=== PATIENT | female | born 1955 | race Caucasian/White ===

== ENCOUNTER → 2017-11-07 10:41 | Outpatient (CLI) | payer OTHER, SELFPAY ==
--- NOTE | 2017-11-07 11:04 | BI_ITS ---
MAMMOGRAPHY - BILATERAL SCREENING REASON FOR EXAM: Female, 62 years old. Routine annual screening examination. PERTINENT HISTORY: Prior right stereotactic breast biopsy. TECHNIQUE: Digital bilateral breast jose antonio (3D mammographic acquisition) in the CC and MLO projections. 2-D mediolateral oblique (MLO) and craniocaudad (CC) views of both breasts were obtained. CAD: Full Field Digital Mammography with Computer Added Detection was performed. COMPARISON: Comparison is made with prior EXAMINATION dated May 03, 2015. FINDINGS: Breast Composition: The breasts are heterogeneously dense, which may obscure small masses. There are no dominant masses or suspicious calcifications. 2 tissue markers are seen in the retroareolar region of the right breast in keeping with prior stereotactic breast biopsy. This is unchanged. No other significant abnormalities are identified. There has been no significant change since the prior study. BI/SCREENING MAMM (CAD), BILAT IMPRESSION: Stable bilateral screening mammogram. Yearly follow-up mammogram recommended. (A) ASSESSMENT CATEGORY: BIRADS Category 2: Benign. A letter regarding these results will be sent to the patient by the facility within 30 days. Approximately 10% of breast cancers are not detected by mammography. A normal mammogram should not delay biopsy of a clinically suspicious abnormality. [id number] Electronically Signed: David Gomez MD at 12:54 EDT Tel [phone], Service support ,
== END ==
PROVIDERS: Visit Provider Obstetrics & Gynecology
DX: Z12.31 Encounter for screening mammogram for malignant neoplasm of breast (principal)
CPT/HCPCS: 77063; 77067

== ENCOUNTER → 2019-08-14 13:12 | Outpatient (CLI) | payer MEDICARE, BC, SELFPAY ==
--- NOTE | 2019-08-14 13:13 | BI_ITS ---
MAMMOGRAPHY - BILATERAL SCREENING REASON FOR EXAM: Female, 64 years old. Routine annual screening examination. PERTINENT HISTORY: Non-contributory. Remote right stereotactic breast biopsy. TECHNIQUE: Digital bilateral breast kenrick (3D mammographic acquisition) in the CC and MLO projections. 2-D mediolateral oblique (MLO) and craniocaudad (CC) views of both breasts were obtained. CAD: Full Field Digital Mammography with Computer Added Detection was performed. COMPARISON: Comparison is made with prior study dated November 07, 2017. FINDINGS: Breast Composition: The breasts are heterogeneously dense, which may obscure small masses. There are no dominant masses or suspicious calcifications. Once again, 2 tissue markers are seen in the retroareolar region of the right breast. No other significant abnormalities are identified. There has been no significant change since the prior study. BI/SCREEN MAMM (CAD) W/KENRICK BILAT IMPRESSION: Stable bilateral screening mammogram. Yearly follow-up mammogram recommended. (A) ASSESSMENT CATEGORY: BIRADS Category 2: Benign. A letter regarding these results will be sent to the patient by the facility within 30 days. Approximately 10% of breast cancers are not detected by mammography. A normal mammogram should not delay biopsy of a clinically suspicious abnormality. [id number] Electronically Signed: David Gomez, at 15:05 EST , Service support ,
== END ==
PROVIDERS: Family Provider Family Medicine; PCP Family Medicine; Referring Provider Obstetrics & Gynecology; Visit Provider Obstetrics & Gynecology
DX: Z12.31 Encounter for screening mammogram for malignant neoplasm of breast (principal)
CPT/HCPCS: 77063; 77067

== ENCOUNTER → 2019-11-20 12:31 | Outpatient (CLI) | payer MEDICARE, BC, SELFPAY ==
--- NOTE | 2019-11-20 12:38 | RAD_ITS ---
STUDY: X-RAY - LEFT KNEE REASON FOR EXAM: Female, 64 years old. osteoarthritis TECHNIQUE: view(s) of the knee. COMPARISON: None. FINDINGS: Normal visualized distal femur. Normal visualized proximal tibia and fibula. Normal proximal tibiofibular articulation. There is mild degenerative arthrosis of the medial femorotibial compartment. There is mild degenerative arthrosis of the lateral femorotibial compartment. There is severe degenerative arthrosis of the patellofemoral articulation. The soft tissue structures are unremarkable. RAD/Knee 4 or More Views IMPRESSION: Degenerative arthrosis. Electronically Signed: Nuris Robert, at 14:50 EDT Tel , Service support ,
--- NOTE | 2019-11-20 12:38 | RAD_ITS ---
STUDY: X-RAY - RIGHT KNEE REASON FOR EXAM: Female, 64 years old. osteoarthritis TECHNIQUE: 4 view(s) of the knee. COMPARISON: None. FINDINGS: Normal visualized distal femur. Normal visualized proximal tibia and fibula. Normal proximal tibiofibular articulation. There is mild degenerative arthrosis of the medial femorotibial compartment. There is mild degenerative arthrosis of the lateral femorotibial compartment. There is severe degenerative arthrosis of the patellofemoral articulation. Calcifications are noted in the medial meniscus consistent with chondrocalcinosis. RAD/Knee 4 or More Views IMPRESSION: Degenerative arthrosis. Chondrocalcinosis. Electronically Signed: Nuris Robert, at 14:16 EDT Tel , Service support ,
[2019-11-20 15:14] LABS: Absolute Lymphocyte Count 1.99 X10^3/uL (0.83-4.51); Absolute Neutrophil Count 2.5 X10^3/uL (2.0-7.7); Basophil# 0.03 X10^3/uL; Basophil% 0.6 % (0-1); Eosinophil# 0.06 X10^3/uL; Eosinophils% 1.2 % (0-5); Hematocrit 41.7 % (37-47); Hemoglobin 13.9 g/dL (12.0-15.0); Lymphocyte # 1.99 X10^3/ul (4.0); Lymphocyte % 40.9 % (19-41); Mean Corp Hgb Conc 33.3 g/dL (32-36); Mean Corpuscular Hgb 30.3 pg (27.0-32.0); Mean Corpuscular Volume 90.8 fL (81-99); Monocyte# 0.25 X10^3/uL; Monocyte% 5.1 % (0-10); NRBC Flagged by Analyzer 0 % (0-5); Neutrophil # 2.52 X10^3/uL (2.7-7.7); Platelet Count 239 K/mm3 (150-450); RBC Distribution Width SD 43.1 fl (35.1-43.9); Red Blood Count 4.59 M/mm3 (4.2-5.4); White Blood Count 4.9 K/mm3 (4.4-11.0)
[2019-11-20 15:37] LABS: AST(SGOT) 20 U/L (15-37); Alanine Aminotransfer ALT/SGPT 22 U/L (13-56); Albumin, Serum 4.1 g/dL (3.2-5.0); Alkaline Phosphatase 70 U/L (45-117); Anion Gap 7 (5-15); BUN 14 mg/dL (7-18); BUN/Creat Ratio 24.3 RATIO (10-20); Calcium,Total 9.1 mg/dL (8.5-10.1); Chloride 105 mmol/L (98-107); Cholesterol 227 mg/dL (200); Creatinine, Serum 0.58 mg/dL (0.55-1.02); EST Glomerular Filtration Rate 111 mL/min (>60); Est Glom Filt Rate - Afr Amer 135 mL/min (>60); Glucose 79 mg/dL (74-106); High Density Lipoprotein 88 mg/dL; Protein, Total 8.1 g/dL (6.4-8.2); Sodium Level 141 mmol/L (136-145); T4 Free Direct 1.33 ng/dL (0.76-1.46); Thyroid Stim Hormone (TSH) 0.18 uIU/mL (0.358-3.74); Triglycerides 102 mg/dL; Very Low Density Lipoprotein 20 mg/dL (5-40)
== END ==
PROVIDERS: PCP Family Medicine; Referring Provider Family Medicine; Visit Provider Family Medicine
DX: E03.9 Hypothyroidism, unspecified (principal); M17.10 Unilateral primary osteoarthritis, unspecified knee
CPT/HCPCS: 36415; 73564; 80053; 80061; 84439; 84443; 85025

== ENCOUNTER → 2019-12-01 09:20 | Outpatient (CLI) | payer MEDICARE, BC, SELFPAY ==
--- NOTE | 2019-12-01 09:26 | US_ITS ---
STUDY: SUPERFICIAL ULTRASOUND - POPLITEAL FOSSA. REASON FOR EXAM: Female, 64 years old. LUMP POSTERIOR RIGHT KNEE ABOUT 1YEAR TECHNIQUE: A superficial ultrasound was performed with real-time and static andrews-scale imaging. COMPARISON: None. FINDINGS: The palpable abnormality corresponds to 9.2 cm x 2.7 cm x 1 cm cyst with low-level echoes within it in the posterior medial aspect of the popliteal fossa. This is in keeping with a popliteal cyst. US/Ext Non Vasc Limited/Soft Tiss IMPRESSION: The palpable abnormality corresponds to 9.2 cm x 2.7 cm by 1 cm cystic structure with low level echoes in keeping with a popliteal cyst. Electronically Signed: David Gomez, at 12:42 EDT , Service support ,
== END ==
PROVIDERS: PCP Family Medicine; Referring Provider Family Medicine; Visit Provider Family Medicine
DX: R22.9 Localized swelling, mass and lump, unspecified (principal)
CPT/HCPCS: 76882

== ENCOUNTER → 2020-01-20 11:00 | Outpatient (CLI) | payer MEDICARE, BC, SELFPAY ==
[2020-01-20 11:03] VITALS: BMI 25.7
[2020-01-26 14:40] LABS: HPV APTIMA, High Risk Negative (Negative)
== END ==
PROVIDERS: PCP Family Medicine; Referring Provider Nurse Practitioner Women's Health; Visit Provider Nurse Practitioner Women's Health
DX: Z12.4 Encounter for screening for malignant neoplasm of cervix (principal)
CPT/HCPCS: 87624; 88175; G0145

== ENCOUNTER → 2020-02-04 08:26 | Outpatient (CLI) | payer MEDICARE, BC, SELFPAY ==
[2020-01-20 11:03] VITALS: BMI 25.7
[2020-02-04 11:29] LABS: Thyroid Stim Hormone (TSH) 0.11 uIU/mL (0.358-3.74)
== END ==
PROVIDERS: PCP Family Medicine; Referring Provider Family Medicine; Visit Provider Family Medicine
DX: E03.9 Hypothyroidism, unspecified (principal)
CPT/HCPCS: 36415; 84443

== ENCOUNTER 2020-07-28 07:38 | Day surgery (SDC) | payer MEDICARE, BC, SELFPAY ==
[2020-07-28] VITALS (7 sets, daily range): BP systolic 93–139; BP diastolic 53–85; PULSE 62–76; RESP 16; TEMP 35.9–36.3; O2SAT 95–99; BMI 27.3
[2020-07-28] MEDS: Lactated Ringers 1,000 ML 100 ML IV (08:30)
--- NOTE | 2020-07-28 08:32 | H&P.OPEN ---
History of Present Illness Date of Admission: 07/28/20 The patient is a 65 year old F for change of bowel habits for colonoscopy. Patient's last colonoscopy was in [address] Oliva patient states she did have a couple of polyps. Patient's father did have colon cancer however he was diagnosed age 80. Patient does spend half her time in [place] and half her time in [place]. Patient states that for about a year she has been having issues on and off with her bowels which have been getting worse. Patient states that in August she noticed change in bowel movements and she also had weight gain even though she eats very healthy vegetarian diet and also exercises regularly. Patient did see her PCP who decreased her levo thyroxine. Patient has tried multiple things to improve her bowel function including gluten-free diet, probiotics, smaller meals, patient already avoids meat and dairy. Patient states that she gets bloating throughout the entire abdomen. She denies reflux symptoms; however does state that in the last 2 months she has been feeling nauseous all the time is not really that hungry also has occasional vomiting about twice a week. Patient states that she has had the nausea and vomiting in the middle of the night which woke her up from sleep. Patient states she has bowel movements every time she uses the restroom and they are usually small?soft with mucous denies hard stools or diarrhea. Patient does take MiraLAX about twice a week and she does noticed an increase amount of stool with this. Patient had previously also tried stool softeners, fiber pills/Metamucil. Patient states recently in [place] she had labs which were normal and also had a transvaginal and pelvic ultrasound which were also normal. Patient does complain of fatigue also noticed some left lower quadrant pain patient states is constant at 3?4/10 denies any change with movement describes it also has a dull ache. Past Medical/Surgical History - Planned Operation Planned Operative Procedure/s: Egd/Colonoscopy Date of Operative Procedure: 07/28/20 Permit Signed: No S.O.S: No Is This Patient Having a Total Joint: No - Previous Hospitalizations/Surgeries HX Hospitalizations: Yes HX of Surgeries: Bunions . Childbirth Any Problems With Anesthesia: No You/Your Family Experience Fever (Hyperthermia) With Anes: No Cholinesterase deficiency: No - Cardiovascular Hx Chest Pain within Last 2 months: No Hx of Irregular Heartbeat and/or Afib: No Hx Heart Attack: No Hx Congestive Heart Failure: No Hx Rheumatic Fever: No Hx Hypertension: No Hx Internal Defibrillator: No Hx Pacemaker: No Hx Cardiac Catheterization: No Hx Cardiac Surgery/Stents/Etc.: No Hx Stress Test: No HX Edema: No Hx Pain in Legs when Walking/Leg Cramps: No - Respiratory Chronic Cough: No HX of Shortness of Breath: No Hoarseness: No Hx Chronic Obstructive Pulmonary Disease (COPD): No Hx Asthma: No Hx Emphysema: No Hx Sleep Apnea: No Hx Oxygen Use at Home: No Hx Respiratory Tract Infection/Cold (presently): No Do You Snore Loudly (louder than talking or can be heard): No Do You Often Feel Tired/ Fatigued/ Sleepy Dring Daytime?: No Has Anyone Observed You Stop Breathing During Sleep?: No Result (for STOP score): Negative Hx Smoking: No Smoking Status: Never smoker - Gastrointestinal Hx Gastroesophageal Reflux: Yes Controlled With Meds: - just started Pepcid PRN Hx Gastrointestinal Disorders: No Hx Gastrointestinal Bleed: No Hx Ulcer: No Hx Hiatal Hernia: No Difficulty Chewing/Swallowing: No Recent Onset of Swallowing Problems: No Special diet followed at home: No Hx Unplanned Weight Loss of 20#: No HX Unplanned Weight Gain of 20#: No - Neurological Hx Seizures: No HX Syncope/Blackout Spells/Unconsciousness: No Hx CVA/Stroke: No Hx Transient Ischemic Attacks (TIA): No Hx Multiple Sclerosis: No Hx Parkinson's Disease: No Hx Head/Neck Injury: No Hx Headaches: No Hx Back Injury/Pain: No Recent Onset of Speech Difficulty: No Restless Legs: No Does patient have nerve stimulator: No Patient instructed to have device shut off: No Rep notified?: No - Blood Disorder Hx Leukemia: No Bleeding Tendencies: No Hx Deep Vein Thrombosis: No Hx High Cholesterol: No Blood Transmitted Disease: No Hx Hepatitis: No Hx Cirrhosis: No Hx Anemia: No Hx Blood Disorders: No - Reproduction : No Is Patient Lactating: No Hx Hysterectomy: No Hx Tubal Ligation: No Are You Post Menopause: Yes - Genitourinary Hx Renal Disease: No - Musculoskeletal Hx Arthritis: No Hx Rheumatoid Arthritis: No Hx Gout: No Recent Onset of an Orthopedic Problem: No - Endocrine Hx Diabetes: No Thyroid Disease: Yes - on meds Hx Steroid Therapy: No - Psycho/Social Hx Substance Use: No Hx Alcohol Use: No Hx Anxiety: Yes Hx Depression: Yes Mental Illness: No Hx Dementia: No - Miscellaneous Hx Cancer: No Recent Exposure to Contagious Disease: No Active MRSA: No Hx of C-Diff: No Any Loose Teeth: No Allergies Penicillins [PCN] Allergy (Verified 07/23/20 14:55) Anaphylaxis - Discharge Is Pt Admitted From a Assisted, or a Fdc: No After D/C, Where Do you Plan to Go: Return Home - From the PAT History Number of Risk Factors: 3 - Physical Exam Vitals/I&O's: Vital Signs Temp Pulse Resp BP Pulse Ox 97.4 F L 76 16 139/85 H 99 07/28/20 08:08 07/28/20 08:08 07/28/20 08:08 07/28/20 08:08 07/28/20 08:08 Oxygen Delivery Method Room Air Weight: 154 lb 1.65 oz Body Mass Index (BMI) 27.3 General: Alert, Oriented x3, Cooperative, No apparent distress HEENT: Atraumatic Lungs: Normal air movement Cardiovascular: Regular rate Abdomen: Soft, Non-Distended, Tender - Minimally tender in lower abdomen, no peritoneal signs Extremities: No clubbing, No cyanosis, No edema Neurological: Cranial nerves II-XII grossly intact Psych/Mental Status: Normal Affect Microbiology Past 72 Hours 07/26/20 12:20 Interface Orders SARS-CoV-2 Antigen (Rapid) - Final Current Medications Lactated Ringer's () 1,000 mls @ 100 mls/hr IV .Q10H RAFIA Last Admin: 07/28/20 08:30 Dose: 100 mls/hr Documented by: Assessment/Plan All Active Problems (Last Updated 01/20/20 @ 11:09 by Sharmila Blank) No history of previous surgery (Acute) Atrophic vaginitis (Acute) History of cervical dysplasia (Acute) Family history of colon cancer in father (Acute) 65-year-old female with nausea and vomiting, bloating, change of bowel habits Procedure Criteria Procedure Type: Elective COVID Risk Discussion: The surgeon/proceduralist and patient have discussed in detail the risk of exposure to and/or potential harm posed by the COVID-19 virus with having a surgery/procedure at this time versus the risk of delaying the surgery/procedure. It is not possible to know either the risk of delaying the surgery or procedure or chance of getting an infection with perfect accuracy, but a joint decision was made between the patient and the surgeon/proceduralist to proceed at this time with the scheduled surgery/procedure as indicated on the consent form. Surgery Risks - Colonoscopy I discussed with the patient the risks of the procedure: Yes Risks Include but are not Limited To: Risks include but are not limited to: Bleeding, perforation requiring further surgery, inability to complete colonoscopy requiring barium enema.
--- NOTE | 2020-07-28 08:45 | EGD_PTH ---
PATIENT: ZAID ZULETA LOC: EN U#:[id number] AGE/SX: 65/F ROOM: RE07/28/[address]: Dr. Charlee Serna MD : 1955 BED: DIS: 07/28/2020 SPEC #: [id number] RECD: 07/28/20 11:02 STATUS: MONICA RERadha #: [id number] TOD: 07/28/20 08:[address]: Charlee Serna DEPT: SURGICAL PATHOLOGY RECD BY: Shandra Bush ENTERED: 07/28/20 11:48 SP TYPE: EGD BIOPSY OT DR: Dr. Sascha Swift MD Tissues: A - Gastric mucous membrane B - Gastric mucous membrane Procedures: Special Stain Group II Surgery Specimen Level IV Alcian Blue/PAS (control) HEADER OPERATION: Colonoscopy, EGD ([facility] [place]) PRE-OP DIAGNOSIS: Nausea, vomiting, bloating, change of bowel habits TISSUE SUBMITTED: A - Antrum biopsy for histo and H. pylori, B - GE junction biopsy MICROSCOPIC DIAGNOSIS A. Antrum, biopsy: Mild to moderate gastritis. See microscopic description and comment. B. GE junction, biopsy: Fragments of gastroesophageal mucosa with mild chronic inflammation. Intestinal metaplasia (goblet cell metaplasia) is not identified. See comment. SJ:patricia 07/29/20 COMMENT A. The results of immunohistochemistry for Helicobacter pylori will be reported separately ([id number]). B. This specimen predominantly consists of gastric mucosa. Alcian blue/PAS stain with matched control is used in the evaluation of the specimen. MICROSCOPIC DESCRIPTION Slides are reviewed. A. The specimen shows fragments of gastric mucosa with chronic inflammatory cell infiltrates in the lamina propria consisting of lymphocytes and plasma cells, consistent with mild to moderate chronic gastritis. GROSS DESCRIPTION A - Received in fixative is one container labeled with the patient's name and designated antrum biopsy. The specimen consists of one irregular fragment of light becerra soft tissue that measures 0.3 x 0.3 x 0.1 cm. The specimen is totally submitted in one cassette. B - Received in fixative is one container labeled with the patient's name and designated GE junction biopsy. The specimen consists of two irregular fragments of light becerra soft tissue that in aggregate measure 0.4 x 0.3 x 0.1 cm. The specimen is totally submitted in one cassette. / SJ:patricia 07/28/20 TC:3 CPT: 09449 x2, 41142
--- NOTE | 2020-07-28 08:45 | IMM_PTH ---
PATIENT: ZAID ZULETA LOC: EN U#:[id number] AGE/SX: 65/F ROOM: RE07/28/[address]: Dr. Charlee Serna MD : 1955 BED: DIS: 07/28/2020 SPEC #: [id number] RECD: 07/28/20 13:50 STATUS: MONICA REQ #: [id number] TOD: 07/28/20 08:[address]: Charlee Serna DEPT: IMMUNOHISTOCHEMISTRY RECD BY: Yamilet Celeste ENTERED: 07/28/20 13:53 SP TYPE: IMMUNO OTHR DR: Dr. Sascha Swift MD Tissues: A - Stomach, NOS Procedures: H Pylori (initial) PHYSICIAN & INSTITUTION [place] [id number] SPECIMEN INFORMATION: Tissue Source: A - Antrum biopsy Clinical Info: Nausea, vomiting, bloating, change of bowel habits Specimen Number: [id number] CPT code: 28717 METHODOLOGY: Deparaffinized sections of prefer/formalin-fixed tissue or PAP/DQ stained slides are incubated with monoclonal/polyclonal antibodies/oligonucleotide probes. Localization is made via biotin free immunoperoxidase method. Appropriate controls are performed and reacted as expected. Results on target cell population are indicated in the following table: RESULTS: ANTIBODY / CLONE RESULT Block A H Pylori (polyclonal) negative These tests were developed and their performance characteristics determined by [facility]. They may not have been cleared or approved by the U.S. Food and Drug Administration. The FDA has determined that such clearance or approval is not necessary. INTERPRETATION: A. Antrum, biopsy: Negative for Helicobacter pylori organisms. SJ:patricia 07/29/20
--- NOTE | 2020-07-28 09:28 | OP.CCLET_ITS ---
07/28/2020 Sascha Swift [address] [place] [address] Re : Upper GI endoscopy procedure for Jennifer Richard Dear Dr. Swift This procedure was performed on Tuesday, July 28, 2020. My impressions and recommendations are as follows: Impressions : - Z-line irregular, 40 cm from the incisors. Biopsied. - Erythematous mucosa in the antrum. Biopsied. - Normal examined duodenum. Recommendations : - Await pathology results. - Discharge patient to home. - Resume previous diet. - Continue present medications. - Use Protonix (pantoprazole) 40 mg PO daily. My findings are described in the full procedure note, which is enclosed. If I can be of further assistance, please feel free to contact me at Doctor phone number(s): , Work: . Sincerely, MD Charlee Jo MD 07/28/2020 9:27:45 AM This report has been signed electronically.
--- NOTE | 2020-07-28 09:28 | OP.EGD_ITS ---
Patient Name: Jennifer Richard Procedure Date: 07/28/2020 8:35 AM Date of : 1955 Age: 65 Procedure: Upper GI endoscopy Indications: Abdominal bloating, Nausea with vomiting Providers: Charlee Serna MD Referring MD: Charlee Serna MD Medicines: Monitored Anesthesia Care Patient Profile: This is a 65 year old female. Complications: No immediate complications. Procedure: Pre-Anesthesia Assessment: - Prior to the procedure, a History and Physical was performed, and patient medications and allergies were reviewed. The patient's tolerance of previous anesthesia was also reviewed. The risks and benefits of the procedure and the sedation options and risks were discussed with the patient. All questions were answered, and informed consent was obtained. Prior Anticoagulants: The patient has taken no previous anticoagulant or antiplatelet agents. ASA Grade Assessment: Per anesthesia. After reviewing the risks and benefits, the patient was deemed in satisfactory condition to undergo the procedure. After obtaining informed consent, the endoscope was passed under direct vision. Throughout the procedure, the patient's blood pressure, pulse, and oxygen saturations were monitored continuously. The gastroscope was introduced through the mouth, and advanced to the second part of duodenum. The upper GI endoscopy was accomplished without difficulty. The patient tolerated the procedure well. Scope In: 8:48:16 AM Scope Out: 8:53:03 AM Total Procedure Duration Time 0 hours 4 minutes 47 seconds Findings: The Z-line was irregular and was found 40 cm from the incisors. Biopsies were taken with a cold forceps for histology. Moderately erythematous mucosa without bleeding was found in the gastric antrum. Biopsies were taken with a cold forceps for histology. Biopsies were taken with a cold forceps for Helicobacter pylori cultures. The examined duodenum was normal. The cardia and gastric fundus were normal on retroflexion. Impression: - Z-line irregular, 40 cm from the incisors. Biopsied. - Erythematous mucosa in the antrum. Biopsied. - Normal examined duodenum. Recommendation: - Await pathology results. - Discharge patient to home. - Resume previous diet. - Continue present medications. - Use Protonix (pantoprazole) 40 mg PO daily. Procedure Code(s): --- Professional --- 85721, Esophagogastroduodenoscopy, flexible, transoral; with biopsy, single or multiple Diagnosis Code(s): --- Professional --- K22.8, Other specified diseases of esophagus K31.89, Other diseases of stomach and duodenum R14.0, Abdominal distension (gaseous) R11.2, Nausea with vomiting, unspecified CPT copyright 2017 [employer]. All rights reserved. The codes documented in this report are preliminary and upon recreation establishment manager review may be revised to meet current compliance requirements. MD Charlee Jo MD 07/28/2020 9:27:45 AM This report has been signed electronically. Number of Addenda: 0 Note Initiated On: 07/28/2020 8:35 AM
--- NOTE | 2020-07-28 09:34 | OP.CCLET_ITS ---
07/28/2020 Sascha Swift [address] [place] [address] Re : Colonoscopy procedure for Jennifer Richard Dear Dr. Swift This procedure was performed on Tuesday, July 28, 2020. My impressions and recommendations are as follows: Impressions : - The entire examined colon is normal on direct and retroflexion views. - No specimens collected. Recommendations : - Discharge patient to home. - Resume previous diet. - Continue present medications. - Repeat colonoscopy in 10 years for screening purposes. My findings are described in the full procedure note, which is enclosed. If I can be of further assistance, please feel free to contact me at Doctor phone number(s): , Work: . Sincerely, MD Charlee Jo MD 07/28/2020 9:33:17 AM This report has been signed electronically.
--- NOTE | 2020-07-28 09:34 | OP.COLON_ITS ---
Patient Name: Jennifer Richard Procedure Date: 07/28/2020 8:53 AM Date of : 1955 Age: 65 Procedure: Colonoscopy Indications: Change in bowel habits Providers: Charlee Serna MD Referring MD: Charlee Serna MD Medicines: Monitored Anesthesia Care Patient Profile: This is a 65 year old female. Last Colonoscopy: 2013. Complications: No immediate complications. Procedure: Pre-Anesthesia Assessment: - Prior to the procedure, a History and Physical was performed, and patient medications and allergies were reviewed. The patient's tolerance of previous anesthesia was also reviewed. The risks and benefits of the procedure and the sedation options and risks were discussed with the patient. All questions were answered, and informed consent was obtained. Prior Anticoagulants: The patient has taken no previous anticoagulant or antiplatelet agents. ASA Grade Assessment: Per anesthesia. After reviewing the risks and benefits, the patient was deemed in satisfactory condition to undergo the procedure. After I obtained informed consent, the scope was passed under direct vision. Throughout the procedure, the patient's blood pressure, pulse, and oxygen saturations were monitored continuously. The colonoscope was introduced through the anus and advanced to the cecum, identified by the appendiceal orifice, ileocecal valve and palpation. The colonoscopy was technically difficult and complex due to a redundant colon. Successful completion of the procedure was aided by using manual pressure. The patient tolerated the procedure well. The quality of the bowel preparation was good. Scope In: 8:54:47 AM Scope Withdrawal Time 0 hours 6 minutes 50 seconds Scope Out: 9:21:20 AM Total Procedure Duration Time 0 hours 26 minutes 33 seconds Findings: The perianal and digital rectal examinations were normal. The entire examined colon appeared normal on direct and retroflexion views. Impression: - The entire examined colon is normal on direct and retroflexion views. - No specimens collected. Recommendation: - Discharge patient to home. - Resume previous diet. - Continue present medications. - Repeat colonoscopy in 10 years for screening purposes. Procedure Code(s): --- Professional --- 27177, Colonoscopy, flexible; diagnostic, including collection of specimen(s) by brushing or washing, when performed (separate procedure) Diagnosis Code(s): --- Professional --- R19.4, Change in bowel habit CPT copyright 2017 [employer]. All rights reserved. The codes documented in this report are preliminary and upon auto accessories installer review may be revised to meet current compliance requirements. MD Charlee Jo MD 07/28/2020 9:33:17 AM This report has been signed electronically. Number of Addenda: 0 Note Initiated On: 07/28/2020 8:53 AM
== END 2020-07-28 10:35 | disposition home or self-care (01) ==
LOC: EN 07:38 → AC 07:39
PROVIDERS: PCP Family Medicine; Referring Provider Surgery; Visit Provider Surgery
PROC: 0DJD8ZZ Inspection of Lower Intestinal Tract, Via Natural or Artificial Opening Endoscopic (ICD-10-PCS; CPT 45378; principal; 2020-07-28 08:40)
DX: K29.50 Unspecified chronic gastritis without bleeding (principal); R14.0 Abdominal distension (gaseous); R11.2 Nausea with vomiting, unspecified; K22.8 Other specified diseases of esophagus; K31.89 Other diseases of stomach and duodenum; R19.4 Change in bowel habit; Z80.0 Family history of malignant neoplasm of digestive organs; Z88.0 Allergy status to penicillin
CPT/HCPCS: 43239; 45378; 87426; 88305; 88313; 88342; C9803; J7120; J2405

== ENCOUNTER → 2020-08-03 15:38 | Outpatient (CLI) | payer MEDICARE, BC, SELFPAY ==
[2020-07-28 08:08] VITALS: BMI 27.3
[2020-08-03 18:24] LABS: ALB/GLOB Ratio 1.1 RATIO (0.9-2.4); AST(SGOT) 14 U/L (15-37); Alanine Aminotransfer ALT/SGPT 20 U/L (13-56); Albumin, Serum 3.7 g/dL (3.2-5.0); Alkaline Phosphatase 69 U/L (45-117); Anion Gap 3 (5-15); BUN 9 mg/dL (7-18); BUN/Creat Ratio 14.4 RATIO (10-20); Calcium,Total 8.6 mg/dL (8.5-10.1); Chloride 106 mmol/L (98-107); Creatinine, Serum 0.63 mg/dL (0.55-1.02); EST Glomerular Filtration Rate 101 mL/min (>60); Est Glom Filt Rate - Afr Amer 122 mL/min (>60); Globulin 3.4 g/dL (2.2-4.2); Glucose 87 mg/dL (74-106); Magnesium 2.1 mg/dL (1.6-2.6); Potassium 4.1 mmol/L (3.5-5.1); Protein, Total 7.1 g/dL (6.4-8.2); Sodium Level 139 mmol/L (136-145)
[2020-08-05 16:09] LABS: Endomysial Antibody IgA Negative (Negative)
[2020-08-06 07:52] LABS: Immunoglobulin A 129 mg/dL (87-352); t-Transglutaminase IgA <2 U/mL (0-3)
== END ==
PROVIDERS: PCP Family Medicine; Referring Provider Family Medicine; Visit Provider Family Medicine
DX: R19.7 Diarrhea, unspecified (principal); R10.9 Unspecified abdominal pain
CPT/HCPCS: 36415; 80053; 82784; 83516; 83735; 86003; 86005; 86255

== ENCOUNTER → 2020-11-08 10:52 | Outpatient (CLI) | payer MEDICARE, BC, SELFPAY ==
[2020-11-08 10:09] VITALS: BMI 26.1
[2020-11-09 08:57] LABS: Cancer Antigen 125 11.2 U/mL (0.0-38.1); Carcinoembryonic Antigen 0.8 ng/mL (0.0-4.7)
== END ==
PROVIDERS: PCP Family Medicine; Referring Provider Obstetrics & Gynecology; Visit Provider Obstetrics & Gynecology
DX: R10.2 Pelvic and perineal pain (principal); G89.29 Other chronic pain; R19.7 Diarrhea, unspecified
CPT/HCPCS: 36415; 82378; 86304; 87086; 87088

== ENCOUNTER → 2020-11-18 08:14 | Outpatient (CLI) | payer MEDICARE, BC, SELFPAY ==
[2020-11-08 10:09] VITALS: BMI 26.1
--- NOTE | 2020-11-18 08:15 | US_ITS ---
STUDY: ABDOMINAL ULTRASOUND REASON FOR EXAM: Female, 65 years old. ABD pain TECHNIQUE: Transabdominal ultrasound was performed with real-time and static andrews scale imaging. TECHNICAL QUALITY: Adequate. COMPARISON: None. FINDINGS: Liver: The liver measures 14 cm. There is normal echogenicity of the liver. The bile ducts are within normal limits. There is hepatic color flow. The direction of portal flow is hepatopetal. There is no demonstrated mass lesion. Portal vein measurement: Gallbladder: Normal distended gallbladder. The gallbladder wall measures 2.2 mm. There is a negative sonographic Oliva''s sign. There is no pericholecystic fluid. There are no gallstones. Common Bile Duct (C.B.D.): The common bile duct measures 4.0 mm. Pancreas: Normal size of the head, body and tail of the pancreas. There is increased echogenicity of the pancreas. There is no demonstrated pancreatic mass or cyst. Spleen: Normal size of the spleen. The spleen measures 8.6 cm x 4 cm x 3.5 cm. Right Kidney: Normal size of the right kidney. The right kidney measures 9.7 cm x 4.8 cm x 6.1 cm. Normal renal cortex. The right cortex measures 1.7 cm. There is no demonstrated renal mass or cyst. There is no right hydronephrosis. Left Kidney: Normal size of the left kidney. The left kidney measures 10 cm x 4.4 cm x 5.9 cm. Normal renal cortex. The left cortex measures 1.6 cm. There is no demonstrated renal mass or cyst. There is no left hydronephrosis. Aorta: Unremarkable I.V.C.: The IVC is patent. There is no ascites. US/Abdomen Complete IMPRESSION: Normal abdominal ultrasound examination. Electronically Signed: David Gomez MD at 15:18 EDT , Service support ,
== END ==
PROVIDERS: PCP Family Medicine; Referring Provider Obstetrics & Gynecology; Visit Provider Obstetrics & Gynecology
DX: R19.7 Diarrhea, unspecified (principal); R14.0 Abdominal distension (gaseous); R32 Unspecified urinary incontinence; R15.9 Full incontinence of feces
CPT/HCPCS: 76700

== ENCOUNTER → 2021-04-18 09:01 | Outpatient (CLI) | payer MEDICARE, BC, SELFPAY ==
[2021-04-18 10:39] LABS: Absolute Lymphocyte Count 1.42 X10^3/uL (0.83-4.51); Basophil# 0.04 X10^3/uL; Eosinophil# 0.14 X10^3/uL; Eosinophils% 3.6 % (0-5); Hematocrit 38.1 % (37-47); Hemoglobin 12.7 g/dL (12.0-15.0); Lymphocyte # 1.42 X10^3/ul (0.83-4.51); Lymphocyte % 36.8 % (19-41); Mean Corp Hgb Conc 33.3 g/dL (32-36); Mean Corpuscular Hgb 30.8 pg (27.0-32.0); Mean Corpuscular Volume 92.3 fL (81-99); Mean Platelet Vol. 9.9 fl (6.2-12.0); Monocyte# 0.28 X10^3/uL; Monocyte% 7.3 % (0-10); NRBC Flagged by Analyzer 0 % (0-5); Neutrophil # 1.97 X10^3/uL (2.7-7.7); Platelet Count 259 K/mm3 (150-450); RBC Distribution Width CV 12.9 % (11.6-14.6); RBC Distribution Width SD 43.6 fl (35.1-43.9); Red Blood Count 4.13 M/mm3 (4.2-5.4); White Blood Count 3.9 K/mm3 (4.4-11.0)
[2021-04-18 11:22] LABS: ALB/GLOB Ratio 0.9 RATIO (0.9-2.4); AST(SGOT) 15 U/L (15-37); Alanine Aminotransfer ALT/SGPT 17 U/L (13-56); Albumin, Serum 3.6 g/dL (3.2-5.0); Alkaline Phosphatase 62 U/L (45-117); Anion Gap 8 (5-15); BUN 12 mg/dL (7-18); Calcium,Total 8.7 mg/dL (8.5-10.1); Chloride 103 mmol/L (98-107); Cholesterol 213 mg/dL (200); EST Glomerular Filtration Rate 106 mL/min (>60); Est Glom Filt Rate - Afr Amer 128 mL/min (>60); Globulin 4.1 g/dL (2.2-4.2); Glucose 103 mg/dL (74-106); High Density Lipoprotein 81 mg/dL; Protein, Total 7.7 g/dL (6.4-8.2); Sodium Level 138 mmol/L (136-145); Thyroid Stim Hormone (TSH) 1.01 uIU/mL (0.358-3.74); Triglycerides 86 mg/dL; Very Low Density Lipoprotein 17 mg/dL (5-40)
== END ==
PROVIDERS: PCP Family Medicine; Referring Provider Family Medicine; Visit Provider Family Medicine
DX: E03.9 Hypothyroidism, unspecified (principal); E78.00 Pure hypercholesterolemia, unspecified
CPT/HCPCS: 80053; 80061; 84439; 84443; 85025

== ENCOUNTER → 2021-05-16 12:53 | Outpatient (CLI) | payer MEDICARE, BC, SELFPAY ==
--- NOTE | 2021-05-16 12:56 | US_ITS ---
STUDY: SUPERFICIAL ULTRASOUND - LEFT ARM REASON FOR EXAM: Female, 66 years old. SUBQ MASS TECHNIQUE: A superficial ultrasound was performed with real-time and static andrews-scale imaging. COMPARISON: None. FINDINGS: Multiple longitudinal and transverse ultrasound images of the left arm demonstrate a 1.7 x 3.2 cm oval hypoechoic mass of the deep soft tissues adjacent to the humerus correlation with MRI with contrast is recommended. US/Ext Non Vasc Limited/Soft Tiss IMPRESSION: Ultrasound confirms a 3.2 cm oval hypoechoic mass of the deep soft tissues adjacent to the humerus and correlation with MRI with contrast is recommended. Electronically Signed: Carlos Macias MD at 9:05 EDT Tel , Service support ,
== END ==
PROVIDERS: PCP Family Medicine; Referring Provider Family Medicine; Visit Provider Family Medicine
DX: R22.9 Localized swelling, mass and lump, unspecified (principal)
CPT/HCPCS: 76882

== ENCOUNTER → 2021-06-21 11:05 | Outpatient (CLI) | payer MEDICARE, BC, SELFPAY ==
--- NOTE | 2021-06-21 11:06 | MRI_ITS ---
STUDY: MRI UPPER EXTREMITY LEFT HUMERUS WITH T WITHOUT CONTRAST REASON FOR EXAM: Lateral soft tissue mass at mid/distal humerus for one year. TECHNIQUE: Standardized fat and water weighted pulse sequences were obtained in all 3 orthogonal planes, pre-and post contrast administration. IV 13ml Dotarem was administered for the contrast portion of the examination. COMPARISON: Ultrasound 05/16/2021. FINDINGS: Normal subcutis adipose space. Normal visualized muscles and fascia. There is a well-defined fusiform mass in the region of the lateral neurovascular bundle at the level of the mid to distal humeral diaphysis corresponding to the skin markers measuring 1.8 x 1.9 x 2.8 cm (AP x transverse x length). The mass is homogeneous with intermediate T1 signal (T1 axial images 14-16). The mass is mildly hyperintense on T2 images with a fascicular sign (T2 sagittal images 16-19). There is contrast enhancement of the mass with a thin rim of enhancement and fascicular internal contrast enhancement. Normal humerus. MRI/Upper Ext No Joint W/WO Cont IMPRESSION: Soft tissue mass in the region of the lateral neurovascular bundle, neurogenic tumor is the leading differential consideration. Electronically Signed: Adiel Herman MD at 13:01 EST Tel , Service support ,
[2021-06-21 11:45] LABS: CREATININE FINGERSTICK < 0.6 mg/dL (0.55-1.02); EGFR FINGERSTICK > 60.0000 mL/min (>60)
== END ==
PROVIDERS: PCP Family Medicine; Referring Provider Family Medicine; Visit Provider Family Medicine
DX: M79.89 Other specified soft tissue disorders (principal)
CPT/HCPCS: 73220; A9575

== ENCOUNTER → 2021-11-29 | Outpatient (CLI) | payer MEDICARE, BC, SELFPAY ==
--- NOTE | 2021-11-29 14:45 | BI_ITS ---
MAMMOGRAPHY - BILATERAL SCREENING REASON FOR EXAM: Female, 66 years old. Routine annual screening examination. PERTINENT HISTORY: Non-contributory. Remote right stereotactic breast biopsy. TECHNIQUE: Digital bilateral breast kenrick (3D mammographic acquisition) in the CC and MLO projections. 2-D mediolateral oblique (MLO) and craniocaudad (CC) views of both breasts were obtained. CAD: Full Field Digital Mammography with Computer Added Detection was performed. COMPARISON: Screening mammogram from 08/14/2019. 11/07/2017. FINDINGS: Breast Composition: The breasts are heterogeneously dense, which may obscure small masses. There are no dominant masses or suspicious calcifications. Stable right breast biopsy markers. No other significant abnormalities are identified. There has been no significant change since the prior study. BI/SCRN MAMM (CAD)W/KENRICK BILAT IMPRESSION: Stable bilateral screening mammogram. Yearly follow-up mammogram recommended. (A) ASSESSMENT CATEGORY: BIRADS Category 2: Benign. A letter regarding these results will be sent to the patient by the facility within 30 days. Approximately 10% of breast cancers are not detected by mammography. A normal mammogram should not delay biopsy of a clinically suspicious abnormality. [id number] Electronically Signed: Eric Gutierrez, at 15:52 EDT ,
== END | disposition home or self-care (01) ==
LOC: OPBI 14:44
PROVIDERS: PCP Family Medicine; Visit Provider Obstetrics & Gynecology
DX: Z12.31 Encounter for screening mammogram for malignant neoplasm of breast (principal)
CPT/HCPCS: 77063; 77067

== ENCOUNTER → 2022-03-22 | Outpatient (CLI) | payer MEDICARE, BC, SELFPAY ==
[2022-03-22 09:08] LABS: Hematocrit 39.4 % (37-47); Hemoglobin 13.2 g/dL (12.0-15.0); Mean Corp Hgb Conc 33.5 g/dL (32-36); Mean Corpuscular Hgb 30.5 pg (27.0-32.0); Mean Platelet Vol. 9.4 fl (6.2-12.0); Platelet Count 241 K/mm3 (150-450); RBC Distribution Width CV 13.4 % (11.6-14.6); RBC Distribution Width SD 45.9 fl (35.1-43.9); Red Blood Count 4.33 M/mm3 (4.2-5.4); White Blood Count 4.5 K/mm3 (4.4-11.0)
[2022-03-22 09:33] LABS: Vitamin B12 375 pg/mL (211-911); Vitamin D,25 Hydroxy 31.4 ng/mL
[2022-03-22 09:37] LABS: Hemoglobin A1c 5.2 % (3.8-5.6)
[2022-03-22 09:40] LABS: ALB/GLOB Ratio 0.9 RATIO (0.9-2.4); AST(SGOT) 18 U/L (15-37); Alanine Aminotransfer ALT/SGPT 20 U/L (13-56); Albumin, Serum 3.6 g/dL (3.2-5.0); Alkaline Phosphatase 60 U/L (45-117); Anion Gap 6 (5-15); BUN 14 mg/dL (7-18); BUN/Creat Ratio 21.1 RATIO (10-20); Calcium,Total 8.6 mg/dL (8.5-10.1); Chloride 107 mmol/L (98-107); Cholesterol 228 mg/dL (200); Creatinine, Serum 0.66 mg/dL (0.55-1.02); EST Glomerular Filtration Rate 94 mL/min (>60); Est Glom Filt Rate - Afr Amer 114 mL/min (>60); Globulin 3.9 g/dL (2.2-4.2); Glucose 100 mg/dL (74-106); High Density Lipoprotein 88 mg/dL; Potassium 4.1 mmol/L (3.5-5.1); Protein, Total 7.5 g/dL (6.4-8.2); Sodium Level 139 mmol/L (136-145); Triglycerides 104 mg/dL; Very Low Density Lipoprotein 21 mg/dL (5-40)
[2022-03-22 09:53] LABS: T4 Free Direct 1.15 ng/dL (0.76-1.46); Thyroid Stim Hormone (TSH) 1.43 uIU/mL (0.358-3.74)
== END | disposition home or self-care (01) ==
PROVIDERS: PCP Family Medicine; Referring Provider Obstetrics & Gynecology; Visit Provider Obstetrics & Gynecology
DX: E03.9 Hypothyroidism, unspecified (principal); R53.83 Other fatigue; Z13.21 Encounter for screening for nutritional disorder; R14.0 Abdominal distension (gaseous); Z01.419 Encounter for gynecological examination (general) (routine) without abnormal findings
CPT/HCPCS: 36415; 80053; 80061; 82306; 82607; 83036; 84439; 84443; 85027

== ENCOUNTER → 2022-03-23 | Outpatient (CLI) | payer MEDICARE, BC, SELFPAY ==
--- NOTE | 2022-03-23 15:25 | BD_ITS ---
STUDY: DUAL ENERGY X-RAY ABSORPTIOMETRY / DXA REASON FOR EXAM: Female, 66 years old. Postmenopausal TECHNIQUE: Bone Mineral Density (BMD) measurements of lumbar spine and bilateral hips were obtained. COMPARISON: Comparison is made with prior study dated 01/05/2010. FINDINGS: Lumbar Spine (L1-L4): g/cm2 (1.128) / T-score (0.7) / Z-score (2.7) Findings are suggestive of normal bone density with a low fracture risk. Left Femur Total: g/cm2 (0.970) / T-score (0.2) / Z-score (1.6) Left Femoral Neck: g/cm2 (0.835) / T-score (-0.1) / Z-score (1.5) Right Femur Total: g/cm2 (0.970) / T-score (0.2) / Z-score (1.6) Right Femoral Neck: g/cm2 (0.874) / T-score (0.2) / Z-score (1.9) The T-Scores on the most recent prior examination were: Lumbar Spine (L1-L4): There has been worsening of bone density since the previous examination. Left Femur Total: which represents a worsening of 12%. Right Femur Total: which represents a worsening of 8.5%. BD/Dexa Bone Density Study IMPRESSION: The patient is considered normal as outlined below according to World Saleem Organization (WHO) criteria with a low fracture risk. There has been worsening of bone density since the previous examination. Reference Information: The T-score is the number of standard deviations above or below the standard which is normal for young adults at their peak bone mineral density. The World Health Organization (WHO) interprets the T-scores as follows: Above -1 Normal bone density Between -1 and -2.5 Osteopenia Equal to / or below -2.5 Osteoporosis As a practical clinical guideline, osteopenia may be graded as follows: Mild -1 through -1.5 Moderate -1.6 through -2.0 Severe -2.1 through -2.4 The Z-score is the number of standard deviations above or below age-matched controls. A Z-score of less than -1.5 would be considered abnormal. References: 1. NIH Osteoporosis and Related Bone Diseases www osteo.org 2. International Society for Clinical Densitometry www iscd.org 3. National Osteoporosis Foundation www nof.org Electronically Signed: David Gomez MD at 8:21 EDT ,
== END | disposition home or self-care (01) ==
LOC: OPBD 15:23
PROVIDERS: PCP Family Medicine; Visit Provider Obstetrics & Gynecology
DX: Z78.0 Asymptomatic menopausal state (principal)
CPT/HCPCS: 77080

== ENCOUNTER → 2022-04-11 | Outpatient (CLI) | payer MEDICARE, BC, SELFPAY ==
--- NOTE | 2022-04-11 14:55 | CT_ITS ---
STUDY: CT ABDOMEN AND PELVIS WITHOUT CONTRAST REASON FOR EXAM: Female, 67 years old. right flank pain RADIATION DOSAGE (If Supplied By Facility): CTDIvol = ( 10.40 ) mGy, DLP = ( 467.67 ) mGycm TECHNIQUE: Transaxial images were obtained from the dome of the diaphragm to the symphysis pubis without oral contrast, and without intravenous contrast. Sagittal and coronal images were reconstructed. Individualized dose optimization techniques were used for this CT. COMPARISON: Abdominal ultrasound November 18, 2020. FINDINGS: The visualized lung bases are unremarkable. The visualized portions of the heart are within normal limits. Normal liver. Normal gallbladder and extrahepatic biliary system. Normal spleen. Normal bilateral adrenal glands. Normal right kidney. Normal left kidney. Normal visualized stomach. Normal small intestine. Normal colon. The appendix is visualized and appears normal. Normal abdominal aorta. Normal inferior vena cava. Normal retroperitoneum. Transabdominal free air. Normal urinary bladder. Uterus grossly normal. No adnexal mass is seen. Normal abdominal wall. Multilevel degenerative changes of the lower thoracic and lumbar spine. CT/Abdomen/Pelvis without Cont IMPRESSION: No acute findings in the abdomen or pelvis. No hydronephrosis or urinary tract stones. Right colon and terminal ileum are grossly normal. Appendix not visualized. No secondary signs of acute appendicitis. Electronically Signed: Eyal Landeros MD at 8:34 EDT Reading Location ID and State: [id number] / , Service support ,
== END | disposition home or self-care (01) ==
LOC: CT 14:53
PROVIDERS: PCP Family Medicine; Referring Provider Obstetrics & Gynecology; Visit Provider Obstetrics & Gynecology
DX: R10.9 Unspecified abdominal pain (principal); R53.83 Other fatigue; R14.0 Abdominal distension (gaseous)
CPT/HCPCS: 74176

== ENCOUNTER → 2022-04-27 | Outpatient (CLI) | payer MEDICARE, BC, SELFPAY ==
--- NOTE | 2022-04-27 12:20 | US_ITS ---
EXAM: US PELVIS TRANSABDOMINAL AND TRANSVAGINAL, COMPLETE CLINICAL INDICATION: pelvic pain TECHNIQUE: Transabdominal and transvaginal pelvic ultrasound was performed with grayscale and color Doppler imaging. Transvaginal imaging was used for better evaluation of the endometrium and adnexa. This report was created using [employer] report [employer] technology. COMPARISON: None. FINDINGS: UTERUS/CERVIX: Anteverted. 4.8 x 4.5 x 2.8 cm. Fibroid noted in the uterine fundus measuring up to 2.4 cm. Endometrium: 2 mm. RIGHT OVARY: 1.9 x 1.5 x 1.0 cm. Blood flow is present in the right ovary. LEFT OVARY: 1.7 x 1.4 x 1.0 cm. Blood flow is present in the left ovary. FREE FLUID: None. US/Pelvic (Non ) IMPRESSION: Fibroid noted in the uterine fundus measuring up to 2.4 cm. Otherwise unremarkable pelvic ultrasound. Electronically Signed: Eliazar Broussard MD at 0:50 EDT ,
--- NOTE | 2022-04-27 12:20 | US_ITS ---
EXAM: US PELVIS TRANSABDOMINAL AND TRANSVAGINAL, COMPLETE CLINICAL INDICATION: pelvic pain TECHNIQUE: Transabdominal and transvaginal pelvic ultrasound was performed with grayscale and color Doppler imaging. Transvaginal imaging was used for better evaluation of the endometrium and adnexa. This report was created using [employer] report [employer] technology. COMPARISON: None. FINDINGS: UTERUS/CERVIX: Anteverted. 4.8 x 4.5 x 2.8 cm. Fibroid noted in the uterine fundus measuring up to 2.4 cm. Endometrium: 2 mm. RIGHT OVARY: 1.9 x 1.5 x 1.0 cm. Blood flow is present in the right ovary. LEFT OVARY: 1.7 x 1.4 x 1.0 cm. Blood flow is present in the left ovary. FREE FLUID: None. US/Transvaginal Non- IMPRESSION: Fibroid noted in the uterine fundus measuring up to 2.4 cm. Otherwise unremarkable pelvic ultrasound. Electronically Signed: Eliazar Broussard MD at 0:50 EDT ,
== END | disposition home or self-care (01) ==
LOC: US 12:19
PROVIDERS: PCP Family Medicine; Visit Provider Obstetrics & Gynecology
DX: R10.2 Pelvic and perineal pain (principal)
CPT/HCPCS: 76830; 76856

== ENCOUNTER 2022-07-03 13:35 | Emergency (ER) | payer MEDICARE, BC, SELFPAY ==
[2022-07-03 13:37] VITALS: BP 141/103; PULSE 70; RESP 16; TEMP 36.5; O2SAT 99; BMI 29.6
--- NOTE | 2022-07-03 13:59 | CT_ITS ---
STUDY: CT CERVICAL SPINE WITHOUT CONTRAST REASON FOR EXAM: Female, 67 years old. Neck injury due to a fall. RADIATION DOSAGE (If Supplied By Facility): CTDIvol = ( 23.33 ) mGy, DLP = ( 494.48 ) mGycm TECHNIQUE: High resolution transaxial imaging was performed without contrast material. Sagittal and coronal images were reconstructed. Individualized dose optimization techniques were used for this CT. COMPARISON: None FINDINGS: Normal craniovertebral junction. There are degenerative changes of the anterior atlantoaxial articulation. Normal odontoid process. There is straightening of the normal cervical lordosis. Normal vertebral bodies and posterior osseous elements. C2-3: Normal endplates. Normal disc height and morphology. Normal central canal and intervertebral neuroforamina. C3-4: Moderate degree of disc space narrowing and spondylosis. Uncovertebral arthrosis. Mild right neural foraminal stenosis. C4-5: Marked degree of disc space narrowing. Spondylosis. Uncovertebral arthrosis. Bilateral neural foraminal stenosis is worse on the right side. C5-6: Marked degree of disc space narrowing. Spondylosis. Uncovertebral arthrosis. Bilateral neural foraminal stenosis more prominent on the left side. C6-7: Marked degree of disc space narrowing. Spondylosis. Uncovertebral arthrosis. Bilateral neural foraminal stenosis worse on the right side. Mild degree of right paracentral canal stenosis. C7-T1: Normal endplates. Normal disc height and morphology. Normal central canal and intervertebral neuroforamina. Normal visualized soft tissue structures. CT/Spine Cervical without Contras IMPRESSION: Multilevel degenerative changes, as described above. Electronically Signed: David Gomez MD at 14:44 EST ,
--- NOTE | 2022-07-03 13:59 | CT_ITS ---
STUDY: CT BRAIN WITHOUT CONTRAST REASON FOR EXAM: Female, 67 years old. Head injury due to a fall. Laceration of the forehead. RADIATION DOSAGE (If Supplied By Facility): CTDIvol = ( 44.99 ) mGy, DLP = ( 796.11 ) mGycm TECHNIQUE: Transaxial CT imaging of the brain was performed without administration of intravenous contrast material. Individualized dose optimization techniques were used for this CT. COMPARISON: No relevant priors. FINDINGS: Skull hematoma overlying the left frontal bone with overlying laceration. Normal calvarium. There is mild cerebral atrophy with widening of the extra-axial spaces and ventricular dilatation. Normal white matter tracts of the cerebral hemispheres. Normal basal ganglia and thalami. Normal brainstem. Normal cerebellum. There is no intracranial hemorrhage. There are no findings of an acute ischemic infarction. Normal visualized paranasal sinuses. CT/Brain/Head without Contrast IMPRESSION: Chronic involutional changes of the brain. Scalp hematoma overlying the left frontal bone with laceration. Electronically Signed: David Gomez MD at 14:42 EST ,
--- NOTE | 2022-07-03 14:01 | EDS_ITS ---
HPI HPI - Fall History of Present Illness Chief Complaint: Fall Informant: patient Occured/Mechanism Occurred: Today Pain/Injury Pain Location: face Narrative Narrative: Patient presents after mechanical fall at home. She fell down 2 or 3 steps into her garage. She is a laceration to the left forehead. She reports her tetanus update was within the past 10 years. She had some mild right knee pain when ambulating but otherwise denies any bony injury. Tetanus Immunization: 5-10 years PFSH PFSH Medical History Bunion GERD (gastroesophageal reflux disease) Home Medications escitalopram oxalate 10 mg tablet (Lexapro) 10 mg PO DAILY 07/20/20 [History Last Taken Unknown] levothyroxine 112 mcg tablet (Synthroid) See Rx Instructions PO DAILY 07/20/20 [History Last Taken Unknown] zolpidem 5 mg tablet (Ambien) 5 mg PO QHS PRN insomnia #30 tabs 05/05/22 [Rx Last Taken Unknown] Allergy/AdvReac Type Severity Reaction Status Date / Time Penicillins [PCN] Allergy Anaphylaxis Verified 03/21/22 12:57 Family History Father Colon cancer, Onset Age: 80 Surgical History History of bunionectomy History of cataract extraction History of colonoscopy (~06/2020) History of esophagogastroduodenoscopy (EGD) (~06/2020) History of surgery on arm S/P LEEP Social History number of children: 2 current occupational status: employed current occupation: [employer] Smoking Status: Never smoker alcohol intake: current alcohol intake frequency: 3 or more drinks per day substance use type: does not use diet: vegetarian seatbelt use: always do you feel safe at home: Yes ROS ROS ED Constitutional Constitutional ED: Denies chills or fever(s) Eyes Eyes: Denies change in vision or discharge from eye(s) ENT ENT ED: Denies discharge from eye(s), rhinorrhea or sore throat Cardiovascular Cardiovascular: Denies chest pain or palpitations Respiratory/Chest Respiratory/Chest: Denies cough or dyspnea Gastrointestinal Gastrointestinal: Denies abdominal pain, diarrhea, nausea or vomiting Genitourinary Genitourinary ED: Denies dysuria Musculoskeletal Musculoskeletal: Reports extremity pain; Denies back pain Integumentary Reports other Details: Left forehead laceration ; Denies Abrasions or rash Neurologic Neurologic: Denies headache(s) or weakness Allergic/Immunologic Allergic/Immunologic ED: Denies lip swelling or urticaria EXAM Physical Exam Const Vital Signs: 07/03/22 13:37 07/03/22 13:40 Temperature 97.7 F L Temperature Source Oral Pulse Rate 70 Respiratory Rate 16 Respiratory Effort Normal Respiratory Depth Normal Respiratory Pattern Normal Blood Pressure 141/103 H Blood Pressure Mean 115 Pulse Ox 99 Oxygen Delivery Method Room Air Room Air Positive well nourished and well developed General Appearance ED: well developed HEENT Reports normocephalic HEENT Narrative: 2 cm laceration noted to the left forehead. Active pulsatile bleeding noted. Eyes PERRL and EOMs intact bilaterally Neck supple Neck Narrative: No C-spine tenderness. Chest Wall inspection of chest normal and palpation of chest normal Resp normal respiratory effort and clear to auscultation bilaterally Cardio regular rate and regular rhythm GI normal to inspection, nondistended, normoactive bowel sounds Palpation: soft Extremity normal to inspection Extremity Narrative: No reproducible tenderness with palpation over the lower extremities. Neuro oriented x3 and no sensory deficits noted Sensorium / Orientation: alert Motor Exam: strength 5/5 throughout Psych mental status grossly normal Skin Skin Narrative: Forehead laceration as noted above. MDM MDM MDM Narrative Medical decision making narrative: Pressure dressing is applied over the forehead. Patient sent for CT scan of the head and C-spine. Her tetanus is up-to-date. Radiography Diagnostic Testing: Clinical Impression(s) from Imaging Studies Brain CT 07/03/22 13:59 IMPRESSION: Chronic involutional changes of the brain. Scalp hematoma overlying the left frontal bone with laceration. Electronically Signed: David Gomez MD at 14:42 EST , Cervical Spine CT 07/03/22 13:59 IMPRESSION: Multilevel degenerative changes, as described above. Electronically Signed: David Gomez MD at 14:44 EST , Knee X-Ray 07/03/22 16:20 IMPRESSION: Degenerative arthrosis of the right knee. This appears minimally increased when compared to the previous study. Electronically Signed: Alexandr Taylor DO at 16:53 EST , Treatment and Re-Evaluation Narrative: CT scan of the head and C-spine reveal scalp hematoma but no underlying bony or brain injury. Left forehead laceration is anesthetized with 4 cc of 2% lidocaine with epinephrine. Pressure is held to either side of the wound by nursing staff to help control bleeding. Four sutures with 4-0 Vicryl are placed to attempt to control the bleeding. Following this for simple incision a 5-0 nylon are placed to help hold the skin in place. Wound is cleansed and dressed. No further ble eding noted at this time. Dressing is applied. Following this patient does note increased pain in her right knee. She is sent for right knee x-rays and Tylenol is given. X-ray per my interpretation reveals no acute bony fracture. Mild arthritic changes are noted. Radiology interpretation is reviewed and agrees. At this time patient be discharged to home with friend who is at bedside. She will use Tylenol as needed for pain. Return instructions are given. Discharge Plan Triage Chief Complaint: Fall ED Provider: Breonna Barrow Dx/Rx/DC Orders Clinical Impression: Fall, Forehead laceration, Closed head injury, Contusion of knee Instructions: ED Contusion, Lower Extremity, ED Mechanical Fall, ED Head Injury (Adult), ED Laceration: All Closures, ED Laceration Minimize Scars Prescriptions: No Action levothyroxine [Synthroid] 112 mcg tablet See Rx Instructions PO DAILY Rx Instructions: 75 mcg PO daily; escitalopram oxalate [Lexapro] 10 mg tablet 10 mg PO DAILY zolpidem [Ambien] 5 mg tablet 5 mg PO QHS PRN (Reason: insomnia) Qty: 30 3RF Primary Care Provider: Yasmin Muhammad Referrals: Yasmin Muhammad, DO [Primary Care Provider] - 7 Days for suture removal Disposition Disposition: Home, Self Care
--- NOTE | 2022-07-03 16:20 | RAD_ITS ---
STUDY: X-RAY - RIGHT KNEE REASON FOR EXAM: Female, 67 years old. Fell while walking to the mailbox. TECHNIQUE: 4 view(s) of the knee. COMPARISON: November 20, 2019. FINDINGS: Normal visualized distal femur. Normal visualized proximal tibia and fibula. Normal proximal tibiofibular articulation. There is no acute fracture, dislocation or destructive osseous pathology. There is mild degenerative arthrosis of the medial femorotibial compartment. Normal lateral femorotibial compartment. There is moderate degenerative arthrosis of the patellofemoral articulation. There is no demonstrated joint effusion. The soft tissue structures are unremarkable. RAD/Knee 4 or More Views IMPRESSION: Degenerative arthrosis of the right knee. This appears minimally increased when compared to the previous study. Electronically Signed: Alexandr Taylor DO at 16:53 EST ,
[2022-07-03] MEDS: Acetaminophen 500 MG Tablet 1000 MG PO (16:54)
[2022-07-03 17:43] VITALS: BP 142/71; PULSE 87; RESP 16; O2SAT 99
== END 2022-07-03 17:43 | disposition home or self-care (01) ==
PROVIDERS: Emergency Provider Emergency Medicine; PCP Family Medicine; Visit Provider Emergency Medicine
DX: S01.81XA Laceration without foreign body of other part of head, initial encounter (principal); S80.01XA Contusion of right knee, initial encounter; W10.9XXA Fall (on) (from) unspecified stairs and steps, initial encounter; Z79.899 Other long term (current) drug therapy
CPT/HCPCS: 12001; 70450; 72125; 73564; 99285

== ENCOUNTER 2022-08-27 10:54 | Emergency (ER) | payer MEDICARE, BC, SELFPAY ==
[2022-08-27 10:55] VITALS: BP 111/70; PULSE 71; RESP 14; TEMP 36.6; O2SAT 97; BMI 28.5
--- NOTE | 2022-08-27 11:06 | EX.ED.UPPERE ---
HPI History of Present Illness Chief Complaint: Upper Extremity Injury Narrative Narrative: 67-year-old female presenting with right wrist pain. She states she has slip and fall outside on a bit of ice. She fell forward onto outstretched hands. She complains of wrist pain in the right lateral wrist on the dorsal surface. She does not have any hand pain. No numbness or tingling. She did not hit her head or lose consciousness. [facility] FOR[facility], [facility] Medical History Bunion GERD (gastroesophageal reflux disease) Home Medications escitalopram oxalate 10 mg tablet (Lexapro) 10 mg PO DAILY 07/20/20 [History Last Taken Unknown] levothyroxine 112 mcg tablet (Synthroid) See Rx Instructions PO DAILY 07/20/20 [History Last Taken Unknown] zolpidem 5 mg tablet (Ambien) 5 mg PO QHS PRN insomnia #30 tabs 05/05/22 [Rx Last Taken Unknown] hydrocodone-acetaminophen 5-325mg 5mg-325mg 1 tab PO Q6H PRN pain 3 days #12 tabs 08/27/22 [Rx Last Taken Unknown] Allergy/AdvReac Type Severity Reaction Status Date / Time Penicillins [PCN] Allergy Anaphylaxis Verified 08/27/22 10:55 Family History Father Colon cancer, Onset Age: 80 Surgical History History of bunionectomy History of cataract extraction History of colonoscopy (~06/2020) History of esophagogastroduodenoscopy (EGD) (~06/2020) History of surgery on arm S/P LEEP Social History number of children: 2 current occupational status: employed current occupation: [employer] Smoking Status: Never smoker alcohol intake: current alcohol intake frequency: 3 or more drinks per day substance use type: does not use diet: vegetarian seatbelt use: always do you feel safe at home: Yes ROS ROS ED Constitutional Constitutional ED: Denies chills, fever(s) or sweats Eyes Eyes: Denies blurry vision or change in vision ENT ENT ED: Denies ear pain or sore throat Cardiovascular Cardiovascular: Denies chest pain, palpitations or racing heartbeat Respiratory/Chest Respiratory/Chest: Denies cough, dyspnea or sputum Gastrointestinal Gastrointestinal: Denies abdominal pain, constipation, diarrhea, nausea or vomiting Genitourinary Genitourinary ED: Denies dysuria, hematuria or urinary frequency Musculoskeletal Musculoskeletal: Reports other Details: Right wrist pain ; Denies myalgias or neck pain Integumentary Denies abscess, Abrasions or rash Neurologic Neurologic: Denies headache(s), paresthesias or weakness Psychiatric Psychiatric: Denies anxiety, depression, suicidal ideation or suicidal thoughts Endocrine Endocrinology: Denies polydipsia or polyuria EXAM Physical Exam Const Vital Signs: 08/27/22 10:55 Temperature 98 F Temperature Source Temporal Pulse Rate 71 Respiratory Rate 14 Blood Pressure 111/70 Blood Pressure Mean 83 Pulse Ox 97 Oxygen Delivery Method Room Air Positive well nourished General Appearance ED: NAD HEENT Reports moist mucous membranes normocephalic Eyes PERRL and EOMs intact bilaterally Resp normal respiratory effort and clear to auscultation bilaterally Cardio regular rate and regular rhythm GI non-tender Extremity Extremity Narrative: Tenderness to palpation of the right lateral wrist on the dorsal surface. Does not appear to be a tender in the anatomical snuffbox however. There are some swelling/edema and bruising noted over the dorsal surface in this area. Right hand is nontender to palpation. Right hand neurovascular intact brisk cap refill to all 5 fingers. Neuro oriented x3, CN's II-XII intact bilaterally and moves all extremities Sensorium / Orientation: alert Motor Exam: strength 5/5 throughout Psych mental status grossly normal MDM MDM MDM Narrative Medical decision making narrative: Patient presenting with right wrist pain. There is some swelling and bruising of the right radial region. No other pain is palpated. This concerning for either a sprain or fracture. I suspect that it is broken. Patient had an IV established in the left arm. Medicated with morphine and Zofran. X-rays were obtained and on my interpretation shows an impacted mildly angulated distal radius fracture. Patient was consented for conscious sedation with propofol and closed reduction. Patient was discussed with Dr. Galindo who recommended a sugar-tong splint. Patient [id number] with a total of 100 cc propofol given in 20 cc doses to maintain anesthesia. A well padded, hand fabricated sugar tong splint was applied to the right wrist. Patient tolerated procedue well. Postreduction x-rays interpreted by myself show there is some improvement although patient will need orthopedic follow-up. Orthopedic states that they could see her tomorrow. Patient given a prescription for Fowler for pain. Recommended to keep the wrist elevated. She is neurovascular intact after splint was applied. Patient discharged home in stable condition. Impression: 1. Mechanical fall 2. Right distal radius fracture Lab Data Attestation: I reviewed the patient's lab results. Discharge Plan Triage Chief Complaint: Upper Extremity Injury ED Provider: Hollis Nielsen Dx/Rx/DC Orders Instructions: ED Fracture, Wrist, General Prescriptions: New hydrocodone-acetaminophen 5-325 mg tablet 1 tab PO Q6H PRN (Reason: pain) 3 Days Qty: 12 0RF No Action levothyroxine [Synthroid] 112 mcg tablet See Rx Instructions PO DAILY Rx Instructions: 75 mcg PO daily; escitalopram oxalate [Lexapro] 10 mg tablet 10 mg PO DAILY zolpidem [Ambien] 5 mg tablet 5 mg PO QHS PRN (Reason: insomnia) Qty: 30 3RF Primary Care Provider: Yasmin Muhammad Referrals: Baltazar Gee DO [Med Staff - Active Staff] - 1 Day Yasmin Muhammad DO [Primary Care Provider] - Disposition Disposition: Home, Self Care
[2022-08-27] MEDS: Ondansetron 4 MG/2 ML Vial IV (11:33)
[2022-08-27] MEDS: Morphine 4 MG/ML Syringe IV (11:33)
--- NOTE | 2022-08-27 11:50 | RAD_ITS ---
HISTORY: pain. TECHNIQUE: XR Wrist Min 3 Views. COMPARISON: None. FINDINGS: BONES : Impacted intra-articular fracture of the distal radius with mild radial and dorsal displacement. Mild angulation, apex volar. Degenerative sclerosis, osteophytes, and joint space narrowing of the basal joint. JOINTS: No dislocation. Mild widening of the distal radioulnar joint. SOFT TISSUES: Soft tissue swelling of the wrist. RAD/Wrist min 3 Views IMPRESSION: Mildly displaced fracture of the right distal radius with mild widening of the distal radial ulnar joint from subluxation or effusion. Electronically Signed: Lisa Blair MD at 12:27 EST ,
[2022-08-27 14:06] VITALS: BP 141/80; PULSE 62; RESP 16; TEMP 36.6; O2SAT 100
[2022-08-27 14:16] VITALS: BP 143/81; BP 145/69; BP 157/81; PULSE 71; PULSE 72; PULSE 74; RESP 13; RESP 16; RESP 19; O2SAT 100; O2SAT 97; O2SAT 98
[2022-08-27 14:35] VITALS: BP 142/78; O2SAT 98
--- NOTE | 2022-08-27 14:35 | RAD_ITS ---
HISTORY: post reduction. TECHNIQUE: XR Wrist Min 3 Views. COMPARISON: 11:40. FINDINGS: BONES : Impacted fracture distal radius with decreased dorsal displacement and angulation. Residual radial displacement noted. JOINTS: No dislocation. Degenerative changes of the basal joint. SOFT TISSUES: Surrounding soft tissue swelling and overlying cast noted. RAD/Wrist min 3 Views IMPRESSION: Decrease displacement of right distal radial fracture post casting. Electronically Signed: Lisa Blair MD at 15:08 EST ,
[2022-08-27 14:40] VITALS: BP 134/78; PULSE 70; RESP 13; O2SAT 98
[2022-08-27] MEDS: Propofol 200 MG/20 ML Vial IV BOLUS (14:44)
[2022-08-27 14:45] VITALS: BP 138/84; PULSE 66; RESP 16; O2SAT 98
[2022-08-27] MEDS: HYDROcodone Bitartrate/Apap 5/325 Tablet PO (14:45)
== END 2022-08-27 15:39 | disposition home or self-care (01) ==
PROVIDERS: Emergency Provider Student in an Organized Health Care Education/Training Program; PCP Family Medicine; Visit Provider Student in an Organized Health Care Education/Training Program
DX: S52.501A Unspecified fracture of the lower end of right radius, initial encounter for closed fracture (principal); W00.9XXA Unspecified fall due to ice and snow, initial encounter; Y93.9 Activity, unspecified; Y99.9 Unspecified external cause status; Y92.89 Other specified places as the place of occurrence of the external cause; K21.9 Gastro-esophageal reflux disease without esophagitis; Z79.899 Other long term (current) drug therapy
CPT/HCPCS: 25605; 73110; 96374; 96375; 99152; 99285; A4216; J2405

== ENCOUNTER → 2022-08-29 | Outpatient (CLI) | payer MEDICARE, BC, SELFPAY ==
--- NOTE | 2022-08-29 12:55 | EKG12_ITS ---
Test Reason : PRE OP Blood Pressure : / mmHG Vent. Rate : 068 BPM Atrial Rate : 068 BPM P-R Int : 136 ms QRS Dur : 072 ms QT Int : 410 ms P-R-T Axes : -05 -11 003 degrees QTc Int : 435 ms Normal sinus rhythm Normal ECG Confirmed by DES GAMING, DENEEN ([id number]), web editor JONN RUFF ([id number]) on 08/30/2022 9:06:01 AM Referred By: Ray Sosa Confirmed By:DENEEN NUNES MD
[2022-08-29 13:38] LABS: Hematocrit 35.5 % (37-47); Mean Corp Hgb Conc 33.8 g/dL (32-36); Mean Corpuscular Hgb 30.5 pg (27.0-32.0); Mean Corpuscular Volume 90.3 fL (81-99); Mean Platelet Vol. 9.6 fl (6.2-12.0); Platelet Count 257 K/mm3 (150-450); RBC Distribution Width CV 13.1 % (11.6-14.6); RBC Distribution Width SD 43.3 fl (35.1-43.9); Red Blood Count 3.93 M/mm3 (4.2-5.4); White Blood Count 6.3 K/mm3 (4.4-11.0)
[2022-08-29 14:03] LABS: Anion Gap 9 (5-15); BUN 13 mg/dL (7-18); BUN/Creat Ratio 22.2 RATIO (10-20); Calcium,Total 8.9 mg/dL (8.5-10.1); Chloride 105 mmol/L (98-107); Creatinine, Serum 0.58 mg/dL (0.55-1.02); EST Glomerular Filtration Rate 109 mL/min (>60); Est Glom Filt Rate - Afr Amer 132 mL/min (>60); Glucose 90 mg/dL (74-106); Potassium 3.7 mmol/L (3.5-5.1); Sodium Level 138 mmol/L (136-145)
== END | disposition home or self-care (01) ==
LOC: PSN 12:34
PROVIDERS: PCP Family Medicine; Referring Provider Physician Assistant Surgical; Visit Provider Physician Assistant Surgical
DX: Z01.818 Encounter for other preprocedural examination (principal); Z01.810 Encounter for preprocedural cardiovascular examination
CPT/HCPCS: 36415; 80048; 85027; 93005

== ENCOUNTER → 2023-04-03 | Outpatient (CLI) | payer MEDICARE, BC, SELFPAY ==
[2023-04-03 11:06] LABS: Cholesterol 233 mg/dL (200); High Density Lipoprotein 84 mg/dL; Thyroid Stim Hormone (TSH) 1.74 uIU/mL (0.358-3.74); Triglycerides 134 mg/dL; Very Low Density Lipoprotein 27 mg/dL (5-40)
== END | disposition home or self-care (01) ==
LOC: PAVLAB 09:38
PROVIDERS: PCP Family Medicine; Referring Provider Obstetrics & Gynecology; Visit Provider Obstetrics & Gynecology
DX: Z13.220 Encounter for screening for lipoid disorders (principal); E03.9 Hypothyroidism, unspecified
CPT/HCPCS: 36415; 80061; 84443

== ENCOUNTER → 2023-05-05 | Outpatient (CLI) | payer MEDICARE, BC, SELFPAY | END | disposition home or self-care (01) | PROVIDERS: PCP Family Medicine; Visit Provider Physician Assistant | DX: R39.15 Urgency of urination (principal) | CPT/HCPCS: 87077; 87086; 87088; 87186 ==

== ENCOUNTER → 2023-06-11 | Outpatient (CLI) | payer MEDICARE, BC, SELFPAY ==
--- NOTE | 2023-06-11 13:05 | BI_ITS ---
MAMMOGRAPHY - BILATERAL SCREENING REASON FOR EXAM: Female, 68 years old. Routine annual screening examination. PERTINENT HISTORY: Non-contributory. TECHNIQUE: Digital bilateral breast kenrick (3D mammographic acquisition) in the CC and MLO projections. 2-D mediolateral oblique (MLO) and craniocaudad (CC) views of both breasts were obtained. CAD: Full Field Digital Mammography with Computer Added Detection was performed. COMPARISON: Comparison is made with prior study dated November 29, 2021 and August 14, 2019. FINDINGS: Breast Composition: The breasts are heterogeneously dense, which may obscure small masses. There is a 7.2 mm x 6 mm nodular density in the inferior medial portion of the right breast. Correlation with ultrasound is recommended. 2 patient clip markers are seen in the retrocrural region of the right breast. Stable small benign-appearing lateral axillary lymph nodes. No other significant abnormalities are identified. BI/SCRN MAMM (CAD)W/KENRICK BILAT IMPRESSION: 7.2 mm x 6 mm nodular density in the inferior medial portion of the right breast as described. Correlation with ultrasound is recommended. ASSESSMENT CATEGORY: BIRADS Category 0: Incomplete. Need additional imaging evaluation. A letter regarding these results will be sent to the patient by the facility within 30 days. Approximately 10% of breast cancers are not detected by mammography. A normal mammogram should not delay biopsy of a clinically suspicious abnormality. [id number] Electronically Signed: David Gomez MD at 13:57 EST ,
== END | disposition home or self-care (01) ==
LOC: OPBI 13:03
PROVIDERS: PCP Family Medicine; Referring Provider Obstetrics & Gynecology; Visit Provider Obstetrics & Gynecology
DX: Z12.31 Encounter for screening mammogram for malignant neoplasm of breast (principal)
CPT/HCPCS: 77063; 77067

== ENCOUNTER → 2023-06-15 | Outpatient (CLI) | payer MEDICARE, BC, SELFPAY ==
--- NOTE | 2023-06-15 14:18 | US_ITS ---
STUDY: ULTRASOUND BREAST - RIGHT REASON FOR EXAM: Female, 68 years old. Abnormal screening mammogram. TECHNIQUE: Axial and longitudinal images of the RIGHT breast were performed with a high resolution ultrasound transducer. # OF IMAGES: 28 COMPARISON: Comparison is made with prior mammogram dated June 11, 2023. FINDINGS: RIGHT Breast: The inferior medial aspect of the right breast was examined with ultrasound. There is a 9 mm x 8 mm x 3 mm well-defined hypoechoic nodule at the 4:00 position of the breast at 4 cm from the nipple. Biopsy recommended. US/Breast Limited Unilateral IMPRESSION: The mammographic abnormality corresponds to a 9 mm x 8 mm x 3 mm well-defined hypoechoic nodule at the 4:00 position of the breast at 4 cm from the nipple. Biopsy recommended. ASSESSMENT CATEGORY: BIRADS Category 4: Suspicious - Biopsy Should Be Considered. A letter regarding these results will be sent to the patient by the facility within 30 days. Electronically Signed: David Gomez MD at 8:48 EST ,
== END | disposition home or self-care (01) ==
LOC: OPUS 14:18
PROVIDERS: PCP Family Medicine; Referring Provider Obstetrics & Gynecology; Visit Provider Obstetrics & Gynecology
DX: R92.8 Other abnormal and inconclusive findings on diagnostic imaging of breast (principal)
CPT/HCPCS: 76642

== ENCOUNTER 2023-06-26 12:23 | Outpatient (CLI) | payer MEDICARE, BC, SELFPAY ==
--- NOTE | 2023-06-25 12:50 | BRBX_PTH ---
PATIENT: ZAID ZULETA LOC: [facility] U#:[id number] AGE/SX: 68/F ROOM: RE06/26/[address]: Dr. hCarlee Serna MD : [id number] BED: DIS: 06/26/2023 SPEC #: [id number] RECD: 06/26/23 13:41 STATUS: MONICA RERadha #: [id number] TOD: 06/25/23 12:[address]: Charlee Serna DEPT: SURGICAL PATHOLOGY RECD BY: Keisha Ordoñez ENTERED: 06/26/23 13:42 SP TYPE: BREAST BX OTHR DR: Yasmin Muhammad DO Tissues: Right breast, NOS Procedures: Surgery Specimen Level IV HEADER OPERATION: Right breast biopsy PRE-OP DIAGNOSIS: ? Lymph node vs benign nodule TISSUE SUBMITTED: Right breast 4 o'clock, 4.0 cm from nipple MICROSCOPIC DIAGNOSIS Right breast at 4 o'clock, needle core biopsy: Fibroadenoma. AM:patricia 06/27/2023 MICROSCOPIC DESCRIPTION Slides are reviewed. GROSS DESCRIPTION Received in fixative is one container labeled with the patient's name and designated right breast. The specimen consists of a single elongated fragment of becerra tissue measuring 1.6 x 0.2 x 0.1 cm. The specimen is totally submitted in one cassette. / AM:patricia 06/26/2023 TC:5 CPT: 12916
--- NOTE | 2023-06-26 12:25 | US_ITS ---
STUDY: ULTRASOUND BREAST - RIGHT REASON FOR EXAM: Female, 68 years old. Ultrasound-guided right breast biopsy TECHNIQUE: Axial and longitudinal images of the RIGHT breast were performed with a high resolution ultrasound transducer. # OF IMAGES: 14 COMPARISON: None. FINDINGS: RIGHT Breast: A previously identified hypoechoic 0.8 x 0.9 x 0.4 cm nodule at the 4:00 position, 4 cm from the nipple was identified. 2 separate core samples of this lesion were obtained under sonographic guidance with a Isomark core needle. Sample was sent to pathology for further evaluation. No immediate postoperative complications were identified. Post procedure films show satisfactory positioning of the postbiopsy clips. US/US Breast Biopsy 1st Lesion IMPRESSION: Successful sonographic guided right breast biopsy ASSESSMENT CATEGORY: BIRADS Category 0: Incomplete. Awaiting pathologic results Electronically Signed: Panfilo Pitts MD at 14:12 EST ,
--- NOTE | 2023-06-26 12:56 | PCM.OPRPT ---
Report of Operation Date of Procedure: 06/26/23 Pre-Operative Diagnosis: Right breast mass Post-Operative Diagnosis: Same Surgery/Procedure Performed:: Ultrasound-guided right breast biopsy Surgeon: Charlee Serna Type of Anesthesia: Local Specimen's removed: 1. Right breast biopsy 4:00 4 cm from the nipple Description of Procedure: Procedure: Right ultrasound-guided core biopsy Indications: 68 year-old female with hypoechoic nodule at 4:00 in the right breast 4 centimeters from the nipple. Risk benefits were discussed the patient and she elected to proceed with ultrasound guided core biopsy with clip placement Description of procedure: Patient was brought into the ultrasound room in the right breast was marked. A timeout was completed verifying correct patient, procedure, site, specially, prior to beginning procedure. The right breast was prepped and draped in usual sterile fashion and using local anesthesia was obtained with 1% lidocaine with epi. The lesion was located with the ultrasound. Small incision was made with 11 blade to introduced the BARD MaxCore through the skin. Under ultrasound guidance multiple core samples were obtained using then 14-gauge BARD MaxCore and sent in formalin for pathology. The Bard dual ultra ribbon clip was then deployed into the biopsy cavity under ultrasound guidance and a picture was taken. Upon completion procedure hemostasis was obtained and a Steri-Strip and OpSite were placed. Patient was then taken to the mammography suite for clip verification. The clip was verified. The patient tolerated the procedure well and was discharged from the breast imaging department good condition. Complications none
== END 2023-06-26 23:59 | disposition home or self-care (01) ==
LOC: BIRAD 12:25
PROVIDERS: PCP Family Medicine; Referring Provider Surgery; Visit Provider Surgery
DX: D24.1 Benign neoplasm of right breast (principal); N63.13 Unspecified lump in the right breast, lower outer quadrant
CPT/HCPCS: 19083; 88305

== ENCOUNTER → 2024-04-25 | Outpatient (CLI) | payer MEDICARE, BC, SELFPAY ==
[2024-04-25 17:43] LABS: Absolute Lymphocyte Count 2.49 X10^3/uL (0.83-4.51); Absolute Neutrophil Count 4.1 X10^3/uL (2.0-7.7); Basophil# 0.05 X10^3/uL; Basophil% 0.7 % (0-1); Eosinophil# 0.16 X10^3/uL; Eosinophils% 2.2 % (0-5); Hematocrit 40.7 % (37-47); Hemoglobin 13.4 g/dL (12.0-15.0); Lymphocyte # 2.49 X10^3/ul (0.83-4.51); Lymphocyte % 34.7 % (19-41); Mean Corp Hgb Conc 32.9 g/dL (32-36); Mean Corpuscular Hgb 30.8 pg (27.0-32.0); Mean Corpuscular Volume 93.6 fL (81-99); Mean Platelet Vol. 10.2 fl (6.2-12.0); Monocyte# 0.38 X10^3/uL; Monocyte% 5.3 % (0-10); NRBC Flagged by Analyzer 0 % (0-5); Neutrophil # 4.08 X10^3/uL (2.7-7.7); Neutrophil % 56.8 % (47-70); Platelet Count 316 K/mm3 (150-450); RBC Distribution Width CV 13.2 % (11.6-14.6); RBC Distribution Width SD 45.4 fl (35.1-43.9); Red Blood Count 4.35 M/mm3 (4.2-5.4); White Blood Count 7.2 K/mm3 (4.4-11.0)
[2024-04-25 17:57] LABS: Vitamin D,25 Hydroxy 19.5 ng/mL
[2024-04-25 18:01] LABS: AST(SGOT) 22 U/L (15-37); Alanine Aminotransfer ALT/SGPT 21 U/L (13-56); Albumin, Serum 3.8 g/dL (3.2-5.0); Alkaline Phosphatase 69 U/L (45-117); Anion Gap 7 (5-15); BUN 16 mg/dL (7-18); BUN/Creat Ratio 18.6 RATIO (10-20); Calcium,Total 9.1 mg/dL (8.5-10.1); Chloride 106 mmol/L (98-107); Cholesterol 249 mg/dL (200); Creatinine, Serum 0.86 mg/dL (0.55-1.02); EST Glomerular Filtration Rate 69 mL/min (>60); Est Glom Filt Rate - Afr Amer 84 mL/min (>60); Globulin 3.9 g/dL (2.2-4.2); Glucose 109 mg/dL (74-106); High Density Lipoprotein 90 mg/dL; Potassium 4.1 mmol/L (3.5-5.1); Protein, Total 7.7 g/dL (6.4-8.2); Sodium Level 139 mmol/L (136-145); Triglycerides 304 mg/dL; Very Low Density Lipoprotein 61 mg/dL (5-40)
== END | disposition home or self-care (01) ==
LOC: MFPLAB 15:33
PROVIDERS: PCP Family Medicine; Visit Provider Family Medicine
DX: M25.511 Pain in right shoulder (principal); E78.5 Hyperlipidemia, unspecified; E03.9 Hypothyroidism, unspecified
CPT/HCPCS: 36415; 80053; 80061; 82306; 84443; 85025

== ENCOUNTER 2024-05-29 17:18 | Observation (INO) | payer MEDICARE, BC, SELFPAY ==
[2024-05-29] VITALS (10 sets, daily range): BP systolic 143–174; BP diastolic 77–102; PULSE 71–85; RESP 16–23; TEMP 36.6; O2SAT 94–100; BMI 29.4; BMI 29.2
--- OUTSIDE RECORDS SUMMARY | 2024-05-29 19:55 | XMS RPT_ITS | CCD ---
Author Organization [facility] Care Team Providers Care Senior Quality Assurance Specialist Name Role Phone Rand Melgar MD Unavailable [phone] KEAGAN Schroeder RN, Mague Li Unavailable UnavailRand Eubanks MD Unavailable [phone] Boo ASHFORD, Zeinab Benton Unavailable Maddie Neil Unavailable Unavailable ZHANG MUHAMMAD DO Primary Care Physician [phone] TAYLER PIERRE, DR. HOYOS Primary Care Unavaila MARIN Gallegos DO Attending Unavailable ZHANG MUHAMMAD DO Primary Care Unavailable MARIN DOSS DO Attending Unavailable Sascha Hinojosa MD Primary Care Provider Zhang Muhammad DO Primary Care Provider [phone] DAVID SAMAYOA Referring Unavailable ZHANG MUHAMMAD Primary Care Unavailable ZHANG MUHAMMAD Primary Care Unavailable DAVID SAMAYOA JR Referring Unavailable ALMA ROSA RIVREA Attending Unavailable ZHANG MUHAMMAD Primary Care Unavailable DAVID SAMAYOA JR Referring Unavailable ALMA ROSA RIVERA Attending Unavailable ZABRINA ROJAS Attending Unavailable ZHANG MUHAMMAD Primary Care Unavailable Allergies Allergy Classification Reported Allergen(s) Allergy Type Date of Onset Reaction(s) Facility (3 sources) penicillin v drug allergy 04-12-20 [facility] (1 source) Penicillin; Translations: [penicillin] Drug Allergy Anaphylactoid reaction (disorder) [facility] (7 sources) Penicillins; Translations: [PENICILLINS] Propensity to adverse reactions 05-18-20 [facility] Work Phone: Medications Current Medications Medication Drug Class(es) Dates Sig (Normalized) Sig (Original) acetaminophen 325 mg / HYDROcodone bitartrate 5 mg oral tablet (1 source) Opioid Agonist Start: 08-29-2022 acetaminophen-hydro codone 325 mg-5 mg oral tablet Dose = 1 tab(s), Oral, q6h, PRN for pain, May take 1-2 tablets / dose, # 12 tab(s), 0 Refill(s) Start Date: 08/29/22 Status: Ordered doxycycline hyclate 100 mg oral tablet (1 source) Tetracycline-cla ss Drug Start: 08-29-2022 take 1 tablet by mouth twice daily doxycycline hyclate 100 mg oral tablet TAKE 1 TABLET BY MOUTH TWICE A DAY FOR 7 DAYS Start Date: 08/29/22 Status: Ordered escitalopram 10 mg oral tablet (5 sources) Serotonin Reuptake Inhibitor Start: 08-29-2022 escitalopram 10 mg oral tablet Dose : 10 mg = 1 tab(s), Oral, Daily, 0 Refill(s) Start Date: 08/29/22 Status: Ordered Comment on above: Take 10 mg by mouth once daily. levothyroxine sodium 0.075 mg oral tablet (20 sources) l-Thyroxine Start: 08-29-2022 levothyroxine 75 mcg (0.075 mg) oral tablet Dose : 75 mcg = 1 tab(s), Oral, qDayAC, 0 Refill(s) Start Date: 08/29/22 Status: Ordered Start: 03-29-2017 take 1 tablet by james th once daily SYNTHROID 112 MCG TABS One tablet by mouth daily LEVOTHYROXINE SODIUM [id number] Rand Melgar MD Start: 03-29-2017 SYNTHROID 112 MCG TABS LEVOTHYROXINE SODIUM [id number] Maddie Neil Start: 03-12-2017 take 1 tablet by james th once daily levothyroxine (SYNTHROID) 112 mcg tablet TAKE 1 TABLET BY MOUTH EVERY DAY 30 tablet 3 04/13/2017 Active Start: 03-12-2017 take 1 tablet by james th once daily SYNTHROID 112 MCG TABS One tablet by mouth daily LEVOTHYROXINE SODIUM [id number] Zeinab Haddad [employer] Comment on above: Take 1 tablet by james th once daily. TAKE 1 TABLET BY JAMES TH EVERY DAY Multivitamin preparation (1 source) Start: 08-29-2022 take 1 tablet by mouth once daily Multivitamin Dose = 1 tab(s), Oral, Daily, 0 Refill(s) Start Date: 08/29/22 Status: Ordered Completed/Discontinued Medications Medication Drug Class(es) Dates Sig (Normalized) Sig (Original) acetaminophen 325 mg / oxyCODONE hydrochloride 5 mg oral tablet (5 sources) Opioid Agonist Start: 12-11-2014 take 1-2 tablets by mouth every four hours as needed oxyCODONE-acetamin ophen (PERCOCET) 5-325 mg tablet Take 1-2 tablets by mouth every 4 hours as needed. 30 tablet 0 12/11/2014 Active Comment on above: Take 1-2 tablets by mouth every 4 hours as needed. azithromycin 250 mg oral tablet (5 sources) Macrolide Antimicrobial Start: 12-24-2014 azithromycin (ZITHROMAX) 250 mg tablet Take two pills on the first day then one pill x 4 days 6 tablet 0 12/24/2014 Active Comment on above: Take two pills on th e first day then one pill x 4 days Calcium Carbonate / vitamin D3 (5 sources) CALCIUM CARBONATE/VITAMIN D3 (VITAMIN D-3 ORAL) Take by mouth. 0 Active Comment on above: Take by mouth. diphenhydrAMINE citrate 38 mg / ibuprofen 200 mg oral tablet (5 sources) Histamine-1 Receptor Antagonist, Nonsteroidal Anti-inflammatory Drug Ibuprofen-diphenhy drAMINE 200-38 mg tab Indications: Routine gynecological examination , Screening for diabetes mellitus Take by mouth as needed. 0 Active Comment on above: Take by mouth as nee ded. ECHINACEA HERB ORAL (5 sources) ECHINACEA HERB ORAL Take by mouth. 0 Active Comment on above: Take by mouth. LORazepam 0.5 mg oral tablet (8 sources) Benzodiazepine Start: 01-09-2017 take 1 tablet by mouth every eight hours as needed LORazepam (ATIVAN) 0.5 mg tab Take 1 tablet by mouth three times daily as needed. 10 tablet 0 01/09/2017 Active Comment on above: Take 1 tablet by james th three times daily as needed. Magnesium (5 sources) MAGNESIUM ORAL Take by mouth. 0 Active Comment on above: Take by mouth. Multivitamin capsule (1 source) take 1 capsule by mouth once daily Multivitamin capsule Take 1 capsule by mouth once daily. 0 Active Comment on above: Take 1 capsule by mo uth once daily. Drug Treatment Unknown - unknown (1 source) No information available. VITAMIN B COMPLEX ORAL (5 sources) VITAMIN B COMPLE X ORAL Indications: Routine gynecological examination , Screening for diabetes mellitus Take by mouth. 0 Active Comment on above: Take by mouth. zolpidem tartrate 5 mg oral tablet (8 sources) gamma-Aminobutyric Acid-ergic Agonist Start: 03-29-2017 ZOLPIDEM TARTRATE 5 MG TABS nightly as needed ZOLPIDEM TARTRATE [id number] Rand Melgar MD Start: 10-12-2016 take 1 tablet by james th every twenty-four hours as needed zolpidem (AMBIEN) 5 mg tablet Take 1 tablet by mouth at bedtime as needed. FOR INSOMNIA 30 tablet 0 10/12/2016 Active Comment on above: Take 1 tablet by james th at bedtime as needed. 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] Episodic Other nervous system disorders (5 sources) Facial nerve sensory disorder; Translations: [Other disorders of facial nerve] Onset: 12-12-2022 Episodic Other nervous system disorders (1 source) Impaired cognition; Translations: [Other symptoms and signs involving cognitive functions and awareness] Episodic Other nervous system disorders (1 source) Torres's palsy; 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] Onset: 12-14-2022 Episodic Other nervous system disorders (1 source) Other symptoms and signs involving cognitive functions and awareness; Translations: [Cognitive impairment] Onset: 12-14-2022 Episodic Thyroid disorders (5 sources) Acquired hypothyroidism; Translations: [Hypothyroidism, unspecified] Onset: 04-17-2006 11-03-2015 Chronic Unclassified (3 sources) Gynecologic examination ; Translations: [Encounter for gynecological examination (general) (routine) without abnormal findings] Onset: 2017 2017 Unclassified (3 sources) Screening mammography ; Translations: [Encounter for screening mammogram for malignant neoplasm of breast] Onset: 2017 2017 Unclassified (4 sources) Thyroid disorder screening ; Translations: [Encounter for screening for other suspected endocrine disorder] Onset: 02-26-2017 02-27-2017 Unclassified (4 sources) Procedure carried out on subject; Translations: [Encounter for screening for lipoid disorders] Onset: 02-26-2017 02-27-2017 Past or Other Problems Problem Classification Problem Date Documented Date Episodic/Chronic Cancer of cervix (5 sources) Cervical intraepithelial neoplasia grade III with severe dysplasia; Translations: [Carcinoma in situ of cervix, unspecified] Onset: 12-21-2014 12-21-2014 Episodic Other connective tissue disease (1 source) Facial weakness; Translations: [Facial weakness] Onset: 12-12-2022 Episodic Other nervous system disorders (1 source) Other disorders of facial nerve; Translations: [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] Onset: 12-12-2022 Episodic Unclassified (4 sources) Encounter for screening for lipoid disorders; Translations: [Encounter for screening for lipoid disorders] Onset: 02-26-2017 02-27-2017 Episodic Results Test Name Value Interpretation Reference Range Facility CNTHERAPYon 03-29-2023 CNTHERAPY OT/PT/Speech Visit (SPTBR) JENNIFER RICHARD ([id number]) 1955 F NFR Date Time Provider Department 03/29/23 1:00 PM ALMA ROSA RIVERA SPT[facility] Date Time Provider Department Center 03/29/2023 1:00 PM [id number], WENDY SPTBR [facility] Reason for Visit: PT Progress Note [1596] PT Discharge [752] Primary Visit Diagnosis: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 [G51.8] Other Visit Diagnosis:Facial weakness [R29.810] Allergies As of Date: 03/29/2023 Noted Allergy Reaction PENICILLINS 05/18/2006 Comments: respiratory Date Reviewed: 12/19/2022 Reviewed by: Strait, Frannie, OCCA - Fully Assessed Prescriptions as of 11/16/2023 - Multivitamin capsule Take 1 capsule by mouth once daily. - escitalopram oxalate (LEXAPRO) 10 mg tablet Take 10 mg by mouth once daily. - levothyroxine (SYNTHROID) 112 mcg tablet TAKE 1 TABLET BY MOUTH EVERY DAY - levothyroxine (SYNTHROID) 112 mcg tablet Take 1 tablet by mouth once daily. - LORazepam (ATIVAN) 0.5 mg tab Take 1 tablet by mouth three times daily as needed. - zolpidem (AMBIEN) 5 mg tablet Take 1 tablet by mouth at bedtime as needed. FOR INSOMNIA - CALCIUM CARBONATE/VITAMIN D3 (VITAMIN D-3 ORAL) Take by mouth. - MAGNESIUM ORAL Take by mouth. - ECHINACEA HERB ORAL Take by mouth. - azithromycin (ZITHROMAX) 250 mg tablet Take two pills on the first day then one pill x 4 days - oxyCODONE-acetaminoph en (PERCOCET) 5-325 mg tablet Take 1-2 tablets by mouth every 4 hours as needed. - Ibuprofen-diphenhydrA MINE 200-38 mg tab Take by mouth as needed. - VITAMIN B COMPLEX ORAL Take by mouth. Normal [facility] CNOVon 12-19-2022 CNOV Office Visit (BHASKAR ) JENNIFER RICHARD ([id number]) 1955 F NFR Date Time Provider Department 12/19/22 11:00 AM ZABRINA ROJAS During your visit today, we recorded the following information about you: Pulse Respiration Blood pressure Weight 82/minute 16/minute 128/88 74.6 kg Zabrina Rojas PA-C 12/21/2022 8:10 AM Signed [facility] Name: Jennifer Richard Age: [age] year old Gender: female Primary Care Provider: Zhang Muhammad DO Assessment/Plan: The encounter diagnosis was 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. 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 She was initially seen by Dr. Samayoa for the same reason on 10/16/2022. At last visit, an MRI of the brain was done without contrast to assess for any obvious areas of damage. MRI of the brain was unremarkable. Interestingly, quantitative was done although this was not originally ordered. Quantitative analysis of the hippocampus was 68th percentile. Patient is participating in physical therapy with some benefit. Patient's main concern today is determining the prognosis. She would like to know whether the 7th cranial nerve is irreversibly damaged or if it will recover. We did discuss that an EMG would better quantify the extent of damage and confirm localization of the damage. However, this would not necessarily change our treatment plan which is to continue with physical therapy. Patient would like to hold off on EMG for now and will continue with physical therapy. She has an upcoming trip planned to [place] for several months. We will reconsider need for EMG at follow-up visit with Dr. Samayoa. We also discussed the possibility of a referral to plastic surgeon, Dr. Moon, for any recommendations regarding surgical interventions. Patient also would prefer to hold off on this. Plan: 1) Continue physical therapy for now 2) Offer for EMG of the facial nerve and referral to Dr. Moon (in plastics). Patient declined for now. Will reevaluate after she returns from [place] at follow up with Dr. Samayoa. Will reconsider at that time pending course. Orders Placed This Encounter Multivitamin capsule Sig: Take 1 capsule by mouth once daily. No follow-ups on file. Chart, labs,and relevant images reviewed. 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 She was initially seen by Dr. Samayoa for the same reason on 10/16/2022. At last visit, an MRI of the brain was done without contrast to assess for any obvious areas of damage. MRI of the brain was unremarkable. Interestingly, quantitative was done although this was not originally ordered. Quantitative analysis of the hippocampus was 68th percentile. Patient is participating in physical therapy with some benefit. She is still having some difficulty with raising her left eyebrow, but she reports that the physical therapist has seen some improvement. Patient is 6-7 months out from the original incident. Patient does not have any new symptoms. No unilateral hearing loss or imbalance. Patient's main concern today is determining the prognosis. She would like to know whether the 7th cranial nerve is irreversibly damaged or if it will recover. 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 escitalopram oxalate (LEXAPRO) 10 mg tablet Take 10 mg by mouth once daily. levothyroxine (SYNTHROID) 112 mcg tablet Take 1 tablet by mouth once daily. (Patient taking differently: Take 75 mcg by mouth once daily.) zolpidem (AMBIEN) 5 mg tablet Take 1 tablet by mouth at bedtime as needed. FOR INSOMNIA MAGNESIUM ORAL Take by mouth. Ibuprofen-diphenhydrA MINE 200-38 mg tab Take by mouth as needed. levothyroxine (SYNTHROID) 112 mcg tablet TAKE 1 TABLET BY MOUTH EVERY DAY (Patient not taking: No sig reported) LORazepam (ATIVAN) 0.5 mg tab Take 1 tablet by mouth three times daily as needed. (Patient not taking: Reported on 10/16/2022) CALCIUM CARBONATE/VITAMIN D3 (VITAMIN D-3 ORAL) Take by mouth. (Patient not taking: Reported on 10/16/2022) ECHINACEA HERB ORAL Take by mouth. (Patient not taking: Reported on 12/19/2022) azithromycin (ZITHROMAX) 250 mg (more content not included)... Normal [facility] 12-14-2022 [facility] HNO ID: [id number] Author: Robina Shanta, RT(R) Service: Radiology Author Type: Technologist Type: Allied Health Filed: 12/14/2022 4:22 PM Note Text: Radiology Service Progress Note PATIENT NAME: Jennifer Richard DATE OF SERVICE: December 14, 2022 TIME: 4:21 PM PATIENT IDENTITY VERIFICATION COMPLETED USING TWO (2) IDENTIFIERS: Name and Date of confirmed by patient verbally and Name and Date of confirmed by identification band. FALL SCREENING: Has the patient had 2 falls in the last year or 1 fall with injury or currently using an Ambulatory Assistive Device (Walker, Cane, Wheelchair, Crutches, etc.)? No PATIENT GENDER DATA: Female. status: : No status: NO. PATIENT RELEVANT IMPLANT DATA REVIEWED: Yes RADIOLOGY DEPARTMENT: MR; Exam(s) Completed: Head: adni concussion post processing 3 d PERIPHERAL IV DATA: Not applicable SIGNED BY: RT Adriana(R) December 14, 2022 4:21 PM [facility] MRI 3D POST PROCESSINGon MRI 3D POST PROCESSING * * *Final Report* * * DATE OF EXAM: Dec 14 2022 4:24PM [facility] 0280 - MRI 3D POST PROCESSING / PROCEDURE REASON: Cognitive impairment * * * * Physician Interpretation * * * * EXAMINATION: MRI BRAIN WO IVCON, MRI 3D POST PROCESSING CLINICAL HISTORY: Cognitive impairment. Patient with trauma to L forehead/temp. Since has weakness of muscles associate d with temp branch CN7. Eval for injury to n, evidence of compression etiology or other. TECHNIQUE: Axial JACINTO FLAIR, JACINTO T2, diffusion and susceptibility weighted imaging without contrast, using the ADNI dementia protocol and 3-D post-processing using the NeuroQuant software at an independent workstation with concurrent physician supervision and images were created, reviewed and archived. CISS sequence of the posterior fossa. MQ: [id number] COMPARISON: None RESULT: QUALITATIVE: Acute Intracranial Process: None. Chronic Intracranial Process: Minimal chronic white matter microangiopathic changes. Age related white matter changes (ARWMC) rating: White matter lesions: 1 Basal ganglia lesions: 0 Prior intracranial hemorrhage: Parenchymal microhemorrhages: 0 Other (siderosis/macrohemor rhages (>10mm): Not Applicable Amyloid Related Imaging Abnormalities: ARIA-E: N/A ARIA-H Microhemorrhage: N/A ARIA-H Siderosis: N/A Qualitative brain and hippocampal volume loss for age: Cortex: Mild and symmetric White Matter: Mild and symmetric Hippocampi: Mild and Symmetric Ventricles: Commensurate with volume loss. Brain Parenchymal Signal and Morphology: The brain parenchyma is otherwise within normal limits of signal and morphology. There is no evidence of an intracranial mass or extraaxial fluid collection. Other Significant Findings: No lesions involving the cerebellopontine cisterns or internal auditory canals. The seventh and eighth cisternal and intracanalicular cranial nerve divisions appear within normal limits. Symmetric signal in the inner ear structures. QUANTITATIVE: Exam Quality: Good for volumetric analysis. Segmentation: Negligible mismapping by visual inspection. Quantitative Data: Total Hippocampal Volume: Percentile for Age: 60 Asymmetry Index: -5.74 Inferior Lateral Vent Volume: Percentile for age: 84 Asymmetry Index: -16.2 Superior Lateral Vent Volume: Percentile for age: 75 Asymmetry Index: -24.12 Temporal Lobe Volume: Temporal Lobe Percentile for Age: 98 Temporal Lobe Asymmetry Index: -0.82 Frontal Lobe Volume: Frontal Lobe Percentile for Age: 87 Frontal Lobe Asymmetry Index: -1.94 Parietal Lobe Volume: Parietal Lobe Percentile for Age: 59 Occipital Lobe Volume: Occipital Lobe Percentile for Age: 9 Whole Brain Volume Brain Percentile for Age: 51 Concordance between qualitative and quantitative hippocampal volume assessment: Concordant Change in brain volumes: No previous volumetric study for comparison Brain Volume Change: N/A Hippocampal Volume Change: N/A Superior Lateral Ventricle Volume Change: N/A Inferior Lateral Ventricle Volume Change: N/A Mean hippocampal volume loss among normal elderly: 0.7% per year, (-0.3 to 1.7; Goyo 2008; also Choco 2010). IMPRESSION: * No evidence of an acute intracranial process or intracranial mass. No evidence of lesion involving the cerebellopontine angle cistern or internal auditory canal. * Mild generalized volume loss. * Hippocampal volumes at the 68th percentile when compared to age matched normal controls by quantitative analysis. * Minimal white matter disease which is nonspecific but likely reflective of chronic microvascular ischemia. * No evidence of parenchymal microhemorrhages by MRI. REFERENCES: White Matter Lesions: 0 = No lesions, including symmetrical, well-defined caps or bands 1 = Focal Lesions 2 = Beginning of [place] 3 = Diffuse Involvement of Entire Region Basal Ganglia Lesions: 0 = No Lesions 1 = 1 Focal Lesion (>5mm) 2 = >1 Focal Lesion (>5mm) 3 = Confluent Lesions Choco Zaragoza et al. The clinical use of structural MRI in Alzheimer disease. Nature Reviews Neurology 6;67 (2010). Goyo et al. Validation of a fully automated 3D hippocampal segmentation method using subjects with Alzheimer's disease mild cognitive impairment, and elderly controls. Neuroimage 43;59 (2008). Luis A et al. A New Rating Scale for Age-Related White Matter Changes Applicable to MRI and CT. Stroke. 32:1318 (2001). * Asymmetry index defined as difference between left and right volumes divided by mean or [(L-R/Mean) x 100] (%). Age-matched reference charts measure total hippocampal volume (% of intracranial volume). See results from the analysis charts for details. Pump Runner: BOLA Transcribe Date/Time: Dec 14 2022 10:08P Dictated by : CINDY BARRAZA DO This examination was interpreted and the report reviewed and electronically signed by: CINDY BARRAZA DO on Dec 14 2022 (more content not included)... Normal [facility] MRI BRAIN WO IVCONon 023 MRI BRAIN WO IVCON * * *Final Report* * * DATE OF EXAM: Dec 14 2022 4:24PM [facility] [id number] - MRI BRAIN WO IVCON / PROCEDURE REASON: Torres's palsy * * * * Physician Interpretation * * * * EXAMINATION: MRI BRAIN WO IVCON, MRI 3D POST PROCESSING CLINICAL HISTORY: Cognitive impairment. Patient with trauma to L forehead/temp. Since has weakness of muscles associate d with temp branch CN7. Eval for injury to n, evidence of compression etiology or other. TECHNIQUE: Axial JACINTO FLAIR, JACINTO T2, diffusion and susceptibility weighted imaging without contrast, using the ADNI dementia protocol and 3-D post-processing using the NeuroQuant software at an independent workstation with concurrent physician supervision and images were created, reviewed and archived. CISS sequence of the posterior fossa. MQ: [id number] COMPARISON: None RESULT: QUALITATIVE: Acute Intracranial Process: None. Chronic Intracranial Process: Minimal chronic white matter microangiopathic changes. Age related white matter changes (ARWMC) rating: White matter lesions: 1 Basal ganglia lesions: 0 Prior intracranial hemorrhage: Parenchymal microhemorrhages: 0 Other (siderosis/macrohemor rhages (>10mm): Not Applicable Amyloid Related Imaging Abnormalities: ARIA-E: N/A ARIA-H Microhemorrhage: N/A ARIA-H Siderosis: N/A Qualitative brain and hippocampal volume loss for age: Cortex: Mild and symmetric White Matter: Mild and symmetric Hippocampi: Mild and Symmetric Ventricles: Commensurate with volume loss. Brain Parenchymal Signal and Morphology: The brain parenchyma is otherwise within normal limits of signal and morphology. There is no evidence of an intracranial mass or extraaxial fluid collection. Other Significant Findings: No lesions involving the cerebellopontine cisterns or internal auditory canals. The seventh and eighth cisternal and intracanalicular cranial nerve divisions appear within normal limits. Symmetric signal in the inner ear structures. QUANTITATIVE: Exam Quality: Good for volumetric analysis. Segmentation: Negligible mismapping by visual inspection. Quantitative Data: Total Hippocampal Volume: Percentile for Age: 60 Asymmetry Index: -5.74 Inferior Lateral Vent Volume: Percentile for age: 84 Asymmetry Index: -16.2 Superior Lateral Vent Volume: Percentile for age: 75 Asymmetry Index: -24.12 Temporal Lobe Volume: Temporal Lobe Percentile for Age: 98 Temporal Lobe Asymmetry Index: -0.82 Frontal Lobe Volume: Frontal Lobe Percentile for Age: 87 Frontal Lobe Asymmetry Index: -1.94 Parietal Lobe Volume: Parietal Lobe Percentile for Age: 59 Occipital Lobe Volume: Occipital Lobe Percentile for Age: 9 Whole Brain Volume Brain Percentile for Age: 51 Concordance between qualitative and quantitative hippocampal volume assessment: Concordant Change in brain volumes: No previous volumetric study for comparison Brain Volume Change: N/A Hippocampal Volume Change: N/A Superior Lateral Ventricle Volume Change: N/A Inferior Lateral Ventricle Volume Change: N/A Mean hippocampal volume loss among normal elderly: 0.7% per year, (-0.3 to 1.7; Goyo 2008; also Choco 2010). IMPRESSION: * No evidence of an acute intracranial process or intracranial mass. No evidence of lesion involving the cerebellopontine angle cistern or internal auditory canal. * Mild generalized volume loss. * Hippocampal volumes at the 68th percentile when compared to age matched normal controls by quantitative analysis. * Minimal white matter disease which is nonspecific but likely reflective of chronic microvascular ischemia. * No evidence of parenchymal microhemorrhages by MRI. REFERENCES: White Matter Lesions: 0 = No lesions, including symmetrical, well-defined caps or bands 1 = Focal Lesions 2 = Beginning of [place] 3 = Diffuse Involvement of Entire Region Basal Ganglia Lesions: 0 = No Lesions 1 = 1 Focal Lesion (>5mm) 2 = >1 Focal Lesion (>5mm) 3 = Confluent Lesions Choco Zaragoza et al. The clinical use of structural MRI in Alzheimer disease. Nature Reviews Neurology 6;67 (2010). Goyo et al. Validation of a fully automated 3D hippocampal segmentation method using subjects with Alzheimer's disease mild cognitive impairment, and elderly controls. Neuroimage 43;59 (2008). Luis A et al. A New Rating Scale for Age-Related White Matter Changes Applicable to MRI and CT. Stroke. 32:1318 (2001). * Asymmetry index defined as difference between left and right volumes divided by mean or [(L-R/Mean) x 100] (%). Age-matched reference charts measure total hippocampal volume (% of intracranial volume). See results from the analysis charts for details. Pump Runner: PSCMila Transcribe Date/Time: Dec 14 2022 10:08P Dictated by : CINDY BARRAZA DO This examination was interpreted and the report reviewed and electronically signed by: CINDY BARRAZA DO on Dec 14 2022 10:13PM EST (more content not included)... Normal [facility] CNTHERAPYon 12-12-2022 CNTHERAPY OT/PT/Speech Visit (SPTBR) JENNIFER RICHARD ([id number]) 1955 F NFR Date Time Provider Department 12/12/22 3:00 PM ALMA ROSA RIVERA SPTBR Date Time Provider Department Center 12/12/2022 3:00 PM [id number], WENDY SPTBR KUSUM GAYLE Reason for Visit: PT Eval [747] Visit Diagnoses: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 [G51.8] Facial weakness [R29.810] Allergies As of Date: 12/12/2022 Noted Allergy Reaction PENICILLINS 05/18/2006 Comments: respiratory Date Reviewed: 10/16/2022 Reviewed by: David Samayoa Jr., MD - Fully Assessed Prescriptions as of 12/12/2022 - escitalopram oxalate (LEXAPRO) 10 mg tablet Take 10 mg by mouth once daily. - levothyroxine (SYNTHROID) 112 mcg tablet TAKE 1 TABLET BY MOUTH EVERY DAY - levothyroxine (SYNTHROID) 112 mcg tablet Take 1 tablet by mouth once daily. - LORazepam (ATIVAN) 0.5 mg tab Take 1 tablet by mouth three times daily as needed. - zolpidem (AMBIEN) 5 mg tablet Take 1 tablet by mouth at bedtime as needed. FOR INSOMNIA - CALCIUM CARBONATE/VITAMIN D3 (VITAMIN D-3 ORAL) Take by mouth. - MAGNESIUM ORAL Take by mouth. - ECHINACEA HERB ORAL Take by mouth. - azithromycin (ZITHROMAX) 250 mg tablet Take two pills on the first day then one pill x 4 days - oxyCODONE-acetaminoph en (PERCOCET) 5-325 mg tablet Take 1-2 tablets by mouth every 4 hours as needed. - Ibuprofen-diphenhydrA MINE 200-38 mg tab Take by mouth as needed. - VITAMIN B COMPLEX ORAL Take by mouth. [facility] AMINAN Telephone (CAROL) JENNIFER RICHARD ([id number]) 1955 F NFR Date Time Provider Department 11/14/22 DAVID SAMAYOA JR During your visit today, we recorded the following information about you: Allergies As of Date: 11/14/2022 Noted Allergy Reaction PENICILLINS 05/18/2006 Comments: respiratory Date Reviewed: 10/16/2022 Reviewed by: David Samayoa Jr., MD - Fully Assessed Reason for Visit: Orders [681] Primary Visit Diagnosis: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 [G51.8] Other Visit Diagnosis:Facial weakness [R29.810] Order(s):CONSULT TO PHYSICAL THERAPY [9127] Order #: [id number]: 1 FUTURE Prescriptions as of 11/14/2022 - escitalopram oxalate (LEXAPRO) 10 mg tablet Take 10 mg by mouth once daily. - levothyroxine (SYNTHROID) 112 mcg tablet TAKE 1 TABLET BY MOUTH EVERY DAY - levothyroxine (SYNTHROID) 112 mcg tablet Take 1 tablet by mouth once daily. - LORazepam (ATIVAN) 0.5 mg tab Take 1 tablet by mouth three times daily as needed. - zolpidem (AMBIEN) 5 mg tablet Take 1 tablet by mouth at bedtime as needed. FOR INSOMNIA - CALCIUM CARBONATE/VITAMIN D3 (VITAMIN D-3 ORAL) Take by mouth. - MAGNESIUM ORAL Take by mouth. - ECHINACEA HERB ORAL Take by mouth. - azithromycin (ZITHROMAX) 250 mg tablet Take two pills on the first day then one pill x 4 days - oxyCODONE-acetaminoph en (PERCOCET) 5-325 mg tablet Take 1-2 tablets by mouth every 4 hours as needed. - Ibuprofen-diphenhydrA MINE 200-38 mg tab Take by mouth as needed. - VITAMIN B COMPLEX ORAL Take by mouth. 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 Normal [facility] ([place]) Op Noteon 08-25-2021 Op Note PATIENT: JENNIFER RICHARD ADMISSION DATE: 08/25/2021 SURGERY DATE: 08/25/2021 DATE OF : 1955 AGE: 66 ADMITTING PHYSICIAN: Olivier Ryan MD ATTENDING PHYSICIAN: Olivier Ryan MD DICTATING PHYSICIAN: Olivier Ryan MD OPERATIVE RECORD Procedure: 1. INCISIONAL BIOPSY WITH FROZEN SECTION ADDING APPROXIMATELY 20 MINUTES OF WAITING TIME FOR THE PATHOLOGY. 2. MARGINAL RESECTION OF THE radial nerve MASS. Preoperative Diagnosis: Left radial nerve tumor. 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 Anesthesia: General. Specimen: Both frozen and permanent sections were obtained. Findings: The patient is a 66-year-old female who presented with pain over the radial nerve after it pierced the posterior septum. The mass was about 3 cm in size, causing significant amount of symptoms and she desired surgical intervention. We did a biopsy to make sure it was not a malignant and dissected around where the nerve fibers would be. Pathology came back benign. Therefore, we did intralesional resection. The mass did not come out as one piece. We had to split the sheath of the radial nerve and expressed the tumor using a septal elevator to express the majority of the tumor. The nerve fibers were left intact. The nerve was palpated proximally and distally. There was some bleeding from the peripheral rim. Therefore, we did inflate the tourniquet and it is about a small vein overlying the capsule which we used electrocautery without doing any damage to the radial nerve. Shared informed decision making, site signage time-out and perioperative antibiotics were all utilized. Description of Procedure: The patient was brought to operative room in stable condition under general anesthesia and placed in the supine position. We made a longitudinal incision over the palpable mass, dissected down through skin, subcutaneous tissue and the fascia was incised longitudinally. The mass was identified and dissection was done using Littler scissors to make sure we did not do any damage to the nerve. Once we found the nerve, we could easily palpate the tumor. We were able to see some nerve fibers mostly posterior and lateral. I took a 15 blade and incised the capsule very gently in the longitudinal line without where the nerves were not present. This biopsy was then taken of this material and sent for frozen section. Wound was packed. There was some bleeding noted as we did not have a tourniquet at that time. Compression was done. The specimen was inspected by pathology and read as no malignant tumor identified. Therefore, we came back to the wound. I did put a sterile tourniquet on it. We were able to get hemostasis a small vein overlying the tumor. Extending the incision I made to do the biopsy proximally and distally taking care not to do any damage to the nerve, we exposed the mass. A septal elevator was placed. I could not get the mass out as one piece and we took a fair amount of the neural tissue from this and the nerve fibers were intact at the conclusion. Hemostasis was obtained. Then the tourniquet was let down. Layer closure of 2-0 Vicryl and skin closed with subcuticular stitch. Dry sterile dressing was applied. The patient tolerated the procedure well. No apparent complications. The patient understood that there is a risk of neural damage secondary to the radial nerve neurapraxia. Diskriter Job ID: [id number] Olivier Ryan MD DOD:08/25/2021 09:58 A ERICA/bay DOT:08/25/2021 10:34 A Job Number: [id number] Document Number: [id number] cc: Olivier Ryan MD [address] [place] [address] Surgical Pathologyon 022 Surgical Pathology [id number] [facility] PATHOLOGY AND LABORATORY MEDICINE [address] [place], [place] [id number] FINAL SURGICAL PATHOLOGY REPORT NAME: JENNIFER RICHARD N [id number] : 1955 66 Y F BILLING NO.: [id number] LOCATION: [address] PROCEDURE 08/25/2021 DATE: SURGEON: OLIVIER RYAN M.D. RECEIVED 08/25/2021 DATE: ATTENDING: OLIVIER RYAN M.D. REPORT DATE: 08/26/2021 COPIES TO: DIAGNOSIS: A&B) SOFT TISSUE MASS, LEFT ARM, EXCISION - SCHWANNOMA JAW/JAW Signature> RAAD DONALDSON M.D. CLINICAL INFORMATION: Left arm nerve tumor SPECIMEN: (A) MASS - SMALL, EXCISION (B) MASS - SMALL, EXCISION INTRAOPERATIVE CONSULTATION/FROZEN SECTION DIAGNOSIS: FROZEN SECTION DIAGNOSIS: Spindle cell lesion, schwannoma? Obvious malignancy not identified. Juan José Brunson M.D./Howie Curran M.D. GROSS DESCRIPTION: A. Received fresh for frozen section labeled left arm mass is a pink-becerra tissue fragment measuring 0.7 x 0.4 x 0.2 cm. The specimen previously entirely utilized for frozen section is submitted in a single cassette. B. Received in formalin labeled left arm mass are multiple irregular fragments of pink to yellow-becerra soft tissue aggregating to 2 x 2 cm. The specimen is entirely submitted in two cassettes. [email or web address] Disclaimer: The following statement applies to all immunohistochemistry, in situ hybridization, molecular studies, and immunofluorescence testing. The use of one or more reagents in the above tests is regulated as an analyte specific reagent (ASR). These tests were developed and their performance characteristics determined by the clinical laboratories of [facility]. They have not been cleared by the US Food and Drug Administration (FDA). The FDA has determined that such clearance or approval is not necessary. All the above immunostains were performed on paraffin embedded tissue. Appropriate positive and negative controls (where applicable) were run in parallel with the patient's specimen; these controls showed expected staining pattern, with acceptable intensity of staining. Immunohistochemical assays have not been validated on decalcified tissues. Results should be interpreted with caution given the raised possibility of false negativity on decalcified specimens. Professional Performing Location: [place] [address]. DEPARTMENT OF PATHOLOGY AND LABORATORY MEDICINE [place], [place] [address] [email or web address] Normal [facility] Lab Report: PAP I-G HPV Hi R iskon 04-18-2017 GE use only - for LinkLogic import when terms are not otherwise specified Negative Invalid Interpretation Code Negative [facility] Office Visit: est annualon 0 2017 Documentation of current medications (procedure) Done Invalid Interpretation Code [facility] Fall risk assessment No Invalid Interpretation Code [facility] Hemoglobin presence in stool not done Invalid Interpretation Code [facility] Tobacco smoking status NHIS Never Invalid Interpretation Code [facility] Tobacco use CPHS Never smoker Invalid Interpretation Code [facility] Lab Report: Lipid Profileon 04-06-2017 Cholesterol in HDL mass conc 117 mg/dL Invalid Interpretation Code [facility] Cholesterol in LDL mass conc 93 mg/dL Invalid Interpretation Code 0-130 [facility] Cholesterol mass conc 224 mg/dL High 200 [facility] Lipoprotein.pre-be ta mass conc 14 mg/dL Invalid Interpretation Code 5-40 [facility] Triglyceride mass conc 70 mg/dL Invalid Interpretation Code [facility] Lab Report: T4 Free Directon 04-06-2017 T4 free mass conc 1.21 ng/dL Invalid Interpretation Code 0.76-1.46 [facility] Lab Report: Thyroid Stim Hor zoey (TSH)on 04-06-2017 Thyrotropin Qn 0.42 u[iU]/mL Invalid Interpretation Code 0.358-3.74 [facility] Office Visit: est annualon 0 11-05-2015 General categories [Interpretation] of Cervical or vaginal smear or scraping by Cyto stain Normal Invalid Interpretation Code [facility] Office Visit: est annualon 0 12-04-2014 Breast Mammogram screening Normal Bilateral Invalid Interpretation Code [facility] Vital Signs Date Time Vital Sign Value Performing Clinician Faci litjazmyn 10-16-2022 13:05-0400 Body temperature 97.9 [degF] David Samayoa Jr., MD Work Phone: [facility] 10-16-2022 13:05-0400 Body weight 74.39 kg David Samayoa Jr., MD Work Phone: [facility] 10-16-2022 13:05-0400 Diastolic blood pressure 86 mm[Hg] David Samayoa Jr., MD Work Phone: [facility] 10-16-2022 13:05-0400 Heart rate 75 /min David Samayoa Jr., MD Work Phone: [facility] 10-16-2022 13:05-0400 Respiratory rate 18 /min David Samayoa Jr., MD Work Phone: [facility] 10-16-2022 13:05-0400 Systolic blood pressure 129 mm[Hg] David Samayoa Jr., MD Work Phone: [facility] 08-30-2022 15:04-0500 Diastolic Blood Pressure Non-Invasive 62 1 MARIN DOSS DO [facility] 08-30-2022 15:04-0500 Heart rate 65 /min MARIN DOSS DO [facility] 08-30-2022 15:04-0500 Systolic Blood Pressure Non-Invasive 120 1 MARIN SPITTLE DO [facility] 08-30-2022 14:44-0500 Diastolic Blood Pressure Non-Invasive 64 1 MARIN SPITTLE DO [facility] 08-30-2022 14:44-0500 Heart rate 64 /min MARIN SPITTLE DO [facility] 08-30-2022 14:44-0500 Systolic Blood Pressure Non-Invasive 121 1 MARIN SPITTLE DO [facility] 08-30-2022 14:23-0500 Diastolic Blood Pressure Non-Invasive 69 1 MARIN SPITTLE DO [facility] 08-30-2022 14:23-0500 Heart rate 67 /min MARIN SPITTLE DO [facility] 08-30-2022 14:23-0500 Respiratory rate 13 /min MARIN SPITTLE DO [facility] 08-30-2022 14:23-0500 Systolic Blood Pressure Non-Invasive 135 1 MARIN SPITTLE DO [facility] 08-30-2022 14:10-0500 Respiratory rate 15 /min MARIN SPITTLE DO [facility] 08-30-2022 13:56-0500 Respiratory rate 15 /min MARIN SPITTLE DO [facility] 08-30-2022 13:40-0500 Body temperature 97.7 [degF] MARIN SPITTLE DO [facility] 08-30-2022 13:35-0500 Respiratory Rate - Anes 14 br/min MARIN SPITTLE DO [facility] 08-30-2022 13:30-0500 Respiratory Rate - Anes 15 br/min MARIN SPITTLE DO [facility] 08-30-2022 13:25-0500 Respiratory Rate - Anes 15 br/min MARIN SPITTLE DO [facility] 08-30-2022 13:15-0500 Body temperature 96.8 [degF] MARIN SPITTLE DO [facility] 08-30-2022 12:45-0500 Body temperature 96.8 [degF] MARIN SPITTLE DO [facility] 08-30-2022 12:10-0500 Heart rate 72 /min MARIN SPITTLE DO [facility] 08-30-2022 11:05-0500 Body height 161 cm MARIN SPITTLE DO [facility] 08-30-2022 11:05-0500 Body temperature 97.34 [degF] MARIN SPITTLE DO [facility] 08-30-2022 11:05-0500 Body weight 70.5 kg MARIN SPITTLE DO [facility] 08-30-2022 11:05-0500 Heart rate 63 /min MARIN SPITTLE DO [facility] 2017 12:58-0400 BMI (Body Mass Index) 22.45 kg/m2 Rand Melgar MD [facility] 2017 12:58-0400 Body Temperature 96.5 [degF] Rand Melgar MD [facility] 2017 12:58-0400 Body Temperature 96.49 [degF] Rand Melgar MD [facility] 2017 12:58-0400 BP Diastolic 79 mm[Hg] Rand Melgar MD [facility] 2017 12:58-0400 BP Systolic 123 mm[Hg] Rand Melgar MD [facility] 2017 12:58-0400 Height 162.56 cm Rand Melgar MD [facility] 2017 12:58-0400 Pulse (Heart Rate) 83 /min Rand Melgar MD [facility] 2017 12:58-0400 Respiratory Rate 16 /min Rand Melgar MD [facility] 2017 12:58-0400 Weight 59.33 kg Rand Melgar MD [facility] Encounters Encounter Date Encounter Type Care Provider Facility Start: 03-29-2023 End: 03-29-2023 ambulatory Alma Rosa Rivera PT Work Phone: [facility] Physical Therapy Comment on above: Neuralgia of 7th aircraft manager nial nerve (Primary Dx); Facial weakness Start: 12-19-2022 End: 12-19-2022 ambulatory ZABRINA KUMADYALFONSO Facility:[facility] Start: 12-14-2022 Orders Only Reid Urrutia MD Work Phone: Radiology Comment on above: Cognitive impairment (Primary Dx) Start: 12-12-2022 End: 12-12-2022 ambulatory ZHANG MATTHEWSNGER Facility:[facility] Start: 11-14-2022 Telephone encounter David Samayoa MD Work Phone: Sleep Comment on above: Orders Start: 10-16-2022 End: 10-16-2022 Patient encounter procedure David Samayoa MD Work Phone: Neurology Comment on above: Neuralgia of 7th aircraft manager nial nerve (Primary Dx); Torres's palsy; Facial weakness Start: 10-05-2022 Telephone encounter David Samayoa MD Work Phone: Neurology Comment on above: Appointment (Calling for clarification on appt details and where she was last seen. ) Start: 08-30-2022 End: 08-30-2022 ambulatory ZHANG MUHAMMAD DO Facility:[facility] Start: 08-30-2022 End: 08-30-2022 SAME DAY STAY MARIN DOSS DO [facility] Start: 08-29-[address] SOHA PHILLIP MD. Facility:[facility] Procedures Date Procedure Procedure Detail Performing Clinician Start: 2017 End: 04-18-2017 Mammogram, screening Rand eldridge MD Work Phone: Start: 02-26-2017 Thyroid disorder screening Screening for thyroid disorder Rand Melgar MD Start: 05-03-2015 Mammography David choudhary Jr., MD Work Phone: Start: 12-10-2014 Colonoscopy David choudhary Jr., MD Work Phone: Cataract (disorder) MARIN SELAM PORTILLO Comment on above: BOTH EYES 2021 Excision of bunion MARIN DOSS DO Comment on above: BILATERAL 1998 Neuroma (disorder) MARIN SPIJOON DO Comment on above: REMOVAL FROM LEFT AR M Plan of Treatment Date Care Activity Detail Author Start: 04-06-2023 Influenza vaccination INFLUENZA (#1) [facility] Start: 08-28-2022 COVID-19 VACCINE (5 - Moderna series) COVID-19 VACCINE (5 - Moderna series) [facility] Start: 08-06-2022 ADVANCE DIRECTIVE DISCUSSION ADVANCE DIRECTIVE DISCUSSION [facility] Start: 08-06-2022 DEPRESSION ASSESSMENT DEPRESSION ASS ESSMENT [facility] Start: 04-06-2022 Influenza vaccination INFLUENZA (#1) [facility] Start: 11-18-2020 LIPID SCREEN LIPID SCREEN [facility] Start: 12-11-2019 Colonoscopy COLONOSCOPY [facility] Start: 12-11-2019 COLORECTAL CANCER SCREENING COLORECTAL CANCER SCREENING [facility] Start: 2019 BONE DENSITY BONE DENSITY [facility] Start: 2019 PNEUMOCOCCAL: 65+ (1 - PCV) PNEUMOCOCCAL: 65+ (1 - PCV) [facility] Start: 11-18-2018 DIABETES SCREEN DIABETES SCREEN [facility] Start: 2017 End: 2017 Appointment Appointment [facility] Start: 2017 End: 04-18-2017 Mammogram, screening Mammogram, Screening, both breasts [facility] Start: 02-26-2017 End: 04-06-2017 Lipid panel Lipid Panel [facility] Start: 02-26-2017 End: 04-06-2017 TSH + Free T4 TSH + Free T4 [facility] Start: 05-03-2016 Mammography MAMMOGRAM [facility] Start: 2004 SHINGRIX VACCINE (1 of 2) SHINGRIX VACCINE (1 of 2) [facility] Start: 1999 COLOGUARD (FIT-DNA) COLOGUARD (FIT-D NA) [facility] Start: [address] COLONOGRAPHY [facility] Start: 1999 FECAL OCCULT BLOOD FECAL OCCULT BLOO D [facility] Start: [address] [facility] Start: 1973 Urine microalbumin profile DTAP,TDAP,TD (1 - Tdap) [facility] Start: 1972 ANNUAL PCP TEAM GRAPHIC EDITOR ARDEN DISEASE VISIT ANNUAL PCP TEAM CHRONIC DISEASE VISIT [facility] Start: 1972 HEPATITIS C SCREENING HEPATITIS C SC RICHARD [facility] Start: 1955 COVID-19 VACCINE (#1) COVID-19 VACCI NE (#1) [facility] End: 11-15-2023 Mri brain brain stem w/o contrast material MRI BRAIN WO IVCON Radiology Routine Torres's palsy 1 Occurrences starting 10/16/2022 until 11/15/2023 [facility] Work Phone: Comment on above: 1 Occurrences starti ng 10/16/2022 until 11/15/2023 [facility] Payers Date Payer Category Payer Medicare [id number] 2019 Medicare MEDICARE MEDICAR E A AND B [id number] 2019-Present [phone] [place] [address] Medicare [id number] 2019 Unknown [id number] 2019 Unknown ALL [employer] ME DICARE SUPPLEMENT [id number] 2019-Present [phone] [address] [place] [address] Indemnity [id number] 1955 Unknown [id number] Social History Date Type Detail Facility Start: 07-19-2011 End: 08-29-2022 Tobacco smoking status Never smoked tobacco (finding) [facility] Sex Assigned At Female [facility] Start: 07-19-2011 Tobacco use and exposure Smokeless tobacco non-user [facility] Start: 03-22-2022 End: 12-19-2022 Alcohol intake Current drinker of alcohol (finding) [facility] Start: 09-29-2014 Alcohol Comment Socially [facility] Start: 1955 Sex Assigned At Not on file C [facility] Start: 12-12-2022 End: 12-19-2022 History of Social function [facility] Start: 12-12-2022 End: 12-19-2022 Tobacco use panel [facility] National Score (1-100), lower number is lower risk 72 [facility] Functional Status Date Assessment Result Facility 08-30-2022 Functional Status Up to bathroom [facility] 08-30-2022 Functional Status bilateral knee high l [facility] 08-30-2022 Functional Status NPO Status Maintained A [facility] 08-30-2022 Functional Status [facility] Mental Status Date Assessment Result Facility 08-30-2022 Mental Status Orientation Oriented x 4 [facility] 08-30-2022 [facility] 08-30-2022 Mental Status [facility] Clinical Notes 12-10-2014 to 03-29-2023 Alma Rosa Rivera, PT - 03/29/2023 1:03 PM Riky Samayoa Jr., MD - 10/16/2022 1:04 PM EDTTelephone Encounter - Brooklynnjose r Aclala LPN - 10/05/2022 1:27 PM EST Note Date & Type Note Facility 03-29-2023 Note HNO ID: [id number] Author: ALMA ROSA RIVERA PT Service: ? Author Type: Physical Therapist Type: Progress Notes Filed: 08/16/2023 09:50 Note Text: 08/16/2023 [facility] PHYSICAL THERAPY DISCONTINUANCE OF CARE Plan of Care Period: Start of Care Date: 12/12/22 Last Visit Date: 03/29/2023 Therapy Program: The following is a summary of the interventions provided for this episode of care; Neuromuscular re-education, Manual therapy, and Patient/Family/Caregiver Education Assessment: The following is the goal status: Goals for Episode of Care: created on 12/12/22, updated 03/29/2023: Pt will report decreased tenderness at left forehead-improving per pt report. Pt will demonstrate improved movement at left frontalis-improvement noted 03/29/2023. [place] in home exercise program-met as instructed 03/29/2023. Patient Goals: regain frontalis movement-improving. Based on the most recent progress report, patient was progressing as expected toward functional goals based on documented subjective information on progress and documented objective information regarding overall function. Reason for Discontinuation of Care: Patient has not returned to therapy or scheduled additional follow-up appointments. Alma Rosa Rivera PT Episode Visit Count: 2 Therapist That Will Accept/Oversee The Plan Of Care: Alma Rosa Rivera Start of Care Date: 12/12/22 Onset Date: 06/06/22 Plan of Care Certification Date: 12/12/22 Next Certification Due Date: 04/04/23 REHABILITATION AND SPORTS THERAPY PHYSICAL THERAPY PROGRESS REPORT PLAN OF CARE UPDATE: Assessment: Jennifer K Bogner demonstrates improvements in left frontalis motion and resting face symmetry. She has progressed toward goals. Patient continues to present with impairments in tissue tenderness and facial asymmetry. She may benefit from continued skilled therapy services in the future to fully meet the updated goals for this plan of care as noted below. Goals for Episode of Care: created on 12/12/22, updated 03/29/2023: Pt will report decreased tenderness at left forehead-improving per pt report. Pt will demonstrate improved movement at left frontalis-improvement noted 03/29/2023. [place] in home exercise program-met as instructed 03/29/2023. Patient Goals: regain frontalis movement-improving. PLAN FOR NEXT VISIT: pt to cont with indep HEP and f/u as indicated. SUBJECTIVE: . Pt reports decreased headaches, she did notice some stress with prolonged driving. HEP going well, she feels like she is healing. She has returned to tennis and pickle ball. She has fallen since last in PT, carrying to much, and fell, landed on knees, then she had a slip on wet deck, fell and hit her head. Pain: Pain Pain Level: 1 Pain Location: Head - Left PROMIS Scales T-scores: mean of general population = 50. 5 points is clinically meaningfully difference Percentiles provide an indication of how the patient's score ranks in relation to the general population. Higher percentile rankings indicate better function/quality of life. 50th percentile is the average of the general population and indicates half of respondents had a worse score. OBJECTIVE MEASURES WITH LEVEL OF FUNCTION: [place] Facial Grading System: 87/100 Resting Symmetry: Eye-symmetrical Cheek (naso-labial fold)-left mildy more pronounced vs right Mouth-symmetrical Symmetry of voluntary movement and synkinesis Forehead wrinkle-initiates movement with mild excursion with no synkinesis Gentle eye closure-movement complete with no synkinesis Open mouth smile- movement complete with no synkinesis Snarl-movement complete with no synkinesis Lip pucker-movement complete with no synkinesis TREATMENT: Manual Therapy: Dry needling to following Trigger/tender points: left temporalis, left vp scientific Needle length: 15mm .6 in . Sunshine used 3, needles removed 3. Dry needling technique used: Pistoning and Basic needling. Patient education on purpose, precautions, safety, risks, and other treatment options regarding dry needling. Verbal consent received. Skilled Intervention: Manual skills to improve joint mobility, ROM, and decrease pain. Utilized anatomy knowledge of the therapist, and assessment of patient's response to intervention. Neuromuscular Re-Education: 1: massage (encouraged light pressure to move skin) at temples to frontalis, hairline to eye brows, medial to lateral 2: grasp and stretch at eye brows beginning medially and moving laterally, stretch and hold as indicated 3: massage with flat finger at sup orbicularis occuli, medial to lateral 4: *grasp and stretch at inf/lateral mandible, cues to walk stretch up into cheek and behind left eye for additional stretch 5: active movement-begin with zero, move small and steady with mindful attn to movement right and left, multiple repetitions completed with cuing throughout 6: eye br (more content not included)... [facility] 03-29-2023 History of Presen t illness Narrative Episode Visit Count: 2 Therapist That Will Accept/Oversee The Plan Of Care: Alma Rosa Rivera Start of Care Date: 12/12/22 Onset Date: 06/06/22 Plan of Care Certification Date: 12/12/22 Next Certification Due Date: 04/04/23 REHABILITATION AND SPORTS THERAPY PHYSICAL THERAPY PROGRESS REPORT PLAN OF CARE UPDATE: Assessment: Jennifer Richard demonstrates improvements in left frontalis motion and resting face symmetry. She has progressed toward goals. Patient continues to present with impairments in tissue tenderness and facial asymmetry. She may benefit from continued skilled therapy services in the future to fully meet the updated goals for this plan of care as noted below. Goals for Episode of Care: created on 12/12/22, updated 03/29/2023: Pt will report decreased tenderness at left forehead-improving per pt report. Pt will demonstrate improved movement at left frontalis-improvement noted 03/29/2023. [place] in home exercise program-met as instructed 03/29/2023. Patient Goals: regain frontalis movement-improving. PLAN FOR NEXT VISIT: pt to cont with indep HEP and f/u as indicated. SUBJECTIVE: . Pt reports decreased headaches, she did notice some stress with prolonged driving. HEP going well, she feels like she is healing. She has returned to tennis and pickle ball. She has fallen since last in PT, carrying to much, and fell, landed on knees, then she had a slip on wet deck, fell and hit her head. Pain: Pain Pain Level: 1 Pain Location: Head - Left PROMIS Scales T-scores: mean of general population = 50. 5 points is clinically meaningfully difference Percentiles provide an indication of how the patient's score ranks in relation to the general population. Higher percentile rankings indicate better function/quality of life. 50th percentile is the average of the general population and indicates half of respondents had a worse score. OBJECTIVE MEASURES WITH LEVEL OF FUNCTION: [place] Facial Grading System: 87/100 Resting Symmetry: Eye-symmetrical Cheek (naso-labial fold)-left mildy more pronounced vs right Mouth-symmetrical Symmetry of voluntary movement and synkinesis Forehead wrinkle-initiates movement with mild excursion with no synkinesis Gentle eye closure-movement complete with no synkinesis Open mouth smile- movement complete with no synkinesis Snarl-movement complete with no synkinesis Lip pucker-movement complete with no synkinesis TREATMENT: Manual Therapy: Dry needling to following Trigger/tender points: left temporalis, left vp scientific Needle length: 15mm .6 in . Sunshine used 3, needles removed 3. Dry needling technique used: Pistoning and Basic needling. Patient education on purpose, precautions, safety, risks, and other treatment options regarding dry needling. Verbal consent received. Skilled Intervention: Manual skills to improve joint mobility, ROM, and decrease pain. Utilized anatomy knowledge of the therapist, and assessment of patient's response to intervention. Neuromuscular Re-Education: 1: massage (encouraged light pressure to move skin) at temples to frontalis, hairline to eye brows, medial to lateral 2: grasp and stretch at eye brows beginning medially and moving laterally, stretch and hold as indicated 3: massage with flat finger at sup orbicularis occuli, medial to lateral 4: *grasp and stretch at inf/lateral mandible, cues to walk stretch up into cheek and behind left eye for additional stretch 5: active movement-begin with zero, move small and steady with mindful attn to movement right and left, multiple repetitions completed with cuing throughout 6: eye brow raise-cues for small motion and hold, 7: *squint-cues to pretend as though she is looking far down the road and to close orbicularis occuli about her eyes for squint Skilled Intervention: Reviewed and educated patient on additions/changes for home program -see * for additional HEP Provided written instruction for home program to facilitate proper performance and compliance. Correct performance of home program was facilitated with verbal and visual cueing. Billing Manual TherapyTreatment Minutes: 13 Neuromuscular Re-Education Treatment Minutes: 50 Total Treatment Time Minutes (timed/untimed): 63 Session Start Time : 010 Session Stop Time : 204 Alma Rosa Rivera PT documented in this encounter [facility] 12-19-2022 Note HNO ID: [id number] Author: Zabrina Rojas PA-C Service: ? Author Type: Physician Inspecting Supervisor Type: Progress Notes Filed: 12/21/2022 8:10 AM Note Text: [facility] Name: Jennifer Richard Age: [age] year old Gender: female Primary Care Provider: Zhang Muhammad DO Assessment/Plan: The encounter diagnosis was 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. 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 She was initially seen by Dr. Samayoa for the same reason on 10/16/2022. At last visit, an MRI of the brain was done without contrast to assess for any obvious areas of damage. MRI of the brain was unremarkable. Interestingly, quantitative was done although this was not originally ordered. Quantitative analysis of the hippocampus was 68th percentile. Patient is participating in physical therapy with some benefit. Patient's main concern today is determining the prognosis. She would like to know whether the 7th cranial nerve is irreversibly damaged or if it will recover. We did discuss that an EMG would better quantify the extent of damage and confirm localization of the damage. However, this would not necessarily change our treatment plan which is to continue with physical therapy. Patient would like to hold off on EMG for now and will continue with physical therapy. She has an upcoming trip planned to [place] for several months. We will reconsider need for EMG at follow-up visit with Dr. Samayoa. We also discussed the possibility of a referral to plastic surgeon, Dr. Moon, for any recommendations regarding surgical interventions. Patient also would prefer to hold off on this. Plan: 1) Continue physical therapy for now 2) Offer for EMG of the facial nerve and referral to Dr. Moon (in plastics). Patient declined for now. Will reevaluate after she returns from [place] at follow up with Dr. Samayoa. Will reconsider at that time pending course. Orders Placed This Encounter Multivitamin capsule Sig: Take 1 capsule by mouth once daily. No follow-ups on file. Chart, labs,and relevant images reviewed. 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 She was initially seen by Dr. Samayoa for the same reason on 10/16/2022. At last visit, an MRI of the brain was done without contrast to assess for any obvious areas of damage. MRI of the brain was unremarkable. Interestingly, quantitative was done although this was not originally ordered. Quantitative analysis of the hippocampus was 68th percentile. Patient is participating in physical therapy with some benefit. She is still having some difficulty with raising her left eyebrow, but she reports that the physical therapist has seen some improvement. Patient is 6-7 months out from the original incident. Patient does not have any new symptoms. No unilateral hearing loss or imbalance. Patient's main concern today is determining the prognosis. She would like to know whether the 7th cranial nerve is irreversibly damaged or if it will recover. 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 escitalopram oxalate (LEXAPRO) 10 mg tablet Take 10 mg by mouth once daily. levothyroxine (SYNTHROID) 112 mcg tablet Take 1 tablet by mouth once daily. (Patient taking differently: Take 75 mcg by mouth once daily.) zolpidem (AMBIEN) 5 mg tablet Take 1 tablet by mouth at bedtime as needed. FOR INSOMNIA MAGNESIUM ORAL Take by mouth. Ibuprofen-diphenhydrAMINE 200-38 mg tab Take by mouth as needed. levothyroxine (SYNTHROID) 112 mcg tablet TAKE 1 TABLET BY MOUTH EVERY DAY (Patient not taking: No sig reported) LORazepam (ATIVAN) 0.5 mg tab Take 1 tablet by mouth three times daily as needed. (Patient not taking: Reported on 10/16/2022) CALCIUM CARBONATE/VITAMIN D3 (VITAMIN D-3 ORAL) Take by mouth. (Patient not taking: Reported on 10/16/2022) ECHINACEA HERB ORAL Take by mouth. (Patient not taking: Reported on 12/19/2022) azithromycin (ZITHROMAX) 250 mg tablet Take two pills on the first day then one pill x 4 days (Patient not taking: Reported on 12/19/2022) oxyCODONE-acetaminophen (PERCOCET) 5-325 mg tablet Take 1-2 tablets by mouth every 4 hours as needed. VITAMIN B COMPLEX ORAL Take by mouth. (more content not included)... [facility] 12-12-2022 Note HNO ID: [id number] Author: Alma Rosa Rivera PT Service: ? Author Type: Physical Therapist Type: Progress Notes Filed: 12/12/2022 4:23 PM Note Text: Episode Visit Count: 1 Therapist That Will Accept/Oversee The Plan Of Care: Alma Rosa Rivera Start of Care Date: 12/12/22 Onset Date: 06/06/22 Plan of Care Certification Date: 12/12/22 Next Certification Due Date: 04/04/23 Patient Identified by Name and Date of : Yes REHABILITATION AND SPORTS THERAPY PHYSICAL THERAPY EVALUATION PLAN OF CARE: Assessment: Jennifer Richard presents with diagnosis of temporal branch left CN7 injury that interferes with (raising left forehead) . She presents with impairments in tissue tenderness and mild balance challenge. Patient did not complete the PROMIS? (Patient Reported Outcome Measures Information System). Prognosis for therapy is Good due to: current objective clinical presentation . She will benefit from skilled therapy services to meet the goals established for this plan of care as noted below. Goals for Episode of Care: created on 12/12/22 through 04/14/23 Pt will report decreased tenderness at left forehead Pt will demonstrate improved movement at left frontalis. [place] in home exercise program. Patient Goals: regain frontalis movement Planned Interventions, Frequency, and Duration: Current Frequency: 1 visit (in 3 months) Total Number of Visits Planned: 1 Planned Treatment Interventions: Therapeutic exercise (55447), Neuromuscular re-education (18534), Manual therapy (98232), Patient/Family/Caregiver Education PLAN FOR NEXT VISIT: review and progress neuromuscular re-ed as indicated, consider dry needling. Patient demonstrates good understanding of plan of care and treatment. The above goals and plan of care were discussed and agreed upon by patient/family. SUBJECTIVE: Jennifer Richard is a 67 year old female seen today for left temporal branch CN7 injured when she tripped and fell, landed on left forehead, had concussion and still has headaches. She cont with weakness at left forehead. She reports pain with pressing at forehead and headaches. She has returned to activity-playing pickle ball, biking. She has done balance work in therapy. 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 5 points is clinically meaningfully difference Percentiles provide an indication of how the patient's score ranks in relation to the general population. Higher percentile rankings indicate better function/quality of life. 50th percentile is the average of the general population and indicates half of respondents had a worse score. OBJECTIVE MEASURES WITH LEVEL OF FUNCTION: [place] Facial Grading System: 78/100 Resting Symmetry: Eye-left eye narrow vs right Cheek (naso-labial fold)-more pronounced left vs right Mouth-symmetrical Symmetry of voluntary movement and synkinesis Forehead wrinkle-initiates slight movement with no synkinesis Gentle eye closure-movement complete with no synkinesis Open mouth smile--movement complete with no synkinesis Snarl-movement complete with no synkinesis, *decreased left vp scientific motion noted Lip pucker-movement complete with no synkinesis Functional Performance Test Results 5 Times Sit to Stand Test : 8 sec 4 Stage Balance Test Narrow base of support (sec): 10 sec Semi-tandem base of support (sec): 10 sec Tandem base of support (sec): 10 sec Single leg stance - right (sec): 10 sec Single leg stance - left (sec): 10 sec Education: Education Learning Preferences: Demonstration, Explanation, Performance, Printed Materials Barriers: None Learning/educational needs: Home exercise program, Plan of Care Education Provided: Yes, see treatment interventions for education provided Education Provided To: Patient Education Mode/Type: Demonstration, Literature/Printed Materials, Explanation/Discussion, Performance Response to Education/Teach Back: Return Demonstration TREATMENT: PT Treatment Interventions: Neuromuscular Re-Educati (more content not included)... [facility] 10-16-2022 History of Presen t illness Narrative NEW PATIENT (CONSULT) HISTORY AND PHYSICAL EXAM PRIMARY CARE PHYSICIAN: Zhang Muhammad DO REASON FOR CONSULT: Concussion REFERRING PHYSICIAN: No ref. provider found CHIEF COMPLAINT: L facial weakness Consultation requested by No ref. provider found for an opinion regarding chief complaint of Patient presents with: New Patient and my final recommendations will be communicated back to the requesting physician by way of shared medical record or letter via [place] mail. HISTORY OF PRESENT ILLNESS: Jennifer Richard is a 67 year old female, with a PMH significant for that below and falls x2. States first occurred in June and was mechanical fall when toe caught on door jam and pt fell and smashed head on garage floor. The second fall was in August 2022, when slipped on ice with fx of right wrist. Patient states everyone told her to go see a neurologist. States the left eye has not perked back up. Patient with obvious peripheral facial weakness on left during history. Left frontal and temp regions still hurt. Had 5 stitches over eye brow. The facial weakness started right after the injury. No dry eye. No neck pain or issues at this time. No symptoms in arms or legs. No change in taste. No issues eating. REVIEW OF SYSTEMS GENERAL:No weight loss, malaise or fevers. HEENT:Negative for frequent or significant headaches, No changes in hearing or vision, no nose bleeds or other nasal problems NECK:Negative for lumps, goiter, pain and significant neck swelling RESPIRATORY: Negative for cough, wheezing or shortness of breath. CARDIOVASCULAR: Negative for chest pain, leg swelling or palpitations. GASTROINTESTINAL: Negative for abdominal discomfort, blood in stools or black stools or change in bowel habits GENITOURINARY: No history of dysuria, frequency or incontinence MUSCULOSKELETAL: Negative for joint pain or swelling, back pain or muscle pain. NEUROLOGIC:See HPI. SKIN:Negative for lesions, rash, and itching. HEMATOLOGIC/LYMPHATIC/IMMUNOLOGI C:Negative for prolonged bleeding, bruising easily or swollen nodes. ENDOCRINE: Negative for cold or heat intolerance, polyuria, polydipsia and goiter. The remainder of the ROS was reviewed and is negative. LAB/IMAGING: Reviewed and include: Glucose (mg/dL) Date Value 11/19/2015 83 BUN (mg/dL) Date Value 11/19/2015 16 Creatinine (mg/dL) Date Value 11/19/2015 0.59 (L) Sodium (mmol/L) Date Value 11/19/2015 141 Potassium (mmol/L) Date Value 11/19/2015 4.1 Chloride (mmol/L) Date Value 11/19/2015 102 CO2 (mmol/L) Date Value 11/19/2015 26 Protein, Total (g/dL) Date Value 11/19/2015 7.1 Albumin (g/dL) Date Value 11/19/2015 4.6 Calcium (mg/dL) Date Value 11/19/2015 9.2 Alkaline Phosphatase (U/L) Date Value 11/19/2015 55 Bilirubin, Total (mg/dL) Date Value 11/19/2015 0.7 AST (U/L) Date Value 11/19/2015 25 ALT (U/L) Date Value 11/19/2015 13 MEDICATIONS: levothyroxine (SYNTHROID) 112 mcg tablet Take 1 tablet by mouth once daily. (Patient taking differently: Take 75 mcg by mouth once daily.) MAGNESIUM ORAL Take by mouth. escitalopram oxalate (LEXAPRO) 10 mg tablet Take 10 mg by mouth once daily. levothyroxine (SYNTHROID) 112 mcg tablet TAKE 1 TABLET BY MOUTH EVERY DAY (Patient not taking: Reported on 10/16/2022) LORazepam (ATIVAN) 0.5 mg tab Take 1 tablet by mouth three times daily as needed. (Patient not taking: Reported on 10/16/2022) zolpidem (AMBIEN) 5 mg tablet Take 1 tablet by mouth at bedtime as needed. FOR INSOMNIA (Patient not taking: Reported on 10/16/2022) CALCIUM CARBONATE/VITAMIN D3 (VITAMIN D-3 ORAL) Take by mouth. (Patient not taking: Reported on 10/16/2022) ECHINACEA HERB ORAL Take by mouth. azithromycin (ZITHROMAX) 250 mg tablet Take two pills on the first day then one pill x 4 days oxyCODONE-acetaminophen (PERCOCET) 5-325 mg tablet Take 1-2 tablets by mouth every 4 hours as needed. Ibuprofen-diphenhydrAMINE 200-38 mg tab Take by mouth as needed. (Patient not taking: Reported on 10/16/2022) VITAMIN B COMPLEX ORAL Take by mouth. (Patient not taking: Reported on 10/16/2022) HISTORIES PAST MEDICAL HISTORY Diagnosis Date DARCI III (cervical intraepithelial neoplasia III) 12/2014 s/p [facility] HYPERLIPIDEMIA NEC/NOS 04/17/2006 normal now per patient Unspecified hypothyroidism FAMILY HISTORY Problem Relation Age of Onset Heart Mother Lipids Mother Colon Cancer Father along with liver and lung - kidney Thyroid Father Hypertension Mother SOCIAL HISTORY Social History Tobacco Use Smoking status: Never Smokeless tobacco: Never Substance Use Topics Alcohol use: Yes Comment: Socially Drug use: No PHYSICAL EXAMINATION Blood pressure 129/86, pulse 75, temperature 36.6 C (97.9 F), resp. rate 18, weight 74.4 kg (164 lb). GENERAL EXAM: General appearance: NAD, pleasant. HEENT: NC/AT, nasal congestion absent, no oral lesions, membranes moist. NECK: ROM nml. Lungs: CTA bilaterally. CV: RRR nl S1, S2. No carotid bruits. Extr: No cyanosis, clubbing or edema. Extremity pulses palpable and normal. Skin: Cool to touch. NEUROLOGICAL EXAM: General: Awake, alert, oriented x3 (person,place,time), speech fluent, no dysarthria; comprehension, naming, repetition intact. Fund of knowledge grossly normal. CN: PERRL, fundi with no evidence of papilledema, EOMI and without nystagmus, VFF to confrontation, facial sensation intact BUT noted partial CN7 palsy on left involving temp branches, hearing is intact to finger rub bilaterally, palate and tongue movements are intact and symmetric. SCM and trapezius strength normal. Motor: Normal tone, bulk and strength (5/5) bilaterally (throughout extremities x4). Reflexes: 2/4 and symmetric, plantar stimulation is flexor. Coordination: FNF, MARIOLA, HTS intact. No tremors. Sensation: Light touch, vibration, temperature intact throughout. No evidence of neglect. Gait: Stable with normal stride and arm swing. Assessment and Plan: ASSESSMENT/PLAN: 1. 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 - ICD9: 351.8, ICD10: G51.8 (primary diagnosis) 2. Facial weakness - ICD9: 781.94, ICD10: R29.810 Patient with partial 7th nerve palsy, involving temporal branch. Symptoms started following trauma to L frontal/temp regions of head secondary to mechanical fall. Possible those lacs noted on head were deep enough to result in nerve injury. CT brain reportedly unremarkable except for scalp hematoma per report at OSH. No inability to protect eye or close eye lids. Primary deficit is inability to raise eye brow or wrinkle forehead on left. Dx d/w pt. I do feel appropriate to follow up with MRI head to evaluate whether there is any other evidence of a compression mass or other lesion resulting in CN7 impairment. Will also refer to therapy to see if stim therapies such as those used with Torres's palsy would be of benefit. Will contact pt once MRI results known. Otherwise follow up in 3 months. Discussed plastics evaluation as well (I will reach out to them for any recs), but focus at this time is confirming dx and therapy. David Samayoa MD I spent a total of 45 minutes on the date of the service which included preparing to see the patient, jhwx-jc-pcvk patient care, completing clinical documentation, obtaining and/or reviewing separately obtained history, performing a medically appropriate examination, counseling and educating the patient/family/caregiver, ordering medications, tests, or procedures, communicating with other HCPs (not separately reported), and communicating results to the patient/family/caregiver. documented in this encounter [facility] 10-05-2022 Miscellaneous Notes Pt has appt with Dr. Samayoa for new patient on October 16 2022. Called and spoke with pt about PCP, referring doctor and why she needs to be see. Pt stated she fell in June and got a concussion. She was seen at [facility] Jul 03. State Zhang Manjarrez is her PCP and pt has been under her care since then. Will get results and visit notes from [facility]. Brooklynn Alcala LPN documented in this encounter [facility] 08-30-2022 Hospital Discharg e instructions Patient Education 08/30/2022 14:08:23 Nausea and Vomiting, Adult, Urss-st-Henq Nausea and Vomiting, Adult Nausea is feeling sick to your stomach or feeling that you are about to throw up (vomit). Vomiting is when food in your stomach is thrown up and out of the mouth. Throwing up can make you feel weak. It can also make you lose too much water in your body (get dehydrated). If you lose too much water in your body, you may: Feel tired. Feel thirsty. Have a dry mouth. Have cracked lips. Go pee (urinate) less often. Older adults and people with other diseases or a weak body defense system (immune system) are at higher risk for losing too much water in the body. If you feel sick to your stomach and you throw up, it is important to follow instructions from your doctor about how to take care of yourself. Follow these instructions at home: Watch your symptoms for any changes. Tell your doctor about them. Follow these instructions to care for yourself at home. Eating and drinking Take an ORS (oral rehydration solution). This is a drink that is sold at pharmacies and stores. Drink clear fluids in small amounts as you are able, such as: ?Water. ?Ice chips. ?Fruit juice that has water added (diluted fruit juice). ?Low-calorie sports drinks. Eat bland, ohhb-kz-rwswuh foods in small amounts as you are able, such as: ?Bananas. ?Applesauce. ?Rice. ?Low-fat (lean) meats. ?[place]. ?Crackers. Avoid drinking fluids that have a lot of sugar or caffeine in them. This includes energy drinks, sports drinks, and soda. Avoid alcohol. Avoid spicy or fatty foods. General instructions Take jbzr-tyz-xcyprsh and prescription medicines only as told by your doctor. Drink enough fluid to keep your pee (urine) pale yellow. Wash your hands often with soap and water. If you cannot use soap and water, use hand manager food beverage. Make sure that all people in your home wash their hands well and often. Rest at home while you get better. Watch your condition for any changes. Take slow and deep breaths when you feel sick to your stomach. Keep all follow-up visits as told by your doctor. This is important. Contact a doctor if: Your symptoms get worse. You have new symptoms. You have a fever. You cannot drink fluids without throwing up. You feel sick to your stomach for more than 2 days. You feel light-headed or dizzy. You have a headache. You have muscle cramps. You have a rash. You have pain while peeing. Get help right away if: You have pain in your chest, neck, arm, or jaw. You feel very weak or you pass out (faint). You throw up again and again. You have throw up that is bright red or looks like black coffee grounds. You have bloody or black poop (stools) or poop that looks like tar. You have a very bad headache, a stiff neck, or both. You have very bad pain, cramping, or bloating in your belly (abdomen). You have trouble breathing. You are breathing very quickly. Your heart is beating very quickly. Your skin feels cold and clammy. You feel confused. You have signs of losing too much water in your body, such as: ?Dark pee, very little pee, or no pee. ?Cracked lips. ?Dry mouth. ?Sunken eyes. ?Sleepiness. ?Weakness. These symptoms may be an emergency. Do not wait to see if the symptoms will go away. Get medical help right away. Call your local emergency services (911 in the [place] Do not drive yourself to the hospital. Summary Nausea is feeling sick to your stomach or feeling that you are about to throw up (vomit). Vomiting is when food in your stomach is thrown up and out of the mouth. Follow instructions from your doctor about eating and drinking to keep from losing too much water in your body. Take dnnv-upd-zzqfwcp and prescription medicines only as told by your doctor. Contact your doctor if your symptoms get worse or you have new symptoms. Keep all follow-up visits as told by your doctor. This is important. This information is not intended to replace advice given to you by your health care provider. Make sure you discuss any questions you have with your health care provider. Document Released: 01/08/2009 Document Revised: 11/14/2019 Document Reviewed: 12/31/2018 [email or web address] Patient Education 2020 [employer] 08/30/2022 14:06:54 How to Use an Incentive Spirometer How To Use an Incentive Spirometer An incentive spirometer is a tool that measures how well you are filling your lungs with each breath. Learning to take long, deep breaths using this tool can help you keep your lungs clear and active. This may help to reverse or lessen your chance of developing breathing (pulmonary) problems, especially infection. You may be asked to use a spirometer: After a surgery. If you have a lung problem or a history of smoking. After a long period of time when you have been unable to move or be active. If the spirometer includes an indicator to show the highest number that you have reached, your health care provider or respiratory therapist will help you set a goal. Keep a list (log) of your progress as told by your health care provider. What are the risks? Breathing too quickly may cause dizziness or cause you to pass out. Take your time so you do not get dizzy or light-headed. If you are in pain, you may need to take pain medicine before doing incentive spirometry. It is harder to take a deep breath if you are having pain. How to use your incentive spirometer 1.Sit up on the edge of your bed or on a chair. 2.Hold the incentive spirometer so that it is in an upright position. 3.Before you use the spirometer, breathe out normally. 4.Place the mouthpiece in your mouth. Make sure your lips are closed tightly around it. 5.Breathe in slowly and as deeply as you can through your mouth, causing the piston or the ball to rise toward the top of the chamber. 6.Hold your breath for 3 5 seconds, or for as long as possible. If the spirometer includes a success coach indicator, use this to guide you in breathing. Slow down your breathing if the indicator goes above the marked areas. 7.Remove the mouthpiece from your mouth and breathe out normally. The piston or ball will return to the bottom of the chamber. 8.Rest for a few seconds, then repeat the steps 10 or more times. Take your time and take a few normal breaths between deep breaths so that you do not get dizzy or light-headed. Do this every 1 2 hours when you are awake. 9.If the spirometer includes a goal marker to show the highest number you have reached (best effort), use this as a goal to work toward during each repetition. 10.After each set of 10 deep breaths, cough a few times. This will help to make sure that your lungs are clear. If you have an incision on your chest or abdomen from surgery, place a pillow or a rolled-up towel firmly against the incision when you cough. This can help to reduce pain from coughing. General tips When you become able to get out of bed, walk around often and continue to cough to help clear your lungs. Keep using the incentive spirometer until your health care provider says it is okay to stop using it. If you have been in the hospital, you may be told to keep using the spirometer at home. Contact a health care provider if: You are having difficulty using the spirometer. You have trouble using the spirometer as often as instructed. Your pain medicine is not giving enough relief for you to use the spirometer as told. You have a fever. You develop shortness of breath. Get help right away if: You develop a cough with bloody mucus from the lungs (bloody sputum). You have fluid or blood coming from an incision site after you cough. Summary An incentive spirometer is a tool that can help you learn to take long, deep breaths to keep your lungs clear and active. You may be asked to use a spirometer after a surgery, if you have a lung problem or a history of smoking, or if you have been inactive for a long period of time. Use your incentive spirometer as instructed every 1 2 hours while you are awake. If you have an incision on your chest or abdomen, place a pillow or a rolled-up towel firmly against your incision when you cough. This will help to reduce pain. This information is not intended to replace advice given to you by your health care provider. Make sure you discuss any questions you have with your health care provider. Document Released: 12/03/2007 Document Revised: 08/15/2018 Document Reviewed: 06/05/2018 [email or web address] Patient Education 2020 [employer] 08/30/2022 14:06:29 Radial Fracture Radial Fracture A radial fracture is a break in the radius bone. The radius is a bone in the forearm, on the same side as the thumb. The forearm is the part of the arm that is between the elbow and the wrist. A radial fracture near the wrist (distal radialfracture) is the most common type of broken arm. A fracture can also occur near the elbow (radial head fracture). What are the causes? The most common cause of a radial fracture is falling with the arm outstretched. Other causes include: An accident, such as a car or bike accident. A hard, direct hit to the forearm. What increases the risk? You may be at greater risk for a radial fracture if you: Are female. Are an older adult. Play contact sports. Have a condition that causes your bones to become thin and brittle (osteoporosis). What are the signs or symptoms? A radial fracture causes pain immediately after the injury. Other signs and symptoms may include: An abnormal bend or bump in the arm (deformity). Swelling. Bruising. Numbness or tingling in your arm and hand. Limited movement of your arm and hand. How is this diagnosed? This condition may be diagnosed based on: Your symptoms and medical history. A physical exam. An X-ray. How is this treated? Treatment depends on how severe your fracture is, where it is, and how the pieces of the broken bone line up with each other (alignment). The first step may be for you to wear a temporary splint for a few days, until your swelling goes down. After the swelling goes down, you may get a cast, get a different type of splint, or have surgery. If your broken bone is in good alignment, you will need to wear a splint or cast for up to 6 weeks. If your broken bone is not aligned (is displaced), your health care provider will need to align the bone pieces. After alignment, you will need to wear a splint or cast for up to 6 weeks. To align your broken bone, your health care provider may: ?Move the bones back into position without surgery (closed reduction). ?Perform surgery to align the fracture and fix the bone pieces into place with metal screws, plates, or wires (open reduction and internal fixation, ORIF). ?Perform surgery to align the fracture and fix the bone pieces into place with pins that are attached to a stabilizing bar outside your skin (external fixation). Treatment may also include: Having your cast changed after 2 3 weeks. Physical therapy. Follow-up visits and X-rays to make sure you are healing. Follow these instructions at home: If you have a splint: Wear it as told by your health care provider. Remove it only as told by your health care provider. Loosen the splint if your fingers tingle, become numb, or turn cold and blue. Keep the splint clean and dry. If you have a cast: Do not stick anything inside the cast to scratch your skin. Doing that increases your risk for infection. Check the skin around the cast every day. Tell your health care provider about any concerns. You may put lotion on dry skin around the edges of the cast. Do not put lotion on the skin underneath the cast. Keep the cast clean and dry. Bathing Do not take baths, swim, or use a hot tub until your health care provider approves. Ask your health care provider if you may take showers. You may only be allowed to take sponge baths. If your splint or cast is not waterproof: ?Do not let it get wet. ?Cover it with a watertight covering when you take a bath or a shower. Activity Do not lift anything with your injured arm. Do not use the injured arm to support your body weight until your health care provider says that you can. Ask your health care provider what activities are safe for you during recovery, and ask what activities you need to avoid. Managing pain, stiffness, and swelling If directed, put ice on painful areas: ?If you have a removable splint, remove it as told by your health care provider. ?Put ice in a plastic bag. ?Place a towel between your skin and the bag, or between your cast and the bag. ?Leave the ice on for 20 minutes, 2 3 times a day. Move your fingers often to avoid stiffness and to lessen swelling. Raise (elevate) your arm above the level of your heart while you are sitting or lying down. General instructions Do not put pressure on any part of the cast or splint until it is fully hardened, if applicable. This may take several hours. Take nbrx-vxj-mpdkwpj and prescription medicines only as told by your health care provider. Do not drive until your health care provider approves. You should not drive or use heavy machinery while taking prescription pain medicine. Do not use any products that contain nicotine or tobacco, such as cigarettes and e-cigarettes. These can delay bone healing. If you need help quitting, ask your health care provider. Keep all follow-up visits as told by your health care provider. This is important. Contact a health care provider if you have: Pain that does not get better with medicine. Swelling that gets worse. A bad smell coming from your cast. Get help right away if: You cannot move your fingers. You have severe pain. Your fingers or your hand: ?Become numb, cold, or pale. ?Turn a bluish color. Summary A radial fracture is a break in the radius bone. The radius is in the forearm, on the same side as the thumb. Treatment depends on how severe your fracture is, where it is, and how the pieces of the broken bone line up with each other. A splint or cast may be needed to help the fracture heal. A more severe break may require surgery. This information is not intended to replace advice given to you by your health care provider. Make sure you discuss any questions you have with your health care provider. Document Released: 01/03/2007 Document Revised: 07/17/2018 Document Reviewed: 07/17/2018 [email or web address] Patient Education 2020 [employer] 08/30/2022 14:06:14 Monitored Anesthesia Care, Care After Monitored Anesthesia Care, Care After These instructions provide you with information about caring for yourself after your procedure. Your health care provider may also give you more specific instructions. Your treatment has been planned according to current medical practices, but problems sometimes occur. Call your health care provider if you have any problems or questions after your procedure. What can I expect after the procedure? After your procedure, you may: Feel sleepy for several hours. Feel clumsy and have poor balance for several hours. Feel forgetful about what happened after the procedure. Have poor judgment for several hours. Feel nauseous or vomit. Have a sore throat if you had a breathing tube during the procedure. Follow these instructions at home: For at least 24 hours after the procedure: Have a responsible adult stay with you. It is important to have someone help care for you until you are awake and alert. Rest as needed. Do not: ?Participate in activities in which you could fall or become injured. ?Drive. ?Use heavy machinery. ?Drink alcohol. ?Take sleeping pills or medicines that cause drowsiness. ?Make important decisions or sign legal documents. ?Take care of children on your own. Eating and drinking Follow the diet that is recommended by your health care provider. If you vomit, drink water, juice, or soup when you can drink without vomiting. Make sure you have little or no nausea before eating solid foods. General instructions Take aqbu-ugs-fhmpthp and prescription medicines only as told by your health care provider. If you have sleep apnea, surgery and certain medicines can increase your risk for breathing problems. Follow instructions from your health care provider about wearing your sleep device: ?Anytime you are sleeping, including during daytime naps. ?While taking prescription pain medicines, sleeping medicines, or medicines that make you drowsy. If you smoke, do not smoke without supervision. Keep all follow-up visits as told by your health care provider. This is important. Contact a health care provider if: You keep feeling nauseous or you keep vomiting. You feel light-headed. You develop a rash. You have a fever. Get help right away if: You have trouble breathing. Summary For several hours after your procedure, you may feel sleepy and have poor judgment. Have a responsible adult stay with you for at least 24 hours or until you are awake and alert. This information is not intended to replace advice given to you by your health care provider. Make sure you discuss any questions you have with your health care provider. Document Released: 11/12/2016 Document Revised: 10/21/2018 Document Reviewed: 11/12/2016 [email or web address] Patient Education 2020 [employer] 08/30/2022 14:06:06 AH - Post Axillary Block Instructions(CUSTOM) POST AXILLARY BLOCK The purpose of the procedure is to decrease postoperative pain from your arm surgery. You may have soreness at the injection site for 1-2 days. Your arm may be numb for 6-18 hours depending on the medication used and the density of the block. Please use extreme care with your operative arm and follow your postoperative instructions. Your arm may not perceive harmful heat, cold, or pressure sensations because of numbness. You must take precautions against these injuries while your arm s sensation is dulled. Begin your pain medicine before you regain sensation in your operative arm. Take your pain medication as needed and instructed. If you have any unusual problems or questions related to this procedure, please call anesthesia at . If after hours, please call [facility] at and ask for the anesthesia department. Follow Up Care 08/29/2022 09:30:59 With:MARIN DOSS DO, Orthopedic Address: [address] [place] [phone] When: Unknown Comments:CALL DR DIAZ OFFICE FOR A FOLLOW UP APPOINTMENT. CALL DR DOSS WITH ANY QUESTIONS OR CONCERNS. GO TO THE EMERGENCY ROOM WITH ANY URGENT CONCERNS. [facility] 08-30-2022 Summary of episod e note Discharge Instructions Thank you for allowing [facility] to assist you with your healthcare needs. The following is important discharge information regarding your hospital visit. Your Care Team ZHANG MUHAMMAD DO, DR. Your Diagnosis RIGHT WRIST OPEN REDUCTION INTERNAL FIXATION DISTAL RADIUS FRACTURE. What to do next Follow Up Appointments Follow Up with MARIN DOSS DO, Orthopedic When Why: CALL DR DIAZ OFFICE FOR A FOLLOW UP APPOINTMENT. CALL DR DOSS WITH ANY QUESTIONS OR CONCERNS. GO TO THE EMERGENCY ROOM WITH ANY URGENT CONCERNS. Where: [address] [place] [phone] Allergies penicillin (Anaphylactoid reaction) Medications Please ask your primary doctor or pharmacist before taking any other medication not listed, including over the counter drugs, herbal medications, vitamins and or supplements as they may interact with your home medications. What How Much When Instructions Last Dose Unchanged acetaminophen-hydrocodone (acetaminophen-hydrocodone 325 mg-5 mg oral tablet) 1 tab(s) by mouth Every 6 hours as needed for for pain May take 1-2 tablets / dose Unchanged doxycycline (doxycycline hyclate 100 mg oral tablet) TAKE 1 TABLET BY MOUTH TWICE A DAY FOR 7 DAYS Unchanged escitalopram (escitalopram 10 mg oral tablet) 1 tab(s) by mouth Every day Unchanged levothyroxine (levothyroxine 75 mcg (0.075 mg) oral tablet) 1 tab(s) by mouth Once a day before a meal Unchanged multivitamin (Multivitamin) 1 tab(s) by mouth Every day Please take this list to your next doctor s visit. Bring all medications you take, including over the counter medications, herbals and other supplements with you to your doctor s visit. Patients and families are reminded to discard old lists and to update any records with all medication providers or retail pharmacies. Medication Leaflets acetaminophen and hydrocodone (a SEET a MIN oh fen and suzan droe KOE done) Hycet, Lorcet, Lewis, Verdrocet, Vicodin, Xodol, Zamicet What is the most important information I should know about acetaminophen and hydrocodone? MISUSE OF OPIOID MEDICINE CAN CAUSE ADDICTION, OVERDOSE, OR . Keep the medication in a place where others cannot get to it. Taking opioid medicine during may cause life-threatening withdrawal symptoms in the . Fatal side effects can occur if you use opioid medicine with alcohol, or with other drugs that cause drowsiness or slow your breathing. Stop taking this medicine and call your doctor right away if you have skin redness or a rash that spreads and causes blistering and peeling. What is acetaminophen and hydrocodone? Acetaminophen and hydrocodone is a combination medicine used to relieve moderate to severe pain. Acetaminophen and hydrocodone contains an opioid medicine, and may be habit-forming. Acetaminophen and hydrocodone may also be used for purposes not listed in this medication guide. What should I discuss with my healthcare provider before taking acetaminophen and hydrocodone? You should not use this medicine if you are allergic to acetaminophen or hydrocodone, or if you have: severe asthma or breathing problems; or a blockage in your stomach or intestines. Tell your doctor if you have ever had: breathing problems, sleep apnea (breathing stops during sleep); liver disease; a drug or alcohol addiction; kidney disease; a head injury or seizures; urination problems; or problems with your thyroid, pancreas, or gallbladder. If you use opioid medicine while you are , your baby could become dependent on the drug. This can cause life-threatening withdrawal symptoms in the baby after it is born. Babies born dependent on opioids may need medical treatment for several weeks. Ask a doctor before using opioid medicine if you are . Tell your doctor if you notice severe drowsiness or slow breathing in the nursing baby. How should I take acetaminophen and hydrocodone? Follow all directions on your prescription label. Never take this medicine in larger amounts, or for longer than prescribed. An overdose can damage your liver or cause . Tell your doctor if you feel an increased urge to use more of this medicine. Never share this medicine with another person, especially someone with a history of drug abuse or addiction. MISUSE CAN CAUSE ADDICTION, OVERDOSE, OR . Keep the medicine in a place where others cannot get to it. Selling or giving away this medicine is against the law. Measure liquid medicine carefully. Use the dosing syringe provided, or use a medicine dose-measuring device (not a kitchen spoon). If you need surgery or medical tests, tell the doctor ahead of time that you are using this medicine. You should not stop using this medicine suddenly. Follow your doctor's instructions about tapering your dose. Store at room temperature away from moisture and heat. Keep track of your medicine. You should be aware if anyone is using it improperly or without a prescription. Do not keep leftover opioid medication. Just one dose can cause in someone using this medicine accidentally or improperly. Ask your pharmacist where to locate a drug take-back disposal program. If there is no take-back program, flush the unused medicine down the toilet. What happens if I miss a dose? Since this medicine is used for pain, you are not likely to miss a dose. Skip any missed dose if it is almost time for your next dose. Do not use two doses at one time. What happens if I overdose? Seek emergency medical attention or call the Poison Help line at . An overdose of this medicine can be fatal, especially in a child or other person using the medicine without a prescription. Overdose symptoms may include nausea, vomiting, sweating, severe drowsiness, pinpoint pupils, slow breathing, or no breathing. Your doctor may recommend you get naloxone (a medicine to reverse an opioid overdose) and keep it with you at all times. A person caring for you can give the naloxone if you stop breathing or don't wake up. Your caregiver must still get emergency medical help and may need to perform CPR (cardiopulmonary resuscitation) on you while waiting for help to arrive. Anyone can buy naloxone from a pharmacy or local health department. Make sure any person caring for you knows where you keep naloxone and how to use it. What should I avoid while taking acetaminophen and hydrocodone? Avoid driving or operating machinery until you know how this medicine will affect you. Dizziness or drowsiness can cause falls, accidents, or severe injuries. Do not drink alcohol. Dangerous side effects or could occur. Ask a doctor or pharmacist before using any other medicine that may contain acetaminophen (sometimes abbreviated as APAP). Taking certain medications together can lead to a fatal overdose. What are the possible side effects of acetaminophen and hydrocodone? Get emergency medical help if you have signs of an allergic reaction: hives; difficulty breathing; swelling of your face, lips, tongue, or throat. Opioid medicine can slow or stop your breathing, and may occur. A person caring for you should give naloxone and/or seek emergency medical attention if you have slow breathing with long pauses, blue colored lips, or if you are hard to wake up. In rare cases, acetaminophen may cause a severe skin reaction that can be fatal. This could occur even if you have taken acetaminophen in the past and had no reaction. Stop taking this medicine and call your doctor right away if you have skin redness or a rash that spreads and causes blistering and peeling. Call your doctor at once if you have: noisy breathing, sighing, shallow breathing, breathing that stops; a light-headed feeling, like you might pass out; liver problems--nausea, upper stomach pain, tiredness, loss of appetite, dark urine, melissa-colored stools, jaundice (yellowing of the skin or eyes); low cortisol levels-- nausea, vomiting, loss of appetite, dizziness, worsening tiredness or weakness; o high levels of serotonin in the body--agitation, hallucinations, fever, sweating, shivering, fast heart rate, muscle stiffness, twitching, loss of coordination, nausea, vomiting, diarrhea. Serious breathing problems may be more likely in older adults and in those who are debilitated or have wasting syndrome or chronic breathing disorders. Common side effects include: dizziness, drowsiness, feeling tired; nausea, vomiting, stomach pain; constipation; or headache. This is not a complete list of side effects and others may occur. Call your doctor for medical advice about side effects. You may report side effects to FDA at 9-856-KHV-4082. What other drugs will affect acetaminophen and hydrocodone? You may have breathing problems or withdrawal symptoms if you start or stop taking certain other medicines. Tell your doctor if you also use an antibiotic, antifungal medication, heart or blood pressure medication, seizure medication, or medicine to treat HIV or hepatitis C. Opioid medication can interact with many other drugs and cause dangerous side effects or . Be sure your doctor knows if you also use: cold or allergy medicines, bronchodilator asthma/COPD medication, or a diuretic ('water pill'); medicines for motion sickness, irritable bowel syndrome, or overactive bladder; other opioids--opioid pain medicine or prescription cough medicine; a sedative like Valium--diazepam, alprazolam, lorazepam, Xanax, Klonopin, Versed, and others; drugs that make you sleepy or slow your breathing--a sleeping pill, muscle relaxer, medicine to treat mood disorders or mental illness; drugs that affect serotonin levels in your body--a stimulant, or medicine for depression, Parkinson's disease, migraine headaches, serious infections, or nausea and vomiting. This list is not complete. Other drugs may affect acetaminophen and hydrocodone, including prescription and byho-dyz-yuozcwe medicines, vitamins, and herbal products. Not all possible interactions are listed here. Where can I get more information? Your doctor or pharmacist can provide more information about acetaminophen and hydrocodone. Remember, keep this and all other medicines out of the reach of children, never share your medicines with others, and use this medication only for the indication prescribed. Every effort has been made to ensure that the information provided by [employer] is accurate, up-to-date, and complete, but no guarantee is made to that effect. Drug information contained herein may be time sensitive. [employer] information has been compiled for use by healthcare practitioners and consumers in the [place] and therefore [employer] does not warrant that uses outside of the [place] are appropriate, unless specifically indicated otherwise. [employer] drug information does not endorse drugs, diagnose patients or recommend therapy. [employer] drug information is an informational resource designed to assist licensed healthcare practitioners in caring for their patients and/or to serve consumers viewing this service as a supplement to, and not a substitute for, the expertise, skill, knowledge and judgment of healthcare practitioners. The absence of a warning for a given drug or drug combination in no way should be construed to indicate that the drug or drug combination is safe, effective or appropriate for any given patient. [facility] does not assume any responsibility for any aspect of healthcare administered with the aid of information [facility] provides. The information contained herein is not intended to cover all possible uses, directions, precautions, warnings, drug interactions, allergic reactions, or adverse effects. If you have questions about the drugs you are taking, check with your doctor, nurse or pharmacist. Copyright 1034-8344 [facility] [employer]. Version: 16.03. Revision Date: 09/07/2020. Education Materials Nausea and Vomiting, Adult Nausea is feeling sick to your stomach or feeling that you are about to throw up (vomit). Vomiting is when food in your stomach is thrown up and out of the mouth. Throwing up can make you feel weak. It can also make you lose too much water in your body (get dehydrated). If you lose too much water in your body, you may: Feel tired. Feel thirsty. Have a dry mouth. Have cracked lips. Go pee (urinate) less often. Older adults and people with other diseases or a weak body defense system (immune system) are at higher risk for losing too much water in the body. If you feel sick to your stomach and you throw up, it is important to follow instructions from your doctor about how to take care of yourself. Follow these instructions at home: Watch your symptoms for any changes. Tell your doctor about them. Follow these instructions to care for yourself at home. Eating and drinking Take an ORS (oral rehydration solution). This is a drink that is sold at pharmacies and stores. Drink clear fluids in small amounts as you are able, such as: ? Water. ? Ice chips. ? Fruit juice that has water added (diluted fruit juice). ? Low-calorie sports drinks. Eat bland, mbby-ss-xntsoq foods in small amounts as you are able, such as: ? Bananas. ? Applesauce. ? Rice. ? Low-fat (lean) meats. ? [place]. ? Crackers. Avoid drinking fluids that have a lot of sugar or caffeine in them. This includes energy drinks, sports drinks, and soda. Avoid alcohol. Avoid spicy or fatty foods. General instructions Take byqr-opj-ctujhys and prescription medicines only as told by your doctor. Drink enough fluid to keep your pee (urine) pale yellow. Wash your hands often with soap and water. If you cannot use soap and water, use hand manager food beverage. Make sure that all people in your home wash their hands well and often. Rest at home while you get better. Watch your condition for any changes. Take slow and deep breaths when you feel sick to your stomach. Keep all follow-up visits as told by your doctor. This is important. Contact a doctor if: Your symptoms get worse. You have new symptoms. You have a fever. You cannot drink fluids without throwing up. You feel sick to your stomach for more than 2 days. You feel light-headed or dizzy. You have a headache. You have muscle cramps. You have a rash. You have pain while peeing. Get help right away if: You have pain in your chest, neck, arm, or jaw. You feel very weak or you pass out (faint). You throw up again and again. You have throw up that is bright red or looks like black coffee grounds. You have bloody or black poop (stools) or poop that looks like tar. You have a very bad headache, a stiff neck, or both. You have very bad pain, cramping, or bloating in your belly (abdomen). You have trouble breathing. You are breathing very quickly. Your heart is beating very quickly. Your skin feels cold and clammy. You feel confused. You have signs of losing too much water in your body, such as: ? Dark pee, very little pee, or no pee. ? Cracked lips. ? Dry mouth. ? Sunken eyes. ? Sleepiness. ? Weakness. These symptoms may be an emergency. Do not wait to see if the symptoms will go away. Get medical help right away. Call your local emergency services (911 in the [place] Do not drive yourself to the hospital. Summary Nausea is feeling sick to your stomach or feeling that you are about to throw up (vomit). Vomiting is when food in your stomach is thrown up and out of the mouth. Follow instructions from your doctor about eating and drinking to keep from losing too much water in your body. Take aiwf-ohq-epxhwwl and prescription medicines only as told by your doctor. Contact your doctor if your symptoms get worse or you have new symptoms. Keep all follow-up visits as told by your doctor. This is important. This information is not intended to replace advice given to you by your health care provider. Make sure you discuss any questions you have with your health care provider. Document Released: 01/08/2009 Document Revised: 11/14/2019 Document Reviewed: 12/31/[address] Patient Education 2020 [email or web address] How To Use an Incentive Spirometer An incentive spirometer is a tool that measures how well you are filling your lungs with each breath. Learning to take long, deep breaths using this tool can help you keep your lungs clear and active. This may help to reverse or lessen your chance of developing breathing (pulmonary) problems, especially infection. You may be asked to use a spirometer: After a surgery. If you have a lung problem or a history of smoking. After a long period of time when you have been unable to move or be active. If the spirometer includes an indicator to show the highest number that you have reached, your health care provider or respiratory therapist will help you set a goal. Keep a list (log) of your progress as told by your health care provider. What are the risks? Breathing too quickly may cause dizziness or cause you to pass out. Take your time so you do not get dizzy or light-headed. If you are in pain, you may need to take pain medicine before doing incentive spirometry. It is harder to take a deep breath if you are having pain. How to use your incentive spirometer 1. Sit up on the edge of your bed or on a chair. 2. Hold the incentive spirometer so that it is in an upright position. 3. Before you use the spirometer, breathe out normally. 4. Place the mouthpiece in your mouth. Make sure your lips are closed tightly around it. 5. Breathe in slowly and as deeply as you can through your mouth, causing the piston or the ball to rise toward the top of the chamber. 6. Hold your breath for 3 5 seconds, or for as long as possible. If the spirometer includes a success coach indicator, use this to guide you in breathing. Slow down your breathing if the indicator goes above the marked areas. 7. Remove the mouthpiece from your mouth and breathe out normally. The piston or ball will return to the bottom of the chamber. 8. Rest for a few seconds, then repeat the steps 10 or more times. Take your time and take a few normal breaths between deep breaths so that you do not get dizzy or light-headed. Do this every 1 2 hours when you are awake. 9. If the spirometer includes a goal marker to show the highest number you have reached (best effort), use this as a goal to work toward during each repetition. 10. After each set of 10 deep breaths, cough a few times. This will help to make sure that your lungs are clear. If you have an incision on your chest or abdomen from surgery, place a pillow or a rolled-up towel firmly against the incision when you cough. This can help to reduce pain from coughing. General tips When you become able to get out of bed, walk around often and continue to cough to help clear your lungs. Keep using the incentive spirometer until your health care provider says it is okay to stop using it. If you have been in the hospital, you may be told to keep using the spirometer at home. Contact a health care provider if: You are having difficulty using the spirometer. You have trouble using the spirometer as often as instructed. Your pain medicine is not giving enough relief for you to use the spirometer as told. You have a fever. You develop shortness of breath. Get help right away if: You develop a cough with bloody mucus from the lungs (bloody sputum). You have fluid or blood coming from an incision site after you cough. Summary An incentive spirometer is a tool that can help you learn to take long, deep breaths to keep your lungs clear and active. You may be asked to use a spirometer after a surgery, if you have a lung problem or a history of smoking, or if you have been inactive for a long period of time. Use your incentive spirometer as instructed every 1 2 hours while you are awake. If you have an incision on your chest or abdomen, place a pillow or a rolled-up towel firmly against your incision when you cough. This will help to reduce pain. This information is not intended to replace advice given to you by your health care provider. Make sure you discuss any questions you have with your health care provider. Document Released: 12/03/2007 Document Revised: 08/15/2018 Document Reviewed: 06/05/[address] Patient Education 2020 [email or web address] Radial Fracture A radial fracture is a break in the radius bone. The radius is a bone in the forearm, on the same side as the thumb. The forearm is the part of the arm that is between the elbow and the wrist. A radial fracture near the wrist (distal radialfracture) is the most common type of broken arm. A fracture can also occur near the elbow (radial head fracture). What are the causes? The most common cause of a radial fracture is falling with the arm outstretched. Other causes include: An accident, such as a car or bike accident. A hard, direct hit to the forearm. What increases the risk? You may be at greater risk for a radial fracture if you: Are female. Are an older adult. Play contact sports. Have a condition that causes your bones to become thin and brittle (osteoporosis). What are the signs or symptoms? A radial fracture causes pain immediately after the injury. Other signs and symptoms may include: An abnormal bend or bump in the arm (deformity). Swelling. Bruising. Numbness or tingling in your arm and hand. Limited movement of your arm and hand. How is this diagnosed? This condition may be diagnosed based on: Your symptoms and medical history. A physical exam. An X-ray. How is this treated? Treatment depends on how severe your fracture is, where it is, and how the pieces of the broken bone line up with each other (alignment). The first step may be for you to wear a temporary splint for a few days, until your swelling goes down. After the swelling goes down, you may get a cast, get a different type of splint, or have surgery. If your broken bone is in good alignment, you will need to wear a splint or cast for up to 6 weeks. If your broken bone is not aligned (is displaced), your health care provider will need to align the bone pieces. After alignment, you will need to wear a splint or cast for up to 6 weeks. To align your broken bone, your health care provider may: ? Move the bones back into position without surgery (closed reduction). ? Perform surgery to align the fracture and fix the bone pieces into place with metal screws, plates, or wires (open reduction and internal fixation, ORIF). ? Perform surgery to align the fracture and fix the bone pieces into place with pins that are attached to a stabilizing bar outside your skin (external fixation). Treatment may also include: Having your cast changed after 2 3 weeks. Physical therapy. Follow-up visits and X-rays to make sure you are healing. Follow these instructions at home: If you have a splint: Wear it as told by your health care provider. Remove it only as told by your health care provider. Loosen the splint if your fingers tingle, become numb, or turn cold and blue. Keep the splint clean and dry. If you have a cast: Do not stick anything inside the cast to scratch your skin. Doing that increases your risk for infection. Check the skin around the cast every day. Tell your health care provider about any concerns. You may put lotion on dry skin around the edges of the cast. Do not put lotion on the skin underneath the cast. Keep the cast clean and dry. Bathing Do not take baths, swim, or use a hot tub until your health care provider approves. Ask your health care provider if you may take showers. You may only be allowed to take sponge baths. If your splint or cast is not waterproof: ? Do not let it get wet. ? Cover it with a watertight covering when you take a bath or a shower. Activity Do not lift anything with your injured arm. Do not use the injured arm to support your body weight until your health care provider says that you can. Ask your health care provider what activities are safe for you during recovery, and ask what activities you need to avoid. Managing pain, stiffness, and swelling If directed, put ice on painful areas: ? If you have a removable splint, remove it as told by your health care provider. ? Put ice in a plastic bag. ? Place a towel between your skin and the bag, or between your cast and the bag. ? Leave the ice on for 20 minutes, 2 3 times a day. Move your fingers often to avoid stiffness and to lessen swelling. Raise (elevate) your arm above the level of your heart while you are sitting or lying down. General instructions Do not put pressure on any part of the cast or splint until it is fully hardened, if applicable. This may take several hours. Take jqrg-vtr-aurvabu and prescription medicines only as told by your health care provider. Do not drive until your health care provider approves. You should not drive or use heavy machinery while taking prescription pain medicine. Do not use any products that contain nicotine or tobacco, such as cigarettes and e-cigarettes. These can delay bone healing. If you need help quitting, ask your health care provider. Keep all follow-up visits as told by your health care provider. This is important. Contact a health care provider if you have: Pain that does not get better with medicine. Swelling that gets worse. A bad smell coming from your cast. Get help right away if: You cannot move your fingers. You have severe pain. Your fingers or your hand: ? Become numb, cold, or pale. ? Turn a bluish color. Summary A radial fracture is a break in the radius bone. The radius is in the forearm, on the same side as the thumb. Treatment depends on how severe your fracture is, where it is, and how the pieces of the broken bone line up with each other. A splint or cast may be needed to help the fracture heal. A more severe break may require surgery. This information is not intended to replace advice given to you by your health care provider. Make sure you discuss any questions you have with your health care provider. Document Released: 01/03/2007 Document Revised: 07/17/2018 Document Reviewed: 07/17/2018 [email or web address] Patient Education 2020 [email or web address] Monitored Anesthesia Care, Care After These instructions provide you with information about caring for yourself after your procedure. Your health care provider may also give you more specific instructions. Your treatment has been planned according to current medical practices, but problems sometimes occur. Call your health care provider if you have any problems or questions after your procedure. What can I expect after the procedure? After your procedure, you may: Feel sleepy for several hours. Feel clumsy and have poor balance for several hours. Feel forgetful about what happened after the procedure. Have poor judgment for several hours. Feel nauseous or vomit. Have a sore throat if you had a breathing tube during the procedure. Follow these instructions at home: For at least 24 hours after the procedure: Have a responsible adult stay with you. It is important to have someone help care for you until you are awake and alert. Rest as needed. Do not: ? Participate in activities in which you could fall or become injured. ? Drive. ? Use heavy machinery. ? Drink alcohol. ? Take sleeping pills or medicines that cause drowsiness. ? Make important decisions or sign legal documents. ? Take care of children on your own. Eating and drinking Follow the diet that is recommended by your health care provider. If you vomit, drink water, juice, or soup when you can drink without vomiting. Make sure you have little or no nausea before eating solid foods. General instructions Take [id number] and prescription medicines only as told by your health care provider. If you have sleep apnea, surgery and certain medicines can increase your risk for breathing problems. Follow instructions from your health care provider about wearing your sleep device: ? Anytime you are sleeping, including during daytime naps. ? While taking prescription pain medicines, sleeping medicines, or medicines that make you drowsy. If you smoke, do not smoke without supervision. Keep all follow-up visits as told by your health care provider. This is important. Contact a health care provider if: You keep feeling nauseous or you keep vomiting. You feel light-headed. You develop a rash. You have a fever. Get help right away if: You have trouble breathing. Summary For several hours after your procedure, you may feel sleepy and have poor judgment. Have a responsible adult stay with you for at least 24 hours or until you are awake and alert. This information is not intended to replace advice given to you by your health care provider. Make sure you discuss any questions you have with your health care provider. Document Released: 11/12/2016 Document Revised: 10/21/2018 Document Reviewed: 11/12/[address] Patient Education 2020 [email or web address] POST AXILLARY BLOCK The purpose of the procedure is to decrease postoperative pain from your arm surgery. You may have soreness at the injection site for 1-2 days. Your arm may be numb for 6-18 hours depending on the medication used and the density of the block. Please use extreme care with your operative arm and follow your postoperative instructions. Your arm may not perceive harmful heat, cold, or pressure sensations because of numbness. You must take precautions against these injuries while your arm s sensation is dulled. Begin your pain medicine before you regain sensation in your operative arm. Take your pain medication as needed and instructed. If you have any unusual problems or questions related to this procedure, please call anesthesia at . If after hours, please call [facility] at and ask for the anesthesia department. Additional Information VACCINATE! IT SAVES LIVES! Members of the community who have not yet received the COVID-19 vaccine and would like to receive it can visit one of [facility] vaccine clinics. There are many vaccine clinic locations within the [facility]. For locations and available times, please visit [email or web address] It is important to note that some COVID mobile vaccine clinics are held outdoors and may be canceled in rainy or stormy conditions. To learn more about pediatric vaccinations (ages 5-11), we invite you to visit the [facility] webpage. [email or web address] To learn more about the COVID-19 vaccine, we invite you to visit the [facility] website for a list of frequently asked questions. [email or web address] [facility] Patient Portal Access Instructions: Stay connected with your healthcare team and access your personal medical information anytime with the [facility] [facility] Patient Portal.If you would like a full copy of your medical records, please contact the [facility] Medical Records Department, Sunday through Sunday between 8a.m. and 4:30p.m. Please follow the directions below to access the portal: 1.Access the email account you provided upon registration to the hospital.2.Look for an invitation email from [facility].3.Open the email and access the invitation link: Accept Invitation to [facility].Fill in the required ferreira to create your account. Sign into www.Social Touch with your username and password that you created in the above steps to stay up to date. You can then view a summary of results, a summary of your visits, and the ability to download your summaries to your computer or send the information securely to a physician. Remember that your healthcare information is confidential, so carefully consider who you will allow to register on the [employer] Patient Portal for access to your information. You can also access the [employer] Patient Portal on the [employer] jose. Simply click on Health Records under Health Data and then click on the [employer] logo. HOW TO SAFELY DISPOSE OF PRESCRIPTION MEDICATIONS Please use one of the following methods to safely dispose of your unused medications. 1.Use a drug disposal kit: the drug disposal pouch allows you to safely discard your old and unused drugs. Ask your nurse to give you one when you are discharged.2.Visit a local take-back location: Many local pharmacies and police departments have programs that collect old and unwanted prescription drugs. Call your local pharmacy or go to http://[employer].Citizengine/3J8Jc2h to find one close to you.3.Make use of household items: Use cat litter or old coffee grounds to dispose medications if other options are not available. Mix your drugs with these household products, seal them in an airtight container and throw it into the garbage. Call [facility]: [phone] to be sure your drugs can be disposed of in this way. Some medicines may require a different approach.4.Never flush your medications down the toilet. IF YOU HAVE BEEN PRESCRIBED AN OPIOID FOR PAIN If you have been prescribed an opioid (such as hydrocodone, oxycodone or morphine), it is critical to understand the possible side effects and risks of opioid pain medications. Even when taken as directed, opioids can have several side effects including: Tolerance, meaning you might need to take more of a medication for the same pain relief. Nausea, vomiting and/or constipation. Sleepiness, dizziness, dry mouth, confusion, depression or itching. Physical dependence, meaning you have withdrawal symptoms when a medication is stopped, can develop within a few days. KNOW YOUR RESPONSIBILITIES It is important to know exactly how much and how often to take the opioid pain medications you are prescribed. Never take opioids in higher amounts or more often than prescribed. Do not combine opioids with alcohol or other drugs that cause drowsiness, such as benzodiazepines, also known as benzos, including diazepam and alprazolam, muscle relaxants or sleep aids. Never sell or share prescription opioids. This is illegal. Store opioids in a secure place and out of reach of others (including children, family, friends and visitors). The last page of this document has been signed and retained as a CHART COPY. Signatures Patient Education Materials Nausea and Vomiting, Adult, Hjnk-ie-Hbwc How to Use an Incentive Spirometer Radial Fracture Monitored Anesthesia Care, Care After AH - Post Axillary Block Instructions(CUSTOM) Medication Leaflets acetaminophen-hydrocodone 300 mg-5 mg oral tablet My discharge plan and instructions have been reviewed and explained to me and I,JENNIFER RICHARD understand my current condition and have read and understand these discharge instructions. I have received a written copy of the plan/instructions. If I have questions, I am aware that I should contact my doctor. 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/Casino Dealer Signature: Date/Time: Relationship to Patient: Witness Name/Signature: Date/Time: [facility] 08-30-2022 Anesthesiology Consult note Patient: JENNIFER RICHARD Age: 67 years Sex: Female : 1955 Associated Diagnoses: None Author: AZAM RONDON APRN-SUBSTANCE ABUSE SERVICES DIRECTOR Assessment Postanesthesia assessment Vitals: Vital signs from flowsheet : Vital Signs 08/30/2022 13:35 EST Heart Rate Monitored 55 bpm bpm Respiratory Rate - Anes 14 br/min br/min Systolic Blood Pressure Non-Invasive 101 mmHg mmHg Diastolic Blood Pressure Non-Invasive 62 mmHg mmHg 08/30/2022 13:30 EST Heart Rate Monitored 56 bpm bpm Respiratory Rate - Anes 15 br/min br/min Systolic Blood Pressure Non-Invasive 103 mmHg mmHg Diastolic Blood Pressure Non-Invasive 59 mmHg mmHg 08/30/2022 13:25 EST Heart Rate Monitored 57 bpm bpm Respiratory Rate - Anes 15 br/min br/min Systolic Blood Pressure Non-Invasive 95 mmHg mmHg Diastolic Blood Pressure Non-Invasive 57 mmHg mmHg 08/30/2022 13:20 EST Heart Rate Monitored 56 bpm bpm Respiratory Rate - Anes 16 br/min br/min Systolic Blood Pressure Non-Invasive 85 mmHg mmHg Diastolic Blood Pressure Non-Invasive 51 mmHg mmHg 08/30/2022 13:15 EST Temperature (Route Not Specified) 36 DegC DegC Heart Rate Monitored 55 bpm bpm Respiratory Rate - Anes 16 br/min br/min Systolic Blood Pressure Non-Invasive 94 mmHg mmHg Diastolic Blood Pressure Non-Invasive 58 mmHg mmHg 08/30/2022 13:10 EST Heart Rate Monitored 55 bpm bpm Respiratory Rate - Anes 17 br/min br/min Systolic Blood Pressure Non-Invasive 96 mmHg mmHg Diastolic Blood Pressure Non-Invasive 62 mmHg mmHg 08/30/2022 13:05 EST Heart Rate Monitored 55 bpm bpm Respiratory Rate - Anes 16 br/min br/min Systolic Blood Pressure Non-Invasive 88 mmHg mmHg Diastolic Blood Pressure Non-Invasive 57 mmHg mmHg 08/30/2022 13:00 EST Temperature (Route Not Specified) 36 DegC DegC Heart Rate Monitored 52 bpm bpm Respiratory Rate - Anes 15 br/min br/min Systolic Blood Pressure Non-Invasive 90 mmHg mmHg Diastolic Blood Pressure Non-Invasive 52 mmHg mmHg 08/30/2022 12:55 EST Heart Rate Monitored 53 bpm bpm Respiratory Rate - Anes 14 br/min br/min Systolic Blood Pressure Non-Invasive 92 mmHg mmHg Diastolic Blood Pressure Non-Invasive 56 mmHg mmHg 08/30/2022 12:50 EST Heart Rate Monitored 54 bpm bpm Respiratory Rate - Anes 13 br/min br/min Systolic Blood Pressure Non-Invasive 102 mmHg mmHg Diastolic Blood Pressure Non-Invasive 61 mmHg mmHg 08/30/2022 12:45 EST Temperature (Route Not Specified) 36 DegC DegC Heart Rate Monitored 56 bpm bpm Respiratory Rate - Anes 12 br/min br/min Systolic Blood Pressure Non-Invasive 109 mmHg mmHg Diastolic Blood Pressure Non-Invasive 63 mmHg mmHg 08/30/2022 12:40 EST Heart Rate Monitored 57 bpm bpm Respiratory Rate - Anes 15 br/min br/min 08/30/2022 12:35 EST Heart Rate Monitored 67 bpm bpm Respiratory Rate - Anes 20 br/min br/min Systolic Blood Pressure Non-Invasive 120 mmHg mmHg Diastolic Blood Pressure Non-Invasive 69 mmHg mmHg 08/30/2022 12:30 EST Temperature (Route Not Specified) 36 DegC DegC Heart Rate Monitored 66 bpm bpm Respiratory Rate - Anes 5 br/min br/min Systolic Blood Pressure Non-Invasive 141 mmHg mmHg Diastolic Blood Pressure Non-Invasive 75 mmHg mmHg 08/30/2022 12:10 EST Apical Heart Rate 72 bpm Respiratory Rate 14 br/min 08/30/2022 11:05 EST Temperature Temporal Artery 36.3 DegC Apical Heart Rate 63 bpm Respiratory Rate 14 br/min Systolic Blood Pressure Non-Invasive 130 mmHg Diastolic Blood Pressure Non-Invasive 79 mmHg , Measurements from flowsheet . Mental status: alert & oriented x 4. Respiratory function: respirations are non-labored. Respiratory support: none. CV function: Normal rate. Cardiovascular support: none. Pain. Nausea status: see nursing documentation of medications. Postoperative hydration status: within normal limits. Digitally Signed by AZAM RONDON on 08/30/2022 01:46 PM [facility] 08-30-2022 Note ORIGINAL Images acquired, not reported on this accession number. [facility] 08-30-2022 Note ORIGINAL Images acquired, not reported on this accession number. [facility] 08-30-2022 Anesthesiology Consult note Patient: JENNIFER RICHARD Age: 67 years Sex: Female : 1955 Associated Diagnoses: None Author: AZAM RONDON Preoperative Information Time of last food or liquid consumption: 08/30/2022 00:00:00 Anesthesia history Patient's history: negative. Family's history: negative. Health Status Allergies: Allergic Reactions (Selected) Severity Not Documented Penicillin- Anaphylactoid reaction., Allergies (1) ActiveReaction penicillinAnaphylactoid reaction Current medications: (Selected) Inpatient Medications Ordered LR 1000 mL: 20 mL/hr, Intravenous, Stop: 08/31/22 22:56:00 EST Documented Medications Documented Multivitamin: 1 tab(s), Oral, Daily, 0 Refill(s) acetaminophen-hydrocodone 325 mg-5 mg oral tablet: 1 tab(s), Oral, q6h, May take 1-2 tablets / dose, PRN: for pain, 12 tab(s), 0 Refill(s) doxycycline hyclate 100 mg oral tablet: TAKE 1 TABLET BY MOUTH TWICE A DAY FOR 7 DAYS escitalopram 10 mg oral tablet: 10 mg, 1 tab(s), Oral, Daily, 0 Refill(s) levothyroxine 75 mcg (0.075 mg) oral tablet: 75 mcg, 1 tab(s), Oral, qDayAC, 0 Refill(s), Medications (1) Active Scheduled: (0) Continuous: (1) Lactated Ringers 1000 mL 1,000 mL, Intravenous, 20 mL/hr PRN: (0) Problem list: Active Problems (1) No Chronic Problems Histories Past Medical History: No active or resolved past medical history items have been selected or recorded. Family History: Cancer Father Hypertension Mother CHF - Congestive heart failure Mother Hyperlipidemia Mother Colon cancer Father Procedure history: Bunionectomy ([id number]). Comments: 08/30/2022 11:02 Jw Dubois RN BILATERAL 1998 Neuroma ([id number]). Comments: 08/30/2022 11:03 Jw Dubois RN REMOVAL FROM LEFT ARM Cataract ([id number]). Comments: 08/30/2022 11:04 Jw Dubois RN BOTH EYES 2021 Social History Social & Psychosocial Habits Alcohol 08/29/2022 Use: Past Substance Abuse 08/29/2022 Use: Never Tobacco 08/29/2022 Tobacco Use: Never (less than 100 in l Home/Environment 08/29/2022 Domestic Concerns None Lives In Single level home Marital Status of Patient if Patient Independent Adult: Unmarried Nutrition/Health 08/29/2022 Type of diet: GF, Regular, Vegetarian Eating Difficulties None . Physical Examination Vital Signs 08/30/2022 12:40 EST Heart Rate Monitored 57 bpm bpm Respiratory Rate - Anes 15 br/min br/min 08/30/2022 12:35 EST Heart Rate Monitored 67 bpm bpm Respiratory Rate - Anes 20 br/min br/min Systolic Blood Pressure Non-Invasive 120 mmHg mmHg Diastolic Blood Pressure Non-Invasive 69 mmHg mmHg 08/30/2022 12:30 EST Heart Rate Monitored 66 bpm bpm Respiratory Rate - Anes 5 br/min br/min Systolic Blood Pressure Non-Invasive 141 mmHg mmHg Diastolic Blood Pressure Non-Invasive 75 mmHg mmHg 08/30/2022 12:10 EST Apical Heart Rate 72 bpm Respiratory Rate 14 br/min 08/30/2022 11:05 EST Temperature Temporal Artery 36.3 DegC Apical Heart Rate 63 bpm Respiratory Rate 14 br/min Systolic Blood Pressure Non-Invasive 130 mmHg Diastolic Blood Pressure Non-Invasive 79 mmHg Vital Signs(last 24 hrs) Last Charted Heart Rate [id number] bpm (AUG 30 12:40) Resp Rate 14 br/min (AUG 30 12:10) CBP809 mmHg (AUG 30 12:35) DBP69 mmHg (AUG 30 12:35) Measurements from flowsheet : Measurements 08/30/2022 11:05 EST Height 161 cm Height in inches 63.4 inch(es) Admission Weight 70.5 kg Weight Lbs 155.1 lb Harmony Body Weight 53.29 kg Admission Body Mass Index 27.2 m2 08/29/2022 10:30 EST Height 161 cm Admission Weight 70.5 kg Weight Method Stated Harmony Body Weight 53.29 kg Pain assessment: Pain Assessment 08/30/2022 11:05 EST Primary Pain Intensity 0 Pain Scale Type 0-10 Pain scale . General: Alert and oriented. Airway: Normal temporomandibular joint mobility, Normal mouth, Normal neck range of motion. Mallampati classification: II (soft palate, fauces, uvula visible). Dentition Evaluation: Denies loose/chipped teeth. Respiratory: Respirations are non-labored. Cardiovascular: Normal rate. Neurologic: Alert, Oriented, recent concussion with her fall. she doest believe she lost consciousness. Review / Management Results review: No qualifying data available , Lab results 08/30/2022 12:42 EST SN - CAt - Case Attendee SN - CAt - Case Attendee SN - CAt - Role Performed Ignition Mechanic 08/30/2022 12:42 EST SN - CTm - Surgery Start 08/30/2022 12:40 08/30/2022 12:40 EST Heart Rate Monitored 57 bpm bpm Respiratory Rate - Anes 15 br/min br/min Oxygen Saturation 100 % % 08/30/2022 12:35 EST Heart Rate Monitored 67 bpm bpm Respiratory Rate - Anes 20 br/min br/min Systolic Blood Pressure Non-Invasive 120 mmHg mmHg Diastolic Blood Pressure Non-Invasive 69 mmHg mmHg Oxygen Saturation 100 % % 08/30/2022 12:30 EST Heart Rate Monitored 66 bpm bpm Respiratory Rate - Anes 5 br/min br/min Systolic Blood Pressure Non-Invasive 141 mmHg mmHg Diastolic Blood Pressure Non-Invasive 75 mmHg mmHg Oxygen Saturation 95.7 % % clindamycin 600 mg mg 08/30/2022 12:10 EST Apical Heart Rate 72 bpm Respiratory Rate 14 br/min Time Out Procedure Verified Time Out Procedure Site Verified Yes Time Out Procedure Site Marked Yes Time Out Correct Patient Position Yes Respirations Unlabored Respiratory Pattern Regular Oxygen Saturation 94 % Level of Consciousness Alert Affect/Behavior Appropriate, Calm, Cooperative Orientation Oriented x 4 Consent Form Signed Yes Bedside Procedure Nerve Block Provider #1 Bedside Time Out AZAM RONDON APRN-SUBSTANCE ABUSE SERVICES DIRECTOR Provider #2 Bedside Time Out Hanna Cooper RN NPO Status Maintained Allergy Band on and Verified Yes Patient ID Band on and Verified Yes Anesthesia Consent Signed Yes 08/30/2022 12:09 EST SN - XI - X-Ray Type C-Arm 08/30/2022 12:08 EST SN - Irl - Irrigant Normal Saline SN - IrI - Volume In 1,000 mL SN - IrI - Volume Out 1,000 mL 08/30/2022 12:08 EST SN - SP - Prep Agents Chloraprep SN - SP - HR - Method N/A 08/30/2022 12:07 EST SN - PP - Body Position Supine Standard Intra-op 08/30/2022 12:06 EST SN - PTCare - Anti-thromboembolism Anna Sequential Compression Device (SCD) 08/30/2022 12:06 EST SN - Assess - LOC Alert, Awake SN - Assess - Orientation Oriented X 3 SN - Assess - Post-op Skin Integrity Intact/Dry SN - Assess - Abnormality Location LEFT FOREHEAD SN - Assess - Abnormality Type SCAB 08/30/2022 12:06 EST [place] History and Physical History and Physical Update Note 08/30/2022 12:04 EST SN - GCD - ASA Class 2 SN - GCD - Post-operative Diagnosis OTHER FRACTURES OF LOWER END OF RIGHT RADIUS, CLOSED FRACTURE SN - GCD - Case Level Level 4 08/30/2022 12:03 EST SN - DRS - Site and Details RIGHT WRIST PROCEDURE SITE SN - DRS - Immobilization Devices SPLINT FIBERGLASS [id number] 1RL/EA [id number] 08/30/2022 12:01 EST SN - Cul - Culture Type No Specimen per Surgeon 08/30/2022 11:59 EST SN - CAt - Case Attendee SN - CAt - Case Attendee SN - CAt - Case Attendee SN - CAt - Case Attendee SN - CAt - Case Attendee SN - CAt - Case Attendee SN - CAt - Case Attendee SN - CAt - Case Attendee SN - CAt - Case Attendee SN - CAt - Case Attendee SN - CAt - Role Performed SUBSTANCE ABUSE SERVICES DIRECTOR SN - CAt - Role Performed Kettle Skimmer 1 SN - CAt - Role Performed Scrub 1 SN - CAt - Role Performed Concrete Mixer Loader Truck Mounted 1 SN - CAt - Role Performed X-Ray Tech 08/30/2022 11:58 EST SN - CAt - Case Attendee SN - CAt - Case Attendee SN - CAt - Role Performed Primary Surgeon 08/30/2022 11:58 EST SN - Proc - Anesthesia Type Axillary Block, MAC SN - Proc - Actual Procedure OPEN REDUCTION INTERNAL FIXATION RIGHT DISTAL RADIUS FRACTURE 08/30/2022 11:20 EST SN - Preop - CTm Pt in SDS Room 08/30/2022 10:56 SN - Preop - CTm Pt Ready for OR/Proced 08/30/2022 11:20 08/30/2022 11:19 EST Hand Left 08/30/2022 20 gauge Peripheral IV Activity: Insert new site Peripheral IV Dressing Condition: Clean, Dry, Intact Peripheral IV Dressing Activity: Applied Peripheral IV Line Status/Patency: Flushes easily Peripheral IV Site Condition: No complications Peripheral IV Number of Attempts: 1 Lactated Ringers Injection Begin Bag 1,000 mL mL 08/30/2022 11:05 EST Privacy Restrictions Requested None Height 161 cm Height in inches 63.4 inch(es) Admission Weight 70.5 kg Weight Lbs 155.1 lb Harmony Body Weight 53.29 kg Admission Body Mass Index 27.2 m2 Temperature Temporal Artery 36.3 DegC Apical Heart Rate 63 bpm Respiratory Rate 14 br/min Systolic Blood Pressure Non-Invasive 130 mmHg Diastolic Blood Pressure Non-Invasive 79 mmHg Primary Pain Intensity 0 Pain Scale Type 0-10 Pain scale Monitor Alarms On and Limits Checked Heart Rhythm Regular Oxygen Therapy Room air Oxygen Saturation 98 % Abdomen Description Non-distended Abdomen Palpation Non-Tender Bowel Sounds All Quadrants Present Urinary Elimination Voiding, no difficulties Skin Temperature Warm Skin Description Normal for ethnicity Skin Integrity Intact Mucous Membrane Color Mccaskill IV Present Present Characteristics of Speech Clear Level of Consciousness Alert Strength All Extremities Strong Tone All Extremities Normal Right Upper Extremity Sensation Numbness, Tingling Affect/Behavior Appropriate, Calm, Cooperative Orientation Oriented x 4 Sensory Deficits None Sleep Apnea Snore No Sleep Apnea Tired No Sleep Apnea Obstruction No Sleep Apnea Score 1 High Risk for Sleep Apnea No Diagnosed With Sleep Apnea No Allergies Yes Consent Form Signed Yes Patient Dressed In Hospital gown History & Physical Update On Chart Yes History & Physical On Chart Yes Obstructive Sleep Apnea Assess Completed Yes Orientation Assessment Oriented x 4 Safety Brochure Information Reviewed Yes [facility] [facility] [employer] Video Viewed No Teaching Evaluation Verbalizes/Nonverbally indicates understanding Belongings At Bedside Pants, Shoes, Socks, T-shirt, Undergarments Activity Status ADL Awake, Resting Assistive Device None SCD On/Re-applied bilateral knee high NPO Status Maintained Standard Safety ID band on, Allergy Band on, Call device within reach, Bed in low position, Wheels locked, Upper/Half-Length side-rails up, Phone within reach, personal items within reach Demonstrates Correct Call Light Use Yes Allergy Band on and Verified Yes Patient ID Band on and Verified Yes Implants Verified Yes Pacemaker/AICD Verified Yes Anesthesia Consent Signed Yes Blood Consent Signed Yes Last Fluid Intake 08/29/2022 18:00 Last Food Intake 08/29/2022 18:00 Last Void 08/30/2022 11:08 Personal Devices, Patient Valuables None Anesthesia/Transfusions None Admission Note-Nursing Same Day Patient History (Modified) 08/29/2022 10:30 EST Designated Person #1 We May Share NATALIE DOUGLASS [phone] Designated Person #1 Relationship Daughter Height 161 cm Admission Weight 70.5 kg Weight Method Stated Harmony Body Weight 53.29 kg Status No, per patient Sleep Apnea Pressure No Sleep Apnea BMI No Sleep Apnea Age Yes Sleep Apnea Neck No Sleep Apnea Gender No Advanced Directives Yes Advance Directive Type [place] Durable Power of Religious Education Coordinator for [place], [place] Declaration (Living Will) Advance Directive Location Patient instructed to bring in copy Infectious Disease Symptoms Headache Infectious Disease Recent Exposure No Alcohol and Drug Use No Employee of Institutional Living No Health Care Employee No History of Exposure to TB No History of Positive Chest X-Ray for TB No History of Positive TB Skin Test No Homeless No Known Immunosuppression No Recent Immigrant No Resident of Institutional Living No Bloody Sputum No Fatigue No Fever No Loss of Appetite No Night Sweats No Persistent Cough > 3 Weeks No Weight Loss No Individuals Taught Patient Learning Readiness Willing to learn Barriers to Learning None evident Teaching Method Explanation Preferred Written Language Indonesian Preferred Spoken Language Indonesian Pre Procedure/Surgery Education Appropriate expectations, Date/Time of procedure/surgery, Hospital gown requirement worn to OR, Leave valuables, jewelry, wedding ring at home, NPO, Responsible cryogenic transport driver for discharge Procedure/Surgical Teaching Evaluation Verbalizes/Nonverbally indicates understanding Information Given by Patient Patient's Current Physicians Patient's Current Physicians Discharge To, Anticipated Home with family care Prev Test Positive/Diagnosis w/COVID-19 No Current Quarantine/Isolated any Illness No Any Contact with Sick Animals/Birds No Traveled Anywhere in Last 30 Days No Lost Weight Unintentionally Recently No Eat Poorly Due to Decreased Appetite No Total MST Score 0 No Admission Note-Nursing Date\Time Correction . Assessment and Plan [place] [employer] Anesthesiologists (ASA) physical status classification: Class II. Anesthetic Preoperative Plan Anesthetic technique: General. Postoperative pain management: axillary block. Informed consent: signed by patient. Digitally Signed by AZAM RONDON on 08/30/2022 12:53 PM [facility] 08-30-2022 Note Date of Service 08/30/22 History and Physical Update I have examined the patient; reviewed the History and Physical and there are no changes to the History and Physical unless noted below. Digitally Signed by MARIN DOSS DO on 08/30/2022 12:06 PM [facility] 12-10-2014 History of Past i llness Narrative Problem Noted Date Resolved Date Special screening for malignant neoplasms, colon 12/10/2014 12/10/2014 ASCUS with positive high risk HPV 08/30/2011 12/21/2014 Other and unspecified hyperlipidemia 04/17/2006 07/19/2011 documented as of this encounter (statuses as of 10/05/2022) [facility] History of Past illness Narrative* Problem Noted Date Resolved Date Special screening for malignant neoplasms, colon 12/10/2014 12/10/2014 ASCUS with positive high risk HPV 08/30/2011 12/21/2014 Other and unspecified hyperlipidemia 04/17/2006 07/19/2011 documented as of this encounter (statuses as of 10/16/2022) [facility] History of Past illness Narrative* Problem Noted Date Resolved Date Special screening for malignant neoplasms, colon 12/10/2014 12/10/2014 ASCUS with positive high risk HPV 08/30/2011 12/21/2014 Other and unspecified hyperlipidemia 04/17/2006 07/19/2011 documented as of this encounter (statuses as of 11/15/2022) [facility] History of Past illness Narrative* Problem Noted Date Resolved Date Special screening for malignant neoplasms, colon 12/10/2014 12/10/2014 ASCUS with positive high risk HPV 08/30/2011 12/21/2014 Other and unspecified hyperlipidemia 04/17/2006 07/19/2011 documented as of this encounter (statuses as of 12/15/2022) [facility] History of Past illness Narrative* Problem Noted Date Diagnosed Date Resolved Date Special screening for malign ant neoplasms, colon 12/10/2014 12/10/2014 ASCUS with positive high risk HPV 08/30/2011 12/21/2014 Other and unspecified hyperlipidemia 04/17/2006 07/19/2011 documented as of this encounter (statuses as of 03/30/2023) [facility] No data available for this section [facility] Evaluation note* 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 documented in this encounter [facility]* 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 Facial weakness documented in this encounter [facility]* Diagnosis Cognitive impairment- Primary Unspecified persistent mental disorders due to conditions classified elsewhere documented in this encounter [facility]* 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 Facial weakness documented in this encounter [facility] Summary Purpose Family History No Family History Records FoundNo Family History Records FoundNo Family History Records FoundNo Family History Records FoundNo Family History Records Found Advance Directives No Advanced Directives Records FoundNo Advanced Directives Records FoundNo Advanced Directives Records FoundNo Advanced Directives Records FoundNo Advanced Directives Records Found Reason for Referral Specialty Diagnoses / Procedures Referred By Ruddy t Referred To Contact MR IMAGING Diagnoses Cognitive impairment Procedures MRI 3D POST PROCESSING 3D RENDERING W/INTERP&POSTPROC DIFF WORK STATION Reid Urrutia MD, [address] [place] [address] Mr Imaging Referral ID Status Reason Start Date Expiration Date Visits Requested Visits Authorized [id number] Pending Review Auto-Generat ed Referral 12/14/2022 01/13/2024 1 1 Specialty Diagnoses / Procedures Referred By Contac t Referred To Contact [facility] Diagnoses 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 Procedures CONSULT TO ELECTROMECHANISMS DESIGN DRAFTER OCCUPATIONAL THERAPY EVAL HIGH COMPLEX 60 MINS David Samayoa Jr., MD [address] [place] [address] [facility] [place] [address] [place] [address] Referral ID Status Reason Start Date Expiration Date Visits Requested Visits Authorized [id number] Authorized PCP Requested Referral Auto-Generate d Referral 10/16/2022 10/16/2023 99 99 Specialty Diagnoses / Procedures Referred By Contac t Referred To Contact MR IMAGING Diagnoses Torres's palsy Procedures MRI BRAIN WO IVCON MRI BRAIN BRAIN STEM W/O CONTRAST MATERIAL David Samayoa Jr., MD [address] [place] [address] Mr Imaging Referral ID Status Reason Start Date Expiration Date Visits Requested Visits Authorized [id number] Authorized Auto-Generat ed Referral 10/16/2022 11/15/2023 1 1 Additional Source Comments INFORMATION SOURCE (unrecogn ized section and content) DATE CREATED AUTHOR 09/01/2021 [facility] DATE CREATED AUTHOR AUTHOR'S ORGANIZ ATION 09/07/2022 [facility] ([place]) DATE CREATED AUTHOR AUTHOR'S ORGANIZ ATION 11/19/2022 [facility] DATE CREATED AUTHOR AUTHOR'S ORGANIZ ATION 12/15/2022 [facility] DATE CREATED AUTHOR AUTHOR'S ORGANIZ ATION 11/17/2023 [facility] Care Team (unrecognized sect ion and content) Care Team Personnel Name: ZHANG MUHAMMAD DO Member Role: Primary Care Physician Address: Address: [address] [place], [place] [address] Care Team Related Persons Name: BACILIO DOUGLASS Source Comments (unrecognize d section and content) In the event this informatio n is protected by the Federal Confidentiality of Alcohol and Drug Abuse Patient Records regulations: The Federal rules restrict any use of the information to criminally investigate or prosecute any alcohol or drug abuse patient.[facility] event this information is protected by the Federal Confidentiality of Alcohol and Drug Abuse Patient Records regulations: The Federal rules restrict any use of the information to criminally investigate or prosecute any alcohol or drug abuse patient.[facility] the event this information is protected by the Federal Confidentiality of Alcohol and Drug Abuse Patient Records regulations: The Federal rules restrict any use of the information to criminally investigate or prosecute any alcohol or drug abuse patient.[facility] the event this information is protected by the Federal Confidentiality of Alcohol and Drug Abuse Patient Records regulations: The Federal rules restrict any use of the information to criminally investigate or prosecute any alcohol or drug abuse patient.[facility] the event this information is protected by the Federal Confidentiality of Alcohol and Drug Abuse Patient Records regulations: The Federal rules restrict any use of the information to criminally investigate or prosecute any alcohol or drug abuse patient.[facility] Reason for Visit (unrecogniz ed section and content) Reason Comments Appointment Calling for clarific ation on appt details and where she was last seen. 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 Facial weakness Procedures CONSULT TO PHYSICAL THERAPY PHYSICAL THERAPY EVALUATION HIGH COMPLEX 45 MINS David Samayoa Jr., MD [address] [facility] [address] [place] [address] [facility] [place] [address] [place] [address] Referral ID Status Reason Start Date Expiration Date Visits Requested Visits Authorized [id number] Authorized PCP Requested Referral Auto-Generate d Referral 11/14/2022 11/14/2023 99 99 Care Teams (unrecognized sec tion and content) Senior Quality Assurance Specialist Relationship Specialty Start Date End Date Sascha Hinojosa MD [address] [place], [place] [phone] PCP - General 12/21/03 Senior Quality Assurance Specialist Relationship Specialty Start Date End Date Zhang Muhammad DO [address] [facility] [address] [place], [place] [phone] PCP - General Family Medicine 10/06/22 Senior Quality Assurance Specialist Relationship Specialty Start Date End Date Zhang Muhammad DO [address] [place], [place] [phone] PCP - General Family Medicine 10/06/22 Senior Quality Assurance Specialist Relationship Specialty Start Date End Date Zhang Muhammad DO [address] [facility] [address] [place] [address] PCP - General [facility] 10/06/22 Senior Quality Assurance Specialist Relationship Specialty Start Date End Date Zhang Muhammad DO [address] [facility] [address] [place], [place] [id number] PCP - General [facility] 10/06/22 FOR RECORDS PERTAINING TO PATIENTS WHO ARE OR HAVE BEEN ENROLLED IN A CHEMICAL DEPENDENCY/SUBSTANCEABUSE PROGRAM, SOME INFORMATION MAY BE OMITTED. This clinical summary was aggregated from multiple sources. Caution should be exercised in using it in the provision of clinical care. This summary normalizes information from multiple sources, and as a consequence, information in this document may materially change the coding, format and clinical context of patient data. In addition, data may be omitted in some cases. CLINICAL DECISIONS SHOULD BE BASED ON THE PRIMARY CLINICAL RECORDS. [facility]. provides no warranty or guarantee of the accuracy or completeness of information in this document.
--- NOTE | 2024-05-29 20:22 | EKG12_ITS ---
Test Reason : PALPS Blood Pressure : / mmHG Vent. Rate : 070 BPM Atrial Rate : 070 BPM P-R Int : 178 ms QRS Dur : 076 ms QT Int : 414 ms P-R-T Axes : 050 011 030 degrees QTc Int : 447 ms Normal sinus rhythm Normal ECG Confirmed by ZOHREH ADAME MD ([id number]), supervising editor trailer BETTY FERGUSON ([id number]) on 05/30/2024 10:01:16 AM Referred By: JOSÉ MIGUEL Confirmed By:ZOHREH ADAME MD
[2024-05-29 21:07] LABS: Absolute Lymphocyte Count 2.69 X10^3/uL (0.83-4.51); Absolute Neutrophil Count 3.2 X10^3/uL (2.0-7.7); Basophil# 0.05 X10^3/uL; Basophil% 0.8 % (0-1); Eosinophil# 0.11 X10^3/uL; Eosinophils% 1.7 % (0-5); Hematocrit 36.3 % (37-47); Hemoglobin 12.4 g/dL (12.0-15.0); Lymphocyte # 2.69 X10^3/ul (0.83-4.51); Lymphocyte % 41.7 % (19-41); Mean Corp Hgb Conc 34.2 g/dL (32-36); Mean Corpuscular Hgb 31.2 pg (27.0-32.0); Mean Corpuscular Volume 91.2 fL (81-99); Monocyte# 0.35 X10^3/uL; Monocyte% 5.4 % (0-10); NRBC Flagged by Analyzer 0 % (0-5); Neutrophil # 3.23 X10^3/uL (2.7-7.7); Neutrophil % 50.1 % (47-70); Platelet Count 328 K/mm3 (150-450); RBC Distribution Width CV 12.6 % (11.6-14.6); RBC Distribution Width SD 41.8 fl (35.1-43.9); Red Blood Count 3.98 M/mm3 (4.2-5.4); White Blood Count 6.5 K/mm3 (4.4-11.0)
[2024-05-29 21:16] LABS: International Normalized Ratio 1.1; Prothrombin Time (Protime)PT. 13.9 SECONDS (11.7-14.9)
[2024-05-29 21:17] LABS: Partial Thromboplast Time 25.4 Seconds (24.1-36.2)
[2024-05-29 21:26] LABS: Anion Gap 7 (5-15); BUN 17 mg/dL (7-18); BUN/Creat Ratio 26.9 RATIO (10-20); Calcium,Total 9.1 mg/dL (8.5-10.1); Chloride 107 mmol/L (98-107); Creatinine, Serum 0.63 mg/dL (0.55-1.02); EST Glomerular Filtration Rate 99 mL/min (>60); Est Glom Filt Rate - Afr Amer 119 mL/min (>60); Estimated Creatinine Clearance 63.59 ml/min; Glucose 99 mg/dL (74-106); Potassium 3.7 mmol/L (3.5-5.1); Sodium Level 138 mmol/L (136-145); Troponin-I HS 107 pg/mL (3.0-54.0)
--- NOTE | 2024-05-29 21:41 | ED.VIS.DYS ---
HPI History of Present Illness Chief Complaint: Shortness of Breath Informant: patient Narrative Narrative: Patient is a 69-year-old female who had right shoulder replacement at [facility] earlier this month. She states for the past few days she has been feeling lousy and been more short of breath. Feels that she is struggling to do her daily activities. She is actively on exertion. Yesterday her daughter physical therapist noticed and thought that she should be evaluated for blood clot. Her primary care doctor ordered a CTA which was positive for PE and she was sent down to the emergency room. She denies any chest pain or leg swelling. Denies a history of DVT or PE. She has been on 81 mg aspirin lately. No other complaints or concerns reported at this time. [facility] Medical History Urgency of urination Right wrist fracture Concussion GERD (gastroesophageal reflux disease) Bunion Home Medications ?Medication ?Instructions ?Recorded ?Last Taken ?Type escitalopram oxalate 10 mg tablet 10 mg PO DAILY 07/20/20 Unknown History (Lexapro) levothyroxine 112 mcg tablet See Rx Instructions PO DAILY 07/20/20 Unknown History (Synthroid) multivitamin 1 tab PO DAILY 04/10/23 Unknown History zolpidem 5 mg tablet (Ambien) 5 mg PO QHS PRN insomnia #30 tabs 08/17/23 Unknown Rx Allergy/AdvReac Type Severity Reaction Status Date / Time Penicillins (PCN) Allergy Anaphylaxis Verified 05/29/24 17:23 Family History Father Colon cancer, Onset Age: 80 Kidney disease Mother Hypertension Surgical History H/O wrist surgery S/P LEEP History of surgery on arm History of esophagogastroduodenoscopy (EGD) (~06/2020) History of colonoscopy (~06/2020) History of bunionectomy History of cataract extraction Social History number of children: 2 current occupational status: employed current occupation: [employer] Smoking Status: Never smoker alcohol intake: current alcohol intake frequency: 3 or more drinks per day substance use type: does not use diet: vegetarian seatbelt use: always do you feel safe at home: Yes ROS ROS ED Constitutional Constitutional ED: Denies chills or fever(s) Cardiovascular Cardiovascular: Denies chest pain Respiratory/Chest Respiratory/Chest: Reports dyspnea and dyspnea on exertion; Denies cough Gastrointestinal Gastrointestinal: Denies nausea or vomiting Musculoskeletal Musculoskeletal: Reports other Details: post op right shoulder pain ; Denies arthralgias or myalgias Integumentary Denies rash Neurologic Neurologic: Denies paresthesias or weakness Hematologic/Lymphatic Hematologic/Lymphatic: Denies easy bleeding or easy bruising EXAM Physical Exam Const Vital Signs: 05/29/24 17:19 05/29/24 18:19 05/29/24 18:57 Temperature 98 F Temperature Source Oral Pulse Rate 79 80 Respiratory Rate 16 23 H Respiratory Effort Short of Breath Respiratory Depth Normal Respiratory Pattern Normal Blood Pressure 165/102 H 174/96 H Blood Pressure Mean 123 122 Pulse Ox 98 100 Oxygen Delivery Method Room Air Room Air Room Air 05/29/24 19:00 05/29/24 20:00 05/29/24 21:00 Temperature Temperature Source Pulse Rate 75 81 80 Respiratory Rate 21 H 23 H 20 H Respiratory Effort Respiratory Depth Respiratory Pattern Blood Pressure 151/92 H 151/91 H Blood Pressure Mean 111 111 Pulse Ox 99 98 94 Oxygen Delivery Method Room Air Room Air 05/29/24 22:00 05/29/24 22:08 Temperature 97.9 F Temperature Source Pulse Rate 72 71 Respiratory Rate 18 19 H Respiratory Effort Respiratory Depth Respiratory Pattern Blood Pressure 172/102 H 172/102 H Blood Pressure Mean 125 125 Pulse Ox 96 96 Oxygen Delivery Method Room Air Positive well nourished General Appearance ED: NAD HEENT Reports moist mucous membranes Eyes PERRL Neck supple and no JVD Resp normal respiratory effort and clear to auscultation bilaterally Cardio regular rate, regular rhythm and no murmurs Extremity Extremity Narrative: Decreased range of motion of the right shoulder from recent surgery, mild swelling of the right upper extremity. No peripheral edema of the lower extremities appreciated. No palpable cords. Neuro oriented x3 Sensorium / Orientation: alert Motor Exam: Negative for general weakness Psych mental status grossly normal Skin Skin Narrative: Healing surgical incision of the right shoulder. No signs of infection MDM MDM MDM Narrative Medical decision making narrative: Patient is evaluated for increased exertion and positive outpatient CTA of the chest consistent with pulmonary emboli. CTA reviewed from earlier today which shows distal right main pulmonary artery PE going into the lobar pulmonary artery branches into the right upper lobe and right lower lobe with additional interlobar branch of the lobar pulmonary artery extending into the medial basilar segment of the left lower lobe. No ventricular strain appreciated. EKG and basic labs obtained. EKG shows normal sinus rhythm. Lab work is remarkable for an elevated high sensitivity troponin of 107. I will add on a BNP. Even though CT does not demonstrate right heart strain, I suspect there is a component of this. Will discuss with hospitalist best route of anticoagulation (heparin versus Lovenox versus NOAC). I do think patient benefit from admission echocardiogram and further monitoring. Patient is agreeable this plan. Spoke with hospitalist. Patient is given dose of weight-based Lovenox in the emergency room. High since he troponin is stable. Do not acute ischemic cardiac process but suspect she does have strain from her pulmonary emboli. Lab Data Attestation: I reviewed the patient's lab results. Labs: Laboratory Results - last 24 hr 05/29/24 05/29/24 21:00 22:20 WBC 6.5 RBC 3.98 L Hgb 12.4 Hct 36.3 L MCV 91.2 MCH 31.2 MCHC 34.2 RDW Std Deviation 41.8 RDW Coeff of Gabo 12.6 Plt Count 328 MPV 9.0 Immature Gran % (Auto) 0.300 Neut % (Auto) 50.1 Lymph % (Auto) 41.7 H [place] % (Auto) 5.4 Eos % (Auto) 1.7 Baso % (Auto) 0.8 Absolute Neuts (auto) 3.2 Absolute Lymphs (auto) 2.69 Nucleated RBC % 0 PT 13.9 INR 1.1 APTT 25.4 Sodium 138 Potassium 3.7 Chloride 107 Carbon Dioxide 24.0 Anion Gap 7 BUN 17 Creatinine 0.63 Estim Creat Clear Calc 63.59 Est GFR (MDRD) Af Amer 119 Est GFR (MDRD) Non-Af 99 BUN/Creatinine Ratio 26.9 H Glucose 99 Calcium 9.1 Troponin I High Sens 107 H 110 H B-Natriuretic Peptide 13.7 Rhythm Strip Rhythm Strip: Sinus Rhythm Rate: 70 Ectopy: None EKG Initial EKG: Attestation: I personally reviewed and interpreted this EKG as follows: Interpretation: Sinus Rhythm Comments: Normal sinus rhythm at a rate of 70 bpm Normal axis Normal intervals Normal ST segments Discharge Plan Dx/Rx/DC Orders Clinical Impression: Pulmonary emboli, Elevated troponin, Postoperative complication Disposition Disposition: Acute Care Hospital [facility] Discharge Date/Time: 05/29/24 23:22
--- NOTE | 2024-05-29 22:00 | HP.PCM.HOS_ITS ---
HPI - General General Date of Admission: 05/29/24 Date of Service: 05/29/24 Chief Complaint: SOB. 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 Ms. Zuleta reports her symptoms began approximately 2-3 days prior to admission with her generally feeling unwell and with easy fatigability and POLO. Then earlier today she felt like she was really struggling just to do her ADL's which is unusual for her and her PT noted she should be evaluated for possible pulmonary embolism. Her PCP then ordered a CTA of the chest which returned positive for Multiple Pulmonary Emboli so she was sent to the ER for further evaluation and treatment. Interestingly, she denies chest pain, leg swelling or history of VTE. She states she has been taking her BASA daily as prescribed. She denies associated fever, chills, nausea, vomiting, diarrhea, constipation, palpitations, diaphoresis or headache. In the ER she was diagnosed with Multiple PE's complicated by elevated troponin of 107 pg/mL present on admission suggestive of possible Right heart strain in the setting of a Postoperative Complication after recent Right Shoulder Replacement in spite of daily BASA for DVT prophylaxis and she was then admitted to the PCU for ongoing care for a stay that is expected to extend beyond 2 midnights. [facility] Medical History Urgency of urination Right wrist fracture Concussion GERD (gastroesophageal reflux disease) Bunion Home Medications ?Medication ?Instructions ?Recorded ?Last Taken ?Type escitalopram oxalate 10 mg tablet 10 mg PO DAILY 07/20/20 Unknown History (Lexapro) levothyroxine 112 mcg tablet See Rx Instructions PO DAILY 07/20/20 Unknown History (Synthroid) multivitamin 1 tab PO DAILY 04/10/23 Unknown History zolpidem 5 mg tablet (Ambien) 5 mg PO QHS PRN insomnia #30 tabs 08/17/23 Unknown Rx Allergy/AdvReac Type Severity Reaction Status Date / Time Penicillins (PCN) Allergy Anaphylaxis Verified 05/29/24 17:23 Family History Father Colon cancer, Onset Age: 80 Kidney disease Mother Hypertension Surgical History H/O wrist surgery S/P LEEP History of surgery on arm History of esophagogastroduodenoscopy (EGD) (~06/2020) History of colonoscopy (~06/2020) History of bunionectomy History of cataract extraction Social History number of children: 2 current occupational status: employed current occupation: [employer] Smoking Status: Never smoker alcohol intake: current alcohol intake frequency: 3 or more drinks per day substance use type: does not use diet: vegetarian seatbelt use: always do you feel safe at home: Yes ROS ROS Narrative Review of Systems: Constitutional: Patient admits to fatigue and POLO but he denies fever or chills. Eyes: Patient denies changes in vision or discharge from eyes. ENT: Patient denies runny nose, sore throat or ear pain. Resp: Patient admits to SOB but she denies cough. CV: Patient denies chest pain, palpitations or heart racing. GI: Patient denies abdominal pain, nausea, vomiting, diarrhea or constipation. : Patient admits to incontinence but she denies dysuria or hematuria. MSK: Patient admits to Right shoulder pain after recent surgery. Skin: Patient denies rash, abscess or jaundice. Psych: Patient denies symptoms of uncontrolled depression or anxiety. Neuro: Patient denies headache, paresthesias or focal neurologic deficits. Allergy: Patient denies lip swelling, tongue swelling or urticaria. Hematology: Patient denies easy bleeding or history of VTE. Endocrinology: Patient denies polyuria, polydipsia or polyphagia. 14 point ROS otherwise negative except for positives noted above in HPI. Vital Signs Vital Signs Vital Signs: 05/29/24 17:19 05/29/24 18:19 05/29/24 18:57 Temperature 98 F Temperature Source Oral Pulse Rate 79 80 Respiratory Rate 16 23 H Respiratory Effort Short of Breath Respiratory Depth Normal Respiratory Pattern Normal Blood Pressure 165/102 H 174/96 H Blood Pressure Mean 123 122 Pulse Ox 98 100 Oxygen Delivery Method Room Air Room Air Room Air 05/29/24 19:00 05/29/24 20:00 05/29/24 21:00 Temperature Temperature Source Pulse Rate 75 81 80 Respiratory Rate 21 H 23 H 20 H Respiratory Effort Respiratory Depth Respiratory Pattern Blood Pressure 151/92 H 151/91 H Blood Pressure Mean 111 111 Pulse Ox 99 98 94 Oxygen Delivery Method Room Air Room Air Weight Weight: 166 lb Body Mass Index (BMI) 29.4 Physical Exam Const alert, oriented x3, no apparent distress, average body habitus and healthy appearing General Appearance: cooperative HEENT normocephalic, head/scalp atraumatic, hearing grossly normal bilaterally and moist oral mucous membranes Eyes PERRL and EOMs intact bilaterally Neck no lymphadenopathy and supple Resp normal respiratory effort, no retractions, no use of accessory muscles and clear to auscultation bilaterally Cardio regular rate and regular rhythm GI normal to inspection, nondistended, normoactive bowel sounds, soft to palpation, non-tender and non-distended Extremity Extremity Narrative: RUE in sling with no signs of edema in extremities. Skin Skin Narrative: Patient has no evidence of rash, abscess or jaundice. Neuro oriented x3, CN's II-XII intact bilaterally, moves all extremities and no focal motor deficits Sensorium / Orientation: awake, alert, oriented to person, oriented to place and oriented to time Speech: speech normal Psych affect normal Results Medical Records Data Attestation: I reviewed the patient's medical records Lab / Micro Data Attestation: I reviewed the patient's lab results. 05/29/24 21:00 05/29/24 21:00 Labs: Laboratory Results - last 24 hr 05/29/24 21:00: WBC 6.5, RBC 3.98 L, Hgb 12.4, Hct 36.3 L, MCV 91.2, MCH 31.2, MCHC 34.2, RDW Std Deviation 41.8, RDW Coeff of [place] 12.6, Plt Count 328, MPV 9.0, Immature Gran % (Auto) 0.300, Neut % (Auto) 50.1, Lymph % (Auto) 41.7 H, [place] % (Auto) 5.4, Eos % (Auto) 1.7, Baso % (Auto) 0.8, Absolute Neuts (auto) 3.2, Absolute Lymphs (auto) 2.69, Nucleated RBC % 0, PT 13.9, INR 1.1, APTT 25.4, Sodium 138, Potassium 3.7, Chloride 107, Carbon Dioxide 24.0, Anion Gap 7, BUN 17, Creatinine 0.63, Estim Creat Clear Calc 63.59, Est GFR (MDRD) Af Amer 119, Est GFR (MDRD) Non-Af 99, BUN/Creatinine Ratio 26.9 H, Glucose 99, Calcium 9.1, Troponin I High Sens 107 H Rhythm Strip Rhythm Strip: Sinus Rhythm Rate: 70 Ectopy: None Assessment & Plan Assessment/Plan (1) Pulmonary emboli: QUALIFIERS: Pulmonary embolism type: multiple subsegmental (without acute cor pulmonale) Qualified Code(s): I26.94 - Multiple subsegmental thrombotic pulmonary emboli without acute cor pulmonale (2) Elevated troponin: (3) Postoperative complication: QUALIFIERS: Surgical complication system/body Area: m usculoskeletal system Surgical complication type: unspecified Qualified Code(s): M96.89 - Other intraoperative and postprocedural complications and disorders of the musculoskeletal system (4) Overweight (BMI 25.0-29.9): (5) Hypothyroidism: QUALIFIERS: Hypothyroidism type: unspecified Qualified Code(s): E 03.9 - Hypothyroidism, unspecified PLAN: Plan 1. CTA of the chest which returned positive for Multiple Pulmonary Emboli - Admit to PCU. Check LE doppler studies in AM to assess for possible residual clot burden. Give Tylenol prn for [id number] (level 1-5/10) pain or fever. Give IV Morphine prn for severe (level 6-10/10) pain. 2. Elevated troponin of 107 pg/mL present on admission suggestive of possible Right heart strain arising from #1 - Continue full-dose Lovenox and check echocardiogram to evaluate for objective evidence of Right heart strain. Finally, patient is apparently a personal friend of Dr. Gupta and she is insisting a consult be placed for him to see her in the AM which was done. 3. Recent Right Shoulder Replacement done ~2 weeks ago at [facility] culminating in her being discharged on BASA daily for postoperative DVT prophylaxis leading to Postoperative Complications encapsulated in #1 & #2 - Patient's orthopedic surgeon should be updated with her condition and also perhaps consider alternative and more robust postoperative DVT prophylaxis regimen with failure of daily BASA resulting in subsequent PE's and hospitalization. 4. Overweight; with BMI of 29.4 this admission - Weight loss will be recommended. This complicated her case and may hamper her recovery. 5. Hypothyroidism - Resume Synthroid as previous plus check TSH. 6. History of TBI - Noted. 7. Depression - Maintain escitalopram at current dose and schedule. 8. History of cervical dysplasia; s/p LEEP procedure for DARCI III at [facility] - Noted. 9. Chronic pelvic pain - Stable. Give Tylenol prn. 10. History of UTI - Check UA this admission. 11. History of atrophic vaginitis - Noted. 12. History of urinary and fecal incontinence - Noted. 13. GERD - Stable without active pharmacological treatment at this time. 14. 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 15. History of Right wrist fracture; s/p repair - Stable. 16. OA - Give Tylenol prn. 17. DVT prophylaxis - Patient on full-dose Lovenox for #1. Total time: Approximately (but not less than) 55 minutes. Charges/Coding Visit Charges Inpatient E&M: 58416 Init Hosp L2
[2024-05-29] MEDS: Enoxaparin 80 MG/0.8 ML Syringe SC (22:17)
[2024-05-29] MEDS: Acetaminophen 325 MG Tablet 650 MG PO (22:27)
--- OUTSIDE RECORDS SUMMARY | 2024-05-29 22:35 | XMS RPT_ITS | CCD ---
Author Organization [facility] Care Team Providers Care Nuclear Engineer Name Role Phone Rand Melgar MD Unavailable [phone] KEAGAN Schroeder RN, Mague Li Unavailable UnavailRand Eubanks MD Unavailable [phone] Boo ASHFORD, Zeinab Benton Unavailable Maddie Neil Unavailable Unavailable ZHANG MUHAMMAD DO Primary Care Physician TAYLER PIERRE, DR. HOYOS Primary Care Unavaila MARIN Gallegos DO Attending Unavailable ZHANG MUHAMMAD DO Primary Care Unavailable MARIN DOSS DO Attending Unavailable Sascha Hinojosa MD Primary Care Provider [phone] Zhang Muhammad DO Primary Care Provider DAVID SAMAYOA Referring Unavailable ZHANG MUHAMMAD Primary Care Unavailable ZHANG MUHAMMAD Primary Care Unavailable DAVID SAMAYOA JR Referring Unavailable ALMA ROSA RIVERA Attending Unavailable ZHANG MUHAMMAD Primary Care Unavailable DAVID SAMAYOA JR Referring Unavailable ALMA ROSA RIVERA Attending Unavailable ZABRINA ROJAS Attending Unavailable ZHANG MUHAMMAD Primary Care Unavailable Allergies Allergy Classification Reported Allergen(s) Allergy Type Date of Onset Reaction(s) Facility (3 sources) penicillin v drug allergy 04-12-20 [facility] (1 source) Penicillin; Translations: [penicillin] Drug Allergy Anaphylactoid reaction (disorder) [facility] (7 sources) Penicillins; Translations: [PENICILLINS] Propensity to adverse reactions 05-18-20 [facility] Work Phone: Medications Current Medications Medication [...] One tablet by mouth daily LEVOTHYROXINE SODIUM [id number] Rand Melgar MD Start: 03-29-2017 SYNTHROID 112 MCG TABS LEVOTHYROXINE SODIUM [id number] Maddie Neil Start: 03-12-2017 take 1 tablet by james th once daily levothyroxine (SYNTHROID) 112 mcg tablet TAKE 1 TABLET BY MOUTH EVERY DAY 30 tablet 3 04/13/2017 Active Start: 03-12-2017 take 1 tablet by james th once daily SYNTHROID 112 MCG TABS One tablet by mouth daily LEVOTHYROXINE SODIUM [id number] Zeinab Haddad 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 Reason for Visit: PT Progress Note [1596] [...] B COMPLEX ORAL Take by mouth. Normal [facility] CNOVon 12-19-2022 CNOV Office Visit (BHASKAR ) JENNIFER RICHARD ([id number]) 1955 F NFR Date Time Provider Department 12/19/22 11:00 AM ZABRINA ROJAS During your visit today, we recorded the following information about you: Pulse Respiration Blood pressure Weight 82/minute 16/minute 128/88 74.6 kg Zabrina Rojas PA-C 12/21/2022 8:10 AM Signed [facility] Name: Jennifer Richard Age: [...] She has an upcoming trip planned to [place] for several months. We will reconsider need [...] now. Will reevaluate after she returns from [place] at follow up with Dr. Samayoa. Will [...] 250 mg (more content not included)... Normal [facility] 12-14-2022 [facility] HNO ID: [id number] Author: Robina Shanta, RT(R) Service: Radiology Author [...] RT Adriana(R) December 14, 2022 4:21 PM [facility] MRI 3D POST PROCESSINGon MRI 3D POST PROCESSING * * *Final Report* * * DATE OF EXAM: Dec 14 2022 4:24PM [facility] 0280 - MRI 3D POST PROCESSING / [...] = Focal Lesions 2 = Beginning of [place] 3 = Diffuse Involvement of Entire Region [...] results from the analysis charts for details. Produce Team Lead: BOLA Transcribe Date/Time: Dec 14 2022 10:08P Dictated by : CINDY BARRAZA DO This examination was interpreted and the report reviewed and electronically signed by: CINDY BARRAZA DO on Dec 14 2022 (more content not included)... Normal [facility] MRI BRAIN WO IVCONon 023 [...] = Focal Lesions 2 = Beginning of [place] 3 = Diffuse Involvement of Entire Region [...] results from the analysis charts for details. Produce Team Lead: PSCMila Transcribe Date/Time: Dec 14 2022 10:08P Dictated by : CINDY BARRAZA DO This examination was interpreted and the report reviewed and electronically signed by: CINDY BARRAZA DO on Dec 14 2022 10:13PM EST (more content not included)... Normal [facility] CNTHERAPYon 12-12-2022 CNTHERAPY OT/PT/Speech Visit (SPTBR) JENNIFER RICHARD ([id number]) 1955 F NFR Date Time Provider Department 12/12/22 3:00 PM ALMA ROSA RIVERA SPTBR Date Time Provider Department Center 12/12/2022 3:00 PM [id number], WENDY SPTBR [facility] Reason for Visit: [...] VITAMIN B COMPLEX ORAL [facility] AMINAN [facility] (CAROL) JENNIFER RICHARD ([id number]) 1955 F NFR Date Time Provider Department [...] Diagnosis:Facial weakness [R29.810] Order(s):CONSULT TO PHYSICAL THERAPY [0751] Order #: [id number]: 1 FUTURE Prescriptions as of 11/14/2022 - [...] 07/19/2011 ASCUS with positive high risk HPV [[id number]] 08/30/2011 12/21/2014 Special screening for malignant neoplasms, colo*12/10/2014 12/10/2014 DARCI III (cervical intraepithelial neoplasia gra*12/21/2014 Encounter Status:Closed by DAVID SAMAYOA on 11/14/22 [facility] XR FLUORO 1-2 HRS TECH TIMEo n 01-25-2023 XR FLUORO 1-2 HRS TECH TIME ORIGINAL Images acquired, not reported on this accession number. Normal [facility] ([place]) Op Noteon 08-25-2021 Op Note PATIENT: JENNIFER [...] the radial nerve neurapraxia. Diskriter Job ID: [id number] Olivier Ryan MD DOD:08/25/2021 09:58 A ERICA/bay DOT:08/25/2021 10:34 A Job Number: [id number] Document Number: [id number] cc: Olivier Ryan MD [address] [place] [address] Surgical Pathologyon 022 Surgical Pathology [id number] [facility] PATHOLOGY AND LABORATORY MEDICINE [address] [place], [place] [id number] FINAL SURGICAL PATHOLOGY REPORT NAME: JENNIFER RICHARD N [id number] : 1955 66 Y F BILLING NO.: [id number] LOCATION: [address] PROCEDURE 08/25/2021 DATE: SURGEON: OLIVIER [...] characteristics determined by the clinical laboratories of [facility]. They have not been cleared by [...] negativity on decalcified specimens. Professional Performing Location: [place] [address]. DEPARTMENT OF PATHOLOGY AND LABORATORY MEDICINE [place], [place] [address] [email or web address] Normal [facility] Lab Report: PAP I-G HPV Hi R iskon 04-18-2017 GE use only - for LinkLogic import when terms are not otherwise specified Negative Invalid Interpretation Code Negative [facility] Office Visit: est annualon 0 2017 Documentation of current medications (procedure) Done Invalid Interpretation Code [facility] Fall risk assessment No Invalid Interpretation Code [facility] Hemoglobin presence in stool not done Invalid Interpretation Code [facility] Tobacco smoking status NHIS Never Invalid Interpretation Code [facility] Tobacco use CPHS Never smoker Invalid Interpretation Code [facility] Lab Report: Lipid Profileon 04-06-2017 Cholesterol in HDL mass conc 117 mg/dL Invalid Interpretation Code [facility] Cholesterol in LDL mass conc 93 mg/dL Invalid Interpretation Code 0-130 [facility] Cholesterol mass conc 224 mg/dL High 200 [facility] Lipoprotein.pre-be ta mass conc 14 mg/dL Invalid Interpretation Code 5-40 [facility] Triglyceride mass conc 70 mg/dL Invalid Interpretation Code [facility] Lab Report: T4 Free Directon 04-06-2017 T4 free mass conc 1.21 ng/dL Invalid Interpretation Code 0.76-1.46 [facility] Lab Report: Thyroid Stim Hor zoey (TSH)on 04-06-2017 Thyrotropin Qn 0.42 u[iU]/mL Invalid Interpretation Code 0.358-3.74 [facility] Office Visit: est annualon 0 11-05-2015 General categories [Interpretation] of Cervical or vaginal smear or scraping by Cyto stain Normal Invalid Interpretation Code [facility] Office Visit: est annualon 0 12-04-2014 Breast Mammogram screening Normal Bilateral Invalid Interpretation Code [facility] Vital Signs Date Time Vital Sign Value Performing Clinician Faci litjazmyn 10-16-2022 13:05-0400 Body temperature 97.9 [degF] David Samayoa Jr., MD Work Phone: [facility] 10-16-2022 13:05-0400 Body weight 74.39 kg David Samayoa Jr., MD Work Phone: [facility] 10-16-2022 13:05-0400 Diastolic blood pressure 86 mm[Hg] David Samayoa Jr., MD Work Phone: [facility] 10-16-2022 13:05-0400 Heart rate 75 /min David Samayoa Jr., MD Work Phone: [facility] 10-16-2022 13:05-0400 Respiratory rate 18 /min David Samayoa Jr., MD Work Phone: [facility] 10-16-2022 13:05-0400 Systolic blood pressure 129 mm[Hg] David Samayoa Jr., MD Work Phone: [facility] 08-30-2022 15:04-0500 Diastolic Blood Pressure Non-Invasive 62 1 MARIN DOSS DO [facility] 08-30-2022 15:04-0500 Heart rate 65 /min MARIN DOSS DO [facility] 08-30-2022 15:04-0500 Systolic Blood Pressure Non-Invasive 120 1 MARIN SPITTLE DO [facility] 08-30-2022 14:44-0500 Diastolic Blood Pressure Non-Invasive 64 1 MARIN SPITTLE DO [facility] 08-30-2022 14:44-0500 Heart rate 64 /min MARIN SPITTLE DO [facility] 08-30-2022 14:44-0500 Systolic Blood Pressure Non-Invasive 121 1 MARIN SPITTLE DO [facility] 08-30-2022 14:23-0500 Diastolic Blood Pressure Non-Invasive 69 1 MARIN SPITTLE DO [facility] 08-30-2022 14:23-0500 Heart rate 67 /min MARIN SPITTLE DO [facility] 08-30-2022 14:23-0500 Respiratory rate 13 /min MARIN SPITTLE DO [facility] 08-30-2022 14:23-0500 Systolic Blood Pressure Non-Invasive 135 1 MARIN SPITTLE DO [facility] 08-30-2022 14:10-0500 Respiratory rate 15 /min MARIN SPITTLE DO [facility] 08-30-2022 13:56-0500 Respiratory rate 15 /min MARIN SPITTLE DO [facility] 08-30-2022 13:40-0500 Body temperature 97.7 [degF] MARIN SPITTLE DO [facility] 08-30-2022 13:35-0500 Respiratory Rate - Anes 14 br/min MARIN SPITTLE DO [facility] 08-30-2022 13:30-0500 Respiratory Rate - Anes 15 br/min MARIN SPITTLE DO [facility] 08-30-2022 13:25-0500 Respiratory Rate - Anes 15 br/min MARIN SPITTLE DO [facility] 08-30-2022 13:15-0500 Body temperature 96.8 [degF] MARIN SPITTLE DO [facility] 08-30-2022 12:45-0500 Body temperature 96.8 [degF] MARIN SPITTLE DO [facility] 08-30-2022 12:10-0500 Heart rate 72 /min MARIN SPITTLE DO [facility] 08-30-2022 11:05-0500 Body height 161 cm MARIN SPITTLE DO [facility] 08-30-2022 11:05-0500 Body temperature 97.34 [degF] MARIN SPITTLE DO [facility] 08-30-2022 11:05-0500 Body weight 70.5 kg MARIN SPITTLE DO [facility] 08-30-2022 11:05-0500 Heart rate 63 /min MARIN SPITTLE DO [facility] 2017 12:58-0400 BMI (Body Mass Index) 22.45 kg/m2 Rand Melgar MD [facility] 2017 12:58-0400 Body Temperature 96.5 [degF] Rand Melgar MD [facility] 2017 12:58-0400 Body Temperature 96.49 [degF] Rand Melgar MD [facility] 2017 12:58-0400 BP Diastolic 79 mm[Hg] Rand Melgar MD [facility] 2017 12:58-0400 BP Systolic 123 mm[Hg] Rand Melgar MD [facility] 2017 12:58-0400 Height 162.56 cm Rand Melgar MD [facility] 2017 12:58-0400 Pulse (Heart Rate) 83 /min Rand Melgar MD [facility] 2017 12:58-0400 Respiratory Rate 16 /min Rand Melgar MD [facility] 2017 12:58-0400 Weight 59.33 kg Rand Melgar MD [facility] Encounters Encounter Date Encounter Type Care Provider Facility Start: 03-29-2023 End: 03-29-2023 ambulatory Alma Rosa Rivera PT Work Phone: [facility] Comment on above: 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); Facial weakness Start: 12-19-2022 End: 12-19-2022 ambulatory ZABRINA KUMADYALFONSO Facility:[facility] Start: 12-14-2022 Orders Only Reid Urrutia MD Work Phone: Radiology Comment on above: Cognitive impairment (Primary Dx) Start: 12-12-2022 End: 12-12-2022 ambulatory ZHANG MATTHEWSNGER Facility:[facility] Start: 11-14-2022 Telephone encounter David Samayoa MD Work Phone: Sleep Comment on above: Orders Start: 10-16-2022 End: 10-16-2022 Patient encounter procedure David Samayoa MD Work Phone: Neurology Comment on above: 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 ) Start: 08-30-2022 End: 08-30-2022 ambulatory ZHANG MUHAMMAD DO Facility:B Start: 08-30-2022 End: 08-30-2022 SAME DAY STAY MARIN DOSS DO [facility] Start: 08-29-[address] SOHA PHILLIP MD. [...] Author Start: 04-06-2023 Influenza vaccination INFLUENZA (#1) [facility] Start: 08-28-2022 COVID-19 VACCINE (5 - Moderna series) COVID-19 VACCINE (5 - Moderna series) [facility] Start: 08-06-2022 ADVANCE DIRECTIVE DISCUSSION ADVANCE DIRECTIVE DISCUSSION [facility] Start: 08-06-2022 DEPRESSION ASSESSMENT DEPRESSION ASS ESSMENT [facility] Start: 04-06-2022 Influenza vaccination INFLUENZA (#1) [facility] Start: 11-18-2020 LIPID SCREEN LIPID SCREEN [facility] Start: 12-11-2019 Colonoscopy COLONOSCOPY [facility] Start: 12-11-2019 COLORECTAL CANCER SCREENING COLORECTAL CANCER SCREENING [facility] Start: 2019 BONE DENSITY BONE DENSITY [facility] Start: 2019 PNEUMOCOCCAL: 65+ (1 - PCV) PNEUMOCOCCAL: 65+ (1 - PCV) [facility] Start: 11-18-2018 DIABETES SCREEN DIABETES SCREEN [facility] Start: 2017 End: 2017 Appointment Appointment [facility] Start: 2017 End: 04-18-2017 Mammogram, screening Mammogram, Screening, both breasts [facility] Start: 02-26-2017 End: 04-06-2017 Lipid panel Lipid Panel [facility] Start: 02-26-2017 End: 04-06-2017 TSH + Free T4 TSH + Free T4 [facility] Start: 05-03-2016 Mammography MAMMOGRAM [facility] Start: 2004 SHINGRIX VACCINE (1 of 2) SHINGRIX VACCINE (1 of 2) [facility] Start: 1999 COLOGUARD (FIT-DNA) COLOGUARD (FIT-D NA) [facility] Start: [address] COLONOGRAPHY [facility] Start: 1999 FECAL OCCULT BLOOD FECAL OCCULT BLOO D [facility] Start: 1999 SIGMOIDOSCOPY SIGMOIDOSCOPY [facility] Start: 1973 Urine microalbumin profile DTAP,TDAP,TD (1 - Tdap) [facility] Start: 1972 ANNUAL PCP TEAM LASTEX THREAD WINDER [place] DISEASE VISIT ANNUAL PCP TEAM CHRONIC DISEASE VISIT [facility] Start: 1972 HEPATITIS C SCREENING HEPATITIS C SC RICHARD [facility] Start: 1955 COVID-19 VACCINE (#1) COVID-19 VACCI NE (#1) [facility] End: 11-15-2023 Mri brain brain stem w/o contrast material MRI BRAIN WO IVCON Radiology Routine Torres's palsy 1 Occurrences starting 10/16/2022 until 11/15/2023 [facility] Work Phone: Comment on above: 1 Occurrences starti ng 10/16/2022 until 11/15/2023 [facility] Payers Date Payer Category Payer Medicare [id number] 2019 Medicare MEDICARE MEDICAR E A AND B [id number] 2019-Present [phone] [place] [address] Medicare [id number] 2019 Unknown [id number] 2019 Unknown ALL [employer] ME DICARE SUPPLEMENT [id number] 2019-Present [phone] [address] [place] [address] Indemnity [id number] 1955 Unknown [id number] Social History Date Type Detail Facility Start: 07-19-2011 End: 08-29-2022 Tobacco smoking status Never smoked tobacco (finding) [facility] Sex Assigned At Female [facility] Start: 07-19-2011 Tobacco use and exposure Smokeless tobacco non-user [facility] Start: 03-22-2022 End: 12-19-2022 Alcohol intake Current drinker of alcohol (finding) [facility] Start: 09-29-2014 [facility] Start: 1955 Sex Assigned At Not on file [facility] Start: 12-12-2022 End: 12-19-2022 History of Social function [facility] Start: 12-12-2022 End: 12-19-2022 Tobacco use panel [facility] National Score (1-100), lower number is lower risk 72 [facility] Functional Status Date Assessment Result Facility 08-30-2022 Functional Status Up to bathroom [facility] 08-30-2022 Functional Status bilateral knee high l [facility] 08-30-2022 Functional Status NPO Status Maintained A [facility] 08-30-2022 Functional Status [facility] Mental Status Date Assessment Result Facility 08-30-2022 Mental Status Orientation Oriented x 4 [facility] 08-30-2022 [facility] 08-30-2022 Mental Status [facility] Clinical Notes 12-10-2014 to 03-29-2023 Alma Rosa Rivera, PT - 03/29/2023 1:03 PM Riky Samayoa Jr., MD - 10/16/2022 1:04 PM EDTTelephone Encounter - Brooklynnjose r Alcala LPN - 10/05/2022 1:27 PM EST Note Date & Type Note Facility 03-29-2023 Note HNO ID: [id number] Author: ALMA ROSA RIVERA PT Service: ? Author Type: Physical Therapist Type: Progress Notes Filed: 08/16/2023 09:50 Note Text: 08/16/2023 [facility] PHYSICAL THERAPY DISCONTINUANCE [...] improved movement at left frontalis-improvement noted 03/29/2023. [place] in home exercise program-met as instructed 03/29/2023. [...] improved movement at left frontalis-improvement noted 03/29/2023. [place] in home exercise program-met as instructed 03/29/2023. [...] to following Trigger/tender points: left temporalis, left riprap placer Needle length: 15mm .6 in . [place] used 3, needles removed 3. Dry needling [...] 6: eye br (more content not included)... [facility] 03-29-2023 History of Presen t illness [...] improved movement at left frontalis-improvement noted 03/29/2023. [place] in home exercise program-met as instructed 03/29/2023. [...] score. OBJECTIVE MEASURES WITH LEVEL OF FUNCTION: Sunnybromi Facial Grading System: 87/100 Resting Symmetry: Eye-symmetrical [...] to following Trigger/tender points: left temporalis, left riprap placer Needle length: 15mm .6 in . [place] used 3, needles removed 3. Dry needling [...] Rosa Rivera PT documented in this encounter [facility] 12-19-2022 Note HNO ID: [id number] Author: Zabrina Rojas PA-C Service: ? Author Type: Physician Wall Insulation Sprayer Type: Progress Notes Filed: 12/21/2022 8:10 AM Note Text: [facility] Name: Jennifer Richard Age: [...] She has an upcoming trip planned to [place] for several months. We will reconsider need [...] now. Will reevaluate after she returns from [place] at follow up with Dr. Samayoa. Will [...] Take by mouth. (more content not included)... [facility] 12-12-2022 Note HNO ID: [id number] Author: Alma Rosa Rivera PT Service: ? [...] will demonstrate improved movement at left frontalis. [place] in home exercise program. 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 [facility] 10-16-2022 History of Presen t illness [...] which included preparing to see the patient, iykt-cu-tfry patient care, completing clinical documentation, obtaining and/or reviewing separately obtained history, performing a medically appropriate examination, counseling and educating the patient/family/caregiver, ordering medications, tests, or procedures, communicating with other HCPs (not separately reported), and communicating results to the patient/family/caregiver. documented in this encounter [facility] 10-05-2022 Miscellaneous Notes Pt has appt with Dr. Samayoa for new patient on October 16 2022. Called and spoke with pt about PCP, referring doctor and why she needs to be see. Pt stated she fell in June and got a concussion. She was seen at [facility] Jul 03. State Zhang Manjarrez is her PCP and pt has been under her care since then. Will get results and visit notes from [facility]. Brooklynn Alcala LPN documented in this encounter [facility] 08-30-2022 Hospital Discharg e instructions Patient Education 08/30/2022 14:08:23 Nausea and Vomiting, Adult, Srjm-nn-Pdhm Nausea and Vomiting, Adult Nausea is feeling [...] fruit juice). ?Low-calorie sports drinks. Eat bland, xrzg-eu-gfmddt foods in small amounts as you are able, such as: ?Bananas. ?Applesauce. ?Rice. ?Low-fat (lean) meats. ?Salley. ?Crackers. Avoid drinking fluids that have a lot of sugar or caffeine in them. This includes energy drinks, sports drinks, and soda. Avoid alcohol. Avoid spicy or fatty foods. General instructions Take zwmv-kwu-sqbovei and prescription medicines only as told by your doctor. Drink enough fluid to keep your pee (urine) pale yellow. Wash your hands often with soap and water. If you cannot use soap and water, use hand headhunter. Make sure that all people in your [...] too much water in your body. Take gwcz-jsj-kjcqaho and prescription medicines only as told by [...] 01/08/2009 Document Revised: 11/14/2019 Document Reviewed: 12/31/2018 [employer] Patient Education 2020 Timeline Labs / TLL. 08/30/2022 14:06:54 How to Use an Incentive [...] as possible. If the spirometer includes a online health and fitness coach indicator, use this to guide you [...] 12/03/2007 Document Revised: 08/15/2018 Document Reviewed: 06/05/2018 [employer] Patient Education 2020 Timeline [employer] / TLL. 08/30/2022 14:06:29 Radial Fracture Radial Fracture A [...] applicable. This may take several hours. Take utcp-rbj-emkqyto and prescription medicines only as told by [...] 01/03/2007 Document Revised: 07/17/2018 Document Reviewed: 07/17/2018 [employer] Patient Education 2020 Tim[employer] / TLL. 08/30/2022 14:06:14 Monitored Anesthesia Care, Care After [...] before eating solid foods. General instructions Take zjyv-mlf-sjpagyx and prescription medicines only as told by [...] 11/12/2016 Document Revised: 10/21/2018 Document Reviewed: 11/12/2016 [employer] Patient Education 2020 [employer] / TLL. 08/30/2022 14:06:06 AH - Post Axillary Block [...] If after hours, please call [facility] at and ask for the anesthesia department. Follow Up Care 08/29/2022 09:30:59 With:MARIN DOSS DO, Orthopedic Address: [address] [place] [phone] When: Unknown Comments:CALL DR DIAZ OFFICE FOR A FOLLOW UP APPOINTMENT. CALL DR DOSS WITH ANY QUESTIONS OR CONCERNS. GO TO THE EMERGENCY ROOM WITH ANY URGENT CONCERNS. [facility] 08-30-2022 Summary of episod e note Discharge Instructions Thank you for allowing [facility] to assist you with your healthcare needs. [...] EMERGENCY ROOM WITH ANY URGENT CONCERNS. Where: [address] [place] [phone] Allergies penicillin (Anaphylactoid reaction) Medications Please ask [...] and suzan droe KOE done) Hycet, Lorcet, Marathon, Verdrocet, Vicodin, Xodol, Zamicet What is the [...] may report side effects to FDA at [phone]-[phone]. What other drugs will affect acetaminophen and [...] affect acetaminophen and hydrocodone, including prescription and aixg-vky-cytwrbw medicines, vitamins, and herbal products. Not all [...] to ensure that the information provided by [employer]. ('[employer]') is accurate, up-to-date, and complete, but no guarantee is made to that effect. Drug information contained herein may be time sensitive. [employer] information has been compiled for use by healthcare practitioners and consumers in the [place] and therefore [employer] does not warrant that uses outside of the [place] are appropriate, unless specifically indicated otherwise. [employer] drug information does not endorse drugs, diagnose patients or recommend therapy. [employer] drug information is an informational resource designed [...] effective or appropriate for any given patient. [facility] does not assume any responsibility for any aspect of healthcare administered with the aid of information [facility] provides. The information contained herein is not intended to cover all possible uses, directions, precautions, warnings, drug interactions, allergic reactions, or adverse effects. If you have questions about the drugs you are taking, check with your doctor, nurse or pharmacist. Copyright 3419-0823 [employer]. Version: 16.03. Revision Date: 09/07/2020. Education Materials [...] juice). ? Low-calorie sports drinks. Eat bland, jhoh-ce-mrjrlu foods in small amounts as you are able, such as: ? Bananas. ? Applesauce. ? Rice. ? Low-fat (lean) meats. ? Salley. ? Crackers. Avoid drinking fluids that have a lot of sugar or caffeine in them. This includes energy drinks, sports drinks, and soda. Avoid alcohol. Avoid spicy or fatty foods. General instructions Take fpla-eat-gcbtmha and prescription medicines only as told by your doctor. Drink enough fluid to keep your pee (urine) pale yellow. Wash your hands often with soap and water. If you cannot use soap and water, use hand headhunter. Make sure that all people in your [...] too much water in your body. Take svaa-cpr-nadgfua and prescription medicines only as told by [...] 01/08/2009 Document Revised: 11/14/2019 Document Reviewed: 12/31/2018 [employer] Patient Education 2020 [employer] Inc. How To Use an Incentive Spirometer [...] as possible. If the spirometer includes a online health and fitness coach indicator, use this to guide you [...] 12/03/2007 Document Revised: 08/15/2018 Document Reviewed: 06/05/2018 [employer] Patient Education 2020 [employer] Inc. Radial Fracture A radial fracture is [...] applicable. This may take several hours. Take bjqm-kmi-twqenfj and prescription medicines only as told by [...] 01/03/2007 Document Revised: 07/17/2018 Document Reviewed: 07/17/2018 [employer] Patient Education 2020 [employer] Inc. Monitored Anesthesia Care, Care After These [...] before eating solid foods. General instructions Take wuem-qzi-xyjisqi and prescription medicines only as told by [...] 11/12/2016 Document Revised: 10/21/2018 Document Reviewed: 11/12/2016 [employer] Patient Education 2020 [employer] Inc. POST AXILLARY BLOCK The purpose of [...] If after hours, please call [facility] at and ask for the anesthesia department. Additional Information VACCINATE! IT SAVES LIVES! Members of the community who have not yet received the COVID-19 vaccine and would like to receive it can visit one of [facility] vaccine clinics. There are many vaccine clinic locations within the [facility]. For locations and available times, please visit [email or web address] It is important to note that some COVID mobile vaccine clinics are held outdoors and may be canceled in rainy or stormy conditions. To learn more about pediatric vaccinations (ages 5-11), we invite you to visit the [facility] webpage. [email or web address] [email or web address]-[email or web address].html To learn more about the COVID-19 vaccine, we invite you to visit the [facility] website for a list of frequently asked questions. [email or web address] [email or web address]/[email or web address]-T requently_[email or web address]-Questions.pdf [employer] Patient Portal Access Instructions: Stay connected with your healthcare team and access your personal medical information anytime with the [employer] Patient Portal.If you would like a full copy of your medical records, please contact the [facility] Medical Records Department, Sunday through Sunday between 8a.m. and 4:30p.m. Please follow the directions below to access the portal: 1.Access the email account you provided upon registration to the hospital.2.Look for an invitation email from [facility].3.Open the email and access the invitation link: Accept Invitation to [facility] [employer]4.Fill in the required ferreira to create your account. Sign into [email or web address] with your username and password that you [...] you will allow to register on the [employer] Patient Portal for access to your information. You can also access the [employer] Patient Portal on the [employer] jose. Simply click on Health Records under Health Data and then click on the [employer] logo. HOW TO SAFELY DISPOSE OF PRESCRIPTION [...] Call your local pharmacy or go to [email or web address] to find one close to you.3.Make use of household items: Use cat litter or old coffee grounds to dispose medications if other options are not available. Mix your drugs with these household products, seal them in an airtight container and throw it into the garbage. Call [facility]: [phone] to be sure your drugs can be [...] Patient Education Materials Nausea and Vomiting, Adult, Savj-kj-Fwrj How to Use an Incentive Spirometer Radial [...] aware that I should contact my doctor. Patient/Hot Braider Signature: Date/Time: Relationship to Patient: Witness Name/Signature: Date/Time: [facility] 08-30-2022 Anesthesiology Consult note Patient: JENNIFER RICHARD Age: 67 years Sex: Female : 1955 Associated Diagnoses: None Author: AZAM RONDON APRN-CHEMISTRY PHYSICS TEACHER Assessment Postanesthesia assessment Vitals: Vital signs from [...] by AZAM RONDON on 08/30/2022 01:46 PM [facility] 08-30-2022 Note ORIGINAL Images acquired, not reported on this accession number. [facility] 08-30-2022 Note ORIGINAL Images acquired, not reported on this accession number. [facility] 08-30-2022 Anesthesiology Consult note Patient: JENNIFER RICHARD [...] Mother Colon cancer Father Procedure history: Bunionectomy ([id number]). Comments: 08/30/2022 11:02 Jw Dubois RN BILATERAL 1998 Neuroma ([id number]). Comments: 08/30/2022 11:03 Jw Dubois RN REMOVAL FROM LEFT ARM Cataract ([id number]). Comments: 08/30/2022 11:04 Jw Dubois RN BOTH [...] Signs(last 24 hrs) Last Charted Heart Rate Raylnvtov26 bpm (AUG 30 12:40) Resp Rate 14 br/min (AUG 30 12:10) KOD209 mmHg (AUG 30 12:35) DBP69 mmHg (AUG 30 12:35) Measurements from flowsheet : Measurements 08/30/2022 11:05 EST Height 161 cm Height in inches 63.4 inch(es) Admission Weight 70.5 kg Weight Lbs 155.1 lb [place] Body Weight 53.29 kg Admission Body Mass Index 27.2 m2 08/29/2022 10:30 EST Height 161 cm Admission Weight 70.5 kg Weight Method Stated [place] Body Weight 53.29 kg Pain assessment: Pain [...] Attendee SN - CAt - Role Performed Epic Radiant Analyst 08/30/2022 12:42 EST SN - CTm - [...] Provider #1 Bedside Time Out AZAM RONDON APRN-CHEMISTRY PHYSICS TEACHER Provider #2 Bedside Time Out Hanna Cooper [...] - Abnormality Type SCAB 08/30/2022 12:06 EST [place] History and Physical History and Physical Update [...] - DRS - Immobilization Devices SPLINT FIBERGLASS [id number] 1RL/EA [id number] 08/30/2022 12:01 EST SN - [...] Attendee SN - CAt - Role Performed CHEMISTRY PHYSICS TEACHER SN - CAt - Role Performed Recordist 1 SN - CAt - Role Performed Scrub 1 SN - CAt - Role Performed Competency Evaluated Nurse Aide 1 SN - CAt - Role Performed [...] Weight 70.5 kg Weight Lbs 155.1 lb [place] Body Weight 53.29 kg Admission Body Mass [...] ethnicity Skin Integrity Intact Mucous Membrane Color Shirley IV Present Present Characteristics of Speech Clear [...] Person #1 We May Share NATALIE DOUGLASS [phone] Designated Person #1 Relationship Daughter Height 161 cm Admission Weight 70.5 kg Weight Method Stated [place] Body Weight 53.29 kg Status No, per patient Sleep Apnea Pressure No Sleep Apnea BMI No Sleep Apnea Age Yes Sleep Apnea Neck No Sleep Apnea Gender No Advanced Directives Yes Advance Directive Type [place] Durable Power of Bi Tester for [place], [place] Declaration (Living Will) Advance Directive Location [...] evident Teaching Method Explanation Preferred Written Language Sami Preferred Spoken Language Sami Pre Procedure/Surgery Education Appropriate expectations, Date/Time of procedure/surgery, Hospital gown requirement worn to OR, Leave valuables, jewelry, wedding ring at home, NPO, Responsible pile driver for discharge Procedure/Surgical Teaching Evaluation Verbalizes/Nonverbally [...] Note-Nursing Date\Time Correction . Assessment and Plan [place] Society of Anesthesiologists (ASA) physical status classification: Class II. Anesthetic Preoperative Plan Anesthetic technique: General. Postoperative pain management: axillary block. Informed consent: signed by patient. Digitally Signed by AZAM RONDON on 08/30/2022 12:53 PM [facility] 08-30-2022 Note Date of Service 08/30/22 History and Physical Update I have examined the patient; reviewed the History and Physical and there are no changes to the History and Physical unless noted below. Digitally Signed by MARIN DOSS DO on 08/30/2022 12:06 PM [facility] 12-10-2014 History of Past i llness Narrative Problem Noted Date Resolved Date Special screening for malignant neoplasms, colon 12/10/2014 12/10/2014 ASCUS with positive high risk HPV 08/30/2011 12/21/2014 Other and unspecified hyperlipidemia 04/17/2006 07/19/2011 documented as of this encounter (statuses as of 10/05/2022) [facility] History of Past illness Narrative* Problem Noted Date Resolved Date Special screening for malignant neoplasms, colon 12/10/2014 12/10/2014 ASCUS with positive high risk HPV 08/30/2011 12/21/2014 Other and unspecified hyperlipidemia 04/17/2006 07/19/2011 documented as of this encounter (statuses as of 10/16/2022) [facility] History of Past illness Narrative* Problem Noted Date Resolved Date Special screening for malignant neoplasms, colon 12/10/2014 12/10/2014 ASCUS with positive high risk HPV 08/30/2011 12/21/2014 Other and unspecified hyperlipidemia 04/17/2006 07/19/2011 documented as of this encounter (statuses as of 11/15/2022) [facility] History of Past illness Narrative* Problem Noted Date Resolved Date Special screening for malignant neoplasms, colon 12/10/2014 12/10/2014 ASCUS with positive high risk HPV 08/30/2011 12/21/2014 Other and unspecified hyperlipidemia 04/17/2006 07/19/2011 documented as of this encounter (statuses as of 12/15/2022) [facility] History of Past illness Narrative* Problem Noted Date Diagnosed Date Resolved Date Special screening for malign ant neoplasms, colon 12/10/2014 12/10/2014 ASCUS with positive high risk HPV 08/30/2011 12/21/2014 Other and unspecified hyperlipidemia 04/17/2006 07/19/2011 documented as of this encounter (statuses as of 03/30/2023) [facility] No data available for this section [facility] Evaluation note* 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 documented in this encounter [facility]* 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 Facial weakness documented in this encounter [facility]* Diagnosis Cognitive impairment- Primary Unspecified persistent mental disorders due to conditions classified elsewhere documented in this encounter [facility]* 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 Facial weakness documented in this encounter [facility] Summary Purpose Family History No Family [...] W/INTERP&POSTPROC DIFF WORK STATION Reid Urrutia MD, [address] [place] [address] Mr Imaging Referral ID Status Reason Start Date Expiration Date Visits Requested Visits Authorized [id number] Pending Review Auto-Generat ed Referral 12/14/2022 01/13/2024 1 1 Specialty Diagnoses / Procedures Referred By Contac t Referred To Contact [facility] Diagnoses 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 Procedures CONSULT TO ACCESS CLERK OCCUPATIONAL THERAPY EVAL HIGH COMPLEX 60 MINS David Samayoa Jr., MD [address] [place] [address] [facility] [place] [address] [place] [address] Referral ID Status Reason Start Date Expiration Date Visits Requested Visits Authorized [id number] Authorized PCP Requested Referral Auto-Generate d Referral 10/16/2022 10/16/2023 99 99 Specialty Diagnoses / Procedures Referred By Contac t Referred To Contact [facility] Diagnoses Torres's palsy Procedures MRI BRAIN WO IVCON MRI BRAIN BRAIN STEM W/O CONTRAST MATERIAL David Samayoa Jr., MD [address] [place] [address] Mr Imaging Referral ID Status Reason Start Date Expiration Date Visits Requested Visits Authorized [id number] Authorized Auto-Generat ed Referral 10/16/2022 11/15/2023 1 1 Additional Source Comments INFORMATION SOURCE (unrecogn ized section and content) DATE CREATED AUTHOR 09/01/2021 [facility] DATE CREATED AUTHOR AUTHOR'S ORGANIZ ATION 09/07/2022 [facility] DATE CREATED AUTHOR AUTHOR'S ORGANIZ ATION 11/19/2022 [facility] DATE CREATED AUTHOR AUTHOR'S ORGANIZ ATION 12/15/2022 [facility] DATE CREATED AUTHOR AUTHOR'S ORGANIZ ATION 11/17/2023 [facility] Care Team (unrecognized sect ion and content) Care Team Personnel Name: ZHANG MUHAMMAD DO Member Role: Primary Care Physician Address: Address: [address] [place], [place] [id number] Care Team Related Persons Name: BACILIO DOUGLASS Source Comments (unrecognize d section and content) In the event this informatio n is protected by the Federal Confidentiality of Alcohol and Drug Abuse Patient Records regulations: The Federal rules restrict any use of the information to criminally investigate or prosecute any alcohol or drug abuse patient.[facility] the event this information is protected by the Federal Confidentiality of Alcohol and Drug Abuse Patient Records regulations: The Federal rules restrict any use of the information to criminally investigate or prosecute any alcohol or drug abuse patient.[facility] the event this information is protected by the Federal Confidentiality of Alcohol and Drug Abuse Patient Records regulations: The Federal rules restrict any use of the information to criminally investigate or prosecute any alcohol or drug abuse patient.[facility] the event this information is protected by the Federal Confidentiality of Alcohol and Drug Abuse Patient Records regulations: The Federal rules restrict any use of the information to criminally investigate or prosecute any alcohol or drug abuse patient.[facility] the event this information is protected by the Federal Confidentiality of Alcohol and Drug Abuse Patient Records regulations: The Federal rules restrict any use of the information to criminally investigate or prosecute any alcohol or drug abuse patient.[facility] Reason for Visit (unrecogniz ed section [...] COMPLEX 45 MINS David Samayoa Jr., MD [address] [facility] [address] [place] [address] [facility] [place] [address] [place] [address] Referral ID Status Reason Start Date Expiration Date Visits Requested Visits Authorized [id number] Authorized PCP Requested Referral Auto-Generate d Referral 11/14/2022 11/14/2023 99 99 Care Teams (unrecognized sec tion and content) Nuclear Engineer Relationship Specialty Start Date End Date Sascha Hinojosa MD [address] [place], [place] [phone] PCP - General 12/21/03 Nuclear Engineer Relationship Specialty Start Date End Date Zhang Muhammad DO [address] [facility] [facility] [address] [place], [place] [phone] PCP - General Family Medicine 10/06/22 Nuclear Engineer Relationship Specialty Start Date End Date Zhang Muhammad DO [address] [place], [place] [phone] PCP - General Family Medicine 10/06/22 Nuclear Engineer Relationship Specialty Start Date End Date Zhang Muhammad DO [address] [facility] [address] [place] [address] PCP - General Family [facility] 10/06/22 Nuclear Engineer Relationship Specialty Start Date End Date Zhang Muhammad DO [address] [facility] [address] [place], [place] [phone] PCP - General Family [facility] 10/06/22 FOR RECORDS PERTAINING TO PATIENTS WHO [...] BE BASED ON THE PRIMARY CLINICAL RECORDS. [facility] [employer] [facility]. provides no warranty or guarantee of the accuracy or completeness of information in this document.
[2024-05-29 22:38] LABS: BNP,B-Type NATRIURETIC PEPTIDE 13.7 pg/mL (0-100)
[2024-05-29 22:44] LABS: Troponin-I HS 110 pg/mL (3.0-54.0)
--- OUTSIDE RECORDS SUMMARY | 2024-05-29 23:06 | XMS RPT_ITS | CCD ---
Author Organization [facility] Care Team Providers Care Manager [employer] Name Role Phone Rand Melgar MD Unavailable [phone] KEAGAN Schroeder RN, Mague Li Unavailable UnavailRand Eubanks MD Unavailable [phone] Boo ASHFORD, Zeinab Benton Unavailable Maddie Neil Unavailable Unavailable ZHANG MUHAMMAD DO Primary Care Physician TAYLER PIERRE, DR. HOYOS Primary Care Unavaila MARIN Gallegos DO Attending Unavailable ZHANG MUHAMMAD DO Primary Care Unavailable MARIN DOSS DO Attending Unavailable Sascha Hinjoosa MD Primary Care Provider Zhang Muhammad DO Primary Care Provider [phone] DAVID SAMAYOA Referring Unavailable ZHANG MUHAMMAD Primary [...] (3 sources) penicillin v drug allergy 04-12-20 [facility] (1 source) Penicillin; Translations: [penicillin] Drug Allergy Anaphylactoid reaction (disorder) [facility] (7 sources) Penicillins; Translations: [PENICILLINS] Propensity to adverse reactions 05-18-20 [facility] Work Phone: Medications Current Medications Medication [...] One tablet by mouth daily LEVOTHYROXINE SODIUM [id number] Rand Melgar MD Start: 03-29-2017 SYNTHROID 112 MCG TABS LEVOTHYROXINE SODIUM [id number] Maddie Neil Start: 03-12-2017 take 1 tablet by james th once daily levothyroxine (SYNTHROID) 112 mcg tablet TAKE 1 TABLET BY MOUTH EVERY DAY 30 tablet 3 04/13/2017 Active Start: 03-12-2017 take 1 tablet by james th once daily SYNTHROID 112 MCG TABS One tablet by mouth daily LEVOTHYROXINE SODIUM [id number] Zeinab Haddad [employer] Comment on above: Take 1 tablet by [...] MG TABS nightly as needed ZOLPIDEM TARTRATE [id number] Rand Melgar MD Start: 10-12-2016 take 1 [...] 03-29-2023 CNTHERAPY OT/PT/Speech Visit (SPTBR) JENNIFER RICHARD ([id number]) 1955 F NFR Date Time Provider Department 03/29/23 1:00 PM ALMA ROSA RIVERA SPTBR Date Time Provider Department Center 03/29/2023 1:00 PM [id number], WENDY SPTBR [facility] Reason for Visit: PT Progress Note [...] B COMPLEX ORAL Take by mouth. Normal [facility] CNOVon 12-19-2022 CNOV Office Visit (BHASKAR ) JENNIFER RICHARD ([id number]) 1955 F NFR Date Time Provider Department 12/19/22 11:00 AM ZABRINA ROJAS During your visit today, we recorded the following information about you: Pulse Respiration Blood pressure Weight 82/minute 16/minute 128/88 74.6 kg Zabrina Rojas PA-C 12/21/2022 8:10 AM Signed [facility] Name: Jennifer Richard Age: [...] She has an upcoming trip planned to [place] for several months. We will reconsider need [...] now. Will reevaluate after she returns from [place] at follow up with Dr. Samayoa. Will [...] 250 mg (more content not included)... Normal [facility] 12-14-2022 [facility] HNO ID: [id number] Author: Robina Shanta, RT(R) Service: Radiology Author [...] RT Adriana(R) December 14, 2022 4:21 PM [facility] MRI 3D POST PROCESSINGon MRI 3D POST PROCESSING * * *Final Report* * * DATE OF EXAM: Dec 14 2022 4:24PM [facility] 0280 - MRI 3D POST PROCESSING / [...] = Focal Lesions 2 = Beginning of [place] 3 = Diffuse Involvement of Entire Region [...] results from the analysis charts for details. Composite Bond Worker: BOLA Transcribe Date/Time: Dec 14 2022 10:08P Dictated by : CINDY BARRAZA DO This examination was interpreted and the report reviewed and electronically signed by: CINDY BARRAZA DO on Dec 14 2022 (more content not included)... Normal [facility] MRI BRAIN WO IVCONon 023 MRI BRAIN [...] = Focal Lesions 2 = Beginning of [place] 3 = Diffuse Involvement of Entire Region [...] results from the analysis charts for details. Composite Bond Worker: PSCMila Transcribe Date/Time: Dec 14 2022 10:08P Dictated by : CINDY BARRAZA DO This examination was interpreted and the report reviewed and electronically signed by: CINDY BARRAZA DO on Dec 14 2022 10:13PM EST (more content not included)... Normal [facility] CNTHERAPYon 12-12-2022 CNTHERAPY OT/PT/Speech Visit (SPTBR) JENNIFER RICHARD ([id number]) 1955 F NFR Date Time Provider Department 12/12/22 3:00 PM ALMA ROSA RIVERA SPTBR Date Time Provider Department Center 12/12/2022 3:00 PM [id number], WENDY SPTBR [facility] Reason for Visit: [...] VITAMIN B COMPLEX ORAL [facility] (CAROL) JENNIFER RICHARD ([id number]) 1955 F NFR Date Time Provider Department [...] Diagnosis:Facial weakness [R29.810] Order(s):CONSULT TO PHYSICAL THERAPY [7278] Order #: [id number]: 1 FUTURE Prescriptions as of 11/14/2022 - [...] 07/19/2011 ASCUS with positive high risk HPV [[id number]] 08/30/2011 12/21/2014 Special screening for malignant neoplasms, colo*12/10/2014 12/10/2014 DARCI III (cervical intraepithelial neoplasia gra*12/21/2014 Encounter Status:Closed by DAVID SAMAYOA on 11/14/22 [facility] XR FLUORO 1-2 HRS TECH TIMEo n 01-25-2023 XR FLUORO 1-2 HRS TECH TIME ORIGINAL Images acquired, not reported on this accession number. Normal [facility] ([place]) Op Noteon 08-25-2021 Op Note PATIENT: JENNIFER [...] the radial nerve neurapraxia. Diskriter Job ID: [id number] Olivier Ryan MD DOD:08/25/2021 09:58 A ERICA/bay DOT:08/25/2021 10:34 A Job Number: [id number] Document Number: [id number] cc: Olivier Ryan MD [address] [place] [address] Surgical Pathologyon 022 Surgical Pathology [id number] [facility] PATHOLOGY AND LABORATORY MEDICINE [address] [place], [place] [id number] FINAL SURGICAL PATHOLOGY REPORT NAME: JENNIFER RICHARD N [id number] : 1955 66 Y F BILLING NO.: [id number] LOCATION: [address] PROCEDURE 08/25/2021 DATE: SURGEON: OLIVIER [...] characteristics determined by the clinical laboratories of [facility]. They have not been cleared by [...] negativity on decalcified specimens. Professional Performing Location: [place] [address]. DEPARTMENT OF PATHOLOGY AND LABORATORY MEDICINE [place], [place] [address] [email or web address] Normal [facility] Lab Report: PAP I-G HPV Hi R iskon 04-18-2017 GE use only - for LinkLogic import when terms are not otherwise specified Negative Invalid Interpretation Code Negative [facility] Office Visit: est annualon 0 2017 Documentation of current medications (procedure) Done Invalid Interpretation Code [facility] Fall risk assessment No Invalid Interpretation Code [facility] Hemoglobin presence in stool not done Invalid Interpretation Code [facility] Tobacco smoking status NHIS Never Invalid Interpretation Code [facility] Tobacco use CPHS Never smoker Invalid Interpretation Code [facility] Lab Report: Lipid Profileon 04-06-2017 Cholesterol in HDL mass conc 117 mg/dL Invalid Interpretation Code [facility] Cholesterol in LDL mass conc 93 mg/dL Invalid Interpretation Code 0-130 [facility] Cholesterol mass conc 224 mg/dL High 200 [facility] Lipoprotein.pre-be ta mass conc 14 mg/dL Invalid Interpretation Code 5-40 [facility] Triglyceride mass conc 70 mg/dL Invalid Interpretation Code [facility] Lab Report: T4 Free Directon 04-06-2017 T4 free mass conc 1.21 ng/dL Invalid Interpretation Code 0.76-1.46 [facility] Lab Report: Thyroid Stim Hor zoey (TSH)on 04-06-2017 Thyrotropin Qn 0.42 u[iU]/mL Invalid Interpretation Code 0.358-3.74 [facility] Office Visit: est annualon 0 11-05-2015 General categories [Interpretation] of Cervical or vaginal smear or scraping by Cyto stain Normal Invalid Interpretation Code [facility] Office Visit: est annualon 0 12-04-2014 Breast Mammogram screening Normal Bilateral Invalid Interpretation Code [facility] Vital Signs Date Time Vital Sign Value Performing Clinician Faci litjazmyn 10-16-2022 13:05-0400 Body temperature 97.9 [degF] David Samayoa Jr., MD Work Phone: [facility] 10-16-2022 13:05-0400 Body weight 74.39 kg David Samayoa Jr., MD Work Phone: [facility] 10-16-2022 13:05-0400 Diastolic blood pressure 86 mm[Hg] David Samayoa Jr., MD Work Phone: [facility] 10-16-2022 13:05-0400 Heart rate 75 /min David Samayoa Jr., MD Work Phone: [facility] 10-16-2022 13:05-0400 Respiratory rate 18 /min David Samayoa Jr., MD Work Phone: [facility] 10-16-2022 13:05-0400 Systolic blood pressure 129 mm[Hg] David Samayoa Jr., MD Work Phone: [facility] 08-30-2022 15:04-0500 Diastolic Blood Pressure Non-Invasive 62 1 MARIN DOSS DO [facility] 08-30-2022 15:04-0500 Heart rate 65 /min MARIN DOSS DO [facility] 08-30-2022 15:04-0500 Systolic Blood Pressure Non-Invasive 120 1 MARIN SPITTLE DO [facility] 08-30-2022 14:44-0500 Diastolic Blood Pressure Non-Invasive 64 1 MARIN SPITTLE DO [facility] 08-30-2022 14:44-0500 Heart rate 64 /min MARIN SPITTLE DO [facility] 08-30-2022 14:44-0500 Systolic Blood Pressure Non-Invasive 121 1 MARIN SPITTLE DO [facility] 08-30-2022 14:23-0500 Diastolic Blood Pressure Non-Invasive 69 1 MARIN SPITTLE DO [facility] 08-30-2022 14:23-0500 Heart rate 67 /min MARIN SPITTLE DO [facility] 08-30-2022 14:23-0500 Respiratory rate 13 /min MARIN SPITTLE DO [facility] 08-30-2022 14:23-0500 Systolic Blood Pressure Non-Invasive 135 1 MARIN SPITTLE DO [facility] 08-30-2022 14:10-0500 Respiratory rate 15 /min MARIN SPITTLE DO [facility] 08-30-2022 13:56-0500 Respiratory rate 15 /min MARIN SPITTLE DO [facility] 08-30-2022 13:40-0500 Body temperature 97.7 [degF] MARIN SPITTLE DO [facility] 08-30-2022 13:35-0500 Respiratory Rate - Anes 14 br/min MARIN SPITTLE DO [facility] 08-30-2022 13:30-0500 Respiratory Rate - Anes 15 br/min MARIN SPITTLE DO [facility] 08-30-2022 13:25-0500 Respiratory Rate - Anes 15 br/min MARIN SPITTLE DO [facility] 08-30-2022 13:15-0500 Body temperature 96.8 [degF] MARIN SPITTLE DO [facility] 08-30-2022 12:45-0500 Body temperature 96.8 [degF] MARIN SPITTLE DO [facility] 08-30-2022 12:10-0500 Heart rate 72 /min MARIN SPITTLE DO [facility] 08-30-2022 11:05-0500 Body height 161 cm MARIN SPITTLE DO [facility] 08-30-2022 11:05-0500 Body temperature 97.34 [degF] MARIN SPITTLE DO [facility] 08-30-2022 11:05-0500 Body weight 70.5 kg MARIN SPITTLE DO [facility] 08-30-2022 11:05-0500 Heart rate 63 /min MARIN SPITTLE DO [facility] 2017 12:58-0400 BMI (Body Mass Index) 22.45 kg/m2 Rand Melgar MD [facility] 2017 12:58-0400 Body Temperature 96.5 [degF] Rand Melgar MD [facility] 2017 12:58-0400 Body Temperature 96.49 [degF] Rand Melgar MD [facility] 2017 12:58-0400 BP Diastolic 79 mm[Hg] Rand Melgar MD [facility] 2017 12:58-0400 BP Systolic 123 mm[Hg] Rand Melgar MD [facility] 2017 12:58-0400 Height 162.56 cm Rand Melgar MD [facility] 2017 12:58-0400 Pulse (Heart Rate) 83 /min Rand Melgar MD [facility] 2017 12:58-0400 Respiratory Rate 16 /min Rand Melgar MD [facility] 2017 12:58-0400 Weight 59.33 kg Rand Melgar MD [facility] Encounters Encounter Date Encounter Type Care Provider Facility Start: 03-29-2023 End: 03-29-2023 ambulatory Alma Rosa Rivera PT Work Phone: [facility] Comment on above: Neuralgia of 7th cracker sprayer nial nerve (Primary Dx); Facial weakness Start: 12-19-2022 End: 12-19-2022 ambulatory ZABRINA KUMADYALFONSO [facility] Start: 12-14-2022 Orders Only Reid Urrutia MD Work Phone: Radiology Comment on above: Cognitive impairment (Primary Dx) Start: 12-12-2022 End: 12-12-2022 ambulatory ZHANG MATTHEWSNGER Facility[facility] Start: 11-14-2022 Telephone encounter David Samayoa MD Work Phone: Sleep Comment on above: Orders Start: 10-16-2022 End: 10-16-2022 Patient encounter procedure David Samayoa MD Work Phone: Neurology Comment on above: 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 ) Start: 08-30-2022 End: 08-30-2022 ambulatory ZHANG MUHAMMAD DO Facility:[facility] Start: 08-30-2022 End: 08-30-2022 SAME DAY STAY MARIN DOSS DO [facility] Start: 08-29-[address] SOHA PHILLIP MD. [...] Author Start: 04-06-2023 Influenza vaccination INFLUENZA (#1) [facility] Start: 08-28-2022 COVID-19 VACCINE (5 - Moderna series) COVID-19 VACCINE (5 - Moderna series) [facility] Start: 08-06-2022 ADVANCE DIRECTIVE DISCUSSION ADVANCE DIRECTIVE DISCUSSION [facility] Start: 08-06-2022 DEPRESSION ASSESSMENT DEPRESSION ASS ESSMENT [facility] Start: 04-06-2022 Influenza vaccination INFLUENZA (#1) [facility] Start: 11-18-2020 LIPID SCREEN LIPID SCREEN [facility] Start: 12-11-2019 Colonoscopy COLONOSCOPY [facility] Start: 12-11-2019 COLORECTAL CANCER SCREENING COLORECTAL CANCER SCREENING [facility] Start: 2019 BONE DENSITY BONE DENSITY [facility] Start: 2019 PNEUMOCOCCAL: 65+ (1 - PCV) PNEUMOCOCCAL: 65+ (1 - PCV) [facility] Start: 11-18-2018 DIABETES SCREEN DIABETES SCREEN [facility] Start: 2017 End: 2017 Appointment Appointment [facility] Start: 2017 End: 04-18-2017 Mammogram, screening Mammogram, Screening, both breasts [facility] Start: 02-26-2017 End: 04-06-2017 Lipid panel Lipid Panel [facility] Start: 02-26-2017 End: 04-06-2017 TSH + Free T4 TSH + Free T4 [facility] Start: 05-03-2016 Mammography MAMMOGRAM [facility] Start: 2004 SHINGRIX VACCINE (1 of 2) SHINGRIX VACCINE (1 of 2) [facility] Start: 1999 COLOGUARD (FIT-DNA) COLOGUARD (FIT-D NA) [facility] Start: [address] COLONOGRAPHY [facility] Start: 1999 FECAL OCCULT BLOOD FECAL OCCULT BLOO D [facility] Start: 1999 SIGMOIDOSCOPY SIGMOIDOSCOPY [facility] Start: 1973 Urine microalbumin profile DTAP,TDAP,TD (1 - Tdap) [facility] Start: 1972 ANNUAL PCP TEAM TRAVERTINE INSTALLER ARDEN DISEASE VISIT ANNUAL PCP TEAM CHRONIC DISEASE VISIT [facility] Start: 1972 HEPATITIS C SCREENING HEPATITIS C SC RICHARD [facility] Start: 1955 COVID-19 VACCINE (#1) COVID-19 VACCI NE (#1) [facility] End: 11-15-2023 Mri brain brain stem w/o contrast material MRI BRAIN WO IVCON Radiology Routine Torres's palsy 1 Occurrences starting 10/16/2022 until 11/15/2023 [facility] Work Phone: Comment on above: 1 Occurrences starti ng 10/16/2022 until 11/15/2023 [facility] Payers Date Payer Category Payer Medicare [id number] 2019 Medicare MEDICARE MEDICAR E A AND B [id number] 2019-Present [phone] [place] [address] Medicare [id number] 2019 Unknown [id number] 2019 Unknown ALL [employer] [place] DICARE SUPPLEMENT [id number] 2019-Present [phone] [address] [place] [address] Indemnity [id number] 1955 Unknown [id number] Social History Date Type Detail Facility Start: 07-19-2011 End: 08-29-2022 Tobacco smoking status Never smoked tobacco (finding) [facility] Sex Assigned At Female [facility] Start: 07-19-2011 Tobacco use and exposure Smokeless tobacco non-user [facility] Start: 03-22-2022 End: 12-19-2022 Alcohol intake Current drinker of alcohol (finding) [facility] Start: 09-29-2014 Alcohol [facility] Start: 1955 Sex Assigned At Not on file [facility] Start: 12-12-2022 End: 12-19-2022 History of Social function [facility] Start: 12-12-2022 End: 12-19-2022 Tobacco use panel [facility] National Score (1-100), lower number is lower risk 72 [facility] Functional Status Date Assessment Result Facility 08-30-2022 Functional Status Up to bathroom [facility] 08-30-2022 Functional Status bilateral knee high l [facility] 08-30-2022 Functional Status NPO Status Maintained A [facility] 08-30-2022 Functional Status [facility] Mental Status Date Assessment Result Facility 08-30-2022 Mental Status Orientation Oriented x 4 [facility] 08-30-2022 [facility] 08-30-2022 Mental Status [facility] Clinical Notes 12-10-2014 to 03-29-2023 Alma Rosa Rivera, PT - 03/29/2023 1:03 PM Riky Samayoa Jr., MD - 10/16/2022 1:04 PM EDTTelephone Encounter - Brooklynnjose r Alcala LPN - 10/05/2022 1:27 PM EST Note Date & Type Note Facility 03-29-2023 Note HNO ID: [id number] Author: ALMA ROSA RIVERA PT Service: ? Author Type: Physical Therapist Type: Progress Notes Filed: 08/16/2023 09:50 Note Text: 08/16/2023 [facility] PHYSICAL THERAPY [...] improved movement at left frontalis-improvement noted 03/29/2023. Tama in home exercise program-met as instructed 03/29/2023. [...] improved movement at left frontalis-improvement noted 03/29/2023. Tama in home exercise program-met as instructed 03/29/2023. [...] to following Trigger/tender points: left temporalis, left data migration consultant Needle length: 15mm .6 in . [place] used 3, needles removed 3. Dry needling [...] 6: eye br (more content not included)... [facility] 03-29-2023 History of Presen t illness Narrative [...] improved movement at left frontalis-improvement noted 03/29/2023. Tama in home exercise program-met as instructed 03/29/2023. [...] score. OBJECTIVE MEASURES WITH LEVEL OF FUNCTION: [place] Facial Grading System: 87/100 Resting Symmetry: Eye-symmetrical [...] to following Trigger/tender points: left temporalis, left data migration consultant Needle length: 15mm .6 in . [place] used 3, needles removed 3. Dry needling [...] Rosa Rivera PT documented in this encounter [facility] 12-19-2022 Note HNO ID: [id number] Author: Zabrina Rojas PA-C Service: ? Author Type: Physician Clinical Writer Type: Progress Notes Filed: 12/21/2022 8:10 AM Note Text: [facility] Neu[facility] Name: Jennifer Richard Age: [...] She has an upcoming trip planned to [place] for several months. We will reconsider need [...] now. Will reevaluate after she returns from [place] at follow up with Dr. Samayoa. Will [...] Take by mouth. (more content not included)... [facility] 12-12-2022 Note HNO ID: [id number] Author: Alma Rosa Rivera PT Service: ? [...] will demonstrate improved movement at left frontalis. Tama in home exercise program. 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 [facility] 10-16-2022 History of Presen t illness Narrative [...] which included preparing to see the patient, qqql-gt-lfhj patient care, completing clinical documentation, obtaining and/or reviewing separately obtained history, performing a medically appropriate examination, counseling and educating the patient/family/caregiver, ordering medications, tests, or procedures, communicating with other HCPs (not separately reported), and communicating results to the patient/family/caregiver. documented in this encounter [facility] 10-05-2022 Miscellaneous Notes Pt has appt with Dr. Samayoa for new patient on October 16 2022. Called and spoke with pt about PCP, referring doctor and why she needs to be see. Pt stated she fell in June and got a concussion. She was seen at [facility] Jul 03. State Zhang Manjarrez is her PCP and pt has been under her care since then. Will get results and visit notes from [facility]. Brooklynn Alcala LPN documented in this encounter [facility] 08-30-2022 Hospital Discharg e instructions Patient Education 08/30/2022 14:08:23 Nausea and Vomiting, Adult, Zcvy-ta-Fvfe Nausea and Vomiting, Adult Nausea is feeling [...] fruit juice). ?Low-calorie sports drinks. Eat bland, puwz-sn-tduxeh foods in small amounts as you are able, such as: ?Bananas. ?Applesauce. ?Rice. ?Low-fat (lean) meats. ?Carlin. ?Crackers. Avoid drinking fluids that have a lot of sugar or caffeine in them. This includes energy drinks, sports drinks, and soda. Avoid alcohol. Avoid spicy or fatty foods. General instructions Take caev-hgk-ldscqvd and prescription medicines only as told by your doctor. Drink enough fluid to keep your pee (urine) pale yellow. Wash your hands often with soap and water. If you cannot use soap and water, use hand pathology transcriptionist. Make sure that all people in your [...] too much water in your body. Take tsbk-nfw-chdilfw and prescription medicines only as told by [...] 01/08/2009 Document Revised: 11/14/2019 Document Reviewed: 12/31/2018 [employer] ([employer] Patient Education 2020 [email or web address]. 08/30/2022 14:06:54 How to Use an Incentive [...] 12/03/2007 Document Revised: 08/15/2018 Document Reviewed: 06/05/2018 [employer] ([employer]) Patient Education 2020 [email or web address]. 08/30/2022 14:06:29 Radial Fracture Radial Fracture A [...] applicable. This may take several hours. Take lnha-mtx-pijoena and prescription medicines only as told by [...] 01/03/2007 Document Revised: 07/17/2018 Document Reviewed: 07/17/2018 [employer] ([employer]) Patient Education 2020 [email or web address]. 08/30/2022 14:06:14 Monitored Anesthesia Care, Care After [...] before eating solid foods. General instructions Take zwnt-fdl-iztavuy and prescription medicines only as told by [...] 11/12/2016 Document Revised: 10/21/2018 Document Reviewed: 11/12/2016 [employer] ([employer]) Patient Education 2020 [email or web address]. 08/30/2022 14:06:06 AH - Post Axillary Block [...] 08/29/2022 09:30:59 With:MARIN DOSS DO, Orthopedic Address: [address] [place] [phone] When: Unknown Comments:CALL DR DIAZ OFFICE FOR A FOLLOW UP APPOINTMENT. CALL DR DOSS WITH ANY QUESTIONS OR CONCERNS. GO TO THE EMERGENCY ROOM WITH ANY URGENT CONCERNS. [facility] 08-30-2022 Summary of episod e note Discharge Instructions Thank you for allowing [facility] to assist you with your healthcare needs. [...] EMERGENCY ROOM WITH ANY URGENT CONCERNS. Where: [address] [place] [phone] Allergies penicillin (Anaphylactoid reaction) Medications Please ask [...] and suzan droe KOE done) Hycet, Lorcet, Tropic, Verdrocet, Vicodin, Xodol, Zamicet What is the [...] may report side effects to FDA at [phone]. What other drugs will affect acetaminophen and [...] affect acetaminophen and hydrocodone, including prescription and whnq-qhh-gkcrout medicines, vitamins, and herbal products. Not all [...] to ensure that the information provided by [employer]. ('[employer]') is accurate, up-to-date, and complete, but no guarantee is made to that effect. Drug information contained herein may be time sensitive. [employer] information has been compiled for use by healthcare practitioners and consumers in the [place] and therefore [employer] does not warrant that uses outside of the [place] are appropriate, unless specifically indicated otherwise. [employer] drug information does not endorse drugs, diagnose patients or recommend therapy. [employer] drug information is an informational resource designed [...] effective or appropriate for any given patient. [facility] does not assume any responsibility for any aspect of healthcare administered with the aid of information [facility] provides. The information contained herein is not intended to cover all possible uses, directions, precautions, warnings, drug interactions, allergic reactions, or adverse effects. If you have questions about the drugs you are taking, check with your doctor, nurse or pharmacist. Copyright 2875-1039 [facility] kid[facility]. Version: 16.03. Revision Date: 09/07/2020. Education Materials [...] juice). ? Low-calorie sports drinks. Eat bland, qsnk-ev-llxwui foods in small amounts as you are able, such as: ? Bananas. ? Applesauce. ? Rice. ? Low-fat (lean) meats. ? Carlin. ? Crackers. Avoid drinking fluids that have a lot of sugar or caffeine in them. This includes energy drinks, sports drinks, and soda. Avoid alcohol. Avoid spicy or fatty foods. General instructions Take dndt-rgt-gfurakf and prescription medicines only as told by your doctor. Drink enough fluid to keep your pee (urine) pale yellow. Wash your hands often with soap and water. If you cannot use soap and water, use hand pathology transcriptionist. Make sure that all people in your [...] too much water in your body. Take nelp-oxt-vrqmrit and prescription medicines only as told by [...] 01/08/2009 Document Revised: 11/14/2019 Document Reviewed: 12/31/2018 [employer] Patient Education 2020 [employer]. How To Use an Incentive Spirometer [...] 12/03/2007 Document Revised: 08/15/2018 Document Reviewed: 06/05/2018 [employer] Patient Education 2020 [employer] ([employer]. Radial Fracture A radial fracture is [...] applicable. This may take several hours. Take ndsg-bpn-tdpseda and prescription medicines only as told by [...] 01/03/2007 Document Revised: 07/17/2018 Document Reviewed: 07/17/2018 [employer] ([employer]) Patient Education 2020 [employer] ([employer]. Monitored Anesthesia Care, Care After These [...] before eating solid foods. General instructions Take lmhi-lsj-rmggtbm and prescription medicines only as told by [...] 11/12/2016 Document Revised: 10/21/2018 Document Reviewed: 11/12/2016 [employer] Patient Education 2020 [employer] ([employer]. POST AXILLARY BLOCK The purpose of [...] to receive it can visit one of [facility] vaccine clinics. There are many vaccine clinic locations within the [facility]. For locations and available times, please visit [email or web address] [email or web address] It is important to note that some COVID mobile vaccine clinics are held outdoors and may be canceled in rainy or stormy conditions. To learn more about pediatric vaccinations (ages 5-11), we invite you to visit the [facility] webpage. https://www.[email or web address].org/p [email or web address]-Zhetm-Jrvczmfadac-Freq nbpnsu-Ialjm-Qjsdyfwjb.html To learn more about the COVID-19 vaccine, we invite you to visit the [facility] website for a list of frequently asked questions. https://[employer]/assets/Patie bmc-eyx-Rtfbtmky/txszg-Yewcrhm-U requently_Asked-Questions.pdf [facility] Patient Portal Access Instructions: Stay connected with your healthcare team and access your personal medical information anytime with the [facility] Patient Portal.If you would like a full [...] the invitation link: Accept Invitation to [facility].Fill in the required ferreira to create your account. Sign into www.[employer] with your username and password that you [...] you will allow to register on the [employer] Patient Portal for access to your information. You can also access the [employer] [facility] Patient Portal on the [employer] jose. Simply click on Health Records under Health Data and then click on the [employer] logo. HOW TO SAFELY DISPOSE OF PRESCRIPTION [...] Call your local pharmacy or go to [email or web address] to find one close to you.3.Make use of household items: Use cat litter or old coffee grounds to dispose medications if other options are not available. Mix your drugs with these household products, seal them in an airtight container and throw it into the garbage. Call [facility]: [phone] to be sure your drugs can be [...] Patient Education Materials Nausea and Vomiting, Adult, Sdhr-xp-Xlam How to Use an Incentive Spirometer Radial [...] aware that I should contact my doctor. 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 [facility] 08-30-2022 Note ORIGINAL Images acquired, not reported on this accession number. [facility] 08-30-2022 Anesthesiology Consult note Patient: JENNIFER RICHARD [...] Mother Colon cancer Father Procedure history: Bunionectomy ([id number]). Comments: 08/30/2022 11:02 Jw Dubois RN BILATERAL 1998 Neuroma ([id number]). Comments: 08/30/2022 11:03 Jw Dubois RN REMOVAL FROM LEFT ARM Cataract ([id number]). Comments: 08/30/2022 11:04 Jw Dubois RN BOTH [...] Signs(last 24 hrs) Last Charted Heart Rate Scpvzolkn75 bpm (AUG 30 12:40) Resp Rate 14 br/min (AUG 30 12:10) BVK343 mmHg (AUG 30 12:35) DBP69 mmHg (AUG 30 12:35) Measurements from flowsheet : Measurements 08/30/2022 11:05 EST Height 161 cm Height in inches 63.4 inch(es) Admission Weight 70.5 kg Weight Lbs 155.1 lb Big Bar Body Weight 53.29 kg Admission Body Mass Index 27.2 m2 08/29/2022 10:30 EST Height 161 cm Admission Weight 70.5 kg Weight Method Stated Big Bar Body Weight 53.29 kg Pain assessment: Pain [...] Attendee SN - CAt - Role Performed Office Systems Technology Instructor 08/30/2022 12:42 EST SN - CTm - [...] Provider #1 Bedside Time Out AZAM RONDON APRN-SAP PAYROLL CONSULTANT Provider #2 Bedside Time Out Hanna Cooper [...] - Abnormality Type SCAB 08/30/2022 12:06 EST Anderson History and Physical History and Physical Update [...] - DRS - Immobilization Devices SPLINT FIBERGLASS [id number] 1RL/EA OG-4L1 08/30/2022 12:01 EST SN - [...] Attendee SN - CAt - Role Performed SAP PAYROLL CONSULTANT SN - CAt - Role Performed Assembler Musical Equipment 1 SN - CAt - Role Performed Scrub 1 SN - CAt - Role Performed Optical Lens Manufacturing Tech 1 SN - CAt - Role Performed [...] Weight 70.5 kg Weight Lbs 155.1 lb Big Bar Body Weight 53.29 kg Admission Body Mass [...] ethnicity Skin Integrity Intact Mucous Membrane Color Delmar IV Present Present Characteristics of Speech Clear [...] Person #1 We May Share NATALIE DOUGLASS [phone] Designated Person #1 Relationship Daughter Height 161 cm Admission Weight 70.5 kg Weight Method Stated Big Bar Body Weight 53.29 kg Status No, per patient Sleep Apnea Pressure No Sleep Apnea BMI No Sleep Apnea Age Yes Sleep Apnea Neck No Sleep Apnea Gender No Advanced Directives Yes Advance Directive Type [place] Durable Power of Qa Specialist for [place], [place] Declaration (Living Will) Advance Directive Location [...] evident Teaching Method Explanation Preferred Written Language Italian Preferred Spoken Language Italian Pre Procedure/Surgery Education Appropriate expectations, Date/Time of procedure/surgery, Hospital gown requirement worn to OR, Leave valuables, jewelry, wedding ring at home, NPO, 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 Assessment and Plan [place] Society of Anesthesiologists (ASA) physical status classification: Class II. Anesthetic Preoperative Plan Anesthetic technique: General. Postoperative pain management: axillary block. Informed consent: signed by patient. Digitally Signed by AZAM RONDON on 08/30/2022 12:53 PM [facility] 08-30-2022 Note Date of Service 08/30/22 History and Physical Update I have examined the patient; reviewed the History and Physical and there are no changes to the History and Physical unless noted below. Digitally Signed by MARIN DOSS DO on 08/30/2022 12:06 PM [facility] 12-10-2014 History of Past i llness Narrative Problem Noted Date Resolved Date Special screening for malignant neoplasms, colon 12/10/2014 12/10/2014 ASCUS with positive high risk HPV 08/30/2011 12/21/2014 Other and unspecified hyperlipidemia 04/17/2006 07/19/2011 documented as of this encounter (statuses as of 10/05/2022) [facility] History of Past illness Narrative* Problem Noted Date Resolved Date Special screening for malignant neoplasms, colon 12/10/2014 12/10/2014 ASCUS with positive high risk HPV 08/30/2011 12/21/2014 Other and unspecified hyperlipidemia 04/17/2006 07/19/2011 documented as of this encounter (statuses as of 10/16/2022) [facility] History of Past illness Narrative* Problem Noted Date Resolved Date Special screening for malignant neoplasms, colon 12/10/2014 12/10/2014 ASCUS with positive high risk HPV 08/30/2011 12/21/2014 Other and unspecified hyperlipidemia 04/17/2006 07/19/2011 documented as of this encounter (statuses as of 11/15/2022) [facility] History of Past illness Narrative* Problem Noted Date Resolved Date Special screening for malignant neoplasms, colon 12/10/2014 12/10/2014 ASCUS with positive high risk HPV 08/30/2011 12/21/2014 Other and unspecified hyperlipidemia 04/17/2006 07/19/2011 documented as of this encounter (statuses as of 12/15/2022) [facility] History of Past illness Narrative* Problem Noted Date Diagnosed Date Resolved Date Special screening for malign ant neoplasms, colon 12/10/2014 12/10/2014 ASCUS with positive high risk HPV 08/30/2011 12/21/2014 Other and unspecified hyperlipidemia 04/17/2006 07/19/2011 documented as of this encounter (statuses as of 03/30/2023) [facility] [place] [facility] No data available for this section [facility] Evaluation note* 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 documented in this encounter [facility] [place] [facility]* 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 Facial weakness documented in this encounter [facility] [place] [facility]* Diagnosis Cognitive impairment- Primary Unspecified persistent mental disorders due to conditions classified elsewhere documented in this encounter [facility] [place] [facility]* 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 Facial weakness documented in this encounter [facility] Summary Purpose Family History No Family [...] W/INTERP&POSTPROC DIFF WORK STATION Reid Urrutia MD, [address] [place] [address] Mr Imaging Referral ID Status Reason Start Date Expiration Date Visits Requested Visits Authorized [id number] Pending Review Auto-Generat ed Referral 12/14/2022 01/13/2024 1 1 Specialty Diagnoses / Procedures Referred By Contac t Referred To Contact [facility] Diagnoses 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 Procedures CONSULT TO PEDIATRIC ONCOLOGIST OCCUPATIONAL THERAPY EVAL HIGH COMPLEX 60 MINS David Samayoa Jr., MD [address] [place] [address] [facility] Telephone [address] [place] [address] Referral ID Status Reason Start Date Expiration Date Visits Requested Visits Authorized [id number] Authorized PCP Requested Referral Auto-Generate d Referral 10/16/2022 10/16/2023 99 99 Specialty Diagnoses / Procedures Referred By Contac t Referred To Contact [facility] Diagnoses Torres's palsy Procedures MRI BRAIN WO IVCON MRI BRAIN BRAIN STEM W/O CONTRAST MATERIAL David Samayoa Jr., MD [address] [place] [address] Mr Imaging Referral ID Status Reason Start Date Expiration Date Visits Requested Visits Authorized [id number] Authorized Auto-Generat ed Referral 10/16/2022 11/15/2023 1 1 Additional Source Comments INFORMATION SOURCE (unrecogn ized section and content) DATE CREATED AUTHOR 09/01/2021 [facility] DATE CREATED AUTHOR AUTHOR'S ORGANIZ ATION 09/07/2022 [facility] ([place]) DATE CREATED AUTHOR AUTHOR'S ORGANIZ ATION 11/19/2022 [facility] DATE CREATED AUTHOR AUTHOR'S ORGANIZ ATION 12/15/2022 [facility] DATE CREATED AUTHOR AUTHOR'S ORGANIZ ATION 11/17/2023 [facility] Care Team (unrecognized sect ion and content) Care Team Personnel Name: ZHANG MUHAMMAD DO Member Role: Primary Care Physician Address: Address: [address] [place], [place] [address] Care Team Related Persons Name: BACILIO DOUGLASS Source Comments (unrecognize d section and content) In the event this informatio n is protected by the Federal Confidentiality of Alcohol and Drug Abuse Patient Records regulations: The Federal rules restrict any use of the information to criminally investigate or prosecute any alcohol or drug abuse patient.[facility] the event this information is protected by the Federal Confidentiality of Alcohol and Drug Abuse Patient Records regulations: The Federal rules restrict any use of the information to criminally investigate or prosecute any alcohol or drug abuse patient.[facility] the event this information is protected by the Federal Confidentiality of Alcohol and Drug Abuse Patient Records regulations: The Federal rules restrict any use of the information to criminally investigate or prosecute any alcohol or drug abuse patient.[facility] the event this information is protected by the Federal Confidentiality of Alcohol and Drug Abuse Patient Records regulations: The Federal rules restrict any use of the information to criminally investigate or prosecute any alcohol or drug abuse patient.[facility] the event this information is protected by the Federal Confidentiality of Alcohol and Drug Abuse Patient Records regulations: The Federal rules restrict any use of the information to criminally investigate or prosecute any alcohol or drug abuse patient.[facility] Reason for Visit (unrecogniz ed section [...] COMPLEX 45 MINS David Samayoa Jr., MD [address] [facility] [address] [place] [address] [facility] Telephone [address] [place] [address] Referral ID Status Reason Start Date Expiration Date Visits Requested Visits Authorized [id number] Authorized PCP Requested Referral Auto-Generate d Referral 11/14/2022 11/14/2023 99 99 Care Teams (unrecognized sec tion and content) Manager Renewable Energy Relationship Specialty Start Date End Date Sascha Hinojosa MD [address] [place], [place] [phone] PCP - General 12/21/03 Manager Renewable Energy Relationship Specialty Start Date End Date Zhang Muhammad DO [address] [facility] [address] [place], [place] [phone] PCP - General Family Medicine 10/06/22 Manager Renewable Energy Relationship Specialty Start Date End Date Zhang Muhammad DO [address] [place], [place] [phone] PCP - General Family Medicine 10/06/22 Manager Renewable Energy Relationship Specialty Start Date End Date Zhang Muhammad DO [address] [facility] [address] [place] [address] PCP - General Family [facility] 10/06/22 Manager Renewable Energy Relationship Specialty Start Date End Date Zhang Muhammad DO [address] [address] [place], [place] [id number] PCP - General Family [facility] 10/06/22 FOR RECORDS PERTAINING TO PATIENTS WHO [...] BE BASED ON THE PRIMARY CLINICAL RECORDS. [facility]. provides no warranty or guarantee of the accuracy or completeness of information in this document.
--- NOTE | 2024-05-29 23:42 | ECHOCS_ITS ---
Reason For Study: EMBOLI Procedure This was a 2D Doppler, Color Flow transthoracic echocardiogram. The study was technically difficult. Exam performed supine due to recent shoulder surgery. Contrast injection was performed. Left Ventricle Normal LV size. Mid cavitary false tendon noted. The estimated ejection fraction is 65 %. No evidence for diastolic dysfunction. No regional wall motion abnormalities noted. Right Ventricle Normal right ventricle. Normal systolic function. Atria Normal left atrium. Normal right atrium. Mitral Valve The mitral valve is structurally normal. No prolapse or stenosis seen. Tricuspid Valve Normal tricuspid valve. Mild (1+) tricuspid valve insufficiency. Unable to estimate RV systolic pressure due to insufficient tricuspid regurgitant envelope. Aortic Valve The aortic valve is not well visualized in the short axis view. There is no aortic stenosis. Pulmonic Valve The pulmonic valve is not well visualized. Great Vessels Normal aortic root. The pulmonary artery is normal size. Inferior vena cava collapse with respiration. Pericardium/Pleural No pericardial effusion. Medication Diluted definity 1.5ml given slow IV push to enhance endocardial definition. MMode/2D Measurements & Calculations LVIDd: 3.8 cm IVSd: 0.87 cm Ao root diam: 2.9 cm LVIDs: 2.5 cm LVPWd: 0.86 cm RVDd: 2.2 cm FS: 33.9 % LAV(MOD-bp): 36.4 ml LVAd ap4: 30.1 cm2 SV(MOD-sp4): 68.2 ml LAV(MOD-bp) Indexed: 20.4 ml/m2 LVLd ap4: 7.5 cm LAV(MOD-sp2): 35.2 ml EDV(MOD-sp4): 98.8 ml LAV(MOD-sp4): 34.8 ml EDV(sp4-el): 102.3 ml LVAs ap4: 15.8 cm2 LVLs ap4: 6.8 cm ESV(MOD-sp4): 30.7 ml ESV(sp4-el): 31.2 ml EF(MOD-sp4): 69.0 % EF(sp4-el): 69.5 % SV(sp4-el): 71.1 ml LA A4 area: 14.3 cm2 LA dimension(2D): 2.8 cm RA A4 area: 10.7 cm2 TAPSE: 1.9 cm Time Measurements MV dec time: 0.24 sec Doppler Measurements & Calculations MV E max matti: 70.1 cm/sec Lat Peak E' Matti: 7.3 cm/sec Med Peak E' Matti: 8.0 cm/sec MV A max matti: 80.1 cm/sec E/E' lat: 9.7 E/E' med: 8.8 MV E/A: 0.88 MV V2 max: 91.9 cm/sec MV P1/2t max matti: 76.8 cm/sec Ao V2 max: 103.5 cm/sec MV max P.4 mmHg MV P1/2t: 71.7 msec Ao max P.3 mmHg MV V2 mean: 45.6 cm/sec MV dec slope: 313.5 cm/sec2 Ao V2 mean: 71.3 cm/sec MV mean P.1 mmHg MVA(P1/2t): 3.1 cm2 Ao mean P.3 mmHg MV V2 VTI: 22.2 cm Ao V2 VTI: 18.9 cm AV (velocity ratio): 0.97 LV V1 max: 92.5 cm/sec PA V2 max: 63.5 cm/sec LV V1 max P.4 mmHg PA V2 mean: 47.7 cm/sec LV V1 mean P.9 mmHg LV V1 mean: 65.7 cm/sec LV V1 VTI: 18.4 cm ECHO/Echo Complete W/ Contrast Interpretation Summary The estimated ejection fraction is 65 %. Mild (1+) tricuspid valve insufficiency. No evidence for diastolic dysfunction. Normal LV size. The study was technically difficult. Contrast injection was performed. Ordering Physician: Haroldo Liu Referring Physician: Edel Nickerson Performed By: Josefina Jones RDCS, RVT
[2024-05-30] MEDS: 0.9% Normal Saline (1000mL) 1,000 ML 70 ML IV (00:12)
[2024-05-30] MEDS: Zolpidem Tartrate 5 MG Tablet PO (00:12)
[2024-05-30] MEDS: Escitalopram Oxalate 10 MG Tablet PO (00:13)
[2024-05-30 00:52] LABS: Mucous, Urine 0 SEEN /hpf (<or=2+)
[2024-05-30 00:57] LABS: Color, Urine Yellow (Yellow); Glucose, Dipstick Normal (Normal); Ketone-Dipstick Negative (Negative); Leukocyte Esterase-Dipstick 25 /ul (Negative); Nitrite-Dipstick Negative (Negative); Occult Blood-Urine 150 /ul (Negative); Protein-Dipstick 15 mg/dl (Negative); Specific Gravity, Urine 1.015 (1.002-1.030); Urine Bilirubin Dipstick Negative (Negative); Urine Clarity Clear (Clear); Urine Urobilinogen Normal (Normal)
[2024-05-30 01:23] LABS: Bacteria 1+ /hpf (None Seen); Red Blood Cells-Urine 10-25 SEEN /hpf (0-5); Squamous Epithelial Cells - UA 5-10 SEEN /hpf (5-10); White Blood Cells 5-10 SEEN /hpf (0-5)
[2024-05-30 05:56] VITALS: BP 150/90; PULSE 73; RESP 18; TEMP 36.3; O2SAT 96
[2024-05-30] MEDS: Levothyroxine 75 MCG Tablet PO (05:58)
[2024-05-30] MEDS: Enoxaparin 80 MG/0.8 ML Syringe SC (05:59)
[2024-05-30] MEDS: Acetaminophen 325 MG Tablet 650 MG PO (06:06)
[2024-05-30 06:51] LABS: Absolute Lymphocyte Count 2.73 X10^3/uL (0.83-4.51); Absolute Neutrophil Count 2.3 X10^3/uL (2.0-7.7); Basophil# 0.05 X10^3/uL; Basophil% 0.9 % (0-1); Eosinophil# 0.17 X10^3/uL; Hemoglobin 12.4 g/dL (12.0-15.0); Lymphocyte # 2.73 X10^3/ul (0.83-4.51); Lymphocyte % 48.4 % (19-41); Mean Corp Hgb Conc 33.5 g/dL (32-36); Mean Corpuscular Volume 92.5 fL (81-99); Mean Platelet Vol. 9.3 fl (6.2-12.0); Monocyte# 0.37 X10^3/uL; Monocyte% 6.6 % (0-10); NRBC Flagged by Analyzer 0 % (0-5); Neutrophil # 2.31 X10^3/uL (2.7-7.7); Neutrophil % 40.9 % (47-70); Platelet Count 325 K/mm3 (150-450); RBC Distribution Width CV 12.7 % (11.6-14.6); RBC Distribution Width SD 42.9 fl (35.1-43.9); White Blood Count 5.6 K/mm3 (4.4-11.0)
[2024-05-30 07:22] LABS: ALB/GLOB Ratio 0.9 RATIO (0.9-2.4); AST(SGOT) 12 U/L (15-37); Alanine Aminotransfer ALT/SGPT 14 U/L (13-56); Albumin, Serum 3.5 g/dL (3.2-5.0); Alkaline Phosphatase 76 U/L (45-117); Anion Gap 6 (5-15); BUN 14 mg/dL (7-18); BUN/Creat Ratio 24.4 RATIO (10-20); Calcium,Total 8.8 mg/dL (8.5-10.1); Chloride 110 mmol/L (98-107); Creatinine, Serum 0.57 mg/dL (0.55-1.02); EST Glomerular Filtration Rate 111 mL/min (>60); Est Glom Filt Rate - Afr Amer 134 mL/min (>60); Estimated Creatinine Clearance 63.47 ml/min; Globulin 3.9 g/dL (2.2-4.2); Glucose 104 mg/dL (74-106); Phosphorus 4.2 mg/dL (2.5-4.9); Protein, Total 7.4 g/dL (6.4-8.2); Sodium Level 141 mmol/L (136-145)
[2024-05-30] MEDS: APIXABAN 5 MG TABLET 10 MG PO (09:02)
[2024-05-30] MEDS: Multivitamins,Therapeutic Tablet 1 TABLET PO (09:02)
[2024-05-30 11:09] VITALS: O2SAT 92; O2SAT 97
--- NOTE | 2024-05-30 11:45 | DS.PCM_ITS ---
Providers Date of Admission: 05/29/24 Date of Discharge: 05/30/24 Primary Care Physician: Edel Nickerson MD Reason For Visit: MULTIPLE PE'S & ELEVATED TROPONIN AFTER RECENT Diagnosis Discharge Diagnosis (1) Pulmonary emboli: Status: Acute Code(s): I26.99 - Other pulmonary embolism without acute cor pulmonale Qualifiers: Pulmonary embolism type: multiple subsegmental (without acute cor pulmonale) Qualified Code(s): I26.94 - Multiple subsegmental thrombotic pulmonary emboli without acute cor pulmonale (2) Elevated troponin: Status: Acute Code(s): R79.89 - Other specified abnormal findings of blood chemistry (3) Postoperative complication: Status: Acute Code(s): T81.9XXA - Unspecified complication of procedure, initial encounter Qualifiers: Surgical complication system/body Area: musculoskeletal system Surgical complication type: unspecified Qualified Code(s): M96.89 - Other intraoperative and postprocedural complications and disorders of the musculoskeletal system (4) Overweight (BMI 25.0-29.9): Status: Acute Code(s): E66.3 - Overweight (5) Hypothyroidism: Status: Chronic Code(s): E03.9 - Hypothyroidism, unspecified Qualifiers: Hypothyroidism type: unspecified Qualified Code(s): E03.9 - Hypothyroidism, unspecified Medications at Discharge Home Medications escitalopram oxalate 10 mg tablet (Lexapro) 10 mg PO DAILY 07/20/20 levothyroxine 112 mcg tablet (Synthroid) See Rx Instructions PO DAILY 07/20/20 multivitamin 1 tab PO DAILY 04/10/23 zolpidem 5 mg tablet (Ambien) 5 mg PO QHS PRN insomnia #30 tabs 08/17/23 apixaban 5 mg (74 tabs) tablets in a dose pack (Eliquis DVT-PE Treat 30D Start) See Rx Instructions PO .COMPLEX #74 tabs 05/30/24 Hospital Course Operations None Procedures 2-D Echocardiogram, EKG and - (CTA Chest) Summary of Care Provided Minutes Spent on Discharge: 36 Hospital Course: Patient is a 69-year-old white female who presented to the emergency department at [facility] on 05/29/2020 for due to shortness of breath. Patient had a right shoulder replacement done at [facility] a few weeks ago and reported that over the last few days she has been feeling more short of breath and not quite herself. She states that she really struggles to exert herself and gets more short of breath with that. She was working with her physical therapist who noticed that she was struggling and thought that she should be evaluated for a blood clot. Her primary care physician in the outpatient setting ordered a CTA which was positive for PE and she was sent to the emergency department. CT did not show any evidence of ventricular strain per her report. She had no leg swelling or chest pain and her only real complaint was dyspnea with exertion and increased fatigue. She had been on aspirin 81 mg daily since surgery and has had no previous history of PE or DVT. Vital signs on presentation showed a temperature of 98, heart rate 79, respiratory rate 16, blood pressure was 165/101, and pulse ox was 98% on room air. CBC on presentation was overtly unremarkable. Coags were normal. Chemistry panel was unremarkable. Her initial troponin was 107 a delta of 110. BNP was normal at 13.7. EKG was unremarkable. Due to her troponin elevation she was admitted the floor. She was initially started on subcu Lovenox and then on the a.m. of 05/30/2025 transition to p.o. Eliquis 10 mg p.o. twice daily which she will continue for 7 days then transition to 5 mg p.o. twice daily for 6 months for treatment of provoked DVT. Echocardiogram was done and showed an EF of 65% with no diastolic dysfunction or wall motion abnormalities and mild tricuspid valve insufficiency. With these findings it was felt she could go home on oral anticoagulation. Risks of oral anticoagulation were discussed with the patient to include predominantly increased risk of bleeding. We did discuss the length of treatment should be about 6 months given this was provoked PE. She was advised to not restrict herself in any way specifically but listen to her body. She was told that she would likely have some increased dyspnea with exertion until PE start to resorb. Lower extremity Dopplers were canceled given it does not exchange architect at this point in time or in the future. We did an ambulatory pulse ox and patient did not require oxygen at rest or with ambulation. Patient was discharged home with new prescription for Eliquis in stable condition on 05/30/2024. Her blood pressure was noted to be intermittently elevated. We did not add any new medication and encouraged her to follow-up with her outpatient provider for reassessment. Discharge diagnoses: Acute bilateral PE without evidence of cor pulmonale Elevated troponin secondary to PE Recent right total shoulder arthroplasty Hypothyroidism Elevated blood pressure History of TBI History of GERD Osteoarthritis Depression Physical Exam Const alert, oriented x3, no apparent distress, average body habitus, no limitations, healthy appearing and well nourished Constitutional Narrative: Very pleasant, older, white female, appears younger than stated age, sitting up in bed, appears comfortable, nontoxic General Appearance: cooperative, comfortable, well kempt and well developed Exam Limitations: no limitations Nutritional Appearance: overweight HEENT normocephalic, head/scalp atraumatic, hearing grossly normal bilaterally and moist oral mucous membranes HEENT Narrative: Mallampati 3, no thrush Eyes Eyes Narrative: No scleral icterus Neck supple Neck Narrative: Trachea midline, no noted thyroid enlargement Resp normal respiratory effort, no retractions, no use of accessory muscles and clear to auscultation bilaterally Resp Narrative: No signs of respiratory distress, tachypnea or conversational dyspnea Auscultation: Negative for rales, rhonchi or wheezes Cardio regular rate, regular rhythm, S1 normal heart sound, S2 normal heart sound, no murmurs, no rub, no gallops and no clicks GI normal to inspection, nondistended, normoactive bowel sounds, soft to palpation and non-tender Extremity no clubbing, cyanosis or edema Extremity Narrative: Right upper extremity in sling, pedal pulses are 2+ bilaterally Skin no jaundice, no petechiae and no mottling Neuro oriented x3 Neuro Narrative: Right arm in sling but all other extremities move without any noted deficits Speech: speech normal Psych affect normal Psych Narrative: Very pleasant, interacts appropriately Weight / BMI Weight Weight: 75 kg Body Mass Index (BMI) 29.2 ABG / Lab / Microbiology Data 05/30/24 05:40 05/30/24 05:40 Laboratory: Laboratory Results - last 24 hr 05/29/24 21:00: WBC 6.5, RBC 3.98 L, Hgb 12.4, Hct 36.3 L, MCV 91.2, MCH 31.2, MCHC 34.2, RDW Std Deviation 41.8, RDW Coeff of Gabo 12.6, Plt Count 328, MPV 9.0, Immature Gran % (Auto) 0.300, Neut % (Auto) 50.1, Lymph % (Auto) 41.7 H, [place] % (Auto) 5.4, Eos % (Auto) 1.7, Baso % (Auto) 0.8, Absolute Neuts (auto) 3.2, Absolute Lymphs (auto) 2.69, Nucleated RBC % 0, PT 13.9, INR 1.1, APTT 25.4, Sodium 138, Potassium 3.7, Chloride 107, Carbon Dioxide 24.0, Anion Gap 7, BUN 17, Creatinine 0.63, Estim Creat Clear Calc 63.59, Est GFR (MDRD) Af Amer 119, Est GFR (MDRD) Non-Af 99, BUN/Creatinine Ratio 26.9 H, Glucose 99, Calcium 9.1, Troponin I High Sens 107 H, B-Natriuretic Peptide 13.7 05/29/24 22:20: Troponin I High Sens 110 H, TSH 1.110 05/30/24 00:45: Urine Color Yellow, Urine Clarity Clear, Urine pH 5.0, Ur Specific [place] 1.015, Urine Protein 15 H, Urine Glucose (UA) Normal, Urine Ketones Negative, Urine Occult Blood 150 H, Urine Nitrite Negative, Urine Bilirubin Negative, Urine Urobilinogen Normal, Ur Leukocyte Esterase 25 H, Urine RBC 10-25 SEEN, Urine WBC 5-10 SEEN, Ur Squamous Epith Cells 5-10 SEEN, Urine Bacteria 1+, Urine Mucus 0 SEEN 05/30/24 05:40: WBC 5.6, RBC 4.00 L, Hgb 12.4, Hct 37.0, MCV 92.5, MCH 31.0, MCHC 33.5, RDW Std Deviation 42.9, RDW Coeff of [place] 12.7, Plt Count 325, MPV 9.3, Immature Gran % (Auto) 0.200, Neut % (Auto) 40.9 L, Lymph % (Auto) 48.4 H, [place] % (Auto) 6.6, Eos % (Auto) 3.0, Baso % (Auto) 0.9, Absolute Neuts (auto) 2.3, Absolute Lymphs (auto) 2.73, Nucleated RBC % 0, Sodium 141, Potassium 4.0, Chloride 110 H, Carbon Dioxide 25.0, Anion Gap 6, BUN 14, Creatinine 0.57, Estim Creat Clear Calc 63.47, Est GFR (MDRD) Af Amer 134, Est GFR (MDRD) Non-Af 111, B UN/Creatinine Ratio 24.4 H, Glucose 104, Calcium 8.8, Phosphorus 4.2, Magnesium 2.0, Total Bilirubin 0.50, AST 12 L, ALT 14, Alkaline Phosphatase 76, Total Protein 7.4, Albumin 3.5, Globulin 3.9, Albumin/Globulin Ratio 0.9 Radiography Diagnostic Testing: Radiology Impression Echocardiogram 05/29/24 23:42 Interpretation Summary The estimated ejection fraction is 65 %. Mild (1+) tricuspid valve insufficiency. No evidence for diastolic dysfunction. Normal LV size. The study was technically difficult. Contrast injection was performed. Ordering Physician: Haroldo Liu Referring Physician: Edel Nickerson Performed By: Josefina Jones, NATE, RVT D/C Instructions Discharge Diet: Low fat / Low cholesterol Discharge Activity: Return to Normal Activity (With previous restrictions related to right shoulder) Meaningful Use Info Meaningful Use Meaningful Use Diagnoses (Choose all that apply): VTE Ischemic Stroke Statin Dosing Therapy Reference: STATIN DOSE THERAPY REFERENCE: * Patients > 75 years receive moderate or high dose statin therapy. * Patients 75 years or YOUNGER should receive HIGH intensity statin dose unless contraindicated. You will be required to document reason for non-treatment if statin daily dose does not meet guidelines. HIGH DOSE STATIN THERAPY DAILY Atorvastatin > than or = to 40 mg Rosuvastatin > than or = to 20 mg Amlodipine + Atorvastatin > than or = to 2.5/40 mg Ezetimibe + Simvastatin 10/80 mg Simvastatin 80mg VTE Anticoag overlap given w/in hospital stay or rx'd at fl?: No Pt receive overlap for 5 days?: No Reason overlap not ordered, prescribed, or given for 5 days: Treatment Not Indicated Discharge Plan Admission Admit Date/Time: 05/29/24 22:41 Primary Reason for Your Visit: Shortness of breath with exertion Attending Provider: Danni So Primary Care Provider: Edel Nickerson Consulting Providers: Haroldo Liu Instructions Additional Instructions / Restrictions: 1. You are found to have bilateral blood clots in your lungs without any signs of heart strain. Treatment for this is blood thinner at a high dose 10 mg twice daily for 7 days then 5 mg twice daily for 3 to 6 months. Since this is your first episode of blood clots and with a clot burden noted on your CAT scan I would read commend 6 months of treatment. 2. You may notice that you are still short of breath with exertion but this should improve with time on appropriate therapy for your blood clots. 3. Would recommend your primary care doctor check a CBC or complete blood count to make sure your blood counts are stable while you are on blood thinners in 7 to 14 days Discharge Orders/Prescriptions Prescriptions: New Eliquis DVT-PE Treat 30D Start 5 mg (74 tabs) tablets,dose pack See Rx Instructions .ROUTE .COMPLEX Qty: 74 0RF Rx Instructions: orally per package directions Continued levothyroxine [Synthroid] 112 mcg tablet See Rx Instructions PO DAILY Rx Instructions: 75 mcg PO daily; escitalopram oxalate [Lexapro] 10 mg tablet 10 mg PO DAILY multivitamin Tablet 1 tab PO DAILY zolpidem [Ambien] 5 mg tablet 5 mg PO QHS PRN (Reason: insomnia) Qty: 30 3RF Referrals / Follow Up: Edel Nickerson MD [Primary Care Provider] - Within 1 Week Disposition Disposition (needs filled in before D/C Order can be placed): Home, Self Care Charges/Coding Visit Charges Inpatient E&M: 55185 Disch Hosp >30min
--- NOTE | 2024-05-30 12:22 | CASEMGMT ---
KEAGAN ALEJANDRO Assessment Face to Face with patient for initial transition planning/care coordination assessment. KEAGAN ALEJANDRO introduced self and role at [facility], pt voices understanding. Pt is A&Ox4 and is resting comfortably in bed and is calm. Care providers, pharmacy, and demographics verified. Admitting dx: Multiple PE's, Elevated Trop LACE Strata: 1 PCP: Edel Nickerson Specialists: Denies [facility] Insurance: [facility] A/B, [place] Prescription Benefit: Yes LNOK: Katey Shaw (Angelita), Jair Richard (Son) Living Arrangements: Pt lives alone in a ground level condo with a flat entrance ADLs/IADLs: Ind Transportation: Self, friends. Denies concerns DME: Pt has an arm sleeve on from a recent shoulder injury. Denies further needs HHC/SNF: Denies history or needs Pt?s goal: home Plan: Home no needs. Follow for new blood thinning Rx. Pt denies HHC or OP Tx needs. Pt states that she feels safe discharging home with no additional needs at this time. Report given to [employer] CM. Mila Hinojosa RN, CM
--- NOTE | 2024-05-30 12:50 | CASEMGMT ---
Physician advisor Dr Stephens and attending reviewed patient's inpatient status against Medicare guidelines and determined patient is appropriate for outpatient status. Patient notified of status change from inpatient to outpatient. PRICE form provided and signed by patient. Patient provided a copy and original placed in patient?s chart. Patient is discharging on Eliquis. KEAGAN ALEJANDRO called [facility] to clarify copay, copay is $566. KEAGAN ALEJANDRO updated patient and provided with Eliquis savings card. Patient had no further questions or concerns.
[2024-05-30 13:36] VITALS: BP 145/83; PULSE 73; RESP 16; TEMP 36.3; O2SAT 97
--- OUTSIDE RECORDS SUMMARY | 2024-05-30 13:57 | XMS RPT_ITS | CCD ---
Author Organization [facility] Care Team Providers Care Line Installer Repairer Name Role Phone Rand Melgar MD Unavailable [phone] KEAGAN Schroeder RN, Mague Li Unavailable UnavailRand Eubanks MD Unavailable [phone] Boo ASHFORD, Zeinab Benton Unavailable Maddie Neil Unavailable Unavailable ZHANG MUHAMMAD DO Primary Care Physician TAYLER PIERRE, DR. HOYOS Primary Care Unavaila MARIN Gallegos DO Attending Unavailable ZHANG MUHAMMAD DO Primary Care Unavailable MARIN DOSS DO Attending Unavailable Sascha Hinojosa MD Primary Care Provider [phone] Zhang Muhammad DO Primary Care Provider DAVID [...] (3 sources) penicillin v drug allergy 04-12-20 [facility] (1 source) Penicillin; Translations: [penicillin] Drug Allergy Anaphylactoid reaction (disorder) [facility] (7 sources) Penicillins; Translations: [PENICILLINS] Propensity to adverse reactions 05-18-20 [facility] Work Phone: Medications Current Medications Medication Drug [...] One tablet by mouth daily LEVOTHYROXINE SODIUM [id number] Rand Melgar MD Start: 03-29-2017 SYNTHROID 112 MCG TABS LEVOTHYROXINE SODIUM [id number] Maddie Neil Start: 03-12-2017 take 1 tablet by james th once daily levothyroxine (SYNTHROID) 112 mcg tablet TAKE 1 TABLET BY MOUTH EVERY DAY 30 tablet 3 04/13/2017 Active Start: 03-12-2017 take 1 tablet by james th once daily SYNTHROID 112 MCG TABS One tablet by mouth daily LEVOTHYROXINE SODIUM [id number] Zeinab Haddad 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 Normal [facility] CNOVon 12-19-2022 CNOV Office Visit (BHASKAR ) JENNIFER RICHARD ([id number]) 1955 F NFR Date Time Provider Department 12/19/22 11:00 AM ZABRINA ROJAS During your visit today, we recorded the following information about you: Pulse Respiration Blood pressure Weight 82/minute 16/minute 128/88 74.6 kg Zabrina Rojas PA-C 12/21/2022 8:10 AM Signed [facility] Name: Jennifer Richard [...] She has an upcoming trip planned to [place] for several months. We will reconsider need [...] now. Will reevaluate after she returns from [place] at follow up with Dr. Samayoa. Will [...] 250 mg (more content not included)... Normal [facility] 12-14-2022 [facility] HNO ID: [id number] Author: Robina Shanta, RT(R) Service: Radiology Author [...] Adriana(R) December 14, 2022 4:21 PM [facility] MRI 3D POST PROCESSINGon MRI 3D POST PROCESSING * * *Final Report* * * DATE OF EXAM: Dec 14 2022 4:24PM [facility] 0280 - MRI 3D POST PROCESSING / [...] = Focal Lesions 2 = Beginning of Franklin 3 = Diffuse Involvement of Entire Region [...] results from the analysis charts for details. Acoustic Warfare Analyst: BOLA Transcribe Date/Time: Dec 14 2022 10:08P Dictated by : CINDY BARRAZA DO This examination was interpreted and the report reviewed and electronically signed by: CINDY BARRAZA DO on Dec 14 2022 (more content not included)... Normal [facility] MRI BRAIN WO IVCONon 023 MRI BRAIN [...] = Focal Lesions 2 = Beginning of Franklin 3 = Diffuse Involvement of Entire Region [...] results from the analysis charts for details. Acoustic Warfare Analyst: PSCMila Transcribe Date/Time: Dec 14 2022 10:08P Dictated by : CINDY BARRAZA DO This examination was interpreted and the report reviewed and electronically signed by: CINDY BARRAZA DO on Dec 14 2022 10:13PM EST (more content not included)... Normal [facility] CNTHERAPYon 12-12-2022 CNTHERAPY OT/PT/Speech Visit (SPTBR) JENNIFER RICHARD ([id number]) 1955 F NFR Date Time Provider Department 12/12/22 3:00 PM ALMA ROSA RIVERA SPTBR Date Time Provider Department Center 12/12/2022 3:00 PM [id number], WENDY SPTBR [facility] Reason for Visit: [...] VITAMIN B COMPLEX ORAL [facility] (CAROL) JENNIFER RICHARD ([id number]) 1955 F NFR Date Time Provider Department [...] Diagnosis:Facial weakness [R29.810] Order(s):CONSULT TO PHYSICAL THERAPY [1600] Order #: [id number]: 1 FUTURE Prescriptions as of 11/14/2022 - [...] 07/19/2011 ASCUS with positive high risk HPV [[id number]] 08/30/2011 12/21/2014 Special screening for malignant neoplasms, colo*12/10/2014 12/10/2014 DARCI III (cervical intraepithelial neoplasia gra*12/21/2014 Encounter Status:Closed by DAVID SAMAYOA on 11/14/22 [facility] XR FLUORO 1-2 HRS TECH TIMEo n 01-25-2023 XR FLUORO 1-2 HRS TECH TIME ORIGINAL Images acquired, not reported on this accession number. Normal [facility] ([place]) Op Noteon 08-25-2021 Op Note PATIENT: JENNIFER [...] the radial nerve neurapraxia. Diskriter Job ID: [id number] Olivier Ryan MD DOD:08/25/2021 09:58 A ERICA/bay DOT:08/25/2021 10:34 A Job Number: [id number] Document Number: [id number] cc: Olivier Ryan MD [address] [place] [address] Surgical Pathologyon 022 Surgical Pathology [id number] [facility] PATHOLOGY AND LABORATORY MEDICINE [address] [place], [place] [id number] FINAL SURGICAL PATHOLOGY REPORT NAME: JENNIFER RICHARD N [id number] : 1955 66 Y F BILLING NO.: [id number] LOCATION: [address] PROCEDURE 08/25/2021 DATE: SURGEON: OLIVIER [...] characteristics determined by the clinical laboratories of [facility]. They have not been cleared by [...] negativity on decalcified specimens. Professional Performing Location: [place] [address]. DEPARTMENT OF PATHOLOGY AND LABORATORY MEDICINE [place], [place] [address] [email or web address] Normal [facility] Lab Report: PAP I-G HPV Hi R iskon 04-18-2017 GE use only - for LinkLogic import when terms are not otherwise specified Negative Invalid Interpretation Code Negative [facility] Office Visit: est annualon 0 2017 Documentation of current medications (procedure) Done Invalid Interpretation Code [facility] Fall risk assessment No Invalid Interpretation Code [facility] Hemoglobin presence in stool not done Invalid Interpretation Code [facility] Tobacco smoking status NHIS Never Invalid Interpretation Code [facility] Tobacco use CPHS Never smoker Invalid Interpretation Code [facility] Lab Report: Lipid Profileon 04-06-2017 Cholesterol in HDL mass conc 117 mg/dL Invalid Interpretation Code [facility] Cholesterol in LDL mass conc 93 mg/dL Invalid Interpretation Code 0-130 [facility] Cholesterol mass conc 224 mg/dL High 200 [facility] Lipoprotein.pre-be ta mass conc 14 mg/dL Invalid Interpretation Code 5-40 [facility] Triglyceride mass conc 70 mg/dL Invalid Interpretation Code [facility] Lab Report: T4 Free Directon 04-06-2017 T4 free mass conc 1.21 ng/dL Invalid Interpretation Code 0.76-1.46 [facility] Lab Report: Thyroid Stim Hor zoey (TSH)on 04-06-2017 Thyrotropin Qn 0.42 u[iU]/mL Invalid Interpretation Code 0.358-3.74 [facility] Office Visit: est annualon 0 11-05-2015 General categories [Interpretation] of Cervical or vaginal smear or scraping by Cyto stain Normal Invalid Interpretation Code [facility] Office Visit: est annualon 0 12-04-2014 Breast Mammogram screening Normal Bilateral Invalid Interpretation Code [facility] Vital Signs Date Time Vital Sign Value Performing Clinician Faci litajzmyn 10-16-2022 13:05-0400 Body temperature 97.9 [degF] David Samayoa Jr., MD Work Phone: [facility] 10-16-2022 13:05-0400 Body weight 74.39 kg David Samayoa Jr., MD Work Phone: [facility] 10-16-2022 13:05-0400 Diastolic blood pressure 86 mm[Hg] David Samayoa Jr., MD Work Phone: [facility] 10-16-2022 13:05-0400 Heart rate 75 /min David Samayoa Jr., MD Work Phone: [facility] 10-16-2022 13:05-0400 Respiratory rate 18 /min David Samayoa Jr., MD Work Phone: [facility] 10-16-2022 13:05-0400 Systolic blood pressure 129 mm[Hg] David Samayoa Jr., MD Work Phone: [facility] 08-30-2022 15:04-0500 Diastolic Blood Pressure Non-Invasive 62 1 MARIN DOSS DO [facility] 08-30-2022 15:04-0500 Heart rate 65 /min MARIN DOSS DO [facility] 08-30-2022 15:04-0500 Systolic Blood Pressure Non-Invasive 120 1 MARIN SPITTLE DO [facility] 08-30-2022 14:44-0500 Diastolic Blood Pressure Non-Invasive 64 1 MRAIN SPITTLE DO [facility] 08-30-2022 14:44-0500 Heart rate 64 /min MARIN SPITTLE DO [facility] 08-30-2022 14:44-0500 Systolic Blood Pressure Non-Invasive 121 1 MARIN SPITTLE DO [facility] 08-30-2022 14:23-0500 Diastolic Blood Pressure Non-Invasive 69 1 MARIN SPITTLE DO [facility] 08-30-2022 14:23-0500 Heart rate 67 /min MARIN SPITTLE DO [facility] 08-30-2022 14:23-0500 Respiratory rate 13 /min MARIN SPITTLE DO [facility] 08-30-2022 14:23-0500 Systolic Blood Pressure Non-Invasive 135 1 MARIN SPITTLE DO [facility] 08-30-2022 14:10-0500 Respiratory rate 15 /min MARIN SPITTLE DO [facility] 08-30-2022 13:56-0500 Respiratory rate 15 /min MARIN SPITTLE DO [facility] 08-30-2022 13:40-0500 Body temperature 97.7 [degF] MARIN SPITTLE DO [facility] 08-30-2022 13:35-0500 Respiratory Rate - Anes 14 br/min MARIN SPITTLE DO [facility] 08-30-2022 13:30-0500 Respiratory Rate - Anes 15 br/min MARIN SPITTLE DO [facility] 08-30-2022 13:25-0500 Respiratory Rate - Anes 15 br/min MARIN SPITTLE DO [facility] 08-30-2022 13:15-0500 Body temperature 96.8 [degF] MARIN SPITTLE DO [facility] 08-30-2022 12:45-0500 Body temperature 96.8 [degF] MARIN SPITTLE DO [facility] 08-30-2022 12:10-0500 Heart rate 72 /min MARIN SPITTLE DO [facility] 08-30-2022 11:05-0500 Body height 161 cm MARIN SPITTLE DO [facility] 08-30-2022 11:05-0500 Body temperature 97.34 [degF] MARIN SPITTLE DO [facility] 08-30-2022 11:05-0500 Body weight 70.5 kg MARIN SPITTLE DO [facility] 08-30-2022 11:05-0500 Heart rate 63 /min MARIN SPITTLE DO [facility] 2017 12:58-0400 BMI (Body Mass Index) 22.45 kg/m2 Rand Melgar MD [facility] 2017 12:58-0400 Body Temperature 96.5 [degF] Rand Melgar MD [facility] 2017 12:58-0400 Body Temperature 96.49 [degF] Rand Melgar MD [facility] 2017 12:58-0400 BP Diastolic 79 mm[Hg] Rand Melgar MD [facility] 2017 12:58-0400 BP Systolic 123 mm[Hg] Rand Melgar MD [facility] 2017 12:58-0400 Height 162.56 cm Rand Melgar MD [facility] 2017 12:58-0400 Pulse (Heart Rate) 83 /min Rand Melgar MD [facility] 2017 12:58-0400 Respiratory Rate 16 /min Rand Melgar MD [facility] 2017 12:58-0400 Weight 59.33 kg Rand Melgar MD [facility] Encounters Encounter Date Encounter Type Care Provider Facility Start: 03-29-2023 End: 03-29-2023 ambulatory Alma Rosa Rivera PT Work Phone: 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); Facial weakness Start: 12-19-2022 End: 12-19-2022 ambulatory ZABRINA KUMADYALFONSO Facility:[facility] [place] Start: 12-14-2022 Orders Only Reid Urrutia MD Work Phone: Radiology Comment on above: Cognitive impairment (Primary Dx) Start: 12-12-2022 End: 12-12-2022 ambulatory ZHANG MATTHEWSNGER Facility:[facility] [place] Start: 11-14-2022 Telephone encounter David Samayoa MD Work Phone: Sleep Comment on above: Orders Start: 10-16-2022 End: 10-16-2022 Patient encounter procedure David Samayoa MD Work Phone: Neurology Comment on above: 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 ) Start: 08-30-2022 End: 08-30-2022 ambulatory ZHANG MUHAMMAD DO Facility:B Start: 08-30-2022 End: 08-30-2022 SAME DAY STAY MARIN DOSS DO [facility] Start: 08-29-[address] SOHA PHILLIP MD. [...] Author Start: 04-06-2023 Influenza vaccination INFLUENZA (#1) [facility] Start: 08-28-2022 COVID-19 VACCINE (5 - Moderna series) COVID-19 VACCINE (5 - Moderna series) [facility] Start: 08-06-2022 ADVANCE DIRECTIVE DISCUSSION ADVANCE DIRECTIVE DISCUSSION [facility] Start: 08-06-2022 DEPRESSION ASSESSMENT DEPRESSION ASS ESSMENT [facility] Start: 04-06-2022 Influenza vaccination INFLUENZA (#1) [facility] Start: 11-18-2020 LIPID SCREEN LIPID SCREEN [facility] Start: 12-11-2019 Colonoscopy COLONOSCOPY [facility] Start: 12-11-2019 COLORECTAL CANCER SCREENING COLORECTAL CANCER SCREENING [facility] Start: 2019 BONE DENSITY BONE DENSITY [facility] Start: 2019 PNEUMOCOCCAL: 65+ (1 - PCV) PNEUMOCOCCAL: 65+ (1 - PCV) [facility] Start: 11-18-2018 DIABETES SCREEN DIABETES SCREEN [facility] Start: 2017 End: 2017 Appointment Appointment [facility] Start: 2017 End: 04-18-2017 Mammogram, screening Mammogram, Screening, both breasts [facility] Start: 02-26-2017 End: 04-06-2017 Lipid panel Lipid Panel [facility] Start: 02-26-2017 End: 04-06-2017 TSH + Free T4 TSH + Free T4 [facility] Start: 05-03-2016 Mammography MAMMOGRAM [facility] Start: 2004 SHINGRIX VACCINE (1 of 2) SHINGRIX VACCINE (1 of 2) [facility] Start: 1999 COLOGUARD (FIT-DNA) COLOGUARD (FIT-D NA) [facility] Start: [address] COLONOGRAPHY [facility] Start: 1999 FECAL OCCULT BLOOD FECAL OCCULT BLOO D [facility] Start: 1999 SIGMOIDOSCOPY SIGMOIDOSCOPY [facility] Start: 1973 Urine microalbumin profile DTAP,TDAP,TD (1 - Tdap) [facility] Start: 1972 ANNUAL PCP TEAM LEAN COACH ARDEN DISEASE VISIT ANNUAL PCP TEAM CHRONIC DISEASE VISIT [facility] Start: 1972 HEPATITIS C SCREENING HEPATITIS C SC RICHARD [facility] Start: 1955 COVID-19 VACCINE (#1) COVID-19 VACCI NE (#1) [facility] End: 11-15-2023 Mri brain brain stem w/o contrast material MRI BRAIN WO IVCON Radiology Routine Torres's palsy 1 Occurrences starting 10/16/2022 until 11/15/2023 [facility] Work Phone: Comment on above: 1 Occurrences starti ng 10/16/2022 until 11/15/2023 [facility] Payers Date Payer Category Payer Medicare [id number] 2019 Medicare MEDICARE MEDICAR E A AND B [id number] 2019-Present [phone] [place] [address] Medicare [id number] 2019 Unknown [id number] 2019 Unknown ALL [employer] [place] DICARE SUPPLEMENT [id number] 2019-Present [phone] [address] [place] [address] Indemnity [id number] 1955 Unknown [id number] Social History Date Type Detail Facility Start: 07-19-2011 End: 08-29-2022 Tobacco smoking status Never smoked tobacco (finding) [facility] Sex Assigned At Female [facility] Start: 07-19-2011 Tobacco use and exposure Smokeless tobacco non-user [facility] Start: 03-22-2022 End: 12-19-2022 Alcohol intake Current drinker of alcohol (finding) [facility] Start: 09-29-2014 Alcohol [facility] Start: 1955 Sex Assigned At Not on file [facility] Start: 12-12-2022 End: 12-19-2022 History of Social function [facility] Start: 12-12-2022 End: 12-19-2022 Tobacco use panel [facility] National Score (1-100), lower number is lower risk 72 [facility] Functional Status Date Assessment Result Facility 08-30-2022 Functional Status Up to bathroom [facility] 08-30-2022 Functional Status bilateral knee high l [facility] 08-30-2022 Functional Status NPO Status Maintained A [facility] 08-30-2022 Functional Status [facility] Mental Status Date Assessment Result Facility 08-30-2022 Mental Status Orientation Oriented x 4 [facility] 08-30-2022 [facility] 08-30-2022 Mental Status [facility] Clinical Notes 12-10-2014 to 03-29-2023 Alma Rosa Rivera, PT - 03/29/2023 1:03 PM Riky Samayoa Jr., MD - 10/16/2022 1:04 PM EDTTelephone Encounter - Brooklynnjose r Alcala LPN - 10/05/2022 1:27 PM EST Note Date & Type Note Facility 03-29-2023 Note HNO ID: [id number] Author: ALMA ROSA RIVERA PT Service: ? Author Type: Physical Therapist Type: Progress Notes Filed: 08/16/2023 09:50 Note Text: 08/16/[address] [facility] PHYSICAL THERAPY [...] improved movement at left frontalis-improvement noted 03/29/2023. [place] in home exercise program-met as instructed 03/29/2023. [...] improved movement at left frontalis-improvement noted 03/29/2023. [place] in home exercise program-met as instructed 03/29/2023. [...] to following Trigger/tender points: left temporalis, left scaleman Needle length: 15mm .6 in . Arrey used 3, needles removed 3. Dry needling [...] 6: eye br (more content not included)... [facility] 03-29-2023 History of Presen t illness Narrative [...] improved movement at left frontalis-improvement noted 03/29/2023. [place] in home exercise program-met as instructed 03/29/2023. [...] score. OBJECTIVE MEASURES WITH LEVEL OF FUNCTION: [place] Facial Grading System: 87/100 Resting Symmetry: Eye-symmetrical [...] to following Trigger/tender points: left temporalis, left scaleman Needle length: 15mm .6 in . Arrey used 3, needles removed 3. Dry needling [...] Rosa Rivera PT documented in this encounter [facility] 12-19-2022 Note HNO ID: [id number] Author: Zabrina Rojas PA-C Service: ? Author Type: Physician Astrobiologist Type: Progress Notes Filed: 12/21/2022 8:10 AM Note Text: [facility] Name: Jennifer Richard [...] She has an upcoming trip planned to [place] for several months. We will reconsider need [...] now. Will reevaluate after she returns from [place] at follow up with Dr. Samayoa. Will [...] Take by mouth. (more content not included)... [facility] 12-12-2022 Note HNO ID: [id number] Author: Alma Rosa Rivera PT Service: ? [...] will demonstrate improved movement at left frontalis. [place] in home exercise program. 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 [facility] 10-16-2022 History of Presen t illness Narrative [...] which included preparing to see the patient, ghxr-ix-lluh patient care, completing clinical documentation, obtaining and/or reviewing separately obtained history, performing a medically appropriate examination, counseling and educating the patient/family/caregiver, ordering medications, tests, or procedures, communicating with other HCPs (not separately reported), and communicating results to the patient/family/caregiver. documented in this encounter [facility] 10-05-2022 Miscellaneous Notes Pt has appt with Dr. Samayoa for new patient on October 16 2022. Called and spoke with pt about PCP, referring doctor and why she needs to be see. Pt stated she fell in June and got a concussion. She was seen at [facility] Jul 03. State Zhang Manjarrez is her PCP and pt has been under her care since then. Will get results and visit notes from [facility]. Brooklynn Alcala LPN documented in this encounter [facility] 08-30-2022 Hospital Discharg e instructions Patient Education 08/30/2022 14:08:23 Nausea and Vomiting, Adult, Qfze-bp-Vehc Nausea and Vomiting, Adult Nausea is feeling [...] fruit juice). ?Low-calorie sports drinks. Eat bland, iwzw-lu-uqlevr foods in small amounts as you are able, such as: ?Bananas. ?Applesauce. ?Rice. ?Low-fat (lean) meats. ?Grubbs. ?Crackers. Avoid drinking fluids that have a lot of sugar or caffeine in them. This includes energy drinks, sports drinks, and soda. Avoid alcohol. Avoid spicy or fatty foods. General instructions Take msxx-qaf-yhjmben and prescription medicines only as told by your doctor. Drink enough fluid to keep your pee (urine) pale yellow. Wash your hands often with soap and water. If you cannot use soap and water, use hand credit risk specialist. Make sure that all people in your [...] too much water in your body. Take xiwy-cin-semhjql and prescription medicines only as told by [...] 01/08/2009 Document Revised: 11/14/2019 Document Reviewed: 12/31/2018 Dialogic Patient Education 2020 [employer]. 08/30/2022 14:06:54 How to Use an Incentive [...] as possible. If the spirometer includes a high school coach indicator, use this to guide you [...] 12/03/2007 Document Revised: 08/15/2018 Document Reviewed: 06/05/2018 Dialogic Patient Education 2020 [employer]. 08/30/2022 14:06:29 Radial Fracture Radial Fracture A [...] applicable. This may take several hours. Take ubmy-fip-frwmgee and prescription medicines only as told by [...] 01/03/2007 Document Revised: 07/17/2018 Document Reviewed: 07/17/2018 Dialogic Patient Education 2020 [employer]. 08/30/2022 14:06:14 Monitored Anesthesia Care, Care After [...] before eating solid foods. General instructions Take gzya-wdm-fcopjfa and prescription medicines only as told by [...] 11/12/2016 Document Revised: 10/21/2018 Document Reviewed: 11/12/2016 Dialogic Patient Education 2020 [employer]. 08/30/2022 14:06:06 AH - Post Axillary Block [...] at . If after hours, please call [facility] at and ask for the anesthesia department. Follow Up Care 08/29/2022 09:30:59 With:MARIN DOSS DO, Orthopedic Address: [address] [place] [phone] When: Unknown Comments:CALL DR DIAZ OFFICE FOR A FOLLOW UP APPOINTMENT. CALL DR DOSS WITH ANY QUESTIONS OR CONCERNS. GO TO THE EMERGENCY ROOM WITH ANY URGENT CONCERNS. [facility] 08-30-2022 Summary of episod e note Discharge Instructions Thank you for allowing [facility] to assist you with your healthcare needs. [...] EMERGENCY ROOM WITH ANY URGENT CONCERNS. Where: [address] [place] [phone] Allergies penicillin (Anaphylactoid reaction) Medications Please ask [...] and suzan droe KOE done) Hycet, Lorcet, [place], Verdrocet, Vicodin, Xodol, Zamicet What is the [...] may report side effects to FDA at [phone]. What other drugs will affect acetaminophen and [...] affect acetaminophen and hydrocodone, including prescription and btae-esz-ujduawv medicines, vitamins, and herbal products. Not all [...] to ensure that the information provided by [employer]. ('Multum') is accurate, up-to-date, and complete, but no guarantee is made to that effect. Drug information contained herein may be time sensitive. 3scale information has been compiled for use by healthcare practitioners and consumers in the [place] and therefore 3scale does not warrant that uses outside of the [place] are appropriate, unless specifically indicated otherwise. [employer] drug information does not endorse drugs, diagnose patients or recommend therapy. [employer] drug information is an informational resource designed [...] effective or appropriate for any given patient. [facility] does not assume any responsibility for any aspect of healthcare administered with the aid of information [facility] provides. The information contained herein is not intended to cover all possible uses, directions, precautions, warnings, drug interactions, allergic reactions, or adverse effects. If you have questions about the drugs you are taking, check with your doctor, nurse or pharmacist. Copyright 1216-2881 [facility] [employer]. Version: 16.03. Revision Date: 09/07/2020. Education Materials [...] juice). ? Low-calorie sports drinks. Eat bland, xivq-us-dizmog foods in small amounts as you are able, such as: ? Bananas. ? Applesauce. ? Rice. ? Low-fat (lean) meats. ? Grubbs. ? Crackers. Avoid drinking fluids that have a lot of sugar or caffeine in them. This includes energy drinks, sports drinks, and soda. Avoid alcohol. Avoid spicy or fatty foods. General instructions Take qqnq-qlt-utmbdym and prescription medicines only as told by your doctor. Drink enough fluid to keep your pee (urine) pale yellow. Wash your hands often with soap and water. If you cannot use soap and water, use hand credit risk specialist. Make sure that all people in your [...] too much water in your body. Take trjr-hms-bdrvjtt and prescription medicines only as told by [...] 01/08/2009 Document Revised: 11/14/2019 Document Reviewed: 12/31/2018 ElseBeestar Patient Education 2020 Dialogic Inc. How To Use an Incentive Spirometer [...] as possible. If the spirometer includes a high school coach indicator, use this to guide you [...] 12/03/2007 Document Revised: 08/15/2018 Document Reviewed: 06/05/2018 ElseBeestar Patient Education 2020 Dialog[employer] Inc. Radial Fracture A radial fracture is [...] applicable. This may take several hours. Take sbkm-yni-makjceo and prescription medicines only as told by [...] 01/03/2007 Document Revised: 07/17/2018 Document Reviewed: 07/17/2018 Dialogic Patient Education 2020 Dialogic Inc. Monitored Anesthesia Care, Care After These [...] before eating solid foods. General instructions Take jkvy-hvw-oueuxkp and prescription medicines only as told by [...] 11/12/2016 Document Revised: 10/21/2018 Document Reviewed: 11/12/2016 ElseBeestar Patient Education 2020 Dialogic Inc. POST AXILLARY BLOCK The purpose of [...] at . If after hours, please call [facility] at and ask for the anesthesia department. Additional Information VACCINATE! IT SAVES LIVES! Members of the community who have not yet received the COVID-19 vaccine and would like to receive it can visit one of [facility] vaccine clinics. There are many vaccine clinic locations within the [facility]. For locations and available times, please visit [email or web address] It is important to note that some COVID mobile vaccine clinics are held outdoors and may be canceled in rainy or stormy conditions. To learn more about pediatric vaccinations (ages 5-11), we invite you to visit the [facility] webpage. [email or web address]-Freq mrykkf-Dkuvk-[email or web address].[email or web address] To learn more about the COVID-19 vaccine, we invite you to visit the [facility] website for a list of frequently asked questions. [email or web address] [email or web address] [facility] Patient Portal Access Instructions: Stay connected with your healthcare team and access your personal medical information anytime with the [facility] Patient Portal.If you would like a full copy of your medical records, please contact the [facility] Medical Records Department, Sunday through Sunday between 8a.m. and 4:30p.m. Please follow the directions below to access the portal: 1.Access the email account you provided upon registration to the hospital.2.Look for an invitation email from [facility].3.Open the email and access the invitation link: Accept Invitation to [facility]4.Fill in the required ferreira to create your account. Sign into [email or web address] with your username and password that you [...] you will allow to register on the [facility] Patient Portal for access to your information. You can also access the [facility] Patient Portal on the [employer] jose. Simply click on Health Records under Health Data and then click on the [employer] logo. HOW TO SAFELY DISPOSE OF PRESCRIPTION [...] Call your local pharmacy or go to http://BLiNQ Media.Score The Board/4K3Ho9o to find one close to you.3.Make use of household items: Use cat litter or old coffee grounds to dispose medications if other options are not available. Mix your drugs with these household products, seal them in an airtight container and throw it into the garbage. Call [facility]: [phone] to be sure your drugs can be [...] Patient Education Materials Nausea and Vomiting, Adult, Vfwj-fy-Tjdo How to Use an Incentive Spirometer Radial [...] aware that I should contact my doctor. 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 [facility] 08-30-2022 Note ORIGINAL Images acquired, not reported on this accession number. [facility] 08-30-2022 Anesthesiology Consult note Patient: JENNIFER RICHARD [...] Mother Colon cancer Father Procedure history: Bunionectomy ([id number]). Comments: 08/30/2022 11:02 Jw Dubois RN BILATERAL 1998 Neuroma ([id number]). Comments: 08/30/2022 11:03 Jw Dubois RN REMOVAL FROM LEFT ARM Cataract ([id number]). Comments: 08/30/2022 11:04 Jw Dubois RN BOTH [...] Signs(last 24 hrs) Last Charted Heart Rate Gszlmgzwv65 bpm (AUG 30 12:40) Resp Rate 14 br/min (AUG 30 12:10) IES690 mmHg (AUG 30 12:35) DBP69 mmHg (AUG 30 12:35) Measurements from flowsheet : Measurements 08/30/2022 11:05 EST Height 161 cm Height in inches 63.4 inch(es) Admission Weight 70.5 kg Weight Lbs 155.1 lb [place] Body Weight 53.29 kg Admission Body Mass Index 27.2 m2 08/29/2022 10:30 EST Height 161 cm Admission Weight 70.5 kg Weight Method Stated [place] Body Weight 53.29 kg Pain assessment: Pain [...] Attendee SN - CAt - Role Performed Product Finisher 08/30/2022 12:42 EST SN - CTm - [...] Provider #1 Bedside Time Out AZAM RONDON APRN-PHARMACEUTICAL SERVICE REPRESENTATIVE Provider #2 Bedside Time Out Hanna Cooper [...] - Abnormality Type SCAB 08/30/2022 12:06 EST [place] History and Physical History and Physical Update [...] - DRS - Immobilization Devices SPLINT FIBERGLASS [id number] 1RL/EA [id number]-[id number] 08/30/2022 12:01 EST SN - [...] Attendee SN - CAt - Role Performed PHARMACEUTICAL SERVICE REPRESENTATIVE SN - CAt - Role Performed Seater Assembler 1 SN - CAt - Role Performed Scrub 1 SN - CAt - Role Performed Disabilities Services Officer 1 SN - CAt - Role Performed [...] Weight 70.5 kg Weight Lbs 155.1 lb [place] Body Weight 53.29 kg Admission Body Mass [...] ethnicity Skin Integrity Intact Mucous Membrane Color Anton Ruiz IV Present Present Characteristics of Speech Clear [...] Person #1 We May Share NATALIE DOUGLASS [phone] Designated Person #1 Relationship Daughter Height 161 cm Admission Weight 70.5 kg Weight Method Stated [place] Body Weight 53.29 kg Status No, per patient Sleep Apnea Pressure No Sleep Apnea BMI No Sleep Apnea Age Yes Sleep Apnea Neck No Sleep Apnea Gender No Advanced Directives Yes Advance Directive Type [place] Durable Power of Punching Machine Operator for [place], [place] Declaration (Living Will) Advance Directive Location [...] evident Teaching Method Explanation Preferred Written Language Frisian Preferred Spoken Language Frisian Pre Procedure/Surgery Education Appropriate expectations, Date/Time of procedure/surgery, Hospital gown requirement worn to OR, Leave valuables, jewelry, wedding ring at home, NPO, 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 Assessment and Plan [place] Society of Anesthesiologists (ASA) physical status classification: Class II. Anesthetic Preoperative Plan Anesthetic technique: General. Postoperative pain management: axillary block. Informed consent: signed by patient. Digitally Signed by AZAM RONDON on 08/30/2022 12:53 PM [facility] 08-30-2022 Note Date of Service 08/30/22 History and Physical Update I have examined the patient; reviewed the History and Physical and there are no changes to the History and Physical unless noted below. Digitally Signed by MARIN DOSS DO on 08/30/2022 12:06 PM [facility] 12-10-2014 History of Past i llness Narrative Problem Noted Date Resolved Date Special screening for malignant neoplasms, colon 12/10/2014 12/10/2014 ASCUS with positive high risk HPV 08/30/2011 12/21/2014 Other and unspecified hyperlipidemia 04/17/2006 07/19/2011 documented as of this encounter (statuses as of 10/05/2022) [facility] [place] History of Past illness Narrative* Problem Noted Date Resolved Date Special screening for malignant neoplasms, colon 12/10/2014 12/10/2014 ASCUS with positive high risk HPV 08/30/2011 12/21/2014 Other and unspecified hyperlipidemia 04/17/2006 07/19/2011 documented as of this encounter (statuses as of 10/16/2022) [facility] History of Past illness Narrative* Problem Noted Date Resolved Date Special screening for malignant neoplasms, colon 12/10/2014 12/10/2014 ASCUS with positive high risk HPV 08/30/2011 12/21/2014 Other and unspecified hyperlipidemia 04/17/2006 07/19/2011 documented as of this encounter (statuses as of 11/15/2022) [facility] [place] History of Past illness Narrative* Problem Noted Date Resolved Date Special screening for malignant neoplasms, colon 12/10/2014 12/10/2014 ASCUS with positive high risk HPV 08/30/2011 12/21/2014 Other and unspecified hyperlipidemia 04/17/2006 07/19/2011 documented as of this encounter (statuses as of 12/15/2022) [facility] [place] History of Past illness Narrative* Problem Noted Date Diagnosed Date Resolved Date Special screening for malign ant neoplasms, colon 12/10/2014 12/10/2014 ASCUS with positive high risk HPV 08/30/2011 12/21/2014 Other and unspecified hyperlipidemia 04/17/2006 07/19/2011 documented as of this encounter (statuses as of 03/30/2023) [facility] No data available for this section [facility] Evaluation note* 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 documented [facility] this encounter [facility]* 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 Facial weakness documented [facility]* Diagnosis Cognitive impairment- Primary Unspecified persistent mental disorders due to conditions classified elsewhere documented [facility]* 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 Facial weakness documented in this encounter [facility] Summary Purpose Family History No Family History [...] W/INTERP&POSTPROC DIFF WORK STATION Reid Urrutia MD, [address] [place] [address] Mr Imaging Referral ID Status Reason Start Date Expiration Date Visits Requested Visits Authorized [id number] Pending Review Auto-Generat ed Referral 12/14/2022 01/13/2024 1 1 Specialty Diagnoses / Procedures Referred By Contac t Referred To Contact [facility] Diagnoses 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 Procedures CONSULT TO AUDIOVISUAL TECH OCCUPATIONAL THERAPY EVAL HIGH COMPLEX 60 MINS David Samayoa Jr., MD [address] [place] [address] [facility] [address] [place] [address] Referral ID Status Reason Start Date Expiration Date Visits Requested Visits Authorized [id number] Authorized PCP Requested Referral Auto-Generate d Referral 10/16/2022 10/16/2023 99 99 Specialty Diagnoses / Procedures Referred By Contac t Referred To Contact [facility] Diagnoses Torres's palsy Procedures MRI BRAIN WO IVCON MRI BRAIN BRAIN STEM W/O CONTRAST MATERIAL David Samayoa Jr., MD [address] [place] [address] Mr Imaging Referral ID Status Reason Start Date Expiration Date Visits Requested Visits Authorized [id number] Authorized Auto-Generat ed Referral 10/16/2022 11/15/2023 1 1 Additional Source Comments INFORMATION SOURCE (unrecogn ized section and content) DATE CREATED AUTHOR 09/01/2021 [facility] DATE CREATED AUTHOR AUTHOR'S ORGANIZ ATION 09/07/2022 [facility] ([place]) DATE CREATED AUTHOR AUTHOR'S ORGANIZ ATION 11/19/2022 [facility] DATE CREATED AUTHOR AUTHOR'S ORGANIZ ATION 12/15/2022 [facility] DATE CREATED AUTHOR AUTHOR'S ORGANIZ ATION 11/17/2023 [facility] Care Team (unrecognized sect ion and content) Care Team Personnel Name: ZHANG MUHAMMAD DO Member Role: Primary Care Physician Address: Address: [address] [place], [place] [address] Care Team Related Persons Name: BACILIO DOUGLASS Source Comments (unrecognize d section and content) In the event this informatio n is protected by the Federal Confidentiality of Alcohol and Drug Abuse Patient Records regulations: The Federal rules restrict any use of the information to criminally investigate or prosecute any alcohol or drug abuse patient.[facility] the event this information is protected by the Federal Confidentiality of Alcohol and Drug Abuse Patient Records regulations: The Federal rules restrict any use of the information to criminally investigate or prosecute any alcohol or drug abuse patient.[facility] the event this information is protected by the Federal Confidentiality of Alcohol and Drug Abuse Patient Records regulations: The Federal rules restrict any use of the information to criminally investigate or prosecute any alcohol or drug abuse patient.[facility] the event this information is protected by the Federal Confidentiality of Alcohol and Drug Abuse Patient Records regulations: The Federal rules restrict any use of the information to criminally investigate or prosecute any alcohol or drug abuse patient.[facility] the event this information is protected by the Federal Confidentiality of Alcohol and Drug Abuse Patient Records regulations: The Federal rules restrict any use of the information to criminally investigate or prosecute any alcohol or drug abuse patient.[facility] Reason for Visit (unrecogniz ed section and [...] COMPLEX 45 MINS David Samayoa Jr., MD [address] [facility] [address] [place] [address] [facility] [address] [place] [address] Referral ID Status Reason Start Date Expiration Date Visits Requested Visits Authorized [id number] Authorized PCP Requested Referral Auto-Generate d Referral 11/14/2022 11/14/2023 99 99 Care Teams (unrecognized sec tion and content) Line Installer Repairer Relationship Specialty Start Date End Date Sascha Hinojosa MD [address] [place], [place] [phone] PCP - General 12/21/03 Line Installer Repairer Relationship Specialty Start Date End Date Zhnag Muhammad DO [address] [facility] [address] [place], [place] [phone] PCP - General Family Medicine 10/06/22 Line Installer Repairer Relationship Specialty Start Date End Date Zhang Muhammad DO [address] [place], [place] [phone] PCP - General Family Medicine 10/06/22 Line Installer Repairer Relationship Specialty Start Date End Date Zhang Muhammad DO [address] [facility] [address] [place] [address] PCP - General Family [facility] 10/06/22 Line Installer Repairer Relationship Specialty Start Date End Date Zhang Muhammad DO [address] [facility] [address] [place], [place] [phone] PCP - General Family [facility] 10/06/22 FOR RECORDS PERTAINING TO PATIENTS [...] BE BASED ON THE PRIMARY CLINICAL RECORDS. [facility]. provides no warranty or guarantee of the accuracy or completeness of information in this document.
== END 2024-05-30 13:45 | disposition home or self-care (01) ==
LOC: ED 21:48 → PCU 22:33
PROVIDERS: Admitting Provider Internal Medicine; Emergency Provider Emergency Medicine; PCP Family Medicine; Visit Provider Internal Medicine
DX: I26.94 Multiple subsegmental thrombotic pulmonary emboli without acute cor pulmonale (principal); I26.99 Other pulmonary embolism without acute cor pulmonale; E03.9 Hypothyroidism, unspecified; K21.9 Gastro-esophageal reflux disease without esophagitis; R79.89 Other specified abnormal findings of blood chemistry; R53.83 Other fatigue; R03.0 Elevated blood-pressure reading, without diagnosis of hypertension; R06.00 Dyspnea, unspecified; Z79.82 Long term (current) use of aspirin; Z79.899 Other long term (current) drug therapy; Z79.890 Hormone replacement therapy; F32.A Depression, unspecified; G89.29 Other chronic pain; Y83.1 Surgical operation with implant of artificial internal device as the cause of abnormal reaction of the patient, or of later complication, without mention of misadventure at the time of the procedure; T81.718A Complication of other artery following a procedure, not elsewhere classified, initial encounter
CPT/HCPCS: 36415; 71275; 80048; 80053; 81001; 83735; 83880; 84100; 84443; 84484; 85025; 85610; 85730; 93005; 93306; 94668; 96372; 99221; 99283; J7030; Q9957; Q9967; A4216; C8929; G0378

== ENCOUNTER → 2024-05-29 | Outpatient (CLI) | payer MEDICARE, BC, SELFPAY ==
--- NOTE | 2024-05-29 16:36 | CT_ITS ---
We are attempting to reach an attending provider to discuss findings. An addendum with communication details will be sent when the communication is complete. STUDY: CTA CHEST REASON FOR EXAM: Female, 69 years old. SUDDEN ONSET DYSPNEA RADIATION DOSAGE (If Supplied By Facility): CTDIvol = ( 18.93 ) mGy, DLP = ( 518.84 ) mGycm TECHNIQUE: The examination was performed with the intravenous administration of IV 100mL Isovue-370. Post-processing of the angiographic images was performed, with multiplanar reformation and 3D reconstruction. Individualized dose optimization techniques were used for this CT. COMPARISON: None. FINDINGS: Tubes and lines: 1. No life-support noted. CTA: PULMONARY ARTERIES: There is normal configuration and contrast opacification of main pulmonary outflow tract, and normal appearance of the proximal pulmonary arteries bilaterally. There is however thrombus in the distal RIGHT pulmonary artery at its bifurcation with small fragments of thrombus extending into the RIGHT upper lobe and RIGHT lower lobe pulmonary arteries. There is a small section of thrombus extending into the LEFT lower lobe pulmonary arterial branch extending into the medial basal segment of the LEFT lower lobe. Medial basal pulmonary artery extending into LEFT lower lobe. No evidence of ventricular strain. AORTIC ARCH: There is ectasia of the ascending aorta with maximal transverse dimension of 3.8 cm. No evidence of dissection. Normal appearance of the origin of the great vessels. HEART: Cardiac contour is normal. No evidence pericardial effusion. CT CHEST: LUNGS: [Unremarkable. No mass. No consolidation. PLEURAL SPACES: Unremarkable, no effusion or pneumothorax.. MEDIASTINUM AND LYMPH NODES: Unremarkable. No significant adenopathy. BONES: Diffuse thoracic spondylosis noted. There are postoperative changes involving the RIGHT shoulder. No acute bony changes noted. No acutely acquired canal stenosis. ABDOMEN: Within normal limits. Other: None IMPRESSIONS: 1. There is filling defect/pulmonary embolism involving the distal RIGHT main pulmonary artery extending into the lobar pulmonary artery branches into the RIGHT upper lobe and RIGHT lower lobe I, additional intralobar branch of the lower lobe pulmonary artery extending into the medial basal segment LEFT lower lobe. No evidence of ventricular strain. 2. There is mild ectasia of the ascending aorta without dissection. 3. Normal CT appearance of the heart and pericardium. 4. No focal infiltrate consolidation or effusion noted. Electronically Signed: Carlos Pollard MD at 17:33 EDT , CT/CTA Chest W/WO Contrast IMPRESSION: undefined
== END | disposition home or self-care (01) ==
LOC: CT 16:30
PROVIDERS: PCP Family Medicine; Referring Provider Family Medicine; Visit Provider Family Medicine
DX: R06.00 Dyspnea, unspecified (principal)
CPT/HCPCS: 71275; Q9967

== ENCOUNTER → 2024-06-05 | Outpatient (CLI) | payer MEDICARE, BC, SELFPAY ==
[2024-06-05 17:58] LABS: Absolute Lymphocyte Count 2.12 X10^3/uL (0.83-4.51); Absolute Neutrophil Count 2.8 X10^3/uL (2.0-7.7); Basophil# 0.05 X10^3/uL; Basophil% 0.9 % (0-1); Eosinophil# 0.14 X10^3/uL; Eosinophils% 2.6 % (0-5); Hematocrit 40.1 % (37-47); Lymphocyte # 2.12 X10^3/ul (0.83-4.51); Lymphocyte % 38.9 % (19-41); Mean Corp Hgb Conc 32.4 g/dL (32-36); Mean Corpuscular Hgb 30.2 pg (27.0-32.0); Mean Corpuscular Volume 93.3 fL (81-99); Mean Platelet Vol. 9.8 fl (6.2-12.0); Monocyte# 0.36 X10^3/uL; Monocyte% 6.6 % (0-10); NRBC Flagged by Analyzer 0 % (0-5); Neutrophil # 2.78 X10^3/uL (2.7-7.7); Platelet Count 306 K/mm3 (150-450); RBC Distribution Width CV 12.9 % (11.6-14.6); RBC Distribution Width SD 44.1 fl (35.1-43.9); White Blood Count 5.5 K/mm3 (4.4-11.0)
[2024-06-05 18:09] LABS: Ferritin 81 ng/mL (8-252); Iron 85 ug/dL (50-170); Iron Binding Capacity,Total 335 ug/dL (250-450); PERCENT IRON SATURATION 25.4 % (15.0-55.0)
== END | disposition home or self-care (01) ==
LOC: MFPLAB 13:55
PROVIDERS: PCP Family Medicine; Referring Provider Family Medicine; Visit Provider Family Medicine
DX: I26.99 Other pulmonary embolism without acute cor pulmonale (principal)
CPT/HCPCS: 36415; 82728; 83540; 83550; 85025

== ENCOUNTER → 2024-07-23 | Outpatient (CLI) | payer MEDICARE, BC, SELFPAY ==
[2024-07-23 12:49] LABS: Anion Gap 7 (5-15); BUN 25 mg/dL (7-18); Calcium,Total 9.2 mg/dL (8.5-10.1); Chloride 101 mmol/L (98-107); Creatinine, Serum 0.86 mg/dL (0.55-1.02); EST Glomerular Filtration Rate 69 mL/min (>60); Est Glom Filt Rate - Afr Amer 84 mL/min (>60); Glucose 92 mg/dL (74-106); Potassium 4.2 mmol/L (3.5-5.1); Sodium Level 136 mmol/L (136-145)
== END | disposition home or self-care (01) ==
LOC: LAB 11:50
PROVIDERS: PCP Family Medicine; Referring Provider Nurse Practitioner Family; Visit Provider Nurse Practitioner Family
DX: I10 Essential (primary) hypertension (principal)
CPT/HCPCS: 36415; 80048

== ENCOUNTER → 2024-08-05 | Outpatient (CLI) | payer MEDICARE, BC, SELFPAY ==
--- NOTE | 2024-08-05 09:33 | RAD_ITS ---
STUDY: X-RAY CHEST REASON FOR EXAM: Female, 69 years old. bronchitis TECHNIQUE: PA and lateral views of the chest. COMPARISON: None. FINDINGS: The lungs are clear and expanded. There is no demonstrated pleural abnormality. Normal size heart. Normal mediastinum and neel. Normal visualized pulmonary arteries. Normal visualized aortic arch and descending thoracic aorta. Normal visualized thoracic spine. Status post right shoulder reverse arthroplasty. There is no demonstrated abnormality of the visualized soft tissue structures of the upper abdomen. RAD/Chest PA and Lateral IMPRESSION: No active disease. Electronically Signed: Carlos Macias MD at 22:01 EST ,
== END | disposition home or self-care (01) ==
LOC: MTRAD 09:31
PROVIDERS: PCP Family Medicine
DX: J40 Bronchitis, not specified as acute or chronic (principal)
CPT/HCPCS: 71046

== ENCOUNTER → 2024-08-08 | Outpatient (CLI) | payer MEDICARE, BC, SELFPAY ==
[2024-08-18 13:07] LABS: HPV APTIMA, High Risk Positive (Negative)
== END | disposition home or self-care (01) ==
LOC: LABSPEC 16:52
PROVIDERS: PCP Family Medicine; Referring Provider Obstetrics & Gynecology; Visit Provider Obstetrics & Gynecology
DX: Z78.0 Asymptomatic menopausal state (principal); Z12.4 Encounter for screening for malignant neoplasm of cervix
CPT/HCPCS: 87624; 88175; G0145

== ENCOUNTER → 2024-09-24 | Outpatient (CLI) | payer MEDICARE, BC, SELFPAY ==
--- NOTE | 2024-09-24 13:01 | BI_ITS ---
PROCEDURE: SCRN MAMM (CAD)W/KENRICK BILAT REASON FOR EXAM: Routine yearly screening mammography. TECHNIQUE: Bilateral diagnostic digital breast tomosynthesis with 2D and 3D images. Computer aided detection. COMPARISON: Prior exam(s) 06/26/2023 FINDINGS: The breasts are almost entirely fatty. No suspicious masses, suspicious cluster of calcifications, architectural distortion or secondary sign of malignancy is identified in either breast. Benign round calcifications are seen in both breasts. Radiopaque clips are seen in the right breast. The biopsies were benign. Post biopsy sites are stable. A stable 2 mm well-circumscribed isodense mass in the superior outer aspect of the right breast is noted. BI/SCRN MAMM (CAD)W/KENRICK BILAT IMPRESSION: BI-RADS 2: BENIGN. RECOMMEND ANNUAL MAMMOGRAPHIC SCREENING. Follow-up code: Routine Follow-up Reading Location: [id number]
== END | disposition home or self-care (01) ==
LOC: OPBI 13:00
PROVIDERS: PCP Family Medicine; Referring Provider Obstetrics & Gynecology; Visit Provider Obstetrics & Gynecology
DX: Z12.31 Encounter for screening mammogram for malignant neoplasm of breast (principal)
CPT/HCPCS: 77063; 77067

== ENCOUNTER → 2024-10-08 | Outpatient (CLI) | payer MEDICARE, BC, SELFPAY ==
--- NOTE | 2024-10-08 13:50 | EGD_PTH ---
PATIENT: ZAID ZULETA [facility] U#:[id number] AGE/SX: 69/F ROOM: RE10/08/[address]: Dr. Rand Melgar MD : 1955 BED: DIS: 10/08/2024 SPEC #: [id number] RECD: 10/09/24 10:35 STATUS: MONICA MARIA #: [id number] TOD: 10/08/24 13:[address]: Rand Melgar DEPT: SURGICAL PATHOLOGY RECD BY: Toñito Whitlock ENTERED: 10/09/24 10:35 SP TYPE: EGD BIOPSY OTHR DR: Edel Nickerson MD Tissues: A - Uterine cervix, NOS B - Endocervical Procedures: Surgery Specimen Level IV HEADER OPERATION: Colposcopy PRE-OP DIAGNOSIS: DARCI I TISSUE SUBMITTED: A- 2o'clock, B- ECC MICROSCOPIC DIAGNOSIS a. Cervix, 2 o'clock, biopsy: * Low grade OLGA (DARCI 1). * IHC for p16 is negative for block positivity. b. Endocervix, curettage: * Squamous atrophy with atypia, cannot rule out low grade OLGA (DARCI 1). * Negative for high grade dysplasia. * IHC for p16 is negative for block positivity. MICROSCOPIC DESCRIPTION Slides are reviewed. These tests were developed and their performance characteristics determined by [facility]. They may not have been cleared or approved by the U.S. Food and Drug Administration. The FDA has determined that such clearance or approval is not necessary. The above immunohistochemical/dualISH markers are ordered and reviewed by the Pathologist. GROSS DESCRIPTION Specimen A-received in formalin labeled, Zaid Zuleta, and designated 2:00, is a becerra, smooth, irregular shaped, soft, tissue fragment with scant material that aggregates to 0.4 x 0.4 and 0.2 cm. Totally submitted in one cassette.Specimen B-received in formalin labeled, Zaid Zuleta, and designated ECC, is a scant amount red-brown, hemorrhagic, soft tissue fragments and mucus that aggregate to 0.3 x 0.2 x 0.2 cm. Totally submitted in one cassette.NoryK. 10/09/2024 CPT:32389q0, 05602, 82430
== END | disposition home or self-care (01) ==
LOC: LABSPEC 16:17
PROVIDERS: PCP Family Medicine; Referring Provider Obstetrics & Gynecology; Visit Provider Obstetrics & Gynecology
DX: N87.0 Mild cervical dysplasia (principal)
CPT/HCPCS: 88305

== ENCOUNTER → 2024-10-20 | Outpatient (CLI) | payer MEDICARE, BC, SELFPAY ==
--- NOTE | 2024-10-20 15:22 | CT_ITS ---
PROCEDURE: CTA CHST, ABD, PEL W AND/OR WO REASON FOR EXAM: POST OP SOB TECHNIQUE: CTA imaging of the chest with intravenous contrast and 3D reconstructions. CT imaging of the abdomen and pelvis using the same intravenous contrast dose. IV CONTRAST: 100 cc Omnipaque 350 was administered. COMPARISON: None. FINDINGS: CHEST CTA: Hardware: None. Lymph nodes: No mediastinal hilar or axillary lymphadenopathy. Heart: Normal heart size. No pericardial effusion. RV/LV Diameter Ratio: N/A Thoracic Aorta: No thoracic aortic aneurysm or dissection. Pulmonary Vessels: No evidence of acute pulmonary emboli through the major subsegmental branches. Most Proximal Level of Embolus (if embolus present): N/A Lungs and Airways: The lungs are normally expanded and clear. Pleura: No pleural effusion. No pneumothorax. Bones: Bone windows are unremarkable. ABDOMEN / PELVIS: Liver: Homogeneous attenuation. 9 mm posterior right hepatic low-attenuation lesions, likely simple cysts. Gallbladder: No ductal dilation. Common bile duct is within normal limits. Gallbladder is collapsed. Spleen: Unremarkable. Pancreas: Diffuse fatty atrophy. No ductal dilation or suspicious mass. Adrenals: Unremarkable. Kidneys: Normal renal sizes. No hydronephrosis. Bladder: Urinary bladder is unremarkable. Reproductive Organs: No pelvic mass. Bowel: Stomach is unremarkable. No bowel dilation or wall thickening. Moderate colonic stool. Appendix: Appendix is not visualized. Lymph nodes: No suspicious lymph node enlargement. Vasculature: Major vascular structures are unremarkable. Peritoneum / Retroperitoneum: No ascites. No free air. Bones: Degenerative changes of the spine. CT/CTA Chst, Abd, Pel W and/or WO IMPRESSION: Atherosclerotic calcification, without evidence of dissection, thrombosis or an eurysm. No acute findings in the chest, abdomen and pelvis otherwise. One or more dose reduction techniques were used (e.g., Automated exposure contr ol, adjustment of the mA and/or kV according to patient size, use of iterative reconstruction technique). Reading Location: [facility]
== END | disposition home or self-care (01) ==
LOC: CT 14:58
PROVIDERS: PCP Family Medicine; Referring Provider Family Medicine; Visit Provider Family Medicine
DX: I26.99 Other pulmonary embolism without acute cor pulmonale (principal)
CPT/HCPCS: 71275; 74174; Q9967

== ENCOUNTER → 2025-03-04 | Outpatient (CLI) | payer MEDICARE, BC, SELFPAY ==
--- OUTSIDE RECORDS SUMMARY | 2025-03-04 06:38 | XMS RPT_ITS | CCD ---
Author Organization [facility] Inform ion Partnership [facility] Care Team Providers Care Cheese Cook Name Role Phone Rand Melgar MD Unavailable [phone] KEAGAN Schroeder RN, Mague iL Unavailable Unavaileliot Melgar MD, Rand Griffin Unavailable [phone] Boo MASK LAYOUT DESIGNER, Zeinab Benton Unavailable Maddie Neil Unavailable Unavailable Dr. Sascha Swift Primary Care Provider Dr. Sascha Swift Referring Provider Dr. Breonna Jimenez Attending Provider Dr. Sascha Swift Primary Care Provider Dr. Sascha Swift Referring Provider [phone] Breonna Jimenez Attending Provider ZHANG MUHAMMAD DO Primary Care Physician SABINA PIERRE, DR. HOYOS Primary Care Unavaila MARIN Gallegos DO Attending Unavailable ZHANG MUHAMMAD DO Primary Care Unavailable MARIN DOSS DO Attending Unavailable DO Zhang Muhammad Primary Care Provider Dr. Gabo Bhagat Attending Provider [phone] SHAI Navas Referring Provider Sascha Hinojosa MD Primary Care Provider Zhang Muhammad DO Primary Care Provider [phone] DAVID SAMAYOA Referring Unavailable ZHANG MUHAMMAD Primary Care Unavailable DO Zhang Muhammad M Primary Care Provider DO Zhang Muhammad M Referring Provider Dr. Breonna Jimenez Attending Provider DO Zhang Muhammad M Primary Care Provider DO Zhang Muhammad M Referring Provider Dr. Breonna Jimenez Attending Provider IRVIN Connelly Attending Provider Dr. Charlee Serna Attending Provider Dr. Charlee Serna Referring Provider Dr. Charlee Serna Other Provider ZHANG MUHAMMAD Primary Care Unavailable DAVID SAMAYOA JR Referring Unavailable ALMA ROSA RIVERA Attending Unavailable ZHANG MUHAMMAD Primary Care Unavailable DAVID SAMAYOA JR Referring Unavailable ALMA ROSA RIVERA Attending Unavailable ZABRINA ROJAS Attending Unavailable ZHANG MUHAMMAD Primary Care Unavailable Edel Nickerson MD Primary Care Provider Edel Nickerson MD Referring Provider David GAMING, Dr. Malagon Attending Provider Roof MASK LAYOUT DESIGNER-C, Sascha John Attending Provider Roof MASK LAYOUT DESIGNER-C, Sascha John Referring Provider [facility] MASK LAYOUT DESIGNER-CPiotr Attending Provider [facility] MASK LAYOUT DESIGNER-CPiotr Referring Provider Zhang Muhammad DO Referring Provider Dr. Rand Melgar MD Attending Provider Dr. Rand Melgar MD Referring Provider Edel Nickerson MD Attending Provider Edel Nickerson MD Primary Care Provider Edel Nickerson MD Referring Provider Haroldo Liu Consulting Unavailable Haroldo Liu Attending Unavailable Krishan, Chalon Primary Care Unavailable de Haroldo Hancock Admitting Unavailable Hernananthony, Rand Attending Unavailable Krishan, Chalon Primary Care Unavailable Krishan, Chalon Referring Unavailable Krishan, Chalon Referring Unavailable Krishan, Chalon Primary Care Unavailable Krishan, Chalon Attending Unavailable Krishan, Chalon Primary Care Unavailable David, Vesna Attending Unavailable Krishan, Chalon Referring Unavailable Krishan, Chalon Referring Unavailable Krishan, Chalon Primary Care Unavailable David, Vesna Attending Unavailable Marcanthony, Rand Attending Unavailable Zhang Muhammad Referring Unavailable Krishan, Chalon Primary Care Unavailable AlonsoTyler Attending Unavailable Krishan, Chalon Primary Care Unavailable Krishan, Chalon Primary Care Unavailable Krishan, Chalon Attending Unavailable Krishan, Chalon Referring Unavailable Krishan, Chalon Primary Care Unavailable Krishan, Chalon Attending Unavailable Krishan, Chalon Primary Care Unavailable Roof MASK LAYOUT DESIGNER, Sascha John Attending Unavailable Roof MASK LAYOUT DESIGNER, Sascha John Referring Unavailable Danni So Attending Unavailable Haroldo Liu Consulting Unavailable Krishan, Chalon Primary Care Unavailable de SantiHaroldo bond Admitting Unavailable McMorrow MASK LAYOUT DESIGNER, Piotr Referring Unavailable McMorrow MASK LAYOUT DESIGNER, Piotr Attending Unavailable Krishan, Chalon Primary Care Unavailable Marcanthony, Rand Attending Unavailable Marcanthony, Rand Referring Unavailable Krishan, Chalon Primary Care Unavailable Krishan, Chalon Primary Care Unavailable David, Vesna Attending Unavailable David, Vesna Referring Unavailable Marcanthony, Rand Attending Unavailable Marcanthony, Rand Referring Unavailable Krishan, Chalon Primary Care Unavailable Krishan, Chalon Referring Unavailable Krishan, Chalon Attending Unavailable Krishan, Chalon Primary Care Unavailable Marcanthony, Rand Referring Unavailable Marcanthony, Rand Attending Unavailable Krishan, Chalon Primary Care Unavailable Danni So Attending Unavailable Danni So Consulting Unavailable Allergies Allergy Classification Reported Allergen(s) Allergy Type Date of Onset Reaction(s) Facility (3 sources) penicillin v drug allergy 7 [facility] (20 sources) Penicillins; Translations: [PENICILLINS] Allergy to substance 6 Anaphylaxis [facility] (1 source) Penicillin; Translations: [penicillin] Drug Allergy Anaphylactoid reaction (disorder) [facility] (1 source) Lisinopril Drug Allergy 5 [facility] Repository Medications Current Medications Medication Drug Class(es) Dates Sig (Normalized) Sig (Original) apixaban 5 mg oral tablet (2 sources) Factor Xa Inhibitor Start: 4 take 1 tablet by mouth once Apixaban (Eliquis Dvt-Pe Treat 30d Start) 5 mg (74 tabs) tablets,dose pack Active 0 PO .COMPLEX 74 May 30, 2024 12:00am orally per package directions doxycycline hyclate 100 mg oral tablet (1 source) Tetracycline- class Drug Start: 3 take 1 tablet by mouth twice daily doxycycline hyclate 100 mg oral tablet TAKE 1 TABLET BY MOUTH TWICE A DAY FOR 7 DAYS Start Date: 08/29/22 Status: Ordered escitalopram 10 mg oral tablet (18 sources) Serotonin Reuptake Inhibitor Start: 0 take 1 tablet by mouth once daily Escitalopram Oxalate (Lexapro) 10 mg tablet Active 10 mg PO DAILY July 20, 2020 1:00am Comment on above: Take 10 mg by mouth once daily. hydroCHLOROthiazide 25 mg oral tablet (3 sources) Thiazide Diuretic Start: 5 take 1 tablet by mouth once daily Hydrochlorothiazide 25 mg tablet Active 25 mg PO daily October 28, 2024 12:00am Start: 07-07-2024 End: 10-22-2024 take 1 tablet by mouth once daily Hydrochlorothiazide 25 mg tablet Discontinued 25 mg PO daily July 07, 2024 1:00am October 22, 2024 11:48am levothyroxine sodium 0.075 mg oral tablet (20 sources) l-Thyroxine Start: 08-29-2022 levothyroxine 75 mcg (0.075 mg) oral tablet Dose : 75 mcg = 1 tab(s), Oral, qDayAC, 0 Refill(s) Start Date: 08/29/22 Status: Ordered Start: 07-20-2020 Levothyroxine (Synthroid) 112 mcg tablet Active 0 PO DAILY July 20, 2020 11:08am 75 mcg PO daily; Start: 04-01-2018 End: 03-24-2019 take 1 capsule by mouth once daily Levothyroxine 112 mcg capsule Discontinued 112 ug PO DAILY March 21, 2019 2:34pm March 24, 2019 10:55am Start: 03-29-2017 take 1 tablet by james th once daily SYNTHROID 112 MCG TABS One tablet by mouth daily LEVOTHYROXINE SODIUM [id number] Rand Melgar MD Start: 03-29-2017 SYNTHROID 112 MCG TABS LEVOTHYROXINE SODIUM [id number] Maddie Neil Start: 03-12-2017 End: 07-20-2020 take 1 tablet by mouth once daily Levothyroxine (Synthroid) 112 mcg tablet Discontinued 112 ug PO DAILY March 25, 2019 8:49am January 20, 2020 11:08am Start: 03-12-2017 take 1 tablet by james th once daily SYNTHROID 112 MCG TABS One tablet by mouth daily LEVOTHYROXINE SODIUM [id number] Zeinab Haddad NP Comment on above: Take 1 tablet by james th once daily. TAKE 1 TABLET BY JAMES TH EVERY DAY lisinopril 10 mg oral tablet (9 sources) Angiotensin Converting Enzyme Inhibitor Start: End: take 1 tablet by mouth twice daily Lisinopril 10 mg tablet Discontinued 10 mg PO TWICE A DAY July 11, 2024 10:39am July 11, 2024 10:43am Start: 07-07-2024 End: 10-28-2024 take 1 tablet by mouth once daily Lisinopril 10 mg tablet Active 10 mg PO daily October 28, 2024 1:32pm Start: 06-27-2024 End: 07-07-2024 take 1 tablet by mouth once daily Lisinopril 5 mg tablet Discontinued 5 mg PO daily June 27, 2024 1:00am July 07, 2024 1:50pm Multivitamin preparation (5 sources) Start: 04-10-2023 take 1 tablet by mouth once daily Multivitamin Active 1 TABLET PO DAILY April 09, 2023 11:00pm Start: 04-10-2023 take 1 tablet by james th once daily Multivitamin Active 1 TABLET PO DAILY April 10, 2023 12:00am Start: 08-29-2022 take 1 tablet by james th once daily Multivitamin Dose = 1 tab(s), Oral, Daily, 0 Refill(s) Start Date: 08/29/22 Status: Ordered Multivitamin tablet (2 sources) Start: 04-10-2023 Multivitamin t ablet Active 1 {tbl} PO DAILY April 10, 2023 12:00am Completed/Discontinued Medications Medication Drug Class(es) Dates Sig (Normalized) Sig (Original) acetaminophen 325 mg / HYDROcodone bitartrate 5 mg oral tablet (9 sources) Opioid Agonist Start: 08-27-2022 End: 04-10-2023 Hydrocodone-Acetami nophen 5-325 mg tablet Discontinued 1 {tbl} PO EVERY 6 HOURS as needed for pain 12 August 27, 2022 April 10, 2023 2:36pm Start: 08-27-2022 End: 04-10-2023 take 1 tablet by mouth every six hours Hydrocodone-Acetaminophen Discontinued 1 TABLET PO EVERY 6 HOURS 12 August 27, 2022 April 10, 2023 1:36pm acetaminophen 325 mg / oxyCODONE hydrochloride 5 mg oral tablet (5 sources) Opioid Agonist Start: 12-11-2014 take 1-2 tablets by mouth every four hours as needed oxyCODONE-acetaminophen (PERCOCET) 5-325 mg tablet Take 1-2 [...] Comment on above: Take two pills on first day then one pill x 4 days Calcium Carbonate / vitamin D3 (5 sources) CALCIUM CARBONAT E/VITAMIN D3 (VITAMIN D-3 ORAL) Take by mouth. 0 Active Comment on above: Take by mouth. diphenhydrAMINE citrate 38 mg / ibuprofen 200 mg oral tablet (5 sources) Histamine-1 Receptor Antagonist, Nonsteroidal Anti-inflammatory Drug Ibuprofen-diphenhydr AMINE 200-38 mg tab Indications: Routine gynecological examination , Screening for diabetes mellitus Take by mouth as needed. 0 Active Comment on above: Take by mouth as nee ded. ECHINACEA HERB ORAL (5 sources) ECHINACEA HERB O RAL Take by mouth. 0 Active Comment on above: Take by mouth. LORazepam 0.5 mg oral tablet (20 sources) Benzodiazepine Start: 01-09-2017 End: 01-20-2020 take 1 tablet by mouth at bedtime Lorazepam (Ativan) 0.5 mg tablet Discontinued 0.5 mg PO AT BEDTIME January 01, 2018 3:56pm January 20, 2020 11:07am Comment on above: Take 1 tablet by james th three times daily as needed. Magnesium (5 sources) MAGNESIUM ORAL T josé miguel by mouth. 0 Active Comment on above: Take by mouth. Multivitamin capsule (1 source) take 1 capsule by mouth once daily Multivitamin capsule Take 1 capsule by mouth once daily. 0 Active Comment on above: Take 1 capsule by mo [facility] once daily. Drug Treatment Unknown - unknown (1 source) No information a vailable. omeprazole 20 mg delayed release oral capsule (13 sources) Proton Pump Inhibitor Start: 05-18-2021 End: 03-21-2022 take 1 capsule by mouth once daily as needed Omeprazole 20 mg capsule,delayed release(DR/EC) Discontinued 20 mg PO DAILY as needed May 18, 2021 12:00am March 21, 2022 1:04pm pantoprazole 40 mg delayed release oral tablet (20 sources) Proton Pump Inhibitor Start: 07-28-2020 End: 05-18-2021 take 1 tablet by mouth once daily in the morning Pantoprazole 40 mg tablet,delayed release (DR/EC) Discontinued 40 mg PO DAILY December 14, 2020 7:33am May 18, 2021 1:06pm take at night if you take thyroid meds in AM rifAXIMin 550 mg oral tablet (20 sources) Rifamycin Antibacterial Start: 11-08-2020 End: 11-24-2020 take 1 tablet by mouth three times daily Rifaximin (Xifaxan) 550 mg tablet Discontinued 550 mg PO THREE TIMES A DAY 42 November 10, 2020 1:35pm November 23, 2020 12:00am November 24, 2020 12:02am sulfamethoxazole 800 mg / trimethoprim 160 mg oral tablet (5 sources) Dihydrofolate Reductase Inhibitor Antibacterial, Sulfonamide Antimicrobial Start: 05-05-2023 End: 05-10-2023 Sulfamethoxazole-Trimethop rim 800-160 mg tablet Discontinued 1 {tbl} PO TWICE A DAY 10 May 05, 2023 12:00am May 09, 2023 12:00am May 10, 2023 12:04am Start: 05-05-2023 End: 05-10-2023 take 1 tablet by mouth twice daily Sulfamethoxazole-Trimethoprim Discontinu ed 1 TABLET PO TWICE A DAY 10 May 04, 2023 11:00pm May 09, 2023 11:04pm VITAMIN B COMPLEX ORAL (5 sources) VITAMIN B COMPLE X ORAL Indications: Routine gynecological examination , Screening for diabetes mellitus Take by mouth. 0 Active Comment on above: Take by mouth. zolpidem tartrate 5 mg oral tablet (20 sources) gamma-Aminobutyri c Acid-ergic Agonist Start: 05-05-2022 End: 08-17-2023 take 1 tablet by mouth at bedtime as needed Zolpidem (Ambien) 5 mg tablet Discontinued 5 mg PO AT BEDTIME as needed for insomnia November 28, 2022 9:20am August 17, 2023 11:47am Start: 03-29-2017 ZOLPIDEM TARTR ATE 5 MG TABS nightly as needed ZOLPIDEM TARTRATE [id number] Rand Melgar MD Start: 10-12-2016 End: 03-21-2022 take 1 tablet by mouth at bedtime as needed Zolpidem (Ambien) 5 mg tablet Discontinued 5 mg PO AT BEDTIME as needed for insomnia October 18, 2021 11:36am March 21, 2022 1:04pm Comment on above: Take 1 tablet by james th at bedtime as needed. FOR INSOMNIA Problems Active Problems Problem Classification Problem Date Documented Da te Episodic/Chronic Abdominal pain (13 sources) Chronic pelvic pain of female; Translations: [Pelvic and perineal pain] 11-08-2020 Episodic Comment on above: nl pelvic US in [place] t his fall. gastritis on EGD, nl colonoscopy. ordered CEA CA 125, PFPT recommended. Aortic; peripheral; and visceral artery aneurysms (4 sources) Ectasia of thoracic aorta; Translations: [Thoracic aortic ectasia] Onset: 06-24-2024 Chronic E Codes: Fall (9 sources) Fall; Translations: [Unspecified fall, initial encounter] 07-11-2022 Episodic Esophageal disorders (13 sources) Gastroesophageal reflux disease; Translations: [Gastro-esophageal reflux disease without esophagitis] 05-18-2021 Chronic Essential hypertension (3 sources) Essential hypertension; Translations: [Essential (primary) hypertension] Onset: 5 08-08-2024 Chronic Comment on above: GRACIELA III in the past Fracture of upper limb (8 sources) Fracture of radial head; Translations: [Displaced fracture of head of unspecified radius, initial encounter for closed fracture] 08-27-2022 Episodic Genitourinary symptoms and ill-defined conditions (13 sources) Double incontinence; Translations: [Unspecified urinary incontinence] 11-08-2020 Chronic Comment on above: PFPT consult. RUQ us ordered to evaluate gall bladder function due to loose stool, urine culture and UA dip. Intracranial injury (6 sources) Traumatic brain injury; Translations: [Traumatic brain injury] 04-10-2023 Episodic Comment on above: Due to concussion Menopausal disorders (13 sources) Atrophic vaginitis; Translations: [Postmenopausal atrophic vaginitis] 01-20-2020 Chronic Nonmalignant breast conditions (4 sources) Breast lump; Translations: [Unspecified lump in the right breast, unspecified quadrant] 06-21-2023 Episodic Open wounds of head; neck; and trunk (9 sources) Laceration of forehead; Translations: [Laceration without foreign body of other part of head, initial encounter] 07-11-2022 Episodic Other circulatory disease (3 sources) Elevated blood-pressure reading without diagnosis of hypertension; Translations: [Elevated blood-pressure reading, without diagnosis of hypertension] 06-24-2024 Episodic Other connective tissue disease (5 sources) Weakness of face muscles; Translations: [Facial weakness] Onset: 3 Episodic Other female genital disorders (13 sources) History of dysplasia of cervix; Translations: [Personal history of cervical dysplasia] 01-20-2020 Episodic Other female genital disorders (4 sources) Cervical intraepithelial neoplasia grade 1; Translations: [Mild cervical dysplasia] 10-08-2024 Episodic Comment on above: biopsies done, if co nsistent repeat in 1 year. h/o GRACIELA 3 12 years ago Other gastrointestinal disorders (13 sources) Diarrhea; Translations: [Diarrhea, unspecified] 11-08-2020 Episodic Comment on above: us abdomen ordered Other gastrointestinal disorders (13 sources) Abdominal bloating; Translations: [Abdominal distension (gaseous)] 11-08-2020 Episodic Comment on above: suspect SBO or IBS, recommend Xifaxin and then functional medicine consult if persistent. 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] Episodic Other nervous system disorders (5 sources) Facial nerve sensory disorder; Translations: [Other disorders of facial nerve] Onset: 3 Episodic Other nervous system disorders (1 source) Impaired cognition; Translations: [Other symptoms and signs involving cognitive functions and awareness] Episodic Other nervous system disorders (1 source) Torres's palsy; 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] Onset: 3 Episodic Other nervous system disorders (1 source) Other symptoms and signs involving cognitive functions and awareness; Translations: [Cognitive impairment] Onset: 3 Episodic Other nutritional; endocrine; and metabolic disorders (2 sources) Body mass index 25-29 - overweight; Translations: [Overweight] 06-07-2024 Episodic Other skin disorders (13 sources) Mass of upper limb; Translations: [Localized swelling, mass and lump, left upper limb] 05-18-2021 Episodic Residual codes; unclassified (13 sources) Family history of cancer of colon; Translations: [Family history of malignant neoplasm of digestive organs] 01-20-2020 Episodic Comment on above: Screen Q5 year, due in 2019 Residual codes; unclassified (4 sources) Patient encounter status; Translations: [Other specified personal risk factors, not elsewhere classified] 08-08-2024 Episodic Superficial injury; contusion (9 sources) Contusion of knee; Translations: [Contusion of unspecified knee, initial encounter] 07-11-2022 Episodic Thyroid disorders (19 sources) Hypothyroidism; Translations: [Hypothyroidism, unspecified] Onset: 6 03-19-2019 Chronic Unclassified (3 sources) Gynecologic examination ; Translations: [Encounter for gynecological examination (general) (routine) without abnormal findings] Onset: 7 2017 Unclassified (3 sources) Screening mammography ; Translations: [Encounter for screening mammogram for malignant neoplasm of breast] Onset: 7 2017 Unclassified (4 sources) Thyroid disorder screening ; Translations: [Encounter for screening for other suspected endocrine disorder] Onset: 7 02-27-2017 Unclassified (4 sources) Procedure carried out on subject; Translations: [Encounter for screening for lipoid disorders] Onset: 7 02-27-2017 Unclassified (13 sources) No history of procedure; Translations: [No history of previous surgery] 05-18-2021 Unclassified (1 source) R06.09 - Other forms of dyspnea,R03.0 - Elevated blood-pressure reading, without diagnosis of hypertension,R79.89 - Other specified abnormal findings of blood chemistry,I26.94 - Multiple subsegmental thrombotic pulmonary emboli without acute cor pulmonale,I77.810 - Thoracic aortic ectasia Unclassified (2 sources) Multiple subsegmental pulmonary emboli without acute cor pulmonale; Translations: [Multiple subsegmental thrombotic pulmonary emboli without acute cor pulmonale] Onset: Urinary tract infections (8 sources) Urinary tract infectious disease; Translations: [Urinary tract infection, site not specified] 05-05-2023 Episodic Past or Other Problems Problem Classification Problem Date Documented Date Episodic/Chronic Cancer of cervix (5 sources) Cervical intraepithelial neoplasia grade III with severe dysplasia; Translations: [Carcinoma in situ of cervix, unspecified] Onset: 12-21-2014 12-21-2014 Episodic Chronic obstructive pulmonary disease and bronchiectasis (1 source) Bronchitis, not specified as acute or chronic; Translations: [Bronchitis, not specified as acute or chronic] Onset: 08-28-2024 Episodic Complications of surgical procedures or medical care (4 sources) Postoperative complication; Translations: [Unspecified complication of procedure, initial encounter] Onset: 05-30-2024 05-29-2024 Episodic Malaise and fatigue (12 sources) Fatigue; Translations: [Other fatigue] Onset: 06-24-2024 03-21-2022 Episodic Other circulatory disease (1 source) Elevated blood-pressure reading, without diagnosis of hypertension; Translations: [Elevated blood-pressure reading, without diagnosis of hypertension] Onset: 06-24-2024 Episodic Other connective tissue disease (1 source) Facial weakness; Translations: [Facial weakness] Onset: 12-12-2022 Episodic Other female genital disorders (1 source) Mild cervical dysplasia; Translations: [Mild cervical dysplasia] Onset: 10-22-2024 Episodic Other lower respiratory disease (1 source) Shortness of breath; Translations: [Shortness of breath] Onset: 06-19-2024 Episodic Other lower respiratory disease (1 source) Dyspnea, unspecified; Translations: [Dyspnea, unspecified] Onset: 06-19-2024 Episodic Other nervous system disorders (1 source) Other disorders of facial nerve; Translations: [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] Onset: 12-12-2022 Episodic Other non-traumatic joint disorders (1 source) Pain in right shoulder; Translations: [Pain in right shoulder] Onset: 05-19-2024 Episodic Other nutritional; endocrine; and metabolic disorders (1 source) Overweight; Translations: [Overweight] Onset: 05-30-2024 Episodic Pulmonary heart disease (5 sources) Pulmonary embolism; Translations: [Other pulmonary embolism without acute cor pulmonale] Onset: 05-30-2024 05-29-2024 Episodic Residual codes; unclassified (1 source) Asymptomatic menopausal state; Translations: [Asymptomatic menopausal state] Onset: 09-03-2024 Episodic Residual codes; unclassified (1 source) Other specified postprocedural states; Translations: [Other specified postprocedural states] Onset: 08-08-2024 Episodic Residual codes; unclassified (1 source) Other specified personal risk factors, not elsewhere classified; Translations: [Other specified personal risk factors, not elsewhere classified] Onset: 08-08-2024 Episodic Unclassified (17 sources) Encounter for screening for lipoid disorders; Translations: [Patient encounter status] Onset: 02-26-2017 02-27-2017 Episodic Results Test Name Value Interpretation Reference Range Facility Cardiology Visit Reporton Cardiology Visit Report [facility] [address] [place] [address] OFFICE VISIT Date of Service: 12/04/24 MR#: [id number] Acct: [id number] Name: JENNIFER ZULETA Rep #: [id number] : 1955 Provider: Dr. Vesna Hernandez MD Age/Sex: 69/F Location: [facility] [place] Status: Signed HPI HPI History of Present Illness Details: This lady is here for follow-up visit. Her apixaban that she was taking for postop DVT and PE has been discontinued recently. Denies any chest pains either at rest or with exertion. She has some shortness of breath with exertion. She recently came from a 2-week hiking trip to [facility]. No orthopnea. No PND. No ankle edema. Intake Vital Signs 10/08/24 15:16 12/04/24 08:16 Height 5 ft 3 in 5 ft 3 in Weight: 172 lb BMI 30.4 BP 117/79 Blood Pressure Location Lt brachial Position Sitting Respiration 18 Pulse 78 Pulse Source NIBP Intake Visit Reasons: 6 M FU Scale Mechanic Required: No Accompanied by: Self Is patient in pain?: No Allergies Penicillins (PCN) Allergy (Verified 12/04/24 13:41) Anaphylaxis Medications ???Medication ???Instructions ???Recorded ???Confirmed ???Type levothyroxine 112 mcg tablet See Rx Instructions PO DAILY 07/2012/04/24 History (Synthroid) multivitamin 1 tab PO DAILY 04/10/23 12/04/24 H istory zolpidem 5 mg tablet (Ambien) 5 mg PO QHS PRN insomnia #30 tabs 08/17/23 12/04/24 Rx hydrochlorothiazide 25 mg tablet 25 mg PO QDAY #90 tabs 10/28/24 Rx lisinopril 10 mg tablet 10 mg PO QDAY #90 tabs 10/28/24 Rx escitalopram oxalate 5 mg tablet 5 mg PO QDAY 12/04/24 12/04/24 His tory Ejection fraction %: 65 Have you fallen in the past year?: No PFSH Medical History Bunion Concussion Essential hypertension GERD (gastroesophageal reflux disease) Hypothyroidism Overweight (BMI 25.0-29.9) Right wrist fracture Urgency of urination Surgical History H/O wrist surgery History of bunionectomy History of cataract extraction History of colonoscopy ( 06/2020) History of esophagogastroduodenoscopy (EGD) ( 06/2020) History of surgery on arm S/P LEEP S/P shoulder surgery Family History Father Colon cancer, Onset Age: 80 Kidney disease Mother Hypertension Social History number of children: 2 current occupational status: employed current occupation: [employer]- sometimes Smoking Status: Never smoker alcohol intake: current alcohol intake frequency: 3 or more drinks per day substance use type: does not use diet: vegetarian seatbelt use: always do you feel safe at home: Yes ROS Const Const: Positive for fatigue; Negative for weakness, headache(s) or weight gain ENT ENT: Negative for headache(s), dizziness, Nosebleed/epistaxis or balance problems Cardio Chest Pain: No Palpitations: No Edema: None Muscle aches with walking: None Resp Respiratory: Positive for SOB with activity; Negative for SOB at rest or SOB orthopnea SOB lying down GI GI: Negative nausea, vomiting or heartburn Musc Musc: Negative for muscle aches/ myalgia, muscle weakness, joint pain or balance problems Neuro Neuro: Negative for dizziness, lightheadedness, near syncope, syncope, headache(s) or weakness Endo Endo: Positive for fatigue Cardiology Exam Const Appearance: comfortable and no acute distress Nutritional Appearance: well nourished Neck Neck: no JVD Carotids: Negative bruit Chest Auscultation: Bilateral: Clear to Auscultation Cardio Rate: regular rate Rhythm: regular rhythm Heart sounds: S1 normal and S2 normal 2/6 systolic murmur at base. Neuro General: patient alert, patient awake and patient oriented x3 Extremities Lower Extremity Edema: None: Bilateral Supplemental Info Supplemental Information Echo Complete w/Contrast 05/30/2024: Interpretation Summary The estimated ejection fraction is 65 %. Mild (1+) tricuspid valve insufficiency. No evidence for diastolic dysfunction. Normal LV size. The study was technically difficult. Contrast injection was performed. CTA Chest, Abd, Pelv w/wo Contrast 10/20/2024: IMPRESSION: Atherosclerotic calcification, without evidence of dissection, thrombosis or aneurysm. No acute findings in the chest, abdomen and pelvis otherwise. CTA Chest w/wo Contrast 05/29/2024: IMPRESSIONS: 1. There is filling defect/pulmonary embolism involving the distal RIGHT main pulmonary artery extending into the lobar pulmonary artery branches into the RIGHT upper lobe and RIGHT lower lobe I, additional intralobar branch of t (more content not included)... Normal [facility] CTA Chst, Abd, Pel W and/or WOon 10-20-2024 CTA Chst, Abd, Pel W and/or WO [facility] Imaging Services [address] [place] [address] CTA Chst, Abd, Pel W and/or WO MR#: [id number] Acct: [id number] Name: JENNIFER ZULETA Rep #: [id number] : 1955 F 69 From: Paul griffin MD PCP: Dr. Edel Nickerson MD Status: REG CLI Study: CTA Chst, Abd, Pel W and/or WO Date of Exam: 0 10/20/24 Exam# [id number] Ordering Dr: Edel Nickerson MD PROCEDURE: CTA CHST, ABD, PEL W AND/OR WO REASON FOR EXAM: POST OP SOB TECHNIQUE: CTA imaging of the chest with intravenous contrast and 3D reconstructions. CT imaging of the abdomen and pelvis using the same intravenous contrast dose. IV CONTRAST: 100 cc Omnipaque 350 was administered. COMPARISON: None. FINDINGS: CHEST CTA: Hardware: None. Lymph nodes: No mediastinal hilar or axillary lymphadenopathy. Heart: Normal heart size. No pericardial effusion. RV/LV Diameter Ratio: N/A Thoracic Aorta: No thoracic aortic aneurysm or dissection. Pulmonary Vessels: No evidence of acute pulmonary emboli through the major subsegmental branches. Most Proximal Level of Embolus (if embolus present): N/A Lungs and Airways: The lungs are normally expanded and clear. Pleura: No pleural effusion. No pneumothorax. Bones: Bone windows are unremarkable. ABDOMEN / PELVIS: Liver: Homogeneous attenuation. 9 mm posterior right hepatic low-attenuation lesions, likely simple cysts. Gallbladder: No ductal dilation. Common bile duct is within normal limits. Gallbladder is collapsed. Spleen: Unremarkable. Pancreas: Diffuse fatty atrophy. No ductal dilation or suspicious mass. Adrenals: Unremarkable. Kidneys: Normal renal sizes. No hydronephrosis. Bladder: Urinary bladder is unremarkable. Reproductive Organs: No pelvic mass. Bowel: Stomach is unremarkable. No bowel dilation or wall thickening. Moderate colonic stool. Appendix: Appendix is not visualized. Lymph nodes: No suspicious lymph node enlargement. Vasculature: Major vascular structures are unremarkable. Peritoneum / Retroperitoneum: No ascites. No free air. Bones: Degenerative changes of the spine. CT/CTA Chst, Abd, Pel W and/or WO IMPRESSION: Atherosclerotic calcification, without evidence of dissection, thrombosis or aneurysm. No acute findings in the chest, abdomen and pelvis otherwise. One or more dose reduction techniques were used (e.g., Automated exposure control, adjustment of the mA and/or kV according to patient size, use of iterative reconstruction technique). Reading [facility] CC: Dr. 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 Rand camarena MD Age/Sex: 69/F Location: [facility] [place] Status: Signed Intake Vital Signs 08/08/24 14:40 10/08/24 15:15 10/08/24 15:16 Height 5 ft 3 in 5 ft 3 in 5 ft 3 in Weight: 170 lb 173 lb 8 oz BMI 30.1 30.7 BP 136/84 H 116/79 Intake Visit Reasons: Colposcopy Chief Complaint: colposcopy Scale Mechanic Required: No Is patient in pain?: No Allergies Penicillins (PCN) Allergy (Verified 08/08/24 14:43) Anaphylaxis Medications ???Medication ???Instructions ???Recorded ???Confirmed ???Type escitalopram oxalate 10 mg tablet 10 mg PO DAILY 07/20/20 10/08/24 History (Lexapro) levothyroxine 112 mcg tablet See Rx Instructions PO DAILY 07/2010/08/24 History (Synthroid) multivitamin 1 tab PO DAILY 04/10/23 10/08/24 H istory zolpidem 5 mg tablet (Ambien) 5 mg PO QHS PRN insomnia #30 tabs 08/17/23 10/08/24 Rx apixaban 5 mg (74 tabs) tablets in See Rx Instructions PO .COMPLEX 05/30/24 10/08/24 Rx a dose pack (Eliquis DVT-PE Treat #74 tabs 30D Start) hydrochlorothiazide 25 mg tablet 25 mg PO QDAY #30 tabs 07/07/24 Rx lisinopril 10 mg tablet 10 mg PO .COMPLEX #90 tabs 4 10/08/24 Rx Is last menstrual period known: No Post menopausal: Yes Patient : No : No PFSH PFSH Medical History (Updated 10/08/24 @ 15:[address] Rand Melgar MD) Essential hypertension Overweight (BMI 25.0-29.9) Hypothyroidism Urgency of urination Right wrist fracture Concussion GERD (gastroesophageal reflux disease) Bunion Surgical History S/P shoulder surgery H/O wrist surgery S/P LEEP History of surgery on arm History of esophagogastroduodenoscopy (EGD) ( 06/2020) History of colonoscopy ( 06/2020) History of bunionectomy History of cataract extraction Family History Father Colon cancer, Onset Age: 80 Kidney disease Mother Hypertension Social History number of children: 2 current occupational status: employed current occupation: [employer]- sometimes Smoking Status: Never smoker alcohol intake: current alcohol intake frequency: 3 or more drinks per day substance use type: does not use diet: vegetarian seatbelt use: always do you feel safe at home: Yes History 2 Elective abortions Hx Para Spontaneous abortions Hx # Term Pregnancies 2 Ectopic pregnancies Hx # Pregnancies Multiple births # of living children 2 HPI Colposcopy Details: JENNIFER ZULETA is a 69 year old who presents for colposcopy. graciela I with history of GRACIELA III ROS Const Constitutional: Reports system reviewed and no additional complaints, except as documented; Denies chills, fever(s), weight gain or weight loss GI GI: Reports as per HPI; Denies abdominal pain, bloating, constipation, cramping, nausea or vomiting : Reports as per HPI; Denies urinary frequency, urinary incontinence, urinary urgency, vaginal discharge or vaginal dryness Exam Const General: cooperative, healthy appearing, comfortable and well developed Orientation: alert HENMT Head: normal to inspection Resp Effort Inspection: normal respiratory effort GI Inspection: normal to inspection and non-distended Palpation: soft, no hepatosplenomegaly and no guarding External Female Exam: normal external appearance and normal appearance of the urethra Urethra: normal appearance of the urethra Speculum Exam - Vagina: normal appearance of the vagina, normal vaginal discharge and no lesions Office Procedures Colposcopy Colposcopy Reason for colposcopy: LSIL Pap/GRACIELA history: previous HSIL Consent Signed: Yes Time out performed: Yes Time: 15:55 Acetowhite epithelium (cervix): 2 o'clock Punctation (cervix): none Mosaicism (cervix): none Abnormal vessels (cervix): none Biopsies (cervix): 2 o'clock Acetowhite epithelium (vagina): none Punctation (vagina): none Mosaicism (vagina): none Biopsies (vagina): none Cervix+upper/adj vag+bx cervix+ECC: Yes biopsy Details: adequate colposcopy dilute acetic acid applied and entire SCJ visualized with above noted findings seen. patient tolerated procedure well without complications. 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 Normal [facility] Surgery Specimen Level Janie 10-08-2024 Surgery Specimen Level IV -------- Patient Age/Sex Location Account Attending Physician -------- JENNIFER ZULETA 69/F [facility] [id number] Dr. Rand Melgar MD -------- Specimen: [id number] Received: 10/09/24 Status: MONICA Gio Num: [id number] Spec Type: EGD BIOPSY Subm Dr: Dr. Rand Melgar MD HEADER OPERATION: Colposcopy PRE-OP DIAGNOSIS: GRACIELA I TISSUE SUBMITTED: A- 2o'clock, B- ECC -------- MICROSCOPIC DIAGNOSIS a. Cervix, 2 o'clock, biopsy: * Low grade OLGA (GRACIELA 1). * IHC for p16 is negative for block positivity. b. Endocervix, curettage: * Squamous atrophy with atypia, cannot rule out low grade OLGA (GRACIELA 1). * Negative for high grade dysplasia. * IHC for p16 is negative for block positivity. MICROSCOPIC DESCRIPTION Slides are reviewed. All matched controls reacted appropriately. GROSS DESCRIPTION Specimen A-received in formalin labeled, Jennifer Zuleta, and designated 2:00, is a becerra, smooth, irregular shaped, soft, tissue fragment with scant material that aggregates to 0.4 x 0.4 and 0.2 cm. Totally submitted in one cassette.Specimen B-received in formalin labeled, Jennifer Zuleta, and designated ECC, is a scant amount red-brown, hemorrhagic, soft tissue fragments and mucus that aggregate to 0.3 x 0.2 x 0.2 cm. Totally submitted in one cassette.JK. 10/09/2024 CPT:31458l1, 76781, 79807 -------- Patient Age/Sex Location Account Attending Physician -------- JENNIFER ZULETA 69/F [facility] [id number] Dr. Rand Melgar MD -------- Signed (signature on file) Dr. Radha Lomas MD 10/17/24 1713 -------- Normal [facility] Comment on above: Performed By: #### L 400.0001 #### [facility] [address] [place], [place], [id number] SCRN MAMM (CAD)W/KENRICK BILATo n 09-24-2024 SCRN MAMM (CAD)W/KENRICK BILAT [facility] Imaging Services [address] [place], [place] [address] SCRN MAMM (CAD)W/KENRICK BILAT MR#: [id number] Acct: [id number] Name: JENNIFER ZULETA Rep #: [id number] : 1955 F 69 From: Anuja Bond PCP: Dr. Edel Nickerson MD Status: [facility] Study: SCRN MAMM (CAD)W/KENRICK BILAT Date of Exam: 09/06 04/30 Exam# [id number] Ordering Dr: Rand Melgar PROCEDURE: SCRN MAMM (CAD)W/KENRICK BILAT REASON FOR EXAM: Routine yearly screening mammography. TECHNIQUE: Bilateral diagnostic digital breast tomosynthesis with 2D and 3D images. Computer aided detection. COMPARISON: Prior exam(s) 06/26/2023 FINDINGS: The breasts are almost entirely fatty. No suspicious masses, suspicious cluster of calcifications, architectural distortion or secondary sign of malignancy is identified in either breast. Benign round calcifications are seen in both breasts. Radiopaque clips are seen in the right breast. The biopsies were benign. Post biopsy sites are stable. A stable 2 mm well-circumscribed isodense mass in the superior outer aspect of the right breast is noted. BI/SCRN MAMM (CAD)W/KENRICK BILAT IMPRESSION: BI-RADS 2: BENIGN. RECOMMEND ANNUAL MAMMOGRAPHIC SCREENING. Follow-up code: Routine Follow-up Reading Location: [id number] CC: Dr. Edel Nickerson MD; Dr. Rand Melgar MD Hand Umbrella Tipper: Signed Normal [facility] PAP IG HPV APTIMA 16/18,45on 08-18-2024 ADEQ Comment Normal . [facility] Comment on above: Order Comment: Speci men Comment: [id number] Specimen Comment: Source.............Cervix;Endocervix Specimen Comment: Other..............Post Menopausal Specimen Comment: No. of containers..01 ThinPrep Vial Result Comment: Sati sfactory for evaluation. Endocervical and/or squamous metaplastic cells (endocervical component) are present. Performed By: #### L 7400.0280 #### [facility] [address] [place], [place], [id number] COMM . Normal . [facility] Comment on above: Order Comment: Speci men Comment: [id number] Specimen Comment: Source.............Cervix;Endocervix Specimen Comment: Other..............Post Menopausal Specimen Comment: No. of containers..01 ThinPrep Vial Performed By: #### L 7400.0280 #### [facility] [address] [place], [place], [id number] COMMENT Comment Normal . [facility] Comment on above: Order Comment: Speci men Comment: [id number] Specimen Comment: Source.............Cervix;Endocervix Specimen Comment: Other..............Post Menopausal Specimen Comment: No. of containers..01 ThinPrep Vial Result Comment: This liquid based ThinPrep(R) pap test was screened with the use of an image guided system. Performed By: #### L 7400.0280 #### [facility] [address] [facility] [place], [place], [address] DIAG Comment Abnormal . [facility] Comment on above: Order Comment: Speci men Comment: [id number] Specimen Comment: Source.............Cervix;Endocervix Specimen Comment: Other..............Post Menopausal Specimen Comment: No. of containers..01 ThinPrep Vial Result Comment: EPIT HELIAL CELL ABNORMALITY. LOW GRADE SQUAMOUS INTRAEPITHELIAL LESION (LSIL). Performed By: #### L 7400.0280 #### [facility] [address] [facility] [place], [place], [id number] HPV APTIMA, HR Positive Abnormal Negative [facility] Comment on above: Order Comment: Speci men Comment: [id number] Specimen Comment: Source.............Cervix;Endocervix Specimen Comment: Other..............Post Menopausal Specimen Comment: No. of containers..01 ThinPrep Vial Result Comment: This nucleic acid amplification test detects fourteen high- risk HPV types (16,18,31,33,35,39,45,51,52,56,58,59,66,68) without differentiation. Performed By: #### L 7400.0280 #### [facility] [address] [place], [address] HPV Patty Rfx Comment Normal . [facility] Comment on above: Order Comment: Speci men Comment: [id number] Specimen Comment: Source.............Cervix;Endocervix Specimen Comment: Other..............Post Menopausal Specimen Comment: No. of containers..01 ThinPrep Vial Result Comment: Crit eria not met, HPV Genotype not performed. Performed at: [facility], [place] [id number] Household Appliances Salesperson: Rosita Silva MD, Phone: [phone] Performed at: [facility] [address] [facility], [place] [id number] Household Appliances Salesperson: Megan Lind PhD, Phone: [phone] Performed at: - [facility], [place] [id number] Household Appliances Salesperson: Rosita Silva MD, Phone: [phone] Performed By: #### L 7400.0280 #### [facility] [address] [place], [place], [address] PAPSMR Comment Normal . [facility] Comment on above: Order Comment: Speci men Comment: [id number] Specimen Comment: Source.............Cervix;Endocervix Specimen Comment: Other..............Post Menopausal Specimen Comment: No. of containers..01 ThinPrep Vial Result Comment: The Pap smear is a screening test designed to aid in the detection of premalignant and malignant conditions of the uterine cervix. It is not a diagnostic procedure and should not be used as the sole means of detecting cervical cancer. Both false-positive and false-negative reports do occur. Performed By: #### L 7400.0280 #### [facility] [address] [place], [place], [id number] Path.prov.IDC-9 Comment Normal . [facility] Comment on above: Order Comment: Speci men Comment: [id number] Specimen Comment: Source.............Cervix;Endocervix Specimen Comment: Other..............Post Menopausal Specimen Comment: No. of containers..01 ThinPrep Vial Result Comment: [id number] Performed By: #### L 7400.0280 #### [facility] [address] [place], [place], [address] PERFORM Comment Normal . [facility] Comment on above: Order Comment: Speci men Comment: [id number] Specimen Comment: Source.............Cervix;Endocervix Specimen Comment: Other..............Post Menopausal Specimen Comment: No. of containers..01 ThinPrep Vial Result Comment: Cherelle Moncada, It Portfolio Manager (ASCP) Performed By: #### L 7400.0280 #### [facility] [address] [place], [place], [address] RECOMM Comment Abnormal . [facility] Comment on above: Order Comment: Speci men Comment: [id number] Specimen Comment: Source.............Cervix;Endocervix Specimen Comment: Other..............Post Menopausal Specimen Comment: No. of containers..01 ThinPrep Vial Result Comment: Sugg est follow up as clinically appropriate. Performed By: #### L 7400.0280 #### [facility] [address] [place], [place], [address] SIGN Comment Normal . [facility] Comment on above: Order Comment: Speci men Comment: [id number] Specimen Comment: Source.............Cervix;Endocervix Specimen Comment: Other..............Post Menopausal Specimen Comment: No. of containers..01 ThinPrep Vial Result Comment: Hanna Newton MD, Pathologist Performed By: #### L 7400.0280 #### [facility] [address] [place], [place], [id number] Slot Supervisor Cyto stain Nom (C vx/Vag) [ID]Ordered By: Rand Melgar on 08-08-2024 Pap Smear Performed By Comment . [facility] Comment on above: Callie Moncada, It Portfolio Manager (ASCP) Cytology report Cyto stain D oc (Cvx/Vag)Ordered By: Rand Melgar on 08-08-2024 Thin Prep Pap Smear Comment . [facility] Comment on above: The Pap smear is a s creening test designed to aid in thedetection of premalignant and malignant conditions of theuterine cervix. It is not a diagnostic procedure andshould not be used as the sole means of detecting cervicalcancer. Both false-positive and false-negative reports dooccur. Cytology report Cyto stain.t hin prep Doc (Cvx/Vag)Ordered By: Rand Melgar on 08-08-2024 HPV Genotype Special Info Comment . [facility] Comment on above: Criteria not met, HP V Genotype not performed.Performed at: [facility] [id number] Director: Rosita Silva MD, Phone: [phone] at: [address] [id number] Director: Megan Lind PhD, Phone: [phone] at: [facility] [id number] Director: Rosita Silva MD, Phone: [phone] HPV 16+18+31+33+35+39+45+51+ 52+56+58+59+66+68 DNA Probe+sig amp Ql (Cvx)Ordered By: Rand Melgar on 08-08-2024 Human Papillomavirus High Risk Positive High Negative [facility] Comment on above: This nucleic acid am plification test detects fourteen high- risk HPV types (16,18,31,33,35,39,45,51,52,56,58,59,66,68)without differentiation. Image-guided ThinPrep PapOrd ered By: Rand Melgar on 08-08-2024 Pap Smear Note Comment . [facility] Comment on above: This liquid based Th inPrep(R) pap test was screened withthe use of an image guided system. Image-guided liquid-based Pa pOrdered By: Rand Melgar on 08-08-2024 Pap Smear Diagnosis Comment High . [facility] Comment on above: EPITHELIAL CELL ABNO RMALITY.LOW GRADE SQUAMOUS INTRAEPITHELIAL LESION (LSIL). 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 Rand camarena MD Age/Sex: 69/F Location: [facility] [place] Status: Signed Intake Vital Signs 04/10/23 14:35 05/05/23 08:35 06/24/24 08:28 08/08/24 14:40 Height 5 ft 3 in 5 ft 3 in 5 ft 3 in 5 ft 3 in Weight: 170 lb BMI 30.1 BP 136/84 H Intake Visit Reasons: Annual ([employer]) Scale Mechanic Required: No Is patient in pain?: Yes (right shoulder from recent joint replacement ) Feel stressed/tense/nervous/anxio us/difficulty sleeping: to some extent Allergies Penicillins (PCN) Allergy (Verified 08/08/24 14:43) Anaphylaxis Medications ???Medication ???Instructions ???Recorded ???Confirmed ???Type escitalopram oxalate 10 mg tablet 10 mg PO DAILY 07/20/20 08/08/24 History (Lexapro) levothyroxine 112 mcg tablet See Rx Instructions PO DAILY 07/20/20 08/08/24 History (Synthroid) multivitamin 1 tab PO DAILY 04/10/23 08/08/24 History zolpidem 5 mg tablet (Ambien) 5 mg PO QHS PRN insomnia #30 tabs 08/17/23 08/08/24 Rx apixaban 5 mg (74 tabs) tablets in See Rx Instructions PO .COMPLEX 05/30/24 08/08/24 Rx a dose pack (Eliquis DVT-PE Treat #74 tabs 30D Start) hydrochlorothiazide 25 mg tablet 25 mg PO QDAY #30 tabs 07/07/24 08/08/24 Rx lisinopril 10 mg tablet 10 mg PO .COMPLEX #90 tabs 07/11/24 08/08/24 Rx Is last menstrual period known: No Post menopausal: Yes Patient : No : No PFSH Medical History (Updated 08/08/24 @ 15:[address] Rand Melgar MD) Essential hypertension Overweight (BMI 25.0-29.9) Hypothyroidism Urgency of urination Right wrist fracture Concussion GERD (gastroesophageal reflux disease) Bunion Surgical History S/P shoulder surgery H/O wrist surgery S/P LEEP History of surgery on arm History of esophagogastroduodenoscopy (EGD) ( 06/2020) History of colonoscopy ( 06/2020) History of bunionectomy History of cataract extraction Family History Father Colon cancer, Onset Age: 80 Kidney disease Mother Hypertension Social History (Updated 08/08/24 @ 14:45 by Zeinab Matias) number of children: 2 current occupational status: employed current occupation: [employer]- sometimes Smoking Status: Never smoker alcohol intake: current alcohol intake frequency: 3 or more drinks per day substance use type: does not use diet: vegetarian seatbelt use: always do you feel safe at home: Yes History 2 Elective abortions Hx Para Spontaneous abortions Hx # Term Pregnancies 2 Ectopic pregnancies Hx # Pregnancies Multiple births # of living children 2 HPI Encounter for routine gynecological examination Details: JENNIFER ZULETA is a 69 year old who presents for annual exam. Last PAP: 01/20/2020 - normal History of abnormal PAP: Last mammogram: 06/11/2023 - normal History of abnormal mammogram: 2022 - breast biopsy, fibroadenoma Colon cancer screening: Other preventative health care screenings: PCP is Dr. Nickerson - PCP orders routine labs Female Reproductive History Questions: metorrhagia: No, sexually active: Yes, dyspareunia: No and PCB: No Menopausal Symptoms: No hot flashes, No night sweats, No weight change, No mood changes, No difficulty concentrating, No sleep problems and No change in libido ROS Const Constitutional: Reports as per HPI; Denies fatigue, increased appetite, poor appetite, night sweats, weight gain or weight loss Cardio Card: Denies chest pain Resp Resp: Denies cough or dyspnea GI GI: Reports as per HPI; Denies abdominal pain, bloating, constipation, nausea or vomiting : Reports as per HPI and other; Denies difficulty voiding, dysuria, hematuria, hot flashes, nipple discharge, pelvic pain, prolapse symptoms, urinary frequency, urinary incontinence, urinary urgency, vaginal discharge, vaginal dryness, vaginal odor or vaginal pruritus Skin Skin/Breast: Denies changing lesions, breast mass, breast pain, breast skin changes or nipple discharge Psych Psych: Denies anxiety, change in libido, depression or difficulty concentrating Exam Const General: cooperative, healthy appearing, comfortable, no acute distress, well developed and well groomed [facility] Head: normal to inspection and normocephalic Ears: hearing grossly normal bilaterally and external ears normal Nose: external nose normal Face and sinus: normal facial exam Neck Neck: normal visual inspection, full ROM and no lymphadenopathy Thyroid: thyroid normal Chest Chest palpation inspection (more content not included)... Normal [facility] Pathologist Cyto stain Nom ( Cvx/Vag) [ID]Ordered By: Rand Melgar on 08-08-2024 Pap Smear Signed Out By Comment . [facility] Comment on above: Franco Newton MD, Pa thologist Pathology report final diagn osis NarrativeOrdered By: Rand Melgar on 08-08-2024 Pap Smear Comment (2) Comment . [facility] Comment on above: R87.612 Recommended follow-up Cyto s tain Nom (Cvx/Vag)Ordered By: Rand Melgar on 08-08-2024 Pap Smear Recommendation Comment High . [facility] Comment on above: Suggest follow up as clinically appropriate. Service comment (Unsp spec) [Interp]Ordered By: Rand Melgar on 08-08-2024 Pap Smear Comment (3) . . [facility] Chest PA and Lateralon 08-05 Chest PA and Lateral [facility] [address] [place] [address] Chest PA and Lateral MR#: [id number] Acct: [id number] Name: JENNIFER ZULETA Rep #: [id number] : 1955 F 69 From: Carlos Macias MD PCP: Dr. Edel Nickerson MD Status: REG CLI Study: Chest PA and Lateral Date of Exam: 08/05/24 Exam# [id number] Ordering Dr: Piotr Bond NP, NP :[id number] STUDY: X-RAY CHEST REASON FOR EXAM: Female, 69 years old. bronchitis TECHNIQUE: PA and lateral views of the chest. COMPARISON: None. FINDINGS: The lungs are clear and expanded. There is no demonstrated pleural abnormality. Normal size heart. Normal mediastinum and neel. Normal visualized pulmonary arteries. Normal visualized aortic arch and descending thoracic aorta. Normal visualized thoracic spine. Status post right shoulder reverse arthroplasty. There is no demonstrated abnormality of the visualized soft tissue structures of the upper abdomen. RAD/Chest PA and Lateral IMPRESSION: No active disease. Electronically Signed: Carlos Macias MD at 22:01 EST , CC: Piotr Bond; Dr. Edel Nickerson MD Hand Umbrella Tipper: Signed Normal [facility] Basic Metabolic Profile (BMP )on 07-23-2024 BUN/CRE 29.0 RATIO High 10-20 [facility] Comment on above: Order Comment: 'TROP ' Serial specimen #1, #2 or #3: 2 Performed By: #### L [id number] #### [facility] [address] [place], [place], [id number] CA,Total 9.2 mg/dL Normal 8.5-10.1 [facility] Comment on above: Order Comment: 'TROP ' Serial specimen #1, #2 or #3: 2 Performed By: #### L [id number] #### [facility] [address] [place], [address] Chloride [Moles/Vol] 101 mmol/L Normal 98-107 [facility] Comment on above: Order Comment: 'TROP ' Serial specimen #1, #2 or #3: 2 Performed By: #### L [id number] #### [facility] [address] [place], [address] CO2 [Moles/Vol] 28.0 mmol/L Normal 21.0-32.0 [facility] Comment on above: Order Comment: 'TROP ' Serial specimen #1, #2 or #3: 2 Performed By: #### L [id number] #### [facility] [address] [place], [address] Creatinine [Mass/Vol] 0.86 mg/dL Normal 0.55-1.02 [facility] Comment on above: Order Comment: 'TROP ' Serial specimen #1, #2 or #3: 2 Result Comment: The validity of the calculated GFR GFRAA in patients over 70 years has not been determined. Clinical correlation is essential. Performed By: #### L 501.4020 #### [facility] [address] [place], [address] EST GFR - AA 84 mL/min Normal >60 [facility] Comment on above: Order Comment: 'TROP ' Serial specimen #1, #2 or #3: 2 Result Comment: Afri can Finnish GFR Calc Performed By: #### L [id number] #### [facility] [address] [place], [address] GAP 7 Normal 5-15 [facility] Comment on above: Order Comment: 'TROP ' Serial specimen #1, #2 or #3: 2 Performed By: #### L [id number] #### [facility] [address] [place], [address] GFR/1.73 sq M.predicted among non-blacks MDRD (S/P/Bld) [Vol rate/Area] 69 mL/min/{1.73_m2} Normal >60 [facility] Comment on above: Order Comment: 'TROP ' Serial specimen #1, #2 or #3: 2 Result Comment: Non- GFR Calc Performed By: #### L [id number] #### [facility] [address] [place], [address] Glucose [Mass/Vol] 92 mg/dL Normal 74-106 [facility] Comment on above: Order Comment: 'TROP ' Serial specimen #1, #2 or #3: 2 Performed By: #### L [id number] #### [facility] [address] [place], [address] Potassium [Moles/Vol] 4.2 mmol/L Normal 3.5-5.1 [facility] Comment on above: Order Comment: 'TROP ' Serial specimen #1, #2 or #3: 2 Performed By: #### L [id number] #### [facility] [address] [place], [address] Sodium [Moles/Vol] 136 mmol/L Normal 136-145 [facility] Comment on above: Order Comment: 'TROP ' Serial specimen #1, #2 or #3: 2 Performed By: #### L [id number] #### [facility] [address] [place], [address] Urea nitrogen [Mass/Vol] 25 mg/dL High -18 [facility] Comment on above: Order Comment: 'TROP ' Serial specimen #1, #2 or #3: 2 Performed By: #### L [id number] #### [facility] [address] [place], [address] Blood urea nitrogen (BUN)/cr eatinine ratioOrdered By: Sascha Salazar on 07-23-2024 Urea nitrogen/Creatinine [Mass ratio] 29.0 mg/mg High 10-20 [facility] Carbon dioxide measurementOr dered By: Sascha Salazar on 07-23-2024 CO2 [Moles/Vol] 28.0 mmol/L 21.0-32.0 [facility] Chloride measurementOrdered By: Sascha Salazar on 07-23-2024 Chloride [Moles/Vol] 101 mmol/L 98-107 [facility] Estimated glomerular filtrat ion rate (GFR) AmericanOrdered By: Sascha Salazar on 07-23-2024 Estimated GFR (MDRD) Amer 84 mL/min >60 [facility] Comment on above: GFR Calc Glomerular filtration rate ( GFR) estimationOrdered By: Sascha Salazar on 07-23-2024 Estimated GFR (MDRD) Non-Af Amer 69 mL/min >60 [facility] Comment on above: Non- GFR Calc Glucose measurementOrdered B y: Sascha Salazar on 07-23-2024 Glucose [Mass/Vol] 92 mg/dL 74-106 [facility] Potassium measurementOrdered By: Sascha Salazar on 07-23-2024 Potassium [Moles/Vol] 4.2 mmol/L 3.5-5.1 [facility] Serum anion gap measurementO rdered By: Sascha Salazar on 07-23-2024 Anion gap [Moles/Vol] 7 mmol/L 5-15 [facility] Serum or plasma calcium ash urement (mass/volume)Ordered By: Sascha Salazar on 07-23-2024 Calcium [Mass/Vol] 9.2 mg/dL 8.5-10.1 [facility] Serum or plasma creatinine m easurement (mass/volume)Ordered By: Sascha Salazar on 07-23-2024 Creatinine [Mass/Vol] 0.86 mg/dL 0.55-1.02 [facility] Comment on above: The validity of the calculated GFR & GFRAA in patients over 70 years has not been determined. Clinical correlation is essential. Serum or plasma urea nitroge n measurement (mass/volume)Ordered By: Sascha Salazar on 07-23-2024 Urea nitrogen [Mass/Vol] 25 mg/dL High -18 [facility] Sodium levelOrdered By: Sascha Salazar on 07-23-2024 Sodium [Moles/Vol] 136 mmol/L 136-145 [facility] 12 Lead EKG performed by [facility] on 06-24-2024 12 Lead EKG performed by [facility] [address] [place] [address] 12 Lead EKG performed by [facility] 06/24/24 1111 MR#: [id number] Acct: [id number] Name: JENNIFER ZULETA Rep #: [id number] : 1955 69 From: Vesna Hernandez MD Attending Dr: Dr. Vesna Hernandez MD Status: DEP AMB Ordering Dr: Vesna Hernandez MD Date: 06/24/24 [place] [facility] [place] F C Admitted: BMS/12 Lead EKG performed by [facility] ECG Report Interpretation Si nus Rhythm WITHIN NORMAL LIMITSElectronically signed on 09/01/2024 at 11:[address] Vesna Hernandez [employer] Software Version 8610 09/01/24 1120 Date Vesna Hernandez MD CC: Dr. Edel Nickerson MD Date Dictated: 06/24/24 1111 Date Transcribed: 06/24/241110 Hand Umbrella Tipper: MARY Signed Normal [facility] Cardiology Visit Reporton Cardiology Visit Report [facility] [address] [place] [address] OFFICE VISIT Date of Service: 06/24/24 MR#: [id number] Acct: [id number] Name: JENNIFER ZULETA Rep #: [id number] : 1955 Provider: Dr. Vesna Hernandez MD Age/Sex: 69/F [place] [facility] [place]: Signed HPI HPI History of Present Illness Details: This lady was recently diagnosed with bilateral PEs after her right shoulder surgery. Started on apixaban. During her presentation to the hospital for shortness of breath, she has had troponin checked. These were mildly elevated. Subsequently she has been referred to us for evaluation. Echocardiogram done during the index hospitalization showed normal left ventricular systolic function. No RV dysfunction was noted. Patient denies any history of heart disease. She denies any chest pains either at rest or with exertion. Since her pulmonary embolism, she has been feeling short of breath with exertion. According to her, this is slowly been improving. No orthopnea. No PND. No ankle edema. No palpitations. No lightheadedness or dizziness. No syncope or presyncope. Intake Vital Signs 05/29/24 23:44 06/24/24 08:28 Height 5 ft 3 in 5 ft 3 in Weight: 168 lb BMI 29.7 BP 129/88 H Blood Pressure Location Lt brachial Position Sitting Respiration 18 Pulse 79 Pulse Source NIBP Intake Visit Reasons: S/P [facility] 05/30 ([facility] ER) Scale Mechanic Required: No Accompanied by: Friend Is patient in pain?: Yes (s/p Right shoulder surgery) Allergies Penicillins (PCN) Allergy (Verified 06/24/24 11:02) Anaphylaxis Medications ???Medication ???Instructions ???Recorded ???Confirmed ???Type escitalopram oxalate 10 mg tablet 10 mg PO DAILY 07/20/20 06/24/24 History (Lexapro) levothyroxine 112 mcg tablet See Rx Instructions PO DAILY 07/20/20 06/24/24 History (Synthroid) multivitamin 1 tab PO DAILY 04/10/23 06/24/24 History zolpidem 5 mg tablet (Ambien) 5 mg PO QHS PRN insomnia #30 tabs 08/17/23 06/24/24 Rx apixaban 5 mg (74 tabs) tablets in See Rx Instructions PO .COMPLEX 05/30/24 06/24/24 Rx a dose pack (Eliquis DVT-PE Treat #74 tabs 30D Start) Ejection fraction %: 65 Have you fallen in the past year?: Yes (multiple falls; no major injuries) [facility] Medical History Bunion Concussion GERD (gastroesophageal reflux disease) Hypothyroidism Overweight (BMI 25.0-29.9) Right wrist fracture Urgency of urination Surgical History H/O wrist surgery History of bunionectomy History of cataract extraction History of colonoscopy ( 06/2020) History of esophagogastroduodenoscopy (EGD) ( 06/2020) History of surgery on arm S/P LEEP S/P shoulder surgery Family History Father Colon cancer, Onset Age: 80 Kidney disease Mother Hypertension Social History number of children: 2 current occupational status: employed current occupation: [email or web address] Smoking Status: Never smoker alcohol intake: current alcohol intake frequency: 3 or more drinks per day substance use type: does not use diet: vegetarian seatbelt use: always do you feel safe at home: Yes ROS Const Const: Positive for fatigue, headache(s) and frequent falls; Negative for weakness or weight gain ENT ENT: Positive for headache(s); Negative for dizziness, Nosebleed/epistaxis or balance problems Cardio Chest Pain: No Palpitations: Yes Edema: None Muscle aches with walking: None Resp Respiratory: Positive for SOB with activity and SOB at rest; Negative for SOB orthopnea SOB lying down GI GI: Negative nausea, vomiting or heartburn Musc Musc: Negative for muscle aches/ myalgia, muscle weakness, joint pain or balance problems Neuro Neuro: Positive for frequent falls and headache(s); Negative for dizziness, lightheadedness, near syncope, syncope or weakness Endo Endo: Positive for fatigue Cardiology Exam Const Appearance: comfortable and no acute distress Nutritional Appearance: well nourished Neck Neck: no JVD Carotids: Negative bruit Chest Auscultation: Bilateral: Clear to Auscultation Cardio Rate: regular rate Rhythm: regular rhythm Heart sounds: S1 normal and S2 normal Neuro General: patient alert, patient awake and patient oriented x3 Extremities Lower Extremity Edema: None: Bilateral Supplemental Info Supplemental Information Echo Complete w/Contrast 05/30/2024: Interpretation Summary The estimated ejection fraction is 65 %. Mild (1+) tricuspid valve insufficiency. No evidence for diastolic dysfunction. Normal LV size. The study was technically diffi (more content not included)... Normal [facility] CBC W/Diff, Automatedon - Absolute Lymph 2.12 X10 3/uL Normal 0.83-4.51 [facility] Comment on above: Order Comment: Urine , Random Performed By: #### L 400.0001 #### [facility] [address] [place], [address] Absolute Neut 2.8 X10 3/uL Normal 2.0-7.7 [facility] Comment on above: Order Comment: Urine , Random Performed By: #### L 400.0001 #### [facility] [address] [place], [address] Basophils/100 WBC (Bld) 0.9 % Normal 0-1 [facility] Comment on above: Order Comment: Urine , Random Performed By: #### L 400.0001 #### [facility] [address] [place], [address] Eosinophils/100 WBC (Bld) 2.6 % Normal 0-5 [facility] Comment on above: Order Comment: Urine , Random Performed By: #### L 400.0001 #### [facility] [address] [place], [address] Erythrocyte distribution width (RBC) [Ratio] 12.9 % Normal 11.6-14.6 [facility] Comment on above: Order Comment: Urine , Random Performed By: #### L 400.0001 #### [facility] [address] [place], [address] Hematocrit (Bld) [Volume fraction] 40.1 % Normal 37-47 [facility] Comment on above: Order Comment: Urine , Random Performed By: #### L 400.0001 #### [facility] [address] [place], [address] Hemoglobin (Bld) [Mass/Vol] 13.0 g/dL Normal 12.0-15.0 [facility] Comment on above: Order Comment: Urine , Random Performed By: #### L 400.0001 #### [facility] [address] [place], [address] IG% 0.000 Normal 0.0-0.9 [facility] Comment on above: Order Comment: Urine , Random Result Comment: IG% - Immature Granulocytes (promyelocytes, myelocytes and metamyelocytes) > 1% indicates that a LEFT SHIFT is Present. Performed By: #### L 400.0001 #### [facility] [address] [place], [address] Lymphocytes/100 WBC (Bld) 38.9 % Normal 19-41 [facility] Comment on above: Order Comment: Urine , Random Performed By: #### L 400.0001 #### [facility] [address] [place], [address] MCH (RBC) [Entitic mass] 30.2 pg Normal 27.0-32.0 [facility] Comment on above: Order Comment: Urine , Random Performed By: #### L 400.0001 #### [facility] [address] [place], [address] MCHC (RBC) [Mass/Vol] 32.4 g/dL Normal 32-36 [facility] Comment on above: Order Comment: Urine , Random Performed By: #### L 400.0001 #### [facility] [address] [place], [address] MCV (RBC) [Entitic vol] 93.3 fL Normal 81-99 [facility] Comment on above: Order Comment: Urine , Random Performed By: #### L 400.0001 #### [facility] [address] [place], [address] Monocytes/100 WBC (Bld) 6.6 % Normal 0-10 [facility] Comment on above: Order Comment: Urine , Random Performed By: #### L 400.0001 #### [facility] [address] [place], [address] Neutrophils/100 WBC (Bld) 51.0 % Normal 47-70 [facility] Comment on above: Order Comment: Urine , Random Performed By: #### L 400.0001 #### [facility] [address] [place], [address] Nucleated RBC (Bld) [#/Vol] 0 10*3/uL Normal 0-5 [facility] Comment on above: Order Comment: Urine , Random Performed By: #### L 400.0001 #### [facility] [address] [place], [address] Platelet mean volume (Bld) [Entitic vol] 9.8 fL Normal 6.2-12.0 [facility] Comment on above: Order Comment: Urine , Random Performed By: #### L 400.0001 #### [facility] [address] [place], [address] Platelets (Bld) [#/Vol] 306 10*3/uL Normal 150-450 [facility] Comment on above: Order Comment: Urine , Random Performed By: #### L 400.0001 #### [facility] [address] [place], [address] RBC (Bld) [#/Vol] 4.30 10*6/uL Normal 4.2-5.4 [facility] Comment on above: Order Comment: Urine , Random Performed By: #### L 400.0001 #### [facility] [address] [place], [address] RDW SD 44.1 fl High 35.1-43.9 [facility] Comment on above: Order Comment: Urine , Random Performed By: #### L 400.0001 #### [facility] [address] [place], [address] WBC (Bld) [#/Vol] 5.5 10*3/uL Normal 4.4-11.0 [facility] Comment on above: Order Comment: Urine , Random Performed By: #### L 400.0001 #### [facility] [address] [place], [address] Ferritinon 06-05-2024 Ferritin [Mass/Vol] 81 ng/mL Normal 8-252 [facility] Comment on above: Order Comment: Urine , Random Performed By: #### L 400.0001 #### [facility] [address] [place], [address] Iron+Iron Binding Capacityon 06-05-2024 Iron [Mass/Vol] 85 ug/dL Normal 50-170 [facility] Comment on above: Order Comment: Urine , Random Performed By: #### L 400.0001 #### [facility] [address] [place], [address] IRON SATURATION 25.4 Normal 15.0-55.0 [facility] Comment on above: Order Comment: Urine , Random Performed By: #### L 400.0001 #### [facility] [address] [place], [address] TIBC 335 ug/dL Normal 250-450 [facility] Comment on above: Order Comment: Urine , Random Performed By: #### L 400.0001 #### [facility] [address] [place], [address] CBC W/Diff, Automatedon 05-07 Absolute Lymph 2.73 X10 3/uL Normal 0.83-4.51 [facility] Comment on above: Performed By: #### L 500.4050, L501.2300, L100.0100, L501.5200 #### [facility] [address] [place], [address] Absolute Neut 2.3 X10 3/uL Normal 2.0-7.7 [facility] Comment on above: Performed By: #### L 500.4050, L501.2300, L100.0100, L501.5200 #### [facility] [address] [place], [address] Basophils/100 WBC (Bld) 0.9 % Normal 0-1 [facility] Comment on above: Performed By: #### L 500.4050, L501.2300, L100.0100, L501.5200 #### [facility] [address] [place], [address] Eosinophils/100 WBC (Bld) 3.0 % Normal 0-5 [facility] Comment on above: Performed By: #### L 500.4050, L501.2300, L100.0100, L501.5200 #### [facility] [address] [place], [address] Erythrocyte distribution width (RBC) [Ratio] 12.7 % Normal 11.6-14.6 [facility] Comment on above: Performed By: #### L 500.4050, L501.2300, L100.0100, L501.5200 #### [facility] [address] [place], [address] Hematocrit (Bld) [Volume fraction] 37.0 % Normal 37-47 [facility] Comment on above: Performed By: #### L 500.4050, L501.2300, L100.0100, L501.5200 #### [facility] [address] [place], [address] Hemoglobin (Bld) [Mass/Vol] 12.4 g/dL Normal 12.0-15.0 [facility] Comment on above: Performed By: #### L 500.4050, L501.2300, L100.0100, L501.5200 #### [facility] [address] [place], [address] IG% 0.200 Normal 0.0-0.9 [facility] Comment on above: Result Comment: IG% - Immature Granulocytes (promyelocytes, myelocytes and metamyelocytes) > 1% indicates that a LEFT SHIFT is Present. Performed By: #### L 500.4050, L501.2300, L100.0100, L501.5200 #### [facility] [address] [place], [address] Lymphocytes/100 WBC (Bld) 48.4 % High 19-41 [facility] Comment on above: Performed By: #### L 500.4050, L501.2300, L100.0100, L501.5200 #### [facility] [address] [place], [address] MCH (RBC) [Entitic mass] 31.0 pg Normal 27.0-32.0 [facility] Comment on above: Performed By: #### L 500.4050, L501.2300, L100.0100, L501.5200 #### [facility] [address] [place], [address] MCHC (RBC) [Mass/Vol] 33.5 g/dL Normal 32-36 [facility] Comment on above: Performed By: #### L 500.4050, L501.2300, L100.0100, L501.5200 #### [facility] [address] [place], [address] MCV (RBC) [Entitic vol] 92.5 fL Normal 81-99 [facility] Comment on above: Performed By: #### L 500.4050, L501.2300, L100.0100, L501.5200 #### [facility] [address] [place], [address] Monocytes/100 WBC (Bld) 6.6 % Normal 0-10 [facility] Comment on above: Performed By: #### L 500.4050, L501.2300, L100.0100, L501.5200 #### [facility] [address] [place], [address] Neutrophils/100 WBC (Bld) 40.9 % Low 47-70 [facility] Comment on above: Performed By: #### L 500.4050, L501.2300, L100.0100, L501.5200 #### [facility] [address] [place], [address] Nucleated RBC (Bld) [#/Vol] 0 10*3/uL Normal 0-5 [facility] Comment on above: Performed By: #### L 500.4050, L501.2300, L100.0100, L501.5200 #### [facility] [address] [place], [address] Platelet mean volume (Bld) [Entitic vol] 9.3 fL Normal 6.2-12.0 [facility] Comment on above: Performed By: #### L 500.4050, L501.2300, L100.0100, L501.5200 #### [facility] [address] [place], [address] Platelets (Bld) [#/Vol] 325 10*3/uL Normal 150-450 [facility] Comment on above: Performed By: #### L 500.4050, L501.2300, L100.0100, L501.5200 #### [facility] [address] [place], [address] RBC (Bld) [#/Vol] 4.00 10*6/uL Low 4.2-5.4 [facility] Comment on above: Performed By: #### L 500.4050, L501.2300, L100.0100, L501.5200 #### [facility] [address] [place], [address] RDW SD 42.9 fl Normal 35.1-43.9 [facility] Comment on above: Performed By: #### L 500.4050, L501.2300, L100.0100, L501.5200 #### [facility] [address] [place], [address] WBC (Bld) [#/Vol] 5.6 10*3/uL Normal 4.4-11.0 [facility] Comment on above: Performed By: #### L 500.4050, L501.2300, L100.0100, L501.5200 #### [facility] [address] [place], [address] Comprehensive Metabolic [facility] ilon 05-30-2024 Albumin [Mass/Vol] 3.5 g/dL Normal 3.2-5.0 [facility] Comment on above: Performed By: #### L 500.4050, L501.2300, L100.0100, L501.5200 #### [facility] [address] [place], [address] Albumin/Globulin [Mass ratio] 0.9 {ratio} Normal 0.9-2.4 [facility] Comment on above: Performed By: #### L 500.4050, L501.2300, L100.0100, L501.5200 #### [facility] [address] [place], [address] ALK P 76 U/L Normal 45-117 [facility] Comment on above: Performed By: #### L 500.4050, L501.2300, L100.0100, L501.5200 #### [facility] [address] [place], [address] ALT [Catalytic activity/Vol] 14 U/L Normal 13-56 [facility] Comment on above: Performed By: #### L 500.4050, L501.2300, L100.0100, L501.5200 #### [facility] [address] [place], [address] AST [Catalytic activity/Vol] 12 U/L Low 15-37 [facility] Comment on above: Performed By: #### L 500.4050, L501.2300, L100.0100, L501.5200 #### [facility] [address] [place], [address] Bilirubin [Mass/Vol] 0.50 mg/dL Normal 0.20-1.00 [facility] Comment on above: Result Comment: For patients on eltrombopag therapy, use of Dimension Landis TBIL is not recommended. Performed By: #### L 500.4050, L501.2300, L100.0100, L501.5200 #### [facility] [address] [place], [address] BUN/CRE 24.4 RATIO High 10-20 [facility] Comment on above: Performed By: #### L 500.4050, L501.2300, L100.0100, L501.5200 #### [facility] [address] [place], [address] CA,Total 8.8 mg/dL Normal 8.5-10.1 [facility] Comment on above: Performed By: #### L 500.4050, L501.2300, L100.0100, L501.5200 #### [facility] [address] [place], [address] Chloride [Moles/Vol] 110 mmol/L High 98-107 [facility] Comment on above: Performed By: #### L 500.4050, L501.2300, L100.0100, L501.5200 #### [facility] [address] [place], [address] CO2 [Moles/Vol] 25.0 mmol/L Normal 21.0-32.0 [facility] Comment on above: Performed By: #### L 500.4050, L501.2300, L100.0100, L501.5200 #### [facility] [address] [place], [address] Creatinine [Mass/Vol] 0.57 mg/dL Normal 0.55-1.02 [facility] Comment on above: Result Comment: The validity of the calculated GFR GFRAA in patients over 70 years has not been determined. Clinical correlation is essential. Performed By: #### L 500.4050, L501.2300, L100.0100, L501.5200 #### [facility] [address] [place], [address] ECRCL 63.47 ml/min Normal [facility] Comment on above: Performed By: #### L 500.4050, L501.2300, L100.0100, L501.5200 #### [facility] [address] [place], [address] EST GFR - AA 134 mL/min Normal >60 [facility] Comment on above: Result Comment: Afri can Finnish GFR Calc Performed By: #### L 500.4050, L501.2300, L100.0100, L501.5200 #### [facility] [address] [place], [address] GAP 6 Normal 5-15 [facility] Comment on above: Performed By: #### L 500.4050, L501.2300, L100.0100, L501.5200 #### [facility] [address] [place], [address] GFR/1.73 sq M.predicted among non-blacks MDRD (S/P/Bld) [Vol rate/Area] 111 mL/min/{1.73_m2} Normal >60 [facility] Comment on above: Result Comment: Non- GFR Calc Performed By: #### L 500.4050, L501.2300, L100.0100, L501.5200 #### [facility] [address] [place], [address] Globulin (S) [Mass/Vol] 3.9 g/dL Normal 2.2-4.2 [facility] Comment on above: Performed By: #### L 500.4050, L501.2300, L100.0100, L501.5200 #### [facility] [address] [place], [address] Glucose [Mass/Vol] 104 mg/dL Normal 74-106 [facility] Comment on above: Result Comment: Fast ing Glucose result from 100 to 125 mg/dL suggests IMPAIRED HOMEOSTASIS per A.D.A. criteria. Performed By: #### L 500.4050, L501.2300, L100.0100, L501.5200 #### [facility] [address] [place], [address] Potassium [Moles/Vol] 4.0 mmol/L Normal 3.5-5.1 [facility] Comment on above: Performed By: #### L 500.4050, L501.2300, L100.0100, L501.5200 #### [facility] [address] [place], [address] Sodium [Moles/Vol] 141 mmol/L Normal 136-145 [facility] Comment on above: Performed By: #### L 500.4050, L501.2300, L100.0100, L501.5200 #### [facility] [address] [place], [address] T PROT 7.4 g/dL Normal 6.4-8.2 [facility] Comment on above: Performed By: #### L 500.4050, L501.2300, L100.0100, L501.5200 #### [facility] [address] [place], [address] Urea nitrogen [Mass/Vol] 14 mg/dL Normal 7-18 [facility] Comment on above: Performed By: #### L 500.4050, L501.2300, L100.0100, L501.5200 #### [facility] [address] [place], [address] Magnesiumon 05-30-2024 Magnesium [Mass/Vol] 2.0 mg/dL Normal 1.6-2.6 [facility] Comment on above: Performed By: #### L 500.4050, L501.2300, L100.0100, L501.5200 #### [facility] [address] [place], [address] Phosphoruson 05-30-2024 Phosphate [Mass/Vol] 4.2 mg/dL Normal 2.5-4.9 [facility] Comment on above: Performed By: #### L 500.4050, L501.2300, L100.0100, L501.5200 #### [facility] [address] [place], [address] Thyroid Stim Hormone (TSH)on 05-30-2024 TSH 1.110 uIU/mL Normal 0.358-3.74 0 [facility] Comment on above: Performed By: #### L 501.9520 #### [facility] [address] [place], [address] Urinalysis, Completeon 05-30 BACTERIA 1+ /hpf Normal None Seen [facility] Comment on above: Order Comment: Urine , Random Performed By: #### L 400.0001 #### [facility] [address] [place], [address] EPI,SQUAMOUS 5-10 SEEN Normal 5-10 [facility] Comment on above: Order Comment: Urine , Random Performed By: #### L 400.0001 #### [facility] [address] [place], [address] RBC 10-25 SEEN Normal 0-5 [facility] Comment on above: Order Comment: Urine , Random Performed By: #### L 400.0001 #### [facility] [address] [place], [address] WBC 5-10 SEEN Normal 0-5 [facility] Comment on above: Order Comment: Urine , Random Performed By: #### L 400.0001 #### [facility] [address] [place], [address] Mucus Ql (Urine sed) 0 SEEN Normal [facility] Comment on above: Order Comment: Urine , Random Performed By: #### L 400.0001 #### [facility] [address] [place], [address] 12 Lead EKGon 05-29-2024 12 Lead EKG [facility] Cardi[facility] Services [address] [place] [address] 12 Lead EKG 05/29/242027 MR#: [id number] Acct: [id number] Name: JENNIFER ZULETA Rep #: [id number] : 1955 69 From: Tyler Gupta MD Attending Dr: Dr. Danni So DO Status: ADM I N Ordering Dr: Kathy Fairbanks DO Date: 05/29/24 Location: [facility] Sex: F C Admitted: 05/29/24 Test Reason : PALPS Blood Pressure : / mmHG Vent. Rate : 070 BPM Atrial Rate : 070 BPM P-R Int : 178 ms QRS Dur : 076 ms QT Int : 414 ms P-R-T Axes : 050 011 030 degrees QTc Int : 447 ms Normal sinus rhythm Normal ECG Confirmed by TYLER GUPTA MD ([id number]), senior editor BETTY FERGUSON ([id number]) on 05/30/2024 10:01:16 AM Referred By: CG Confirmed By:TYLER GUPTA MD 05/30/24 1001 Date Tyler Gupta MD CC: Dr. Edel Nickerson MD; Dr. Kathy Fairbanks DO; Dr. Danni So DO Signed Normal [facility] BNP,B-Type NATRIURETIC PEPTI Keyonna 05-29-2024 Natriuretic peptide B (Bld) [Mass/Vol] 13.7 pg/mL Normal 0-100 [facility] Comment on above: Performed By: #### L 400.0001 #### [facility] [address] [place], [address] Basic Metabolic Profile (BMP )on 05-29-2024 BUN/CRE 26.9 RATIO High 10-20 [facility] Comment on above: Order Comment: 'TROP ' Serial specimen #1, #2 or #3: 2 Performed By: #### L 501.4020 #### [facility] [address] [place], [address] CA,Total 9.1 mg/dL Normal 8.5-10.1 [facility] Comment on above: Order Comment: 'TROP ' Serial specimen #1, #2 or #3: 2 Performed By: #### L 501.4020 #### [facility] [address] [place], [address] Chloride [Moles/Vol] 107 mmol/L Normal 98-107 [facility] Comment on above: Order Comment: 'TROP ' Serial specimen #1, #2 or #3: 2 Performed By: #### L 501.4020 #### [facility] [address] [place], [address] CO2 [Moles/Vol] 24.0 mmol/L Normal 21.0-32.0 [facility] Comment on above: Order Comment: 'TROP ' Serial specimen #1, #2 or #3: 2 Performed By: #### L 501.4020 #### [facility] [address] [place], [address] Creatinine [Mass/Vol] 0.63 mg/dL Normal 0.55-1.02 [facility] Comment on above: Order Comment: 'TROP ' Serial specimen #1, #2 or #3: 2 Result Comment: The validity of the calculated GFR GFRAA in patients over 70 years has not been determined. Clinical correlation is essential. Performed By: #### L 501.4020 #### [facility] [address] [place], [address] ECRCL 63.59 ml/min Normal [facility] Comment on above: Order Comment: 'TROP ' Serial specimen #1, #2 or #3: 2 Performed By: #### L 501.4020 #### [facility] [address] [place], [address] EST GFR - AA 119 mL/min Normal >60 [facility] Comment on above: Order Comment: 'TROP ' Serial specimen #1, #2 or #3: 2 Result Comment: Afri can Finnish GFR Calc Performed By: #### L 501.4020 #### [facility] [address] [place], [address] GAP 7 Normal 5-15 [facility] Comment on above: Order Comment: 'TROP ' Serial specimen #1, #2 or #3: 2 Performed By: #### L 501.4020 #### [facility] [address] [place], [address] GFR/1.73 sq M.predicted among non-blacks MDRD (S/P/Bld) [Vol rate/Area] 99 mL/min/{1.73_m2} Normal >60 [facility] Comment on above: Order Comment: 'TROP ' Serial specimen #1, #2 or #3: 2 Result Comment: Non- GFR Calc Performed By: #### L 501.4020 #### [facility] [address] [place], [address] Glucose [Mass/Vol] 99 mg/dL Normal 74-106 [facility] Comment on above: Order Comment: 'TROP ' Serial specimen #1, #2 or #3: 2 Performed By: #### L 501.4020 #### [facility] [address] [place], [address] Potassium [Moles/Vol] 3.7 mmol/L Normal 3.5-5.1 [facility] Comment on above: Order Comment: 'TROP ' Serial specimen #1, #2 or #3: 2 Performed By: #### L 501.4020 #### [facility] [address] [place], [address] Sodium [Moles/Vol] 138 mmol/L Normal 136-145 [facility] Comment on above: Order Comment: 'TROP ' Serial specimen #1, #2 or #3: 2 Performed By: #### L 501.4020 #### [facility] [address] [place], [address] Urea nitrogen [Mass/Vol] 17 mg/dL Normal 7-18 [facility] Comment on above: Order Comment: 'TROP ' Serial specimen #1, #2 or #3: 2 Performed By: #### L 501.4020 #### [facility] [address] [place], [address] CBC W/Diff, Automatedon 10-2 Absolute Lymph 2.69 X10 3/uL Normal 0.83-4.51 [facility] Comment on above: Performed By: #### L 501.4020, L100.0100, L300.4310, L500.2500, L300.3900 #### [facility] [address] [place], [address] Absolute Neut 3.2 X10 3/uL Normal 2.0-7.7 [facility] Comment on above: Performed By: #### L 501.4020, L100.0100, L300.4310, L500.2500, L300.3900 #### [facility] [address] [place], [address] Basophils/100 WBC (Bld) 0.8 % Normal 0-1 [facility] Comment on above: Performed By: #### L 501.4020, L100.0100, L300.4310, L500.2500, L300.3900 #### [facility] [address] [place], [address] Eosinophils/100 WBC (Bld) 1.7 % Normal 0-5 [facility] Comment on above: Performed By: #### L 501.4020, L100.0100, L300.4310, L500.2500, L300.3900 #### [facility] [address] [place], [address] Erythrocyte distribution width (RBC) [Ratio] 12.6 % Normal 11.6-14.6 [facility] Comment on above: Performed By: #### L 501.4020, L100.0100, L300.4310, L500.2500, L300.3900 #### [facility] [address] [place], [address] Hematocrit (Bld) [Volume fraction] 36.3 % Low 37-47 [facility] Comment on above: Performed By: #### L 501.4020, L100.0100, L300.4310, L500.2500, L300.3900 #### [facility] [address] [place], [address] Hemoglobin (Bld) [Mass/Vol] 12.4 g/dL Normal 12.0-15.0 [facility] Comment on above: Performed By: #### L 501.4020, L100.0100, L300.4310, L500.2500, L300.3900 #### [facility] [address] [place], [address] IG% 0.300 Normal 0.0-0.9 [facility] Comment on above: Result Comment: IG% - Immature Granulocytes (promyelocytes, myelocytes and metamyelocytes) > 1% indicates that a LEFT SHIFT is Present. Performed By: #### L 501.4020, L100.0100, L300.4310, L500.2500, L300.3900 #### [facility] [address] [place], [address] Lymphocytes/100 WBC (Bld) 41.7 % High 19-41 [facility] Comment on above: Performed By: #### L 501.4020, L100.0100, L300.4310, L500.2500, L300.3900 #### [facility] [address] [place], [address] MCH (RBC) [Entitic mass] 31.2 pg Normal 27.0-32.0 [facility] Comment on above: Performed By: #### L 501.4020, L100.0100, L300.4310, L500.2500, L300.3900 #### [facility] [address] [place], [address] MCHC (RBC) [Mass/Vol] 34.2 g/dL Normal 32-36 [facility] Comment on above: Performed By: #### L 501.4020, L100.0100, L300.4310, L500.2500, L300.3900 #### [facility] [address] [place], [address] MCV (RBC) [Entitic vol] 91.2 fL Normal 81-99 [facility] Comment on above: Performed By: #### L 501.4020, L100.0100, L300.4310, L500.2500, L300.3900 #### [facility] [address] [place], [address] Monocytes/100 WBC (Bld) 5.4 % Normal 0-10 [facility] Comment on above: Performed By: #### L 501.4020, L100.0100, L300.4310, L500.2500, L300.3900 #### [facility] [address] [place], [address] Neutrophils/100 WBC (Bld) 50.1 % Normal 47-70 [facility] Comment on above: Performed By: #### L 501.4020, L100.0100, L300.4310, L500.2500, L300.3900 #### [facility] [address] [place], [address] Nucleated RBC (Bld) [#/Vol] 0 10*3/uL Normal 0-5 [facility] Comment on above: Performed By: #### L 501.4020, L100.0100, L300.4310, L500.2500, L300.3900 #### [facility] [address] [place], [address] Platelet mean volume (Bld) [Entitic vol] 9.0 fL Normal 6.2-12.0 [facility] Comment on above: Performed By: #### L 501.4020, L100.0100, L300.4310, L500.2500, L300.3900 #### [facility] [address] [place], [address] Platelets (Bld) [#/Vol] 328 10*3/uL Normal 150-450 [facility] Comment on above: Performed By: #### L 501.4020, L100.0100, L300.4310, L500.2500, L300.3900 #### [facility] [address] [place], [address] RBC (Bld) [#/Vol] 3.98 10*6/uL Low 4.2-5.4 [facility] Comment on above: Performed By: #### L 501.4020, L100.0100, L300.4310, L500.2500, L300.3900 #### [facility] [address] [place], [address] RDW SD 41.8 fl Normal 35.1-43.9 [facility] Comment on above: Performed By: #### L 501.4020, L100.0100, L300.4310, L500.2500, L300.3900 #### [facility] [address] [place], [address] WBC (Bld) [#/Vol] 6.5 10*3/uL Normal 4.4-11.0 [facility] Comment on above: Performed By: #### L 501.4020, L100.0100, L300.4310, L500.2500, L300.3900 #### [facility] [address] [place], [address] CTA Chest W/WO Contraston CTA Chest W/WO Contrast [facility] Imaging Services [address] [place] [address] CTA Chest W/WO Contrast MR#: [id number] Acct: [id number] Name: JENNIFER ZULETA Rep #: [id number] : 1955 F 69 From: Carlos Carrasco PCP: Dr. Edel Nickerson MD Status: [facility] Study: CTA Chest W/WO Contrast Date of Exam: 05/29/24 Exam# [id number] Ordering Dr: dEel Nickerson MD ADDENDUM by Dr. Carlos Pollard MD on 05/29/24 at 1733 :[id number] STUDY: CTA CHEST REASON FOR EXAM: Female, 69 years old. SUDDEN ONSET DYSPNEA RADIATION DOSAGE (If Supplied By Facility): CTDIvol = ( 18.93 ) mGy, DLP = ( 518.84 ) mGycm TECHNIQUE: The examination was performed with the intravenous administration of IV 100mL Isovue-370. Post-processing of the angiographic images was performed, with multiplanar reformation and 3D reconstruction. Individualized dose optimization techniques were used for this CT. COMPARISON: None. FINDINGS: Tubes and lines: 1. No life-support noted. CTA: PULMONARY ARTERIES: There is normal configuration and contrast opacification of main pulmonary outflow tract, and normal appearance of the proximal pulmonary arteries bilaterally. There is however thrombus in the distal RIGHT pulmonary artery at its bifurcation with small fragments of thrombus extending into the RIGHT upper lobe and RIGHT lower lobe pulmonary arteries. There is a small section of thrombus extending into the LEFT lower lobe pulmonary arterial branch extending into the medial basal segment of the LEFT lower lobe. Medial basal pulmonary artery extending into LEFT lower lobe. No evidence of ventricular strain. AORTIC ARCH: There is ectasia of the ascending aorta with maximal transverse dimension of 3.8 cm. No evidence of dissection. Normal appearance of the origin of the great vessels. HEART: Cardiac contour is normal. No evidence pericardial effusion. CT CHEST: LUNGS: [Unremarkable. No mass. No consolidation. PLEURAL SPACES: Unremarkable, no effusion or pneumothorax.. MEDIASTINUM AND LYMPH NODES: Unremarkable. No significant adenopathy. BONES: Diffuse thoracic spondylosis noted. There are postoperative changes involving the RIGHT shoulder. No acute bony changes noted. No acutely acquired canal stenosis. ABDOMEN: Within normal limits. Other: None IMPRESSIONS: 1. There is filling defect/pulmonary embolism involving the distal RIGHT main pulmonary artery extending into the lobar pulmonary artery branches into the RIGHT upper lobe and RIGHT lower lobe I, additional intralobar branch of the lower lobe pulmonary artery extending into the medial basal segment LEFT lower lobe. No evidence of ventricular strain. 2. There is mild ectasia of the ascending aorta without dissection. 3. Normal CT appearance of the heart and pericardium. 4. No focal infiltrate consolidation or effusion noted. N.B. : The above Results were Read Back by Carlos Pollard MD to Sascha Swift MD, and understanding confirmed on 05/29/2024 17:57:08 (ET). Electronically Signed: Carlos Pollard MD at 17:33 EDT , 05/29/24 1733 Date cc: Dr. Edel Nickerson MD * Signed ADDENDUM by Dr. Carlos oPllard MD on 05/29/[address]33 [address]/CTA Chest W/WO Contrast IMPRESSION: undefined 05/29/24 1804 Date cc: Dr. Edel Nickerson MD * Signed We are attempting to reach an attending provider to discuss findings. An addendum with communication details will be sent when the communication is complete. :[id number] STUDY: CTA CHEST REASON FOR EXAM: Female, 69 years old. SUDDEN ONSET DYSPNEA RADIATION DOSAGE (If Supplied By Facility): CTDIvol = ( 18.93 ) mGy, DLP = ( 518.84 ) mGycm TECHNIQUE: The examination was performed with the intravenous administration of IV 100mL Isovue-370. Post-processing of the angiographic images was performed, with multiplanar reformation and 3D reconstruction. Individualized dose optimization techniques were used for this CT. COMPARISON: None. FINDINGS: Tubes and lines: 1. No life-support noted. CTA: PULMONARY ARTERIES: There is normal configuration and contrast opacification of main pulmonary outflow tract, and normal appearance of the proximal pulmonary arteries bilaterally. There is however thrombus in the distal RIGHT pulmonary artery at its bifurcation with small fragments of thrombus extending into the RIGHT upper lobe and RIGHT lower lobe pulmonary arteries. There is a small section of thrombus extending into the LEFT lower lobe pulmonary arterial branch extending in (more content not included)... Normal [facility] Echo Complete W/ Contraston 05-29-2024 Echo Complete W/ Contrast [facility] [address] [place] [address] Echo Complete W/ Contrast 05/30/24 08 MR#: [id number] Acct: [id number] Name: JENNIFER ZULETA Rep #: [id number] : 1955 69 From: Tyler Gupta MD Attending Dr: Dr. Danni So DO Status: ADM I N Ordering Dr: Haroldo Liu DO Date: 05/29/24 Location: [facility] Sex: F C Admitted: 05/29/24 Reason For Study: EMBOLI Procedure This was a 2D Doppler, Color Flow transthoracic echocardiogram. The study was technically difficult. Exam performed supine due to recent shoulder surgery. Contrast injection was performed. Left Ventricle Normal LV size. Mid cavitary false tendon noted. The estimated ejection fraction is 65 %. No evidence for diastolic dysfunction. No regional wall motion abnormalities noted. Right Ventricle Normal right ventricle. Normal systolic function. Atria Normal left atrium. Normal right atrium. Mitral Valve The mitral valve is structurally normal. No prolapse or stenosis seen. Tricuspid Valve Normal tricuspid valve. Mild (1+) tricuspid valve insufficiency. Unable to estimate RV systolic pressure due to insufficient tricuspid regurgitant envelope. Aortic Valve The aortic valve is not well visualized in the short axis view. There is no aortic stenosis. Pulmonic Valve The pulmonic valve is not well visualized. Great Vessels Normal aortic root. The pulmonary artery is normal size. Inferior vena cava collapse with respiration. Pericardium/Pleural No pericardial effusion. Medication Diluted definity 1.5ml given slow IV push to enhance endocardial definition. MMode/2D Measurements Calculations LVIDd: 3.8 cm IVSd: 0.87 cm Ao root diam: 2.9 cm LVIDs: 2.5 cm LVPWd: 0.86 cm RVDd: 2.2 cm FS: 33.9 % LAV(MOD-bp): 36.4 ml LVAd ap4: 30.1 cm2 SV(MOD-sp4): 68.2 ml LAV(MOD-bp) Indexed: 20.4 ml/m2 LVLd ap4: 7.5 cm LAV(MOD-sp2): 35.2 ml EDV(MOD-sp4): 98.8 ml LAV(MOD-sp4): 34.8 ml EDV(sp4-el): 102.3 ml LVAs ap4: 15.8 cm2 LVLs ap4: 6.8 cm ESV(MOD-sp4): 30.7 ml ESV(sp4-el): 31.2 ml EF(MOD-sp4): 69.0 % EF(sp4-el): 69.5 % SV(sp4-el): 71.1 ml LA A4 area: 14.3 cm2 LA dimension(2D): 2.8 cm RA A4 area: 10.7 cm2 TAPSE: 1.9 cm Time Measurements MV dec time: 0.24 sec Doppler Measurements Calculations MV E max sushma: 70.1 cm/sec Lat Peak E' Sushma: 7.3 cm/sec Med Peak E' Sushma: 8.0 cm/sec MV A max sushma: 80.1 cm/sec E/E' lat: 9.7 E/E' med: 8.8 MV E/A: 0.88 MV V2 max: 91.9 cm/sec MV P1/2t max sushma: 76.8 cm/sec Ao V2 max: 103.5 cm/sec MV max P.4 mmHg MV P1/2t: 71.7 msec Ao max P.3 mmHg MV V2 mean: 45.6 cm/sec MV dec slope: 313.5 cm/sec2 Ao V2 mean: 71.3 cm/sec MV mean P.1 mmHg MVA(P1/2t): 3.1 cm2 Ao mean P.3 mmHg MV V2 VTI: 22.2 cm Ao V2 VTI: 18.9 cm AV (velocity ratio): 0.97 LV V1 max: 92.5 cm/sec PA V2 max: 63.5 cm/sec LV V1 max P.4 mmHg PA V2 mean: 47.7 cm/sec LV V1 mean P.9 mmHg LV V1 mean: 65.7 cm/sec LV V1 VTI: 18.4 cm ECHO/Echo Complete W/ Contrast Interpretation Summary The estimated ejection fraction is 65 %. Mild (1+) tricuspid valve insufficiency. No evidence for diastolic dysfunction. Normal LV size. The study was technically difficult. Contrast injection was performed. Ordering Physician: Haroldo Liu Referring Physician: Edel Nickerson Performed By: Josefina Jones, RDCS, RVT 05/30/24 1049 Date Tyler Gupta MD CC: Dr. Edel Nickerson MD; Dr. Haroldo Liu DO; Dr. Danni So DO Date Dictated: 10/816 Date Transcribed: 05/30/24 1049 Hand Umbrella Tipper: Signed Normal [facility] Emergency Department Summary on 05-29-2024 Emergency Department Summary [facility] Medical Records Department [address] [place] [address] Emergency Department Summary 05/29/24 MR#: [id number] Acct: [id number] Name: JENNIFER ZULETA Rep #: [id number] : 1955 69 From: Kathy Fairbanks DO PCP: Dr. Edel Nickerson MD Status:ADM IN Location: [place] [address] HPI History of Present Illness Chief Complaint: Shortness of Breath Informant: patient Narrative Narrative: Patient is a 69-year-old female who had right shoulder replacement at [facility] earlier this month. She states for the past few days she has been feeling lousy and been more short of breath. Feels that she is struggling to do her daily activities. She is actively on exertion. Yesterday her daughter physical therapist noticed and thought that she should be evaluated for blood clot. Her primary care doctor ordered a CTA which was positive for PE and she was sent down to the emergency room. She denies any chest pain or leg swelling. Denies a history of DVT or PE. She has been on 81 mg aspirin lately. No other complaints or concerns reported at this time. [facility] Medical History Urgency of urination Right wrist fracture Concussion GERD (gastroesophageal reflux disease) Bunion Home Medications ???Medication ???Instructions ???Recorded ???Last Taken ???Type escitalopram oxalate 10 mg tablet 10 mg PO DAILY 07/20/20 Unknown History (Lexapro) levothyroxine 112 mcg tablet See Rx Instructions PO DAILY 07/20/20 Unknown History (Synthroid) multivitamin 1 tab PO DAILY 04/10/23 Unknown History zolpidem 5 mg tablet (Ambien) 5 mg PO QHS PRN insomnia #30 tabs 08/17/23 Unknown Rx Allergy/AdvReac Type Severity Reaction Status Date / Time Penicillins (PCN) Allergy Anaphylaxis Verified 05/29/24 17:23 Family History Father Colon cancer, Onset Age: 80 Kidney disease Mother Hypertension Surgical History H/O wrist surgery S/P LEEP History of surgery on arm History of esophagogastroduodenoscopy (EGD) ( 06/2020) History of colonoscopy ( 06/2020) History of bunionectomy History of cataract extraction Social History number of children: 2 current occupational status: employed current occupation: [email or web address] Smoking Status: Never smoker alcohol intake: current alcohol intake frequency: 3 or more drinks per day substance use type: does not use diet: vegetarian seatbelt use: always do you feel safe at home: Yes ROS ROS ED Constitutional Constitutional ED: Denies chills or fever(s) Cardiovascular Cardiovascular: Denies chest pain Respiratory/Chest Respiratory/Chest: Reports dyspnea and dyspnea on exertion; Denies cough Gastrointestinal Gastrointestinal: Denies nausea or vomiting Musculoskeletal Musculoskeletal: Reports other Details: post op right shoulder pain ; Denies arthralgias or myalgias Integumentary Denies rash Neurologic Neurologic: Denies paresthesias or weakness Hematologic/Lymphatic Hematologic/Lymphatic: Denies easy bleeding or easy bruising EXAM Physical Exam Const Vital Signs: 05/29/24 17:19 05/29/24 18:19 05/29/24 18:57 Temperature 98 F Temperature Source Oral Pulse Rate 79 80 Respiratory Rate 16 23 H Respiratory Effort Short of Breath Respiratory Depth Normal Respiratory Pattern Normal Blood Pressure 165/102 H 174/96 H Blood Pressure Mean 123 122 Pulse Ox 98 100 Oxygen Delivery Method Room Air Room Air Room Air 05/29/24 19:00 05/29/24 20:00 05/29/24 21:00 Temperature Temperature Source Pulse Rate 75 81 80 Respiratory Rate 21 H 23 H 20 H Respiratory Effort Respiratory Depth Respiratory Pattern Blood Pressure 151/92 H 151/91 H Blood Pressure Mean 111 111 Pulse Ox 99 98 94 Oxygen Delivery Method Room Air Room Air 05/29/24 22:00 05/29/24 22:08 Temperature 97.9 F Temperature Source Pulse Rate 72 71 Respiratory Rate 18 19 H Respiratory Effort Respiratory Depth Respiratory Pattern Blood Pressure 172/102 H 172/102 H Blood Pressure Mean 125 125 Pulse Ox 96 96 Oxygen Delivery Method Room Air Positive well nourished General Appearance ED: NAD HEENT Reports moist mucous membranes Eyes PERRL Neck supple and no JVD Resp normal respiratory effort and clear to auscultation bilaterally Cardio regular rate, regular rhythm and no murmurs Extremity Extremity Narrative: Decreased range of motion of the right shoulder from recent surgery, mild swelling of the right upper extremity. No peripheral edema of the lower extremities ap (more content not included)... Normal [facility] H AND P Exam - Hospitaliston 05-29-2024 H&P Exam - Hospitalist [facility] Medical Records Department [address] [place] [address] H P Exam - Hospitalist 05/29/24 2200 MR#: [id number] Acct: [id number] Name: JENNIFER ZULETA Rep #: [id number] : 1955 69 From: Haroldo Liu DO PCP: Dr. Edel Nickerson MD Status:ADM IN Location: [place] [address] HPI - General General Date of Admission: 05/29/24 Date of Service: 05/29/24 Chief Complaint: SOB. 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 Ms. Zuleta reports her symptoms began approximately 2-3 days prior to admission with her generally feeling unwell and with easy fatigability and POLO. Then earlier today she felt like she was really struggling just to do her ADL's which is unusual for her and her PT noted she should be evaluated for possible pulmonary embolism. Her PCP then ordered a CTA of the chest which returned positive for Multiple Pulmonary Emboli so she was sent to the ER for further evaluation and treatment. Interestingly, she denies chest pain, leg swelling or history of VTE. She states she has been taking her BASA daily as prescribed. She denies associated fever, chills, nausea, vomiting, diarrhea, constipation, palpitations, diaphoresis or headache. In the ER she was diagnosed with Multiple PE's complicated by elevated troponin of 107 pg/mL present on admission suggestive of possible Right heart strain in the setting of a Postoperative Complication after recent Right Shoulder Replacement in spite of daily BASA for DVT prophylaxis and she was then admitted to the PCU for ongoing care for a stay that is expected to extend beyond 2 midnights. [facility] Medical History Urgency of urination Right wrist fracture Concussion GERD (gastroesophageal reflux disease) Bunion Home Medications ???Medication ???Instructions ???Recorded ???Last Taken ???Type escitalopram oxalate 10 mg tablet 10 mg PO DAILY 07/20/20 Unknown History (Lexapro) levothyroxine 112 mcg tablet See Rx Instructions PO DAILY 07/20/20 Unknown History (Synthroid) multivitamin 1 tab PO DAILY 04/10/23 Unknown History zolpidem 5 mg tablet (Ambien) 5 mg PO QHS PRN insomnia #30 tabs 08/17/23 Unknown Rx Allergy/AdvReac Type Severity Reaction Status Date / Time Penicillins (PCN) Allergy Anaphylaxis Verified 05/29/24 17:23 Family History Father Colon cancer, Onset Age: 80 Kidney disease Mother Hypertension Surgical History H/O wrist surgery S/P LEEP History of surgery on arm History of esophagogastroduodenoscopy (EGD) ( 06/2020) History of colonoscopy ( 06/2020) History of bunionectomy History of cataract extraction Social History number of children: 2 current occupational status: employed current occupation: [email or web address] Smoking Status: Never smoker alcohol intake: current alcohol intake frequency: 3 or more drinks per day substance use type: does not use diet: vegetarian seatbelt use: always do you feel safe at home: Yes ROS ROS Narrative Review of Systems: Constitutional: Patient admits to fatigue and POLO but he denies fever or chills. Eyes: Patient denies changes in vision or discharge from eyes. ENT: Patient denies runny nose, sore throat or ear pain. Resp: Patient admits to SOB but she denies cough. CV: Patient denies chest pain, palpitations or heart racing. GI: Patient denies abdominal pain, nausea, vomiting, diarrhea or constipation. : Patient admits to incontinence but she denies dysuria or hematuria. MSK: Patient admits to Right shoulder pain after recent surgery. Skin: Patient denies rash, abscess or jaundice. Psych: Patient denies symptoms of uncontrolled depression or anxiety. Neuro: Patient denies headache, paresthesias or focal neurologic deficits. Allergy: Patient denies lip swelling, tongue swelling or urticaria. Hematology: Patient denies easy bleeding or history of VTE. Endocrinology: Patient denies polyuria, polydipsia or polyphagia. 14 point ROS otherwise negative except for positives note (more content not included)... Normal [facility] L501.4020on 05-29-2024 TROPONIN-I HS 110 pg/mL High 3.0-54.0 [facility] Comment on above: Order Comment: 'TROP ' Serial specimen #1, #2 or #3: 2 Result Comment: Plea se Note: New Test Units and Gender Specific Reference Ranges. For more information see Policy Stat Procedure [place] High Sensitivity Troponin (TNIH) and attachments. Performed By: #### L [id number] #### [facility] [address] [place], [address] TROPONIN-I HS 107 pg/mL High 3.0-54.0 [facility] Comment on above: Order Comment: 'TROP ' Serial specimen #1, #2 or #3: 2 Result Comment: Plea se Note: New Test Units and Gender Specific Reference Ranges. For more information see Policy Stat Procedure [place] High Sensitivity Troponin (TNIH) and attachments. Performed By: #### L [id number] #### [facility] [address] [place], [address] Partial Thromboplast Timeon 05-29-2024 aPTT Coag (Bld) [Time] 25.4 s Normal 24.1-36.2 [facility] Comment on above: Performed By: #### L [id number] #### [facility] [address] [place], [address] Prothrombin Time w/INRon - INR Coag (PPP) [Relative time] 1.1 {INR} Normal [facility] Comment on above: Performed By: #### L [id number] #### [facility] [address] [place], [address] PT Coag (PPP) [Time] 13.9 s Normal 11.7-14.9 [facility] Comment on above: Performed By: #### L [id number] #### [facility] [address] [place], [address] CBC W/Diff, Automatedon 09-2 0-2023 Absolute Lymph 2.49 X10 3/uL Normal 0.83-4.51 [facility] Comment on above: Order Comment: 'TROP ' Serial specimen #1, #2 or #3: 2 Performed By: #### L [id number] #### [facility] [address] [place], [address] Absolute Neut 4.1 X10 3/uL Normal 2.0-7.7 [facility] Comment on above: Order Comment: 'TROP ' Serial specimen #1, #2 or #3: 2 Performed By: #### L [id number] #### [facility] [address] [place], [address] Basophils/100 WBC (Bld) 0.7 % Normal 0-1 [facility] Comment on above: Order Comment: 'TROP ' Serial specimen #1, #2 or #3: 2 Performed By: #### L [id number] #### [facility] [address] [place], [address] Eosinophils/100 WBC (Bld) 2.2 % Normal 0-5 [facility] Comment on above: Order Comment: 'TROP ' Serial specimen #1, #2 or #3: 2 Performed By: #### L [id number] #### [facility] [address] [place], [address] Erythrocyte distribution width (RBC) [Ratio] 13.2 % Normal 11.6-14.6 [facility] Comment on above: Order Comment: 'TROP ' Serial specimen #1, #2 or #3: 2 Performed By: #### L [id number] #### [facility] [address] [place], [address] Hematocrit (Bld) [Volume fraction] 40.7 % Normal 37-47 [facility] Comment on above: Order Comment: 'TROP ' Serial specimen #1, #2 or #3: 2 Performed By: #### L [id number] #### [facility] [address] [place], [address] Hemoglobin (Bld) [Mass/Vol] 13.4 g/dL Normal 12.0-15.0 [facility] Comment on above: Order Comment: 'TROP ' Serial specimen #1, #2 or #3: 2 Performed By: #### L [id number] #### [facility] [address] [place], [address] IG% 0.300 Normal 0.0-0.9 [facility] Comment on above: Order Comment: 'TROP ' Serial specimen #1, #2 or #3: 2 Result Comment: IG% - Immature Granulocytes (promyelocytes, myelocytes and metamyelocytes) > 1% indicates that a LEFT SHIFT is Present. Performed By: #### L [id number] #### [facility] [address] [place], [address] Lymphocytes/100 WBC (Bld) 34.7 % Normal 19-41 [facility] Comment on above: Order Comment: 'TROP ' Serial specimen #1, #2 or #3: 2 Performed By: #### L [id number] #### [facility] [address] [place], [address] MCH (RBC) [Entitic mass] 30.8 pg Normal 27.0-32.0 [facility] Comment on above: Order Comment: 'TROP ' Serial specimen #1, #2 or #3: 2 Performed By: #### L [id number] #### [facility] [address] [place], [address] MCHC (RBC) [Mass/Vol] 32.9 g/dL Normal 32-36 [facility] Comment on above: Order Comment: 'TROP ' Serial specimen #1, #2 or #3: 2 Performed By: #### L [id number] #### [facility] [address] [place], [address] MCV (RBC) [Entitic vol] 93.6 fL Normal 81-99 [facility] Comment on above: Order Comment: 'TROP ' Serial specimen #1, #2 or #3: 2 Performed By: #### L [id number] #### [facility] [address] [place], [address] Monocytes/100 WBC (Bld) 5.3 % Normal 0-10 [facility] Comment on above: Order Comment: 'TROP ' Serial specimen #1, #2 or #3: 2 Performed By: #### L [id number] #### [facility] [address] [place], [address] Neutrophils/100 WBC (Bld) 56.8 % Normal 47-70 [facility] Comment on above: Order Comment: 'TROP ' Serial specimen #1, #2 or #3: 2 Performed By: #### L [id number] #### [facility] [address] [place], [address] Nucleated RBC (Bld) [#/Vol] 0 10*3/uL Normal 0-5 [facility] Comment on above: Order Comment: 'TROP ' Serial specimen #1, #2 or #3: 2 Performed By: #### L [id number] #### [facility] [address] [place], [address] Platelet mean volume (Bld) [Entitic vol] 10.2 fL Normal 6.2-12.0 [facility] Comment on above: Order Comment: 'TROP ' Serial specimen #1, #2 or #3: 2 Performed By: #### L [id number] #### [facility] [address] [place], [address] Platelets (Bld) [#/Vol] 316 10*3/uL Normal 150-450 [facility] Comment on above: Order Comment: 'TROP ' Serial specimen #1, #2 or #3: 2 Performed By: #### L [id number] #### [facility] [address] [place], [address] RBC (Bld) [#/Vol] 4.35 10*6/uL Normal 4.2-5.4 [facility] Comment on above: Order Comment: 'TROP ' Serial specimen #1, #2 or #3: 2 Performed By: #### L [id number] #### [facility] [address] [place], [address] RDW SD 45.4 fl High 35.1-43.9 [facility] Comment on above: Order Comment: 'TROP ' Serial specimen #1, #2 or #3: 2 Performed By: #### L [id number] #### [facility] [address] [place], [address] WBC (Bld) [#/Vol] 7.2 10*3/uL Normal 4.4-11.0 [facility] Comment on above: Order Comment: 'TROP ' Serial specimen #1, #2 or #3: 2 Performed By: #### L [id number] #### [facility] [address] [place], [address] Comprehensive Metabolic Prof ilon 04-25-2024 Albumin [Mass/Vol] 3.8 g/dL Normal 3.2-5.0 [facility] Comment on above: Order Comment: 'TROP ' Serial specimen #1, #2 or #3: 2 Performed By: #### L [id number] #### [facility] [address] [place], [address] Albumin/Globulin [Mass ratio] 1.0 {ratio} Normal 0.9-2.4 [facility] Comment on above: Order Comment: 'TROP ' Serial specimen #1, #2 or #3: 2 Performed By: #### L [id number] #### [facility] [address] [place], [address] ALK P 69 U/L Normal 45-117 [facility] Comment on above: Order Comment: 'TROP ' Serial specimen #1, #2 or #3: 2 Performed By: #### L [id number] #### [facility] [address] [place], [address] ALT [Catalytic activity/Vol] 21 U/L Normal 13-56 [facility] Comment on above: Order Comment: 'TROP ' Serial specimen #1, #2 or #3: 2 Performed By: #### L [id number] #### [facility] [address] [place], [address] AST [Catalytic activity/Vol] 22 U/L Normal 15-37 [facility] Comment on above: Order Comment: 'TROP ' Serial specimen #1, #2 or #3: 2 Performed By: #### L [id number] #### [facility] [address] [place], [address] Bilirubin [Mass/Vol] 0.40 mg/dL Normal 0.20-1.00 [facility] Comment on above: Order Comment: 'TROP ' Serial specimen #1, #2 or #3: 2 Result Comment: For patients on eltrombopag therapy, use of Dimension [place]is TBIL is not recommended. Performed By: #### L [id number] #### [facility] [address] [place], [address] BUN/CRE 18.6 RATIO Normal 10-20 [facility] Comment on above: Order Comment: 'TROP ' Serial specimen #1, #2 or #3: 2 Performed By: #### L [id number] #### [facility] [address] [place], [address] CA,Total 9.1 mg/dL Normal 8.5-10.1 [facility] Comment on above: Order Comment: 'TROP ' Serial specimen #1, #2 or #3: 2 Performed By: #### L [id number] #### [facility] [address] [place], [address] Chloride [Moles/Vol] 106 mmol/L Normal 98-107 [facility] Comment on above: Order Comment: 'TROP ' Serial specimen #1, #2 or #3: 2 Performed By: #### L [id number] #### [facility] [address] [place], [address] CO2 [Moles/Vol] 26.0 mmol/L Normal 21.0-32.0 [facility] Comment on above: Order Comment: 'TROP ' Serial specimen #1, #2 or #3: 2 Performed By: #### L [id number] #### [facility] [address] [place], [address] Creatinine [Mass/Vol] 0.86 mg/dL Normal 0.55-1.02 [facility] Comment on above: Order Comment: 'TROP ' Serial specimen #1, #2 or #3: 2 Result Comment: The validity of the calculated GFR GFRAA in patients over 70 years has not been determined. Clinical correlation is essential. Performed By: #### L [id number] #### [facility] [address] [place], [address] EST GFR - AA 84 mL/min Normal >60 [facility] Comment on above: Order Comment: 'TROP ' Serial specimen #1, #2 or #3: 2 Result Comment: Afri can Finnish GFR Calc Performed By: #### L [id number] #### [facility] [address] [place], [address] GAP 7 Normal 5-15 [facility] Comment on above: Order Comment: 'TROP ' Serial specimen #1, #2 or #3: 2 Performed By: #### L [id number] #### [facility] [address] [place], [address] GFR/1.73 sq M.predicted among non-blacks MDRD (S/P/Bld) [Vol rate/Area] 69 mL/min/{1.73_m2} Normal >60 [facility] Comment on above: Order Comment: 'TROP ' Serial specimen #1, #2 or #3: 2 Result Comment: Non- GFR Calc Performed By: #### L [id number] #### [facility] [address] [place], [address] Globulin (S) [Mass/Vol] 3.9 g/dL Normal 2.2-4.2 [facility] Comment on above: Order Comment: 'TROP ' Serial specimen #1, #2 or #3: 2 Performed By: #### L [id number] #### [facility] [address] [place], [address] Glucose [Mass/Vol] 109 mg/dL High 74-106 [facility] Comment on above: Order Comment: 'TROP ' Serial specimen #1, #2 or #3: 2 Result Comment: Fast ing Glucose result from 100 to 125 mg/dL suggests IMPAIRED HOMEOSTASIS per A.D.A. criteria. Performed By: #### L [id number] #### [facility] [address] [place], [address] Potassium [Moles/Vol] 4.1 mmol/L Normal 3.5-5.1 [facility] Comment on above: Order Comment: 'TROP ' Serial specimen #1, #2 or #3: 2 Performed By: #### L [id number] #### [facility] [address] [place], [address] Sodium [Moles/Vol] 139 mmol/L Normal 136-145 [facility] Comment on above: Order Comment: 'TROP ' Serial specimen #1, #2 or #3: 2 Performed By: #### L [id number] #### [facility] [address] [place], [address] T PROT 7.7 g/dL Normal 6.4-8.2 [facility] Comment on above: Order Comment: 'TROP ' Serial specimen #1, #2 or #3: 2 Performed By: #### L [id number] #### [facility] [address] [place], [address] Urea nitrogen [Mass/Vol] 16 mg/dL Normal 7-18 [facility] Comment on above: Order Comment: 'TROP ' Serial specimen #1, #2 or #3: 2 Performed By: #### L [id number] #### [facility] [address] [place], [address] Lipid Profileon 04-25-2024 Cholesterol [Mass/Vol] 249 mg/dL High 200 [facility] Comment on above: Order Comment: 'TROP ' Serial specimen #1, #2 or #3: 2 Result Comment: <200 mg/dL Desirable 200-240 mg/dL Borderline >240 mg/dL High Risk Performed By: #### L [id number] #### [facility] [address] [place], [address] Cholesterol in HDL [Mass/Vol] 90 mg/dL Normal [facility] Comment on above: Order Comment: 'TROP ' Serial specimen #1, #2 or #3: 2 Result Comment: The drugs N-Acetylcysteine and Metamizole may falsely depress this assay. Reference Range HDL <40 mg/dL Low HDL Cholesterol HDL >or= 60 mg/dL High HDL Cholesterol Performed By: #### L [id number] #### [facility] [address] [place], [address] Cholesterol in LDL [Mass/Vol] 98 mg/dL Normal 0-130 [facility] Comment on above: Order Comment: 'TROP ' Serial specimen #1, #2 or #3: 2 Performed By: #### L [id number] #### [facility] [address] [place], [address] Cholesterol in VLDL [Mass/Vol] 61 mg/dL High 5-40 [facility] Comment on above: Order Comment: 'TROP ' Serial specimen #1, #2 or #3: 2 Performed By: #### L [id number] #### [facility] [address] [place], [address] Triglyceride [Mass/Vol] 304 mg/dL High [facility] Comment on above: Order Comment: 'TROP ' Serial specimen #1, #2 or #3: 2 Result Comment: The drugs N-Acetylcysteine and Metamizole may falsely depress this assay. Serum Triglycerides Reference Interval Normal <150 mg/dL Borderline high 150 - 199 mg/dL High 200 - 499 mg/dL Very High > or = 500 mg/dL Performed By: #### L [id number] #### [facility] [address] [place], [address] Thyroid Stim Hormone (TSH)on 04-25-2024 TSH 1.150 uIU/mL Normal 0.358-3.74 0 [facility] Comment on above: Order Comment: 'TROP ' Serial specimen #1, #2 or #3: 2 Performed By: #### L [id number] #### [facility] [address] [place], [address] Vitamin D,25 Hydroxyon 04-25 Vitamin D 25-OH 19.5 ng/mL Normal [facility] Comment on above: Order Comment: 'TROP ' Serial specimen #1, #2 or #3: 2 Result Comment: Joleen min D 25(OH) Status Range Deficiency <20 ng/mL (50nmol/L) Insufficiency 20 - 30 ng/mL (50 - 75 nmol/L) Sufficiency 30 - 100 ng/mL (75 - 250 nmol/L) Toxicity >100 ng/mL (>250 nmol/L) Performed By: #### L [id number] #### [facility] [address] [place], [address] Culture, urineOrdered By: Vandana Connelly on 05-06-2023 Bacteria identified Cx Nom (U) Escherichia coli [facility] - Chemistry and C hemistry - challengeon 05-05-2023 Bilirubin Ql (U) Negative [facility] pH (U) 5.0 [pH] [facility] Specific gravity (U) [Rel density] 1.005 [facility] Urobilinogen (U) [Mass/Vol] 0.5678609 mg/dL [facility] - Hematology and Cell countson 05-05-2023 Hemoglobin Ql (U) Large [facility] - Specimen inform ationon 05-05-2023 Clarity (U) Cloudy [facility] Color (U) Dk Yellow [facility] - Urinalysison Nitrite Ql (U) Negative [facility] Protein Ql (U) 3+ [facility] No Panel Informationon 05-05 Urine Leukocytes Positive [facility] Urine Non-Hemolyzed Blood Large [facility] Basophil percentageOrdered B y: Breonna Laura on 04-03-2023 Cholesterol [Mass/Vol] 233 mg/dL <200 [facility] Comment on above: <200 mg/dL Desirable 200-240 mg/dL Borderline >240 mg/dL High Risk Triglyceride [Mass/Vol] 134 mg/dL <199 [facility] Comment on above: The drugs N-Acetylcy steine and Metamizole may falsely depress this assay.Serum Triglycerides Reference Interval Normal <150 mg/dL Borderline high 150 - 199 mg/dL High 200 - 499 mg/dL Very High > or = 500 mg/dL No Panel InformationOrdered By: Breonna Sanchez on 04-03-2023 Thyroid Stimulating Hormone (TSH) 1.74 uIU/mL 0.358-3.74 [facility] Serum or plasma cholesterol in HDL measurement (mass/volume)Ordered By: Breonna Sanchez on 04-03-2023 Cholesterol in HDL [Mass/Vol] 84 mg/dL >40 [facility] Comment on above: The drugs N-Acetylcy steine and Metamizole may falsely depress this assay. Reference Range HDL <40 mg/dL Low HDL Cholesterol HDL >or= 60 mg/dL High HDL Cholesterol Serum or plasma cholesterol in VLDL measurement (mass/volume)Ordered By: Breonna Sanchez on 04-03-2023 Cholesterol in VLDL [Mass/Vol] 27 mg/dL 5-40 [facility] Serum or plasma low density lipoprotein (LDL) cholesterol measurement (mass/volume)Ordered By: Breonna Sanchez on 04-03-2023 Cholesterol in LDL [Mass/Vol] 122 mg/dL 0-130 [facility] CNTHERAPYon 03-29-2023 CNTHERAPY OT/PT/Speech Visit ( SPTBR) JENNIFER ZULETA ([id number]) 1955 F NFR Date Time Provider Department 03/29/23 1:00 PM ALMA ROSA RIVERA SPTBR Date Time Provider Department [place] 03/29/2023 1:00 PM [id number], WENDY SPTBR KUSUM GAYLE Reason for Visit: PT Progress Note [1596] PT Discharge [752] Primary Visit Diagnosis: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 [G51.8] Other Visit Diagnosis:Facial weakness [R29.810] Allergies As of Date: 03/29/2023 Noted Allergy Reaction PENICILLINS 05/18/2006 Comments: respiratory Date Reviewed: 12/19/2022 Reviewed by: Frannie Muller OCCA - Fully Assessed Prescriptions as of [...] then one pill x 4 days - oxyCODONE-acetaminophen (PERCOCET) 5-325 mg tablet Take 1-2 tablets by mouth every 4 hours as needed. - Ibuprofen-diphenhydrAMINE 200-38 mg tab Take by mouth as needed. - VITAMIN B COMPLEX ORAL Take by mouth. Normal [facility] CNOVon 12-19-2022 CNOV Office Visit (NEMOWS ) JENNIFER ZULETA ([id number]) 1955 F R Date Time Provider Department 12/19/22 11:00 AM ZABRINA ROJAS During your visit today, we recorded the following information about you: Pulse Respiration Blood pressure Weight 82/minute 16/minute 128/88 74.6 kg Zabrina Rojas PA-C 12/21/2022 8:10 AM Signed [facility] Name: Jennifer Zuleta Age: [age] year old Gender: female Primary [...] will recover. 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 Normal [facility] ALLIED HEALTHon 12-14-2022 ALLIED HEALTH HNO ID: [id number] Author: RT Adriana(R) Service: Radiology Author Type: Technologist Type: Allied Health Filed: 12/14/2022 4:22 PM Note Text: Radiology Service Progress Note PATIENT NAME: Jennifer Zuleta DATE OF SERVICE: December 14, 2022 TIME: [...] RT Adriana(R) December 14, 2022 4:21 PM [facility] MRI 3D POST PROCESSINGon MRI 3D POST PROCESSING * * *Final Report* * * DATE OF EXAM: Dec 14 2022 4:24PM [facility] 0280 - MRI 3D POST [...] Prior intracranial hemorrhage: Parenchymal microhemorrhages: 0 Other (siderosis/macrohemorrhages (>10mm): Not Applicable Amyloid Related Imaging Abnormalities: [...] = Focal Lesions 2 = Beginning of [place] 3 = Diffuse Involvement of Entire Region [...] results from the analysis charts for details. Hand Umbrella Tipper: BOLA Transcribe Date/Time: Dec 14 2022 10:08P Dictated by : CINDY BARRAZA DO This examination was interpreted and the report reviewed and electronically signed by: CINDY BARRAZA DO on Dec 14 2022 (more content not included)... Normal [facility] MRI BRAIN WO IVCONon 023 MRI [...] Prior intracranial hemorrhage: Parenchymal microhemorrhages: 0 Other (siderosis/macrohemorrhages (>10mm): Not Applicable Amyloid Related Imaging Abnormalities: [...] = Focal Lesions 2 = Beginning of [place] 3 = Diffuse Involvement of Entire Region [...] results from the analysis charts for details. Hand Umbrella Tipper: BOLA Transcribe Date/Time: Dec 14 2022 10:08P Dictated by : CINDY BARRAZA DO This examination was interpreted and the report reviewed and electronically signed by: CINDY BARRAZA DO on Dec 14 2022 10:13PM EST (more content not included)... Normal [facility] CNTHERAPYon 12-12-2022 CNTHERAPY OT/PT/Speech Visit ( SPTBR) JENNIFER ZULETA ([id number]) 1955 F NFR Date Time Provider Department 12/12/22 3:00 PM ALMA ROSA RIVERA SPTBR Date Time Provider Department Center 12/12/2022 3:00 PM [id number], WENDY SPTBR KUSUM GAYLE Reason for Visit: PT Eval [937] Visit Diagnoses: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 [G51.8] [...] then one pill x 4 days - oxyCODONE-acetaminophen (PERCOCET) 5-325 mg tablet Take 1-2 tablets by mouth every 4 hours as needed. - Ibuprofen-diphenhydrAMINE 200-38 mg tab Take by mouth as needed. - VITAMIN B COMPLEX ORAL Take by mouth. Normal [facility] [place] 11-14-2022 CNPN Telephone (CAROL) JENNIFER ZULETA ([id number]) 1955 F NFR Date Time Provider Department [...] Diagnosis:Facial weakness [R29.810] Order(s):CONSULT TO PHYSICAL THERAPY [9032] Order #: [id number]: 1 FUTURE Prescriptions as of 11/14/2022 - [...] then one pill x 4 days - oxyCODONE-acetaminophen (PERCOCET) 5-325 mg tablet Take 1-2 tablets by mouth every 4 hours as needed. - Ibuprofen-diphenhydrAMINE 200-38 mg tab Take by mouth as needed. - VITAMIN B COMPLEX ORAL Take by mouth. 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 Normal [facility] ([place]) Basophil percentageOrdered B y: Ray Sosa on 08-29-2022 Chloride [Moles/Vol] 105 mmol/L 98-107 [facility] Glucose [Mass/Vol] 90 mg/dL 74-106 [facility] Potassium [Moles/Vol] 3.7 mmol/L 3.5-5.1 [facility] Sodium [Moles/Vol] 138 mmol/L 136-145 [facility] WBC (Bld) [#/Vol] 6.3 10*3/uL 4.4-11.0 [facility] Blood erythrocytes count (nu mber/volume)Ordered By: Ray Sosa on 08-29-2022 RBC (Bld) [#/Vol] 3.93 10*6/uL 4.2-5.4 [facility] Blood hemoglobin measurement (mass/volume)Ordered By: Ray Sosa on 08-29-2022 Hemoglobin (Bld) [Mass/Vol] 12.0 g/dL 12.0-15.0 [facility] Blood platelet mean volumeOr dered By: Ray Sosa on 08-29-2022 Platelet mean volume (Bld) [Entitic vol] 9.6 fL 6.2-12.0 [facility] Determination of erythrocyte mean corpuscular volume (MCV)Ordered By: Ray Sosa on 08-29-2022 MCV (RBC) [Entitic vol] 90.3 fL 81-99 [facility] Hematocrit Auto (Bld) [Volum e fraction]Ordered By: Ray Sosa on 08-29-2022 Hematocrit (Bld) [Volume fraction] 35.5 % 37-47 [facility] - Chemistry and C hemistry - challengeOrdered By: Ray Sosa on 08-29-2022 CO2 [Moles/Vol] 24.0 mmol/L 21.0-32.0 [facility] Urea nitrogen/Creatinine [Mass ratio] 22.2 mg/mg 10-20 [facility] - Hematology and Cell countsOrdered By: Ray Sosa on 08-29-2022 Erythrocyte distribution width (RBC) [Entitic vol] 43.3 fL 35.1-43.9 [facility] Erythrocyte distribution width (RBC) [Ratio] 13.1 % 11.6-14.6 [facility] MCH (RBC) [Entitic mass] 30.5 pg 27.0-32.0 [facility] MCHC Auto (RBC) [Mass/Vol]Or dered By: Ray Sosa on 08-29-2022 MCHC (RBC) [Mass/Vol] 33.8 g/dL 32-36 [facility] No Panel InformationOrdered By: Ray Sosa on 08-29-2022 Estimated GFR (MDRD) Amer 132 mL/min >60 [facility] Comment on above: GFR Calc Estimated GFR (MDRD) Non-Af Amer 109 mL/min >60 [facility] Comment on above: Non- GFR Calc Platelets bldOrdered By: Ray Sosa on 08-29-2022 Platelets (Bld) [#/Vol] 257 10*3/uL 150-450 [facility] Serum or plasma calcium ash urement (mass/volume)Ordered By: Ray Sosa on 08-29-2022 Calcium [Mass/Vol] 8.9 mg/dL 8.5-10.1 [facility] Serum or plasma creatinine m easurement (mass/volume)Ordered By: Ray Sosa on 08-29-2022 Creatinine [Mass/Vol] 0.58 mg/dL 0.55-1.02 [facility] Comment on above: The validity of the calculated GFR & GFRAA in patients over 70 years has not been determined. Clinical correlation is essential. Serum or plasma urea nitroge n measurement (mass/volume)Ordered By: Ray Sosa on 08-29-2022 Urea nitrogen [Mass/Vol] 13 mg/dL -18 [facility] Thin prep Papanicolaou smear with manual screeningOrdered By: Ray Sosa on 08-29-2022 Thin prep Papanicolaou smear with manual screening 9 5-15 [facility] Basophil percentageon 2021 Bilirubin [Mass/Vol] 0.80 mg/dL 0.20-1.00 [facility] Work Phone: Comment on above: For patients on eltr ombopag therapy, use of Dimension [place] TBIL is not recommended. Chloride [Moles/Vol] 107 mmol/L 98-107 [facility] Work Phone: [phone] Cholesterol [Mass/Vol] 228 mg/dL <200 [facility] Work Phone: [phone] Comment on above: <200 mg/dL Desirable 200-240 mg/dL Borderline >240 mg/dL High Risk Glucose [Mass/Vol] 100 mg/dL 74-106 [facility] Work Phone: Comment on above: Fasting Glucose resu lt from 100 to 125 mg/dL suggests IMPAIRED HOMEOSTASIS per A.D.A. criteria. Potassium [Moles/Vol] 4.1 mmol/L 3.5-5.1 [facility] Work Phone: [phone] Protein [Mass/Vol] 7.5 g/dL 6.4-8.2 [facility] Work Phone: Sodium [Moles/Vol] 139 mmol/L 136-145 [facility] Work Phone: [phone] Triglyceride [Mass/Vol] 104 mg/dL <199 [facility] Work Phone: Comment on above: The drugs N-Acetylcy steine and Metamizole may falsely depress this assay.Serum Triglycerides Reference Interval Normal <150 mg/dL Borderline high 150 - 199 mg/dL High 200 - 499 mg/dL Very High > or = 500 mg/dL WBC (Bld) [#/Vol] 4.5 10*3/uL 4.4-11.0 [facility] Work Phone: [phone] Blood erythrocytes count (nu mber/volume)on 03-22-2022 RBC (Bld) [#/Vol] 4.33 10*6/uL 4.2-5.4 [facility] Work Phone: [phone] Blood hemoglobin measurement (mass/volume)on 03-22-2022 Hemoglobin (Bld) [Mass/Vol] 13.2 g/dL 12.0-15.0 [facility] Work Phone: [phone] Blood platelet mean volumeon 03-22-2022 Platelet mean volume (Bld) [Entitic vol] 9.4 fL 6.2-12.0 [facility] Work Phone: [phone] Determination of erythrocyte mean corpuscular volume (MCV)on 03-22-2022 MCV (RBC) [Entitic vol] 91.0 fL 81-99 [facility] Work Phone: [phone] Hematocrit Auto (Bld) [Volum e fraction]on 03-22-2022 Hematocrit (Bld) [Volume fraction] 39.4 % 37-47 [facility] Work Phone: [phone] Laboratory - Chemistry and C hemistry - challengeon 03-22-2022 ALP [Catalytic activity/Vol] 60 U/L 45-117 [facility] Work Phone: [phone] ALT [Catalytic activity/Vol] 20 U/L 13-56 [facility] Work Phone: [phone] CO2 [Moles/Vol] 26.0 mmol/L 21.0-32.0 [facility] Work Phone: Cobalamin (Vitamin B12) [Mass/Vol] 375 pg/mL 211-911 [facility] Work Phone: [phone] Free T4 [Mass/Vol] 1.15 ng/dL 0.76-1.46 [facility] Work Phone: [phone] Globulin (S) [Mass/Vol] 3.9 g/dL 2.2-4.2 [facility] Work Phone: [phone] Urea nitrogen/Creatinine [Mass ratio] 21.1 mg/mg 10-20 [facility] Work Phone: [phone] Laboratory - Hematology and Cell countson 03-22-2022 Erythrocyte distribution width (RBC) [Entitic vol] 45.9 fL 35.1-43.9 [facility] Work Phone: [phone] Erythrocyte distribution width (RBC) [Ratio] 13.4 % 11.6-14.6 [facility] Work Phone: MCH (RBC) [Entitic mass] 30.5 pg 27.0-32.0 [facility] Work Phone: [phone] MCHC Auto (RBC) [Mass/Vol]on 03-22-2022 MCHC (RBC) [Mass/Vol] 33.5 g/dL 32-36 [facility] Work Phone: No Panel Informationon 03-22 Estimated GFR (MDRD) Amer 114 mL/min >60 [facility] Work Phone: Comment on above: GFR Calc Estimated GFR (MDRD) Non-Af Amer 94 mL/min >60 [facility] Work Phone: Comment on above: Non- GFR Calc Thyroid Stimulating Hormone (TSH) 1.43 uIU/mL 0.358-3.74 [facility] Work Phone: [phone] Vitamin D 25-Hydroxy 31.4 ng/mL [facility] Work Phone: Comment on above: Vitamin D 25(OH) Sta tus Range Deficiency <20 ng/mL (50nmol/L) Insufficiency 20 - 30 ng/mL (50 - 75 nmol/L) Sufficiency 30 - 100 ng/mL (75 - 250 nmol/L) Toxicity >100 ng/mL (>250 nmol/L) Platelets bldon 03-22-2022 Platelets (Bld) [#/Vol] 241 10*3/uL 150-450 [facility] Work Phone: [phone] Serum or plasma albumin ash urement (mass/volume)on 03-22-2022 Albumin [Mass/Vol] 3.6 g/dL 3.2-5.0 [facility] Work Phone: [phone] Serum or plasma albumin/glob ulin mass ratioon 03-22-2022 Albumin/Globulin [Mass ratio] 0.9 {ratio} 0.9-2.4 [facility] Work Phone: [phone] Serum or plasma calcium ash urement (mass/volume)on 03-22-2022 Calcium [Mass/Vol] 8.6 mg/dL 8.5-10.1 [facility] Work Phone: Serum or plasma cholesterol in HDL measurement (mass/volume)on 03-22-2022 Cholesterol in HDL [Mass/Vol] 88 mg/dL >40 [facility] Work Phone: Comment on above: The drugs N-Acetylcy steine and Metamizole may falsely depress this assay. Reference Range HDL <40 mg/dL Low HDL Cholesterol HDL >or= 60 mg/dL High HDL Cholesterol Serum or plasma cholesterol in VLDL measurement (mass/volume)on 03-22-2022 Cholesterol in VLDL [Mass/Vol] 21 mg/dL 5-40 [facility] Work Phone: [phone] Serum or plasma creatinine m easurement (mass/volume)on 03-22-2022 Creatinine [Mass/Vol] 0.66 mg/dL 0.55-1.02 [facility] Work Phone: Comment on above: The validity of the calculated GFR & GFRAA in patients over 70 years has not been determined. Clinical correlation is essential. Serum or plasma low density lipoprotein (LDL) cholesterol measurement (mass/volume)on 03-22-2022 Cholesterol in LDL [Mass/Vol] 119 mg/dL 0-130 [facility] Work Phone: Serum or plasma urea nitroge n measurement (mass/volume)on 03-22-2022 Urea nitrogen [Mass/Vol] 14 mg/dL 7-18 [facility] Work Phone: [phone] Thin prep Papanicolaou smear with manual screeningon 03-22-2022 Thin prep Papanicolaou smear with manual screening 18 U/L 15-37 [facility] Work Phone: [phone] Thin prep Papanicolaou smear with manual screening 6 5-15 [facility] Work Phone: [phone] Whole blood hemoglobin A1c/t otal hemoglobin ratio (mass fraction)on 03-22-2022 HbA1c (Bld) [Mass fraction] 5.2 % 3.8-5.6 [facility] Work Phone: Comment on above: Normal < 5.7 % Predi abetic 5.7 - 6.4 % Diabetic >or= 6.5 % Please note range changes. Op Noteon 08-25-2021 Op Note PATIENT: JOSE ARMANDO ZULETA ADMISSION DATE: 08/25/2021 SURGERY DATE: 08/25/2021 DATE [...] the radial nerve neurapraxia. [employer] Job ID: [id number] Olivier Ryan MD DOD:08/25/2021 09:58 A ERICA/bay DOT:08/25/2021 10:34 A Job Number: [id number] Document Number: [id number] cc: Olivier Ryan MD [address] [place] [address] Surgical Pathologyon 022 Surgical Pathology [id number] [facility] PATHOLOGY AND LABORATORY MEDICINE [address] [place], [place] [id number] FINAL SURGICAL PATHOLOGY REPORT NAME: JENNIFER ZULETA N [id number] : 1955 66 Y F BILLING NO.: [id number] LOCATION: [address] PROCEDURE 08/25/2021 DATE: SURGEON: OLIVIER [...] characteristics determined by the clinical laboratories of [facility]. They have not been cleared by [...] negativity on decalcified specimens. Professional Performing Location: [place] [address]. DEPARTMENT OF PATHOLOGY AND LABORATORY MEDICINE [place], [place] [address] [email or web address] Normal [facility] Lab Report: PAP I-G HPV Hi R iskon 04-18-2017 GE use only - for [employer] import when terms are not otherwise specified Negative Invalid Interpretation Code Negative [facility] Office Visit: est annualon 0 2017 Documentation of current medications (procedure) Done Invalid Interpretation Code [facility] Fall risk assessment No Invalid Interpretation Code [facility] Hemoglobin presence in stool not done Invalid Interpretation Code [facility] Tobacco smoking status NHIS Never Invalid Interpretation Code [facility] Tobacco use CPHS Never smoker Invalid Interpretation Code [facility] Lab Report: Lipid Profileon 04-06-2017 Cholesterol in HDL mass conc 117 mg/dL Invalid Interpretation Code [facility] Cholesterol in LDL mass conc 93 mg/dL Invalid Interpretation Code 0-130 [facility] Cholesterol mass conc 224 mg/dL High 200 [facility] Lipoprotein.pre-beta mass conc 14 mg/dL Invalid Interpretation Code 5-40 [facility] Triglyceride mass conc 70 mg/dL Invalid Interpretation Code [facility] Lab Report: T4 Free Directon 04-06-2017 T4 free mass conc 1.21 ng/dL Invalid Interpretation Code 0.76-1.46 [facility] Lab Report: Thyroid Stim Fabiola greer (TSH)on 04-06-2017 Thyrotropin Qn 0.42 u[iU]/mL Invalid Interpretation Code 0.358-3.74 [facility] Office Visit: est annualon 0 11-05-2015 General categories [Interpretation] of Cervical or vaginal smear or scraping by Cyto stain Normal Invalid Interpretation Code [facility] Office Visit: est annualon 0 12-04-2014 Breast Mammogram screening Normal Bilateral Invalid Interpretation Code [facility] Vital Signs Date Time Vital Sign Value Performing Clinician Facility 10-08-2024 15:16-0500 Body height 160.02 cm Edel Nickerson MD Work Phone: [facility] 10-08-2024 15:15-0500 Body mass index (BMI) [Ratio] 30.7 kg/m2 Edel Nickerson MD Work Phone: [facility] 10-08-2024 15:15-0500 Body weight 78.69 kg Edel Nickerson MD Work Phone: [facility] 10-08-2024 15:15-0500 Diastolic blood pressure 79 mm[Hg] Edel Nickerson MD Work Phone: [facility] 10-08-2024 15:15-0500 Systolic blood pressure 116 mm[Hg] Edel Nickerson MD Work Phone: [facility] 08-08-2024 14:40-0500 Body mass index (BMI) [Ratio] 30.1 kg/m2 Edel Nickerson MD Work Phone: [facility] 08-08-2024 14:40-0500 Body weight 77.11 kg Edel Nickerson MD Work Phone: [facility] 08-08-2024 14:40-0500 Diastolic blood pressure 84 mm[Hg] Edel Nickerson MD Work Phone: [facility] 08-08-2024 14:40-0500 Systolic blood pressure 136 mm[Hg] Edel Nickerson MD Work Phone: [facility] 06-24-2024 08:28-0500 Body mass index (BMI) [Ratio] 29.7 kg/m2 Edel Nickerson MD Work Phone: [facility] 06-24-2024 08:28-0500 Body weight 76.2 kg Edel Nickerson MD Work Phone: [facility] 06-24-2024 08:28-0500 Diastolic blood pressure 88 mm[Hg] Edel Nickerson MD Work Phone: [facility] 06-24-2024 08:28-0500 Heart rate 79 /min Edel Nickerson MD Work Phone: [facility] 06-24-2024 08:28-0500 Respiratory rate 18 /min Edel Nickerson MD Work Phone: [facility] 06-24-2024 08:28-0500 Systolic blood pressure 129 mm[Hg] Edel Nickerson MD Work Phone: [facility] 06-21-2023 09:16-0500 Diastolic blood pressure 85 mm[Hg] DO Zhang Sabina Work Phone: [facility] 06-21-2023 09:16-0500 Heart rate 69 /min DO Zhang Sabina Work Phone: [facility] 06-21-2023 09:16-0500 Respiratory rate 17 /min DO Zhang Sabina Work Phone: [facility] 06-21-2023 09:16-0500 SaO2% (BldA) [Mass fraction] 94 % DO Zhang Sabina Work Phone: [facility] 06-21-2023 09:16-0500 Systolic blood pressure 133 mm[Hg] DO Zhang Sabina Work Phone: [facility] 05-05-2023 08:35-0400 Body height 160.02 cm DO Zhang Sabina Work Phone: [facility] 05-05-2023 08:35-0400 Body mass index (BMI) [Ratio] 29.5 kg/m2 DO Zhang Sabina Work Phone: [facility] 05-05-2023 08:35-0400 Body temperature 98 [degF] DO Zhang Sabina Work Phone: [facility] 05-05-2023 08:35-0400 Body weight 75.74 kg DO Zhang Sabina Work Phone: [facility] 05-05-2023 08:35-0400 Diastolic blood pressure 77 mm[Hg] DO Zhang Sabina Work Phone: [facility] 05-05-2023 08:35-0400 Heart rate 80 /min DO Zhang Sabian Work Phone: [facility] 05-05-2023 08:35-0400 Systolic blood pressure 119 mm[Hg] DO Zhang Sabina Work Phone: [facility] 04-10-2023 14:35-0400 Body height 160.02 cm DO Zhang Sabina Work Phone: [facility] 04-10-2023 14:35-0400 Body mass index (BMI) [Ratio] 29.1 kg/m2 DO Zhang Sabina Work Phone: [facility] 04-10-2023 14:35-0400 Body weight 74.61 kg DO Zhang Sabina Work Phone: [facility] 04-10-2023 14:35-0400 Diastolic blood pressure 83 mm[Hg] DO Zhang Sabina Work Phone: [facility] 04-10-2023 14:35-0400 Systolic blood pressure 143 mm[Hg] DO Zhang Sabina Work Phone: [facility] 10-16-2022 13:05-0400 Body temperature 97.9 [degF] David Samayoa Jr., MD Work Phone: [facility] 10-16-2022 13:05-0400 Body weight 74.39 kg David Samayoa Jr., MD Work Phone: [facility] 10-16-2022 13:05-0400 Diastolic blood pressure 86 mm[Hg] David Samayoa Jr., MD Work Phone: [facility] 10-16-2022 13:05-0400 Heart rate 75 /min Davdi Samayoa Jr., MD Work Phone: [facility] 10-16-2022 13:05-0400 Respiratory rate 18 /min David Samayoa Jr., MD Work Phone: [facility] 10-16-2022 13:05-0400 Systolic blood pressure 129 mm[Hg] David Samayoa Jr., MD Work Phone: [facility] 08-30-2022 15:04-0500 Diastolic Blood Pressure Non-Invasive 62 1 MARIN SPITTLE DO [facility] 08-30-2022 15:04-0500 Heart rate 65 /min MARIN SPITTLE DO [facility] 08-30-2022 15:04-0500 Systolic Blood Pressure Non-Invasive 120 1 MARIN SPITTLE DO [facility] 08-30-2022 14:44-0500 Diastolic Blood Pressure Non-Invasive 64 1 MARIN SPITTLE DO [facility] 08-30-2022 14:44-0500 Heart rate 64 /min MARIN SPITTLE DO [facility] 08-30-2022 14:44-0500 Systolic Blood Pressure Non-Invasive 121 1 MARIN SPITTLE DO [facility] 08-30-2022 14:23-0500 Diastolic Blood Pressure Non-Invasive 69 1 MARIN SPITTLE DO [facility] 08-30-2022 14:23-0500 Heart rate 67 /min MARIN SPITTLE DO [facility] 08-30-2022 14:23-0500 Respiratory rate 13 /min MARIN SPITTLE DO [facility] 08-30-2022 14:23-0500 Systolic Blood Pressure Non-Invasive 135 1 MARIN SPITTLE DO [facility] 08-30-2022 14:10-0500 Respiratory rate 15 /min MARIN SPITTLE DO [facility] 08-30-2022 13:56-0500 Respiratory rate 15 /min MARIN SPITTLE DO [facility] 08-30-2022 13:40-0500 Body temperature 97.7 [degF] MARIN SPITTLE DO [facility] 08-30-2022 13:35-0500 Respiratory Rate - Anes 14 br/min MARIN SPITTLE DO [facility] 08-30-2022 13:30-0500 Respiratory Rate - Anes 15 br/min MARIN SPITTLE DO [facility] 08-30-2022 13:25-0500 Respiratory Rate - Anes 15 br/min MARIN SPITTLE DO [facility] 08-30-2022 13:15-0500 Body temperature 96.8 [degF] MARIN SPITTLE DO [facility] 08-30-2022 12:45-0500 Body temperature 96.8 [degF] MARIN SPITTLE DO [facility] 08-30-2022 12:10-0500 Heart rate 72 /min MARIN SPITTLE DO [facility] 08-30-2022 11:05-0500 Body height 161 cm MARIN SPITTLE DO [facility] 08-30-2022 11:05-0500 Body temperature 97.34 [degF] MARIN SPITTLE DO [facility] 08-30-2022 11:05-0500 Body weight 70.5 kg MARIN SPITTLE DO [facility] 08-30-2022 11:05-0500 Heart rate 63 /min MARIN SPITTLE DO [facility] 08-27-2022 14:45-0500 Diastolic blood pressure 84 mm[Hg] [facility] 08-27-2022 14:45-0500 Heart rate 66 /min [facility] 08-27-2022 14:45-0500 Respiratory rate 16 /min [facility] 08-27-2022 14:45-0500 SaO2% (BldA) [Mass fraction] 98 % [facility] 08-27-2022 14:45-0500 Systolic blood pressure 138 mm[Hg] [facility] 08-27-2022 14:16-0500 Inhaled oxygen concentration 4 % [facility] 08-27-2022 14:16-0500 Inhaled oxygen flow rate 2 L/min [facility] 08-27-2022 14:06-0500 Body temperature 98 [degF] [facility] 08-27-2022 10:55-0500 Body height 160.02 cm [facility] 08-27-2022 10:55-0500 Body mass index (BMI) [Ratio] 28.5 kg/m2 [facility] 08-27-2022 10:55-0500 Body weight 73.2 kg [facility] 07-03-2022 17:43-0500 Diastolic blood pressure 71 mm[Hg] Dr. Sascha Swift Work Phone: [facility] 07-03-2022 17:43-0500 Heart rate 87 /min Dr. Sascha Swift Work Phone: [facility] 07-03-2022 17:43-0500 Respiratory rate 16 /min Dr. Sascha Swift Work Phone: [facility] 07-03-2022 17:43-0500 SaO2% (BldA) [Mass fraction] 99 % Dr. Sascha Swift Work Phone: [facility] 07-03-2022 17:43-0500 Systolic blood pressure 142 mm[Hg] Dr. Sascha Swift Work Phone: [facility] 07-03-2022 13:37-0500 Body height 160.[address] Sascha Swift Work Phone: [facility] Work Phone: 07-03-2022 13:37-0500 Body mass index (BMI) [Ratio] 29.6 kg/m2 Dr. Sascha Swift Work Phone: [facility] 07-03-2022 13:37-0500 Body temperature 97.7 [degF] Dr. Sascha Swift Work Phone: [facility] 07-03-2022 13:37-0500 Body weight 75.[address] Sascha Swift Work Phone: [facility] 03-21-2022 13:05-0400 Body height 160.[address] Sascha Swift Work Phone: [facility] Work Phone: 03-21-2022 13:05-0400 Body mass index (BMI) [Ratio] 28.3 kg/m2 Dr. Sascha Swift Work Phone: [facility] Work Phone: 03-21-2022 13:05-0400 Body weight 72.[address] Sascha Swift Work Phone: [facility] Work Phone: 03-21-2022 13:05-0400 Diastolic blood pressure 80 mm[Hg] Dr. Sascha Swift Work Phone: [facility] Work Phone: 03-21-2022 13:05-0400 Systolic blood pressure 121 mm[Hg] Dr. Sascha Swift Work Phone: [facility] Work Phone: 2017 12:58-0400 BMI (Body Mass Index) 22.45 kg/m2 Rand Melgar MD [facility] 2017 12:58-0400 Body Temperature 96.5 [degF] Rand Melgar MD [facility] 2017 12:58-0400 Body Temperature 96.49 [degF] Rand Melgar MD [facility] 2017 12:58-0400 BP Diastolic 79 mm[Hg] Rand Melgar MD [facility] 2017 12:58-0400 BP Systolic 123 mm[Hg] Rand Melgar MD [facility] 2017 12:58-0400 Height 162.56 cm Rand Melgar MD [facility] 2017 12:58-0400 Pulse (Heart Rate) 83 /min Rand Melgar MD [facility] 2017 12:58-0400 Respiratory Rate 16 /min Rand Melgar MD [facility] 2017 12:58-0400 Weight 59.33 kg Rand Melgar MD [facility] Encounters Encounter Date Encounter Type Care Provider Facility Start: 03-04-2025 ambulatory Chalon Krishan Facility:[facility] Start: 12-04-2024 End: 12-04-2024 ambulatory Chalon Krishan Facility:[facility] Start: 10-20-2024 End: 10-20-2024 ambulatory Edel Nickerson MD Work Phone: [facility] Work Phone: Start: 10-20-2024 End: 10-20-[address] Edel Nickerson MD -Cat Scan, [facility] Work Phone: Start: 10-20-2024 End: 10-20-2024 ambulatory Edel Nickerson Facility:[facility] Start: 10-08-2024 End: 10-08-2024 ambulatory Edel Nickerson MD Work Phone: [facility] Work Phone: Start: 10-08-2024 End: 10-08-[address] Rand Melgar MD -Laboratory, Specimen Work Phone: Start: 10-08-2024 End: 10-08-[address] Rand Melgar MD -[facility] Work Phone: Start: 10-08-2024 End: 10-08-2024 ambulatory Rand Melgar Facility:[facility] Start: 10-08-2024 End: 10-08-2024 ambulatory Rand Melgar Facility:[facility] Start: 09-24-2024 End: 09-24-[address] Rand Melgar MD -Outpatient Breast Imaging Work Phone: Start: 09-24-2024 End: 09-24-2024 ambulatory Rand Melgar Facility:[facility] Start: 08-08-2024 End: 08-08-[address] Rand Melgar MD -Laboratory, Specimen Work Phone: Start: 08-08-2024 Encounter for gynecological examination (general) (routine) without abnormal findings Rand Melgar [facility] Start: 08-08-2024 End: 08-08-[address] Rand Melgar MD -[facility] Work Phone: Start: 08-08-2024 End: 08-08-[address] Rand Melgar MD [facility] Start: 08-08-2024 End: 08-08-2024 ambulatory Rand Melgar Facility:[facility] Start: 08-08-2024 End: 08-08-2024 ambulatory Rand Melgar Facility:[facility] Start: 08-05-2024 End: 08-05-2024 Patient encounter procedure Piotr Bond [employer] -Radiology, [place] Work Phone: Start: 08-05-2024 End: 08-05-2024 ambulatory Pitor Bond NP Facility:[facility] Start: 07-23-2024 End: 07-23-2024 Patient encounter procedure Sascha John Marie [employer]-C -Laboratory Work Phone: Start: 07-23-2024 End: 07-23-2024 ambulatory Chalon Krishan Facility:[facility] Start: 06-24-2024 End: 06-24-[address] Vesna Hernandez MD -[facility] Work Phone: Start: 06-24-2024 End: 06-24-2024 ambulatory Chalon Krishan Facility:[facility] Start: 06-05-2024 End: 06-05-2024 ambulatory Chalon Krishan Facility:[facility] Start: 05-30-2024 ambulatory Tyler Gupta Facility:[facility] Start: 05-29-2024 End: 05-30-2024 ambulatory Danni So Facility:[facility] Start: 05-29-2024 End: 05-29-2024 ambulatory Chalon Krishan Facility:[facility] Start: 04-25-2024 End: 04-25-2024 ambulatory Chalon Krishna Facility:[facility] Start: 06-26-2023 Non-patient / Non-visit DO Elfego Muhammad Work Phone: [facility] Start: 06-26-2023 End: 06-26-2023 ambulatory DO Zhang Muhammad Work Phone: [facility] Work Phone: Start: 06-26-2023 End: 06-26-2023 Patient encounter procedure DO Zhang Olsonnger Work Phone: [facility]-Breast Imaging - Biopsy/[facility] Work Phone: Start: 06-21-2023 End: 06-21-2023 Patient encounter procedure DO Zhang Olsonnger Work Phone: [facility] Work Phone: Start: 06-15-2023 End: 06-15-2023 ambulatory DO Zhang Jasso Sabina Work Phone: [facility] Work Phone: Start: 06-15-2023 End: 06-15-2023 Patient encounter procedure DO Zhang Olsonnger Work Phone: [facility]-Outpatient Pavilion Ultrasound Work Phone: Start: 06-11-2023 End: 06-11-2023 ambulatory DO Zhang Romero Sabina Work Phone: [facility] Work Phone: Start: 06-11-2023 End: 06-11-2023 Patient encounter procedure DO Zhang Olsonnger Work Phone: [facility]-Outpatient Breast Imaging Work Phone: Start: 05-05-2023 End: 05-05-2023 Patient encounter procedure DO Zhang Olsonnger Work Phone: [facility]-Laboratory, Specimen Work Phone: Start: 05-05-2023 End: 05-05-2023 Patient encounter procedure DO Zhang Olsonnger Work Phone: [facility] Work Phone: Start: 04-10-2023 End: 04-10-2023 Patient encounter procedure DO Zhang Sabina Work Phone: [facility] Work Phone: Start: 04-03-2023 End: 04-03-2023 ambulatory DO Zhangisabel Muhammad Work Phone: [facility] Work Phone: Start: 04-03-2023 End: 04-03-2023 Patient encounter procedure DO Zhang Haileer Work Phone: [facility]-Laboratory, OP Pavilion Start: 03-29-2023 End: 03-29-2023 ambulatory Alma Rosa Rivera PT Work Phone: 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); Facial weakness Start: 12-19-2022 End: 12-19-2022 ambulatory ZABRINA ROJAS Facility:[facility] Start: 12-14-2022 Orders Only Reid Urrutia MD Work Phone: Radiology Comment on above: Cognitive impairment (Primary Dx) Start: 12-12-2022 End: 12-12-2022 ambulatory ZHANG MUHAMMAD Facility:[facility] Start: 11-14-2022 Telephone encounter David Samayoa MD Work Phone: Sleep Comment on above: Orders Start: 10-16-2022 End: 10-16-2022 Patient encounter procedure David Samayoa MD Work Phone: Neurology Comment on above: 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 ) Start: 08-30-2022 End: 08-30-2022 ambulatory ZHANG MUHAMMAD DO Facility:[facility] Start: 08-30-2022 End: 08-30-2022 SAME DAY STAY MARIN DOSS DO [facility] Start: 08-29-2022 End: 08-29-2022 Non-patient / Non-visit DO Zhang Muhammad Work Phone: [facility] Start: 08-29-2022 End: 08-29-2022 Patient encounter procedure DO Zhang Muhammad Work Phone: [facility]-Pulmonary Services/Neurology Start: 08-29-2022 End: 08-29-[address] SOHA MUHAMMAD MD. Facility:[facility] Start: 08-27-2022 End: 08-27-2022 Emergency department patient visit [facility]-Emergency Department Start: 07-03-2022 End: 07-03-2022 Emergency department patient visit Dr. Sascha Swift Work Phone: [facility]-Emergency Department Start: 04-27-2022 End: 04-27-[address] Sascha Swift Work Phone: [facility] Start: 04-11-2022 End: 04-11-[address] Sascha Swift Work Phone: [facility] Work Phone: Start: 04-11-2022 End: 04-11-[address] Sascha Swift Work Phone: [facility]-Cat Scan, [facility] Start: 03-23-2022 End: 03-23-[address] Sascha Swift Work Phone: [facility] Work Phone: Start: 03-23-2022 End: 03-23-[address] Sascha Swift Work Phone: [facility]-Outpatient Bone Densitometry Start: 03-22-2022 End: 03-22-[address] Sascha Swift Work Phone: [facility]-Laboratory, OP Pavilion Start: 03-21-2022 End: 03-21-[address] Sascha Swift Work Phone: [facility] Start: 11-29-2021 End: 11-29-2021 Patient encounter procedure [facility]-Outpatient Breast Imaging Procedures Date Procedure Procedure Detail Performing Clinician Start: 10-20-2024 CT of thorax, abdome n and pelvis with contrast Edel Nickerson MD Work Phone: Start: 09-24-2024 Screening mammography C terell Nickerson MD Work Phone: Start: 08-05-2024 X-ray of chest, PA a nd lateral views Edel Nickerson MD Work Phone: Start: 06-24-2024 Evaluation of diagno stic study results Edel Nickerson MD Work Phone: Start: 06-26-2023 Ultrasonography guid ed biopsy of breast DO Zhang Muhammad Work Phone: Start: 06-15-2023 Ultrasonography of breast DO Zhang Olsonnger Work Phone: Start: 06-11-2023 Screening mammography D O Zhangisabel Muhammad Work Phone: Start: 05-05-2023 Urine culture DO Blanche Muhammad Work Phone: Start: 08-27-2022 Plain x-ray of wrist Start: 08-27-2022 Plain x-ray of wrist Start: 07-03-2022 Radiologic examinati on of knee Dr. Sascha Swift Work Phone: Start: 07-03-2022 CT cervical spine wi thout contrast Dr. Sascha Swift Work Phone: Start: 07-03-2022 CT of head without contrast Dr. Sascha Swift Work Phone: Start: 04-27-[address] Nory Swift Work Phone: Start: 04-27-[address] Sascha Swift Work Phone: Start: 04-11-2022 CT of abdomen and pe lvis without contrast Dr. Sascha Swift Work Phone: Start: 03-23-2022 Dual energy X-ray absorptiometry Dr. Sascha Swift Work Phone: Start: 11-29-2021 Screening mammography Start: 2017 End: 04-18-2017 Mammogram, screening Rand eldridge MD Work Phone: Start: 02-26-2017 Thyroid disorder screening Scr eening for thyroid disorder Rand Melgar MD Start: 05-03-2015 Mammography David choudhary Jr., MD Work Phone: Start: 12-10-2014 Colonoscopy David choudhary Jr., MD Work Phone: Cataract (disorder) MARIN SPITTLE DO Comment on above: BOTH EYES 2021 Excision of bunion MARIN SPITTLE DO Comment on above: BILATERAL 1998 H/O: surgery History of loop electrical excision procedure (LEEP) Dr. Sascha Swift Work Phone: Comment on above: for GRACIELA 3 at [facility] H/O: surgery History of loop electrical excision procedure (LEEP) Dr. Rand Melgar MD Neuroma (disorder) MARIN SPITTLE DO Comment on above: REMOVAL FROM LEFT AR M Plan of Treatment Date Care Activity Detail Author Start: 06-24-2024 Patient referral [facility] Work Phone: Start: 04-06-2023 Influenza vaccination INFLUENZA (#1) [facility] Start: 08-28-2022 COVID-19 VACCINE (5 - Moderna series) COVID-19 VACCINE (5 - Moderna series) [facility] Start: 08-27-2022 Cltx dstl rdl fx/epiphysl sep w/manj when perf TREAT FRACTURE RADIUS/ULNA [facility] Start: 08-27-2022 [facility] Start: 08-06-2022 ADVANCE DIRECTIVE DISCUSSION ADVANCE DIRECTIVE DISCUSSION [facility] Start: 08-06-2022 DEPRESSION ASSESSMENT DEPRESSION ASS ESSMENT [facility] Start: 07-03-2022 Simple repair scalp/neck/ax/genit/melodie nk 2.5cm/< RPR S/N/AX/GEN/TRNK 2.5CM/< [facility] Start: 04-06-2022 Influenza vaccination INFLUENZA (#1) [facility] Start: 11-18-2020 LIPID SCREEN LIPID SCREEN [facility] Start: 12-11-2019 Colonoscopy COLONOSCOPY [facility] Start: 12-11-2019 COLORECTAL CANCER SCREENING COLORECTAL CANCER SCREENING [facility] Start: 2019 BONE DENSITY BONE DENSITY [facility] Start: 2019 PNEUMOCOCCAL: 65+ (1 - PCV) PNEUMOCOCCAL: 65+ (1 - PCV) [facility] Start: 11-18-2018 DIABETES SCREEN DIABETES SCREEN [facility] Start: 2017 End: 2017 Appointment Appointment [facility] Start: 2017 End: 04-18-2017 Mammogram, screening Mammogram, Screening, both breasts [facility] Start: 02-26-2017 End: 04-06-2017 Lipid panel Lipid Panel [facility] Start: 02-26-2017 End: 04-06-2017 TSH + Free T4 TSH + Free T4 [facility] Start: 05-03-2016 Mammography MAMMOGRAM [facility] Start: 2004 SHINGRIX VACCINE (1 of 2) SHINGRIX VACCINE (1 of 2) [facility] Start: 1999 COLOGUARD (FIT-DNA) COLOGUARD (FIT-D NA) [facility] Start: [address] COLONOGRAPHY [facility] Start: 1999 FECAL OCCULT BLOOD FECAL OCCULT BLOO D [facility] Start: 1999 SIGMOIDOSCOPY SIGMOIDOSCOPY [facility] Start: 1973 Urine microalbumin profile DTAP,TDAP,TD (1 - Tdap) [facility] Start: 1972 ANNUAL PCP TEAM SHANKER OUT ARDEN DISEASE VISIT ANNUAL PCP TEAM CHRONIC DISEASE VISIT [facility] Start: 1972 HEPATITIS C SCREENING HEPATITIS C SC RICHARD [facility] Start: 1954 COVID-19 VACCINE (#1) COVID-19 VACCI NE (#1) [facility] CT Abdomen and Pelvi s WO contrast [facility] Work Phone: MG Breast - bilatera l Screening [facility] End: 04-11-2024 Mri brain brain stem w/o contrast material MRI BRAIN WO IVCON Radiology Routine Torres's palsy 1 Occurrences starting 10/16/2022 until 11/15/2023 [facility] Work Phone: Comment on above: 1 Occurrences starti ng 10/16/2022 until 11/15/2023 Patient Education [facility] Work Phone: Patient referral [facility] Work Phone: [place] [facility] [place] [facility] Work Phone: [facility] transvaginal [facility] Work Phone: [facility] Payers Date Payer Category Payer Self-pay [id number] 2019 Medicare [id number] 2019 Medicare MEDICARE MEDICAR E A AND B [id number] 2019-Present [phone] [address] [address] [place] [address] Medicare [id number] 2019 Unknown [id number] 2019 Unknown [place] [id number] 2019-Present [phone] [address] [place] [address] Indemnity [id number] 1955 Unknown [id number] 2.16.840.1.949919.3.579.2.627 Unknown [id number] Unknown [id number] 2.840.1.985560.3.579.2.462 Unknown [id number] 2.840.1.611959.3.579.2.462 Unknown [id number] 2.840.1.298272.3.579.2.462 Unknown [id number] 2.840.1.543287.3.579.2.462 Unknown [id number] 2.840.1.654057.3.579.2.462 Unknown [id number] 2.840.1.348863.3.579.2.462 Unknown [id number] 2.840.1.167272.3.579.2.462 Unknown [id number] 2.840.1.584273.3.579.2.462 Unknown [id number] 2.840.1.155638.3.579.2.462 Unknown [id number] 2.840.1.736019.3.579.2.462 Unknown [id number] 2.840.1.275291.3.579.2.462 Unknown [id number] 2.840.1.470938.3.579.2.462 Unknown [id number] 2.840.1.153001.3.579.2.462 Unknown [id number] 2.840.1.390811.3.579.2.462 Unknown [id number] 2.840.1.311215.3.579.2.462 Unknown [id number] 2.840.1.049913.3.579.2.462 Unknown [id number] 2.840.1.042247.3.579.2.462 Unknown [id number] 2.840.1.284829.3.579.2.462 Social History Date Type Detail Facility [facility] Work Phone: Start: 1955 Sex Assigned At Female [facility] Start: 05-18-2021 End: 06-21-2023 Tobacco smoking status NHIS Unknown if ever smoked [facility] Start: 08-29-2022 End: 08-08-2024 Tobacco smoking status Never smoked tobacco (finding) [facility] Start: 07-19-2011 Tobacco use and exposure Smokeless tobacco non-user [facility] Start: 03-22-2022 End: 12-19-2022 Alcohol intake Current drinker of alcohol (finding) [facility] Start: 09-29-2014 Alcohol [facility] Start: 1955 Sex Assigned At Not on file [facility] Start: 12-12-2022 End: 12-19-2022 History of Social function [facility] Start: 12-12-2022 End: 12-19-2022 Tobacco use panel [facility] National Score (1-100), lower number is lower risk 72 [facility] Start: 10-22-2024 End: 10-29-2024 Sex Female (finding) [facility] Functional Status Date Assessment Result Facility 08-30-2022 Functional Status Up to bathroom [facility] 08-30-2022 Functional Status bilateral knee high [facility] 08-30-2022 Functional Status NPO Status Maintained A [facility] 08-30-2022 Functional Status [facility] Mental Status Date Assessment Result Facility 08-30-2022 Mental Status Orientation Oriented x 4 [facility] 08-30-2022 Mental Status [facility] 08-30-2022 Mental Status [facility] 08-27-2022 Cognitive function Awake;Alert;A ppropriate;Follo ws Commands [facility] Work Phone: Clinical Notes 12-10-2014 to 10-20-2024 Note Date & Type Note Facility 10-20-2024 Radiology Diagnostic study note [facility] Imaging Services [address] [place] [address] CTA Chst, Abd, Pel W and/or WO MR#: [id number] Acct: [id number] Name: JENNIFER ZULETA Rep #: [id number] : 1955 F 69 From: Whitney Stewart MD PCP: Dr. Edel Nickerson MD Status: REG CL I Study:CTA Chst, Abd, Pel W and/or WO Date of Exam: 10/20/24 Exam# [id number] Ordering Dr: Socorro Nickerson MD PROCEDURE: CTA CHST, ABD, PEL W AND/OR WO REASON FOR EXAM: POST OP SOB TECHNIQUE: CTA imaging of the chest with intravenous contrast and 3D reconstructions. CT imaging of the abdomen and pelvis using the same intravenous contrast dose. IV CONTRAST: 100 cc Omnipaque 350 was administered. COMPARISON: None. FINDINGS: CHEST CTA: Hardware: None. Lymph nodes: No mediastinal hilar or axillary lymphadenopathy. Heart: Normal heart size. No pericardial effusion. RV/LV Diameter Ratio: N/A Thoracic Aorta: No thoracic aortic aneurysm or dissection. Pulmonary Vessels: No evidence of acute pulmonary emboli through the major subsegmental branches. Most Proximal Level of Embolus (if embolus present): N/A Lungs and Airways: The lungs are normally expanded and clear. Pleura: No pleural effusion. No pneumothorax. Bones: Bone windows are unremarkable. ABDOMEN / PELVIS: Liver: Homogeneous attenuation. 9 mm posterior right hepatic low-attenuation lesions, likely simple cysts. Gallbladder: No ductal dilation. Common bile duct is within normal limits. Gallbladder is collapsed. Spleen: Unremarkable. Pancreas: Diffuse fatty atrophy. No ductal dilation or suspicious mass. Adrenals: Unremarkable. Kidneys: Normal renal sizes. No hydronephrosis. Bladder: Urinary bladder is unremarkable. Reproductive Organs: No pelvic mass. Bowel: Stomach is unremarkable. No bowel dilation or wall thickening. Moderatecolonic stool. Appendix: Appendix is not visualized. Lymph nodes: No suspicious lymph node enlargement. Vasculature: Major vascular structures are unremarkable. Peritoneum / Retroperitoneum: No ascites. No free air. Bones: Degenerative changes of the spine. CT/CTA Chst, Abd, Pel W and/or WO IMPRESSION: Atherosclerotic calcification, without evidence of dissection, thrombosis or aneurysm. No acute findings in the chest, abdomen and pelvis otherwise. One or more dose reduction techniques were used (e.g., Automated exposure control, adjustment of the mA and/or kV according to patient size, use of iterative reconstruction technique). Reading Location: [facility] CC: Dr. Edel Nickerson MD ~ Hand Umbrella Tipper: Signed [facility] 08-08-2024 Note [facility] Pap Smear Specimen Adequacy August 09, 2024 12:59am Comment . Satisfactory for evaluation. Endocervical and/or squamous metaplasticcells (endocervical component) are present. Comment on above: Satisfactory for juliet luation. Endocervical and/or squamous metaplasticcells (endocervical component) are present. 08-08-2024 Note [facility] Pap Smear Specimen Adequacy August 09, 2024 12:59am Comment . Satisfactory for evaluation. Endocervical and/or squamous metaplasticcells (endocervical component) are present. Comment on above: Satisfactory for juliet luation. Endocervical and/or squamous metaplasticcells (endocervical component) are present. 08-08-2024 Evaluation note Diagnosis Onset Date Resolution [facility] exam for high-risk Medicare patient acute August 08 2:34pm History of loop electrical excision procedure (LEEP) acute August 08 2:34pm Encounter for routine gynecological examination noneactive 2024 2:34pm GRACIELA I (cervical intraepithelial neoplasia I) acute October 08, 2024 2:59pm [facility] Work Phone: 1(306) 790-678311-19-2024 Evaluation note* Diagnosis Onset Date Resolution Status Admit Date Dyspnea on exertion acute Novem 2023 10:49am Pulmonary emboli acute June 24, 2024 10:49am Aortic ectasia, thoracic chronic June 24, 2024 10:49am Elevated blood pressure reading in office without diagnosis of hypertension chronic Novemb er 2023 10:49am Elevated troponin resolved Novembe r 2023 10:49am [facility] exam for high-risk Medicare patient acute August 08 2:34pm History of loop electrical excision procedure (LEEP) acute 2024 2:34pm Encounter for routine gynecological examination noneactive 2024 2:34pm GRACIELA I (cervical intraepithelial neoplasia I) acute Oct 2:59pm [facility] Work Phone: 1(922) 259-451210-25-2024 [facility] Medical Records Department [address] [place], [place] [address] [address] Discharge Summary 05/30/24 1145 MR#: [id number] Acct: [id number] Name: JENNIFER ZULETA Rep #: [id number] : 1955 69 From: Danni So DO PCP: Dr. Edel Nickerson MD Status:ADM IN [facility] Providers Date of Admission: 05/29/24 Date of Discharge: 05/30/24 Primary Care Physician: Edel Nickerson MD Reason For Visit: MULTIPLE PE'S ELEVATED TROPONIN AFTER RECENT Diagnosis Discharge Diagnosis (1) Pulmonary emboli: Status: Acute Code(s): I26.99 - Other pulmonary embolism without acute cor pulmonale Qualifiers: Pulmonary embolism type: multiple subsegmental (without acute cor pulmonale) Qualified Code(s): I26.94 - Multiple subsegmental thrombotic pulmonary emboli without acute cor pulmonale (2) Elevated troponin: Status: Acute Code(s): R79.89 - Other specified abnormal findings of blood chemistry (3) Postoperative complication: Status: Acute Code(s): T81.9XXA - Unspecified complication of procedure, initial encounter Qualifiers: Surgical complication system/body Area: musculoskeletal system Surgical complication type: unspecified Qualified Code(s): M96.89 - Other intraoperative and postprocedural complications and disorders of the musculoskeletal system (4) Overweight (BMI 25.0-29.9): Status: Acute Code(s): E66.3 - Overweight (5) Hypothyroidism: Status: Chronic Code(s): E03.9 - Hypothyroidism, unspecified Qualifiers: Hypothyroidism type: unspecified Qualified Code(s): E03.9 - Hypothyroidism, unspecified Medications at Discharge Home Medications escitalopram oxalate 10 mg tablet (Lexapro) 10 mg PO DAILY 07/20/20 levothyroxine 112 mcg tablet (Synthroid) See Rx Instructions PO DAILY 07/20/20 multivitamin 1 tab PO DAILY 04/10/23 zolpidem 5 mg tablet (Ambien) 5 mg PO QHS PRN insomnia #30 tabs 08/17/23 apixaban 5 mg (74 tabs) tablets in a dose pack (Eliquis DVT-PE Treat 30D Start) See Rx Instructions PO .COMPLEX #74 tabs 05/30/24 Hospital Course Operations None Procedures 2-D Echocardiogram, EKG and - (CTA Chest) Summary of Care Provided Minutes Spent on Discharge: 36 Hospital Course: Patient is a 69-year-old white female who presented to the emergency department at [facility] on 05/29/2020 for due to shortness of breath. Patient had a right shoulder replacement done at [facility] a few weeks ago and reported that over the last few days she has been feeling more short of breath and not quite herself. She states that she really struggles to exert herself and gets more short of breath with that. She was working with her physical therapist who noticed that she was struggling and thought that she should be evaluated for a blood clot. Her primary care physician in the outpatient setting ordered a CTA which was positive for PE and she was sent to the emergency department. CT did not show any evidence of ventricular strain per her report. She had no leg swelling or chest pain and her only real complaint was dyspnea with exertion and increased fatigue. She had been on aspirin 81 mg daily since surgery and has had no previous history of PE or DVT. Vital signs on presentation showed a temperature of 98, heart rate 79, respiratory rate 16, blood pressure was 165/101, and pulse ox was 98% on room air. CBC on presentation was overtly unremarkable. Coags were normal. Chemistry panel was unremarkable. Her initial troponin was 107 a delta of 110. BNP was normal at 13.7. EKG was unremarkable. Due to her troponin elevation she was admitted the floor. She was initially started on subcu Lovenox and then on the a.m. of 05/30/2025 transition to p.o. Eliquis 10 mg p.o. twice daily which she will continue for 7 days then transition to 5 mg p.o. twice daily for 6 months for treatment of provoked DVT. Echocardiogram was done and showed an EF of 65% with no diastolic dysfunction or wall motion abnormalities and mild tricuspid valve insufficiency. With these findings it was felt she could go home on oral anticoagulation. Risks of oral anticoagulation were discussed with the patient to include predominantly increased risk of bleeding. We did discuss the length of treatment should be about 6 months given this was provoked PE. She was advised to not restrict herself in any way specifically but listen to her body. She was told that she would likely have some increased dyspnea with exertion until PE start to resorb. Lower extremity Dopplers were canceled given it does not twisting frame changer at this point in time or in the future. We did an ambulatory pulse ox and patient did not require oxygen at rest or with ambulation. Patient was discharged home with new prescription for Eliquis in stable condition on 05/30/2024. Her blood pressure was noted to be intermittently elevated. We did not add any new medication an (more content not included)...[facility]11-21-2023 Procedure [facility]08-24-2023 NoteHNO ID: [id number] Author: ALMA ROSA RIVERA PT Service: ? Author Type: Physical Therapist Type: Progress Notes Filed: 08/16/2023 09:50 Note Text: 08/16/2023 [facility] PHYSICAL THERAPY [...] improved movement at left frontalis-improvement noted 03/29/2023. [place] in home exercise program-met as instructed 03/29/2023. [...] REPORT PLAN OF CARE UPDATE: Assessment: Jennifer Zuleta demonstrates improvements in left frontalis motion and [...] improved movement at left frontalis-improvement noted 03/29/2023. [place] in home exercise program-met as instructed 03/29/2023. Patient Goals: regain frontalis movement-improving. PLAN FOR NEXT VISIT: pt to cont with indep HEP and f/u as indicated. SUBJECTIVE: . Pt reports decreased headaches, she did notice some stress with prolonged driving. HEP going well, she feels like she is healing. She has returned to tennis and [employer] ball. She has fallen since last in [...] to following Trigger/tender points: left temporalis, left radiology services manager Needle length: 15mm .6 in . [place] used 3, needles removed 3. Dry needling [...] throughout 6: eye br (more content not included)...[facility]08-24-2023 History of Present illness Narrative* Alma Rosa Rivera, PT - 03/29/2023 1:03 PM EDT Episode Visit Count: 2 Therapist That Will Accept/Oversee The Plan Of Care: Alma Rosa Rivera Start of Care Date: 12/12/22 Onset Date: 06/06/22 Plan of Care Certification Date: 12/12/22 Next Certification Due Date: 04/04/23 [facility]HAB[facility]ATION AND SPORTS THERAPY PHYSICAL THERAPY PROGRESS REPORT PLAN OF CARE UPDATE: Assessment: Jennifer Zuleta demonstrates improvements in left frontalis motion and [...] improved movement at left frontalis-improvement noted 03/29/2023. [place] in home exercise program-met as instructed 03/29/2023. [...] to following Trigger/tender points: left temporalis, left radiology services manager Needle length: 15mm .6 in . [place] used 3, needles removed 3. Dry needling technique used: Pistoning and Basic needling. Patient education on purpose, precautions, safety, risks, and other treatment options regardingdry needling. Verbal consent received. Skilled Intervention: Manual skills to improve joint mobility, ROM, and decrease pain. Utilized anatomy knowledge of the therapist, and assessment of patient's response to intervention. Neuromuscular Re-Education: 1: massage (encouraged light pressure to move skin) at temples to frontalis, hairline to eye brows,medial to lateral 2: grasp and stretch at [...] Minutes (timed/untimed): 63 Session Start Time : 101 Session Stop Time : 204 Alma Rosa Rivera PT documented in this encounterDayton [facility]05-[facility]23 NoteHNO ID: [id number] Author: Zabrina Rojas PA-C Service: ? Author Type: Physician Electronic Technician Type: Progress Notes Filed: 12/21/2022 8:10 AM Note Text: [facility] Name: Jennifer Zuleta Age: [age] year old Gender: female Primary [...] will recover. 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 (more content not included)...[facility]05-09-2023 NoteHNO ID: [id number] Author: Alma Rosa Rivera PT Service: ? [...] THERAPY EVALUATION PLAN OF CARE: Assessment: Jennifer Zuleta presents with diagnosis of temporal branch left [...] will demonstrate improved movement at left frontalis. [place] in home exercise program. Patient Goals: regain frontalis movement Planned Interventions, Frequency, and Duration: Current Frequency: 1 visit (in 3 months) Total Number of Visits Planned: 1 Planned Treatment Interventions: Therapeutic exercise (23264), Neuromuscular re-education (08063), Manual therapy (02341), Patient/Family/Caregiver Education PLAN FOR NEXT VISIT: review and progress neuromuscular re-ed as indicated, consider dry needling. Patient demonstrates good understanding of plan of care and treatment. The above goals and plan of care were discussed and agreed upon by patient/family. 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 provider found CHIEF COMPLAINT: L facial weakness Consultation requested by No ref. provider found for an opinion regarding chief complaint of Patient presents with: New Patient and my final recommendations will be communicated back to the requesting physician by way of sharedmedical record or letter via US mail. HISTORY OF PRESENT ILLNESS: Jennifer Zuleta is a 67 year old female, with a PMH significant for thatbelow and falls x2. States first occurred in June and was mechanical fall when toe caught on door jam and pt fell and smashed head on garage floor. The second fall was in August 2022, when slipped on ice with fx of right wrist. Patient states everyone told her to go see a neurologist. Statesthe left eye has not perked back up. [...] HPI. SKIN:Negative for lesions, rash, and itching. HEMATOLOGIC/LYMPHATIC/IMMUNOLOGIC:Negative for prolonged bleeding, bruising easily or swollen [...] 10/16/2022) HISTORIES PAST MEDICAL HISTORY Diagnosis Date GRACIELA III (cervical intraepithelial neoplasia III) 12/2014 s/p [...] papilledema, EOMI and without nystagmus, VFF to confrontation,facial sensation intact BUT noted partial CN7 palsy [...] CT brain reportedly unremarkable except for scalp hematomaper report at OSH. No inability to protect [...] results known. Otherwise follow up in 3 months.Discussed plastics evaluation as well (I will reach out to them for any recs), but focus at this time is confirming dx and therapy. David Samayoa MD I spent a total of 45 minutes on the date of the service which included preparing to see the patient, nror-vg-lpxs patient care, completing clinical documentation, obtaining and/or reviewing separately obtained history, performing a medically appropriate examination, counseling and educating the pat ient/family/caregiver, ordering medications, tests, or procedures, communicating with other HCPs (not separately reported), and communicating results to the patient/family/caregiver. documented in this encounterDayton [facility]03-02-2023 Miscellaneous Notes* Telephone Encounter - Brooklynn Alcala LPN - 10/05/2022 1:27 PM EST Pt has appt with Dr. Samayoa for new patient on October 16 2022. Called and spoke with pt about PCP, referring doctor and why she needs to be see. Pt stated she fell in June and got a concussion. She was seen at [facility] Jul 03. State Zhang Manjarrez is her PCP and pt has been under her care since then. Will get results and visit notes from [facility]. Brooklynn Alcala LPN documented in this encounterDayton Children'[facility]01-25-2023 Hospital Discharge instructions Patient Education 08/30/2022 14:08:23 Nausea and Vomiting, Adult, Otnk-xc-Lhfv Nausea and Vomiting, Adult Nausea is feeling [...] doctor about them. Follow these instructions to carefor yourself at home. Eating and drinking Take an ORS (oral rehydration solution). This is a drink that is sold at pharmacies and stores. Drink clear fluids in small amounts as you are able, such as: ?Water. ?Ice chips. ?Fruit juice that has water added (diluted fruit juice). ?Low-calorie sports drinks. Eat bland, yamq-kz-zzqcwf foods in small amounts as you are able, such as: ?Bananas. ?Applesauce. ?Rice. ?Low-fat (lean) meats. ?Juniata. ?Crackers. Avoid drinking fluids that have a lot of sugar or caffeine in them. This includes energy drinks, sports drinks, and soda. Avoid alcohol. Avoid spicy or fatty foods. General instructions Take wabw-rfn-sjuhdpi and prescription medicines only as told by your doctor. Drink enough fluid to keep your pee (urine) pale yellow. Wash your hands often with soap and water. If you cannot use soap and water, use hand industrial safety and health specialist. Make sure that all people in [...] too much water in your body. Take omkx-eed-prtstag and prescription medicines only as told by [...] 01/08/2009 Document Revised: 11/14/2019 Document Reviewed: 12/31/2018 [employer] Patient Education 2020 [employer]. 08/30/2022 14:06:54 How to Use an Incentive [...] as possible. If the spirometer includes a excellence coach indicator, use this to guide you in breathing. Slow down your breathing if the indicator goes above the marked areas. 7.Remove the mouthpiece from your mouth and breathe out normally. The piston or ball will return tothe bottom of the chamber. 8.Rest for a [...] 12/03/2007 Document Revised: 08/15/2018 Document Reviewed: 06/05/2018 [employer] Patient Education 2020 [employer]. 08/30/2022 14:06:29 Radial Fracture Radial Fracture A [...] most common type of broken arm. A fracturecan also occur near the elbow (radial head [...] health care provider will need to align thebone pieces. After alignment, you will need to [...] your health care provider approves. Ask your healthcare provider if you may take showers. You [...] applicable. This may take several hours. Take xzvy-frg-keybqhb and prescription medicines only as told by [...] 01/03/2007 Document Revised: 07/17/2018 Document Reviewed: 07/17/2018 [employer] Patient Education 2020 [employer] 08/30/2022 14:06:14 Monitored Anesthesia Care, Care After Monitored Anesthesia Care, Care After These instructions provide you with information about caring for yourself after your procedure. Your health care provider may also give you more specific instructions. Your treatment has been plannedaccording to current medical practices, but problems sometimes [...] have someone help care for you until youare awake and alert. Rest as needed. Do [...] before eating solid foods. General instructions Take ouwr-xoe-txpasrd and prescription medicines only as told by [...] 11/12/2016 Document Revised: 10/21/2018 Document Reviewed: 11/12/2016 [employer] Patient Education 2020 [employer]. 08/30/2022 14:06:06 AH - Post Axillary Block [...] If after hours, please call [facility] at and ask for the anesthesia department. Follow Up Care 08/29/2022 09:30:59 With:MARIN DOSS DO, Orthopedic Address: [address] [place] [phone] When: Unknown Comments:CALL DR DIAZ OFFICE FOR A FOLLOW UP APPOINTMENT. CALL DR DOSS WITH ANY QUESTIONS OR CONCERNS. GO TO THE EMERGENCY ROOM WITH ANY URGENT CONCERNS. [facility] 01-25-2023 Summary of episode note Discharge Instructions Thank you for allowing [facility] to assist you with your healthcare needs. The following is importantdischarge information regarding your hospital visit. Your Care [...] EMERGENCY ROOM WITH ANY URGENT CONCERNS. Where: [address] [place] [phone] Allergies penicillin (Anaphylactoid reaction) Medications Please ask your primary doctor or pharmacist before taking any other medication not listed, including over the counter drugs, herbal medications, vitamins and or supplements as they may interact withyour home medications. What How Much When Instructions [...] and suzan droe KOE done) Hycet, Lorcet, [place], Verdrocet, Vicodin, Xodol, Zamicet What is the [...] where to locate a drug take-back disposal program.If there is no take-back program, flush the unused medicine down the toilet. What happens if I miss a dose? Since this medicine is used for pain, you are not likely to miss a dose. Skip any missed dose if itis almost time for your next dose. Do [...] health department. Make sure any person caring foryou knows where you keep naloxone and how to use it. What should I avoid while taking acetaminophen and hydrocodone? Avoid driving or operating machinery until you know how this medicine will affect you. Dizziness ordrowsiness can cause falls, accidents, or severe injuries. [...] if you have slow breathing with long pauses,blue colored lips, or if you are hard to wake up. In rare cases, acetaminophen may cause a severe skin reaction that can be fatal. This could occur even if you have taken acetaminophen in the past and had no reaction. Stop taking this medicine and call your doctor right away if you have skin redness or a rash that spreads and causes blistering andpeeling. Call your doctor at once if you [...] may report side effects to FDA at 9-914-FEK-9035. What other drugs will affect acetaminophen and [...] affect acetaminophen and hydrocodone, including prescription and fwiq-ras-clpqgsp medicines, vitamins, and herbal products. Not all [...] to ensure that the information provided by [employer]. ('[employer]') is accurate, up-to-date, and complete, but no guarantee is made to that effect. Drug information contained herein may be time sensitive. [employer] information has been compiled for use by healthcare practitioners and consumers in the [place] and therefore [employer] does not warrant that uses outside of the [place] are appropriate, unless specifically indicated otherwise. [employer] drug information does not endorse drugs, diagnose patients or recommend therapy. [employer] drug information isan informational resource designed to assist licensed healthcare practitioners in caring for their p [facility] and/or to serve consumers viewing this service as a supplement to, and not a substitute for, the expertise, skill, knowledge and judgment of healthcare practitioners. The absence of a warningfor a given drug or drug combination in no way should be construed to indicate that the drug or drug combination is safe, effective or appropriate for any given patient. [employer] does not assume any responsibility for any aspect of healthcare administered with the aid of information [employer] provides. The information contained herein is not intended to cover all possible uses, directions, precautions, warnings, drug interactions, allergic reactions, or adverse effects. If you have questions about the drugs you are taking, check with your doctor, nurse or pharmacist. Copyright 2427-9433 [employer]. Version: 16.03. Revision Date: 09/07/2020. Education Materials [...] doctor about them. Follow these instructions to carefor yourself at home. Eating and drinking Take an ORS (oral rehydration solution). This is a drink that is sold at pharmacies and stores. Drink clear fluids in small amounts as you are able, such as: ? Water. ? Ice chips. ? Fruit juice that has water added (diluted fruit juice). ? Low-calorie sports drinks. Eat bland, pxok-gn-tipnae foods in small amounts as you are able, such as: ? Bananas. ? Applesauce. ? Rice. ? Low-fat (lean) meats. ? Juniata. ? Crackers. Avoid drinking fluids that have a lot of sugar or caffeine in them. This includes energy drinks, sports drinks, and soda. Avoid alcohol. Avoid spicy or fatty foods. General instructions Take dtfm-yha-xcjbymu and prescription medicines only as told by your doctor. Drink enough fluid to keep your pee (urine) pale yellow. Wash your hands often with soap and water. If you cannot use soap and water, use hand industrial safety and health specialist. Make sure that all people in [...] too much water in your body. Take izhb-who-eeatsfu and prescription medicines only as told by [...] 01/08/2009 Document Revised: 11/14/2019 Document Reviewed: 12/31/2018 [employer] Patient Education 2020 [employer] How To Use an Incentive Spirometer [...] as possible. If the spirometer includes a excellence coach indicator, use this to guide you [...] the highest number you have reached (best effort),use this as a goal to work toward [...] 12/03/2007 Document Revised: 08/15/2018 Document Reviewed: 06/05/2018 [employer] Patient Education 2020 [employer] Radial Fracture A radial fracture is a break in the radius bone. The radius is a bone in the forearm, on the same side as the thumb. The forearm is the part of the arm that is between the elbow and the wrist. A radial fracture near the wrist (distal radialfracture) is the most common type of broken arm. A fracturecan also occur near the elbow (radial head [...] health care provider will need to align thebone pieces. After alignment, you will need to wear a splint or cast for up to 6 weeks. To align your broken bone, your health care provider may: ? Move the bones back into position without surgery (closed reduction). ? Perform surgery to align the fracture and fix the bone pieces into place with metal screws, plates,or wires (open reduction and internal fixation, ORIF). [...] your health care provider approves. Ask your healthcare provider if you may take showers. You [...] applicable. This may take several hours. Take dszo-scd-abprrbw and prescription medicines only as told by [...] 01/03/2007 Document Revised: 07/17/2018 Document Reviewed: 07/17/2018 [employer] Patient Education 2020 [employer] Monitored Anesthesia Care, Care After These instructions provide you with information about caring for yourself after your procedure. Your health care provider may also give you more specific instructions. Your treatment has been plannedaccording to current medical practices, but problems sometimes [...] have someone help care for you until youare awake and alert. Rest as needed. Do [...] before eating solid foods. General instructions Take mzrz-xrm-pplqbbz and prescription medicines only as told by [...] 11/12/2016 Document Revised: 10/21/2018 Document Reviewed: 11/12/2016 [employer] Patient Education 2020 [employer] POST AXILLARY BLOCK The purpose of [...] If after hours, please call [facility] at and ask for the anesthesia department. Additional Information VACCINATE! IT SAVES LIVES! Members of the community who have not yet received the COVID-19 vaccine and would like to receive it can visit one of [facility] vaccine clinics. There are many vaccine clinic locations within the [facility]. For locations and available times, please visit [email or web address] It is important to note that some COVID mobile vaccine clinics are held outdoors and may be canceled in rainy or stormy conditions. To learn more about pediatric vaccinations (ages 5-11), we invite you to visit the [facility] webpage. [email or web address] [email or web address] learn more about the COVID-19 vaccine, we invite you to visit the [facility] website for a list of frequently asked questions. [email or web address] [email or web address] [facility] Patient Portal Access Instructions: Stay connected with your healthcare team and access your personal medical information anytime with the [facility] Patient Portal.If you would like a full copy of your medical records, please contact the [facility] Medical Records Department, Sunday through Sunday between 8a.m. and 4:30p.m. Please follow the directions below to access the portal: 1.Access the email account you provided upon registration to the [facility].2.Look for an invitation email from [facility].3.Open the email and access the invitation link: Accept Invitation to [facility]4.Fill in the required ferreira to create your account. Sign into [email or web address] with your username and password that you [...] you will allow to register on the [facility] Patient Portal for access to your information. You can also access the [facility] Patient Portal on the [employer] jose. Simply click on Health Records under [employer] and then click on the Epi logo. HOW TO SAFELY DISPOSE OF PRESCRIPTION MEDICATIONS Please use one of the following methods to safely dispose of your unused medications. 1.Use a drug disposal kit: the drug disposal pouch allows you to safely discard your old and unuseddrugs. Ask your nurse to give you one when you are discharged.2.Visit a local take-back location: Many local pharmacies and police departments have programs that collect old and unwanted prescriptiondrugs. Call your local pharmacy or go to [email or web address] Rings/9J7Zf8f to find one close to you.3.Make use of household items: Use cat litter or old coffee grounds to dispose medications if other options arenot available. Mix your drugs with these household products, seal them in an airtight container andthrow it into the garbage. Call [facility]: [phone] to be sure your drugs can be [...] Patient Education Materials Nausea and Vomiting, Adult, Dfwh-xh-Nnbf How to Use an Incentive Spirometer Radial Fracture Monitored Anesthesia Care, Care After AH - Post Axillary Block Instructions(CUSTOM) Medication Leaflets acetaminophen-hydrocodone 300 mg-5 mg oral tablet My discharge plan and instructions have been reviewed and explained to me and I,SYLVIAJENNIFER PALOMO understand my current condition and have read and understand these discharge instructions. I have received a written copy of the plan/instructions. If I have questions, I am aware that I should contact my doctor. Patient/Chocolatier Signature: Date/Time: Relationship to Patient: Witness Name/Signature: Date/Time: [facility]01-25-2023 Anesthesiology Consult note Patient: JENNIFER ZULETA Age: 67 years Sex: Female : 1955 Associated Diagnoses: None Author: BALTAZAR RONDON REALTY SPECIALIST-ASSISTANT GOLF COACH Assessment Postanesthesia assessment Vitals: Vital signs from [...] status: within normal limits. Digitally Signed by BALTAZAR RONDON on 08/30/2022 01:46 PM [facility]01-25-2023 Note ORIGINAL Images acquired, not reported on this accession number. [facility]01-25-2023 Note ORIGINAL Images acquired, not reported on this accession number.[facility]01-25-2023 Anesthesiology Consult note Patient: JENNIFER ZULETA Age: 67 years Sex: Female : 1955 Associated Diagnoses: None Author: BALTAZAR RONDON Preoperative Information Time of last food [...] Mother Colon cancer Father Procedure history: Bunionectomy ([id number]). Comments: 08/30/2022 11:02 Jw Dubois RN BILATERAL 1998 Neuroma ([id number]). Comments: 08/30/2022 11:03 Jw Dubois RN REMOVAL FROM LEFT ARM Cataract ([id number]). Comments: 08/30/2022 11:04 Jw Dubois RN BOTH [...] Signs(last 24 hrs) Last Charted Heart Rate Ogujjrdmo03 bpm (AUG 30 12:40) Resp Rate 14 br/min (AUG 30 12:10) LCV064 mmHg (AUG 30 12:35) DBP69 mmHg (AUG 30 12:35) Measurements from flowsheet : Measurements 08/30/2022 11:05 EST Height 161 cm Height in inches 63.4 inch(es) Admission Weight 70.5 kg Weight Lbs 155.1 lb [place] Body Weight 53.29 kg Admission Body Mass Index 27.2 m2 08/29/2022 10:30 EST Height 161 cm Admission Weight 70.5 kg Weight Method Stated [place] Body Weight 53.29 kg Pain assessment: Pain [...] Attendee SN - CAt - Role Performed Visual Basic .Net Developer 08/30/2022 12:42 EST SN - CTm - [...] Nerve Block Provider #1 Bedside Time Out BALTAZAR RONDON APRN-ASSISTANT GOLF COACH Provider #2 Bedside Time Out Hanna Cooper [...] - Abnormality Type SCAB 08/30/2022 12:06 EST [place] History and Physical History and Physical Update [...] - DRS - Immobilization Devices SPLINT FIBERGLASS [id number] 1RL/EA [id number] 08/30/2022 12:01 EST SN - [...] Attendee SN - CAt - Role Performed ASSISTANT GOLF COACH SN - CAt - Role Performed Cage Supervisor 1 SN - CAt - Role Performed Scrub 1 SN - CAt - Role Performed Instructor Kindergarten 1 SN - CAt - Role Performed [...] Weight 70.5 kg Weight Lbs 155.1 lb [place] Body Weight 53.29 kg Admission Body Mass [...] ethnicity Skin Integrity Intact Mucous Membrane Color Hundred IV Present Present Characteristics of Speech Clear [...] x 4 Safety Brochure Information Reviewed Yes [facility] [place] Video Viewed No Teaching Evaluation Verbalizes/Nonverbally [...] EST Designated Person #1 We May Share PHI BACILIO DOUGLASS [phone] Designated Person #1 Relationship Daughter Height 161 cm Admission Weight 70.5 kg Weight Method Stated [place] Body Weight 53.29 kg Status No, per patient Sleep Apnea Pressure No Sleep Apnea BMI No Sleep Apnea Age Yes Sleep Apnea Neck No Sleep Apnea Gender No Advanced Directives Yes Advance Directive Type [place] Durable Power of Brokerage Manager for [facility] [place], [place] Declaration (Living Will) Advance Directive Location [...] evident Teaching Method Explanation Preferred Written Language Sammarinese Preferred Spoken Language Sammarinese Pre Procedure/Surgery Education Appropriate expectations, Date/Time of procedure/surgery, Hospital gown requirement worn to OR, Leave valuables, jewelry, wedding ring at home, NPO, Responsible driverfor discharge Procedure/Surgical Teaching Evaluation Verbalizes/Nonverbally indicates understanding [...] Note-Nursing Date\Time Correction . Assessment and Plan [place] Society of Anesthesiologists (ASA) physical status classification: Class II. Anesthetic Preoperative Plan Anesthetic technique: General. Postoperative pain management: axillary block. Informed consent: signed by patient. Digitally Signed by BALTAZAR RONDON on 08/30/2022 12:53 PM [facility]01-25-2023 Note Date of Service 08/30/22 History and Physical Update I have examined the patient; reviewed the History and Physical and there are no changes to the History and Physical unless noted below. Digitally Signed by MARIN DOSS DO on 08/30/2022 12:06 PM [facility]01-22-[address] Nielsen [facility] August 27, 2022 3:31pm Note Date/Time August 27, 2022 1 1:08am [facility] Medical Records Department [address] [place] [id number] Emergency Department Summary 08/27/22 MR#: [id number] Acct: [id number] Name: JENNIFER ZULETA Rep #:[id number] : 1955 67 From: Hollis Nielsen DO PCP: Zhang Muhammad DO Status:REG E R Location: ED HPI History of Present Illness Chief Complaint: Upper Extremity Injury Narrative Narrative: 67-year-old female presenting with right wrist pain. She states she has slip and fall outside on a bit of ice. She fell forward onto outstretched hands. She complains of wrist pain in the right lateral wrist on the dorsal surface. She does not have any hand pain. No numbness or tingling. She did not hit her head or lose consciousness. [facility] Medical History Bunion GERD (gastroesophageal reflux disease) Home Medications escitalopram oxalate 10 mg tablet (Lexapro) 10 mg PO DAILY 07/20/20 [History Last Taken Unknown] levothyroxine 112 mcg tablet (Synthroid) See Rx Instructions PO DAILY 07/20/20 [History Last Taken Unknown] zolpidem 5 mg tablet (Ambien) 5 mg PO QHS PRN insomnia #30 tabs 05/05/22 [Rx Last Taken Unknown] hydrocodone-acetaminophen 5-325mg 5mg-325mg 1 tab PO Q6H PRN pain 3 days #12 tabs 08/27/22 [Rx Last Taken Unknown] Allergy/AdvReac Type Severity Reaction Status Date / Time Penicillins [PCN] Allergy Anaphylaxis Verified 08/27/22 10:55 Family History Father Colon cancer, Onset Age: 80 Surgical History History of bunionectomy History of cataract extraction History of colonoscopy (~06/2020) History of esophagogastroduodenoscopy (EGD) (~06/2020) History of surgery on arm S/P LEEP Social History number of children: 2 current occupational status: employed current occupation: [email or web address] Smoking Status: Never smoker alcohol intake: current alcohol intake frequency: 3 or more drinks per day substance use type: does not use diet: vegetarian seatbelt use: always do you feel safe at home: Yes ROS ROS ED Constitutional Constitutional ED: Denies chills, fever(s) or sweats Eyes Eyes: Denies blurry vision or change in vision ENT ENT ED: Denies ear pain or sore throat Cardiovascular Cardiovascular: Denies chest pain, palpitations or racing heartbeat Respiratory/Chest Respiratory/Chest: Denies cough, dyspnea or sputum Gastrointestinal Gastrointestinal: Denies abdominal pain, constipation, diarrhea, nausea or vomiting Genitourinary Genitourinary ED: Denies dysuria, hematuria or urinary frequency Musculoskeletal Musculoskeletal: Reports other Details: Right wrist pain ; Denies myalgias or neck pain Integumentary Denies abscess, Abrasions or rash Neurologic Neurologic: Denies headache(s), paresthesias or weakness Psychiatric Psychiatric: Denies anxiety, depression, suicidal ideation or suicidal thoughts Endocrine Endocrinology: Denies polydipsia or polyuria EXAM Physical Exam Const Vital Signs: 08/27/22 10:55 Temperature 98 F Temperature Source Temporal Pulse Rate 71 Respiratory Rate 14 Blood Pressure 111/70 Blood Pressure Mean 83 Pulse Ox 97 Oxygen Delivery Method Room Air Positive well nourished General Appearance ED: NAD HEENT Reports moist mucous membranes normocephalic Eyes PERRL and EOMs intact bilaterally Resp normal respiratory effort and clear to auscultation bilaterally Cardio regular rate and regular rhythm GI non-tender Extremity Extremity Narrative: Tenderness to palpation of the right lateral wrist on the dorsal surface. Does not appear to be a tender in the anatomical snuffbox however. There are some swelling/edema and bruising noted over the dorsal surface in this area. Right hand is nontender to palpation. Right hand neurovascular intact brisk cap refill to all 5 fingers. Neuro oriented x3, CN's II-XII intact bilaterally and moves all extremities Sensorium / Orientation: alert Motor Exam: strength 5/5 throughout Psych mental status grossly normal MDM MDM MDM Narrative Medical decision making narrative: Patient presenting with right wrist pain. There is some swelling and bruising of the right radial region. No other pain is palpated. This concerning for either a sprain or fracture. I suspect that it is broken. Patient had an IV established in the left arm. Medicated with morphine and Zofran. X-rays were obtained and on my interpretation shows an impacted mildly angulated distal radius fracture. Patient was consented for conscious sedation with propofol and closed reduction. Patient was discussed with Dr. Galindo who recommended a sugar-tong splint. Patient hbuygt0j with a total of 100 cc propofol given in 20 cc doses to maintain anesthesia. A well padded, hand fabricated sugar tong splint was applied to the right wrist. Patient tolerated procedue well. Postreduction x-rays interpreted by myself show there is some improvement although patient will need orthopedic follow-up. Orthopedic states that they could see her tomorrow. Patient given a prescription for [place] for pain. Recommended to keep the wrist elevated. She is neurovascular intact after splint was applied. Patient discharged home in stable condition. Impression: 1. Mechanical fall 2. Right distal radius fracture Lab Data Attestation: I reviewed the patient's lab results. Discharge Plan Triage Chief Complaint: Upper Extremity Injury ED Provider: Hollis Nielsen Dx/Rx/DC Orders Instructions: ED Fracture, Wrist, General Prescriptions: New hydrocodone-acetaminophen 5-325 mg tablet 1 tab PO Q6H PRN (Reason: pain) 3 Days Qty: 12 0RF No Action levothyroxine [Synthroid] 112 mcg tablet See Rx Instructions PO DAILY Rx Instructions: 75 mcg PO daily; escitalopram oxalate [Lexapro] 10 mg tablet 10 mg PO DAILY zolpidem [Ambien] 5 mg tablet 5 mg PO QHS PRN (Reason: insomnia) Qty: 30 3RF Primary Care Provider: Zhang Muhammad Referrals: Baltazar Gee DO [Med Staff - Active Staff] - 1 Day Zhang Muhammad DO [Primary Care Provider] - Disposition Disposition: Home, Self Care What to do if you have Problems For any increased pain, shortness of breath, bleeding, nausea or vomiting, chestpain, or any unexpected problems, contact your Primary Care Provider. Call [facility] ([phone]) or report to the closest Emergency Room. Call 911 if necessary. 08/27/22 0168 <Electronically signed by Hollis Nielsen DO> Cosigner Signature (if applicable): CC: Zhang Muhammad DO ~ Signed [facility] Work Phone: 1(308) 562-802105-07-2015 History of Past illness Narrative* Problem Noted Date Resolved Date Special screening for malignant neoplasms, colon 12/10/2014 12/10/2014 ASCUS with positive high risk HPV 08/30/2011 12/21/2014 Other and unspecified hyperlipidemia 04/17/2006 07/19/2011 documented as of this encounter (statuses as of 10/05/2022) [address]07-2015 History of Past illness Narrative* Problem Noted Date Resolved Date Special screening for malignant neoplasms, colon 12/10/2014 12/10/2014 ASCUS with positive high risk HPV 08/30/2011 12/21/2014 Other and unspecified hyperlipidemia 04/17/2006 07/19/2011 documented as of this encounter (statuses as of 10/16/2022) [facility]05-07-2015 History of Past illness Narrative* Problem Noted Date Resolved Date Special screening for malignant neoplasms, colon 12/10/2014 12/10/2014 ASCUS with positive high risk HPV 08/30/2011 12/21/2014 Other and unspecified hyperlipidemia 04/17/2006 07/19/2011 documented as of this encounter (statuses as of 11/15/2022) [facility]05-07[facility]2015 History of Past illness Narrative* Problem Noted Date Resolved Date Special screening for malignant neoplasms, colon 12/10/2014 12/10/2014 ASCUS with positive high risk HPV 08/30/2011 12/21/2014 Other and unspecified hyperlipidemia 04/17/2006 07/19/2011 documented as of this encounter (statuses as of 12/15/2022) [facility] History of Past illness Narrative* Problem Noted Date Diagnosed Date Resolved Date Special screening for malign ant neoplasms, colon 12/10/2014 12/10/2014 ASCUS with positive high risk HPV 08/30/2011 12/21/2014 Other and unspecified hyperlipidemia 04/17/2006 07/19/2011 documented as of this encounter (statuses as of 03/30/2023) [facility] No data available for this section [facility] Evaluation noteNo assessment information available [facility] Work Phone: Evaluation note* Diagnosis Onset Date Resolution Status Encounter for routine gynecological examination noneactive [facility] Work Phone: Evaluation note* 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 documented in this encounter [facility] note* 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 Facial weakness documented in this encounter [facility] note* Diagnosis Cognitive impairment- Primary Unspecified persistent mental disorders due to conditions classified elsewhere documented in this encounter [facility] note* 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 Facial weakness documented in this encounter [facility] note* Diagnosis Onset Date Resolution Status Encounter for routine gynecological examination noneactive UTI (urinary tract infection) [facility] Work Phone: Evaluation note* Diagnosis Onset Date Resolution Status Encounter for routine gynecological examination noneactive UTI (urinary tract infection) acute Breast mass, right [facility] Work Phone: Reason for referral (narrative)No reason for referral [facility] Summary Purpose Family History No Family History Records Found Relationship Condition Age at Onset Recorded Date/T mimi father Malignant neoplasm of colon 80 Relationship Condition Age at Onset Recorded Date/T mimi father Malignant neoplasm of colon 80 Kidney disorder Unknown mother Hypertension Unknown Advance Directives No Advanced Directives Records Found Advance Directive Response Recorded Date/ Time Living Will Yes July 23, 020 3:57pm Power of Brokerage Manager Yes July 23, 2020 3:57pm Advance Directive Response Recorded Date/ Time Living Will No July 03, 022 1:41pm Power of Brokerage Manager No July 03, 2022 1:41pm Advance Directive Response Recorded Date/ Time Living Will No August 27 11:45am Power of Brokerage Manager No August 27, 2022 11:45am Advance Directive Response Recorded Date/ Time Living Will No August 27 12:45pm Power of Brokerage Manager No August 27, 2022 12:45pm Advance Directive Response Recorded Date/ Time Living Will No August 27 12:45pm Do you have a Healthcare Power of Brokerage Manager? No August 27, 2022 12:45pm Living Will Yes May 29 11:44pm Do you have a Healthcare Power of Brokerage Manager? Yes May 29, 2024 11:44pm Advance Directive Response Recorded Date/ Time Living Will No August 27 12:45pm Do you have a Healthcare Power of Brokerage Manager? No August 27, 2022 12:45pm Chief Complaint and Reason for Visit Chief Complaint SCREENING Chief Complaint SCREENING Annual ([facility]) POST SADIA Reason for Visit Encounter for routin e gynecological examination Chief Complaint Annual ([facility]) POST SADIA RIGHT FLANK PAIN Reason for Visit Encounter for routin e gynecological examination Chief Complaint Annual ([facility]) POST SADIA RIGHT FLANK PAIN PELVIC PAIN FALL Reason for Visit Encounter for routin e gynecological examination Chief Complaint FALL WRIST Chief Complaint FALL WRIST PRE OP PRE OP Chief Complaint Annual ([facility]) Reason for Visit Encounter for routin e gynecological examination Chief Complaint Annual ([facility]) CONCERN FOR UTI SCREENING Reason for Visit Encounter for routin e gynecological examination UTI (urinary tract infection) Chief Complaint Annual ([facility]) CONCERN FOR UTI SCREENING ABNORMAL MAMMOGRAM (DONE 06/11/23) Reason for Visit Encounter for routin e gynecological examination UTI (urinary tract infection) Chief Complaint Annual ([facility]) CONCERN FOR UTI SCREENING ABNORMAL MAMMOGRAM (DONE 06/11/23) BIRADS 4 R BREAST RIGHT BREAST LESION RIGHT BREAST LESION Reason for Visit Encounter for routin e gynecological examination UTI (urinary tract infection) Breast mass, right Chief Complaint Admit Date S/P [facility] 05/30 ([facility] ER) June 24 10:49am EORDER July 23, 2024 11:48am EORDER- CXR August 05, 2024 9:30am Annual ([facility]) August 08, 2024 2: 34pm SCREENING September 24, 2024 12:59pm Colposcopy October 08, 2024 2:59 pm I26.99 Other pulmonary embolism without acute cor October 20, 2024 2:57pm Reason for Visit Admit Date Dyspnea on exertion June 24, 2024 10:49am Pulmonary emboli June 24, 2024 10:49am Aortic ectasia, thoracic June 24, 2024 10:49am Elevated blood pressure read ing in office without diagnosis of hypertension June 24, 2024 10:49am Elevated troponin June 24, 2024 10:49am [facility] exam for high-risk Medicare patient August 08, 2024 2:34pm History of loop electrical excision proc edure (LEEP) August 08, 2024 2:34pm Encounter for routine gynecological exam ination August 08, 2024 2:34pm GRACIELA I (cervical intraepithelial neoplasi a I) October 08, 2024 2:59pm Chief Complaint Admit Date EORDER July 23, 2024 11:48am EORDER- CXR August 05, 2024 9:30am Annual ([facility]) August 08, 2024 2: 34pm SCREENING September 24, 2024 12:59pm Colposcopy October 08, 2024 2:59 pm I26.99 Other pulmonary embolism without acute cor October 20, 2024 2:57pm Reason for Visit Admit Date [facility] exam for high-risk Medicare patient August 08, 2024 2:34pm History of loop electrical excision proc edure (LEEP) August 08, 2024 2:34pm Encounter for routine gynecological exam ination August 08, 2024 2:34pm GRACIELA I (cervical intraepithelial neoplasi a I) October 08, 2024 2:59pm Reason for Referral Specialty Diagnoses / Procedures Referred By Ruddy solomon Referred To Contact MR IMAGING Diagnoses Cognitive impairment Procedures MRI 3D POST PROCESSING 3D RENDERING W/INTERP&POSTPROC DIFF WORK STATION Reid Urrutia MD, [address] [place] [address] Mr Imaging Referral ID Status Reason Start Date Expiration Date Visits Requested Visits Authorized [id number] Pending Review Auto-Generat ed Referral 12/14/2022 01/13/2024 1 1 Specialty Diagnoses / Procedures Referred By Ruddy solomon Referred To Contact [facility] Diagnoses 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 Procedures CONSULT TO MARKETING DEVELOPER OCCUPATIONAL THERAPY EVAL HIGH COMPLEX 60 MINS David Samayoa Jr., MD [address] [facility] [address] [place] [address] [facility] [place] [address] [place] [id number] Referral ID Status Reason Start Date Expiration Date Visits Requested Visits Authorized [id number] Authorized PCP Requested Referral Auto-Generate d Referral 10/16/2022 10/16/2023 99 99 Specialty Diagnoses / Procedures Referred By Ruddy solomon Referred To Contact MR IMAGING Diagnoses Torres's palsy Procedures MRI BRAIN WO IVCON MRI BRAIN BRAIN STEM W/O CONTRAST MATERIAL David Samayoa Jr., MD [address] [facility] [address] [place] [address] Mr Imaging Referral ID Status Reason Start Date Expiration Date Visits Requested Visits Authorized [id number] Authorized Auto-Generat ed Referral 10/16/2022 11/15/2023 1 1 Additional Source Comments INFORMATION SOURCE (unrecogn ized section and content) DATE CREATED AUTHOR [facility] DATE CREATED AUTHOR AUTHOR'S ORGANIZ ATION 09/07/2022 [facility] ([place]) DATE CREATED AUTHOR AUTHOR'S ORGANIZ ATION 11/19/2022 [facility] DATE CREATED AUTHOR AUTHOR'S ORGANIZ ATION 12/15/2022 [facility] DATE CREATED AUTHOR AUTHOR'S ORGANIZ ATION 11/17/2023 [facility] DATE CREATED AUTHOR AUTHOR'S ORGANIZ ATION 02/21/2025 [facility] Goals (unrecognized section and content) Goals may be documented in a n alternate sectionGoals may be documented in an alternate sectionGoals may be documented in an alternate sectionGoals may be documented in an alternate sectionGoals may be documented in an alternate sectionGoals may be documented in an alternate section No data available for this sectionGoals may be documented in an alternate sectionGoals may be documented in an alternate sectionGoals may be documented in an alternate sectionGoals may be documented in an alternate sectionGoals may be documented in an alternate sectionGoals may be documented in an alternate sectionGoals may be documented in an alternate section Care Teams (unrecognized sec tion and content) Team Status: Active Member Role Status Dates Dr. Sascha Contreras MD Family Provider Active Zhang Muhammad , DO Primary Care Provider Active Team Status: Inactive Member Role Status Dates Zhang Muhammad DO Primary Care Provider Active Dr. Breonna Barrow MD Attending Provider, Emergency Provider Active Team Status: Inactive Member Role Status Dates Zhang Muhammad DO Primary Care Provider Active Dr. Hollis Nielsen , DO Emergency Provider Active Team Status: Active Member Role Status Dates Zhang Muhammad DO Primary Care Provider Active Dr. Gabo Bhagat MD Attending Provider Active Ray BRYAN PA-C Referring Provider Active Team Status: Inactive Member Role Status Dates Zhang M Sabina , DO Primary Care Provider Active Dr. Hollis Nielsen , DO Attending Provider, Emergency Provider Active Team Status: Inactive Member Role Status Dates Zhang Muhammad , DO Primary Care Provider Active Ray BRYAN PA-C Attending Provider, Referring Pr ovider Active Cheese [employer] Relationship Specialty Start Date End Date Sascha Hinojosa MD [address] [place] [address] PCP - General 12/21/03 Cheese [employer] Relationship Specialty Start Date End Date Sabina, Zhang Romero, DO [address] [place] [address] PCP - General Family Medicine 10/06/22 Cheese Cook Relationship Specialty Start Date End Date SabinaZhang Romero, DO [address] [facility] [address] [place] [address] PCP - General Family Medicine 10/06/22 Cheese Cook Relationship Specialty Start Date End Date SabinaZhang, DO [address] [facility] [address] [place] [address] PCP - General Family Medicine 10/06/22 Cheese Cook Relationship Specialty Start Date End Date Zhang Muhammad, [address] [facility] [address] [place] [address] PCP - General Family Medicine 10/06/22 Team Status: Inactive Member Role Status Dates Zhang Muhammad , Primary Care Provider, Referring Provider Active Dr. Breonna Jimenez , DO Attending Provider Activ e Team Status: Inactive Member Role Status Dates Zhang Muhammad DO Primary Care Provider Active Dr. Breonna Jimenez , DO Attending Provider, Refe rring Provider Active Team Status: Inactive Member Role Status Dates Zhang Muhammad , DO Primary Care Provider, Referring Provider Active IRVIN Valladares Attending Provider Active Team Status: Inactive Member Role Status Dates Zhang Muhammad DO Primary Care Provider Active IRVIN Valladares Attending Provider Active Team Status: Inactive Member Role Status Dates Zhang Muhammad DO Primary Care Provider, Referring Provider Active Dr. Charlee Serna MD Attending Provider Active Team Status: Active Member Role Status Dates Zhang Muhammad DO Primary Care Provider Active Dr. Charlee Serna MD Attending Provi shonna, Referring Provider, Other Provider Active Team Status: Inactive Member Role Status Dates Zhang Muhammad DO Primary Care Provider Active Dr. Charlee Serna MD Attending Provider, Referring Provider Active Team Status: Active Member Role Status Darrick Nickerson MD Primary Care Provider Active Team Status: Inactive Member Role Status Darrick Nickerson MD Primary Care Provider Active St art: June 24, 2024 End: June 24, 2024 Edel Nickerson MD Referring Provider Active Start : June 24, 2024 End: June 24, 2024 Dr. Vesna Hernandez MD Attending Provider Active Start: June 24, 2024 End: June 24, 2024 Team Status: Inactive Member Role Status Darrick Nickerson MD Primary Care Provider Active St art: July 23, 2024 End: July 23, 2024 Sascha Salazar MASK LAYOUT DESIGNER, MASK LAYOUT DESIGNER-C Attending Provider Active S tart: July 23, 2024 End: July 23, 2024 Sascha Salazar MASK LAYOUT DESIGNER, MASK LAYOUT DESIGNER-C Referring Provider Active S tart: July 23, 2024 End: July 23, 2024 Team Status: Inactive Member Role Status Darrick Nickerson MD Primary Care Provider Active St art: August 05, 2024 End: August 05, 2024 Piotr Bond MASK LAYOUT DESIGNER, MASK LAYOUT DESIGNER-C Attending Provider Active Start: August 05, 2024 End: August 05, 2024 Piotr Bond MASK LAYOUT DESIGNER, MASK LAYOUT DESIGNER-C Referring Provider Active Start: August 05, 2024 End: August 05, 2024 Team Status: Inactive Member Role Status Dates Zhang Muhammad DO Referring Provider Active Start: August 08, 2024 End: August 08, 2024 Dr. Rand Melgar MD Attending Provider Active Start: August 08, 2024 End: August 08, 2024 Edel Nickerson MD Primary Care Provider Active St art: August 08, 2024 End: August 08, 2024 Team Status: Inactive Member Role Status Darrick Nickerson MD Primary Care Provider Active St art: August 08, 2024 End: August 08, 2024 Dr. Rand Melgar MD Attending Provider Active Start: August 08, 2024 End: August 08, 2024 Dr. Rand Melgar MD Referring Provider Active Start: August 08, 2024 End: August 08, 2024 Team Status: Inactive Member Role Status Darrick Nickerson MD Primary Care Provider Active St art: September 24, 2024 End: September 24, 2024 Dr. Rand Melgar MD Attending Provider Active Start: September 24, 2024 End: September 24, 2024 Dr. Rand Melgar MD Referring Provider Active Start: September 24, 2024 End: September 24, 2024 Team Status: Inactive Member Role Status Darrick Nickerson MD Primary Care Provider Active St art: October 08, 2024 End: October 08, 2024 Edel Nickerson MD Referring Provider Active Start : October 08, 2024 End: October 08, 2024 Dr. Rand Melgar MD Attending Provider Active Start: October 08, 2024 End: October 08, 2024 Team Status: Inactive Member Role Status Darrick Nickerson MD Primary Care Provider Active St art: October 08, 2024 End: October 08, 2024 Dr. Rand Melgar MD Attending Provider Active Start: October 08, 2024 End: October 08, 2024 Dr. Rand Melgar MD Referring Provider Active Start: October 08, 2024 End: October 08, 2024 Team Status: Active Member Role Status Darrick Nickerson MD Primary Care Provider Active St art: October 20, 2024 Edel Nickerson MD Attending Provider Active Start : October 20, 2024 Edel Nickerson MD Referring Provider Active Start : October 20, 2024 Team Status: Inactive Member Role Status Darrick Nickerson MD Primary Care Provider Active St art: October 20, 2024 End: October 20, 2024 Edel Nickerson MD Attending Provider Active Start : October 20, 2024 End: October 20, 2024 Edel Nickerson MD Referring Provider Active Start : October 20, 2024 End: October 20, 2024 Care Team (unrecognized sect ion and content) Care Team Personnel Name: ZHANG MUHAMMAD DO Member Role: Primary Care Physician Address: Address: [address] [place] [address]- Care Team Related Persons Name: BACILIO DOUGLASS Source Comments (unrecognize d section and content) In the event this informatio n is protected by the Federal Confidentiality of Alcohol and Drug Abuse Patient Records regulations: The Federal rules restrict any use of the information to criminally investigate or prosecute any alcohol or drug abuse patient.[facility] the event this information is protected by the Federal Confidentiality of Alcohol and Drug Abuse Patient Records regulations: The Federal rules restrict any use of the information to criminally investigate or prosecute any alcohol or drug abuse patient.[facility] the event this information is protected by the Federal Confidentiality of Alcohol and Drug Abuse Patient Records regulations: The Federal rules restrict any use of the information to criminally investigate or prosecute any alcohol or drug abuse patient.[facility] the event this information is protected by the Federal Confidentiality of Alcohol and Drug Abuse Patient Records regulations: The Federal rules restrict any use of the information to criminally investigate or prosecute any alcohol or drug abuse patient.[facility] the event this information is protected by the Federal Confidentiality of Alcohol and Drug Abuse Patient Records regulations: The Federal rules restrict any use of the information to criminally investigate or prosecute any alcohol or drug abuse patient.[facility] Reason for Visit (unrecogniz ed section and content) Reason Comments Appointment Calling for clarific ation on appt details and where she was last seen. Reason Comments New Patient Reason Comments Orders Reason Comments PT Progress Note Specialty Diagnoses / Procedures Referred By Contac t Referred To Contact [facility] Diagnoses 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 Facial weakness Procedures CONSULT TO PHYSICAL THERAPY PHYSICAL THERAPY EVALUATION HIGH COMPLEX 45 MINS David Samayoa Jr., MD [address] [facility] [address] [place] [address] [facility] [address] [address] Referral ID Status Reason Start Date Expiration Date Visits Requested Visits Authorized [id number] Authorized PCP Requested Referral Auto-Generate d Referral 11/14/2022 11/14/2023 99 99 FOR RECORDS PERTAINING TO PATIENTS WHO ARE [...] BE BASED ON THE PRIMARY CLINICAL RECORDS. [employer] provides no warranty or guarantee of the accuracy or completeness of information in this document.
--- NOTE | 2025-03-04 13:13 | STRESSREP_ITS ---
Stress Test Report Date: 03/04/2025 Procedure: Exercise tolerance test/imaging study Indications: Dyspnea on exertion Consent: Per the patient Procedure: The patient exercised on a Nahum protocol for 8 minutes and 16 seconds achieving a peak heart rate of 141 bpm (94% predicted maximal heart rate) with a peak blood pressure 148/82 mmHg and a peak MET capacity of 10.1 METs. The baseline ECG demonstrated sinus rhythm. The peak exercise ECG showed minimal flat ST depressions in inferior and lateral leads, borderline positive for ischemia. Occasional PVCs noted with exercise. The functional capacity was considered excellent for age. There was no chest pain reported with exercise. Shortness of breath reported.. The examination was discontinued secondary to target heart rate being achieved. The patient was injected with 11.4 mCi of technetium 99m Cardiolite and subsequently rest SPECT Cardiolite nuclear imaging was obtained in the horizontal long, vertical long, and short axis views. Post-exercise, the patient was injected with 33.9 mCi of technetium 99m Cardiolite and subsequently stress SPECT Cardiolite nuclear imaging was obtained in the horizontal long, vertical long, and short axis views. A gated Cardiolite study at peak stress was obtained. Rest and stress SPECT Cardiolite nuclear imaging status post realignment, normalization, and attenuation correction, demonstrates the appearance of relative uniform tracer uptake and myocardial perfusion appearing within normal limits. There is end systolic thickening and brightening. The gated Cardiolite study demonstrates myocardial thickening and inward wall motion. The reported LVEF is 82%. Impression: 1. Technically adequate (percent predicted maximal heart rate greater than 85%) exercise tolerance test 2. Peak exercise ECG with ST depressions that were borderline positive for ischemia. Blunted blood pressure response with exercise 3. Occasional PVCs noted with exercise. 4. Rest and stress SPECT Cardiolite nuclear imaging demonstrate relative uniform tracer uptake and myocardial perfusion appearing within normal limits. 5. The gated Cardiolite study reports an LVEF of 82%. This note was generated with [employer] software. It may contain incorrect words, spelling, and punctuation that were not noted in checking the note before signing.
== END | disposition home or self-care (01) ==
LOC: CVS 06:35
PROVIDERS: PCP Family Medicine; Referring Provider Internal Medicine Cardiovascular Disease; Visit Provider Internal Medicine Cardiovascular Disease
DX: R06.09 Other forms of dyspnea (principal)
CPT/HCPCS: 78452; 93017; A9500; A4216

== ENCOUNTER → 2025-04-07 | Outpatient (CLI) | payer MEDICARE, BC, SELFPAY ==
--- NOTE | 2025-04-07 13:33 | CT_ITS ---
PROCEDURE: LIMITED CHEST CT CARDIAC ONLY N/A REASON FOR EXAM: ABNORMAL RESULT OF OTHER CARDIOVASCULAR FUNCTION STUDY TECHNIQUE: Procedure Code: [id number] Modality: CT Procedure: LIMITED CHEST CT CARDIAC ONLY Coronal and Sagittal reconstruction series were provided. CONTRAST: Isovue 370 VOLUME: 100 mL One or more dose reduction techniques were used (e.g., Automated exposure control, adjustment of the mA and/or kV according to patient size, use of iterative reconstruction technique). RADIATION DOSE SUMMARY: CTDlvol: 58.1 mGy DLP: 2137.01 mGycm COMPARISON: None FINDINGS: No coronary artery calcification. Mild scarring in the posterior lingular segment of the left upper lobe. Minimal linear scarring in the medial aspect of the right middle lobe. CT/Limited Chest CT Cardiac Only IMPRESSION: No coronary artery calcification. Reading Location: [place] [address]
[2025-04-07 13:40] VITALS: BP 117/80; PULSE 75; RESP 18; O2SAT 100; BMI 27.4
[2025-04-07 14:06] VITALS: BP 112/73; PULSE 71
[2025-04-07] MEDS: Nitroglycerin SL (ED/IMG/CATH) 0.4 MG TABLET SL (14:06)
[2025-04-07] MEDS: 0.9% Saline Lock 10 ML Syringe IV (14:06)
--- OUTSIDE RECORDS SUMMARY | 2025-04-07 22:54 | XMS RPT_ITS | CCD ---
Author Organization [facility] Care Team Providers Care Office Mover Name Role Phone Rand Melgar MD Unavailable [phone] KEAGAN Schroeder RN, Mague Li Unavailable UnavailRand Eubanks MD Unavailable [phone] ADULT LIVE IN CAREGIVER, Zeinab Benton Unavailable Maddie Neil Unavailable Unavailable Dr. Sascha Swift Primary Care Provider Dr. Sascha Swift Referring Provider Dr. Breonna Jimenez Attending Provider Dr. Sascha Swift Primary Care Provider Dr. Sascha Swift Referring Provider Dr. Breonna Jimenez Attending Provider ZHANG MUHAMMAD DO Primary Care Physician SABINA PIERRE, DR. HOYOS Primary Care Unavaila MARIN Gallegos DO Attending Unavailable ZHANG MUHAMMAD DO Primary Care Unavailable MARIN DOSS DO Attending Unavailable DO Zhang Muhammad Primary Care Provider Dr. Gabo Bhagat Attending Provider SHAI Navas Referring Provider [phone] Sascha Hinojosa MD Primary Care Provider [phone] Zhang Muhammad DO Primary Care Provider DAVID SAMAYOA Referring Unavailable ZHANG MUHAMMAD Primary Care Unavailable DO Zhang Muhammad Primary Care Provider DO Zhang Muhammad Referring Provider Dr. Breonna Jimenez Attending Provider DO Zhang Muhammad Primary Care Provider DO Zhang Muhammad Referring Provider Dr. Breonna Jimenez Attending Provider [...] David GAMING, Dr. Malagon Attending Provider Roof ADULT LIVE IN CAREGIVER-C, Sascha John Attending Provider Roof ADULT LIVE IN CAREGIVER-C, Sascha John [facility], Piotr [facility]ending Provider [facility] CARE[facility]-C, Piotr Referring Provider Zhang Muhammad DO Referring Provider Dr. Rand Melgar MD Attending Provider Dr. Rand Melgar MD Referring Provider Edel Nickerson MD Attending Provider Edel Nickerson MD Primary Care Provider Edel Nickerson MD Referring Provider Edel Nickerson MD Primary Care Provider Krishan MD, Chalon Referring Provider David GAMING, Dr. Malagon Attending Provider David GAMING, Dr. Malagon Referring Provider David GAMING, Dr. Malagon Other Provider David, Vesna Referring Unavailable David, Vesna Attending Unavailable David, Vesna Consulting Unavailable Krishan, Chalon Primary Care Unavailable Krishan, Chalon Primary Care Unavailable Marcduncanony, Rand Referring Unavailable Brynony, Rand Attending Unavailable Haroldo Liu Admitting Unavailable Krishan, Chalon Primary Care Unavailable de Haroldo Hancock Consulting Unavailable Danni So Attending Unavailable Roof ADULT LIVE IN CAREGIVER, Sascha H Referring Unavailable Roof ADULT LIVE IN CAREGIVER, Sascha H Attending Unavailable Krishan, Chalon Primary Care Unavailable Krishan, Chalon Primary Care Unavailable McMorrow ADULT LIVE IN CAREGIVER, Piotr Referring Unavailable McMorrow ADULT LIVE IN CAREGIVER, Piotr Attending Unavailable Krishan, Chalon Primary Care Unavailable Marcanthony, Rand Referring Unavailable Marcanthony, Rand Attending Unavailable David, Vesna Referring Unavailable David, Vesna Attending Unavailable Krishan, Chalon Primary Care Unavailable Krishan, Chalon Primary Care Unavailable Marcanthony, Rand Attending Unavailable Marcanthony, Rand Referring Unavailable Krishan, Chalon Referring Unavailable Krishan, Chalon Primary Care Unavailable Krishan, Chalon Attending Unavailable Krishan, Chalon Primary Care Unavailable Sharmila Izaguirre Referring Unavailabl e Sharmila Izaguirre Attending Unavailabl e Haroldo Liu Consulting Unavailable Haroldo Liu Admitting Unavailable Krishan, Chalon Primary Care Unavailable Haroldo Liu Attending Unavailable Krishan, Edel Attending Unavailable Krishan, Chalon Primary Care Unavailable Krishan, Chalon Attending Unavailable Krishan, Chalon Primary Care Unavailable Krishan, Chalon Referring Unavailable Krishan, Chalon Attending Unavailable Krishan, Chalon Primary Care Unavailable Krishan, Chalon Referring Unavailable Danni So Attending Unavailable Danni So Consulting Unavailable Krishan, Chalon Referring Unavailable Krishan, Chalon Primary Care Unavailable Marcanthony, Rand Attending Unavailable Krishan, Chalon Referring Unavailable David, Vesna Attending Unavailable Krishan, Chalon Primary Care Unavailable David, Vesna Attending Unavailable Krishan, Chalon Primary Care Unavailable Krishan, Chalon Referring Unavailable Krishan, Chalon Primary Care Unavailable Zhang Muhammad Referring Unavailable Rand Melgar Attending Unavailable Edel Nickerson Primary Care Unavailable Tyler Gupta Attending Unavailable Allergies Allergy Classification Reported Allergen(s) Allergy Type Date of Onset Reaction(s) Facility (3 sources) penicillin v drug allergy 7 [facility] (20 sources) Penicillins; Translations: [PENICILLINS] Allergy to substance 6 Anaphylaxis [facility] (1 source) Penicillin; Translations: [penicillin] Drug Allergy Anaphylactoid reaction (disorder) [facility] (1 source) Lisinopril Drug Allergy 5 Dry, persistent cough [facility] (1 source) Lisinopril Drug Allergy 5 [facility] Repository Medications Current Medications Medication Drug Class(es) Dates Sig (Normalized) Sig (Original) doxycycline hyclate 100 mg oral tablet (1 source) Tetracycline-cla ss Drug Start: 08-29-2022 take 1 tablet by mouth twice daily doxycycline hyclate 100 mg oral tablet TAKE 1 TABLET BY MOUTH TWICE A DAY FOR 7 DAYS Start Date: 08/29/22 Status: Ordered escitalopram 5 mg oral tablet (20 sources) Serotonin Reuptake Inhibitor Start: 12-04-2024 take 1 tablet by mouth once daily Escitalopram Oxalate 5 mg tablet Active 5 mg PO daily December 04, 2024 12:00am Start: 07-20-2020 End: 12-04-2024 take 1 tablet by mouth once daily Escitalopram Oxalate (Lexapro) 10 mg tablet Discontinued 10 mg PO DAILY July 20, 2020 1:00am December 04, 2024 1:42pm Comment on above: Take 10 mg by mouth once daily. hydroCHLOROthiazide 25 mg oral tablet (5 sources) Thiazide Diuretic Start: take 1 tablet by mouth once daily Hydrochlorothiazide 25 mg tablet Active 25 mg PO daily 90 October 28, 2024 12:00am Start: 07-07-2024 End: 10-22-2024 take 1 tablet by mouth once daily Hydrochlorothiazide 25 mg tablet Discontinued 25 mg PO daily 30 July 07, 2024 1:00am October 22, 2024 [...] mcg capsule Discontinued 112 ug PO DAILY 90 4 March 21, 2019 2:34pm March 24, 2019 10:55am Start: 03-29-2017 take 1 tablet by james th once daily SYNTHROID 112 MCG TABS One tablet by mouth daily LEVOTHYROXINE SODIUM [id number] Rand Melgar MD Start: 03-29-2017 SYNTHROID 112 MCG TABS LEVOTHYROXINE SODIUM [id number] Maddie Neil Start: 03-12-2017 End: 07-20-2020 take 1 tablet by mouth once daily Levothyroxine (Synthroid) 112 mcg tablet Discontinued 112 ug PO DAILY 90 4 March 25, 2019 8:49am January 20, 2020 11:08am Start: 03-12-2017 take 1 tablet by james th once daily SYNTHROID 112 MCG TABS One tablet by mouth daily LEVOTHYROXINE SODIUM [id number] Zeinab Haddad NP Comment on above: Take 1 tablet by james th once daily. TAKE 1 TABLET BY JAMES TH EVERY DAY losartan potassium 25 mg oral tablet (1 source) Angiotensin 2 Receptor Samuel Start: 5 take 1 tablet by mouth once daily Losartan 25 mg tablet Active 25 mg PO daily 30 February 17, 2025 12:00am metoprolol tartrate 50 mg oral tablet (1 source) beta-Adrenergic Samuel Start: 5 take 1 tablet by mouth once Metoprolol Tartrate 50 mg tablet Active 50 mg PO ONCE 1 March 06, 2025 12:00am Take [address] scan Multivitamin preparation (5 sources) Start: 3 take 1 tablet by mouth once daily Multivitamin Active 1 TABLET PO DAILY April 09, 2023 11:00pm Start: 04-10-2023 take 1 tablet by james th once daily Multivitamin Active 1 TABLET PO DAILY April 10, 2023 12:00am Start: 08-29-2022 take 1 tablet by james th once daily Multivitamin Dose = 1 tab(s), Oral, Daily, 0 Refill(s) Start Date: 08/29/22 Status: Ordered Multivitamin tablet (3 sources) Start: 04-10-2023 Multivitamin t ablet Active 1 {tbl} PO DAILY April 10, 2023 12:00am Completed/Discontinued Medications Medication Drug Class(es) Dates Sig (Normalized) Sig (Original) acetaminophen 325 mg / HYDROcodone bitartrate 5 mg oral tablet (10 sources) Opioid Agonist Start: 08-27-2022 End: 04-10-2023 Hydrocodone-Acetami nophen 5-325 mg tablet Discontinued 1 {tbl} PO EVERY 6 HOURS as needed for pain 12 3 0 August 27, 2022 April 10, 2023 2:36pm Fracture of head of radius Start: 08-27-2022 End: 04-10-2023 take 1 tablet by mouth every six hours Hydrocodone-Acetaminophen Discontinued 1 TABLET PO EVERY 6 HOURS 12 3 August 27, 2022 April 10, 2023 1:36pm [...] by mouth every 4 hours as needed. apixaban 5 mg oral tablet (3 sources) Factor Xa Inhibitor Start: 05-30-2024 End: 12-04-2024 take 1 tablet by mouth once Apixaban (Eliquis Dvt-Pe Treat 30d Start) 5 mg (74 tabs) tablets,dose pack Discontinued 0 PO .COMPLEX 74 0 May 30, 2024 12:00am December 04, 2024 1:41pm orally per package directions azithromycin 250 mg oral tablet (5 sources) [...] Active Comment on above: Take by mouth. lisinopril 10 mg oral tablet (14 sources) Angiotensin Converting Enzyme Inhibitor Start: 07-11-2024 End: 07-11-2024 take 1 tablet by mouth twice daily Lisinopril 10 mg tablet Discontinued 10 mg PO TWICE A DAY 180 3 July 11, 2024 10:39am July 11, 2024 10:43am dose increased, pt is OUT of med PLEASE FILL Start: 07-07-2024 End: 02-17-2025 take 1 tablet by mouth once daily Lisinopril 10 mg tablet Discontinued 10 mg PO daily 90 3 October 28, 2024 1:32pm February 17, 2025 9:37am Start: 06-27-2024 End: 07-07-2024 take 1 tablet by mouth once daily Lisinopril 5 mg tablet Discontinued 5 mg PO daily 30 June 27, 2024 1:00am July 07, 2024 1:50pm LORazepam 0.5 mg oral tablet (20 sources) Benzodiazepine Start: 01-09-2017 End: 01-20-2020 take 1 tablet by mouth at bedtime Lorazepam (Ativan) 0.5 mg tablet Discontinued 0.5 mg PO AT BEDTIME 15 0 January 01, 2018 3:56pm January 20, 2020 [...] Comment on above: Take 1 capsule by [facility]. Drug Treatment Unknown - unknown (1 source) No information available. omeprazole 20 mg delayed release oral capsule (14 sources) Proton Pump Inhibitor Start: 05-18-2021 End: [...] release (DR/EC) Discontinued 40 mg PO DAILY 30 2 December 14, 2020 7:33am May 18, 2021 1:06pm take at night if you take thyroid meds in AM rifAXIMin 550 mg oral tablet (20 sources) Rifamycin Antibacterial Start: 11-08-2020 End: 11-24-2020 take 1 tablet by mouth three times daily Rifaximin (Xifaxan) 550 mg tablet Discontinued 550 mg PO THREE TIMES A DAY 42 14 0 November 10, 2020 1:35pm November 23, 2020 12:00am November 24, 2020 12:02am sulfamethoxazole 800 mg / trimethoprim 160 mg oral tablet (6 sources) Dihydrofolate Reductase Inhibitor Antibacterial, Sulfonamide Antimicrobial Start: 05-05-2023 End: 05-10-2023 Sulfamethoxazole- Trimethoprim 800-160 mg tablet Discontinued 1 {tbl} PO TWICE A DAY 10 5 0 May 05, 2023 12:00am May 09, 2023 12:00am May 10, 2023 12:04am Urinary tract infection Urinary tract infection, site not specified Start: 05-05-2023 End: 05-10-2023 take 1 tablet by mouth twice daily Sulfamethoxazole-Trimethoprim Discontinu ed 1 TABLET PO TWICE A DAY 10 5 May 04, 2023 11:00pm May 09, 2023 [...] PO AT BEDTIME as needed for insomnia 30 November 28, 2022 9:20am August 17, 2023 11:47am Start: 03-29-2017 ZOLPIDEM TARTR ATE 5 MG TABS nightly as needed ZOLPIDEM TARTRATE [id number] Rand Melgar MD Start: 10-12-2016 End: 03-21-2022 take 1 tablet by mouth at bedtime as needed Zolpidem (Ambien) 5 mg tablet Discontinued 5 mg PO AT BEDTIME as needed for insomnia 02 11October 18, 2021 11:36am March 21, 2022 1:04pm Comment on above: Take 1 tablet by james th at bedtime as needed. FOR INSOMNIA Problems Active Problems Problem Classification Problem Date Documented Da te Episodic/Chronic Abdominal pain (14 sources) Chronic pelvic pain of female; Translations: [Pelvic and perineal pain] 11-08-2020 Episodic Comment on above: nl pelvic US in [place] t his fall. gastritis on EGD, nl colonoscopy. ordered CEA CA 125, PFPT recommended. Aortic; peripheral; and visceral artery aneurysms (6 sources) Ectasia of thoracic aorta; Translations: [Thoracic aortic ectasia] Onset: 5 06-24-2024 Chronic E Codes: Fall (10 sources) Fall; Translations: [Unspecified fall, initial encounter] 07-11-2022 Episodic Esophageal disorders (14 sources) Gastroesophageal reflux disease; Translations: [Gastro-esophageal reflux disease without esophagitis] 05-18-2021 Chronic Essential hypertension (6 sources) Essential hypertension; Translations: [Essential (primary) hypertension] Onset: 5 08-08-2024 Chronic Comment on above: GRACIELA III in the past Fracture of upper limb (9 sources) Fracture of radial head; Translations: [Displaced fracture of head of unspecified radius, initial encounter for closed fracture] 08-27-2022 Episodic Genitourinary symptoms and ill-defined conditions (14 sources) Double incontinence; Translations: [Unspecified urinary incontinence] 11-08-2020 Chronic Comment on above: PFPT consult. RUQ us ordered to evaluate gall bladder function due to loose stool, urine culture and UA dip. Intracranial injury (7 sources) Traumatic brain injury; Translations: [Traumatic brain injury] 04-10-2023 Episodic Comment on above: Due to concussion Menopausal disorders (14 sources) Atrophic vaginitis; Translations: [Postmenopausal atrophic vaginitis] 01-20-2020 Chronic Nonmalignant breast conditions (5 sources) Breast lump; Translations: [Unspecified lump in the right breast, unspecified quadrant] 06-21-2023 Episodic Open wounds of head; neck; and trunk (10 sources) Laceration of forehead; Translations: [Laceration without foreign body of other part of head, initial encounter] 07-11-2022 Episodic Other circulatory disease (4 sources) Elevated blood-pressure reading without diagnosis of hypertension; Translations: [Elevated blood-pressure reading, without diagnosis of hypertension] 06-24-2024 Episodic Other connective tissue disease (5 sources) Weakness of face muscles; Translations: [Facial weakness] Onset: 3 Episodic Other female genital disorders (14 sources) History of dysplasia of cervix; Translations: [Personal history of cervical dysplasia] 01-20-2020 Episodic Other female genital disorders (5 sources) Cervical intraepithelial neoplasia grade 1; Translations: [Mild cervical dysplasia] 10-08-2024 Episodic Comment on above: biopsies done, if co nsistent repeat in 1 year. h/o GRACIELA 3 12 years ago Other gastrointestinal disorders (14 sources) Diarrhea; Translations: [Diarrhea, unspecified] 11-08-2020 Episodic Comment on above: us abdomen ordered Other gastrointestinal disorders (14 sources) Abdominal bloating; Translations: [Abdominal distension (gaseous)] 11-08-2020 Episodic Comment on above: suspect SBO or IBS, recommend Xifaxin and then functional medicine consult if persistent. Other injuries and conditions due to external causes (10 sources) Closed injury of head; Translations: [Unspecified injury of head, initial encounter] 07-11-2022 Episodic Other lower respiratory disease (5 sources) Dyspnea on exertion; Translations: [Other forms [...] Episodic Other nutritional; endocrine; and metabolic disorders (3 sources) Body mass index 25-29 - overweight; Translations: [Overweight] 06-07-2024 Episodic Other skin disorders (14 sources) Mass of upper limb; Translations: [Localized swelling, mass and lump, left upper limb] 05-18-2021 Episodic Residual codes; unclassified (14 sources) Family history of cancer of colon; Translations: [Family history of malignant neoplasm of digestive organs] 01-20-2020 Episodic Comment on above: Screen Q5 year, due in 2019 Residual codes; unclassified (5 sources) Patient encounter status; Translations: [Other specified personal risk factors, not elsewhere classified] 08-08-2024 Episodic Superficial injury; contusion (10 sources) Contusion of knee; Translations: [Contusion of unspecified knee, initial encounter] 07-11-2022 Episodic Thyroid disorders (20 sources) Hypothyroidism; Translations: [Hypothyroidism, unspecified] Onset: 6 03-19-2019 Chronic Unclassified (20 sources) Encounter for screening for lipoid disorders; Translations: [Patient encounter status] Onset: 7 02-27-2017 Episodic Unclassified (3 sources) Gynecologic examination ; Translations: [...] for lipoid disorders] Onset: 7 02-27-2017 Unclassified (14 sources) No history of procedure; Translations: [No [...] acute cor pulmonale] Onset: Urinary tract infections (9 sources) Urinary tract infectious disease; Translations: [Urinary [...] Complications of surgical procedures or medical care (5 sources) Postoperative complication; Translations: [Unspecified complication of procedure, initial encounter] Onset: 05-30-2024 05-29-2024 Episodic Malaise and fatigue (13 sources) Fatigue; Translations: [Other fatigue] Onset: 06-24-2024 [...] [Overweight] Onset: 05-30-2024 Episodic Pulmonary heart disease (7 sources) Pulmonary embolism; Translations: [Other pulmonary embolism [...] factors, not elsewhere classified] Onset: 08-08-2024 Episodic Results Test Name Value Interpretation Reference Range Facility Cardiovascular stress test r eportOrdered By: Vesna Hernandez on 03-04-2025 Study report [facility] [address] [place] [id number] MR#: [id number] Acct: [id number] Name: JENNIFER ZULETA Rep #: [id number] : 1955 69 From: Vesna Hernandez MD Primary Care: Dr. Edel Nickerson MD Status: REG CLI Referring Dr: Vesna Hernandez MD Sex: F C Stress Test Report Date: 03/04/2025 Procedure: Exercise tolerance test/imaging study Indications: Dyspnea on exertion Consent: Per the patient Procedure: The patient exercised on a Nahum protocol for 8 minutes and 16 seconds achievinga peak heart rate of 141 bpm (94% predicted maximal heart rate) with a peak blood pressure 148/82 mmHg and a peak MET capacity of 10.1 METs. The baseline ECG demonstrated sinus rhythm. The peak exercise ECG showed minimal flat ST depressions in inferior and lateral leads, borderline positive for ischemia. Occasional PVCs noted with exercise. The functional capacity was considered excellent for age. There was no chest pain reported with exercise. Shortness of breath reported.. The examination was discontinued secondary to target heart rate being achieved. The patient was injected with 11.4 mCi of technetium 99m Cardiolite and subsequently rest SPECT Cardiolite nuclear imaging was obtained in the horizontal long, vertical long, and short axis views. Post-exercise, the patientwas injected with 33.9 mCi of technetium 99m Cardiolite and subsequently stress SPECT Cardiolite nuclear imaging was obtained in the horizontal long, vertical long, and short axis views. A gated Cardiolite study at peak stress was obtained. Rest and stress SPECT Cardiolite nuclear imaging status post realignment, normalization, and attenuation correction, demonstrates the appearance of relative uniform tracer uptake and myocardial perfusion appearing within normal limits. There is end systolic thickening and brightening. The gated Cardiolitestudy demonstrates myocardial thickening and inward wall motion. The reported LVEF is 82%. Impression: 1. Technically adequate (percent predicted maximal heart rate greater than 85%)exercise tolerance test 2. Peak exercise ECG with ST depressions that were borderline positive for ischemia. Blunted blood pressure response with exercise 3. Occasional PVCs noted with exercise. 4. Rest and stress SPECT Cardiolite nuclear imaging demonstrate relative uniform tracer uptake and myocardial perfusion appearing within normal limits. 5. The gated Cardiolite study reports an LVEF of 82%. This note was generated with ZoweeTVation software. It may contain incorrectwords, spelling, and punctuation that were not noted in checking the note beforesigning. 03/04/25 1316 Date _ Vesna Hernandez MD CC: Dr. Vesna Hernandez MD; Dr. Edel Nickerson MD ~ Date Dictated: 03/04/25 1313 Date Transcribed: 03/04/251312 Roll Wrapper: MARY Farias [facility] Work Phone: Stress Reporton 03-04-2025 Stress Report [facility] [address] [place] [address] MR#: [id number] Acct: [id number] Name: JENNIFER ZULETA Rep #: [id number] : 1955 69 From: Vesna Hernandez MD Primary Care: Dr. Edel Nickerson MD Status: REG CLI Referring Dr: Vesna Hernandez MD Sex: F C Stress Test Report Date: 03/04/2025 Procedure: Exercise tolerance test/imaging study Indications: Dyspnea on exertion Consent: Per the patient Procedure: The patient exercised on a Nahum protocol for 8 minutes and 16 seconds achieving a peak heart rate of 141 bpm (94% predicted maximal heart rate) with a peak blood pressure 148/82 mmHg and a peak MET capacity of 10.1 METs. The baseline ECG demonstrated sinus rhythm. The peak exercise ECG showed minimal flat ST depressions in inferior and lateral leads, borderline positive for ischemia. Occasional PVCs noted with exercise. The functional capacity was considered excellent for age. There was no chest pain reported with exercise. Shortness of breath reported.. The examination was discontinued secondary to target heart rate being achieved. The patient was injected with 11.4 mCi of technetium 99m Cardiolite and subsequently rest SPECT Cardiolite nuclear imaging was obtained in the horizontal long, vertical long, and short axis views. Post-exercise, the patient was injected with 33.9 mCi of technetium 99m Cardiolite and subsequently stress SPECT Cardiolite nuclear imaging was obtained in the horizontal long, vertical long, and short axis views. A gated Cardiolite study at peak stress was obtained. Rest and stress SPECT Cardiolite nuclear imaging status post realignment, normalization, and attenuation correction, demonstrates the appearance of relative uniform tracer uptake and myocardial perfusion appearing within normal limits. There is end systolic thickening and brightening. The gated Cardiolite study demonstrates myocardial thickening and inward wall motion. The reported LVEF is 82%. Impression: 1. Technically adequate (percent predicted maximal heart rate greater than 85%) exercise tolerance test 2. Peak exercise ECG with ST depressions that were borderline positive for ischemia. Blunted blood pressure response with exercise 3. Occasional PVCs noted with exercise. 4. Rest and stress SPECT Cardiolite nuclear imaging demonstrate relative uniform tracer uptake and myocardial perfusion appearing within normal limits. 5. The gated Cardiolite study reports an LVEF of 82%. This note was generated with Scandlines dictation software. It may contain incorrect words, spelling, and punctuation that were not noted in checking the note before signing. 03/04/25 1316 Date Vesna Hernandez MD CC: Dr. Vesna Hernandez MD; Dr. Edel Nickerson MD Date Dictated: 03/04/25 131 Date Transcribed: 03/04/251312 Roll Wrapper: MARY Signed Normal [facility] Cardiology Visit Reporton Cardiology Visit Report [facility] [address] [place] [address] OFFICE VISIT Date of Service: 12/04/24 MR#: [id number] Acct: [id number] Name: JENNIFER ZULETA Rep #: [id number] : 1955 Provider: Dr. Vesna Hernandez MD Age/Sex: 69/F Location: [facility] Status: Signed HPI HPI History of Present Illness Details: This lady is here for follow-up visit. Her apixaban that she was taking for postop DVT and PE has been discontinued recently. Denies any chest pains either at rest or with exertion. She has some shortness of breath with exertion. She recently came from a 2-week hiking trip to [facility]. No orthopnea. No PND. No ankle edema. Intake Vital Signs 10/08/24 15:16 12/04/24 08:16 Height 5 ft 3 in 5 ft 3 in Weight: 172 lb BMI 30.4 BP 117/79 Blood Pressure Location Lt brachial Position Sitting Respiration 18 Pulse 78 Pulse Source NIBP Intake Visit Reasons: 6 M FU Test Operator Required: No Accompanied by: Self Is patient [...] 2 current occupational status: employed current occupation: [employer]- sometimes Smoking Status: Never smoker alcohol intake: [...] of t (more content not included)... Normal [facility] CTA Chst, Abd, Pel W and/or WOon 10-20-2024 CTA Chst, Abd, Pel W and/or WO [facility] Imaging Services [address], [place] [id number] CTA Chst, Abd, Pel W and/or WO MR#: [id number] Acct: [id number] Name: JENNIFER ZULETA Rep #: [id number] : 1955 F 69 From: Paul haley MD PCP: Dr. Edel Nickerson MD Status: REG CLI Study: CTA Chst, Abd, Pel W and/or WO Date of Exam: 0 10/20/24 Exam# [id number] Ordering Dr: Edel Nickerson MD PROCEDURE: CTA [...] use of iterative reconstruction technique). [facility] CC: Dr. Edel Nickerson MD Roll Wrapper: Signed Normal [facility] Surgical pathology reportOrd ered By: Radha Lomas on 10-17-2024 Surgical pathology study [facility] Security Systems Administrator Office Visit Reporton 10-08-2024 Security Systems Administrator Office Visit Report [facility]'[address], [address] [place] [address] OFFICE VISIT Date of Service: 10/08/24 MR#: [id number] Acct: [id number] Name: JENNIFER ZULETA Rep #: [id number] : 1955 Provider: Dr. Rand camarena MD Age/Sex: 69/F Location: [facility] Status: Signed Intake Vital Signs 08/08/24 14:40 10/08/24 15:15 10/08/24 15:16 Height 5 ft 3 in 5 ft 3 in 5 ft 3 in Weight: 170 lb 173 lb 8 oz BMI 30.1 30.7 BP 136/84 H 116/79 Intake Visit Reasons: Colposcopy Chief Complaint: colposcopy Test Operator Required: No Is patient in pain?: No [...] 2 current occupational status: employed current occupation: [employer]- sometimes Smoking Status: Never smoker alcohol intake: [...] complications. 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 Normal [facility] Surgery Specimen Level Janie 10-08-2024 Surgery Specimen Level IV -------- Patient Age/Sex Location Account Attending Physician -------- JENNIFER ZULETA 69/F [facility] [id number] Dr. Rand Melgar MD -------- Specimen: [id number] Received: 10/09/24 Status: MONICA Powers Num: [id number] Spec Type: EGD BIOPSY Subm Dr: Dr. [...] x 0.2 cm. Totally submitted in one cassette.GODWIN. 10/09/2024 CPT:94964d6, 06548, 37223 -------- Patient Age/Sex Location Account Attending Physician -------- JENNIFER ZULETA 69/F [facility]SPEC [id number] Dr. Rand Melgar MD -------- Signed (signature on file) Dr. Radha Lomas MD 10/17/24 1713 -------- Normal [facility] Comment on above: Performed By: #### P SUIV #### [facility] [address] [place], [address] SCRN MAMM (CAD)W/KENRICK BILATo n 09-24-2024 SCRN MAMM (CAD)W/KENRICK BILAT [facility] Imaging Services [address] [place] [address] SCRN MAMM (CAD)W/KENRICK BILAT MR#: [id number] Acct: [id number] Name: JENNIFER ZULETA Rep #: [id number] : 1955 F 69 From: Anuja Bond PCP: Dr. Edel Nickerson MD Status: REG CLI Study: SCRN MAMM (CAD)W/KENRICK BILAT Date of Exam: 09/06 04/30 Exam# [id number] Ordering Dr: Rand Melgar PROCEDURE: SCRN MAMM [...] SCREENING. Follow-up code: Routine Follow-up Reading Location: [facility] CC: Dr. Edel Nickerson MD; Dr. Rand Melgar MD Roll Wrapper: Signed Normal [facility] PAP IG HPV APTIMA 16/18,45on 08-18-2024 ADEQ Comment Normal . [facility] Comment on above: Order Comment: Speci men Comment: [id number] Comment: Source.............Cervix;EndocervixSpecimen Comment: Other..............Post MenopausalSpecimen Comment: No. of containers..01 ThinPrep Vial Result Comment: Sati sfactory for evaluation. Endocervical and/or squamous metaplastic cells (endocervical component) are present. Performed By: #### L 7400.0280 ####[facility] [address] [place], [place], [address] COMM . Normal . [facility] Comment on above: Order Comment: Speci men Comment: [id number] Comment: Source.............Cervix;EndocervixSpecimen Comment: Other..............Post MenopausalSpecimen Comment: No. of containers..01 ThinPrep Vial Performed By: #### L 7400.0280 ####[facility] [address] [place], [place], [address] COMMENT Comment Normal . [facility] Comment on above: Order Comment: Speci men Comment: [id number] Comment: Source.............Cervix;EndocervixSpecimen Comment: Other..............Post MenopausalSpecimen Comment: No. of containers..01 ThinPrep Vial Result Comment: This liquid based ThinPrep(R) pap test was screened with the use of an image guided system. Performed By: #### L 7400.0280 ####[facility] [address] [place], [place], [address] DIAG Comment Abnormal . [facility] Comment on above: Order Comment: Speci men Comment: [id number] Comment: Source.............Cervix;EndocervixSpecimen Comment: Other..............Post MenopausalSpecimen Comment: No. of containers..01 ThinPrep Vial Result Comment: EPIT HELIAL CELL ABNORMALITY. LOW GRADE SQUAMOUS INTRAEPITHELIAL LESION (LSIL). Performed By: #### L 7400.0280 ####[facility] [address] [place], [address] HPV APTIMA, HR Positive Abnormal Negative [facility] Comment on above: Order Comment: Speci men Comment: [id number] Comment: Source.............Cervix;EndocervixSpecimen Comment: Other..............Post MenopausalSpecimen Comment: No. of containers..01 ThinPrep Vial Result Comment: This nucleic acid amplification test detects fourteen high- risk HPV types (16,18,31,33,35,39,45,51,52,56,58,59,66,68) without differentiation. Performed By: #### L 7400.0280 ####[facility] [address] [place], [address] HPV Patty Rfx Comment Normal . [facility] Comment on above: Order Comment: Speci men Comment: [id number] Comment: Source.............Cervix;EndocervixSpecimen Comment: Other..............Post MenopausalSpecimen Comment: No. of containers..01 ThinPrep Vial Result Comment: Crit eria not met, HPV Genotype not performed. Performed at: [address] [id number] Vpk Teacher: Rosita Silva MD, Phone: [phone] Performed at: [address] [id number] Vpk Teacher: Megan Lind PhD, Phone: [phone] Performed at: [address] [id number] Vpk Teacher: Rosita Silva MD, Phone: [phone] Performed By: #### L 7400.0280 ####[facility] [address] [place], [address] PAPSMR Comment Normal . [facility] Comment on above: Order Comment: Speci men Comment: [id number] Comment: Source.............Cervix;EndocervixSpecimen Comment: Other..............Post MenopausalSpecimen Comment: No. of containers..01 ThinPrep Vial Result Comment: The Pap smear is a screening test designed to aid in the detection of premalignant and malignant conditions of the uterine cervix. It is not a diagnostic procedure and should not be used as the sole means of detecting cervical cancer. Both false-positive and false-negative reports do occur. Performed By: #### L 7400.0280 ####[facility] [address] [place], [place], [address] Path.prov.IDC-9 Comment Normal . [facility] Comment on above: Order Comment: Speci men Comment: [id number] Comment: Source.............Cervix;EndocervixSpecimen Comment: Other..............Post MenopausalSpecimen Comment: No. of containers..01 ThinPrep Vial Result Comment: R87. 612 Performed By: #### L 7400.0280 ####[facility] [address] [place], [place], [address] PERFORM Comment Normal . [facility] Comment on above: Order Comment: Speci men Comment: [id number] Comment: Source.............Cervix;EndocervixSpecimen Comment: Other..............Post MenopausalSpecimen Comment: No. of containers..01 ThinPrep Vial Result Comment: Cherelle Moncada Applications Chemist (ASCP) Performed By: #### L 7400.0280 ####[facility] [address] [place], [place], [address] RECOMM Comment Abnormal . [facility] Comment on above: Order Comment: Speci men Comment: [id number] Comment: Source.............Cervix;EndocervixSpecimen Comment: Other..............Post MenopausalSpecimen Comment: No. of containers..01 ThinPrep Vial Result Comment: Sugg est follow up as clinically appropriate. Performed By: #### L 7400.0280 ####[facility] [address] [place], [place], [address] SIGN Comment Normal . [facility] Comment on above: Order Comment: Speci men Comment: [id number] Comment: Source.............Cervix;EndocervixSpecimen Comment: Other..............Post MenopausalSpecimen Comment: No. of containers..01 ThinPrep Vial Result Comment: Hanna Newton MD, Pathologist Performed By: #### L 7400.0280 ####[facility] [address] [place], [place], [address] Medical Records Receptionist Cyto stain Nom (C vx/Vag) [ID]Ordered By: Rand Melgar on 08-08-2024 Pap Smear Performed By Comment . [facility] Comment on above: Callie Moncada, Applications Chemist (ASCP) Cytology report Cyto stain D oc (Cvx/Vag)Ordered By: Rand Melgar on 08-08-2024 Thin Prep Pap Smear Comment . [facility] Comment on above: The Pap smear is [...] 08-08-2024 HPV Genotype Special Info Comment . [facility] Comment on above: Criteria not met, HP V Genotype not performed.Performed at: [address] [id number] Director: Rosita Silva MD, Phone: [phone] at: [facility] [place], [place] [id number] Director: Megan Lind PhD, Phone: [phone] at: =G - [facility] [address] [place] [id number] Director: Roista Silva MD, Phone: [phone] HPV 16+18+31+33+35+39+45+51+ 52+56+58+59+66+68 DNA Probe+sig amp Ql (Cvx)Ordered By: Rand Melgar on 08-08-2024 Human Papillomavirus High Risk Positive High Negative [facility] Comment on above: This nucleic acid am plification test detects fourteen high- risk HPV types (16,18,31,33,35,39,45,51,52,56,58,59,66,68)without differentiation. Image-guided ThinPrep PapOrd ered By: Rand Melgar on 08-08-2024 Pap Smear Note Comment . [facility] Comment on above: This liquid based Th inPrep(R) pap test was screened withthe use of an image guided system. Image-guided liquid-based Pa pOrdered By: Rand Melgar on 08-08-2024 Pap Smear Diagnosis Comment High . [facility] Comment on above: EPITHELIAL CELL ABNO RMALITY.LOW GRADE SQUAMOUS INTRAEPITHELIAL LESION (LSIL). Security Systems Administrator Office Visit Reporton 08-08-2024 Security Systems Administrator Office Visit Report [facility]'s [address], [address] [place] [address] OFFICE VISIT Date of Service: 08/08/24 MR#: [id number] Acct: [id number] Name: JENNIFER ZULETA Rep #: [id number] : 1955 Provider: Dr. 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 Required: No Is patient in pain?: Yes [...] menopausal: Yes Patient : No : No [facility] Medical History (Updated 08/08/24 @ 15:21 by [...] 2 current occupational status: employed current occupation: [employer]- sometimes Smoking Status: Never smoker alcohol intake: [...] acute distress, well developed and well groomed HENCT Head: normal to inspection and normocephalic Ears: hearing grossly normal bilaterally and external ears normal Nose: external nose normal Face and sinus: normal facial exam Neck Neck: normal visual inspection, full ROM and no lymphadenopathy Thyroid: thyroid normal Chest Chest palpation inspection (more content not included)... Normal [facility] Pathologist Cyto stain Nom ( Cvx/Vag) [ID]Ordered By: Rand Melgar on 08-08-2024 Pap Smear Signed Out By Comment . [facility] Comment on above: Franco Newton MD, Pa thologist Pathology report final diagn osis NarrativeOrdered By: Rand Melgar on 08-08-2024 Pap Smear Comment (2) Comment . [facility] Comment on above: R87.612 Recommended follow-up Cyto s tain Nom (Cvx/Vag)Ordered By: Rand Melgar on 08-08-2024 Pap Smear Recommendation Comment High . [facility] Comment on above: Suggest follow up as clinically appropriate. Service comment (Unsp spec) [Interp]Ordered By: Rand Melgar on 08-08-2024 Pap Smear Comment (3) . . [facility] Chest PA and Lateralon 08-05 Chest PA and Lateral [facility] Imaging Services [address] [place] [address] Chest PA and Lateral MR#: [id number] Acct: [id number] Name: JENNIFER ZULETA Rep #: [id number] : 1955 F 69 From: Carlos Macias MD PCP: Dr. Edel Nickerson MD Status: REG CL Study: Chest PA and Lateral Date of Exam: 08/05/24 Exam# [id number] Ordering Dr: Piotr Bond ADULT LIVE IN CAREGIVER ADULT LIVE IN CAREGIVER -C :[id number] STUDY: X-RAY CHEST REASON FOR EXAM: Female, [...] MD at 22:01 EST , CC: Piotr MARRUFO McMorrow; Dr. Edel Nickerson MD Roll Wrapper: Signed Normal [facility] Basic Metabolic Profile (BMP )on 07-23-2024 BUN/CRE 29.0 RATIO High 10-20 [facility] Comment on above: Order Comment: start ing Lisinopril Performed By: #### L 500.2500 #### [facility] [address] [place], [address] CA,Total 9.2 mg/dL Normal 8.5-10.1 [facility] Comment on above: Order Comment: start ing Lisinopril Performed By: #### L 500.2500 #### [facility] [address] [place], [address] Chloride [Moles/Vol] 101 mmol/L Normal 98-107 [facility] Comment on above: Order Comment: start ing Lisinopril Performed By: #### L 500.2500 #### [facility] [address] [place], [address] CO2 [Moles/Vol] 28.0 mmol/L Normal 21.0-32.0 [facility] Comment on above: Order Comment: start ing Lisinopril Performed By: #### L 500.2500 #### [facility] [address] [place], [address] Creatinine [Mass/Vol] 0.86 mg/dL Normal 0.55-1.02 [facility] Comment on above: Order Comment: start ing Lisinopril Result Comment: The validity of the calculated GFR GFRAA in patients over 70 years has not been determined. Clinical correlation is essential. Performed By: #### L 500.2500 #### [facility] [address] [place], [address] EST GFR - AA 84 mL/min Normal >60 [facility] Comment on above: Order Comment: start ing Lisinopril Result Comment: Afri can Panamanian GFR Calc Performed By: #### L 500.2500 #### [facility] [address] [place], [address] GAP 7 Normal 5-15 [facility] Comment on above: Order Comment: start ing Lisinopril Performed By: #### L 500.2500 #### [facility] [address] [place], [address] GFR/1.73 sq M.predicted among non-blacks MDRD (S/P/Bld) [Vol rate/Area] 69 mL/min/{1.73_m2} Normal >60 [facility] Comment on above: Order Comment: start ing Lisinopril Result Comment: Non- GFR Calc Performed By: #### L 500.2500 #### [facility] [address] [place], [address] Glucose [Mass/Vol] 92 mg/dL Normal 74-[address] [facility] Comment on above: Order Comment: start ing Lisinopril Performed By: #### L 500.2500 #### [facility] [address] [place], [address] Potassium [Moles/Vol] 4.2 mmol/L Normal 3.5-5.1 [facility] Comment on above: Order Comment: start ing Lisinopril Performed By: #### L 500.2500 #### [facility] [address] [place], [address] Sodium [Moles/Vol] 136 mmol/L Normal 136-[address] [facility] Comment on above: Order Comment: start ing Lisinopril Performed By: #### L 500.2500 #### [facility] [address] [place], [place], [address] Urea nitrogen [Mass/Vol] 25 mg/dL High 7-18 [facility] Comment on above: Order Comment: start ing Lisinopril Performed By: #### L 500.2500 #### [facility] [address] [place], [place], [address] Blood urea nitrogen (BUN)/cr eatinine ratioOrdered By: Sascha Salazar on 07-23-2024 Urea nitrogen/Creatinine [Mass ratio] 29.0 mg/mg High 10-20 [facility] Carbon dioxide measurementOr dered By: Sascha Salazar on 07-23-2024 CO2 [Moles/Vol] 28.0 mmol/L 21.0-32.0 [facility] Chloride measurementOrdered By: Sascha Salazar on 07-23-2024 Chloride [Moles/Vol] 101 mmol/L 98-107 [facility] Estimated glomerular filtrat ion rate (GFR) AmericanOrdered By: Sascha Salazar on 07-23-2024 Estimated GFR (MDRD) Amer 84 mL/min >60 [facility] Comment on above: GFR Calc Glomerular filtration rate ( GFR) estimationOrdered By: Sascha Salazar on 07-23-2024 Estimated GFR (MDRD) Non-Af Amer 69 mL/min >60 [facility] Comment on above: Non- GFR Calc Glucose measurementOrdered B y: Sascha Salazar on 07-23-2024 Glucose [Mass/Vol] 92 mg/dL 74-[address] [facility] Potassium measurementOrdered By: Sascha Salazar on 07-23-2024 Potassium [Moles/Vol] 4.2 mmol/L 3.5-5.1 [facility] Serum anion gap measurementO rdered By: Sascha Salazar on 07-23-2024 Anion gap [Moles/Vol] 7 mmol/L 5-15 [facility] Serum or plasma calcium ash urement (mass/volume)Ordered By: Sascha Salazar on 07-23-2024 Calcium [Mass/Vol] 9.2 mg/dL 8.5-10.[address] [facility] Serum or plasma creatinine m easurement (mass/volume)Ordered By: Sascha Salazar on 07-23-2024 Creatinine [Mass/Vol] 0.86 mg/dL 0.55-1.02 [facility] Comment on above: The validity of the calculated GFR & GFRAA in patients over 70 years has not been determined. Clinical correlation is essential. Serum or plasma urea nitroge n measurement (mass/volume)Ordered By: Sascha Salazar on 07-23-2024 Urea nitrogen [Mass/Vol] 25 mg/dL High - [facility] Sodium levelOrdered By: Sascha Salazar on 07-23-2024 Sodium [Moles/Vol] 136 mmol/L 136-[address] [facility] 12 Lead EKG performed by [facility] on 06-24-2024 12 Lead EKG performed by [address] [address] 12 Lead EKG performed by [facility] 06/24/24 1111 MR#: [id number] Acct: [id number] Name: JENNIFER ZULETA Rep #: [id number] : 1955 69 From: Vesna Hernandez MD Attending Dr: Dr. Vesna Hernandez MD Status: DEP AMB Ordering Dr: Vesna Hernandez MD Date: 06/24/24 [place] [facility] [place] F C Admitted: BMS/12 Lead EKG performed by [facility] ECG Report Interpretation Si nus Rhythm WITHIN NORMAL LIMITSElectronically signed on 09/01/2024 at 11:[address] Vesna Hernandez [employer] Version 8610 09/01/24 1120 Date Vesna Hernandez MD CC: Dr. Edel Nickerson MD Date Dictated: 06/24/24 1111 Date Transcribed: 06/24/24 1111 Roll Wrapper: MARY Signed Normal [facility] Cardiology Visit Reporton Cardiology Visit Report [facility] [address] [place] [address] OFFICE VISIT Date of Service: 06/24/24 MR#: [id number] Acct: [id number] Name: JENNIFER ZULETA Rep #: [id number] : 1955 Provider: Dr. Vesna Hernandez MD Age/Sex: 69/F Location: [facility] Status: Signed HPI HPI History of Present [...] Pulse Source NIBP Intake Visit Reasons: S/P [facility] 05/30 ([facility] ER) Test Operator Required: No Accompanied by: Friend Is patient [...] .COMPLEX 05/30/24 06/24/24 Rx a dose pack (Cassia DVT-PE Treat #74 tabs 30D Start) Ejection fraction %: 65 Have you fallen in the past year?: Yes (multiple falls; no major injuries) PFSH Medical History Bunion Concussion GERD (gastroesophageal reflux [...] 2 current occupational status: employed current occupation: [employer] Smoking Status: Never smoker alcohol intake: current [...] technically diffi (more content not included)... Normal [facility] CBC W/Diff, Automatedon 10-3 Absolute Lymph 2.12 X10 3/uL Normal 0.83-4.51 [facility] Comment on above: Order Comment: Order Date: 06/05/24Order Info: 0184-1 - CBCD Performed By: #### L 100.0100, L503.6030, L503.6550 ####[facility] [address] [place], [address] Absolute Neut 2.8 X10 3/uL Normal 2.0-7.7 [facility] Comment on above: Order Comment: Order Date: 06/05/24Order Info: 0184-1 - CBCD Performed By: #### L 100.0100, L503.6030, L503.6550 ####[facility] [address] [place], [address] Basophils/100 WBC (Bld) 0.9 % Normal 0-1 [facility] Comment on above: Order Comment: Order Date: 06/05/24Order Info: 0184-1 - CBCD Performed By: #### L 100.0100, L503.6030, L503.6550 ####[facility] [address] [place], [address] Eosinophils/100 WBC (Bld) 2.6 % Normal 0-5 [facility] Comment on above: Order Comment: Order Date: 06/05/24Order Info: 0184-1 - CBCD Performed By: #### L 100.0100, L503.6030, L503.6550 ####[facility] [address] [place], [address] Erythrocyte distribution width (RBC) [Ratio] 12.9 % Normal 11.6-14.6 [facility] Comment on above: Order Comment: Order Date: 06/05/24Order Info: 183-1 - CBCD Performed By: #### L 100.0100, L503.6030, L503.6550 ####[facility] [address] [place], [address] Hematocrit (Bld) [Volume fraction] 40.1 % Normal 37-47 [facility] Comment on above: Order Comment: Order Date: 06/05/24Order Info: 183- - CBCD Performed By: #### L 100.0100, L503.6030, L503.6550 ####[facility] [address] [place], [address] Hemoglobin (Bld) [Mass/Vol] 13.0 g/dL Normal 12.0-15.0 [facility] Comment on above: Order Comment: Order Date: 06/05/24Order Info: 183- - CBCD Performed By: #### L 100.0100, L503.6030, L503.6550 ####[facility] [address] [place], [address] IG% 0.000 Normal 0.0-0.9 [facility] Comment on above: Order Comment: Order Date: 06/05/24Order Info: 018-1 - CBCD Result Comment: IG% - Immature Granulocytes (promyelocytes, myelocytes and metamyelocytes) > 1% indicates that a LEFT SHIFT is Present. Performed By: #### L 100.0100, L503.6030, L503.6550 ####[facility] [address] [place], [address] Lymphocytes/100 WBC (Bld) 38.9 % Normal 19-41 [facility] Comment on above: Order Comment: Order Date: 06/05/24Order Info: 183- - CBCD Performed By: #### L 100.0100, L503.6030, L503.6550 ####[facility] [address] [place], [address] MCH (RBC) [Entitic mass] 30.2 pg Normal 27.0-32.0 [facility] Comment on above: Order Comment: Order Date: 06/05/24Order Info: 183- - CBCD Performed By: #### L 100.0100, L503.6030, L503.6550 ####[facility] [address] [place], [address] MCHC (RBC) [Mass/Vol] 32.4 g/dL Normal 32-36 [facility] Comment on above: Order Comment: Order Date: 06/05/24Order Info: 183- - CBCD Performed By: #### L 100.0100, L503.6030, L503.6550 ####[facility] [address] [place], [address] MCV (RBC) [Entitic vol] 93.3 fL Normal 81-99 [facility] Comment on above: Order Comment: Order Date: 06/05/24Order Info: 183- - CBCD Performed By: #### L 100.0100, L503.6030, L503.6550 ####[facility] [address] [place], [address] Monocytes/100 WBC (Bld) 6.6 % Normal 0-10 [facility] Comment on above: Order Comment: Order Date: 06/05/24Order Info: 4-1 - CBCD Performed By: #### L 100.0100, L503.6030, L503.6550 ####[facility] [address] [place], [address] Neutrophils/100 WBC (Bld) 51.0 % Normal 47-70 [facility] Comment on above: Order Comment: Order Date: 06/05/24Order Info: 183-1 - CBCD Performed By: #### L 100.0100, L503.6030, L503.6550 ####[facility] [address] [place], [address] Nucleated RBC (Bld) [#/Vol] 0 10*3/uL Normal 0-5 [facility] Comment on above: Order Comment: Order Date: 06/05/24Order Info: 183- - CBCD Performed By: #### L 100.0100, L503.6030, L503.6550 ####[facility] [address] [place], [address] Platelet mean volume (Bld) [Entitic vol] 9.8 fL Normal 6.2-12.0 [facility] Comment on above: Order Comment: Order Date: 06/05/24Order Info: 018- - CBCD Performed By: #### L 100.0100, L503.6030, L503.6550 ####[facility] [address] [place], [address] Platelets (Bld) [#/Vol] 306 10*3/uL Normal 150-450 [facility] Comment on above: Order Comment: Order Date: 06/05/24Order Info: 018- - CBCD Performed By: #### L 100.0100, L503.6030, L503.6550 ####[facility] [address] [place], [address] RBC (Bld) [#/Vol] 4.30 10*6/uL Normal 4.2-5.4 [facility] Comment on above: Order Comment: Order Date: 06/05/24Order Info: 018-1 - CBCD Performed By: #### L 100.0100, L503.6030, L503.6550 ####[facility] [address] [place], [address] RDW SD 44.1 fl High 35.1-43.9 [facility] Comment on above: Order Comment: Order Date: 06/05/24Order Info: 0184- - CBCD Performed By: #### L 100.0100, L503.6030, L503.6550 ####[facility] [address] [place], [address] WBC (Bld) [#/Vol] 5.5 10*3/uL Normal 4.4-11.[address] [facility] Comment on above: Order Comment: Order Date: 06/05/24Order Info: 018- - CBCD Performed By: #### L 100.0100, L503.6030, L503.6550 ####[facility] [address] [place], [address] Ferritinon 06-05-2024 Ferritin [Mass/Vol] 81 ng/mL Normal 8-252 [facility] Comment on above: Order Comment: Order Date: 06/05/24Order Info: 57605-7 - IBCOrder Info: 2276-4 - SALLY Performed By: #### L 100.0100, L503.6030, L503.6550 ####[facility] [address] [place], [address] Iron+Iron Binding Capacityon 06-05-2024 Iron [Mass/Vol] 85 ug/dL Normal 50-170 [facility] Comment on above: Order Comment: Order Date: 06/05/24Order Info: 53671-6 - IBCOrder Info: 2276-4 - SALLY Performed By: #### L 100.0100, L503.6030, L503.6550 ####[facility] [address] [place], [address] IRON SATURATION 25.4 Normal 15.0-55.0 [facility] Comment on above: Order Comment: Order Date: 06/05/24Order Info: 40781-8 - IBCOrder Info: 2275-11 - SALLY Performed By: #### L 100.0100, L503.6030, L503.6550 ####[facility] [address] [place], [address] TIBC 335 ug/dL Normal 250-450 [facility] Comment on above: Order Comment: Order Date: 06/05/24Order Info: 32863-8 - IBCOrder Info: 2275-11 - SALLY Performed By: #### L 100.0100, L503.6030, L503.6550 ####[facility] [address] [place], [address] CBC W/Diff, Automatedon 10-2 5-2023 Absolute Lymph 2.73 X10 3/uL Normal 0.83-4.51 [facility] Comment on above: Performed By: #### P SUIV #### [facility] [address] [place], [address] Absolute Neut 2.3 X10 3/uL Normal 2.0-7.7 [facility] Comment on above: Performed By: #### P SUIV #### [facility] [address] [place], [address] Basophils/100 WBC (Bld) 0.9 % Normal 0-1 [facility] Comment on above: Performed By: #### P SUIV #### [facility] [address] [place], [address] Eosinophils/100 WBC (Bld) 3.0 % Normal 0-5 [facility] Comment on above: Performed By: #### P SUIV #### [facility] [address] [place], [address] Erythrocyte distribution width (RBC) [Ratio] 12.7 % Normal 11.6-14.6 [facility] Comment on above: Performed By: #### P SUIV #### [facility] [address] [place], [address] Hematocrit (Bld) [Volume fraction] 37.0 % Normal 37-47 [facility] Comment on above: Performed By: #### P SUIV #### [facility] [address] [place], [address] Hemoglobin (Bld) [Mass/Vol] 12.4 g/dL Normal 12.0-15.0 [facility] Comment on above: Performed By: #### P SUIV #### [facility] [address] [place], [address] IG% 0.200 Normal 0.0-0.9 [facility] Comment on above: Result Comment: IG% - Immature Granulocytes (promyelocytes, myelocytes and metamyelocytes) > 1% indicates that a LEFT SHIFT is Present. Performed By: #### P SUIV #### [facility] [address] [place], [address] Lymphocytes/100 WBC (Bld) 48.4 % High 19-41 [facility] Comment on above: Performed By: #### P SUIV #### [facility] [address] [place], [address] MCH (RBC) [Entitic mass] 31.0 pg Normal 27.0-32.0 [facility] Comment on above: Performed By: #### P SUIV #### [facility] [address] [place], [address] MCHC (RBC) [Mass/Vol] 33.5 g/dL Normal 32-36 [facility] Comment on above: Performed By: #### P SUIV #### [facility] [address] [place], [address] MCV (RBC) [Entitic vol] 92.5 fL Normal 81-99 [facility] Comment on above: Performed By: #### P SUIV #### [facility] [address] [place], [address] Monocytes/100 WBC (Bld) 6.6 % Normal 0-10 [facility] Comment on above: Performed By: #### P SUIV #### [facility] [address] [place], [address] Neutrophils/100 WBC (Bld) 40.9 % Low 47-70 [facility] Comment on above: Performed By: #### P SUIV #### [facility] [address] [place], [address] Nucleated RBC (Bld) [#/Vol] 0 10*3/uL Normal 0-5 [facility] Comment on above: Performed By: #### P SUIV #### [facility] [address] [place], [address] Platelet mean volume (Bld) [Entitic vol] 9.3 fL Normal 6.2-12.0 [facility] Comment on above: Performed By: #### P SUIV #### [facility] [address] [place], [address] Platelets (Bld) [#/Vol] 325 10*3/uL Normal 150-450 [facility] Comment on above: Performed By: #### P SUIV #### [facility] [address] [place], [address] RBC (Bld) [#/Vol] 4.00 10*6/uL Low 4.2-5.4 [facility] Comment on above: Performed By: #### P SUIV #### [facility] [address] [place], [address] RDW SD 42.9 fl Normal 35.1-43.9 [facility] Comment on above: Performed By: #### P SUIV #### [facility] [address] [place], [address] WBC (Bld) [#/Vol] 5.6 10*3/uL Normal 4.4-11.[address] [facility] Comment on above: Performed By: #### P SUIV #### [facility] [address] [place], [address] Comprehensive Metabolic Prof ilon 05-30-2024 Albumin [Mass/Vol] 3.5 g/dL Normal 3.2-5.[address] [facility] Comment on above: Performed By: #### L 100.0100, L500.4050, L501.2300, L501.5200 ####[facility] [address] [place], [address] Albumin/Globulin [Mass ratio] 0.9 {ratio} Normal 0.9-2.4 [facility] Comment on above: Performed By: #### L 100.0100, L500.4050, L501.2300, L501.5200 ####[facility] [address] [place], [address] ALK P 76 U/L Normal 45-117 [facility] Comment on above: Performed By: #### L 100.0100, L500.4050, L501.2300, L501.5200 ####[facility] [address] [place], [address] ALT [Catalytic activity/Vol] 14 U/L Normal 13-56 [facility] Comment on above: Performed By: #### L 100.0100, L500.4050, L501.2300, L501.5200 ####[facility] [address] [place], [address] AST [Catalytic activity/Vol] 12 U/L Low 15-37 [facility] Comment on above: Performed By: #### L 100.0100, L500.4050, L501.2300, L501.5200 ####[facility] [address] [place], [address] Bilirubin [Mass/Vol] 0.50 mg/dL Normal 0.20-1.00 [facility] Comment on above: Result Comment: For patients on eltrombopag therapy, use of Dimension [place] TBIL is not recommended. Performed By: #### L 100.0100, L500.4050, L501.2300, L501.5200 ####[facility] [address] [place], [address] BUN/CRE 24.4 RATIO High 10-20 [facility] Comment on above: Performed By: #### L 100.0100, L500.4050, L501.2300, L501.5200 ####[facility] [address] [place], [address] CA,Total 8.8 mg/dL Normal 8.5-10.1 [facility] Comment on above: Performed By: #### L 100.0100, L500.4050, L501.2300, L501.5200 ####[facility] [address] [place], [address] Chloride [Moles/Vol] 110 mmol/L High 98-107 [facility] Comment on above: Performed By: #### L 100.0100, L500.4050, L501.2300, L501.5200 ####[facility] [address] [place], [address] CO2 [Moles/Vol] 25.0 mmol/L Normal 21.0-32.0 [facility] Comment on above: Performed By: #### L 100.0100, L500.4050, L501.2300, L501.5200 ####[facility] [address] [place], [address] Creatinine [Mass/Vol] 0.57 mg/dL Normal 0.55-1.02 [facility] Comment on above: Result Comment: The validity of the calculated GFR GFRAA in patients over 70 years has not been determined. Clinical correlation is essential. Performed By: #### L 100.0100, L500.4050, L501.2300, L501.5200 ####[facility] [address] [place], [address] ECRCL 63.47 ml/min Normal [facility] Comment on above: Performed By: #### L 100.0100, L500.4050, L501.2300, L501.5200 ####[facility] [address] [place], [address] EST GFR - AA 134 mL/min Normal >60 [facility] Comment on above: Result Comment: Afri can Panamanian GFR Calc Performed By: #### L 100.0100, L500.4050, L501.2300, L501.5200 ####[facility] [address] [place], [address] GAP 6 Normal 5-15 [facility] Comment on above: Performed By: #### L 100.0100, L500.4050, L501.2300, L501.5200 ####[facility] [address] [place], [address] GFR/1.73 sq M.predicted among non-blacks MDRD (S/P/Bld) [Vol rate/Area] 111 mL/min/{1.73_m2} Normal >60 [facility] Comment on above: Result Comment: Non- GFR Calc Performed By: #### L 100.0100, L500.4050, L501.2300, L501.5200 ####[facility] [address] [place], [address] Globulin (S) [Mass/Vol] 3.9 g/dL Normal 2.2-4.2 [facility] Comment on above: Performed By: #### L 100.0100, L500.4050, L501.2300, L501.5200 ####[facility] [address] [place], [address] Glucose [Mass/Vol] 104 mg/dL Normal 74-[address] [facility] Comment on above: Result Comment: Fast ing Glucose result from 100 to 125 mg/dL suggests IMPAIRED HOMEOSTASIS per A.D.A. criteria. Performed By: #### L 100.0100, L500.4050, L501.2300, L501.5200 ####[facility] [address] [place], [address] Potassium [Moles/Vol] 4.0 mmol/L Normal 3.5-5.1 [facility] Comment on above: Performed By: #### L 100.0100, L500.4050, L501.2300, L501.5200 ####[facility] [address] [place], [address] Sodium [Moles/Vol] 141 mmol/L Normal 136-[address] [facility] Comment on above: Performed By: #### L 100.0100, L500.4050, L501.2300, L501.5200 ####[facility] [address] [place], [address] T PROT 7.4 g/dL Normal 6.4-8.2 [facility] Comment on above: Performed By: #### L 100.0100, L500.4050, L501.2300, L501.5200 ####[facility] [address] [place], [address] Urea nitrogen [Mass/Vol] 14 mg/dL Normal 7-18 [facility] Comment on above: Performed By: #### L 100.0100, L500.4050, L501.2300, L501.5200 ####[facility] [address] [place], [address] Magnesiumon 05-30-2024 Magnesium [Mass/Vol] 2.0 mg/dL Normal 1.6-2.6 [facility] Comment on above: Performed By: #### L 100.0100, L500.4050, L501.2300, L501.5200 ####[facility] [address] [place], [address] Phosphoruson 05-30-2024 Phosphate [Mass/Vol] 4.2 mg/dL Normal 2.5-4.9 [facility] Comment on above: Performed By: #### L 100.0100, L500.4050, L501.2300, L501.5200 ####[facility] [address] [place], [address] Thyroid Stim Hormone (TSH)on 05-30-2024 TSH 1.110 uIU/mL Normal 0.358-3.74 0 [facility] Comment on above: Performed By: #### P SUIV #### [facility] [address] [place], [address] Urinalysis, Completeon 05-30 BACTERIA 1+ /hpf Normal None Seen [facility] Comment on above: Order Comment: Urine , Random Performed By: #### L 400.0001 ####[facility] [address] [place], [address] EPI,SQUAMOUS 5-10 SEEN Normal 5-10 [facility] Comment on above: Order Comment: Urine , Random Performed By: #### L 400.0001 ####[facility] [address] [place], [address] RBC 10-25 SEEN Normal 0-5 [facility] Comment on above: Order Comment: Urine , Random Performed By: #### L 400.0001 ####[facility] [address] [place], [address] WBC 5-10 SEEN Normal 0-5 [facility] Comment on above: Order Comment: Urine , Random Performed By: #### L 400.0001 ####[facility] [address] [place], [address] Mucus Ql (Urine sed) 0 SEEN Normal [facility] Comment on above: Order Comment: Urine , Random Performed By: #### L 400.0001 ####[facility] [address] [place], [address] 12 Lead EKGon 05-29-2024 12 Lead EKG [facility] [address] [place] [address] 12 Lead EKG 05/29/242027 MR#: [id number] Acct: [id number] Name: JENNIFER ZULETA Rep #: [id number] : 1955 69 From: Tyler Gupta MD Attending Dr: Dr. Danni So DO Status: ADM I N Ordering Dr: Kathy Fairbanks DO Date: 05/29/24 Location: [facility] Sex: F C Admitted: 05/29/24 Test Reason : PALPS Blood Pressure : / mmHG Vent. Rate : 070 BPM Atrial Rate : 070 BPM P-R Int : 178 ms QRS Dur : 076 ms QT Int : 414 ms P-R-T Axes : 050 011 030 degrees QTc Int : 447 ms Normal sinus rhythm Normal ECG Confirmed by TYLER GUPTA MD ([id number]), scientific editor BETTY FERGUSON ([id number]) on 05/30/2024 10:01:16 AM Referred By: CG Confirmed By:TYLER GUPTA MD 05/30/24 1001 Date Tyler Gupta MD CC: Dr. Edel Nickerson MD; Dr. Kathy Fairbanks DO; Dr. Danni So DO Signed Normal [facility] BNP,B-Type NATRIURETIC PEPTI Keyonna 05-29-2024 Natriuretic peptide B (Bld) [Mass/Vol] 13.7 pg/mL Normal 0-100 [facility] Comment on above: Performed By: #### L 503.6620 #### [facility] [address] [place], [address] Basic Metabolic Profile (BMP )on 05-29-2024 BUN/CRE 26.9 RATIO High 10- [facility] Comment on above: Order Comment: 'TROP ' Serial specimen #1, #2 or #3: 1 Performed By: #### P SUIV #### [facility] [address] [place], [address] CA,Total 9.1 mg/dL Normal 8.5-10.1 [facility] Comment on above: Order Comment: 'TROP ' Serial specimen #1, #2 or #3: 1 Performed By: #### P SUIV #### [facility] [address] [place], [address] Chloride [Moles/Vol] 107 mmol/L Normal 98-107 [facility] Comment on above: Order Comment: 'TROP ' Serial specimen #1, #2 or #3: 1 Performed By: #### P SUIV #### [facility] [address] [place], [address] CO2 [Moles/Vol] 24.0 mmol/L Normal 21.0-32.0 [facility] Comment on above: Order Comment: 'TROP ' Serial specimen #1, #2 or #3: 1 Performed By: #### P SUIV #### [facility] [address] [place], [address] Creatinine [Mass/Vol] 0.63 mg/dL Normal 0.55-1.02 [facility] Comment on above: Order Comment: 'TROP ' Serial specimen #1, #2 or #3: 1 Result Comment: The validity of the calculated GFR GFRAA in patients over 70 years has not been determined. Clinical correlation is essential. Performed By: #### P SUIV #### [facility] [address] [place], [address] ECRCL 63.59 ml/min Normal [facility] Comment on above: Order Comment: 'TROP ' Serial specimen #1, #2 or #3: 1 Performed By: #### P SUIV #### [facility] [address] [place], [address] EST GFR - AA 119 mL/min Normal >60 [facility] Comment on above: Order Comment: 'TROP ' Serial specimen #1, #2 or #3: 1 Result Comment: Afri can Panamanian GFR Calc Performed By: #### P SUIV #### [facility] [address] [place], [address] GAP 7 Normal 5-15 [facility] Comment on above: Order Comment: 'TROP ' Serial specimen #1, #2 or #3: 1 Performed By: #### P SUIV #### [facility] [address] [place], [address] GFR/1.73 sq M.predicted among non-blacks MDRD (S/P/Bld) [Vol rate/Area] 99 mL/min/{1.73_m2} Normal >60 [facility] Comment on above: Order Comment: 'TROP ' Serial specimen #1, #2 or #3: 1 Result Comment: Non- GFR Calc Performed By: #### P SUIV #### [facility] [address] [place], [address] Glucose [Mass/Vol] 99 mg/dL Normal 74-[address] [facility] Comment on above: Order Comment: 'TROP ' Serial specimen #1, #2 or #3: 1 Performed By: #### P SUIV #### [facility] [address] [place], [address] Potassium [Moles/Vol] 3.7 mmol/L Normal 3.5-5.1 [facility] Comment on above: Order Comment: 'TROP ' Serial specimen #1, #2 or #3: 1 Performed By: #### P SUIV #### [facility] [address] [place], [address] Sodium [Moles/Vol] 138 mmol/L Normal 136-[address] [facility] Comment on above: Order Comment: 'TROP ' Serial specimen #1, #2 or #3: 1 Performed By: #### P SUIV #### [facility] [address] [place], [address] Urea nitrogen [Mass/Vol] 17 mg/dL Normal 7-18 [facility] Comment on above: Order Comment: 'TROP ' Serial specimen #1, #2 or #3: 1 Performed By: #### P SUIV #### [facility] [address] [place], [address] CBC W/Diff, Automatedon 10-2 -2023 Absolute Lymph 2.69 X10 3/uL Normal 0.83-4.51 [facility] Comment on above: Performed By: #### P SUIV #### [facility] [address] [place], [address] Absolute Neut 3.2 X10 3/uL Normal 2.0-7.7 [facility] Comment on above: Performed By: #### P SUIV #### [facility] [address] [place], [address] Basophils/100 WBC (Bld) 0.8 % Normal 0-1 [facility] Comment on above: Performed By: #### P SUIV #### [facility] [address] [place], [address] Eosinophils/100 WBC (Bld) 1.7 % Normal 0-5 [facility] Comment on above: Performed By: #### P SUIV #### [facility] [address] [place], [address] Erythrocyte distribution width (RBC) [Ratio] 12.6 % Normal 11.6-14.6 [facility] Comment on above: Performed By: #### P SUIV #### [facility] [address] [place], [address] Hematocrit (Bld) [Volume fraction] 36.3 % Low 37-47 [facility] Comment on above: Performed By: #### P SUIV #### [facility] [address] [place], [address] Hemoglobin (Bld) [Mass/Vol] 12.4 g/dL Normal 12.0-15.0 [facility] Comment on above: Performed By: #### P SUIV #### [facility] [address] [place], [address] IG% 0.300 Normal 0.0-0.9 [facility] Comment on above: Result Comment: IG% - Immature Granulocytes (promyelocytes, myelocytes and metamyelocytes) > 1% indicates that a LEFT SHIFT is Present. Performed By: #### P SUIV #### [facility] [address] [place], [address] Lymphocytes/100 WBC (Bld) 41.7 % High 19-41 [facility] Comment on above: Performed By: #### P SUIV #### [facility] [address] [place], [address] MCH (RBC) [Entitic mass] 31.2 pg Normal 27.0-32.0 [facility] Comment on above: Performed By: #### P SUIV #### [facility] [address] [place], [address] MCHC (RBC) [Mass/Vol] 34.2 g/dL Normal 32-36 [facility] Comment on above: Performed By: #### P SUIV #### [facility] [address] [place], [address] MCV (RBC) [Entitic vol] 91.2 fL Normal 81-99 [facility] Comment on above: Performed By: #### P SUIV #### [facility] [address] [place], [address] Monocytes/100 WBC (Bld) 5.4 % Normal 0-10 [facility] Comment on above: Performed By: #### P SUIV #### [facility] [address] [place], [address] Neutrophils/100 WBC (Bld) 50.1 % Normal 47-70 [facility] Comment on above: Performed By: #### P SUIV #### [facility] [address] [place], [address] Nucleated RBC (Bld) [#/Vol] 0 10*3/uL Normal 0-5 [facility] Comment on above: Performed By: #### P SUIV #### [facility] [address] [place], [address] Platelet mean volume (Bld) [Entitic vol] 9.0 fL Normal 6.2-12.0 [facility] Comment on above: Performed By: #### P SUIV #### [facility] [address] [place], [address] Platelets (Bld) [#/Vol] 328 10*3/uL Normal 150-450 [facility] Comment on above: Performed By: #### P SUIV #### [facility] [address] [place], [address] RBC (Bld) [#/Vol] 3.98 10*6/uL Low 4.2-5.4 [facility] Comment on above: Performed By: #### P SUIV #### [facility] [address] [place], [address] RDW SD 41.8 fl Normal 35.1-43.9 [facility] Comment on above: Performed By: #### P SUIV #### [facility] [address] [place], [address] WBC (Bld) [#/Vol] 6.5 10*3/uL Normal 4.4-11.[address] [facility] Comment on above: Performed By: #### P SUIV #### [facility] [address] [place], [place], [id number] CTA Chest W/WO Contraston CTA Chest W/WO Contrast [facility] Imaging Services [address] [place], [place] [address] CTA Chest W/WO Contrast MR#: [id number] Acct: [id number] Name: JENNIFER ZULETA Rep #: [id number] : 1955 F 69 From: Carlos Carrasco PCP: Dr. Edel Nickerson MD Status: [facility] Study: CTA Chest W/WO Contrast Date of Exam: 05/29/24 Exam# [id number] Ordering Dr: Edel Nickerson MD ADDENDUM by Dr. Carlos Pollard MD on 05/29/24 at 1737 :[id number] STUDY: CTA CHEST REASON FOR EXAM: Female, [...] Pollard MD at 17:33 EDT , 05/29/24 173 Date cc: Dr. Edel Nickerson MD * Signed ADDENDUM by Dr. Carlos Pollard MD on 05/29/[address]/CTA Chest W/WO Contrast IMPRESSION: undefined 05/29/24 1804 Date cc: Dr. Edel Nickerson MD * Signed We are attempting to reach an attending provider to discuss findings. An addendum with communication details will be sent when the communication is complete. :[id number] STUDY: CTA CHEST REASON FOR EXAM: Female, [...] extending in (more content not included)... Normal [facility] Echo Complete W/ Contraston 05-29-2024 Echo Complete W/ Contrast [facility] [address] [place] [address] Echo Complete W/ Contrast 05/30/24 0817 MR#: [id number] Acct: [id number] Name: JENNIFER ZULETA DANNI Rep #: [id number] : 1955 69 From: Tyler Gupta MD Attending Dr: Dr. Danni So DO Status: ADM I N Ordering Dr: Haroldo Liu DO Date: 05/29/24 Location: U Sex: F C Admitted: 05/29/24 Reason For [...] Physician: Edel Nickerson Performed By: Josefina Jones, NATE, RVT 05/30/241048 Date Tyler Gupta MD CC: Dr. Edel Nickerson MD; Dr. Haroldo Liu DO; Dr. Danni So DO Date Dictated: 05/30/24816 Date Transcribed: 05/30/241048 Roll Wrapper: Signed [facility] Emergency Department Summary on 05-29-2024 Emergency Department Summary [facility] Medical Records Department [address] [place] [address] Emergency Department Summary 05/29/24 MR#: [id number] Acct: [id number] Name: JENNIFER ZULETA Rep #: [id number] : 1955 69 From: Kathy Fairbanks DO PCP: Dr. Edel Nickerson MD Status:ADM IN Location: [address] History of Present Illness Chief Complaint: Shortness of Breath Informant: patient Narrative Narrative: Patient is a 69-year-old female who had right shoulder replacement at [facility] earlier this month. She states for the [...] complaints or concerns reported at this time. [facility] Medical History Urgency of urination Right wrist [...] 2 current occupational status: employed current occupation: [employer] Smoking Status: Never smoker alcohol intake: current [...] extremities ap (more content not included)... Normal [facility] H AND P Exam - Hospitaliston 05-29-2024 H&P Exam - Hospitalist [facility] Medical Records Department [address] [place] [address] H P Exam - Hospitalist 05/29/24 2200 MR#: [id number] Acct: [id number] Name: JENNIFER ZULETA Rep #: [id number] : 1955 69 From: Haroldo Liu DO PCP: Dr. Edel Nickerson MD Status:ADM IN Location: [place] [address] HPI - [facility] General Date of Admission: 05/29/24 Date of Service: 05/29/24 Chief Complaint: SOB. 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 Ms. Zuleta reports [...] is expected to extend beyond 2 midnights. [facility] Medical History Urgency of urination Right wrist [...] 2 current occupational status: employed current occupation: [employer] Smoking Status: Never smoker alcohol intake: current [...] positives note (more content not included)... Normal [facility] L501.4020on 05-29-2024 TROPONIN-I HS 110 pg/mL High 3.0-54.0 [facility] Comment on above: Order Comment: 'TROP ' Serial specimen #1, #2 or #3: 2 Result Comment: Plea se Note: New Test Units and Gender Specific Reference Ranges. For more information see Policy Stat Procedure Piggott High Sensitivity Troponin (TNIH) and attachments. Performed By: #### L 501.4020 ####[facility] [address] [place], [address] TROPONIN-I HS 107 pg/mL High 3.0-54.0 [facility] Comment on above: Order Comment: 'TROP ' Serial specimen #1, #2 or #3: 1 Result Comment: Plea se Note: New Test Units and Gender Specific Reference Ranges. For more information see Policy Stat Procedure Piggott High Sensitivity Troponin (TNIH) and attachments. Performed By: #### P SUIV #### [facility] [address] [place], [address] Partial Thromboplast Timeon 05-29-2024 aPTT Coag (Bld) [Time] 25.4 s Normal 24.1-36.2 [facility] Comment on above: Performed By: #### P SUIV #### [facility] [address] [place], [address] Prothrombin Time w/INRon - INR Coag (PPP) [Relative time] 1.1 {INR} Normal [facility] Comment on above: Performed By: #### P SUIV #### [facility] [address] [place], [address] PT Coag (PPP) [Time] 13.9 s Normal 11.7-14.9 [facility] Comment on above: Performed By: #### P SUIV #### [facility] [address] [place], [address] CBC W/Diff, Automatedon 04-07 Absolute Lymph 2.49 X10 3/uL Normal 0.83-4.51 [facility] Comment on above: Order Comment: Order Date: 04/25/24Order Info: 0184-1 - CBCD Performed By: #### L 503.6620 #### [facility] [address] [place], [address] Absolute Neut 4.1 X10 3/uL Normal 2.0-7.7 [facility] Comment on above: Order Comment: Order Date: 04/25/24Order Info: 0184-1 - CBCD Performed By: #### L 503.6620 #### [facility] [address] [place], [address] Basophils/100 WBC (Bld) 0.7 % Normal 0-1 [facility] Comment on above: Order Comment: Order Date: 04/25/24Order Info: 0184-1 - CBCD Performed By: #### L 503.6620 #### [facility] [address] [place], [address] Eosinophils/100 WBC (Bld) 2.2 % Normal 0-5 [facility] Comment on above: Order Comment: Order Date: 04/25/24Order Info: 018- - CBCD Performed By: #### L 503.6620 #### [facility] [address] [place], [address] Erythrocyte distribution width (RBC) [Ratio] 13.2 % Normal 11.6-14.6 [facility] Comment on above: Order Comment: Order Date: 04/25/24Order Info: 018- - CBCD Performed By: #### L 503.6620 #### [facility] [address] [place], [address] Hematocrit (Bld) [Volume fraction] 40.7 % Normal 37-47 [facility] Comment on above: Order Comment: Order Date: 04/25/24Order Info: 018- - CBCD Performed By: #### L 503.6620 #### [facility] [address] [place], [address] Hemoglobin (Bld) [Mass/Vol] 13.4 g/dL Normal 12.0-15.0 [facility] Comment on above: Order Comment: Order Date: 04/25/24Order Info: 018- - CBCD Performed By: #### L 503.6620 #### [facility] [address] [place], [address] IG% 0.300 Normal 0.0-0.9 [facility] Comment on above: Order Comment: Order Date: 04/25/24Order Info: 018-1 - CBCD Result Comment: IG% - Immature Granulocytes (promyelocytes, myelocytes and metamyelocytes) > 1% indicates that a LEFT SHIFT is Present. Performed By: #### L 503.6620 #### [facility] [address] [place], [address] Lymphocytes/100 WBC (Bld) 34.7 % Normal 19-41 [facility] Comment on above: Order Comment: Order Date: 04/25/24Order Info: 183- - CBCD Performed By: #### L 503.6620 #### [facility] [address] [place], [address] MCH (RBC) [Entitic mass] 30.8 pg Normal 27.0-32.0 [facility] Comment on above: Order Comment: Order Date: 04/25/24Order Info: 183- - CBCD Performed By: #### L 503.6620 #### [facility] [address] [place], [address] MCHC (RBC) [Mass/Vol] 32.9 g/dL Normal 32-36 [facility] Comment on above: Order Comment: Order Date: 04/25/24Order Info: 183- - CBCD Performed By: #### L 503.6620 #### [facility] [address] [place], [address] MCV (RBC) [Entitic vol] 93.6 fL Normal 81-99 [facility] Comment on above: Order Comment: Order Date: 04/25/24Order Info: 183- - CBCD Performed By: #### L 503.6620 #### [facility] [address] [place], [address] Monocytes/100 WBC (Bld) 5.3 % Normal 0-10 [facility] Comment on above: Order Comment: Order Date: 04/25/24Order Info: 183- - CBCD Performed By: #### L 503.6620 #### [facility] [address] [place], [address] Neutrophils/100 WBC (Bld) 56.8 % Normal 47-70 [facility] Comment on above: Order Comment: Order Date: 04/25/24Order Info: 183- - CBCD Performed By: #### L 503.6620 #### [facility] [address] [place], [address] Nucleated RBC (Bld) [#/Vol] 0 10*3/uL Normal 0-5 [facility] Comment on above: Order Comment: Order Date: 04/25/24Order Info: 018- - CBCD Performed By: #### L 503.6620 #### [facility] [address] [place], [address] Platelet mean volume (Bld) [Entitic vol] 10.2 fL Normal 6.2-12.0 [facility] Comment on above: Order Comment: Order Date: 04/25/24Order Info: 018- - CBCD Performed By: #### L 503.6620 #### [facility] [address] [place], [address] Platelets (Bld) [#/Vol] 316 10*3/uL Normal 150-450 [facility] Comment on above: Order Comment: Order Date: 04/25/24Order Info: 018- - CBCD Performed By: #### L 503.6620 #### [facility] [address] [place], [address] RBC (Bld) [#/Vol] 4.35 10*6/uL Normal 4.2-5.4 [facility] Comment on above: Order Comment: Order Date: 04/25/24Order Info: 018- - CBCD Performed By: #### L 503.6620 #### [facility] [address] [place], [address] RDW SD 45.4 fl High 35.1-43.9 [facility] Comment on above: Order Comment: Order Date: 04/25/24Order Info: 018-1 - CBCD Performed By: #### L 503.6620 #### [facility] [address] [place], [address] WBC (Bld) [#/Vol] 7.2 10*3/uL Normal 4.4-11.[address] [facility] Comment on above: Order Comment: Order Date: 04/25/24Order Info: 0184-1 - CBCD Performed By: #### L 503.6620 #### [facility] [address] [place], [address] Comprehensive Metabolic Prof ilon 04-25-2024 Albumin [Mass/Vol] 3.8 g/dL Normal 3.2-5.[address] [facility] Comment on above: Order Comment: Order Date: 04/25/24Order Info: 86-1 - CMPOrder Info: [id number] - LIPIDOrder Info: [id number] - TSH Performed By: #### P SUIV #### [facility] [address] [place], [address] Albumin/Globulin [Mass ratio] 1.0 {ratio} Normal 0.9-2.4 [facility] Comment on above: Order Comment: Order Date: 04/25/24Order Info: 86-1 - CMPOrder Info: [id number] - LIPIDOrder Info: [id number] - TSH Performed By: #### P SUIV #### [facility] [address] [place], [address] ALK P 69 U/L Normal 45-117 [facility] Comment on above: Order Comment: Order Date: 04/25/24Order Info: 86-1 - CMPOrder Info: [id number] - LIPIDOrder Info: [id number] - TSH Performed By: #### P SUIV #### [facility] [address] [place], [address] ALT [Catalytic activity/Vol] 21 U/L Normal 13-56 [facility] Comment on above: Order Comment: Order Date: 04/25/24Order Info: 86-1 - CMPOrder Info: [id number] - LIPIDOrder Info: [id number] - TSH Performed By: #### P SUIV #### [facility] [address] [place], [address] AST [Catalytic activity/Vol] 22 U/L Normal 15-37 [facility] Comment on above: Order Comment: Order Date: 04/25/24Order Info: 0786-1 - CMPOrder Info: [id number] - LIPIDOrder Info: [id number] - TSH Performed By: #### P SUIV #### [facility] [address] [place], [address] Bilirubin [Mass/Vol] 0.40 mg/dL Normal 0.20-1.00 [facility] Comment on above: Order Comment: Order Date: 04/25/24Order Info: 0786-1 - CMPOrder Info: [id number] - LIPIDOrder Info: [id number] - TSH Result Comment: For patients on eltrombopag therapy, use of Dimension Piggott TBIL is not recommended. Performed By: #### P SUIV #### [facility] [address] [place], [address] BUN/CRE 18.6 RATIO Normal 10-20 [facility] Comment on above: Order Comment: Order Date: 04/25/24Order Info: 86-1 - CMPOrder Info: [id number] - LIPIDOrder Info: [id number] - TSH Performed By: #### P SUIV #### [facility] [address] [place], [address] CA,Total 9.1 mg/dL Normal 8.5-10.1 [facility] Comment on above: Order Comment: Order Date: 04/25/24Order Info: 0786-1 - CMPOrder Info: [id number] - LIPIDOrder Info: [id number] - TSH Performed By: #### P SUIV #### [facility] [address] [place], [address] Chloride [Moles/Vol] 106 mmol/L Normal 98-107 [facility] Comment on above: Order Comment: Order Date: 04/25/24Order Info: 0786-1 - CMPOrder Info: [id number] - LIPIDOrder Info: [id number] - TSH Performed By: #### P SUIV #### [facility] [address] [place], [place], [address] CO2 [Moles/Vol] 26.0 mmol/L Normal 21.0-32.0 [facility] Comment on above: Order Comment: Order Date: 04/25/24Order Info: 0786-1 - CMPOrder Info: [id number] - LIPIDOrder Info: [id number] - TSH Performed By: #### P SUIV #### [facility] [address] [place], [address] Creatinine [Mass/Vol] 0.86 mg/dL Normal 0.55-1.02 [facility] Comment on above: Order Comment: Order Date: 04/25/24Order Info: 0786-1 - CMPOrder Info: [id number] - LIPIDOrder Info: [id number] - TSH Result Comment: The validity of the calculated GFR GFRAA in patients over 70 years has not been determined. Clinical correlation is essential. Performed By: #### P SUIV #### [facility] [address] [place], [place], [address] EST GFR - AA 84 mL/min Normal >60 [facility] Comment on above: Order Comment: Order Date: 04/25/24Order Info: 86-1 - CMPOrder Info: [id number] - LIPIDOrder Info: [id number] - TSH Result Comment: Afri can Panamanian GFR Calc Performed By: #### P SUIV #### [facility] [address] [place], [address] GAP 7 Normal 5-15 [facility] Comment on above: Order Comment: Order Date: 04/25/24Order Info: 86-1 - CMPOrder Info: [id number] - LIPIDOrder Info: [id number] - TSH Performed By: #### P SUIV #### [facility] [address] [place], [address] GFR/1.73 sq M.predicted among non-blacks MDRD (S/P/Bld) [Vol rate/Area] 69 mL/min/{1.73_m2} Normal >60 [facility] Comment on above: Order Comment: Order Date: 04/25/24Order Info: 86-1 - CMPOrder Info: [id number] - LIPIDOrder Info: [id number] - TSH Result Comment: Non- GFR Calc Performed By: #### P SUIV #### [facility] [address] [place], [place], [address] Globulin (S) [Mass/Vol] 3.9 g/dL Normal 2.2-4.2 [facility] Comment on above: Order Comment: Order Date: 04/25/24Order Info: 785-1 - CMPOrder Info: [id number] - LIPIDOrder Info: 3 - TSH Performed By: #### P SUIV #### [facility] [address] [place], [place], [address] Glucose [Mass/Vol] 109 mg/dL High 74-[address] [facility] Comment on above: Order Comment: Order Date: 04/25/24Order Info: 785-1 - CMPOrder Info: [id number] - LIPIDOrder Info: 3 - TSH Result Comment: Fast ing Glucose result from 100 to 125 mg/dL suggests IMPAIRED HOMEOSTASIS per A.D.A. criteria. Performed By: #### P SUIV #### [facility] [address] [place], [address] Potassium [Moles/Vol] 4.1 mmol/L Normal 3.5-5.1 [facility] Comment on above: Order Comment: Order Date: 04/25/24Order Info: 785-1 - CMPOrder Info: [id number] - LIPIDOrder Info: [id number] - TSH Performed By: #### P SUIV #### [facility] [address] [place], [address] Sodium [Moles/Vol] 139 mmol/L Normal 136-[address] [facility] Comment on above: Order Comment: Order Date: 04/25/24Order Info: 0786-1 - CMPOrder Info: [id number] - LIPIDOrder Info: [id number] - TSH Performed By: #### P SUIV #### [facility] [address] [place], [place], [address] T PROT 7.7 g/dL Normal 6.4-8.2 [facility] Comment on above: Order Comment: Order Date: 04/25/24Order Info: 86-1 - CMPOrder Info: [id number] - LIPIDOrder Info: [id number] - TSH Performed By: #### P SUIV #### [facility] [address] [place], [place], [address] Urea nitrogen [Mass/Vol] 16 mg/dL Normal 7-18 [facility] Comment on above: Order Comment: Order Date: 04/25/24Order Info: 785-1 - CMPOrder Info: [id number] - LIPIDOrder Info: 6-3 - TSH Performed By: #### P SUIV #### [facility] [address] [place], [place], [address] Lipid Profileon 04-25-2024 Cholesterol [Mass/Vol] 249 mg/dL High 200 [facility] Comment on above: Order Comment: Order Date: 04/25/24Order Info: 785- - CMPOrder Info: [id number] - LIPIDOrder Info: [id number] - TSH Result Comment: <200 mg/dL Desirable 200-240 mg/dL Borderline >240 mg/dL High Risk Performed By: #### P SUIV #### [facility] [address] [place], [place], [address] Cholesterol in HDL [Mass/Vol] 90 mg/dL Normal [facility] Comment on above: Order Comment: Order Date: 04/25/24Order Info: 86-1 - CMPOrder Info: [id number] - LIPIDOrder Info: [id number] - TSH Result Comment: The drugs N-Acetylcysteine and Metamizole may falsely depress this assay. Reference Range HDL <40 mg/dL Low HDL Cholesterol HDL >or= 60 mg/dL High HDL Cholesterol Performed By: #### P SUIV #### [facility] [address] [place], [place], [address] (937) Cholesterol in LDL [Mass/Vol] 98 mg/dL Normal 0-130 [facility] Comment on above: Order Comment: Order Date: 04/25/24Order Info: 0786-1 - CMPOrder Info: [id number] - LIPIDOrder Info: [id number] - TSH Performed By: #### P SUIV #### [facility] [address] [place], [address] Cholesterol in VLDL [Mass/Vol] 61 mg/dL High 5-40 [facility] Comment on above: Order Comment: Order Date: 04/25/24Order Info: 86-1 - CMPOrder Info: [id number] - LIPIDOrder Info: [id number] - TSH Performed By: #### P SUIV #### [facility] [address] [place], [address] Triglyceride [Mass/Vol] 304 mg/dL High [facility] Comment on above: Order Comment: Order Date: 04/25/24Order Info: 86-1 - CMPOrder Info: [id number] - LIPIDOrder Info: [id number] - TSH Result Comment: The drugs N-Acetylcysteine and Metamizole may falsely depress this assay. Serum Triglycerides Reference Interval Normal <150 mg/dL Borderline high 150 - 199 mg/dL High 200 - 499 mg/dL Very High > or = 500 mg/dL Performed By: #### P SUIV #### [facility] [address] [place], [address] Thyroid Stim Hormone (TSH)on 04-25-2024 TSH 1.150 uIU/mL Normal 0.358-3.74 0 [facility] Comment on above: Order Comment: Order Date: 04/25/24Order Info: 0786-1 - CMPOrder Info: [id number] - LIPIDOrder Info: [id number] - TSH Performed By: #### P SUIV #### [facility] [address] [place], [address] Vitamin D,25 Hydroxyon 04-25 Vitamin D 25-OH 19.5 ng/mL Normal [facility] Comment on above: Order Comment: Order Date: 04/25/24Order Info: [id number] - VITD25 Result Comment: Joleen min D 25(OH) Status Range Deficiency <20 ng/mL (50nmol/L) Insufficiency 20 - 30 ng/mL (50 - 75 nmol/L) Sufficiency 30 - 100 ng/mL (75 - 250 nmol/L) Toxicity >100 ng/mL (>250 nmol/L) Performed By: #### L 503.6620 #### [facility] [address] [place], [address] Culture, urineOrdered By: Vandana Connelly on 05-06-2023 Bacteria identified Cx Nom (U) Escherichia coli [facility] - Chemistry and C hemistry - challengeon 05-05-2023 Bilirubin Ql (U) Negative [facility] pH (U) 5.0 [pH] [facility] Specific gravity (U) [Rel density] 1.005 [facility] Urobilinogen (U) [Mass/Vol] 0.4600994 mg/dL [facility] - Hematology and Cell countson 05-05-2023 Hemoglobin Ql (U) Large [facility] - Specimen inform ationon 05-05-2023 Clarity (U) Cloudy [facility] Color (U) Dk Yellow [facility] - Urinalysison Nitrite Ql (U) Negative [facility] Protein Ql (U) 3+ [facility] No Panel Informationon 05-05 Urine Leukocytes Positive [facility] Urine Non-Hemolyzed Blood [facility] Basophil percentageOrdered B y: Breonna Laura on 04-03-2023 Cholesterol [Mass/Vol] 233 mg/dL <200 [facility] Comment on above: <200 mg/dL Desirable 200-240 mg/dL Borderline >240 mg/dL High Risk Triglyceride [Mass/Vol] 134 mg/dL <199 [facility] Comment on above: The drugs N-Acetylcy steine and Metamizole may falsely depress this assay.Serum Triglycerides Reference Interval Normal <150 mg/dL Borderline high 150 - 199 mg/dL High 200 - 499 mg/dL Very High > or = 500 mg/dL No Panel InformationOrdered By: Breonna Sanchez on 04-03-2023 Thyroid Stimulating Hormone (TSH) 1.74 uIU/mL 0.358-3.74 [facility] Serum or plasma cholesterol in HDL measurement (mass/volume)Ordered By: Breonna Sanchez on 04-03-2023 Cholesterol in HDL [Mass/Vol] 84 mg/dL >40 [facility] Comment on above: The drugs N-Acetylcy steine and Metamizole may falsely depress this assay. Reference Range HDL <40 mg/dL Low HDL Cholesterol HDL >or= 60 mg/dL High HDL Cholesterol Serum or plasma cholesterol in VLDL measurement (mass/volume)Ordered By: Breonna Sanchez on 04-03-2023 Cholesterol in VLDL [Mass/Vol] 27 mg/dL 5-40 [facility] Serum or plasma low density lipoprotein (LDL) cholesterol measurement (mass/volume)Ordered By: Breonna Sanchez on 04-03-2023 Cholesterol in LDL [Mass/Vol] 122 mg/dL 0-130 [facility] CNTHERAPYon 03-29-2023 CNTHERAPY OT/PT/Speech Visit ( SPTBR) JENNIFER ZULETA ([id number]) 1955 F NFR Date Time Provider Department 03/29/23 1:00 PM ALMA ROSA RIVERA SPTBR Date Time Provider Department [place] 03/29/2023 1:00 PM [id number], WENDY SPTBR KUSUM GAYLE Reason for Visit: [...] B COMPLEX ORAL Take by mouth. Normal [facility] CNOVon 12-19-2022 CNOV Office Visit (NEMOWS ) JENNIFER ZULETA ([id number]) 1955 F NFR Date Time Provider Department 12/19/22 11:00 AM ZABRINA ROJAS During your visit today, we recorded the following information about you: Pulse Respiration Blood pressure Weight 82/minute 16/minute 128/88 74.6 kg Zabrina Rojas PA-C 12/21/2022 8:10 AM Signed [facility] for General Neurology Name: Jennifer Zuleta Age: [...] mg (more content not included)... Normal [facility] HEALTHon 12-14-2022 [facility] HNO ID: [id number] Author: RT Adriana(R) Service: Radiology Author Type: [...] RT Adriana(R) December 14, 2022 4:21 PM [facility] MRI 3D POST PROCESSINGon MRI 3D POST PROCESSING * * *Final Report* * * DATE OF EXAM: Dec 14 2022 4:24PM [facility] 0280 - MRI 3D POST [...] = Focal Lesions 2 = Beginning of Chavies 3 = Diffuse Involvement of Entire Region [...] results from the analysis charts for details. Roll Wrapper: BOLA Transcribe Date/Time: Dec 14 2022 10:08P Dictated by : CINDY BARRAZA DO This examination was interpreted and the report reviewed and electronically signed by: CINDY BARRAZA DO on Dec 14 2022 (more content not included)... Normal [facility] MRI BRAIN WO IVCONon 023 MRI BRAIN WO IVCON * * *Final Report* * * DATE OF EXAM: Dec 14 2022 4:24PM [facility] 0294 - MRI BRAIN WO IVCON / [...] = Focal Lesions 2 = Beginning of Chavies 3 = Diffuse Involvement of Entire Region Basal Ganglia Lesions: 0 = No Lesions 1 = 1 Focal Lesion (>5mm) 2 = >1 Focal Lesion (>5mm) 3 = Confluent Lesions Choco Zaragoza, et al. The clinical use of structural [...] results from the analysis charts for details. Roll Wrapper: BOLA Transcribe Date/Time: Dec 14 2022 10:08P Dictated by : CINDY BARRAZA DO This examination was interpreted and the report reviewed and electronically signed by: CINDY BARRAZA DO on Dec 14 2022 10:13PM EST (more content not included)... Normal [facility] CNTHERAPYon 12-12-2022 CNTHERAPY OT/PT/Speech Visit ( SPTBR) JENNIFER ZULETA ([id number]) 1955 F NFR Date Time Provider Department 12/12/22 3:00 PM ALMA ROSA RIVERA SPTLORI Date Time Provider Department Center 12/12/2022 3:00 PM [id number], WENDY SPTLORI GAYLE Reason for Visit: PT Lasha [[id number]] Visit Diagnoses: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 [G51.8] [...] B COMPLEX ORAL Take by mouth. Normal [facility] 11-14-2022 CNPN Telephone (HERNANREBECCA) JENNIFER ZULETA ([id number]) 1955 F NFR Date Time Provider Department [...] Order(s):CONSULT TO PHYSICAL THERAPY [9032] Order #: [id number]: 1 FUTURE Prescriptions as of 11/14/2022 - [...] 07/19/2011 ASCUS with positive high risk HPV [[id number]] 08/30/2011 12/21/2014 Special screening for malignant neoplasms, colo*12/10/2014 12/10/2014 GRACIELA III (cervical intraepithelial neoplasia gra*12/21/2014 Encounter Status:Closed by DAVID SAMAYOA on 11/14/[address] [facility] XR FLUORO 1-2 HRS TECH TIMEo n 08-30-2022 XR FLUORO 1-2 HRS TECH TIME ORIGINAL Images acquired, not reported on this accession number. Normal [facility] ([place]) Basophil percentageOrdered B y: Ray Sosa on 08-29-2022 Chloride [Moles/Vol] 105 mmol/L 98-107 [facility] Glucose [Mass/Vol] 90 mg/dL 74-[address] [facility] Potassium [Moles/Vol] 3.7 mmol/L 3.5-5.1 [facility] Sodium [Moles/Vol] 138 mmol/L 136-[address] [facility] WBC (Bld) [#/Vol] 6.3 10*3/uL 4.4-11.[address] [facility] Blood erythrocytes count (nu mber/volume)Ordered By: Ray Sosa on 08-29-2022 RBC (Bld) [#/Vol] 3.93 10*6/uL 4.2-5.4 [facility] Blood hemoglobin measurement (mass/volume)Ordered By: Ray Sosa on 08-29-2022 Hemoglobin (Bld) [Mass/Vol] 12.0 g/dL 12.0-15.0 [facility] Blood platelet mean volumeOr dered By: Ray Sosa on 08-29-2022 Platelet mean volume (Bld) [Entitic vol] 9.6 fL 6.2-12.0 [facility] Determination of erythrocyte mean corpuscular volume (MCV)Ordered By: Ray Sosa on 08-29-2022 MCV (RBC) [Entitic vol] 90.3 fL 81-99 [facility] Hematocrit Auto (Bld) [Volum e fraction]Ordered By: Ray Sosa on 08-29-2022 Hematocrit (Bld) [Volume fraction] 35.5 % 37-47 [facility] Laboratory - Chemistry and C hemistry - challengeOrdered By: Ray Sosa on 08-29-2022 CO2 [Moles/Vol] 24.0 mmol/L 21.0-32.0 [facility] Urea nitrogen/Creatinine [Mass ratio] 22.2 mg/mg 10-20 [facility] Laboratory - Hematology and Cell countsOrdered By: Ray Sosa on 08-29-2022 Erythrocyte distribution width (RBC) [Entitic vol] 43.3 fL 35.1-43.9 [facility] Erythrocyte distribution width (RBC) [Ratio] 13.1 % 11.6-14.6 [facility] MCH (RBC) [Entitic mass] 30.5 pg 27.0-32.0 [facility] MCHC Auto (RBC) [Mass/Vol]Or dered By: Ray Sosa on 08-29-2022 MCHC (RBC) [Mass/Vol] 33.8 g/dL 32-36 [facility] No Panel InformationOrdered By: Ray Sosa on 08-29-2022 Estimated GFR (MDRD) Amer 132 mL/min >60 [facility] Comment on above: GFR Calc Estimated GFR (MDRD) Non-Af Amer 109 mL/min >60 [facility] Comment on above: Non- GFR Calc Platelets bldOrdered By: Ray Sosa on 08-29-2022 Platelets (Bld) [#/Vol] 257 10*3/uL 150-450 [facility] Serum or plasma calcium ash urement (mass/volume)Ordered By: Ray Sosa on 08-29-2022 Calcium [Mass/Vol] 8.9 mg/dL 8.5-10.[address] [facility] Serum or plasma creatinine m easurement (mass/volume)Ordered By: Ray Sosa on 08-29-2022 Creatinine [Mass/Vol] 0.58 mg/dL 0.55-1.02 [facility] Comment on above: The validity of the calculated GFR & GFRAA in patients over 70 years has not been determined. Clinical correlation is essential. Serum or plasma urea nitroge n measurement (mass/volume)Ordered By: Ray Sosa on 08-29-2022 Urea nitrogen [Mass/Vol] 13 mg/dL 7-18 [facility] Thin prep Papanicolaou smear with manual screeningOrdered By: Ray Sosa on 08-29-2022 Thin prep Papanicolaou smear with manual screening 9 5-15 [facility] Basophil percentageon 2021 Bilirubin [Mass/Vol] 0.80 mg/dL 0.20-1.00 [facility] Work Phone: Comment on above: For patients on eltr ombopag therapy, use of Dimension [place] TBIL is not recommended. Chloride [Moles/Vol] 107 mmol/L 98-107 [facility] Work Phone: [phone] Cholesterol [Mass/Vol] 228 mg/dL <200 [facility] Work Phone: [phone] Comment on above: <200 mg/dL Desirable 200-240 mg/dL Borderline >240 mg/dL High Risk Glucose [Mass/Vol] 100 mg/dL 74-[address] [facility] Work Phone: Comment on above: Fasting Glucose resu lt from 100 to 125 mg/dL suggests IMPAIRED HOMEOSTASIS per A.D.A. criteria. Potassium [Moles/Vol] 4.1 mmol/L 3.5-5.1 [facility] Work Phone: [phone] Protein [Mass/Vol] 7.5 g/dL 6.4-8.[address] [facility] Work Phone: Sodium [Moles/Vol] 139 mmol/L 136-[address] [facility] Work Phone: [phone] Triglyceride [Mass/Vol] 104 mg/dL <199 [facility] Work Phone: Comment on above: The drugs N-Acetylcy steine and Metamizole may falsely depress this assay.Serum Triglycerides Reference Interval Normal <150 mg/dL Borderline high 150 - 199 mg/dL High 200 - 499 mg/dL Very High > or = 500 mg/dL WBC (Bld) [#/Vol] 4.5 10*3/uL 4.4-11.[address] [facility] Work Phone: [phone] Blood erythrocytes count (nu mber/volume)on 03-22-2022 RBC (Bld) [#/Vol] 4.33 10*6/uL 4.2-5.4 [facility] Work Phone: [phone] Blood hemoglobin measurement (mass/volume)on 03-22-2022 Hemoglobin (Bld) [Mass/Vol] 13.2 g/dL 12.0-15.0 [facility] Work Phone: [phone] Blood platelet mean volumeon 03-22-2022 Platelet mean volume (Bld) [Entitic vol] 9.4 fL 6.2-12.0 [facility] Work Phone: [phone] Determination of erythrocyte mean corpuscular volume (MCV)on 03-22-2022 MCV (RBC) [Entitic vol] 91.0 fL 81-99 [facility] Work Phone: [phone] Hematocrit Auto (Bld) [Volum e fraction]on 03-22-2022 Hematocrit (Bld) [Volume fraction] 39.4 % 37-47 [facility] Work Phone: Laboratory - Chemistry and C hemistry - challengeon 03-22-2022 ALP [Catalytic activity/Vol] 60 U/L 45-117 [facility] Work Phone: [phone] ALT [Catalytic activity/Vol] 20 U/L 13-56 [facility] Work Phone: [phone] CO2 [Moles/Vol] 26.0 mmol/L 21.0-32.0 [facility] Work Phone: [phone] Cobalamin (Vitamin B12) [Mass/Vol] 375 pg/mL 211-911 [facility] Work Phone: [phone] Free T4 [Mass/Vol] 1.15 ng/dL 0.76-1.[address] [facility] Work Phone: [phone] Globulin (S) [Mass/Vol] 3.9 g/dL 2.2-4.2 [facility] Work Phone: [phone] Urea nitrogen/Creatinine [Mass ratio] 21.1 mg/mg 10-20 [facility] Work Phone: [phone] Laboratory - Hematology and Cell countson 03-22-2022 Erythrocyte distribution width (RBC) [Entitic vol] 45.9 fL 35.1-43.9 [facility] Work Phone: [phone] Erythrocyte distribution width (RBC) [Ratio] 13.4 % 11.6-14.6 [facility] Work Phone: MCH (RBC) [Entitic mass] 30.5 pg 27.0-32.0 [facility] Work Phone: [phone] MCHC Auto (RBC) [Mass/Vol]on 03-22-2022 MCHC (RBC) [Mass/Vol] 33.5 g/dL 32-36 [facility] Work Phone: No Panel Informationon 03-22 Estimated GFR (MDRD) Amer 114 mL/min >60 [facility] Work Phone: Comment on above: GFR Calc Estimated GFR (MDRD) Non-Af Amer 94 mL/min >60 [facility] Work Phone: Comment on above: Non- GFR Calc Thyroid Stimulating Hormone (TSH) 1.43 uIU/mL 0.358-3.74 [facility] Work Phone: [phone] Vitamin D 25-Hydroxy 31.4 ng/mL [facility] Work Phone: Comment on above: Vitamin D 25(OH) Sta tus Range Deficiency <20 ng/mL (50nmol/L) Insufficiency 20 - 30 ng/mL (50 - 75 nmol/L) Sufficiency 30 - 100 ng/mL (75 - 250 nmol/L) Toxicity >100 ng/mL (>250 nmol/L) Platelets bldon 03-22-2022 Platelets (Bld) [#/Vol] 241 10*3/uL 150-450 [facility] Work Phone: [phone] Serum or plasma albumin ash urement (mass/volume)on 03-22-2022 Albumin [Mass/Vol] 3.6 g/dL 3.2-5.[address] [facility] Work Phone: [phone] Serum or plasma albumin/glob ulin mass ratioon 03-22-2022 Albumin/Globulin [Mass ratio] 0.9 {ratio} 0.9-2.4 [facility] Work Phone: [phone] Serum or plasma calcium ash urement (mass/volume)on 03-22-2022 Calcium [Mass/Vol] 8.6 mg/dL 8.5-10.[address] [facility] Work Phone: Serum or plasma cholesterol in HDL measurement (mass/volume)on 03-22-2022 Cholesterol in HDL [Mass/Vol] 88 mg/dL >40 [facility] Work Phone: Comment on above: The drugs N-Acetylcy steine and Metamizole may falsely depress this assay. Reference Range HDL <40 mg/dL Low HDL Cholesterol HDL >or= 60 mg/dL High HDL Cholesterol Serum or plasma cholesterol in VLDL measurement (mass/volume)on 03-22-2022 Cholesterol in VLDL [Mass/Vol] 21 mg/dL 5-40 [facility] Work Phone: Serum or plasma creatinine m easurement (mass/volume)on 03-22-2022 Creatinine [Mass/Vol] 0.66 mg/dL 0.55-1.02 [facility] Work Phone: Comment on above: The validity of the calculated GFR & GFRAA in patients over 70 years has not been determined. Clinical correlation is essential. Serum or plasma low density lipoprotein (LDL) cholesterol measurement (mass/volume)on 03-22-2022 Cholesterol in LDL [Mass/Vol] 119 mg/dL 0-130 [facility] Work Phone: Serum or plasma urea nitroge n measurement (mass/volume)on 03-22-2022 Urea nitrogen [Mass/Vol] 14 mg/dL 7-18 [facility] Work Phone: Thin prep Papanicolaou smear with manual screeningon 03-22-2022 Thin prep Papanicolaou smear with manual screening 18 U/L 15-37 [facility] Work Phone: Thin prep Papanicolaou smear with manual screening 6 5-15 [facility] Work Phone: Whole blood hemoglobin A1c/t otal hemoglobin ratio (mass fraction)on 03-22-2022 HbA1c (Bld) [Mass fraction] 5.2 % 3.8-5.6 [facility] Work Phone: Comment on above: Normal < [...] the radial nerve neurapraxia. Disk[employer] Job ID: [id number] Olivier Ryan MD DOD:08/25/2021 09:58 A ERICA/bay DOT:08/25/2021 10:34 A Job Number: [id number] Document Number: [id number] cc: Olivier Ryan MD [address] [place] [address] Surgical Pathologyon 022 Surgical Pathology [id number] [facility] DEPART[facility] PATHOLOGY AND LABORATORY MEDICINE [address] [place] [id number] FINAL SURGICAL PATHOLOGY REPORT NAME: JENNIFER ZULETA N [id number] : 1955 66 Y F BILLING NO.: [id number] [facility] PROCEDURE 08/25/2021 DATE: SURGEON: OLIVIER RYAN [...] characteristics determined by the clinical laboratories of [facility]. They have not been cleared by [...] negativity on decalcified specimens. Professional Performing Location: [address] [address]. DEPARTMENT OF PATHOLOGY AND LABORATORY MEDICINE [place], [place] [address] [email or web address] Normal [facility] Lab Report: PAP I-G HPV Hi R iskon 04-18-2017 GE use only - for LinkLogic import when terms are not otherwise specified Negative Invalid Interpretation Code Negative [facility] Office Visit: est annualon 0 2017 Documentation of current medications (procedure) Done Invalid Interpretation Code [facility] Fall risk assessment No Invalid Interpretation Code [facility] Hemoglobin presence in stool not done Invalid Interpretation Code [facility] Tobacco smoking status NHIS Never Invalid Interpretation Code [facility] Tobacco use CPHS Never smoker Invalid Interpretation Code [facility] Lab Report: Lipid Profileon 04-06-2017 Cholesterol in HDL mass conc 117 mg/dL Invalid Interpretation Code [facility] Cholesterol in LDL mass conc 93 mg/dL Invalid Interpretation Code 0-130 [facility] Cholesterol mass conc 224 mg/dL High 200 [facility] Lipoprotein.pre-beta mass conc 14 mg/dL Invalid Interpretation Code 5-40 [facility] Triglyceride mass conc 70 mg/dL Invalid Interpretation Code [facility] Lab Report: T4 Free Directon 04-06-2017 T4 free mass conc 1.21 ng/dL Invalid Interpretation Code 0.76-1.46 [facility] Lab Report: Thyroid Stim Hor zoey (TSH)on 04-06-2017 Thyrotropin Qn 0.42 u[iU]/mL Invalid Interpretation Code 0.358-3.74 [facility] Office Visit: est annualon 0 11-05-2015 General categories [Interpretation] of Cervical or vaginal smear or scraping by Cyto stain Normal Invalid Interpretation Code [facility] Office Visit: est annualon 0 12-04-2014 Breast Mammogram screening Normal Bilateral Invalid Interpretation Code [facility] Vital Signs Date Time Vital Sign Value Performing Clinician Facility 12-04-2024 08:16-0400 Body height 160.02 cm Edel Nickerson MD Work Phone: [facility] 12-04-2024 08:16-0400 Body mass index (BMI) [Ratio] 30.4 kg/m2 Edel Nickerson MD Work Phone: [facility] 12-04-2024 08:16-0400 Body weight 78.01 kg Edel Nickerson MD Work Phone: [facility] 12-04-2024 08:16-0400 Diastolic blood pressure 79 mm[Hg] Edel Nickerson MD Work Phone: [facility] 12-04-2024 08:16-0400 Heart rate 78 /min Edel Nickerson MD Work Phone: [facility] 12-04-2024 08:16-0400 Respiratory rate 18 /min Edel Nickerson MD Work Phone: [facility] 12-04-2024 08:16-0400 Systolic blood pressure 117 mm[Hg] Edel Nickerson MD Work Phone: [facility] 10-08-2024 15:16-0500 Body height 160.02 cm Edel Nickerson MD Work Phone: [facility] 10-08-2024 15:15-0500 Body mass index (BMI) [Ratio] 30.7 kg/m2 Edel Nickerson MD Work Phone: [facility] 10-08-2024 15:15-0500 Body weight 78.69 kg Edel Nickerson MD Work Phone: [facility] 10-08-2024 15:15-0500 Diastolic blood pressure 79 mm[Hg] Edel Nickerson MD Work Phone: [facility] 10-08-2024 15:15-0500 Systolic blood pressure 116 mm[Hg] Edel Nickerson MD Work Phone: [facility] 08-08-2024 14:40-0500 Body mass index (BMI) [Ratio] 30.1 kg/m2 Edel Nickerson MD Work Phone: [facility] 08-08-2024 14:40-0500 Body weight 77.11 kg Edel Nickerson MD Work Phone: [facility] 08-08-2024 14:40-0500 Diastolic blood pressure 84 mm[Hg] Edel Nickerson MD Work Phone: [facility] 08-08-2024 14:40-0500 Systolic blood pressure 136 mm[Hg] Edel Nickerson MD Work Phone: [facility] 06-24-2024 08:28-0500 Body mass index (BMI) [Ratio] 29.7 kg/m2 Edel Nickerson MD Work Phone: [facility] 06-24-2024 08:28-0500 Body weight 76.2 kg Edel Nickerson MD Work Phone: [facility] 06-24-2024 08:28-0500 Diastolic blood pressure 88 mm[Hg] Edel Nickerson MD Work Phone: [facility] 06-24-2024 08:28-0500 Heart rate 79 /min Edel Nickerson MD Work Phone: [facility] 06-24-2024 08:28-0500 Respiratory rate 18 /min Edel Nickerson MD Work Phone: [facility] 06-24-2024 08:28-0500 Systolic blood pressure 129 mm[Hg] Edel Nickerson MD Work Phone: [facility] 06-21-2023 09:16-0500 Diastolic blood pressure 85 mm[Hg] DO Zhang Sabina Work Phone: [facility] 06-21-2023 09:16-0500 Heart rate 69 /min DO Zhang Sabina Work Phone: [facility] 06-21-2023 09:16-0500 Respiratory rate 17 /min DO Zhang Sabina Work Phone: [facility] 06-21-2023 09:16-0500 SaO2% (BldA) [Mass fraction] 94 % DO Zhang Sabina Work Phone: [facility] 06-21-2023 09:16-0500 Systolic blood pressure 133 mm[Hg] DO Zhang Sabian Work Phone: [facility] 05-05-2023 08:35-0400 Body height 160.02 cm DO Zhang Sabina Work Phone: [facility] 05-05-2023 08:35-0400 Body mass index (BMI) [Ratio] 29.5 kg/m2 DO Zhang Sabina Work Phone: [facility] 05-05-2023 08:35-0400 Body temperature 98 [degF] DO Zhang Sabina Work Phone: [facility] 05-05-2023 08:35-0400 Body weight 75.74 kg DO Zhang Sabina Work Phone: [facility] 05-05-2023 08:35-0400 Diastolic blood pressure 77 mm[Hg] DO Zhang Sabina Work Phone: [facility] 05-05-2023 08:35-0400 Heart rate 80 /min DO Zhang Sabina Work Phone: [facility] 05-05-2023 08:35-0400 Systolic blood pressure 119 mm[Hg] DO Zhang Sabina Work Phone: [facility] 04-10-2023 14:35-0400 Body height 160.02 cm DO Zhangisabel Olsonnger Work Phone: [facility] 04-10-2023 14:35-0400 Body mass index (BMI) [Ratio] 29.1 kg/m2 DO Zhang Sabina Work Phone: [facility] 04-10-2023 14:35-0400 Body weight 74.61 kg DO Zhang Sabina Work Phone: [facility] 04-10-2023 14:35-0400 Diastolic blood pressure 83 mm[Hg] DO Zhang Sabina Work Phone: [facility] 04-10-2023 14:35-0400 Systolic blood pressure 143 mm[Hg] DO Zhangisabel Olsonnger Work Phone: [facility] 10-16-2022 13:05-0400 Body temperature 97.9 [degF] David Samayoa Jr., MD Work Phone: [facility] 10-16-2022 13:05-0400 Body weight 74.39 kg David Samayoa Jr., MD Work Phone: [facility] 10-16-2022 13:05-0400 Diastolic blood pressure 86 mm[Hg] David Samayoa Jr., MD Work Phone: [facility] 10-16-2022 13:05-0400 Heart rate 75 /min David Samayoa Jr., MD Work Phone: [facility] 10-16-2022 13:05-0400 Respiratory rate 18 /min David Samayoa Jr., MD Work Phone: [facility] 10-16-2022 13:05-0400 Systolic blood pressure 129 mm[Hg] David Samayoa Jr., MD Work Phone: [facility] 08-30-2022 15:04-0500 Diastolic Blood Pressure Non-Invasive 62 1 MARIN DOSS DO [facility] 08-30-2022 15:04-0500 Heart rate 65 /min MARIN SPITTLE DO [facility] 08-30-2022 15:04-0500 Systolic Blood Pressure Non-Invasive 120 1 MARIN SPITTLE DO [facility] 08-30-2022 14:44-0500 Diastolic Blood Pressure Non-Invasive 64 1 MARIN SPITTLE DO [facility] 08-30-2022 14:44-0500 Heart rate 64 /min MARIN SPITTLE DO [facility] 08-30-2022 14:44-0500 Systolic Blood Pressure Non-Invasive 121 1 MARIN SPITTLE DO [facility] 08-30-2022 14:23-0500 Diastolic Blood Pressure Non-Invasive 69 1 AMRIN SPITTLE DO [facility] 08-30-2022 14:23-0500 Heart rate 67 /min MARIN SPITTLE DO [facility] 08-30-2022 14:23-0500 Respiratory rate 13 /min MARIN SPITTLE DO [facility] 08-30-2022 14:23-0500 Systolic Blood Pressure Non-Invasive 135 1 MARIN SPITTLE DO [facility] 08-30-2022 14:10-0500 Respiratory rate 15 /min MARIN SPITTLE DO [facility] 08-30-2022 13:56-0500 Respiratory rate 15 /min MARIN SPITTLE DO [facility] 08-30-2022 13:40-0500 Body temperature 97.7 [degF] MARIN SPITTLE DO [facility] 08-30-2022 13:35-0500 Respiratory Rate - Anes 14 br/min MARIN SPITTLE DO [facility] 08-30-2022 13:30-0500 Respiratory Rate - Anes 15 br/min MARIN SPITTLE DO [facility] 08-30-2022 13:25-0500 Respiratory Rate - Anes 15 br/min MARIN SPITTLE DO [facility] 08-30-2022 13:15-0500 Body temperature 96.8 [degF] MARIN SPITTLE DO [facility] 08-30-2022 12:45-0500 Body temperature 96.8 [degF] MARIN SPITTLE DO [facility] 08-30-2022 12:10-0500 Heart rate 72 /min MARIN SPITTLE DO [facility] 08-30-2022 11:05-0500 Body height 161 cm MARIN SPITTLE DO [facility] 08-30-2022 11:05-0500 Body temperature 97.34 [degF] MARIN SPITTLE DO [facility] 08-30-2022 11:05-0500 Body weight 70.5 kg MARIN SPITTLE DO [facility] 08-30-2022 11:05-0500 Heart rate 63 /min MARIN SPITTLE DO [facility] 08-27-2022 14:45-0500 Diastolic blood pressure 84 mm[Hg] [facility] 08-27-2022 14:45-0500 Heart rate 66 /min [facility] 08-27-2022 14:45-0500 Respiratory rate 16 /min [facility] 08-27-2022 14:45-0500 SaO2% (BldA) [Mass fraction] 98 % [facility] 08-27-2022 14:45-0500 Systolic blood pressure 138 mm[Hg] [facility] 08-27-2022 14:16-0500 Inhaled oxygen concentration 4 % [facility] 08-27-2022 14:16-0500 Inhaled oxygen flow rate 2 L/min [facility] 08-27-2022 14:06-0500 Body temperature 98 [degF] [facility] 08-27-2022 10:55-0500 Body height 160.02 cm [facility] 08-27-2022 10:55-0500 Body mass index (BMI) [Ratio] 28.5 kg/m2 [facility] 08-27-2022 10:55-0500 Body weight 73.2 kg [facility] 07-03-2022 17:43-0500 Diastolic blood pressure 71 mm[Hg] Dr. Sascha Swift Work Phone: [facility] 07-03-2022 17:43-0500 Heart rate 87 /min Dr. Sascha Swift Work Phone: [facility] 07-03-2022 17:43-0500 Respiratory rate 16 /min Dr. Sascha Swift Work Phone: [facility] 07-03-2022 17:43-0500 SaO2% (BldA) [Mass fraction] 99 % Dr. Sascha Swift Work Phone: [facility] 07-03-2022 17:43-0500 Systolic blood pressure 142 mm[Hg] Dr. Sascha Swift Work Phone: [facility] 07-03-2022 13:37-0500 Body height 160.[address] Sascha Swift Work Phone: [facility] Work Phone: 07-03-2022 13:37-0500 Body mass index (BMI) [Ratio] 29.6 kg/m2 Dr. Sascha Swift Work Phone: [facility] 07-03-2022 13:37-0500 Body temperature 97.7 [degF] Dr. Sascha Swift Work Phone: [facility] 07-03-2022 13:37-0500 Body weight 75.[address] Sascha Swift Work Phone: [facility] 03-21-2022 13:05-0400 Body height 160.[address] Sascha Swift Work Phone: [facility] Work Phone: 03-21-2022 13:05-0400 Body mass index (BMI) [Ratio] 28.3 kg/m2 Dr. Sascha Swift Work Phone: [facility] Work Phone: 03-21-2022 13:05-0400 Body weight 72.[address] Sascha Swift Work Phone: [facility] Work Phone: 03-21-2022 13:05-0400 Diastolic blood pressure 80 mm[Hg] Dr. Sascha Swift Work Phone: [facility] Work Phone: 03-21-2022 13:05-0400 Systolic blood pressure 121 mm[Hg] Dr. Sascha Swift Work Phone: [facility] Work Phone: 2017 12:58-0400 BMI (Body Mass Index) 22.45 kg/m2 Rand Melgar MD [facility] 2017 12:58-0400 Body Temperature 96.5 [degF] Rand Melgar MD [facility] 2017 12:58-0400 Body Temperature 96.49 [degF] Rand Melgar MD [facility] 2017 12:58-0400 BP Diastolic 79 mm[Hg] Rand Melgar MD [facility] 2017 12:58-0400 BP Systolic 123 mm[Hg] Rand Melgar MD [facility] 2017 12:58-0400 Height 162.56 cm Rand Melgar MD [facility] 2017 12:58-0400 Pulse (Heart Rate) 83 /min Rand Melgar MD [facility] 2017 12:58-0400 Respiratory Rate 16 /min Rand Melgar MD [facility] 2017 12:58-0400 Weight 59.33 kg Rand Melgar MD [facility] Encounters Encounter Date Encounter Type Care Provider Facility Start: 04-07-2025 ambulatory [facility] [facility] Facility:[facility] Start: 03-04-2025 ambulatory Vesna David Facility:[facility] Start: 03-04-2025 Non-patient / Non-visit Dr. Vesna aggarwal MD -[facility] Start: 03-04-2025 End: 03-04-2025 ambulatory Edel Nickerson MD Work Phone: -Cardiovascular Services Start: 03-04-2025 End: 03-04-[address] Vesna Hernandez MD -Cardiovascular Services Work Phone: Start: 03-04-2025 End: 03-04-2025 ambulatory Vesna Hernandez Facility:[facility] Start: 12-04-2024 End: 12-04-[address] Vesna Hernandez MD -[facility] Work Phone: Start: 12-04-2024 End: 12-04-2024 ambulatory [facility] Facility:[facility] Start: 10-20-2024 End: 10-20-2024 ambulatory Edel Nickerson MD Work Phone: [facility] Work Phone: Start: 10-20-2024 End: 10-20-[address] Edel Nickerson MD -Cat Scan, [facility] Work Phone: Start: 10-20-2024 End: 10-20-2024 [facility] Start: 10-08-2024 End: 10-08-2024 ambulatory Edel Nickerson MD Work Phone: [facility] Work Phone: Start: 10-08-2024 End: 10-08-[address] Rand Melgar MD -Laboratory, Specimen Work Phone: Start: 10-08-2024 End: 10-08-[address] Rand Melgar MD -[facility] Work Phone: Start: 10-08-2024 End: 10-08-2024 [facility] Facility:[facility] Start: 10-08-2024 End: 10-08-2024 ambulatory [facility] Facility:[facility] Start: 09-24-2024 End: 09-24-[address] Rand Melgar MD -Outpatient Breast Imaging Work Phone: Start: 09-24-2024 End: 09-24-2024 [facility] Start: 08-08-2024 End: 08-08-[address] Rand Melgar MD -Laboratory, Specimen Work Phone: Start: 08-08-2024 Encounter for gynecological examination (general) (routine) without abnormal findings Rand Melgar [facility] Start: 08-08-2024 End: 08-08-[address] Rand Melgar MD -[facility] Work Phone: Start: 08-08-2024 End: 08-08-[address] Rand Melgar MD [facility] Start: 08-08-2024 End: 08-08-2024 ambulatory Chalon Krishan Facility:[facility] Start: 08-08-2024 End: 08-08-2024 ambulatory Chalon Krishan Facility:[facility] Start: 08-05-2024 End: 08-05-2024 Patient encounter procedure Piotr Bond ADULT LIVE IN CAREGIVER-C -Radiology, [place] Work Phone: Start: 08-05-2024 End: 08-05-2024 ambulatory Chalon Krishan Facility:[facility] Start: 07-23-2024 End: 07-23-2024 Patient encounter procedure Sascha Salazar ADULT LIVE IN CAREGIVER-C -Laboratory Work Phone: Start: 07-23-2024 End: 07-23-2024 ambulatory Sascha Salazar ADULT LIVE IN CAREGIVER Facility:[facility] Start: 06-24-2024 End: 06-24-[address] Vesna Hernandez MD -[facility] Work Phone: Start: 06-24-2024 End: 06-24-2024 ambulatory Vesna Hernandez Facility:[facility] Start: 06-05-2024 End: 06-05-2024 ambulatory Chalon Rkishan Facility:[facility] Start: 05-30-2024 ambulatory Chalon Krishan Facility:[facility] Start: 05-29-2024 End: 05-30-2024 ambulatory Haroldo Liu Facility:[facility] Start: 05-29-2024 End: 05-29-2024 ambulatory Chalon Krishan Facility:[facility] Start: 04-25-2024 End: 04-25-2024 ambulatory Chalon Krishan Facility:[facility] Start: 06-26-2023 Non-patient / Non-visit DO Elfego Muhammad Work Phone: [facility] Start: 06-26-2023 End: 06-26-2023 ambulatory DO Zhang Muhammad Work Phone: [facility] Work Phone: Start: 06-26-2023 End: 06-26-2023 Patient encounter procedure DO Zhang Muhammad Work Phone: [facility]-Breast Imaging - Biopsy/[place] Work Phone: Start: 06-21-2023 End: 06-21-2023 Patient encounter procedure DO Zhang Olsonnger Work Phone: [facility] Work Phone: Start: 06-15-2023 End: 06-15-2023 ambulatory DO Zhang Muhammad Work Phone: [facility] Work Phone: Start: 06-15-2023 End: 06-15-2023 Patient encounter procedure DO Zhang Olsonnger Work Phone: [facility]-Outpatient Pavilion Ultrasound Work Phone: Start: 06-11-2023 End: 06-11-2023 ambulatory DO Zhang Olsonnger Work Phone: [facility] Work Phone: Start: 06-11-2023 End: 06-11-2023 Patient encounter procedure DO Zhang Olsonnger Work Phone: [facility]-Outpatient Breast Imaging Work Phone: Start: 05-05-2023 End: 05-05-2023 Patient encounter procedure DO Zhang Muhammad Work Phone: [facility]-Laboratory, Specimen Work Phone: Start: 05-05-2023 End: 05-05-2023 Patient encounter procedure DO Zhang Olsonnger Work Phone: [facility] Work Phone: Start: 04-10-2023 End: 04-10-2023 Patient encounter procedure DO Zhang Sabina Work Phone: [facility] Work Phone: Start: 04-03-2023 End: 04-03-2023 ambulatory DO Zhang Olsonnger Work Phone: [facility] Work Phone: Start: 04-03-2023 End: 04-03-2023 Patient encounter procedure DO Zhang Muhammad Work Phone: [facility]-[place], [place] Start: 03-29-2023 End: 03-29-2023 ambulatory Alma Rosa Rivera PT Work Phone: 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); Facial weakness Start: 12-19-2022 End: 12-19-2022 ambulatory ZABRINASHANNA ROJAS Facility:[facility] Start: 12-14-2022 Orders Only Reid Urrutia MD Work Phone: Radiology Comment on above: Cognitive impairment (Primary Dx) Start: 12-12-2022 End: 12-12-2022 ambulatory ZHANG MUHAMMAD Facility:[facility] Start: 11-14-2022 Telephone encounter David Samayoa MD Work Phone: Sleep Comment on above: Orders Start: 10-16-2022 End: 10-16-2022 Patient encounter procedure David Samayoa MD Work Phone: Neurology Comment on above: 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 ) Start: 08-30-2022 End: 08-30-2022 ambulatory ZHANG MUHAMMAD DO Facility:[facility] Start: 08-30-2022 End: 08-30-2022 SAME DAY STAY MARINHOLA DOSS DO [facility] Start: 08-29-2022 End: 08-29-2022 Non-patient / Non-visit DO Zhang Muhammad Work Phone: [facility] Start: 08-29-2022 End: 08-29-2022 Patient encounter procedure DO Zhang Muhammad Work Phone: [facility]-Pulmonary Services/Neurology Start: 08-29-2022 End: 08-29-[address] SOHA MUHAMMAD MD. Facility:[facility] Start: 08-27-2022 End: 08-27-2022 Emergency department patient visit [facility]-Emergency Department Start: 07-03-2022 End: 07-03-2022 Emergency department patient visit Dr. Sascha Swift Work Phone: [facility]-Emergency Department Start: 04-27-2022 End: 04-27-[address] Sascha Swift Work Phone: [facility]-Ultrasound, [facility] Start: 04-11-2022 End: 04-11-[address] Sascha Swift Work Phone: [facility] Work Phone: Start: 04-11-2022 End: 04-11-[address] Sascha Swift Work Phone: [facility]-Cat Scan, [facility] Start: 03-23-2022 End: 03-23-[address] Sascha Swift Work Phone: [facility] Work Phone: Start: 03-23-2022 End: 03-23-[address] Sascha Swift Work Phone: [facility]-Outpatient Bone Densitometry Start: 03-22-2022 End: 03-22-[address] Sascha Swift Work Phone: [facility]-Laboratory, OP Pavilion Start: 03-21-2022 End: 03-21-[address] Sascha Swift Work Phone: [facility] Start: 11-29-2021 End: 11-29-2021 Patient encounter procedure [facility]-Outpatient Breast Imaging Procedures Date Procedure Procedure Detail Performing Clinician Start: 03-04-2025 Radionuclide imaging of perfusion of myocardium under exercise stress Edel Nickerson MD Work Phone: Start: 10-20-2024 CT of thorax, abdome n and pelvis with contrast Edel Nikcerson MD Work Phone: Start: 09-24-2024 Screening mammography C terell Nickerson MD Work Phone: Start: 08-05-2024 X-ray of chest, PA a nd lateral views Edel Nickerson MD Work Phone: Start: 06-24-2024 Evaluation of diagno stic study results Edel Nickerson MD Work Phone: Start: 06-26-2023 Ultrasonography guid ed biopsy of breast DO Zhang Muhammad Work Phone: Start: 06-15-2023 Ultrasonography of breast DO Zhang Muhammad Work Phone: Start: 06-11-2023 Screening mammography D O Zhang Olsonnger Work Phone: Start: 05-05-2023 Urine culture DO [...] Jr., MD Work Phone: Cataract (disorder) MARIN SPISOFIALE DO Comment on above: BOTH EYES 2021 [...] Activity Detail Author Start: 06-24-[address] [facility] Work Phone: Start: 04-06-2023 Influenza vaccination INFLUENZA (#1) [facility] Start: 08-28-2022 COVID-19 VACCINE (5 - Moderna series) COVID-19 VACCINE (5 - Moderna series) [facility] Start: 08-27-2022 Cltx dstl rdl fx/epiphysl sep w/manj when perf TREAT FRACTURE RADIUS/ULNA [facility] Start: 08-27-2022 [facility] Start: 08-06-2022 ADVANCE DIRECTIVE DISCUSSION ADVANCE DIRECTIVE DISCUSSION [facility] Start: 08-06-2022 DEPRESSION ASSESSMENT DEPRESSION ASS ESSMENT [facility] Start: 07-03-2022 Simple repair scalp/neck/ax/genit/melodie nk 2.5cm/< RPR S/N/AX/GEN/TRNK 2.5CM/< [facility] Start: 04-06-2022 Influenza vaccination INFLUENZA (#1) [facility] Start: 11-18-2020 LIPID SCREEN LIPID SCREEN [facility] Start: 12-11-2019 Colonoscopy COLONOSCOPY [facility] Start: 12-11-2019 COLORECTAL CANCER SCREENING COLORECTAL CANCER SCREENING [facility] Start: 2019 BONE DENSITY BONE DENSITY [facility] Start: 2019 PNEUMOCOCCAL: 65+ (1 - PCV) PNEUMOCOCCAL: 65+ (1 - PCV) [facility] Start: 11-18-2018 DIABETES SCREEN DIABETES SCREEN [facility] Start: 2017 End: 2017 Appointment Appointment [facility] Start: 2017 End: 04-18-2017 Mammogram, screening Mammogram, Screening, both breasts [facility] Start: 02-26-2017 End: 04-06-2017 Lipid panel Lipid Panel [facility] Start: 02-26-2017 End: 04-06-2017 TSH + Free T4 TSH + Free T4 [facility] Start: 05-03-2016 Mammography MAMMOGRAM [facility] Start: 2004 SHINGRIX VACCINE (1 of 2) SHINGRIX VACCINE (1 of 2) [facility] Start: 1999 COLOGUARD (FIT-DNA) COLOGUARD (FIT-D NA) [facility] Start: [address] COLONOGRAPHY [facility] Start: 1999 FECAL OCCULT BLOOD FECAL OCCULT BLOO D [facility] Start: 1999 SIGMOIDOSCOPY SIGMOIDOSCOPY [facility] Start: 1973 Urine microalbumin profile DTAP,TDAP,TD (1 - Tdap) [facility] Start: 1972 ANNUAL PCP TEAM GUEST EXPERIENCE MANAGER ARDEN DISEASE VISIT ANNUAL PCP TEAM CHRONIC DISEASE VISIT [facility] Start: 1972 HEPATITIS C SCREENING HEPATITIS C SC RICHARD [facility] Start: 1954 COVID-19 VACCINE (#1) COVID-19 VACCI NE (#1) [facility] CT Abdomen and Pelvi s WO contrast [facility] Work Phone: CTA Heart and Walker ry arteries W contrast IV [facility] MG Breast - bilatera l Screening [facility] End: 11-15-2023 Mri brain brain stem w/o contrast material MRI BRAIN WO IVCON Radiology Routine Torres's palsy 1 Occurrences starting 10/16/2022 until 11/15/2023 [facility] Work Phone: Comment on above: 1 Occurrences starti ng 10/16/2022 until 11/15/2023 Patient Education [facility] Work Phone: Patient referral [facility] Work Phone: US Pelvis [facility] Work Phone: US Pelvis transvaginal [facility] Work Phone: [facility] Payers Date Payer Category Payer Self-pay [id number] 2019 Medicare [id number] 2019 Medicare MEDICARE MEDICAR E A AND B [id number] 2019-Present [phone] [address] [address] [place] [address] Medicare [id number] 2019 Unknown [id number] 2019 Unknown ALL CARRIZALES ME DICARE SUPPLEMENT [id number] 2019-Present [phone] [address] [place] [address] Indemnity [id number] 1955 Unknown [id number] [id number] Unknown [id number] Unknown [id number] 2.16.840.1.271483.3.579.2.462 Unknown [id number] 2.16.840.1.490113.3.579.2.462 Unknown [id number] 2.16.840.1.967978.3.579.2.462 Unknown [id number] 2.16.840.1.791852.3.579.2.462 Unknown [id number] 2.16.840.1.343015.3.579.2.462 Unknown [id number] 2.16.840.1.600473.3.579.2.462 Unknown [id number] 2.16.840.1.677220.3.579.2.462 Unknown [id number] 2.16.840.1.136912.3.579.2.462 Unknown [id number] 2.16.840.1.614685.3.579.2.462 Unknown [id number] 2.16.840.1.979136.3.579.2.462 Unknown [id number] 2.16.840.1.228634.3.579.2.462 Unknown [id number] 2.16.840.1.138104.3.579.2.462 Unknown [id number] 2.16.840.1.072576.3.579.2.462 Unknown [id number] 2.16.840.1.312366.3.579.2.462 Unknown [id number] 2.16.840.1.348423.3.579.2.462 Unknown [id number] 2.16.840.1.305782.3.579.2.462 Unknown [id number] 2.16.840.1.990420.3.579.2.462 Unknown [id number] 2.16.840.1.682926.3.579.2.462 Unknown [id number] 2.16.840.1.500527.3.579.2.462 Unknown [id number] 2.16.840.1.462961.3.579.2.462 Social History Date Type Detail Facility Tobacco smoking stat us LAIS Unknown if ever smoked [facility] Work Phone: Start: 1955 Sex Assigned At Female W [facility] Start: 05-18-2021 End: 06-21-2023 Tobacco smoking status NHIS Unknown if ever smoked [facility] Start: 08-29-2022 End: 08-08-2024 Tobacco smoking status Never smoked tobacco (finding) [facility] Start: 07-19-2011 Tobacco use and exposure Smokeless tobacco non-user [facility] Start: 03-22-2022 End: 12-19-2022 Alcohol intake Current drinker of alcohol (finding) [facility] Start: 09-29-2014 Alcohol Comment [facility]ially [facility] Start: 1955 Sex Assigned At Not on file C [facility] Start: 12-12-2022 End: 12-19-2022 History of Social function [facility] Start: 12-12-2022 End: 12-19-2022 Tobacco use panel [facility] National Score (1-100), lower number is lower risk 72 [facility] Start: 10-22-2024 End: 10-29-2024 Sex Female (finding) [facility] Functional Status Date Assessment Result Facility 08-30-2022 Functional Status Up to bathroom [facility] 08-30-2022 Functional Status bilateral knee high l [facility] 08-30-2022 Functional Status NPO Status Maintained A [facility] 08-30-2022 Functional Status [facility] Mental Status Date Assessment Result Facility 08-30-2022 Mental Status Orientation Oriented x 4 [facility] 08-30-2022 Mental Status [facility] 08-30-2022 Mental Status [facility] 08-27-2022 Cognitive function Awake;Alert;A ppropriate;Follo ws Commands [facility] Work Phone: Clinical Notes 12-10-2014 to 12-04-2024 Note Date & Type Note Facility 12-04-2024 Evaluation note Diagnosis Onset Date Resolution Dyspnea on exertion acute December 042024 1:36pm Aortic ectasia, thoracic chronic December 04, 2024 1: 36pm Hypertension chronic December 04 1:36pm Pulmonary emboli resolved December 04, 2024 1:36pm [facility] Work Phone: 1(323) 162-514703-17-2025 Radiology Diagnostic study note [facility] Imaging Services [address] [place], [place] [address] CTA Chst, Abd, Pel W and/or WO MR#: [id number] Acct: [id number] Name: JENNIFER ZULETA Rep #: [id number] : 1955 F 69 From: Whitney Stewart MD PCP: Dr. Edel Nickerson MD Status: REG CL I Study:CTA Chst, Abd, Pel W and/or WO Date of Exam: 10/20/24 Exam# [id number] Ordering Dr: Socorro Nickerson MD PROCEDURE: CTA [...] mm posterior right hepatic low-attenuation lesions, likely simplecysts. Gallbladder: No ductal dilation. Common bile duct [...] use of iterative reconstruction technique). Reading Location: [facility] CC: Dr. Edel Nickerson MD ~ Roll Wrapper: Signed [facility]01-03-2025 NotePap Smear Specimen AdequacyJanuary 2024 12:59amComment.Satisfactory for evaluation. Endocervical and/or squamous metaplasticcells (endocervical component)are present.[facility] INTERFACED A#[id number] on above:Satisfactory for evaluation. Endocervical and/or squamous metaplasticcells (endocervical component)are present.08-08-2024 NotePap Smear Specimen AdequacyJanuary 2024 12:59amComment.Satisfactory for evaluation. Endocervical and/or squamous metaplasticcells (endocervical component)are present.[facility] INTER[facility]ACED A#[id number] Health PrebleComment on above:Satisfactory for evaluation. 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 acute August 08 2:34pm History of loop electrical excision procedure (LEEP) acute 2024 2:34pm Encounter for routine gynecological examination noneactive 2024 2:34pm GRACIELA I (cervical intraepithelial neoplasia I) acute Oct 2024 2:59pm [facility] Work Phone: 1(490) 934-234911-19-2024 Evaluation note* Diagnosis Onset Date Resolution Status Admit Date Dyspnea on exertion acute Novem alec 2023 10:49am Pulmonary emboli acute June 24, 2024 10:49am Aortic ectasia, thoracic chronic June 24, 2024 10:49am Elevated blood pressure reading in office without diagnosis of hypertension chronic Novemb er 2023 10:49am Elevated troponin resolved Novembe r 2023 10:49am 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 Medical Records Department [address] [place] [address] Discharge Summary 05/30/24 1145 MR#: [id number] Acct: [id number] Name: JENNIFER ZULETA Rep #: [id number] : 1955 69 From: Danni So DO PCP: Dr. Edel Nickerson MD Status:ADM IN Location: [place] [id number] Providers Date of Admission: 05/29/24 Date of [...] who presented to the emergency department at [facility] on 05/29/2020 for due to shortness of breath. Patient had a right shoulder replacement done at [facility] a few weeks ago and reported [...] Dopplers were canceled given it does not loom changer at this point in time or in the future. We did an ambulatory pulse ox and patient did not require oxygen at rest or with ambulation. Patient was discharged home with new prescription for Eliquis in stable condition on 05/30/2024. Her blood pressure was noted to be intermittently elevated. We did not add any new medication an (more content not included)...[facility]11-21-2023 Procedure [facility]08-24-2023 NoteHNO ID: [id number] Author: ALMA ROSA RIVERA PT Service: ? Author Type: Physical Therapist Type: Progress Notes Filed: 08/16/2023 09:50 Note Text: 08/16/2023 [facility] PHYSICAL THERAPY [...] improved movement at left frontalis-improvement noted 03/29/2023. [place] in home exercise program-met as instructed 03/29/2023. [...] improved movement at left frontalis-improvement noted 03/29/2023. [place] in home exercise program-met as instructed 03/29/2023. [...] score. OBJECTIVE MEASURES WITH LEVEL OF FUNCTION: [facility] Facial Grading System: 87/100 Resting Symmetry: Eye-symmetrical [...] to following Trigger/tender points: left temporalis, left color strainer Needle length: 15mm .6 in . Murphy used 3, needles removed 3. Dry needling [...] throughout 6: eye br (more content not included)...[facility]08-24-2023 History of Present illness Narrative* Alma [...] improved movement at left frontalis-improvement noted 03/29/2023. [place] in home exercise program-met as instructed 03/29/2023. [...] to following Trigger/tender points: left temporalis, left color strainer Needle length: 15mm .6 in . Murphy used 3, needles removed 3. Dry needling [...] Alma Rosa Rivera PT documented [facility]23 NoteHNO ID: [id number] Author: Zabrina Rojas PA-C Service: ? Author Type: Physician Diagrammer Type: Progress Notes Filed: 12/21/2022 8:10 AM Note Text: [facility] for General Neurology Name: Jennifer Zuleta Age: [age] year old Gender: female Primary Care Provider: Zhang M Sabina, DO Assessment/Plan: The encounter diagnosis was Neuralgia [...] ORAL Take by mouth. (more content not included)...[facility]05-09-2023 NoteHNO ID: [id number] Author: Alma Rosa Rivera PT Service: ? [...] will demonstrate improved movement at left frontalis. [place] in home exercise program. 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 OBJECTIVE MEASURES WITH LEVEL OF FUNCTION: [place] Facial Grading System: 78/100 Resting Symmetry: Eye-left eye narrow vs right Cheek (naso-labial fold)-more pronounced left vs right Mouth-symmetrical Symmetry of voluntary movement and synkinesis Forehead wrinkle-initiates slight movement with no synkinesis Gentle eye closure-movement complete with no synkinesis Open mouth smile--movement complete with no synkinesis Snarl-movement complete with no synkinesis, *decreased left color strainer motion noted Lip pucker-movement complete with no [...] Treatment Interventions: Neuromuscular Re-Educati (more content not included)...[facility]03-13-2023 History of Present illness Narrative* David [...] which included preparing to see the patient, [id number] patient care, completing clinical documentation, obtaining and/or reviewing separately obtained history, performing a medically appropriate examination, counseling and educating the pat ient/family/caregiver, ordering medications, tests, or procedures, communicating with other HCPs (not separately reported), and communicating results to the patient/family/caregiver. [facility] Miscellaneous Notes* Telephone Encounter - Brooklynn Alcala LPN - 10/05/2022 1:27 PM EST Pt has appt with Dr. Samayoa for new patient on October 16 2022. Called and spoke with pt about PCP, referring doctor and why she needs to be see. Pt stated she fell in June and got a concussion. She was seen at [facility] Jul 03. State Zhang Manjarrez is her PCP and pt has been under her care since then. Will get results and visit notes from [facility]. Brooklynn Alcala LPN documented in this [facility] Hospital Discharge instructions Patient Education 08/30/2022 14:08:23 Nausea and Vomiting, Adult, Lzdi-as-Halu Nausea and Vomiting, Adult Nausea is feeling [...] fruit juice). ?Low-calorie sports drinks. Eat bland, hswd-al-kpmsyd foods in small amounts as you are able, such as: ?Bananas. ?Applesauce. ?Rice. ?Low-fat (lean) meats. ?Pemberwick. ?Crackers. Avoid drinking fluids that have a lot of sugar or caffeine in them. This includes energy drinks, sports drinks, and soda. Avoid alcohol. Avoid spicy or fatty foods. General instructions Take rvoi-nac-xvdrzdq and prescription medicines only as told by your doctor. Drink enough fluid to keep your pee (urine) pale yellow. Wash your hands often with soap and water. If you cannot use soap and water, use hand ferry terminal agent. Make sure that all people in your [...] too much water in your body. Take lcxy-ngd-pnmeyre and prescription medicines only as told by [...] 01/08/2009 Document Revised: 11/14/2019 Document Reviewed: 12/31/2018 Today Tix Patient Education 2020 Today Tix Inc. 08/30/2022 14:06:54 How to Use an Incentive [...] as possible. If the spirometer includes a reading coach indicator, use this to guide you [...] 12/03/2007 Document Revised: 08/15/2018 Document Reviewed: 06/05/2018 Today Tix Patient Education 2020 [employer] Inc. 08/30/2022 14:06:29 Radial Fracture Radial Fracture A [...] applicable. This may take several hours. Take bsgx-yal-ppfwydn and prescription medicines only as told by [...] 01/03/2007 Document Revised: 07/17/2018 Document Reviewed: 07/17/2018 Today Tix Patient Education 2020 [employer]. 08/30/2022 14:06:14 Monitored Anesthesia Care, Care After [...] before eating solid foods. General instructions Take gegt-uar-eokaryt and prescription medicines only as told by [...] 11/12/2016 Document Revised: 10/21/2018 Document Reviewed: 11/12/2016 Today Tix Patient Education 2020 [employer]. 08/30/2022 14:06:06 AH - Post Axillary Block [...] at . If after hours, please call [facility] at and ask for the anesthesia department. Follow Up Care 08/29/2022 09:30:59 With:MARIN DOSS DO, Orthopedic Address: [address] [place] [address], [address] [place] [address] [phone] When: Unknown Comments:CALL DR DIAZ OFFICE FOR A FOLLOW UP APPOINTMENT. CALL DR DOSS WITH ANY QUESTIONS OR CONCERNS. GO TO THE EMERGENCY ROOM WITH ANY URGENT CONCERNS. [facility] Epi[facility] Thomas 01-25-2023 Summary of episode note Discharge Instructions Thank you for allowing [facility] to assist you with your healthcare needs. [...] EMERGENCY ROOM WITH ANY URGENT CONCERNS. Where: [address] [place] [address], [address] [place] [address]- [phone] Allergies penicillin (Anaphylactoid reaction) Medications Please ask [...] and suzan droe KOE done) Hycet, Lorcet, Eagle, Verdrocet, Vicodin, Xodol, Zamicet What is the [...] may report side effects to FDA at 1-311-RND-4678. What other drugs will affect acetaminophen and [...] affect acetaminophen and hydrocodone, including prescription and qevv-gdo-eijvapp medicines, vitamins, and herbal products. Not all [...] to ensure that the information provided by [employer]. ('Mult[employer]') is accurate, up-to-date, and complete, but no guarantee is made to that effect. Drug information contained herein may be time sensitive. [employer] information has been compiled for use by healthcare practitioners and consumers in the [place] and therefore [employer] does not warrant that uses outside of the [place] are appropriate, unless specifically indicated otherwise. norin.tvs drug information does not endorse drugs, diagnose patients or recommend therapy. norin.tvs drug information isan informational resource designed to assist licensed healthcare practitioners in caring for their p atients and/or to serve consumers viewing this service as a supplement to, and not a substitute for, the expertise, skill, knowledge and judgment of healthcare practitioners. The absence of a warningfor a given drug or drug combination in no way should be construed to indicate that the drug or drug combination is safe, effective or appropriate for any given patient. [employer] does not assume any responsibility for any aspect of healthcare administered with the aid of information [employer] provides. The information contained herein is not intended to cover all possible uses, directions, precautions, warnings, drug interactions, allergic reactions, or adverse effects. If you have questions about the drugs you are taking, check with your doctor, nurse or pharmacist. Copyright 5253-0751 [employer]. Version: 16.03. Revision Date: 09/07/2020. Education Materials [...] juice). ? Low-calorie sports drinks. Eat bland, tqld-pn-kctanj foods in small amounts as you are able, such as: ? Bananas. ? Applesauce. ? Rice. ? Low-fat (lean) meats. ? Pemberwick. ? Crackers. Avoid drinking fluids that have a lot of sugar or caffeine in them. This includes energy drinks, sports drinks, and soda. Avoid alcohol. Avoid spicy or fatty foods. General instructions Take hysc-raa-adbnojg and prescription medicines only as told by your doctor. Drink enough fluid to keep your pee (urine) pale yellow. Wash your hands often with soap and water. If you cannot use soap and water, use hand ferry terminal agent. Make sure that all people in your [...] too much water in your body. Take yboy-kby-ltngrcv and prescription medicines only as told by [...] 01/08/2009 Document Revised: 11/14/2019 Document Reviewed: 12/31/2018 Elsevier Patient Education 2020 Today Tix Inc. How To Use an Incentive Spirometer [...] as possible. If the spirometer includes a reading coach indicator, use this to guide you [...] 12/03/2007 Document Revised: 08/15/2018 Document Reviewed: 06/05/2018 ElseAcqua Innovations Patient Education 2020 Today Tix Inc. Radial Fracture A radial fracture is [...] applicable. This may take several hours. Take moew-jel-hsugqdn and prescription medicines only as told by [...] 01/03/2007 Document Revised: 07/17/2018 Document Reviewed: 07/17/2018 Today Tix Patient Education 2020 Ev[employer]. Monitored Anesthesia Care, Care After These instructions [...] before eating solid foods. General instructions Take cklp-hjy-rgyhsva and prescription medicines only as told by [...] 11/12/2016 Document Revised: 10/21/2018 Document Reviewed: 11/12/2016 Today Tix Patient Education 2020 Ev[employer]. POST AXILLARY BLOCK The purpose of the [...] at . If after hours, please call [facility] at and ask for the anesthesia department. Additional Information VACCINATE! IT SAVES LIVES! Members of the community who have not yet received the COVID-19 vaccine and would like to receive it can visit one of [facility] vaccine clinics. There are many vaccine clinic locations within the [facility]. For locations and available times, please visit [email or web address].[place].gov/. It is important to note that some COVID mobile vaccine clinics are held outdoors and may be canceled in rainy or stormy conditions. To learn more about pediatric vaccinations (ages 5-11), we invite you to visit the [employer] [facility] webpage. https://www.[facility].org/pages/9880-Eafsv-Qkfsfbccwrj-Wpoaumjath-Uelix-Xdu stions.htmlTo learn more about the COVID-19 vaccine, we invite you to visit the [employer] website for a list of frequently asked questions. [email or web address]/assets/Mrsaovrz-nbz-Pgplnaku/nzvbu-Dtqryle-Kfussrrtbz _Asked-Questions.pdf [facility] Patient Portal Access Instructions: Stay connected with your healthcare team and access your personal medical information anytime with the [facility] Patient Portal.If you would like a full copy of your medical records, please contact the [facility] Medical Records Department, Sunday through Sunday between 8a.m. and 4:30p.m. Please follow the directions below to access the portal: 1.Access the email account you provided upon registration to the [facility].2.Look for an invitation email from [facility].3.Open the email and access the invitation link: Accept Invitation to [facility]4.Fill in the required ferreira to create your account. Sign into www.[employer] with your username and password that you [...] you will allow to register on the [facility] Patient Portal for access to your information. You can also access the [facility] Patient Portal on the 3seventy jose. Simply click on Health Records under HealthData and then click on the [facility] logo. [...] Call your local pharmacy or go to http://bit.[employer]/7H1Kj3y to find one close to you.3.Make use of household items: Use cat litter or old coffee grounds to dispose medications if other options arenot available. Mix your drugs with these household products, seal them in an airtight container andthrow it into the garbage. Call [facility]: [phone] to be sure your drugs can be [...] Patient Education Materials Nausea and Vomiting, Adult, Fwzr-ve-Rpum How to Use an Incentive Spirometer Radial Fracture Monitored Anesthesia Care, Care After AH - Post Axillary Block Instructions(CUSTOM) Medication Leaflets acetaminophen-hydrocodone 300 mg-5 mg oral tablet My discharge plan and instructions have been reviewed and explained to me and I,JENNIFER ZULETA understand my current condition and have read and understand these discharge instructions. I have received a written copy of the plan/instructions. If I have questions, I am aware that I should contact my doctor. Patient/Division Sales Manager Signature: Date/Time: Relationship to Patient: Witness Name/Signature: Date/Time: [facility]01-25-2023 Anesthesiology Consult note Patient: JENNIFER ZULETA Age: 67 years Sex: Female : 1955 Associated Diagnoses: None Author: BALTAZAR RONDON SETTER COLD ROLLING MACHINE-DEVELOPMENT ASSOCIATE Assessment Postanesthesia assessment Vitals: Vital signs from [...] by BALTAZAR RONDON on 08/30/2022 01:46 PM [facility]01-25-2023 Note ORIGINAL Images acquired, not reported on this accession number. [facility]01-25-2023 Note ORIGINAL Images acquired, not reported on this accession number.[facility] Anesthesiology Consult note Patient: JENNIFER ZULETA Age: 67 years Sex: Female : 1955 Associated Diagnoses: None Author: BALTAZAR RONDON APRN-DEVELOPMENT ASSOCIATE Preoperative Information Time of last food or [...] Mother Colon cancer Father Procedure history: Bunionectomy ([id number]). Comments: 08/30/2022 11:02 LUNA - Jw Cross RN BILATERAL 1998 Neuroma ([id number]). Comments: 08/30/2022 11:03 Jw Dubois RN REMOVAL FROM LEFT ARM Cataract ([id number]). Comments: 08/30/2022 11:04 Jw Dubois RN BOTH [...] Signs(last 24 hrs) Last Charted Heart Rate Buskdzctg42 bpm (AUG 30 12:40) Resp Rate 14 br/min (AUG 30 12:10) TMA374 mmHg (AUG 30 12:35) DBP69 mmHg (AUG 30 12:35) Measurements from flowsheet : Measurements 08/30/2022 11:05 EST Height 161 cm Height in inches 63.4 inch(es) Admission Weight 70.5 kg Weight Lbs 155.1 lb [place] Body Weight 53.29 kg Admission Body Mass Index 27.2 m2 08/29/2022 10:30 EST Height 161 cm Admission Weight 70.5 kg Weight Method Stated [place] Body Weight 53.29 kg Pain assessment: Pain [...] Attendee SN - CAt - Role Performed Survey Methodologist 08/30/2022 12:42 EST SN - CTm - [...] Provider #1 Bedside Time Out BALTAZAR RONDON APRN-DEVELOPMENT ASSOCIATE Provider #2 Bedside Time Out Hanna Cooper [...] - Abnormality Type SCAB 08/30/2022 12:06 EST Gregory History and Physical History and Physical Update [...] - DRS - Immobilization Devices SPLINT FIBERGLASS [id number] 1RL/EA OG-4L1 08/30/2022 12:01 EST SN - [...] Attendee SN - CAt - Role Performed DEVELOPMENT ASSOCIATE SN - CAt - Role Performed Bias Binding Folder 1 SN - CAt - Role Performed Scrub 1 SN - CAt - Role Performed School Childcare Attendant 1 SN - CAt - Role Performed [...] Weight 70.5 kg Weight Lbs 155.1 lb [place] Body Weight 53.29 kg Admission Body Mass [...] ethnicity Skin Integrity Intact Mucous Membrane Color Abercrombie IV Present Present Characteristics of Speech Clear [...] Person #1 We May Share NATALIE DOUGLASS [phone] Designated Person #1 Relationship Daughter Height 161 cm Admission Weight 70.5 kg Weight Method Stated [place] Body Weight 53.29 kg Status No, per patient Sleep Apnea Pressure No Sleep Apnea BMI No Sleep Apnea Age Yes Sleep Apnea Neck No Sleep Apnea Gender No Advanced Directives Yes Advance Directive Type [place] Durable Power of Foreign Food Cook Specialty for [place], [place] Declaration (Living Will) Advance Directive Location [...] evident Teaching Method Explanation Preferred Written Language [place] Citizen Preferred Spoken Language [place] Citizen Pre Procedure/Surgery Education Appropriate expectations, Date/Time of [...] Note-Nursing Date\Time Correction . Assessment and Plan [place] Society of Anesthesiologists (ASA) physical status classification: Class II. Anesthetic Preoperative Plan Anesthetic technique: General. Postoperative pain management: axillary block. Informed consent: signed by patient. Digitally Signed by BALTAZAR RONDON on 08/30/2022 12:53 PM [facility]01-25-2023 Note Date of Service 08/30/22 History and Physical Update I have examined the patient; reviewed the History and Physical and there are no changes to the History and Physical unless noted below. Digitally Signed by MARIN DOSS DO on 08/30/2022 12:06 PM [facility]01-22-[address] Nielsen [facility] August 27, 2022 3:31pm Note Date/Time August 27, 2022 1 1:08am [facility] Medical Records Department [address] [place] [address] Emergency Department Summary 08/27/22 MR#: [id number] Acct: [id number] Name: JENNIFER ZULETA Rep #:[id number] : 1955 67 From: Hollis Nielsen DO PCP: Zhagn Muhammad DO Status:REG E R Location: ED [...] not hit her head or lose consciousness. [facility] Medical History Bunion GERD (gastroesophageal reflux disease) [...] 2 current occupational status: employed current occupation: [employer] Smoking Status: Never smoker alcohol intake: current [...] Galindo who recommended a sugar-tong splint. Patient rkuhgh7w with a total of 100 cc propofol given in 20 cc doses to maintain anesthesia. A well padded, hand fabricated sugar tong splint was applied to the right wrist. Patient tolerated procedue well. Postreduction x-rays interpreted by myself show there is some improvement although patient will need orthopedic follow-up. Orthopedic states that they could see her tomorrow. Patient given a prescription for Eagle for pain. Recommended to keep the wrist [...] your Primary Care Provider. Call [facility] ([phone]) or report to the closest Emergency Room. Call 911 if necessary. 08/27/22 1531 <Electronically signed by Hollis Nielsen DO> Cosigner Signature (if applicable): CC: Zhang Muhammad DO ~ Signed [facility] Work Phone: [phone] 425-864505-07-2015 History of Past illness Narrative* Problem Noted Date Resolved Date Special screening for malignant neoplasms, colon 12/10/2014 12/10/2014 ASCUS with positive high risk HPV 08/30/2011 12/21/2014 Other and unspecified hyperlipidemia 04/17/2006 07/19/2011 documented as of this encounter (statuses as of 10/05/2022) [facility] History of Past illness Narrative* Problem Noted Date Resolved Date Special screening for malignant neoplasms, colon 12/10/2014 12/10/2014 ASCUS with positive high risk HPV 08/30/2011 12/21/2014 Other and unspecified hyperlipidemia 04/17/2006 07/19/2011 documented as of this encounter (statuses as of 10/16/2022) [facility] History of Past illness Narrative* Problem Noted Date Resolved Date Special screening for malignant neoplasms, colon 12/10/2014 12/10/2014 ASCUS with positive high risk HPV 08/30/2011 12/21/2014 Other and unspecified hyperlipidemia 04/17/2006 07/19/2011 documented as of this encounter (statuses as of 11/15/2022) [facility] History of Past illness Narrative* Problem Noted Date Resolved Date Special screening for malignant neoplasms, colon 12/10/2014 12/10/2014 ASCUS with positive high risk HPV 08/30/2011 12/21/2014 Other and unspecified hyperlipidemia 04/17/2006 07/19/2011 documented as of this encounter (statuses as of 12/15/2022) [facility] History of Past illness Narrative* Problem Noted Date Diagnosed Date Resolved Date Special screening for malign ant neoplasms, colon 12/10/2014 12/10/2014 ASCUS with positive high risk HPV 08/30/2011 12/21/2014 Other and unspecified hyperlipidemia 04/17/2006 07/19/2011 documented as of this encounter (statuses as of 03/30/2023) [facility] [place] [facility] No data available for this section [facility] Evaluation noteNo assessment information available [facility] Work Phone: Evaluation note* Diagnosis Onset Date Resolution Status Encounter for routine gynecological examination noneactive [facility] Work Phone: Evaluation note* 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 documented in this encounter [facility] note* 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 Facial weakness documented in this encounter [facility] note* Diagnosis Cognitive impairment- Primary Unspecified persistent mental disorders due to conditions classified elsewhere documented in this encounter [facility] note* 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 Facial weakness documented in this encounter [facility] note* Diagnosis Onset Date Resolution Status Encounter for routine gynecological examination noneactive UTI (urinary tract infection) acute [facility] Work Phone: Evaluation note* Diagnosis Onset Date Resolution Status Encounter for routine gynecological examination noneactive UTI (urinary tract infection) acute Breast mass, right acute [facility] Work Phone: Reason for referral (narrative)No reason for referral information [facility]WSCC[facility] Work Phone: Summary Purpose Family History No Family History Records Found Relationship Condition Age at Onset Recorded Date/T mimi father Malignant neoplasm of colon 80 Relationship Condition Age at Onset Recorded Date/T mimi father Malignant neoplasm of colon 80 Kidney disorder Unknown mother Hypertension Unknown Advance Directives No Advanced Directives Records Found Advance Directive Response Recorded Date/ Time Living Will Yes July 23 3:57pm Power of Foreign Food Cook Specialty Yes July 23, 2020 3:57pm Advance Directive Response Recorded Date/ Time Living Will No July 03, 2 022 1:41pm Power of Foreign Food Cook Specialty No July 03, 2022 1:41pm Advance Directive Response Recorded Date/ Time Living Will No August 27 11:45am Power of Foreign Food Cook Specialty No August 27, 2022 11:45am Advance Directive Response Recorded Date/ Time Living Will No August 27 12:45pm Power of Foreign Food Cook Specialty No August 27, 2022 12:45pm Advance Directive Response Recorded Date/ Time Living Will No August 27 12:45pm Do you have a Healthcare Power of Foreign Food Cook Specialty? No August 27, 2022 12:45pm Living Will Yes May 29 11:44pm Do you have a Healthcare Power of Foreign Food Cook Specialty? Yes May 29, 2024 11:44pm Advance Directive Response Recorded Date/ Time Living Will No August 27 12:45pm Do you have a Healthcare Power of Foreign Food Cook Specialty? 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) Reason for Visit Encounter for routin e gynecological examination Chief Complaint 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) CONCERN FOR UTI SCREENING Reason for Visit Encounter for routin e gynecological examination UTI (urinary tract infection) Chief Complaint 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) CONCERN FOR UTI SCREENING ABNORMAL MAMMOGRAM (DONE 06/11/23) Reason for Visit Encounter for routin e gynecological examination UTI (urinary tract infection) Chief Complaint 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) CONCERN FOR UTI SCREENING ABNORMAL MAMMOGRAM (DONE 06/11/23) BIRADS 4 R BREAST RIGHT BREAST LESION RIGHT BREAST LESION Reason for Visit Encounter for routin e gynecological examination UTI (urinary tract infection) Breast mass, right Chief Complaint Admit Date S/P [facility] 05/30 ([facility] ER) June 24 10:49am EORDER July 23, 2024 11:48am EORDER- CXR August 05, 2024 9:30am 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) August 08, 2024 2: 34pm SCREENING September [...] 10:49am Elevated troponin June 24, 2024 10:49am 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 August 08, 2024 2:34pm History of loop electrical excision proc edure (LEEP) August 08, 2024 2:34pm Encounter for routine gynecological exam ination August 08, 2024 2:34pm GRACIELA I (cervical intraepithelial neoplasi a I) October 08, 2024 2:59pm Chief Complaint Admit Date EORDER July 23, 2024 11:48am EORDER- CXR August 05, 2024 9:30am 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) August 08, 2024 2: 34pm SCREENING September 24, 2024 12:59pm Colposcopy October 08, 2024 2:59 pm I26.99 Other pulmonary embolism without acute cor October 20, 2024 2:57pm Reason for Visit Admit Date 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 August 08, 2024 2:34pm History of loop electrical excision proc edure (LEEP) August 08, 2024 2:34pm Encounter for routine gynecological exam ination August 08, 2024 2:34pm GRACIELA I (cervical intraepithelial neoplasi a I) October 08, 2024 2:59pm Chief Complaint Admit Date 6 M FU December 04, 2024 1:36pm POLO March 04, 2025 6:33 am POLO March 04, 2025 1:13 pm Reason for Visit Admit Date Dyspnea on exertion December 04, 2024 1:36pm Aortic ectasia, thoracic December 04, 2024 1 :36pm Hypertension December 04, 2024 1:36pm Pulmonary emboli December 04, 2024 1:36pm Reason for Referral Specialty Diagnoses / Procedures Referred By Ruddy t Referred To Contact MR IMAGING Diagnoses Cognitive impairment Procedures MRI 3D POST PROCESSING 3D RENDERING W/INTERP&POSTPROC DIFF WORK STATION Reid Urrutia MD, [address] [place] [address] Mr Imaging Referral ID Status Reason Start Date Expiration Date Visits Requested Visits Authorized [id number] Pending Review Auto-Generat ed Referral 12/14/2022 01/13/2024 1 1 Specialty Diagnoses / Procedures Referred By Contac t Referred To Contact [facility] Diagnoses 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 Procedures CONSULT TO ZOO DIRECTOR OCCUPATIONAL THERAPY EVAL HIGH COMPLEX 60 MINS David Samayoa Jr., [place] [phone] [address] [place] [address] [facility] [address] [address] Referral ID Status Reason Start Date Expiration Date Visits Requested Visits Authorized [id number] Authorized PCP Requested Referral Auto-Generate d Referral 10/16/2022 10/16/2023 99 99 Specialty Diagnoses / Procedures Referred By Contac t Referred To Contact MR IMAGING Diagnoses Torres's palsy Procedures MRI BRAIN WO IVCON MRI BRAIN BRAIN STEM W/O CONTRAST MATERIAL David Samayoa Jr., MD [address] [place] [address] Mr Imaging Referral ID Status Reason Start Date Expiration Date Visits Requested Visits Authorized [id number] Authorized Auto-Generat ed Referral 10/16/2022 11/15/2023 1 1 Additional Source Comments INFORMATION SOURCE (unrecogn ized section and content) DATE CREATED AUTHOR 09/01/2021 [facility] DATE CREATED AUTHOR AUTHOR'S ORGANIZ ATION 09/07/2022 [facility] ([place]) DATE CREATED AUTHOR AUTHOR'S ORGANIZ ATION 11/19/2022 [facility] DATE CREATED AUTHOR AUTHOR'S ORGANIZ ATION 12/15/2022 [facility] DATE CREATED AUTHOR AUTHOR'S ORGANIZ ATION 11/17/2023 [facility] DATE CREATED AUTHOR AUTHOR'S ORGANIZ ATION 03/27/2025 [facility] Goals (unrecognized section and content) Goals [...] Contreras MD Family Provider Active Zhang Muhammad DO Primary Care Provider Active Team Status: Inactive Member Role Status Dates Zhang Muhammad DO Primary Care Provider Active Dr. Breonna Barrow MD Attending Provider, Emergency Provider Active Team Status: Inactive Member Role Status Dates Zhang Muhammad DO Primary Care Provider Active Dr. Hollis Nielsen , Emergency Provider Active Team Status: Active Member Role Status Dates Zhang Muhammad DO Primary Care Provider Active Dr. Gabo Bhagat MD Attending Provider Active Ray BRYAN PA-C Referring Provider Active Team Status: Inactive Member Role Status Dates Zhang Muhammad DO Primary Care Provider Active Dr. Hollis Nielsen , Attending Provider, Emergency Provider Active Team Status: Inactive Member Role Status Dates Zhang Muhammad DO Primary Care Provider Active Ray BRYAN PA-C Attending Provider, Referring Pr ovider Active Office Mover Relationship Specialty Start Date End Date Sascha Hinojosa MD [address] [place] [address] PCP - General 12/21/03 Office Mover Relationship Specialty Start Date End Date Zhang Muhammad DO [address] [facility] [address] [place] [address] PCP - General Family Medicine 10/06/22 Office Mover Relationship Specialty Start Date End Date Zhang Muhammad DO [address] [facility] [address] [place], [place] [id number] PCP - General Family Medicine 10/06/22 Office Mover Relationship Specialty Start Date End Date Zhang Muhammad DO [address] [facility] [address] [place] [address] PCP - General Family Medicine 10/06/22 Office Mover Relationship Specialty Start Date End Date Zhang Muhammad DO [address] [facility] [address] [place] [address] PCP - General Family Medicine 10/06/22 Team Status: Inactive Member Role Status Dates Zhang Muhammad DO Primary Care Provider, Referring Provider Active Dr. Breonna Jimenez DO Attending Provider Activ e Team Status: Inactive Member Role Status Dates Zhang Muhammad DO Primary Care Provider Active Dr. Breonna Jimenez , Attending Provider, Refe rring Provider Active Team [...] Team Status: Active Member Role Status Dates Edel Nickerson MD Primary Care Provider Active Team Status: Inactive Member Role Status Dates Edel Nickerson MD Primary Care Provider Active [...] 2024 End: July 23, 2024 Sascha Salazar ADULT LIVE IN CAREGIVER, ADULT LIVE IN CAREGIVER-C Attending Provider Active S tart: July 23, 2024 End: July 23, 2024 Sascha Salazar ADULT LIVE IN CAREGIVER, ADULT LIVE IN CAREGIVER-C Referring Provider Active S tart: July 23, 2024 End: July 23, 2024 Team Status: Inactive Member Role Status Darrick Nickerson MD Primary Care Provider Active St art: August 05, 2024 End: August 05, 2024 Piotr Bond ADULT LIVE IN CAREGIVER, ADULT LIVE IN CAREGIVER-C Attending Provider Active Start: August 05, 2024 End: August 05, 2024 Piotr Bond ADULT LIVE IN CAREGIVER, ADULT LIVE IN CAREGIVER-C Referring Provider Active Start: August 05, 2024 End: August 05, 2024 Team Status: Inactive Member Role Status Darrick Muhammad DO Referring Provider Active Start: August [...] Team Status: Inactive Member Role Status Darrick Nickerosn MD Primary Care Provider Active St art: [...] October 20, 2024 End: October 20, 2024 Team Status: Active Member Role/Relationship Status Darrick Nickerson MD Primary Care Provider Active Team Status: Inactive Member Role/Relationship Status Darrick Nickerson MD Primary Care Provider Active St art: December 04, 2024 End: December 04, 2024 Edel Nickerson MD Referring Provider Active Start : December 04, 2024 End: December 04, 2024 Dr. Vesna Hernandez MD Attending Provider Active Start: December 04, 2024 End: December 04, 2024 Team Status: Inactive Member Role/Relationship Status Darrick Nickerson MD Primary Care Provider Active St art: March 04, 2025 End: March 04, 2025 Dr. Vesna Hernandez MD Attending Provider Active Start: March 04, 2025 End: March 04, 2025 Dr. Vesna Hernandez MD Referring Provider Active Start: March 04, 2025 End: March 04, 2025 Team Status: Active Member Role/Relationship Status Darrick Nickerson MD Primary Care Provider Active St art: March 04, 2025 Dr. Vesna Hernandez MD Attending Provider Active Start: March 04, 2025 Dr. Vesna Hernandez MD Referring Provider Active Start: March 04, 2025 Dr. Vesna Hernandez MD Other Provider Active Star t: March 04, 2025 Care Team (unrecognized sect ion and content) Care Team Personnel Name: ZHANG MUHAMMAD DO Member Role: Primary Care Physician Address: Address: [address] [place] [address] Care Team Related Persons Name: BACILIO DOUGLASS Source Comments (unrecognize d section and content) In the event this informatio n is protected by the Federal Confidentiality of Alcohol and Drug Abuse Patient Records regulations: The Federal rules restrict any use of the information to criminally investigate or prosecute any alcohol or drug abuse patient.[facility] the event this information is protected by the Federal Confidentiality of Alcohol and Drug Abuse Patient Records regulations: The Federal rules restrict any use of the information to criminally investigate or prosecute any alcohol or drug abuse patient.[facility]bleIn the event this information is protected by the Federal Confidentiality of Alcohol and Drug Abuse Patient Records regulations: The Federal rules restrict any use of the information to criminally investigate or prosecute any alcohol or drug abuse patient.[facility]ble[facility] the event this information is protected by the Federal Confidentiality of Alcohol and Drug Abuse Patient Records regulations: The Federal rules restrict any use of the information to criminally investigate or prosecute any alcohol or drug abuse patient.[facility]bleIn the event this information is protected by the Federal Confidentiality of Alcohol and Drug Abuse Patient Records regulations: The Federal rules restrict any use of the information to criminally investigate or prosecute any alcohol or drug abuse patient.[facility] Reason for Visit (unrecogniz ed section and content) Reason Comments Appointment Calling for clarific ation on appt details and where she was last seen. 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 [facility]. provides no warranty or guarantee of the accuracy or completeness of information in this document.
--- NOTE | 2025-04-23 17:39 | CCTA_ITS ---
CCTA w/Cont Coronary Arteries Date of Study:: 04/07/25 Dyspnea on exertion Coronary Calcium Scoring: High-resolution Computed Tomographic imaging of the chest was performed on [04-07-25], with particular attention paid to the coronary arteries. Intravenous contrast agent was administered per protocol and images reconstructed and displayed. LEFT MAIN CORONARY ARTERY: Arises from the left coronary cusp and bifurcates the left anterior descending artery and left circumflex artery. [] LEFT ANTERIOR DESCENDING CORONARY ARTERY: Medium size vessel coursing towards the apex of the ventricle there is a first prominent diagonal branch which is noted. There is no significant atherosclerotic calcification or plaque present. [] LEFT CIRCUMFLEX CORONARY ARTERY: Nondominant vessel with no significant ather osclerotic plaquing or stenosis present. [] RIGHT CORONARY ARTERY: Dominant right coronary artery with no significant atherosclerotic plaquing or stenosis present. [] THORACIC AORTA: Normal [] PULMONARY ARTERY: Normal [] LEFT ATRIUM/APPENDAGE: [] MITRAL VALVE: [] AORTIC VALVE: [] LEFT VENTRICLE: [] CORONARY CALCIUM SCORE: Not performed [] Calcium Scoring Interpretation: Different methods to categorize the overall amount of coronary plaque. Overall amount CAC SIS Visual of coronary plaque P1 Mild -100 <2 1-2 vessels with mild amount of plaque P2 Moderate 101-300 3-4 1-2 vessels with moderate amount, 3 vessels with mild amount of plaque P3 Severe 301-999 5-7 3 vessels with moderate amount, 1 vessel with severe amount of plaque P4 Extensive >1000 >8 2-3 vessels with severe amount of plaque Conclusion: CT angiogram with no atherosclerotic obstructive lesions noted.
== END | disposition home or self-care (01) ==
LOC: CT 13:31
PROVIDERS: PCP Family Medicine; Referring Provider Physician Assistant Medical; Visit Provider Physician Assistant Medical
DX: R94.39 Abnormal result of other cardiovascular function study (principal)
CPT/HCPCS: 75574; 76380; Q9967; A4216

== ENCOUNTER → 2025-04-22 | Outpatient (CLI) | payer MEDICARE, BC, SELFPAY ==
--- NOTE | 2025-04-22 13:27 | CT_ITS ---
PROCEDURE: SINUS/FACIAL BONE 04/22/2025 REASON FOR EXAM: CHRONIC SINUSITIS History of traumatic brain injury. TECHNIQUE: Procedure Code: CTSI Modality: CT Procedure: SINUS/FACIAL BONE Coronal and Sagittal reconstruction series were provided. One or more dose reduction techniques were used (e.g., Automated exposure control, adjustment of the mA and/or kV according to patient size, use of iterative reconstruction technique). RADIATION DOSE SUMMARY: CTDlvol: 33.06 mGy DLP: 842.11 mGycm COMPARISON: None FINDINGS: Frontal: Unremarkable Ethmoid: Unremarkable Sphenoid: Unremarkable Maxillary: Unremarkable Turbinates: Unremarkable Nasal Septum: Midline Mastoids/Middle Ears: Unremarkable CT/Sinus/Facial Bone IMPRESSION: No evidence of sinusitis. Reading Location: [place] [address]
== END | disposition home or self-care (01) ==
LOC: CT 13:25
PROVIDERS: PCP Family Medicine; Referring Provider Otolaryngology; Visit Provider Otolaryngology
DX: J32.8 Other chronic sinusitis (principal)
CPT/HCPCS: 70486

== ENCOUNTER → 2025-04-28 | Outpatient (CLI) | payer MEDICARE, BC, SELFPAY | END | disposition home or self-care (01) | LOC: MFPLAB 14:41 | PROVIDERS: PCP Family Medicine; Visit Provider Family Medicine | DX: E03.9 Hypothyroidism, unspecified (principal) | CPT/HCPCS: 36415; 84443 ==